=== PATIENT | male | born 1945 | race Caucasian/White ===

== ENCOUNTER → 2016-11-11 | Outpatient (CLI) | payer MEDICARE, BC ==
[2016-11-11 10:07] LABS: Basophils % (A) 1 %; CH 33.6; CHCM 34.6; Eosinophils # (A) 0.6 k/uL (0-0.7); Eosinophils % (A) 9 %; HCT 44.9 % (39.0-53.0); HDW 2.91; HGB 14.8 gm/dL (13.0-17.5); Luc # (Auto) 0.16; Luc % (Auto) 2; Lymphocytes # (A) 1.1 k/uL (1.0-4.8); Lymphocytes % (A) 16 %; MCH 32.3 pg (25.0-35.0); MCV 97.6 fL (80.0-100.0); Mean Platelet Volume 7.7; Monocytes # (A) 0.3 k/uL (0-1.0); Monocytes % (A) 4 %; Neutrophils # (A) 4.6 k/uL (1.3-7.7); Neutrophils % (A) 68 %; RDW 13.3 % (11.5-15.5); WBC 6.7 k/uL (3.8-10.6); WBC (Perox) 7.53
[2016-11-11 10:40] LABS: ALT 36 U/L (21-72); AST 23 U/L (17-59); Alkaline Phosphatase 44 U/L (38-126); Anion Gap 12 mmol/L; Blood Urea Nitrogen 13 mg/dL (9-20); Calcium 9.5 mg/dL (8.4-10.2); Carbon Dioxide 26 mmol/L (22-30); Chloride 102 mmol/L (98-107); Cholesterol 137 mg/dL (<200); Glucose 154 mg/dL (74-99); HDL Cholesterol 39 mg/dL (40-60); Non-African American GFR(MDRD) >60 (>60 ml/min/1.73 sqM); Potassium 4.5 mmol/L (3.5-5.1); Sodium 140 mmol/L (137-145); Total Bilirubin 0.5 mg/dL (0.2-1.3); Total Protein 7.3 g/dL (6.3-8.2); Triglycerides 210 mg/dL (<150)
[2016-11-11 12:53] LABS: Hemoglobin A1C 6.8 % (4.2-6.1)
== END | disposition home or self-care (01) ==
LOC: LABWHC1 08:46
PROVIDERS: ATTEND Internal Medicine
DX: I10 Essential (primary) hypertension (principal); E78.5 Hyperlipidemia, unspecified; E11.9 Type 2 diabetes mellitus without complications; I25.10 Atherosclerotic heart disease of native coronary artery without angina pectoris
CPT/HCPCS: 36415; 80053; 80061; 83036; 84439; 84443; 85025

== ENCOUNTER 2017-05-14 07:50 | Day surgery (SDC) | payer MEDICARE, BC ==
[2017-05-13 09:29] VITALS: BMI 32.3
[~2017-05-14 07:50] MED LIST: LACTATED RINGERS 1,000 ML IV SCH
[2017-05-14 08:18] VITALS: TEMP 98
[2017-05-14] MEDS: NA PHOS,M-B/NA PHOS,DI-BA 133 ML ENEMA RECTAL ONE ×2 (08:27→09:19)
[2017-05-14 08:48] LABS: Glucose,Whole Blood 161 mg/dL (75-99)
[2017-05-14] MEDS ORDERED: LACTATED RINGERS 1,000 ML IV ONE (09:08)
[2017-05-14] MEDS ORDERED: LIDOCAINE 1% INJ 10MG/ML (20 ML MDV) ONE (10:02)
[2017-05-14] MEDS ORDERED: PROPOFOL 10 MG/ML 20 ML VIAL IV ONE (10:02)
--- NOTE | 2017-05-14 10:34 | P.PCN ---
Date of Procedure: 05/14/17 Preoperative Diagnosis: Postoperative Diagnosis: Procedure(s) Performed: Procedure: Total colonoscopy. Preoperative diagnosis: Screening for neoplasia. Postoperative diagnosis: Sigmoid diverticulosis with no evidence of acute diverticulitis, strictures, polyps or cancer. Preparation: HalfLytely prep and couple Fleet enemas before the procedure in the endoscopy unit. Sedation: Was provided by anesthesia. Brief clinical history: The patient is a 71-year-old male who is scheduled for this evaluation because of history of polyps for screening for neoplasia. His last exam was around 6 years ago. The patient has no abdominal complaints, bleeding or anemia. Procedure: With the patient on his left lateral decubitus position and after informed consent and adequate sedation, the perianal area was inspected and it did not show any fissures or fistulas. There were no masses felt on digital rectal examination. The Olympus CFQ 160L video colonoscope was then inserted in the rectum in the usual fashion and advanced to the cecum. There were multiple diverticular orifices seen scattered in the sigmoid with no evidence of acute diverticulitis or strictures. No polyps or tumors were seen. The mucosa appeared healthy. No other pathology noted. The patient tolerated the procedure well. Plan: The patient was reassured. Discussed dietary measures. He will follow up with you as planned. At his age, I did not recommend further surveillance and screening in 5 years and that can be kept as a contingency based on his overall health in the future. Implants: Indications for Procedure: Operative Findings: Description of Procedure:
[2017-05-14 10:38] LABS: Glucose,Whole Blood 158 mg/dL (75-99)
[2017-05-14 10:59] VITALS: BP 132/63; PULSE 66; RESP 20
== END 2017-05-14 11:42 | disposition home or self-care (01) ==
LOC: ORWHC2ENDO 07:50
DX: Z12.11 Encounter for screening for malignant neoplasm of colon (principal); K57.30 Diverticulosis of large intestine without perforation or abscess without bleeding; Z86.010 Personal history of colon polyps; I25.10 Atherosclerotic heart disease of native coronary artery without angina pectoris; E11.9 Type 2 diabetes mellitus without complications; J44.9 Chronic obstructive pulmonary disease, unspecified; I10 Essential (primary) hypertension; E78.5 Hyperlipidemia, unspecified; I38 Endocarditis, valve unspecified; J30.2 Other seasonal allergic rhinitis; H35.30 Unspecified macular degeneration; E07.9 Disorder of thyroid, unspecified; Z79.84 Long term (current) use of oral hypoglycemic drugs; Z79.1 Long term (current) use of non-steroidal anti-inflammatories (NSAID); Z79.02 Long term (current) use of antithrombotics/antiplatelets; Z79.899 Other long term (current) drug therapy
CPT/HCPCS: J2001; J2704; G0105; 45378

== ENCOUNTER 2017-07-20 19:27 | Emergency (ER) | payer MEDICARE, BC ==
[2017-07-20 20:11] VITALS: RESP 18
[2017-07-20] MEDS ORDERED: MAG HYDROX/AL HYDROX/SIMETH 30 ML, HYOSCYAMINE ELIXIR 10 ML, CIMETIDINE HCL 300 MG, LID... PO STA ×4 (20:29)
--- NOTE | 2017-07-20 20:39 | ED ---
General Adult HPI - General Source: patient, RN notes reviewed Mode of arrival: ambulatory Limitations: no limitations <Jeniffer Faustin - Last Filed: 07/20/17 22:15> <Rohit Fernandez - Last Filed: 07/21/17 00:08> - General Chief complaint: ENT Stated complaint: Sore Throat Time Seen by Provider: 07/20/17 20:03 - History of Present Illness Initial comments: This is a 71-year-old male who presents to emergency department with chief complaint of difficulty swallowing. Patient states that approximately 3 days ago he began to have a pain in his throat that he describes as sharp and shooting. Patient states that the pain has now decreased to a dull ache. He reports that now he is having difficulty swallowing and has not eaten since yesterday. He states when he does attempt to swallow there is a dull ache in the bottom of his throat. He denies any difficulty breathing. He denies any known injury or trauma. Denies fever, chills, chest pain, abdominal pain, nausea or vomiting, constipation or diarrhea, dysuria or hematuria, numbness or tingling, headache or vision changes. (Jeniffer Faustin) - Related Data Home Medications Medication Instructions Recorded Confirmed Clopidogrel [Plavix] 75 mg PO DAILY 06/22/15 07/20/17 Fosinopril [Monopril] 20 mg PO QAM 06/22/15 07/20/17 Simvastatin [Zocor] 20 mg PO HS 06/22/15 07/20/17 metFORMIN HCL [Glucophage] 500 mg PO BID 06/22/15 07/20/17 Aspirin 325 mg PO DAILY 05/13/17 07/20/17 Fosinopril [Monopril] 10 mg PO HS 05/13/17 07/20/17 Levothyroxine Sodium 25 mcg PO DAILY 05/13/17 07/20/17 Loratadine [Claritin] 10 mg PO HS 05/13/17 07/20/17 Hydrochlorothiazide [Hydrodiuril] 25 mg PO DAILY 07/20/17 07/20/17 Allergies Allergy/AdvReac Type Severity Reaction Status Date / Time No Known Allergies Allergy Verified 07/20/17 20:34 Review of Systems ROS Other: All systems not noted in ROS Statement are negative. <Jeniffer Faustin - Last Filed: 07/20/17 22:15> ROS Other: All systems not noted in ROS Statement are negative. <Rohit Fernandez - Last Filed: 07/21/17 00:08> ROS Statement: Those systems with pertinent positive or pertinent negative responses have been documented in the HPI. Past Medical History Past Medical History: Coronary Artery Disease (CAD), COPD, Diabetes Mellitus, Eye Disorder, Hyperlipidemia, Hypertension, Myocardial Infarction ([place]), Thyroid Disorder, Vascular Disorder Additional Past Medical History / Comment(s): SEASONAL ALLERGIES, MACULAR DEGENERATION, PVD. Last Myocardial Infarction Date:: 1996? History of Any Multi-Drug Resistant Organisms: None Reported Past Surgical History: Orthopedic Surgery Additional Past Surgical History / Comment(s): 06/27/15 ANA AORTAGRAM WITH PTBA & ANA STENTS. , LEFT SHOULDER WITH HARDWARE ( HARDWARE REMOVED) , LEFT KNEE ligament repair. , FASCIOTOMY OF RIGHT CALF . Past Anesthesia/Blood Transfusion Reactions: No Reported Reaction Past Psychological History: No Psychological Hx Reported Smoking Status: Former smoker Past Alcohol Use History: Rare Past Drug Use History: None Reported - Past Family History Sister(s) Family Medical History: Cancer Additional Family Medical History / Comment(s): Lung Cancer Father Family Medical History: Coronary Artery Disease (CAD), Diabetes Mellitus <Jeniffer Faustin - Last Filed: 07/20/17 22:15> General Exam Limitations: no limitations <Jeniffer Faustin - Last Filed: 07/20/17 22:15> <Rohit Fernandez - Last Filed: 07/21/17 00:08> - General Exam Comments Initial Comments: General: Awake and alert, well-developed; in no apparent distress. HEENT: Head atraumatic, normocephalic. Pupils are equal, round and reactive to light. Extraocular movements intact. Oropharynx moist with mild erythema.. No tonsillar enlargement or exudates. Neck: Supple. Normal ROM. Trachea midline. No adenopathy. Cardiovascular: Regular rate and rhythm. No murmurs, rubs or gallops. Chest symmetrical. Respiratory: Lungs clear to auscultation bilaterally. No wheezes, rales or rhonchi. Normal respiratory effort with no use of accessory muscles. Abdomen: Soft, non-tender, non-distended. No rigidity, rebound or guarding. Normal bowel sounds in all 4 quadrants. Skin: [place], warm and dry without rashes or lesions. Neurological: Alert and oriented x3. CN II-XII grossly intact. Speech is fluent and answers are appropriate. No focal neuro deficits. Psychiatric: Normal mood and affect. No overt signs of depression or anxiety noted. (Jeniffer Faustin) Course <Jeniffer Faustin - Last Filed: 07/20/17 22:15> <Rohit Fernandez - Last Filed: 07/21/17 00:08> Vital Signs 07/20/17 07/20/17 07/20/17 20:07 22:18 22:56 Temperature 97.9 F 98.0 F Pulse Rate 78 76 79 Respiratory 18 18 18 Rate Blood Pressure 157/71 182/59 162/79 O2 Sat by Pulse 96 96 96 Oximetry - Reevaluation(s) Reevaluation #1: This case was discussed with attending physician, Dr. Fernandez, who suggests full cardiac workup. Normal findings of soft tissue neck x-ray were discussed with the patient. This was discussed with the patient who is in agreement. He is in no acute distress at this time. Denies chest pain and difficulty breathing. 07/20/17 21:33 (Jeniffer Faustin) Reevaluation #2: 07/20/17 22:55 Patient was made aware of all findings. He is in no acute distress at this time it is feeling well. Lungs are clear to auscultation and heart sounds are normal. (Jeniffer Faustin) Reevaluation #3: 07/21/17 00:08 PA supervision did personally evaluate the patient did discuss findings with him. His physical exam is unremarkable with no neck chest or abdominal pain. Patient's pain did improved over the past week. It initially started when he tries to swallow something. The evaluation was negative for any acute cardiac event. He also states he had a stress test not too long ago that was normal. ( Rohit Fernandez) EKG Findings - EKG Comments: EKG Findings:: EKG performed at 21:51:42 revealed normal sinus rhythm with ventricular rate of 71 bpm GA interval 190, QRS duration 82 QT/QTC 406/441 <Jeniffer Faustin - Last Filed: 07/20/17 22:15> Medical Decision Making - Lab Data Result diagrams: 07/20/17 21:40 - EKG Data EKG shows normal: sinus rhythm Rate: normal Interpretation: normal EKG - Radiology Data Radiology results: report reviewed <Jeniffer Faustin - Last Filed: 07/20/17 22:15> - Lab Data Result diagrams: 07/20/17 21:40 07/20/17 21:40 <Rohit Fernandez - Last Filed: 07/21/17 00:08> - Medical Decision Making This is a 71-year-old male who presented to the emergency department with complaint of difficulty swallowing. Patient was provided a glass of water for swallow challenge. He was able to swallow 30 mL of water without coughing. Soft tissue neck x-ray revealed no acute abnormalities of soft tissues of the neck. The case was discussed with attending physician, Dr. Fernandez who also evaluated the patient. Full cardiac work up was performed. Troponin was negative.. Chest x-ray was negative for any acute abnormalities. Patient is in no acute distress and denies chest pain or shortness of breath. he'll be discharged home with recommendation to follow up with GI if difficulty with swallowing does not improve. Patient is agreement to the plan and voices understanding. All questions were answered. (Jeniffer Faustin) - Lab Data Lab Results 07/20/17 07/20/17 07/20/17 Range/Units 21:40 21:40 21:40 WBC 7.0 (3.8-10.6) k/uL RBC 4.01 L (4.30-5.90) m/uL Hgb 12.6 L (13.0-17.5) gm/dL Hct 38.0 L (39.0-53.0) % MCV 94.6 (80.0-100.0) fL MCH 31.3 (25.0-35.0) pg MCHC 33.1 (31.0-37.0) g/dL RDW 14.3 (11.5-15.5) % Plt Count 347 (150-450) k/uL Neutrophils % 73 % Lymphocytes % 14 % Monocytes % 4 % Eosinophils % 8 % Basophils % 0 % Neutrophils # 5.0 (1.3-7.7) k/uL Lymphocytes # 1.0 (1.0-4.8) k/uL Monocytes # 0.3 (0-1.0) k/uL Eosinophils # 0.6 (0-0.7) k/uL Basophils # 0.0 (0-0.2) k/uL PT (9.0-12.0) sec INR (<1.2) APTT (22.0-30.0) sec Sodium 134 L (137-145) mmol/L Potassium 4.6 (3.5-5.1) mmol/L Chloride 95 L (98-107) mmol/L Carbon Dioxide 22 (22-30) mmol/L Anion Gap 17 mmol/L BUN 12 (9-20) mg/dL Creatinine 0.70 (0.66-1.25) mg/dL Est GFR (MDRD) Af Amer >60 (>60 ml/min/1.73 sqM) Est GFR (MDRD) Non-Af >60 (>60 ml/min/1.73 sqM) Glucose 124 H (74-99) mg/dL Calcium 9.6 (8.4-10.2) mg/dL Magnesium 2.0 (1.6-2.3) mg/dL Total Bilirubin 0.7 (0.2-1.3) mg/dL AST 37 (17-59) U/L ALT 35 (21-72) U/L Alkaline Phosphatase 69 (38-126) U/L Total Creatine Kinase 96 (55-170) U/L CK-MB (CK-2) 2.1 (0.0-2.4) ng/mL CK-MB (CK-2) Rel Index 2.2 Troponin I <0.012 (0.000-0.034) ng/mL Total Protein 7.8 (6.3-8.2) g/dL Albumin 3.8 (3.5-5.0) g/dL 07/20/17 Range/Units 21:40 WBC (3.8-10.6) k/uL RBC (4.30-5.90) m/uL Hgb (13.0-17.5) gm/dL Hct (39.0-53.0) % MCV (80.0-100.0) fL MCH (25.0-35.0) pg MCHC (31.0-37.0) g/dL RDW (11.5-15.5) % Plt Count (150-450) k/uL Neutrophils % % Lymphocytes % % Monocytes % % Eosinophils % % Basophils % % Neutrophils # (1.3-7.7) k/uL Lymphocytes # (1.0-4.8) k/uL Monocytes # (0-1.0) k/uL Eosinophils # (0-0.7) k/uL Basophils # (0-0.2) k/uL PT 11.6 (9.0-12.0) sec INR 1.2 H (<1.2) APTT 20.2 L (22.0-30.0) sec Sodium (137-145) mmol/L Potassium (3.5-5.1) mmol/L Chloride (98-107) mmol/L Carbon Dioxide (22-30) mmol/L Anion Gap mmol/L BUN (9-20) mg/dL Creatinine (0.66-1.25) mg/dL Est GFR (MDRD) Af Amer (>60 ml/min/1.73 sqM) Est GFR (MDRD) Non-Af (>60 ml/min/1.73 sqM) Glucose (74-99) mg/dL Calcium (8.4-10.2) mg/dL Magnesium (1.6-2.3) mg/dL Total Bilirubin (0.2-1.3) mg/dL AST (17-59) U/L ALT (21-72) U/L Alkaline Phosphatase (38-126) U/L Total Creatine Kinase (55-170) U/L CK-MB (CK-2) (0.0-2.4) ng/mL CK-MB (CK-2) Rel Index Troponin I (0.000-0.034) ng/mL Total Protein (6.3-8.2) g/dL Albumin (3.5-5.0) g/dL - Radiology Data X-ray soft tissue neck findings: Epiglottis appears normal. Prevertebral soft tissues are not enlarged. There is some hypertrophic bridging osteophyte formation in the upper thoracic spine. Subglottic trachea has normal size. Impression: Spondylotic changes. Otherwise negative cervical soft tissue exam. Chest x-ray findings: There is slight blunting of left costophrenic angle. There is no heart failure. Thoracic aorta is atheromatous. Heart size is normal. Lungs are clear of infiltrate. There are ankylotic changes in the thoracic spine. Impression: Mild pleural diaphragmatic scarring at the left lung base is stable. Old left clavicle fracture. Changes of the thoracic spine could relate to ankylosing spondylitis. Chest x-ray stable compared to old exam. (Jeniffer Faustin) Disposition Time of Disposition: 23:12 <Jeniffer Faustin - Last Filed: 07/20/17 22:15> <Rohit Fernandez - Last Filed: 07/21/17 00:08> Clinical Impression: Esophageal pain Disposition: HOME SELF-CARE Condition: Poor Instructions: Pharyngitis (ED) Additional Instructions: Please follow up with Dr. Santoro, GI if no improvement with swallowing. Please follow up with primary care provider within 1-2 days. Return to emergency department if symptoms should worsen or any concerns arise. Referrals: Isabelle Fuentes MD [Primary Care Provider] - 1-2 days Malka Santoro MD [STAFF PHYSICIAN] - 1-2 days
--- NOTE | 2017-07-20 21:20 | XR ---
EXAMINATION TYPE: XR soft tissue neck DATE OF EXAM: 07/20/2017 COMPARISON: NONE HISTORY: Sore throat TECHNIQUE: 2 views FINDINGS: Epiglottis appears normal. Prevertebral soft tissues are not enlarged. There is some hypert rophic bridging osteophyte formation in the upper thoracic spine. Subglottic trachea has normal size. IMPRESSION: Spondylotic changes. Otherwise negative cervical soft tissue exam.
[2017-07-20 22:00] LABS: Basophils % (A) 0 %; CH 32.2; CHCM 34.2; Eosinophils # (A) 0.6 k/uL (0-0.7); Eosinophils % (A) 8 %; HDW 3.24; HGB 12.6 gm/dL (13.0-17.5); Luc # (Auto) 0.06; Luc % (Auto) 1; Lymphocytes % (A) 14 %; MCH 31.3 pg (25.0-35.0); MCHC 33.1 g/dL (31.0-37.0); MCV 94.6 fL (80.0-100.0); Mean Platelet Volume 7.6; Monocytes # (A) 0.3 k/uL (0-1.0); Monocytes % (A) 4 %; Neutrophils % (A) 73 %; RBC 4.01 m/uL (4.30-5.90); RDW 14.3 % (11.5-15.5)
[2017-07-20 22:09] LABS: ALT 35 U/L (21-72); AST 37 U/L (17-59); Alkaline Phosphatase 69 U/L (38-126); Anion Gap 17 mmol/L; Blood Urea Nitrogen 12 mg/dL (9-20); Calcium 9.6 mg/dL (8.4-10.2); Carbon Dioxide 22 mmol/L (22-30); Chloride 95 mmol/L (98-107); Glucose 124 mg/dL (74-99); Non-African American GFR(MDRD) >60 (>60 ml/min/1.73 sqM); Potassium 4.6 mmol/L (3.5-5.1); Sodium 134 mmol/L (137-145); Total Bilirubin 0.7 mg/dL (0.2-1.3); Total Protein 7.8 g/dL (6.3-8.2)
[2017-07-20 22:18] LABS: Creatine Kinase 96 U/L (55-170)
[2017-07-20 22:25] LABS: INR 1.2 (<1.2); Prothrombin Time 11.6 sec (9.0-12.0)
[2017-07-20 22:31] LABS: Creatine Kinase MB 2.1 ng/mL (0.0-2.4); Troponin I <0.012 ng/mL (0.000-0.034)
--- NOTE | 2017-07-20 22:40 | XR ---
EXAMINATION TYPE: XR chest 2V DATE OF EXAM: 07/20/2017 COMPARISON: 06/30/2017 HISTORY: Sore throat. Chest pain. TECHNIQUE: Frontal and lateral views of the chest are obtained. FINDINGS: There is slight blunting of left costophrenic angle. There is no heart failure. Thoracic a reji is atheromatous. Heart size is normal. Lungs are clear of infiltrate. There are ankylotic change s in the thoracic spine. IMPRESSION: Mild pleural diaphragmatic scarring at the left lung base is stable. Old left clavicle f racture. Changes in the thoracic spine could relate to ankylosing spondylitis. Chest x-ray stable com pared to old exam.
[2017-07-20 22:53] LABS: Partial Thromboplastin Time 20.2 sec (22.0-30.0)
[2017-07-20 22:57] VITALS: BP 162/79; PULSE 79; TEMP 98
== END 2017-07-20 23:17 | disposition home or self-care (01) ==
LOC: EC 19:27
DX: K22.8 Other specified diseases of esophagus (principal); M47.814 Spondylosis without myelopathy or radiculopathy, thoracic region; I70.0 Atherosclerosis of aorta; J98.4 Other disorders of lung; R13.10 Dysphagia, unspecified; R07.0 Pain in throat; J39.2 Other diseases of pharynx; Z79.82 Long term (current) use of aspirin; Z79.899 Other long term (current) drug therapy; Z79.84 Long term (current) use of oral hypoglycemic drugs; Z79.02 Long term (current) use of antithrombotics/antiplatelets; Z87.891 Personal history of nicotine dependence; I25.2 Old myocardial infarction; E07.9 Disorder of thyroid, unspecified; I73.9 Peripheral vascular disease, unspecified; E11.9 Type 2 diabetes mellitus without complications; I25.10 Atherosclerotic heart disease of native coronary artery without angina pectoris; I10 Essential (primary) hypertension; E78.5 Hyperlipidemia, unspecified; Z91.09 Other allergy status, other than to drugs and biological substances; Z87.81 Personal history of (healed) traumatic fracture
CPT/HCPCS: 36415; 70360; 71020; 80053; 82550; 82553; 83735; 84484; 85025; 85610; 85730; 93005; 99283

== ENCOUNTER 2017-08-12 08:14 | Day surgery (SDC) | payer MEDICARE, BC ==
[2017-08-07 08:56] VITALS: BMI 31.4
[~2017-08-12 08:14] MED LIST changes: +LIDOCAINE 1% 20 ML VIAL (10MG/ML) FOR IV START INTRADERMA PRN
[2017-08-12 08:32] VITALS: TEMP 97.8
[2017-08-12 08:58] LABS: Glucose,Whole Blood 150 mg/dL (75-99)
[2017-08-12] MEDS ORDERED: PROPOFOL 10 MG/ML 20 ML VIAL IV ONE (09:06)
--- NOTE | 2017-08-12 09:16 | P.PCN ---
Date of Procedure: 08/12/17 Procedure(s) Performed: BRIEF HISTORY: Patient is a 71-year-old, pleasant, white the male, scheduled for an upper endoscopy as a part of evaluation of progressive dysphagia to solids for the last 6 weeks duration. He lost 20 pounds since onset of the symptoms. He feels the food gets stuck in his throat area and has some heartburn also. His and scheduled for an upper endoscopy with possible dilation. PROCEDURE PERFORMED: Esophagogastroduodenoscopy with biopsy PREOPERATIVE DIAGNOSIS: GERD/dysphagia and progressive weight loss. IV sedation per anesthesia. PROCEDURE: After informed consent was obtained, the patient was brought into the endoscopy unit. IV sedation was administered by Anesthesia under continuous monitoring. Initially the Olympus GIF-140 video endoscope was inserted into the mouth. Esophagus intubated without any difficulty. It was gradually advanced into the stomach and duodenum and carefully examined. The bulb and the second part of the duodenum appeared normal. The scope at this time was withdrawn to the stomach, adequately insufflated with air, and upon careful examination, mucosa of the antrum, had mild diffuse gastritis and biopsies were done from this area. The body, cardia and the fundus appeared normal. The scope was then withdrawn into the esophagus. The GE junction was located at 42 cm from the incisors. Small to moderate size hiatal hernia noted There was short segment of Garcia's esophagus extending 1-1.5 cm proximal to the GE junction and this was biopsied. The stomach esophagus appeared normal. There were no erosions or ulcerations seen and the patient tolerated the procedure well. IMPRESSION: 1. Short segment Garcia's esophagus. 2. Small hiatal hernia 3. Mild antral gastritis. RECOMMENDATIONS: The findings of this examination were discussed with the patient as well as his family. He was advised to follow with the biopsy results. He will be started on Prilosec 20 mg twice daily half hour before breakfast and dinnertime and follow anti-reflex measures. He'll be seen in office in 3 weeks.
[2017-08-12 09:36] VITALS: PULSE 69
[2017-08-12 09:51] VITALS: BP 125/67; RESP 16
== END 2017-08-12 09:59 | disposition home or self-care (01) ==
LOC: ORWHC2ENDO 08:14
PROVIDERS: ATTEND Internal Medicine Gastroenterology
DX: K29.50 Unspecified chronic gastritis without bleeding (principal); K22.70 Barrett's esophagus without dysplasia; K44.9 Diaphragmatic hernia without obstruction or gangrene; I25.10 Atherosclerotic heart disease of native coronary artery without angina pectoris; I10 Essential (primary) hypertension; E78.5 Hyperlipidemia, unspecified; J44.9 Chronic obstructive pulmonary disease, unspecified; E11.9 Type 2 diabetes mellitus without complications; E07.9 Disorder of thyroid, unspecified; Z79.899 Other long term (current) drug therapy; Z79.84 Long term (current) use of oral hypoglycemic drugs; Z79.02 Long term (current) use of antithrombotics/antiplatelets; Z79.51 Long term (current) use of inhaled steroids
CPT/HCPCS: 88305; 88342; 43239; J2704

== ENCOUNTER → 2017-10-08 | Outpatient (CLI) | payer MEDICARE, BC ==
[2017-10-08 11:50] LABS: Blood Urea Nitrogen 12 mg/dL (9-20)
--- NOTE | 2017-10-08 12:33 | CT ---
EXAMINATION TYPE: CT brain w con, CT orbits w con DATE OF EXAM: 10/08/2017 COMPARISON: MRI orbits 09/05/[address] orbits 09/02/2017. HISTORY: Sixth Nerve Palsy CT DLP: 1138.07 (accession [id number]), 322.6 (accession [id number]) mGycm Automated exposure control for dose reduction was used. CONTRAST: Performed with IV Contrast, patient injected with 100 mL of Omnipaque 300. Contrast-enhanced CT of the brain and orbits was performed with bone and soft tissue window settings submitted. FINDINGS: CT brain: The ventricles are midline. No evidence for enhancing mass lesion. Mild periventricular whi te matter ischemic demyelination. No evidence for intracranial hemorrhage or extra-axial collection. The bony calvarium is intact. Orbits: No intra or extraconal lesions are identified. The left optic nerve appears to be somewhat th ickened relative to its right-sided counterpart essentially unchanged from prior examination. No evid ence for proptosis. Again noted is mild thickening of the medial left rectus muscle. Improved strandi ng involving the intraconal fat on the left. Remaining extraocular muscles are within normal limits. No definite preseptal cellulitis seen at this time. Lacrimal glands are symmetric and unremarkable at this time. IMPRESSION: 1. There is stable thickening of the left optic nerve and medial rectus muscle on the left. Intracona l fat demonstrates minimal stranding which appears to be improved relative to the prior examination. No enhancing orbital or intracranial lesion identified.
== END | disposition home or self-care (01) ==
LOC: RADCTMAIN 11:06
PROVIDERS: ATTEND Ophthalmology
DX: H47.092 Other disorders of optic nerve, not elsewhere classified, left eye (principal)
CPT/HCPCS: 82565; 84520; 70460; 70481; 36415; Q9967

== ENCOUNTER 2017-10-09 12:46 | Emergency (ER) | payer MEDICARE, BC ==
[2017-10-09 13:02] VITALS: TEMP 97.9
--- NOTE | 2017-10-09 13:51 | ED ---
Extremity Problem HPI - General Chief complaint: Extremity Problem,Nontraumatic Stated complaint: Swollen Hand Time Seen by Provider: 10/09/17 13:03 Source: patient, RN notes reviewed Mode of arrival: ambulatory Limitations: no limitations - History of Present Illness Initial comments: 72-year-old male presents emergency Department chief complaint of left hand redness and swelling. Patient states present last few days minimally painful. States that ice was taken away states it feels that if something may have bit his hand. Patient denies fever, chills he states redness is not spreading he states he is [id number]. He states nothing other than ice helps his symptoms. Patient offers no other complaints. - Related Data Home Medications Medication Instructions Recorded Confirmed Clopidogrel [Plavix] 75 mg PO DAILY 06/22/15 10/09/17 Fosinopril [Monopril] 20 mg PO QAM 06/22/15 10/09/17 Simvastatin [Zocor] 20 mg PO HS 06/22/15 10/09/17 Fosinopril [Monopril] 10 mg PO HS 05/13/17 10/09/17 Levothyroxine Sodium 25 mcg PO DAILY 05/13/17 10/09/17 Loratadine [Claritin] 10 mg PO DAILY 05/13/17 10/09/17 Hydrochlorothiazide [Hydrodiuril] 25 mg PO DAILY 07/20/17 10/09/17 metFORMIN HCL 1,000 mg PO BID 08/07/17 10/09/17 Previous Rx's Medication Instructions Recorded Aspirin EC [Ecotrin Low Dose] 81 mg PO DAILY #30 tablet. 09/05/17 Cephalexin [Keflex] 500 mg PO Q6HR #40 cap 10/09/17 Triamcinolone 0.1% Cream [Kenalog] 1 applicatio TOPICAL BID #15 gram 10/09/17 Allergies Allergy/AdvReac Type Severity Reaction Status Date / Time No Known Allergies Allergy Verified 10/09/17 13:23 Review of Systems ROS Statement: Those systems with pertinent positive or pertinent negative responses have been documented in the HPI. ROS Other: All systems not noted in ROS Statement are negative. Past Medical History Past Medical History: Asthma, COPD, Diabetes Mellitus, Eye Disorder, GERD/Reflux , Hyperlipidemia, Hypertension, Myocardial Infarction ([place]), Osteoarthritis ([place]) , Pneumonia, Thyroid Disorder, Vascular Disorder Additional Past Medical History / Comment(s): MACULAR DEGENERATION, PVD. hx heart murmur,diverticulosis, carotid stenosis Last Myocardial Infarction Date:: 1996? History of Any Multi-Drug Resistant Organisms: None Reported Past Surgical History: Orthopedic Surgery Additional Past Surgical History / Comment(s): ANA AORTAGRAM WITH ANA STENTS. , LEFT SHOULDER WITH HARDWARE ( HARDWARE REMOVED) , LEFT KNEE ligament repair. colonocopy , FASCIOTOMY OF RIGHT CALF egd w/bx. Past Anesthesia/Blood Transfusion Reactions: No Reported Reaction Past Psychological History: No Psychological Hx Reported Smoking Status: Former smoker Past Alcohol Use History: None Reported Past Drug Use History: None Reported - Past Family History Sister(s) Family Medical History: Cancer Additional Family Medical History / Comment(s): Lung Cancer Mother Family Medical History: No Reported History Additional Family Medical History / Comment(s): from "natural causes" Father Family Medical History: Coronary Artery Disease (CAD), Diabetes Mellitus General Exam Limitations: no limitations General appearance: alert, in no apparent distress Head exam: Present: atraumatic, normocephalic, normal inspection Respiratory exam: Present: normal lung sounds bilaterally. Absent: respiratory distress, wheezes, rales, rhonchi, stridor Cardiovascular Exam: Present: regular rate, normal rhythm, normal heart sounds. Absent: systolic murmur, diastolic murmur, rubs, gallop, clicks Extremities exam: Present: other (There is an area of erythema approximately 3 cm in diameter on the dorsal aspect of the hand no Streaking erythema noted of the arm there is no tenderness in the epitrochlear region or left axilla., Arm is neurovascularly intact) Skin exam: Present: warm, dry, intact, normal color. Absent: rash Course Vital Signs 10/09/17 12:58 Temperature 97.9 F Pulse Rate 82 Respiratory 17 Rate Blood Pressure 114/75 O2 Sat by Pulse 99 Oximetry Medical Decision Making - Medical Decision Making 72-year-old male presented for left hand redness and swelling. Patient's symptoms improved with ice. Patient symptoms appear to be cellulitis. This may be caused by possible insect bite. Patient given antibiotics and hydrocortisone cream for local reaction. Disposition Clinical Impression: Cellulitis of left hand Disposition: HOME SELF-CARE Condition: Stable Instructions: Cellulitis (ED) Additional Instructions: Please return to the Emergency Department if symptoms worsen or any other concerns. Prescriptions: Cephalexin [Keflex] 500 mg PO Q6HR #40 cap Triamcinolone 0.1% Cream [Kenalog] 1 applicatio TOPICAL BID #15 gram Referrals: Isabelle Fuentes MD [Primary Care Provider] - 1-2 days Time of Disposition: 13:50
--- NOTE | 2017-10-09 13:54 | XR ---
EXAMINATION TYPE: XR hand complete LT DATE OF EXAM: 10/09/2017 CLINICAL HISTORY: Red and swollen left hand without known trauma. Hand pain. TECHNIQUE: Frontal, lateral and oblique images of the left hand are obtained. COMPARISON: None. FINDINGS: There is no acute fracture/dislocation evident in the left hand. Mild degenerative changes are seen at the first metacarpophalangeal joint and distal interphalangeal joints demonstrated as ma rginal osteophytes, posterior surface sclerosis and joint space narrowing.. The overlying soft tissu e appears unremarkable. IMPRESSION: There is no acute fracture or dislocation in the left hand. Mild degenerative changes th at given distribution are most osteoarthritis.
[2017-10-09 14:07] VITALS: PULSE 80; RESP 12
[2017-10-09 14:09] VITALS: BP 105/49
== END 2017-10-09 14:13 | disposition home or self-care (01) ==
LOC: EC 12:46
DX: L03.114 Cellulitis of left upper limb (principal); E78.5 Hyperlipidemia, unspecified; I10 Essential (primary) hypertension; E11.9 Type 2 diabetes mellitus without complications; I73.9 Peripheral vascular disease, unspecified; E07.9 Disorder of thyroid, unspecified; I25.2 Old myocardial infarction; Z87.891 Personal history of nicotine dependence; Z79.02 Long term (current) use of antithrombotics/antiplatelets; Z79.84 Long term (current) use of oral hypoglycemic drugs; Z79.899 Other long term (current) drug therapy; Z86.79 Personal history of other diseases of the circulatory system
CPT/HCPCS: 99283

== ENCOUNTER 2017-11-08 12:30 | Emergency (ER) | payer MEDICARE, BC ==
[2017-11-08 12:48] VITALS: TEMP 98
[2017-11-08 13:02] VITALS: BP 137/64
[2017-11-08] MEDS ORDERED: CEPHALEXIN 500 MG CAP PO STA (13:03)
--- NOTE | 2017-11-08 13:05 | ED ---
Skin/Abscess/FB HPI - General Chief complaint: Skin/Abscess/Foreign Body Stated complaint: Poss Cellulitis Time Seen by Provider: 11/08/17 12:48 Source: patient Mode of arrival: ambulatory Limitations: no limitations - History of Present Illness Initial comments: 72-year-old male patient presents to the emergency department today for evaluation of redness and swelling to the dorsal aspect of the left hand. Patient states that he noticed the redness and swelling yesterday. States he previously was treated for cellulitis of this and last month. He states he did complete the antibiotics and full. States he did have full resolution of the infection however yesterday it started again. Patient states he is having some minor discomfort to the left thumb. States that he has been shoveling outside, but denies any other injuries. He denies any fevers or chills. Denies any other symptoms. Patient denies any recent shortness breath, chest pain, abdominal pain, nausea, vomiting, diarrhea, constipation, back pain, numbness, tingling, dizziness, weakness, hematuria, dysuria, urinary urgency, urinary frequency, headache, visual changes, or any other complaints. - Related Data Home Medications Medication Instructions Recorded Confirmed Clopidogrel [Plavix] 75 mg PO DAILY 06/22/15 10/09/17 Fosinopril [Monopril] 20 mg PO QAM 06/22/15 10/09/17 Simvastatin [Zocor] 20 mg PO HS 06/22/15 10/09/17 Fosinopril [Monopril] 10 mg PO HS 05/13/17 10/09/17 Levothyroxine Sodium 25 mcg PO DAILY 05/13/17 10/09/17 Loratadine [Claritin] 10 mg PO DAILY 05/13/17 10/09/17 Hydrochlorothiazide [Hydrodiuril] 25 mg PO DAILY 07/20/17 10/09/17 metFORMIN HCL 1,000 mg PO BID 08/07/17 10/09/17 Previous Rx's Medication Instructions Recorded Aspirin EC [Ecotrin Low Dose] 81 mg PO DAILY #30 tablet. 09/05/17 Cephalexin [Keflex] 500 mg PO Q6HR #40 cap 10/09/17 Triamcinolone 0.1% Cream [Kenalog] 1 applicatio TOPICAL BID #15 gram 10/09/17 Cephalexin [Keflex] 500 mg PO Q6H #40 cap 11/08/17 Allergies Allergy/AdvReac Type Severity Reaction Status Date / Time No Known Allergies Allergy Verified 11/08/17 12:48 Review of Systems ROS Statement: Those systems with pertinent positive or pertinent negative responses have been documented in the HPI. ROS Other: All systems not noted in ROS Statement are negative. Past Medical History Past Medical History: Asthma, COPD, Diabetes Mellitus, Eye Disorder, GERD/Reflux , Hyperlipidemia, Hypertension, Myocardial Infarction ([place]), Osteoarthritis (OA) , Pneumonia, Thyroid Disorder, Vascular Disorder Additional Past Medical History / Comment(s): MACULAR DEGENERATION, PVD. hx heart murmur,diverticulosis, carotid stenosis Last Myocardial Infarction Date:: 1996? History of Any Multi-Drug Resistant Organisms: None Reported Past Surgical History: Orthopedic Surgery Additional Past Surgical History / Comment(s): ANA AORTAGRAM WITH ANA STENTS. , LEFT SHOULDER WITH HARDWARE ( HARDWARE REMOVED) , LEFT KNEE ligament repair. colonocopy , FASCIOTOMY OF RIGHT CALF egd w/bx. Past Anesthesia/Blood Transfusion Reactions: No Reported Reaction Past Psychological History: No Psychological Hx Reported Smoking Status: Former smoker Past Alcohol Use History: None Reported Past Drug Use History: None Reported - Past Family History Sister(s) Family Medical History: Cancer Additional Family Medical History / Comment(s): Lung Cancer Mother Family Medical History: No Reported History Additional Family Medical History / Comment(s): from "natural causes" Father Family Medical History: Coronary Artery Disease (CAD), Diabetes Mellitus General Exam Limitations: no limitations General appearance: alert, in no apparent distress, other (This is a well- developed, well-nourished elderly male patient in no acute distress. Vital signs upon presentation are temperature 98.0F, pulse 85, respirations 18, blood pressure 91/54, did recheck and was 137/64. Pulse ox 94% on room air.) Eye exam: Present: normal appearance, PERRL, EOMI. Absent: scleral icterus, conjunctival injection, periorbital swelling ENT exam: Present: normal exam, normal oropharynx, mucous membranes moist Respiratory exam: Present: normal lung sounds bilaterally. Absent: respiratory distress, wheezes, rales, rhonchi, stridor Cardiovascular Exam: Present: regular rate, normal rhythm, normal heart sounds. Absent: systolic murmur, diastolic murmur, rubs, gallop, clicks Extremities exam: Present: full ROM, normal capillary refill, other (Swelling, redness to the dorsal aspect of the left hand, warmth near the thumb. Erythema is blanchable. Erythema does not extend over the joint spaces. Patient has full range of motion without pain or limitation. Radial pulse 2+.). Absent: normal inspection, tenderness, pedal edema, joint swelling, calf tenderness Neurological exam: Present: alert, oriented X3, CN II-XII intact Psychiatric exam: Present: normal affect, normal mood Skin exam: Present: warm, dry, intact, normal color. Absent: rash Course Vital Signs 11/08/17 11/08/17 12:46 13:01 Temperature 98.0 F Pulse Rate 85 Respiratory 18 Rate Blood Pressure 91/54 137/64 O2 Sat by Pulse 94 L Oximetry Medical Decision Making - Medical Decision Making 72-year-old male patient presented to the emergency department today for evaluation of redness and swelling to the dorsal aspect of the left hand. Physical exam is consistent with cellulitis of the hand. He will be started on Keflex. Patient is afebrile. Vital signs are stable. Patient's does have an appointment with the primary care physician tomorrow, patient states that he will have the physician look at his hand. Return parameters were discussed in detail. He is instructed to return here for any new, worsening, or concerning symptoms. He verbalizes understanding and agrees with this plan. Disposition Clinical Impression: Cellulitis of left hand Disposition: HOME SELF-CARE Condition: Good Instructions: Cellulitis (ED) Additional Instructions: Complete antibiotic prescription in full, even if her symptoms improve. Follow- up with your primary care physician for recheck in 1-2 days. Return here for recheck especially if you develop fever or if the redness starts to spread. Return here immediately for any new, worsening, or concerning symptoms. Prescriptions: Cephalexin [Keflex] 500 mg PO Q6H #40 cap Referrals: Isabelle Fuentes MD [Primary Care Provider] - 1-2 days Time of Disposition: 13:04
[2017-11-08 13:26] VITALS: PULSE 80; RESP 16
== END 2017-11-08 13:27 | disposition home or self-care (01) ==
LOC: EC 12:30
DX: L03.114 Cellulitis of left upper limb (principal); E78.5 Hyperlipidemia, unspecified; E07.9 Disorder of thyroid, unspecified; E11.9 Type 2 diabetes mellitus without complications; I10 Essential (primary) hypertension; I25.2 Old myocardial infarction; Z87.891 Personal history of nicotine dependence; Z79.02 Long term (current) use of antithrombotics/antiplatelets; Z79.84 Long term (current) use of oral hypoglycemic drugs; Z79.899 Other long term (current) drug therapy
CPT/HCPCS: 99283

== ENCOUNTER → 2017-11-09 | Outpatient (CLI) | payer MEDICARE, BC ==
[2017-11-09 15:17] LABS: Anisocytosis Slight; Basophils % (A) 0 %; Eosinophils # (A) 0.7 k/uL (0-0.7); Eosinophils % (A) 8 %; HCT 28.3 % (39.0-53.0); HGB 8.7 gm/dL (13.0-17.5); Hypochromasia Moderate; Lymphocytes # (A) 0.8 k/uL (1.0-4.8); Lymphocytes % (A) 9 %; MCH 26.2 pg (25.0-35.0); MCHC 30.7 g/dL (31.0-37.0); Monocytes # (A) 0.2 k/uL (0-1.0); Monocytes % (A) 3 %; Neutrophils # (A) 7.2 k/uL (1.3-7.7); Neutrophils % (A) 80 %; Platelet Count 419 k/uL (150-450); RBC 3.31 m/uL (4.30-5.90); RDW 16.5 % (11.5-15.5); WBC 9.1 k/uL (3.8-10.6)
[2017-11-09 15:20] LABS: MCV 85.5 fL (80.0-100.0)
[2017-11-09 19:07] LABS: Vitamin D 25 Hydroxy 54.2 ng/mL (30.0-100.0)
[2017-11-09 20:37] LABS: Thyroid Peroxidase Antibodies <28.0 U/mL (0.0-60.0)
[2017-11-10 05:24] LABS: Angiotensin-1 Converting Enz. 5 U/L (8-52)
[2017-11-10 12:01] LABS: Thyroid Stim Immun Quant <0.10 IU/L (<0.10)
[2017-11-10 15:00] LABS: C-ANCA <1:20 Titer (<1:20); P-ANCA <1:20 Titer (<1:20)
[2017-11-12 18:38] LABS: Selenium 107 mcg/L (63-160)
[2017-11-17 10:35] LABS: Lysozyme, Serum or Body Fluid 11.2 mcg/mL (5.0-11.0)
== END | disposition home or self-care (01) ==
LOC: LABWHC1 14:02
PROVIDERS: ATTEND Ophthalmology Ophthalmic Plastic and Reconstructive Surgery
DX: E56.9 Vitamin deficiency, unspecified (principal); E05.00 Thyrotoxicosis with diffuse goiter without thyrotoxic crisis or storm; H05.10 Unspecified chronic inflammatory disorders of orbit; H02.846 Edema of left eye, unspecified eyelid
CPT/HCPCS: 36415; 82164; 82306; 84255; 84445; 84481; 85025; 85549; 86255; 86376

== ENCOUNTER → 2017-11-13 | Outpatient (CLI) | payer MEDICARE, BC ==
[2017-11-13 19:23] LABS: Folate, Serum 21.1 ng/mL; Iron Saturation 7.96 (15.00-50.00); Protein, Total 6.6 g/dL (6.2-8.2)
[2017-11-17 09:55] LABS: Albumin 2.32 g/dL (3.80-4.90); Gamma Globulin 1.63 g/dL (0.70-1.50)
[2017-11-17 11:11] LABS: Lyme IgG/IgM 0.1 Index
== END | disposition home or self-care (01) ==
LOC: LABWHC1 13:29
PROVIDERS: ATTEND Internal Medicine Infectious Disease
DX: D64.9 Anemia, unspecified (principal)
CPT/HCPCS: 36415; 82607; 82746; 83540; 83550; 84165; 85045; 85652; 86618

== ENCOUNTER → 2017-11-23 | Outpatient (CLI) | payer MEDICARE, BC ==
[2017-11-23 15:13] LABS: Anisocytosis Slight; Basophils % (A) 0 %; Eosinophils # (A) 1.1 k/uL (0-0.7); Eosinophils % (A) 13 %; HCT 32.5 % (39.0-53.0); HGB 9.6 gm/dL (13.0-17.5); Hypochromasia Marked; Lymphocytes % (A) 12 %; MCH 25.8 pg (25.0-35.0); MCHC 29.6 g/dL (31.0-37.0); MCV 87.3 fL (80.0-100.0); Mean Platelet Volume 7.1; Monocytes # (A) 0.2 k/uL (0-1.0); Monocytes % (A) 3 %; Neutrophils # (A) 6.1 k/uL (1.3-7.7); Neutrophils % (A) 72 %; Platelet Count 408 k/uL (150-450); RBC 3.72 m/uL (4.30-5.90); RDW 17.3 % (11.5-15.5); WBC 8.5 k/uL (3.8-10.6)
[2017-11-23 15:15] LABS: ALT 32 U/L (21-72); AST 25 U/L (17-59); Albumin 3.2 g/dL (3.5-5.0); Alkaline Phosphatase 99 U/L (38-126); Anion Gap 9 mmol/L; Blood Urea Nitrogen 16 mg/dL (9-20); Calcium 9.4 mg/dL (8.4-10.2); Carbon Dioxide 31 mmol/L (22-30); Chloride 96 mmol/L (98-107); Glucose 87 mg/dL (74-99); Potassium 4.7 mmol/L (3.5-5.1); Sodium 136 mmol/L (137-145); Total Bilirubin 0.2 mg/dL (0.2-1.3); Total Protein 6.9 g/dL (6.3-8.2)
[2017-11-23 15:20] LABS: Reticulocyte % 2.4 % (0.5-2.0)
[2017-11-23 15:31] LABS: T4, Free (Free Thyroxine) 0.95 ng/dL (0.78-2.19)
[2017-11-23 16:27] LABS: Erythrocyte Sedimentation Rate 70 mm/hr (0-15)
[2017-11-23 19:18] LABS: Iron Saturation 12.64 (15.00-50.00)
== END | disposition home or self-care (01) ==
LOC: LABWHC1 14:34
PROVIDERS: ATTEND Internal Medicine
DX: D50.9 Iron deficiency anemia, unspecified (principal); I10 Essential (primary) hypertension; E87.1 Hypo-osmolality and hyponatremia; E78.00 Pure hypercholesterolemia, unspecified; I73.9 Peripheral vascular disease, unspecified; E11.9 Type 2 diabetes mellitus without complications; L03.90 Cellulitis, unspecified
CPT/HCPCS: 36415; 80053; 82607; 82728; 83540; 83550; 84439; 84443; 85025; 85045; 85652; 86038

== ENCOUNTER → 2017-12-07 | Outpatient (CLI) | payer MEDICARE, BC ==
--- NOTE | 2017-12-07 17:52 | FL ---
EXAMINATION: Small bowel follow through DATE: 12/07/2017 CLINICAL INDICATION: 72-year-old male anemia due to blood loss. Colonoscopy with benign polyp removal 8 months ago. COMPARISON: None Total Fluoroscopy Time: 33 seconds. Total images: 20. FINDINGS: Fish Bin Tender image shows nonobstructive bowel gas pattern with a mild to moderate stool. There are changes o f ankylosing spondylitis with symmetrical syndesmophytes, dagger sign, and bilateral SI joint fusion. There is a left-sided iliac vessel stent and mild degenerative changes at the hips. Following administration of barium, serial films were carried out to 3 hours. Barium is seen to reach the colon. Loops of jejunum and ileum are compressed and examined under fluoroscopy. The small bowel loops have a normal-caliber. Oral contrast clears the distal ileum quickly limiting i ts assessment. Mucosal pattern is within normal limits. No intrinsic or extrinsic process is suspecte d. IMPRESSION: 1. Bony changes of ankylosing spondylitis. 2. Small bowel transit time falls at the upper limits of normal (3 hours). 3. Contrast clears the distal ileum quickly causing limitation in assessment of this region. Otherwis e, no discrete abnormality seen.
== END | disposition home or self-care (01) ==
LOC: RADFLMAIN 08:54
PROVIDERS: ATTEND Internal Medicine Hematology & Oncology
DX: D50.0 Iron deficiency anemia secondary to blood loss (chronic) (principal)
CPT/HCPCS: 74250

== ENCOUNTER 2017-12-18 15:19 | Emergency (ER) | payer MEDICARE, BC ==
[2017-12-18 15:57] VITALS: BP 120/60; PULSE 67; RESP 20; TEMP 97.7
--- NOTE | 2017-12-18 16:52 | ED ---
General Adult HPI - General Chief complaint: Extremity Problem,Nontraumatic Stated complaint: Hand swelling Source: patient, RN notes reviewed Mode of arrival: ambulatory Limitations: no limitations - History of Present Illness Initial comments: 72-year-old male presents to the emergency department for a chief complaint of bilateral hand tingling. It has been ongoing for about 4 days. Patient states he is a diabetic and has neuropathy in his feet. He sometimes has neuropathy in his hands. Patient states he saw Dr. Fuentes earlier this week but he did not focus on the neuropathy. 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 Patient denies any shortness of breath, chest pain, or abdominal pain. Patient denies headache or change of vision. Patient states he has no other complaints besides his hands tingling. - Related Data Home Medications Medication Instructions Recorded Confirmed Clopidogrel [Plavix] 75 mg PO DAILY 06/22/15 12/18/17 Fosinopril [Monopril] 20 mg PO QA 06/22/15 12/18/17 Simvastatin [Zocor] 20 mg PO HS 06/22/15 12/18/17 Fosinopril [Monopril] 10 mg PO HS 05/13/17 12/18/17 Levothyroxine Sodium 25 mcg PO DAILY 05/13/17 12/18/17 Loratadine [Claritin] 10 mg PO DAILY 05/13/17 12/18/17 Hydrochlorothiazide [Hydrodiuril] 25 mg PO DAILY 07/20/17 12/18/17 metFORMIN HCL 1,000 mg PO BID 08/07/17 12/18/17 Fluticasone/Salmeterol [Advair 1 puff INHALATION RT-BID 12/18/17 12/18/17 100-50 Diskus] Omeprazole [PriLOSEC] 20 mg PO AC-BID 12/18/17 12/18/17 Previous Rx's Medication Instructions Recorded Aspirin EC [Ecotrin Low Dose] 81 mg PO DAILY #30 tablet. 09/05/17 Allergies Allergy/AdvReac Type Severity Reaction Status Date / Time No Known Allergies Allergy Verified 12/18/17 16:39 Review of Systems ROS Statement: Those systems with pertinent positive or pertinent negative responses have been documented in the HPI. ROS Other: All systems not noted in ROS Statement are negative. Past Medical History Past Medical History: Asthma, COPD, Diabetes Mellitus, Eye Disorder, GERD/Reflux , Hyperlipidemia, Hypertension, Myocardial Infarction ([place]), Osteoarthritis (OA) , Pneumonia, Thyroid Disorder, Vascular Disorder Additional Past Medical History / Comment(s): MACULAR DEGENERATION, PVD. hx heart murmur,diverticulosis, carotid stenosis Last Myocardial Infarction Date:: 1996? History of Any Multi-Drug Resistant Organisms: None Reported Past Surgical History: Orthopedic Surgery Additional Past Surgical History / Comment(s): ANA AORTAGRAM WITH ANA STENTS. , LEFT SHOULDER WITH HARDWARE ( HARDWARE REMOVED) , LEFT KNEE ligament repair. colonocopy , FASCIOTOMY OF RIGHT CALF egd w/bx. Past Anesthesia/Blood Transfusion Reactions: No Reported Reaction Past Psychological History: No Psychological Hx Reported Smoking Status: Former smoker Past Alcohol Use History: None Reported Past Drug Use History: None Reported - Past Family History Sister(s) Family Medical History: Cancer Additional Family Medical History / Comment(s): Lung Cancer Mother Family Medical History: No Reported History Additional Family Medical History / Comment(s): from "natural causes" Father Family Medical History: Coronary Artery Disease (CAD), Diabetes Mellitus General Exam Limitations: no limitations Head exam: Present: atraumatic, normocephalic, normal inspection Eye exam: Present: normal appearance, PERRL, EOMI. Absent: scleral icterus, conjunctival injection, periorbital swelling ENT exam: Present: normal exam, mucous membranes moist Neck exam: Present: normal inspection, full ROM. Absent: tenderness, meningismus, lymphadenopathy Respiratory exam: Present: normal lung sounds bilaterally. Absent: respiratory distress, wheezes, rales, rhonchi, stridor Cardiovascular Exam: Present: regular rate, normal rhythm, normal heart sounds. Absent: systolic murmur, diastolic murmur, rubs, gallop, clicks Extremities exam: Present: normal inspection, full ROM, normal capillary refill (Refill less than 2 seconds in upper extremities bilaterally), other (2+ radial pulses in upper extremities bilaterally. Patient complains of tingling in the hands bilaterally.). Absent: tenderness (No tenderness in upper extremities bilaterally), pedal edema, joint swelling, calf tenderness Course Vital Signs 12/18/17 15:53 Temperature 97.7 F Pulse Rate 67 Respiratory 20 Rate Blood Pressure 120/60 O2 Sat by Pulse 99 Oximetry Medical Decision Making - Medical Decision Making 72-year-old male presents to the emergency department for complaints of eye lateral hand tingling. Patient is a diabetic and has a history of neuropathy in his feet. Patient states he also feels tingling in his hands are pending the time. Patient states today it is really bothering him and he feels like he cannot hold things as tightly. Patient denies swelling in the wrists. He states he has some osteoarthritis. Patient denies pain in the elbows or shoulders. Patient saw his primary care doctor Igor about [address] Costa did not address the problem. Patient states he is trying an [id number] supplement that is supposed help with neuropathy. Patient states he takes Aleve. Discussed adding Tylenol to his pain relief regimen. Patient says he will try that and also schedule an appointment with Dr. Costa for Thursday to discuss this issue. Disposition Clinical Impression: Peripheral neuropathy Disposition: HOME SELF-CARE Condition: Good Instructions: Diabetic Peripheral Neuropathy (ED) Additional Instructions: Please add Tylenol to your pain relief regimen of Aleve. Please follow-up with Dr. Costa for this problem. Please return to the emergency department if symptoms worsen. Referrals: Isabelle Fuentes MD [Primary Care Provider] - 1-2 days Time of Disposition: 17:05
== END 2017-12-18 18:07 | disposition home or self-care (01) ==
LOC: EC 15:19
DX: E11.42 Type 2 diabetes mellitus with diabetic polyneuropathy (principal); J44.9 Chronic obstructive pulmonary disease, unspecified; K21.9 Gastro-esophageal reflux disease without esophagitis; E78.5 Hyperlipidemia, unspecified; I10 Essential (primary) hypertension; I25.2 Old myocardial infarction; E07.9 Disorder of thyroid, unspecified; Z87.891 Personal history of nicotine dependence; Z79.84 Long term (current) use of oral hypoglycemic drugs; Z79.01 Long term (current) use of anticoagulants; Z79.899 Other long term (current) drug therapy
CPT/HCPCS: 99282

== ENCOUNTER 2018-01-07 09:54 | Inpatient (IN) | payer MEDICARE, BC ==
--- NOTE | 2018-01-07 10:11 | ED ---
Fall HPI - General Chief Complaint: Fall Stated Complaint: Fall Time Seen by Provider: 01/07/18 10:00 Source: patient, family, EMS, RN notes reviewed, old records reviewed Mode of arrival: ambulatory - History of Present Illness Initial Comments: This is a 72-year-old male with a history of frequent falls recently who states his legs gave out from underneath him when he was in the bathroom. He fell he did not lose consciousness he did strike the floor complains some nose pain no head neck or back pain. Just states he scraped his forehead. He has no blurry vision nausea vomiting loss of function to his upper or lower extremities he does have a wound he states his right foot. MD Complaint: fall - Related Data Home Medications Medication Instructions Recorded Confirmed Clopidogrel [Plavix] 75 mg PO DAILY 06/22/15 01/07/18 Fosinopril [Monopril] 20 mg PO QAM 06/22/15 01/07/18 Simvastatin [Zocor] 20 mg PO HS 06/22/15 01/07/18 Fosinopril [Monopril] 10 mg PO HS 05/13/17 01/07/18 Levothyroxine Sodium 25 mcg PO DAILY 05/13/17 01/07/18 Loratadine [Claritin] 10 mg PO DAILY 05/13/17 01/07/18 Hydrochlorothiazide [Hydrodiuril] 25 mg PO DAILY 07/20/17 01/07/18 metFORMIN HCL 1,000 mg PO BID 08/07/17 01/07/18 Fluticasone/Salmeterol [Advair 1 puff INHALATION RT-BID 12/18/17 01/07/18 100-50 Diskus] Omeprazole [PriLOSEC] 20 mg PO AC-BID 12/18/17 01/07/18 Previous Rx's Medication Instructions Recorded Aspirin EC [Ecotrin Low Dose] 81 mg PO DAILY #30 tablet. 09/05/17 Allergies Allergy/AdvReac Type Severity Reaction Status Date / Time No Known Allergies Allergy Verified 01/07/18 10:48 Review of Systems ROS Statement: Those systems with pertinent positive or pertinent negative responses have been documented in the HPI. ROS Other: All systems not noted in ROS Statement are negative. Past Medical History Past Medical History: Asthma, COPD, Diabetes Mellitus, Eye Disorder, GERD/Reflux , Hyperlipidemia, Hypertension, Myocardial Infarction ([place]), Osteoarthritis ([place]) , Pneumonia, Thyroid Disorder, Vascular Disorder Additional Past Medical History / Comment(s): MACULAR DEGENERATION, PVD. hx heart murmur,diverticulosis, carotid stenosis Last Myocardial Infarction Date:: 1996? History of Any Multi-Drug Resistant Organisms: None Reported Past Surgical History: Orthopedic Surgery Additional Past Surgical History / Comment(s): ANA AORTAGRAM WITH ANA STENTS. , LEFT SHOULDER WITH HARDWARE ( HARDWARE REMOVED) , LEFT KNEE ligament repair. colonocopy , FASCIOTOMY OF RIGHT CALF egd w/bx. Past Anesthesia/Blood Transfusion Reactions: No Reported Reaction Past Psychological History: No Psychological Hx Reported Smoking Status: Former smoker Past Alcohol Use History: None Reported Past Drug Use History: None Reported - Past Family History Sister(s) Family Medical History: Cancer Additional Family Medical History / Comment(s): Lung Cancer Mother Family Medical History: No Reported History Additional Family Medical History / Comment(s): from "natural causes" Father Family Medical History: Coronary Artery Disease (CAD), Diabetes Mellitus General Exam - General Exam Comments Initial Comments: This is a well-developed well-nourished awake alert oriented times 3 male he did present by EMS with a cervical collar in place. He does demonstrate a Xavier Coma Scale currently of 15 General appearance: alert, in no apparent distress Head exam: Present: normocephalic, other (Abrasion seen over the mid forehead with abrasion seen over the nasion. Is tenderness palpation of the nose no forehead tenderness no step-off or crepitation nausea vomiting blood was seen on the superficial skin and scalp no other identifiable wounds) Eye exam: Present: normal appearance, PERRL, EOMI. Absent: scleral icterus, conjunctival injection, periorbital swelling ENT exam: Present: mucous membranes dry, TM's normal bilaterally, other (Boggy nasal mucosa tenderness over the nasion abrasion seen no active bleeding at this time.) Neck exam: Present: normal inspection. Absent: tenderness, meningismus, lymphadenopathy Respiratory exam: Present: normal lung sounds bilaterally. Absent: respiratory distress, wheezes, rales, rhonchi, stridor Cardiovascular Exam: Present: regular rate, normal rhythm, normal heart sounds. Absent: systolic murmur, diastolic murmur, rubs, gallop, clicks GI/Abdominal exam: Present: soft, normal bowel sounds. Absent: distended, tenderness, guarding, rebound, rigid Extremities exam: Present: full ROM, normal capillary refill, other (Also abrasion to the right knee.). Absent: tenderness, pedal edema, joint swelling, calf tenderness Back exam: Present: normal inspection Neurological exam: Present: alert, oriented X3, CN II-XII intact Psychiatric exam: Present: normal affect, normal mood Skin exam: Present: warm, dry, intact, normal color. Absent: rash Course Vital Signs 01/07/18 01/07/18 01/07/18 09:56 11:59 13:47 Temperature 97.7 F Pulse Rate 101 H 94 87 Respiratory 18 17 19 Rate Blood Pressure 104/55 103/59 110/56 O2 Sat by Pulse 95 97 96 Oximetry Medical Decision Making - Medical Decision Making I did discuss findings with patient family patient has demonstrated marked weakness recently. He has not had chest pain his troponin was 0.121. He will be admitted I did discuss the case with Dr. Goddard who did come the emergency department to see the patient. - Lab Data Result diagrams: 01/07/18 10:12 01/07/18 10:12 Lab Results 01/07/18 01/07/18 01/07/18 Range/Units 10:12 10:12 10:12 WBC (3.8-10.6) k/uL RBC (4.30-5.90) m/uL Hgb (13.0-17.5) gm/dL Hct (39.0-53.0) % MCV (80.0-100.0) fL MCH (25.0-35.0) pg MCHC (31.0-37.0) g/dL RDW (11.5-15.5) % Plt Count (150-450) k/uL Neutrophils % % Lymphocytes % % Monocytes % % Eosinophils % % Basophils % % Neutrophils # (1.3-7.7) k/uL Lymphocytes # (1.0-4.8) k/uL Monocytes # (0-1.0) k/uL Eosinophils # (0-0.7) k/uL Basophils # (0-0.2) k/uL Hypochromasia Anisocytosis PT 11.6 (9.0-12.0) sec INR 1.2 H (<1.2) APTT 25.1 (22.0-30.0) sec D-Dimer (<0.60) mg/L FEU Sodium 134 L (137-145) mmol/L Potassium 5.2 H (3.5-5.1) mmol/L Chloride 98 (98-107) mmol/L Carbon Dioxide 23 (22-30) mmol/L Anion Gap 13 mmol/L BUN 26 H (9-20) mg/dL Creatinine 0.74 (0.66-1.25) mg/dL Est GFR (CKD-EPI)AfAm >90 (>60 ml/min/1.73 sqM) Est GFR (CKD-EPI)NonAf >90 (>60 ml/min/1.73 sqM) Glucose 97 (74-99) mg/dL Calcium 11.5 H (8.4-10.2) mg/dL Magnesium 1.8 (1.6-2.3) mg/dL Total Bilirubin 0.5 (0.2-1.3) mg/dL AST 35 (17-59) U/L ALT 23 (21-72) U/L Alkaline Phosphatase 67 (38-126) U/L Ammonia (<30) umol/L Total Creatine Kinase 420 H (55-170) U/L CK-MB (CK-2) 7.1 H* (0.0-2.4) ng/mL CK-MB (CK-2) Rel Index 1.7 Troponin I (0.000-0.034) ng/mL Total Protein 4.7 L (6.3-8.2) g/dL Albumin 2.2 L (3.5-5.0) g/dL Amylase <30 L (30-110) U/L Lipase <10 L (23-300) U/L Serum Alcohol <10 mg/dL 01/07/18 01/07/18 01/07/18 Range/Units 10:12 10:12 10:12 WBC 18.8 H (3.8-10.6) k/uL RBC 3.95 L (4.30-5.90) m/uL Hgb 10.9 L (13.0-17.5) gm/dL Hct 34.5 L (39.0-53.0) % MCV 87.5 (80.0-100.0) fL MCH 27.7 (25.0-35.0) pg MCHC 31.7 (31.0-37.0) g/dL RDW 18.0 H (11.5-15.5) % Plt Count 487 H (150-450) k/uL Neutrophils % 95 % Lymphocytes % 2 % Monocytes % 2 % Eosinophils % 1 % Basophils % 0 % Neutrophils # 17.9 H (1.3-7.7) k/uL Lymphocytes # 0.4 L (1.0-4.8) k/uL Monocytes # 0.3 (0-1.0) k/uL Eosinophils # 0.1 (0-0.7) k/uL Basophils # 0.0 (0-0.2) k/uL Hypochromasia Slight Anisocytosis Slight PT (9.0-12.0) sec INR (<1.2) APTT (22.0-30.0) sec D-Dimer 2.90 H (<0.60) mg/L FEU Sodium (137-145) mmol/L Potassium (3.5-5.1) mmol/L Chloride (98-107) mmol/L Carbon Dioxide (22-30) mmol/L Anion Gap mmol/L BUN (9-20) mg/dL Creatinine (0.66-1.25) mg/dL Est GFR (CKD-EPI)AfAm (>60 ml/min/1.73 sqM) Est GFR (CKD-EPI)NonAf (>60 ml/min/1.73 sqM) Glucose (74-99) mg/dL Calcium (8.4-10.2) mg/dL Magnesium (1.6-2.3) mg/dL Total Bilirubin (0.2-1.3) mg/dL AST (17-59) U/L ALT (21-72) U/L Alkaline Phosphatase (38-126) U/L Ammonia (<30) umol/L Total Creatine Kinase (55-170) U/L CK-MB (CK-2) (0.0-2.4) ng/mL CK-MB (CK-2) Rel Index Troponin I 0.121 H* (0.000-0.034) ng/mL Total Protein (6.3-8.2) g/dL Albumin (3.5-5.0) g/dL Amylase (30-110) U/L Lipase (23-300) U/L Serum Alcohol mg/dL 01/07/18 Range/Units 11:44 WBC (3.8-10.6) k/uL RBC (4.30-5.90) m/uL Hgb (13.0-17.5) gm/dL Hct (39.0-53.0) % MCV (80.0-100.0) fL MCH (25.0-35.0) pg MCHC (31.0-37.0) g/dL RDW (11.5-15.5) % Plt Count (150-450) k/uL Neutrophils % % Lymphocytes % % Monocytes % % Eosinophils % % Basophils % % Neutrophils # (1.3-7.7) k/uL Lymphocytes # (1.0-4.8) k/uL Monocytes # (0-1.0) k/uL Eosinophils # (0-0.7) k/uL Basophils # (0-0.2) k/uL Hypochromasia Anisocytosis PT (9.0-12.0) sec INR (<1.2) APTT (22.0-30.0) sec D-Dimer (<0.60) mg/L FEU Sodium (137-145) mmol/L Potassium (3.5-5.1) mmol/L Chloride (98-107) mmol/L Carbon Dioxide (22-30) mmol/L Anion Gap mmol/L BUN (9-20) mg/dL Creatinine (0.66-1.25) mg/dL Est GFR (CKD-EPI)AfAm (>60 ml/min/1.73 sqM) Est GFR (CKD-EPI)NonAf (>60 ml/min/1.73 sqM) Glucose (74-99) mg/dL Calcium (8.4-10.2) mg/dL Magnesium (1.6-2.3) mg/dL Total Bilirubin (0.2-1.3) mg/dL AST (17-59) U/L ALT (21-72) U/L Alkaline Phosphatase (38-126) U/L Ammonia <9 (<30) umol/L Total Creatine Kinase (55-170) U/L CK-MB (CK-2) (0.0-2.4) ng/mL CK-MB (CK-2) Rel Index Troponin I (0.000-0.034) ng/mL Total Protein (6.3-8.2) g/dL Albumin (3.5-5.0) g/dL Amylase (30-110) U/L Lipase (23-300) U/L Serum Alcohol mg/dL - EKG Data -: EKG Interpreted by Me EKG shows normal: sinus rhythm (Sinus rhythm 99 CO interval 182 QRS duration 106 QT since QTC of 360/472 left exodeviation incomplete right bundle-branch block nonspecific septal changes this is compared with an EKG dated 07/20/17) - Radiology Data Radiology results: report reviewed (I did review the imaging and reports no definite acute findings. No evidence of PE at this time though was a poor study ), image reviewed Disposition Clinical Impression: Non-ST elevation myocardial infarction (NSTEMI), Fall, Facial abrasion, Wound, open, foot Disposition: ADMITTED IP TO THIS HOSP Condition: Stable Referrals: Isabelle Fuentes MD [Primary Care Provider] - 1-2 days
[2018-01-07 10:28] LABS: Anisocytosis Slight; Basophils % (A) 0 %; Eosinophils # (A) 0.1 k/uL (0-0.7); Eosinophils % (A) 1 %; HCT 34.5 % (39.0-53.0); HGB 10.9 gm/dL (13.0-17.5); Hypochromasia Slight; Lymphocytes # (A) 0.4 k/uL (1.0-4.8); Lymphocytes % (A) 2 %; MCH 27.7 pg (25.0-35.0); MCHC 31.7 g/dL (31.0-37.0); MCV 87.5 fL (80.0-100.0); Mean Platelet Volume 7.7; Monocytes # (A) 0.3 k/uL (0-1.0); Monocytes % (A) 2 %; Neutrophils # (A) 17.9 k/uL (1.3-7.7); Neutrophils % (A) 95 %; Platelet Count 487 k/uL (150-450); RBC 3.95 m/uL (4.30-5.90); WBC 18.8 k/uL (3.8-10.6)
[2018-01-07 10:37] LABS: INR 1.2 (<1.2)
[2018-01-07 10:38] LABS: Partial Thromboplastin Time 25.1 sec (22.0-30.0); Prothrombin Time 11.6 sec (9.0-12.0)
[2018-01-07 10:41] LABS: ALT 23 U/L (21-72); AST 35 U/L (17-59); Albumin 2.2 g/dL (3.5-5.0); Alcohol <10 mg/dL; Alkaline Phosphatase 67 U/L (38-126); Amylase <30 U/L (30-110); Anion Gap 13 mmol/L; Blood Urea Nitrogen 26 mg/dL (9-20); Calcium 11.5 mg/dL (8.4-10.2); Carbon Dioxide 23 mmol/L (22-30); Chloride 98 mmol/L (98-107); Glucose 97 mg/dL (74-99); Lipase <10 U/L (23-300); Magnesium 1.8 mg/dL (1.6-2.3); Potassium 5.2 mmol/L (3.5-5.1); Sodium 134 mmol/L (137-145); Total Bilirubin 0.5 mg/dL (0.2-1.3); Total Protein 4.7 g/dL (6.3-8.2)
--- NOTE | 2018-01-07 11:08 | XR ---
EXAMINATION TYPE: XR chest 2V DATE OF EXAM: 01/07/2018 COMPARISON: Chest x-ray July 20, 2017. HISTORY: Fall injury today with chest pain. Cough per order. TECHNIQUE: Frontal and lateral views of the chest are obtained. FINDINGS: Reticulonodular opacities and lower lungs remain present more prominent versus prior. Ther e is no focal air space opacity, pleural effusion, or pneumothorax seen. The cardiac silhouette size is within normal limits. Large bridging osteophytes in the dorsal spine are noted. IMPRESSION: Increasing bilateral reticulonodular basilar interstitial opacities raises concern for a typical infection if there is history of cough otherwise worsening interstitial changes need to be co nsidered. Consider pulmonary referral.
[2018-01-07 11:10] LABS: Creatine Kinase MB 7.1 ng/mL (0.0-2.4)
--- NOTE | 2018-01-07 11:10 | XR ---
EXAMINATION TYPE: XR foot complete RT DATE OF EXAM: 01/07/2018 CLINICAL HISTORY: Nonhealing wound plantar surface of foot. TECHNIQUE: Frontal, lateral, and oblique images of the right foot are obtained. COMPARISON: None FINDINGS: Pes planus deformity is seen. There is marked flexion or hammertoe appearance in the toes l imiting evaluation at this level. There is curvilinear lucency along plantar surface midfoot level li oswald reflecting known ulcer. No acute fracture or dislocation is evident. No suspicious cortical dest ruction or periosteal reaction is seen. There is narrowing of the talonavicular joint. There are subc hondral cystic change and irregularity with narrowing of distal navicular bone articulation with medi al and middle cuneiforms. There is moderate size inferior calcaneal spur. There is some calcification along deep aspect of the proximal plantar fascia. IMPRESSION: There is no convincing radiographic evidence for acute osteomyelitis.
--- NOTE | 2018-01-07 11:11 | CT ---
EXAMINATION TYPE: CT facial bones wo con DATE OF EXAM: 01/07/2018 COMPARISON: NONE HISTORY: Fall, facial abrasions to nose and forehead CT DLP: 633.0 mGycm Automated exposure control for dose reduction was used. TECHNIQUE: CT scan of the sinuses is performed without contrast, axial images are obtained, coronal r eformatted images are also reviewed. FINDINGS: Bilateral paige bullosa noted and there is some mucosal thickening results in occlusion of the ostiomeatal complex bilaterally. Mucosal thickening is localized. No air-fluid levels. Osseous structures intact. Intracranial and intraorbital structures are symmetric. Nasal septal deviation noted. IMPRESSION: No acute fracture identified..
--- NOTE | 2018-01-07 11:12 | CT ---
EXAMINATION TYPE: CT brain karl wo con DATE OF EXAM: 01/07/2018 COMPARISON: NONE HISTORY: 72-year-old male Fall, facial abrasions to nose and forehead CT DLP: 1629.66 mGycm Automated exposure control for dose reduction was used. Technique: Examination of the head was done in axial plane without intravenous contrast. Coronal and sagittal reconstructions performed. CT of the cervical spine was obtained in axial plane without intravenous injection of contrast mater ial. Coronal and sagittal reformatted images were obtained from the axial views for evaluation of f ractures, spinal alignment and canal. FINDINGS: Head: There is no evidence of acute intracranial hemorrhage, acute ischemic changes, mass, mass-effect, or extra-axial fluid collection. There is no effacement of cerebral sulci or basal subarachnoid cister ns. There is no hydrocephalus. There is no midline shift. De Jesus-white matter distinction is preserv ed. Incidental empty sella. Mild scalp swelling anteriorly. Mild generalized supratentorial volume loss and patchy periventricula r white matter hypodensities redemonstrated. Old lacunar infarcts right basal ganglia. Mastoid air cells well pneumatized. No calvarial fracture. Cervical spine: Chronic ununited fracture left clavicular shaft. There is bridging syndesmophytes along the cervical spine with some fusion of the facet joints as wel l. Preserved alignment of the cervical spine. No craniocervical junction abnormality, predental space wi dening, or prevertebral soft tissue swelling. Assessment of the spinal canal from C6-C7 and below is limited due to artifact from the patient's karen ulders. No acute fracture identified. Focus of heterotopic ossification posterior midline soft tissues at the C4-C5 level. Sagittal and coronal reformatted images confirm above findings. COMBINED IMPRESSION: 1. Mild anterior scalp contusions. No acute intracranial abnormality seen. Stable mild changes of chr onic small vessel ischemic disease. 2. No acute fracture or malalignment of the cervical spine. Bridging syndesmophytes and fusion of the facet joints could be secondary to prolific changes of DISH or an inflammatory spondyloarthropathy. Clinically correlate. 3. Facial bones reported separately. 4. Chronic ununited fracture left clavicular shaft.
[2018-01-07] MEDS ORDERED: SODIUM CHLORIDE 0.9% 1,000 ML IV STA (11:58)
[2018-01-07] MEDS ORDERED: RX INFO: IV CONTRAST WAS GIVEN 1 EACH MISC MISCELLANE PRN (11:59)
--- NOTE | 2018-01-07 12:57 | CT ---
EXAMINATION TYPE: CT angio chest DATE OF EXAM: 01/07/2018 COMPARISON: NONE HISTORY: 72-year-old male with pain, Elevated D-dimer TECHNIQUE: Contiguous axial scanning of the chest performed with IV Contrast, patient injected with 1 00 mL of Isovue 370. Coronal/sagittal MIP reconstructions performed. CT DLP: 335.6 mGycm Automated exposure control for dose reduction was used. FINDINGS: There is mild diffuse anasarca-type change. Heart normal size without pericardial effusion. Prominent coronary vessel calcifications are present and are unremarkable for coronary artery disease. Aorta normal caliber with mild atherosclerotic arch calcifications. There appears to be occlusion of the left common carotid artery at its origin. Variant direct takeoff of the left vertebral artery dir ectly from the aortic arch. While there is satisfactory opacification of the pulmonary arterial system, there is excessive respir atory motion artifacts. No pulmonary embolus seen in the upper to mid lungs. Assessment of many of th e segmental and subsegmental branches of the lower lungs is nondiagnostic due to the degree of motion artifacts and resulting vascular heterogeneity. Prominent 9 mm precarinal lymph node. Mildly enlarged 1.9 cm subcarinal lymph node. Mild bilateral gynecomastia, right greater than left There is diffuse interstitial thickening with septal lines and background of mild centrilobular emphy sema. Patchy and confluent groundglass is present in the lower lobes with a more dependent location. Visualized upper abdomen shows a 3.7 cm cyst of the right kidney and a tiny hiatal hernia. Bones: Degenerative changes at the right sternoclavicular joint. Chronic ununited left clavicular shaft fracture partially visualized. Bony ankylosis throughout the s pine including the posterior elements. IMPRESSION: 1. BACKGROUND OF COPD WITH MILD EMPHYSEMA. 2. DIFFUSE SEPTAL THICKENING WITH CENTRAL INTERSTITIAL OPACITIES AND PATCHY CONFLUENT GROUNDGLASS DEP ENDENTLY IN THE LOWER LUNGS. GIVEN MILD DIFFUSE ANASARCA, CORRELATE FOR PULMONARY EDEMA. HOWEVER, THE RE ARE NO PLEURAL EFFUSIONS OR SIGNIFICANT CARDIOMEGALY. ASPIRATION PNEUMONITIS AND ATYPICAL INFECTIO NS ARE ADDITIONAL POSSIBILITIES. CLINICAL CORRELATION RECOMMENDED. 3. LIMITED ASSESSMENT FOR PULMONARY EMBOLUS IN THE LOWER LUNGS DUE TO BREATHING ARTIFACTS. NO PULMONA RY EMBOLUS IN THE UPPER TO MID LUNGS. 4. QUERY A HISTORY OF ANKYLOSING SPONDYLITIS IN THIS PATIENT.
[2018-01-07] MEDS ORDERED: NITROGLYCERIN SL TABS 0.4 MG TAB SUBLINGUAL PRN (15:05)
[2018-01-07] MEDS ORDERED: HEPARIN SODIUM,PORCINE 5,000 UNIT/ML 1 ML VIAL IV ONE (15:05)
[2018-01-07] MEDS ORDERED: SODIUM CHLORIDE 0.9% 1,000 ML IV SCH (15:15)
[2018-01-07] MEDS ORDERED: HEPARIN SOD,PORK IN 0.45% NACL 25,000 UNIT in 0.45% NACL 1 500ML.BAG IV SCH (15:15)
--- NOTE | 2018-01-07 16:30 | P.HPIM ---
History of Present Illness 72-year-old gentleman came in because generalized weakness and fall today morning patient fell last with generalized weakness. Patient was having symptoms consistent with gastroesophageal reflux disease for a while for about a week. Patient has mildly elevated troponin with a new onset right bundle branch block along with some nonspecific ST-T wave changes involving the septal leads. Patient was also comparing of shortness of breath crushable orthopnea and denied any PND patient fell and the had the an injury to the natural Bridge. Patient does have increased erythema in bilateral lower limbs more so in the right lower limb. Patient has an ulcer on the plantar surface of the right foot stage III or 4 being taken care of by Dr. Dixon which doesn't appear to be infected at this time patient doesn't have any cellulitis at this time. Patient does have elevated JVD patient is evaluated the d-dimer because of which CAT scan of the chest was obtained which was showing significant nonspecific inflammatory infiltrate cotton-wool appearance in bilateral lung malone probability of pulmonary edema. Patient doesn't have any history of history of heart failure in the past does have history of coronary artery disease in the past follows up with Dr. Lott as an outpatient. Patient denied any significant chest pain Review of Systems REVIEW OF SYSTEMS: CONSTITUTIONAL: No fever, no malaise, no fatigue. HEENT: No recent visual problems or hearing problems. Denied any sore throat. CARDIOVASCULAR: No chest pain, orthopnea, PND, no palpitations, no syncope. PULMONARY: No shortness of breath, no cough, no hemoptysis. GASTROINTESTINAL: No diarrhea, no nausea, no vomiting, no abdominal pain. Normoactive bowel sounds. NEUROLOGICAL: No headaches, no weakness, no numbness. HEMATOLOGICAL: Denies any bleeding or petechiae. GENITOURINARY: Denies any burning micturition, frequency, or urgency. MUSCULOSKELETAL/RHEUMATOLOGICAL: Denies any joint pain, swelling, or any muscle pain. ENDOCRINE: Denies any polyuria or polydipsia. The rest of the 14-point review of systems is negative. Past Medical History Past Medical History: Asthma, COPD, Diabetes Mellitus, Eye Disorder, GERD/Reflux , Hyperlipidemia, Hypertension, Myocardial Infarction (SC), Osteoarthritis (OA) , Pneumonia, Thyroid Disorder, Vascular Disorder Additional Past Medical History / Comment(s): MACULAR DEGENERATION, PVD. hx heart murmur,diverticulosis, carotid stenosis Last Myocardial Infarction Date:: 1996? History of Any Multi-Drug Resistant Organisms: None Reported Past Surgical History: Orthopedic Surgery Additional Past Surgical History / Comment(s): AAN AORTAGRAM WITH ANA STENTS. , LEFT SHOULDER WITH HARDWARE ( HARDWARE REMOVED) , LEFT KNEE ligament repair. colonocopy , FASCIOTOMY OF RIGHT CALF egd w/bx. Past Anesthesia/Blood Transfusion Reactions: No Reported Reaction Past Psychological History: No Psychological Hx Reported Smoking Status: Former smoker Past Alcohol Use History: None Reported Past Drug Use History: None Reported - Past Family History Sister(s) Family Medical History: Cancer Additional Family Medical History / Comment(s): Lung Cancer Mother Family Medical History: No Reported History Additional Family Medical History / Comment(s): from "natural causes" Father Family Medical History: Coronary Artery Disease (CAD), Diabetes Mellitus Medications and Allergies Home Medications Medication Instructions Recorded Confirmed Type Clopidogrel [Plavix] 75 mg PO DAILY 06/22/15 01/07/18 History Fosinopril [Monopril] 20 mg PO QAM 06/22/15 01/07/18 History Simvastatin [Zocor] 20 mg PO HS 06/22/15 01/07/18 History Fosinopril [Monopril] 10 mg PO HS 05/13/17 01/07/18 History Levothyroxine Sodium 25 mcg PO DAILY 05/13/17 01/07/18 History Loratadine [Claritin] 10 mg PO DAILY 05/13/17 01/07/18 History Hydrochlorothiazide [Hydrodiuril] 25 mg PO DAILY 07/20/17 01/07/18 History metFORMIN HCL 1,000 mg PO BID 08/07/17 01/07/18 History Aspirin EC [Ecotrin Low Dose] 81 mg PO DAILY #30 tablet.dr 09/05/17 01/07/18 Rx Fluticasone/Salmeterol [Advair 1 puff INHALATION RT-BID 12/18/17 01/07/18 History 100-50 Diskus] Omeprazole [PriLOSEC] 20 mg PO AC-BID 12/18/17 01/07/18 History Allergies Allergy/AdvReac Type Severity Reaction Status Date / Time No Known Allergies Allergy Verified 01/07/18 10:48 Physical Exam Vitals: Vital Signs Temp Pulse Resp BP Pulse Ox 01/07/18 16:00 98.5 F 86 18 109/55 95 04/12/18 13:47 87 19 110/56 96 01/07/18 11:59 94 17 103/59 97 01/07/18 09:56 97.7 F 101 H 18 104/55 95 Intake and Output 01/07/18 01/07/18 01/07/18 06:59 14:59 22:59 Other: Weight 61.235 kg PHYSICAL EXAMINATION: GENERAL: The patient is alert and oriented x3, not in any acute distress. Well developed, well nourished. HEENT: Pupils are round and equally reacting to light. EOMI. No scleral icterus. No conjunctival pallor. Normocephalic, atraumatic. No pharyngeal erythema. No thyromegaly. Patient has a broken nasal bridge CARDIOVASCULAR: S1 and S2 present. No murmurs, rubs, or gallops. A bit of elevated JVD PULMONARY: Chest is clear to auscultation, no wheezing or crackles. ABDOMEN: Soft, nontender, nondistended, normoactive bowel sounds. No palpable organomegaly. MUSCULOSKELETAL: No joint swelling or deformity. EXTREMITIES: No cyanosis, clubbing, or pedal edema. NEUROLOGICAL: Gross neurological examination did not reveal any focal deficits. SKIN: A small circumferential ulcer on the plantar surface of the right foot and another ulcer with increasing swelling bilateral lower limbs most on the right leg Results CBC & Chem 7: 01/07/18 10:12 01/07/18 10:12 Labs: Abnormal Lab Results - Last 24 Hours (Table) 01/07/18 01/07/18 01/07/18 Range/Units 10:12 10:12 10:12 WBC (3.8-10.6) k/uL RBC (4.30-5.90) m/uL Hgb (13.0-17.5) gm/dL Hct (39.0-53.0) % RDW (11.5-15.5) % Plt Count (150-450) k/uL Neutrophils # (1.3-7.7) k/uL Lymphocytes # (1.0-4.8) k/uL INR 1.2 H (<1.2) D-Dimer (<0.60) mg/L FEU Sodium 134 L (137-145) mmol/L Potassium 5.2 H (3.5-5.1) mmol/L BUN 26 H (9-20) mg/dL Calcium 11.5 H (8.4-10.2) mg/dL Total Creatine Kinase 420 H (55-170) U/L CK-MB (CK-2) 7.1 H* (0.0-2.4) ng/mL Troponin I (0.000-0.034) ng/mL Total Protein 4.7 L (6.3-8.2) g/dL Albumin 2.2 L (3.5-5.0) g/dL Amylase <30 L (30-110) U/L Lipase <10 L (23-300) U/L 01/07/18 01/07/18 01/07/18 Range/Units 10:12 10:12 10:12 WBC 18.8 H (3.8-10.6) k/uL RBC 3.95 L (4.30-5.90) m/uL Hgb 10.9 L (13.0-17.5) gm/dL Hct 34.5 L (39.0-53.0) % RDW 18.0 H (11.5-15.5) % Plt Count 487 H (150-450) k/uL Neutrophils # 17.9 H (1.3-7.7) k/uL Lymphocytes # 0.4 L (1.0-4.8) k/uL INR (<1.2) D-Dimer 2.90 H (<0.60) mg/L FEU Sodium (137-145) mmol/L Potassium (3.5-5.1) mmol/L BUN (9-20) mg/dL Calcium (8.4-10.2) mg/dL Total Creatine Kinase (55-170) U/L CK-MB (CK-2) (0.0-2.4) ng/mL Troponin I 0.121 H* (0.000-0.034) ng/mL Total Protein (6.3-8.2) g/dL Albumin (3.5-5.0) g/dL Amylase (30-110) U/L Lipase (23-300) U/L Assessment and Plan Plan: -Generalized weakness and fall: May be secondary to myocardial infarction. -Possible non-ST elevation myocardial infarction with mildly elevated troponin and patient was started on heparin and cardiology will be consulted. -Possible congestive heart failure possibility of acute systolic dysfunction: Patient was started on Lasix IV fluids will be discontinued and hydrochlorothiazide will be discontinued echocardiogram will be obtained. Cardiology was consulted as mentioned above probably related to a recent myocardial infarction. -Gastroesophageal reflux disease: Patient was started on Patient's symptoms of acid reflux may be related to RCA area infarct area -Hyponatremia probably secondary to hydrochlorothiazide which will be discontinued Hyperkalemia secondary to secondary to ZACHARY inhibitor which will be held -Leukocytosis probably reactive my suspicion for pneumonia is low -Elevated d-dimer increased swelling in the left right lower limb because of which patient will obtain a Doppler of the right lower extremity -Ulcerations of the right sole of the right foot with Dr. Dixon will be consulted cultures will be obtained from that area.
[2018-01-07 17:19] LABS: Creatine Kinase MB 9.6 ng/mL (0.0-2.4); Troponin I 0.472 ng/mL (0.000-0.034)
--- NOTE | 2018-01-07 17:41 | US ---
EXAMINATION TYPE: US venous doppler duplex LE RT DATE OF EXAM: 01/07/2018 4:25 PM COMPARISON: NONE CLINICAL HISTORY: r/o DVT. Edema right leg SIDE PERFORMED: right TECHNIQUE: The lower extremity deep venous system is examined utilizing real time linear array sonog heri with graded compression, doppler sonography and color-flow sonography. VESSELS IMAGED: External Iliac Vein (EIV) Common Femoral Vein Deep Femoral Vein Greater Saphenous Vein * Femoral Vein Popliteal Vein Small Saphenous Vein * Proximal Calf Veins (* superficial vessels) Right Leg: No evidence of acute DVT as visualized IMPRESSION: Negative exam. No sign of deep venous thrombosis in the right leg.
[2018-01-07 18:08] LABS: Glucose,Whole Blood 91 mg/dL (75-99)
[2018-01-07] MEDS: INSULIN ASPART 100 UNIT/ML 1 ML 10 ML VIAL SQ SCH ×2 (18:08→21:48)
[2018-01-07] MEDS: PANTOPRAZOLE 40 MG TABLET PO SCH (18:10)
[2018-01-07 21:00] LABS: Glucose,Whole Blood 74 mg/dL (75-99)
[2018-01-07] MEDS ORDERED: LISINOPRIL 10 MG TAB PO SCH (21:00)
[2018-01-07] MEDS: SYMBICORT 80-4.5 MCG INHALER INHALATION SCH (21:05)
[2018-01-07] MEDS: FUROSEMIDE 10 MG/ML 4 ML VIAL IV SCH (21:49)
[2018-01-07] MEDS: ATORVASTATIN 10 MG TAB PO SCH (21:49)
[2018-01-07 23:06] LABS: Creatine Kinase MB 9.9 ng/mL (0.0-2.4); Troponin I 0.387 ng/mL (0.000-0.034)
[2018-01-08 06:00] LABS: Glucose,Whole Blood 69 mg/dL (75-99)
[2018-01-08 06:14] LABS: Glucose,Whole Blood 75 mg/dL (75-99)
[2018-01-08] MEDS: INSULIN ASPART 100 UNIT/ML 1 ML 10 ML VIAL SQ SCH ×4 (06:35→20:55)
[2018-01-08] MEDS: LEVOTHYROXINE 25 MCG TAB PO SCH (06:36)
[2018-01-08] MEDS: PANTOPRAZOLE 40 MG TABLET PO SCH ×2 (06:36→17:19)
[2018-01-08 06:52] LABS: Anisocytosis Slight; HCT 31.5 % (39.0-53.0); HGB 10.5 gm/dL (13.0-17.5); MCH 28.6 pg (25.0-35.0); MCHC 33.4 g/dL (31.0-37.0); MCV 85.8 fL (80.0-100.0); Mean Platelet Volume 7.4; Platelet Count 403 k/uL (150-450); RBC 3.67 m/uL (4.30-5.90); RDW 17.7 % (11.5-15.5); WBC 9.2 k/uL (3.8-10.6)
[2018-01-08] MEDS ORDERED: metFORMIN 500 MG TAB PO SCH (07:30)
--- NOTE | 2018-01-08 08:31 | P.PN ---
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 He was in his usual state of health until about a few weeks ago and he started feeling progressively weak until yesterday when he was at home and he tried to stand up and walk when he fell on the floor. He does not recall if he lost his consciousness. Does not recall having any chest pain or chest discomfort or shortness of breath more than his baseline shortness of breath. Does not recall having any dizziness or lightheadedness around the episode as well. His was at home but she was not at the same room according to him. The called ambulance and the patient was brought to the hospital by ambulance. Since he was admitted to the hospital he has been pain-free. The EKG showed sinus rhythm with intraventricular conduction delay and left anterior fascicular block. The cardiac enzymes were checked and the troponin came in to be slightly abnormal. The BNP came in to be around 1000. 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 The patient does not have any documented history of coronary artery disease in the past. But he does have multiple coronary artery disease equivalent including the peripheral arterial disease, carotid artery disease, as well as diabetes. Having said that with the abnormal troponin I am quite concerned about severe underlying coronary artery disease. I recommended proceeding with a heart catheterization. Meanwhile, I will continue the current medical treatment which included dual antiplatelet therapy as well as statin. He is also on heparin IV and we will continue that. I would also obtain an echocardiogram was Doppler. He was started on Lasix IV for a component of congestive heart failure and we will continue that as well was continuous monitoring the kidney function. Objective - Vital Signs Vital signs: Vital Signs Temp 97 F L 01/08/18 08:00 Pulse 78 01/08/18 08:00 Resp 18 01/08/18 08:00 BP 111/55 01/08/18 08:00 Pulse Ox 94 L 01/08/18 08:00 Intake & Output 01/07/18 01/08/18 01/08/18 18:59 06:59 18:59 Intake Total 800 241.269 Output Total 2800 Balance 800 -2558.731 Weight 61.235 kg 63.2 kg Intake: Intake, IV Titration 800 141.269 Amount Heparin Sod,Pork in 0.45% 141.269 NaCl 25,000 unit In 0.45 % NaCl 1 500ml.bag @ 12 UNITS/KG/HR 14.69 mls/hr IV .Q24H [facility] Rx#: [id number] Sodium Chloride 0.9% 1, 800 000 ml @ 100 mls/hr IV . Q10H [facility] Rx#:[id number] Oral 100 Output: Urine 2800 - Constitutional General appearance: Present: no acute distress - Respiratory Respiratory: bilateral: diminished - Cardiovascular Rhythm: regular Heart sounds: normal: S1, S2 Abnormal Heart Sounds: Present: other (Distant heart sounds) - Labs CBC & Chem 7: 01/08/18 05:44 01/07/18 10:12 Labs: Abnormal Lab Results - Last 24 Hours (Table) 01/07/18 01/07/18 01/07/18 Range/Units 10:12 10:12 10:12 WBC (3.8-10.6) k/uL RBC (4.30-5.90) m/uL Hgb (13.0-17.5) gm/dL Hct (39.0-53.0) % RDW (11.5-15.5) % Plt Count (150-450) k/uL Neutrophils # (1.3-7.7) k/uL Lymphocytes # (1.0-4.8) k/uL INR 1.2 H (<1.2) APTT (22.0-30.0) sec D-Dimer (<0.60) mg/L FEU Sodium 134 L (137-145) mmol/L Potassium 5.2 H (3.5-5.1) mmol/L BUN 26 H (9-20) mg/dL POC Glucose (mg/dL) (75-99) mg/dL Calcium 11.5 H (8.4-10.2) mg/dL Total Creatine Kinase 420 H (55-170) U/L CK-MB (CK-2) 7.1 H* (0.0-2.4) ng/mL Troponin I (0.000-0.034) ng/mL Total Protein 4.7 L (6.3-8.2) g/dL Albumin 2.2 L (3.5-5.0) g/dL Amylase <30 L (30-110) U/L Lipase <10 L (23-300) U/L 01/07/18 01/07/18 01/07/18 Range/Units 10:12 10:12 10:12 WBC 18.8 H (3.8-10.6) k/uL RBC 3.95 L (4.30-5.90) m/uL Hgb 10.9 L (13.0-17.5) gm/dL Hct 34.5 L (39.0-53.0) % RDW 18.0 H (11.5-15.5) % Plt Count 487 H (150-450) k/uL Neutrophils # 17.9 H (1.3-7.7) k/uL Lymphocytes # 0.4 L (1.0-4.8) k/uL INR (<1.2) APTT (22.0-30.0) sec D-Dimer 2.90 H (<0.60) mg/L FEU Sodium (137-145) mmol/L Potassium (3.5-5.1) mmol/L BUN (9-20) mg/dL POC Glucose (mg/dL) (75-99) mg/dL Calcium (8.4-10.2) mg/dL Total Creatine Kinase (55-170) U/L CK-MB (CK-2) (0.0-2.4) ng/mL Troponin I 0.121 H* (0.000-0.034) ng/mL Total Protein (6.3-8.2) g/dL Albumin (3.5-5.0) g/dL Amylase (30-110) U/L Lipase (23-300) U/L 01/07/18 01/07/18 01/07/18 Range/Units 16:24 20:59 22:07 WBC (3.8-10.6) k/uL RBC (4.30-5.90) m/uL Hgb (13.0-17.5) gm/dL Hct (39.0-53.0) % RDW (11.5-15.5) % Plt Count (150-450) k/uL Neutrophils # (1.3-7.7) k/uL Lymphocytes # (1.0-4.8) k/uL INR (<1.2) APTT (22.0-30.0) sec D-Dimer (<0.60) mg/L FEU Sodium (137-145) mmol/L Potassium (3.5-5.1) mmol/L BUN (9-20) mg/dL POC Glucose (mg/dL) 74 L (75-99) mg/dL Calcium (8.4-10.2) mg/dL Total Creatine Kinase 739 H 737 H (55-170) U/L CK-MB (CK-2) 9.6 H* 9.9 H* (0.0-2.4) ng/mL Troponin I 0.472 H* 0.387 H* (0.000-0.034) ng/mL Total Protein (6.3-8.2) g/dL Albumin (3.5-5.0) g/dL Amylase (30-110) U/L Lipase (23-300) U/L 01/07/18 01/08/18 01/08/18 Range/Units 22:07 05:44 05:59 WBC (3.8-10.6) k/uL RBC 3.67 L (4.30-5.90) m/uL Hgb 10.5 L (13.0-17.5) gm/dL Hct 31.5 L (39.0-53.0) % RDW 17.7 H (11.5-15.5) % Plt Count (150-450) k/uL Neutrophils # (1.3-7.7) k/uL Lymphocytes # (1.0-4.8) k/uL INR (<1.2) APTT 31.9 H (22.0-30.0) sec D-Dimer (<0.60) mg/L FEU Sodium (137-145) mmol/L Potassium (3.5-5.1) mmol/L BUN (9-20) mg/dL POC Glucose (mg/dL) 69 L (75-99) mg/dL Calcium (8.4-10.2) mg/dL Total Creatine Kinase (55-170) U/L CK-MB (CK-2) (0.0-2.4) ng/mL Troponin I (0.000-0.034) ng/mL Total Protein (6.3-8.2) g/dL Albumin (3.5-5.0) g/dL Amylase (30-110) U/L Lipase (23-300) U/L Assessment and Plan Assessment: Assessment #1 mildly abnormal cardiac enzymes #2 status post fall with or without syncope #3 peripheral arterial disease as described above #4 carotid artery disease as described above as well #5 multiple risk factors for CAD including diabetes, hypertension, dyslipidemia #6 evidence of critical limb ischemia with nonhealing ulcer involving the right toe Plan #1 continue the current medical treatment including dual antiplatelet therapy and statin #2 continue IV Lasix with monitor the kidney function and electrolyte #3 obtain an echocardiogram with Doppler #4 I recommended proceeding with a heart catheterization to rule out any severe underlying CAD #5 follow-up with the patient. Thank you for allowing us but spitting his care and we'll continue following up with the patient
[2018-01-08 08:47] LABS: Anion Gap 10 mmol/L; Blood Urea Nitrogen 21 mg/dL (9-20); Calcium 10.1 mg/dL (8.4-10.2); Carbon Dioxide 27 mmol/L (22-30); Chloride 102 mmol/L (98-107); Cholesterol 72 mg/dL (<200); Glucose 54 mg/dL (74-99); HDL Cholesterol 20 mg/dL (40-60); LDL Cholesterol,Calculated 26 mg/dL (0-99); Magnesium 2.1 mg/dL (1.6-2.3); Potassium 4.3 mmol/L (3.5-5.1); Sodium 139 mmol/L (137-145); Triglycerides 128 mg/dL (<150)
[2018-01-08] MEDS ORDERED: LORATADINE 10 MG TAB PO SCH (09:00)
[2018-01-08] MEDS ORDERED: LISINOPRIL 20 MG TAB PO SCH (09:00)
[2018-01-08] MEDS ORDERED: HYDROCHLOROTHIAZIDE 25 MG TAB PO SCH (09:00)
[2018-01-08] MEDS: FUROSEMIDE 10 MG/ML 4 ML VIAL IV SCH ×2 (09:07→20:39)
[2018-01-08] MEDS: ASPIRIN 325 MG TAB PO SCH (09:16)
[2018-01-08] MEDS: CLOPIDOGREL 75 MG TAB PO SCH (09:16)
[2018-01-08 10:18] LABS: Appearance,Urine Clear (Clear); Bilirubin,Urine Negative (Negative); Blood,Urine Negative (Negative); Color,Urine Yellow; Glucose,Urine (UA) Negative (Negative); Ketones,Urine Negative (Negative); Leukocyte Esterase,Urine Negative (Negative); Nitrite,Urine Negative (Negative); Protein,Urine Negative (Negative); Specific Gravity,Urine 1.014 (1.001-1.035); Urobilinogen,Urine <2.0 mg/dL (<2.0)
[2018-01-08] MEDS: SYMBICORT 80-4.5 MCG INHALER INHALATION SCH ×2 (11:07→19:36)
[2018-01-08 11:32] VITALS: BMI 23.1
[2018-01-08 12:08] LABS: Glucose,Whole Blood 78 mg/dL (75-99)
[2018-01-08] MEDS ORDERED: DEXTROSE 50%-WATER 50 ML SYRINGE IVP ONE (12:10)
[2018-01-08] MEDS ORDERED: IV FLUID CONTINUATION 1,000 ML IV ONE (12:45)
[2018-01-08] MEDS ORDERED: LIDOCAINE 2% INJ 20 MG/ML (20 ML MDV) ONE (12:55)
[2018-01-08] MEDS ORDERED: MIDAZOLAM 2 MG/2 ML VIAL ONE (12:55)
[2018-01-08] MEDS ORDERED: VERAPAMIL 2.5 MG/ML 2 ML AMP ONE (13:04)
[2018-01-08] MEDS ORDERED: MIDAZOLAM 2 MG/2 ML VIAL IV ONE (13:12)
[2018-01-08] MEDS ORDERED: LIDOCAINE 2% INJ 20 MG/ML SQ ONE (13:14)
[2018-01-08] MEDS ORDERED: RX INFO: IV CONTRAST WAS GIVEN 1 EACH MISC MISCELLANE PRN (13:33)
[2018-01-08] MEDS ORDERED: SODIUM CHLORIDE 0.9% 1,000 ML IV SCH (13:45)
[2018-01-08] MEDS ORDERED: IOPAMIDOL-370 100ML BTL INJ ONE (13:46)
--- NOTE | 2018-01-08 13:55 | LTR ---
January 08, 2018 Re: Cirilo Leung Dear Dr. Fuentes: Mr. Cirilo Leung was admitted to [facility] with syncope. His cardiac enzymes were checked and came in to be slightly abnormal. In view of that, I recommended proceeding with a heart catheterization. Mr. Leung underwent a heart catheterization and that revealed intermediate disease only involving the right coronary artery without any high-grade stenosis. I want to thank you for allowing me to participate in his care and please do not hesitate to call if you have any question or concern. Sincerely, MD TAQUERIA Brown / NOMI: [id number] /
--- NOTE | 2018-01-08 13:58 | CC ---
CARDIAC CATHETERIZATION REPORT DATE OF SERVICE: January 07, 2018 PERFORMING PHYSICIAN: Ibrahima Lott MD, Clothes Separator. PROCEDURE PERFORMED: 1. Selective right and left coronary angiogram. 2. Left heart catheterization. INDICATION: This is a pleasant 72-year-old gentleman with known peripheral arterial disease and carotid artery disease as well as multiple risk factors for coronary artery disease, was admitted to the hospital with syncope. He was ruled in for acute non ST-elevation myocardial infarction. In view of that, a heart catheterization was recommended. APPROACH: Right common femoral artery. COMPLICATION: None. LEVEL OF SEDATION: Moderate with sedation length of 16 minutes. PROCEDURE DESCRIPTION: After obtaining an informed consent, the patient was brought to the Cardiac Pipelines Supervisor. The right common femoral artery was cannulated using micropuncture technique and a micropuncture wire passed easily, then I placed a 6-Georgian sheath in the right common femoral artery. After that, I did selective right and left coronary angiogram using JR4 and and JL4 catheters. After that, I did left heart catheterization using 6-Georgian pigtail catheter. The procedure was completed without any complication. SELECTIVE CORONARY ANGIOGRAM: 1. The right coronary artery is a large caliber vessel, and it is a dominant vessel. The proximal RCA appeared to be angiographically normal. The mid RCA has mild disease only. The RCA distally has intermediate lesion in the range of 60%. The RCA distally bifurcates into PDA and PLV branches, both appeared to be angiographically normal. 2. The left main is angiographically normal. It bifurcates into left circumflex and left anterior descending artery. 3. The left circumflex is a large caliber vessel. It is a nondominant vessel. The proximal circ appeared to have mild disease only and gives rise into a large OM branch which appeared to have intermediate disease only. The left circumflex continues after that as a medium caliber vessel in the AV groove. 4. The LAD, the proximal LAD appeared to be angiographically normal and gives rise into a large OM branch which seems to be angiographically normal. The mid LAD and distal LAD are angiographically normal. HEMODYNAMICS: The left ventricular end-diastolic pressure was about 12 mmHg and no gradient was identified across the aortic valve. CONCLUSION: 1. Intermediate disease involving the distal right coronary artery. 2. Intermediate disease involving the left circumflex. 3. Normal left anterior descending artery. POSTPROCEDURE MANAGEMENT: Maximize medical treatment and follow up with the patient. MMODL / IJN: [id number] /
[2018-01-08 17:15] LABS: Glucose,Whole Blood 88 mg/dL (75-99)
[2018-01-08] MEDS: BACITRACIN/POLYMYX 500-10,000 UNIT/GM OINT 14 GM TUBE TOPICAL SCH (20:38)
[2018-01-08] MEDS: CIPROFLOXACIN HCL 500 MG TAB PO SCH (20:38)
[2018-01-08] MEDS: ATORVASTATIN 10 MG TAB PO SCH (20:38)
[2018-01-08 20:47] LABS: Glucose,Whole Blood 171 mg/dL (75-99)
--- NOTE | 2018-01-08 21:47 | P.CONS ---
History of Present Illness - Reason for Consult Consult date: 01/08/18 - Chief Complaint fall - History of Present Illness 72-year-old male presents to Hospital status post fall at home. He had apparently had a slip and fall in his bathroom, relates that he was on the tile a great difficulty trying to get up off the floor. Resulting in the injury to the bridge of his nose, his forehead is hands minimally into his bilateral lower extremities especially at the knees. He been recently seen in the office were without evidence of acute worsening of the right foot plantar ulceration. He had had some treatment for the left foot diabetic ulceration occluded antibiotic therapy. And was showing some improvement. However when he presented to the office there was a marked worsening of that ulceration and constantly he was started on antibiotic therapy and local wound care with medical when he was initiated. Patient now presents to hospital with falls, significant weakness dehydration and chest pain. There was concerns to a non- ST elevated myocardial infarction, he has been seen by cardiology and taken to the cardiac catheterization lab today without evidence of some disease of his right coronary artery but nothing was severe enough to require stenting. The patient is currently status post the cardiac catheterization. Most significant difference from the last evaluation as the patient is confused. He does have a soft restraint system in place that goes across his abdomen to try to keep him in the bed. Apparently that had difficulty with him since the procedure. The patient would like to take a shower, being that he is just his cardiac catheterization he is instructed that would not be possible for the night. Review of Systems Constitutional: Reports weight loss, Denies chills, Denies fever, Denies weakness Eyes: left discharge (clear), denies blurred vision, denies decreased vision, denies pain, denies loss of vision Ears, nose, mouth and throat: Denies headache, Denies mouth pain, Denies sore throat Cardiovascular: Denies chest pain, Denies edema, Denies leg edema, Denies lightheadedness, Denies shortness of breath, Denies syncope Respiratory: Denies cough, Denies cough with sputum, Denies dyspnea, Denies excessive sputum, Denies hemoptysis, Denies home oxygen Gastrointestinal: Denies abdominal pain, Denies diarrhea, Denies nausea, Denies vomiting Genitourinary: Denies dysuria Musculoskeletal: Denies myalgias Integumentary: Has had recent multiple difficulties with the skin including the testicular infection and the diabetic foot infection which seems to be worse and now has the multiple abrasions from his fall Neurological: Denies numbness, has hasn't been weakness and fall as per the HPI Psychiatric: Denies anxiety, Denies depression Endocrine: Reports fatigue and weight loss Past Medical History Past Medical History: Asthma, COPD, Diabetes Mellitus, Eye Disorder, GERD/Reflux , Hyperlipidemia, Hypertension, Myocardial Infarction (GA), Osteoarthritis (OA) , Pneumonia, Thyroid Disorder, Vascular Disorder Additional Past Medical History / Comment(s): per - pt's general overall health /abilty has been deteriorating last few weeks. getting very foregetfull, weak, falls.MACULAR DEGENERATION lt eye, PVD. hx heart murmur,diverticulosis, carotid stenosis, rt foot ulcer, anemia-sees dr castillo, past lt eye/orbital cellulitis and rt hand cellulitis. hiatal hernia.neuropaathy hands/feet. Last Myocardial Infarction Date:: 1996? History of Any Multi-Drug Resistant Organisms: None Reported Past Surgical History: Orthopedic Surgery Additional Past Surgical History / Comment(s): NAA AORTAGRAM WITH ANA STENTS. , LEFT SHOULDER WITH HARDWARE ( HARDWARE REMOVED) , LEFT KNEE ligament repair. colonocopy , FASCIOTOMY OF RIGHT CALF egd w/bx. Past Anesthesia/Blood Transfusion Reactions: No Reported Reaction Smoking Status: Former smoker - Past Family History Sister(s) Family Medical History: Cancer Additional Family Medical History / Comment(s): Lung Cancer Mother Family Medical History: No Reported History Additional Family Medical History / Comment(s): from "natural causes" Father Family Medical History: Coronary Artery Disease (CAD), Diabetes Mellitus, Myocardial Infarction (GA) Medications and Allergies Home Medications and Allergies Comment(s): Current Medications Aspirin (Aspirin) 325 mg PO DAILY [facility] Last Admin: 01/08/18 09:16 Dose: 325 mg Atorvastatin Calcium (Lipitor) 10 mg PO HS [facility] Last Admin: 01/08/18 20:38 Dose: 10 mg Bacitracin/Polymyxin B Sulfate (Polysporin) 1 applic TOPICAL BID [facility] Last Admin: 01/08/18 20:38 Dose: 1 applic Budesonide/Formoterol Fumarate (Symbicort 80-4.5 Mcg Inhaler) 2 puff INHALATION RT-BID [facility] Last Admin: 01/08/18 19:36 Dose: 2 puff Ciprofloxacin (Cipro) 500 mg PO BID [facility] Last Admin: 01/08/18 20:38 Dose: 500 mg Clopidogrel Bisulfate (Plavix) 75 mg PO DAILY [facility] Last Admin: 01/08/18 09:16 Dose: 75 mg Furosemide (Lasix) 40 mg IV Q12HR [facility] Last Admin: 01/08/18 20:39 Dose: 40 mg Insulin Aspart (Novolog) 0 unit SQ ACHS [facility] PRN Reason: Protocol Last Admin: 01/08/18 20:55 Dose: 2 unit Levothyroxine Sodium (Synthroid) 25 mcg PO DAILY@0630 [facility] Last Admin: 01/08/18 06:36 Dose: 25 mcg Miscellaneous Information (Rx Info: Iv Contrast Was Given) 1 each MISCELLANE DAILY PRN PRN Reason: Per Protocol Stop: 01/09/18 11:59 Miscellaneous Information (Rx Info: Iv Contrast Was Given) 1 each MISCELLANE DAILY PRN PRN Reason: Per Protocol Stop: 01/10/18 13:33 Nitroglycerin (Nitrostat) 0.4 mg SUBLINGUAL Q5M PRN PRN Reason: Chest Pain Pantoprazole Sodium (Protonix) 40 mg PO AC-BID [facility] Last Admin: 01/08/18 17:19 Dose: 40 mg Home Medications Medication Instructions Recorded Confirmed Type Clopidogrel [Plavix] 75 mg PO DAILY 06/22/15 01/07/18 History Fosinopril [Monopril] 20 mg PO [facility] 06/22/15 01/07/18 History Simvastatin [Zocor] 20 mg PO 06/22/15 01/07/18 History Fosinopril [Monopril] 10 mg PO 05/13/17 01/07/18 History Levothyroxine Sodium 25 mcg PO DAILY 05/13/17 01/07/18 History Loratadine [Claritin] 10 mg PO DAILY 05/13/17 01/07/18 History Hydrochlorothiazide [Hydrodiuril] 25 mg PO DAILY 07/20/17 01/07/18 History metFORMIN HCL 1,000 mg PO BID 08/07/17 01/07/18 History Aspirin EC [Ecotrin Low Dose] 81 mg PO DAILY #30 tablet. 09/05/17 01/07/18 Rx Fluticasone/Salmeterol [Advair 1 puff INHALATION RT-BID 12/18/17 01/07/18 History 100-50 Diskus] Omeprazole [PriLOSEC] 20 mg PO AC-BID 12/18/17 01/07/18 History Allergies Allergy/AdvReac Type Severity Reaction Status Date / Time No Known Allergies Allergy Verified 01/07/18 10:48 Physical Exam Vitals: Vital Signs Temp Pulse Resp BP Pulse Ox 01/08/18 19:49 98.3 F 93 19 120/57 95 01/08/18 17:45 81 134/61 95 01/08/18 16:45 82 113/57 94 L 01/08/18 15:45 83 106/52 94 L 01/08/18 15:15 82 111/56 96 01/08/18 15:06 83 18 01/08/18 15:01 83 109/53 94 L 01/08/18 14:45 83 109/53 94 L 01/08/18 14:15 83 18 121/59 95 01/08/18 14:00 82 16 125/60 96 01/08/18 11:27 81 18 01/08/18 10:55 97.7 F 84 18 114/58 96 01/08/18 08:00 97 F L 78 18 111/55 94 L 01/08/18 04:00 97 F L 76 18 118/58 97 01/08/18 00:00 79 16 01/07/18 23:58 96.4 F L 79 16 102/64 93 L Intake and Output 01/08/18 01/08/18 01/08/18 06:59 14:59 22:59 Intake Total 141.269 275 Output Total 1900 400 700 Balance -1758.731 -125 -700 Intake: IV 75 Intake, IV Titration 141.269 Amount Heparin Sod,Pork in 0.45% 141.269 NaCl 25,000 unit In 0.45 % NaCl 1 500ml.bag @ 12 UNITS/KG/HR 14.69 mls/hr IV .Q24H [facility] Rx#: [id number] Oral 200 Output: Urine 1900 400 700 Other: # Voids 1 1 1 # Bowel Movements 1 Weight 63.2 kg 63.2 kg 72-year-old male who is consuming more week until appearance the last time he was seen in the office, also has some confusion. HEENT: Anicteric conjunctiva are pink and moist nasal mucosa grossly intact without significant lesions, there is no thrush. Patient is evidence of the injury to the bridge of his nose with an eschar in place, and has the abrasion on his forehead also besides appear to have no jenny purulence and no drainage minimal surrounding erythema Neck: The neck is supple without significant lymphadenopathy or thyromegaly. Lungs: Symmetrical air entry is noted few expiratory wheezes are heard few basilar crackles are heard. No dullness or egophony is noted. Heart: Irregular with an audible S1 and S2 soft S4 no distinct murmur click or rub PMI was nondisplaced Abdomen: Positive bowel sounds soft and nontender without palpable masses or organomegaly. There was no guarding or rebound. Extremities: Patient is evidence of the recent fall he has evidence of some irritation to his hands but no jenny open ulcerations in the IV site appears to be intact. The bilateral reduction ratio evidence of the abrasions of bilateral knees, has evidence of abrasion to his toes. And then on the right foot plantar has evidence of the diabetic foot ulceration that appears to have penetration through the fat layer, there is some minimal erythema but no purulent drainage at the site. Please refer to the nursing documentation for the photography of these ulcerations and injuries Neuro: The patient is awake and alert he appears nobody's in the hospital. Recognizes me but does not know my name. Follows some simple commands but is having difficulty putting a timeline together what happened to him. He seems confused, I do assist him by putting his legs up in the bed he does have a soft restraint in place. He does not seem to remember trying to get out of bed. Results CBC & Chem 7: 01/08/18 05:44 01/08/18 05:44 Labs: Abnormal Lab Results - Last 24 Hours (Table) 01/07/18 01/07/18 01/08/18 Range/Units 22:07 22:07 05:44 RBC (4.30-5.90) m/uL Hgb (13.0-17.5) gm/dL Hct (39.0-53.0) % RDW (11.5-15.5) % APTT 31.9 H (22.0-30.0) sec BUN 21 H (9-20) mg/dL Creatinine 0.60 L (0.66-1.25) mg/dL Glucose 54 L (74-99) mg/dL POC Glucose (mg/dL) (75-99) mg/dL Total Creatine Kinase 737 H (55-170) U/L CK-MB (CK-2) 9.9 H* (0.0-2.4) ng/mL Troponin I 0.387 H* (0.000-0.034) ng/mL HDL Cholesterol 20 L (40-60) mg/dL 01/08/18 01/08/18 01/08/18 Range/Units 05:44 05:59 20:36 RBC 3.67 L (4.30-5.90) m/uL Hgb 10.5 L (13.0-17.5) gm/dL Hct 31.5 L (39.0-53.0) % RDW 17.7 H (11.5-15.5) % APTT (22.0-30.0) sec BUN (9-20) mg/dL Creatinine (0.66-1.25) mg/dL Glucose (74-99) mg/dL POC Glucose (mg/dL) 69 L 171 H (75-99) mg/dL Total Creatine Kinase (55-170) U/L CK-MB (CK-2) (0.0-2.4) ng/mL Troponin I (0.000-0.034) ng/mL HDL Cholesterol (40-60) mg/dL Laboratory Results WBC 9.2 k/uL (3.8-10.6) 01/08/18 05:44 RBC 3.67 m/uL (4.30-5.90) L 01/08/18 05:44 Hgb 10.5 gm/dL (13.0-17.5) L 01/08/18 05:44 Hct 31.5 % (39.0-53.0) L 01/08/18 05:44 MCV 85.8 fL (80.0-100.0) 01/08/18 05:44 MCH 28.6 pg (25.0-35.0) 01/08/18 05:44 MCHC 33.4 g/dL (31.0-37.0) 01/08/18 05:44 RDW 17.7 % (11.5-15.5) H 01/08/18 05:44 Plt Count 403 k/uL (150-450) 01/08/18 05:44 Neutrophils % 95 % 01/07/18 10:12 Lymphocytes % 2 % 01/07/18 10:12 Monocytes % 2 % 01/07/18 10:12 Eosinophils % 1 % 01/07/18 10:12 Basophils % 0 % 01/07/18 10:12 Neutrophils # 17.9 k/uL (1.3-7.7) H 01/07/18 10:12 Lymphocytes # 0.4 k/uL (1.0-4.8) L 01/07/18 10:12 Monocytes # 0.3 k/uL (0-1.0) 01/07/18 10:12 Eosinophils # 0.1 k/uL (0-0.7) 01/07/18 10:12 Basophils # 0.0 k/uL (0-0.2) 01/07/18 10:12 Hypochromasia Slight 01/07/18 10:12 Anisocytosis Slight 01/08/18 05:44 PT 11.6 sec (9.0-12.0) 01/07/18 10:12 INR 1.2 (<1.2) H 01/07/18 10:12 APTT 28.5 sec (22.0-30.0) 01/08/18 05:44 D-Dimer 2.90 mg/L FEU (<0.60) H 01/07/18 10:12 Sodium 139 mmol/L (137-145) 01/08/18 05:44 Potassium 4.3 mmol/L (3.5-5.1) 01/08/18 05:44 Chloride 102 mmol/L (98-107) 01/08/18 05:44 Carbon Dioxide 27 mmol/L (22-30) 01/08/18 05:44 Anion Gap 10 mmol/L 01/08/18 05:44 BUN 21 mg/dL (9-20) H 01/08/18 05:44 Creatinine 0.60 mg/dL (0.66-1.25) L 01/08/18 05:44 Est GFR (CKD-EPI)AfAm >90 (>60 ml/min/1.73 sqM) 01/08/18 05:44 Est GFR (CKD-EPI)NonAf >90 (>60 ml/min/1.73 sqM) 01/08/18 05:44 Glucose 54 mg/dL (74-99) L 01/08/18 05:44 POC Glucose (mg/dL) 171 mg/dL (75-99) H 01/08/18 20:36 POC Glu Capacity Manager ID Francois Núñez 01/08/18 20:36 Calcium 10.1 mg/dL (8.4-10.2) 01/08/18 05:44 Magnesium 2.1 mg/dL (1.6-2.3) 01/08/18 05:44 Total Bilirubin 0.5 mg/dL (0.2-1.3) 01/07/18 10:12 AST 35 U/L (17-59) 01/07/18 10:12 ALT 23 U/L (21-72) 01/07/18 10:12 Alkaline Phosphatase 67 U/L (38-126) 01/07/18 10:12 Ammonia <9 umol/L (<30) 01/07/18 11:44 Total Creatine Kinase 737 U/L (55-170) H 01/07/18 22:07 CK-MB (CK-2) 9.9 ng/mL (0.0-2.4) H* 01/07/18 22:07 CK-MB (CK-2) Rel Index 1.3 01/07/18 22:07 Troponin I 0.387 ng/mL (0.000-0.034) H* 01/07/18 22:07 NT-Pro-B Natriuret Pep 1370 pg/mL 01/07/18 10:12 Total Protein 4.7 g/dL (6.3-8.2) L 01/07/18 10:12 Albumin 2.2 g/dL (3.5-5.0) L 01/07/18 10:12 Triglycerides 128 mg/dL (<150) 01/08/18 05:44 Cholesterol 72 mg/dL (<200) 01/08/18 05:44 LDL Cholesterol, Calc 26 mg/dL (0-99) 01/08/18 05:44 HDL Cholesterol 20 mg/dL (40-60) L 01/08/18 05:44 Amylase <30 U/L (30-110) L 01/07/18 10:12 Lipase <10 U/L (23-300) L 01/07/18 10:12 Urine Color Yellow 01/08/18 09:55 Urine Appearance Clear (Clear) 01/08/18 09:55 Urine pH 6.0 (5.0-8.0) 01/08/18 09:55 Ur Specific [place] 1.014 (1.001-1.035) 01/08/18 09:55 Urine Protein Negative (Negative) 01/08/18 09:55 Urine Glucose (UA) Negative (Negative) 01/08/18 09:55 Urine Ketones Negative (Negative) 01/08/18 09:55 Urine Blood Negative (Negative) 01/08/18 09:55 Urine Nitrite Negative (Negative) 01/08/18 09:55 Urine Bilirubin Negative (Negative) 01/08/18 09:55 Urine Urobilinogen <2.0 mg/dL (<2.0) 01/08/18 09:55 Ur Leukocyte Esterase Negative (Negative) 01/08/18 09:55 Serum Alcohol <10 mg/dL 01/07/18 10:12 Outpatient culture shows pseudomonas aeruginosa susceptible to ciprofloxacin Assessment and Plan (1) Non-ST elevation myocardial infarction (NSTEMI) Current Visit: Yes Status: Acute Code(s): I21.4 - NON-ST ELEVATION (NSTEMI) MYOCARDIAL INFARCTION SNOMED Code(s): 342862558 (2) Fall Current Visit: Yes Status: Acute Code(s): W19.XXXA - UNSPECIFIED FALL, INITIAL ENCOUNTER SNOMED Code(s): 8520110 (3) Facial abrasion Current Visit: Yes Status: Acute Code(s): S00.81XA - ABRASION OF OTHER PART OF HEAD, INITIAL ENCOUNTER SNOMED Code(s): 428087153 (4) Diabetic ulcer of right foot associated with type 2 diabetes mellitus, with fat layer exposed Current Visit: Yes Status: Acute Code(s): E11.621 - TYPE 2 DIABETES MELLITUS WITH FOOT ULCER; L97.512 - NON-PRS CHRONIC ULCER OTH PRT RIGHT FOOT W FAT LAYER EXPOSED SNOMED Code(s): 5771214798994 (5) Pseudomonas aeruginosa infection Narrative/Plan: 72-year-old male who was noted infectious disease service from his recent hospitalizations and recent office visit. The patient has had multiple difficulties over the last many months with infections and irritations at different places including the periorbital cellulitis, testicular cellulitis and now the diabetic foot ulcer to the right foot that was improving and is now markedly worse. The patient was also noticed to have a markedly elevated sedimentation rate and workup was initiated and thought to be due to underlying infection without other etiology becoming evident. The patient now admits with a non-ST elevated segment GA and is doing quite poorly and that he has confusion is much worse than his baseline. The patient had a fall at home and suffered multiple abrasions. 2 mostly abrasions some triple antibiotic ointment can be applied to help them and to prevent any infection at those sites. He already has a right diabetic foot infection and for that the medical Honey has been requested to be changed every other day. Rapid place. Most recent wound culture shows evidence of the pseudomonas aeruginosa from that site and consequently ciprofloxacin will be added for coverage for the pseudomonas infection of the foot. The duplex was performed there is no evidence of any deep venous thrombosis The patient did have evidence of a significant leukocytosis which is already showing improvement and thought to be due to the acute changes from his fall and the non-STEMI. We'll expect as the patient's underlying infection and metabolic abnormalities improve that his mental status should improve. Current Visit: Yes Status: Acute Code(s): A49.8 - OTHER BACTERIAL INFECTIONS OF UNSPECIFIED SITE SNOMED Code(s): 52823923
[2018-01-09 06:08] LABS: Glucose,Whole Blood 89 mg/dL (75-99)
[2018-01-09] MEDS: INSULIN ASPART 100 UNIT/ML 1 ML 10 ML VIAL SQ SCH ×2 (06:20→12:36)
[2018-01-09] MEDS: LEVOTHYROXINE 25 MCG TAB PO SCH (06:22)
[2018-01-09] MEDS: PANTOPRAZOLE 40 MG TABLET PO SCH (06:22)
[2018-01-09] MEDS: SYMBICORT 80-4.5 MCG INHALER INHALATION SCH (08:29)
[2018-01-09] MEDS: CIPROFLOXACIN HCL 500 MG TAB PO SCH (08:50)
[2018-01-09] MEDS: CLOPIDOGREL 75 MG TAB PO SCH (08:51)
[2018-01-09] MEDS: BACITRACIN/POLYMYX 500-10,000 UNIT/GM OINT 14 GM TUBE TOPICAL SCH (08:51)
[2018-01-09] MEDS: FUROSEMIDE 10 MG/ML 4 ML VIAL IV SCH (08:51)
[2018-01-09] MEDS: ASPIRIN 325 MG TAB PO SCH (08:51)
[2018-01-09 12:22] LABS: Glucose,Whole Blood 217 mg/dL (75-99)
--- NOTE | 2018-01-09 14:17 | P.PN ---
Subjective Progress Note Date: 01/08/18 Patient was admitted secondary to pulmonary edema which is new and patient is going for cardiac ablation because of minimally elevated troponins. Patient looks much better shortest breath completely resolved. Next Constitutional: Denied any fatigue denied any fever. Cardio vascular: denied any chest pain, palpitations Gastrointestinal denied any nausea vomiting Pulmonary: Denied any shortness of breath cough Neurologic denied any new focal deficits Objective - Vital Signs Vital signs: Vital Signs Temp 97 F L 01/09/18 09:00 Pulse 93 01/09/18 09:00 Resp 20 01/09/18 09:00 BP 130/70 01/09/18 09:00 Pulse Ox 94 L 01/09/18 09:00 Intake & Output 01/08/18 01/09/18 01/09/18 18:59 06:59 18:59 Intake Total 275 300 400 Output Total 349 827 7319 Balance -475 -400 -1600 Weight 63.2 kg 65.3 kg Intake: IV 75 Oral 200 300 400 Output: Urine 566 153 1324 Other: # Voids 1 1 3 # Bowel Movements 1 - Exam PHYSICAL EXAMINATION: GENERAL: The patient is alert and oriented x3, not in any acute distress. Well developed, well nourished. HEENT: Pupils are round and equally reacting to light. EOMI. No scleral icterus. No conjunctival pallor. Normocephalic, atraumatic. No pharyngeal erythema. No thyromegaly. Patient has a broken nasal bridge CARDIOVASCULAR: S1 and S2 present. No murmurs, rubs, or gallops. A bit of elevated JVD PULMONARY: Chest is clear to auscultation, no wheezing or crackles. ABDOMEN: Soft, nontender, nondistended, normoactive bowel sounds. No palpable organomegaly. MUSCULOSKELETAL: No joint swelling or deformity. EXTREMITIES: No cyanosis, clubbing, or pedal edema. NEUROLOGICAL: Gross neurological examination did not reveal any focal deficits. SKIN: A small circumferential ulcer on the plantar surface of the right foot and another ulcer with increasing swelling bilateral lower limbs most on the right leg - Labs CBC & Chem 7: 01/08/18 05:44 01/08/18 05:44 Labs: Abnormal Lab Results - Last 24 Hours (Table) 01/08/18 01/09/18 Range/Units 20:36 12:20 POC Glucose (mg/dL) 171 H 217 H (75-99) mg/dL Assessment and Plan Plan: -Generalized weakness and fall: May be secondary to myocardial infarction. or CHF exacerbation -Possible non-ST elevation myocardial infarction with mildly elevated troponin and patient was started on heparin and cardiology recommended cardiac catheterization -Possible congestive heart failure possibility of acute systolic dysfunction: Patient was started on Lasix IV fluids will be discontinued and hydrochlorothiazide will be discontinued echocardiogram will be obtained. Cardiology was consulted as mentioned above probably related to a recent myocardial infarction. -Gastroesophageal reflux disease: Patient was started on Patient's symptoms of acid reflux may be related to RCA area infarct area -Hyponatremia probably secondary to hydrochlorothiazide which will be discontinued Hyperkalemia secondary to secondary to ZACHARY inhibitor which will be held -Leukocytosis probably reactive my suspicion for pneumonia is low -Elevated d-dimer increased swelling in the left right lower limb because of which patient will obtain a Doppler of the right lower extremity -Ulcerations of the right sole of the right foot with Dr. Dixon will be consulted cultures will be obtained from that area.
--- NOTE | 2018-01-09 14:21 | P.DS ---
Providers Date of admission: 01/07/18 15:12 Attending physician: Rachell Goddard Consults: 01/07/18 15:05 Consult Physician Routine Consulting Provider: Shun Dixon Consult Reason/Comments: Right foot wound Do you want consulting provider notified?: Yes Consult Physician Urgent Consulting Provider: Ibrahima Lott Consult Reason/Comments: Non-ST elevation myocardial infarction Do you want consulting provider notified?: Yes Primary care physician: [facility] Course: Patient was admitted secondary to pulmonary edema which is new and patient is going for cardiac ablation because of minimally elevated troponins. Patient looks much better shortest breath completely resolved. 01/09/2018 Patient respiratory status improved patient underwent cardiac catheterization which did not show any significant 10 table atherosclerotic coronary vascular disease. Patient is cleared for discharge patient is ambulating without any assistance at this point of time patient will be discharged today. Patient may have had chronic diastolic dysfunction with acute exacerbation PHYSICAL EXAMINATION: GENERAL: The patient is alert and oriented x3, not in any acute distress. Well developed, well nourished. HEENT: Pupils are round and equally reacting to light. EOMI. No scleral icterus. No conjunctival pallor. Normocephalic, atraumatic. No pharyngeal erythema. No thyromegaly. Patient has a broken nasal bridge CARDIOVASCULAR: S1 and S2 present. No murmurs, rubs, or gallops. JVD is not elevated PULMONARY: Chest is clear to auscultation, no wheezing or crackles. ABDOMEN: Soft, nontender, nondistended, normoactive bowel sounds. No palpable organomegaly. MUSCULOSKELETAL: No joint swelling or deformity. EXTREMITIES: No cyanosis, clubbing, or pedal edema. NEUROLOGICAL: Gross neurological examination did not reveal any focal deficits. SKIN: A small circumferential ulcer on the plantar surface of the right foot and another ulcer with increasing swelling bilateral lower limbs most on the right leg Assessment and Plan Plan: -Generalized weakness and fall: May be secondary to or CHF exacerbation. Much better today patient will return 40 mg of oral Lasix patient will be resumed on low-dose of lisinopril hypotension and excess lisinopril may have contributed to his fall -Ruled out non-ST elevation myocardial infarction with mildly elevated troponin -Possible congestive heart failure possibility of chronic diastolic dysfunction with acute exacerbation -Gastroesophageal reflux disease: Patient was started on Patient's symptoms of acid reflux may be related to RCA area infarct area Hyperkalemia secondary to secondary to ZACHARY inhibitor dose was reduced -Leukocytosis probably reactive my suspicion for pneumonia is low, improved -Elevated d-dimer increased swelling in the left right lower limb because of which patient will obtain a Doppler of the right lower extremity -Ulcerations of the right sole of the right foot with Dr. Dixon will be consulted apparently wound cultures are positive for Pseudomonas and patient is being discharged from [facility] to follow with Dr. Dixon as an outpatient Patient Condition at Discharge: Stable Plan - Discharge Summary Discharge Rx Participant: No New Discharge Prescriptions: New Bacitracin/Polymyx Oint [Polysporin] 1 applic TOPICAL BID #1 tube Ciprofloxacin HCl [Cipro] 500 mg PO BID #20 tab Furosemide [Lasix] 40 mg PO DAILY #30 tablet Continue Clopidogrel [Plavix] 75 mg PO DAILY Simvastatin [Zocor] 20 mg PO HS Fosinopril [Monopril] 10 mg PO HS Levothyroxine Sodium 25 mcg PO DAILY metFORMIN HCL 1,000 mg PO BID Aspirin EC [Ecotrin Low Dose] 81 mg PO DAILY #30 tablet. Omeprazole [PriLOSEC] 20 mg PO AC-BID Fluticasone/Salmeterol [Advair 100-50 Diskus] 1 puff INHALATION RT-BID Discontinued Fosinopril [Monopril] 20 mg PO QAM Loratadine [Claritin] 10 mg PO DAILY Hydrochlorothiazide [Hydrodiuril] 25 mg PO DAILY Discharge Medication List Clopidogrel [Plavix] 75 mg PO DAILY 06/22/15 [History] Simvastatin [Zocor] 20 mg PO HS 06/22/15 [History] Fosinopril [Monopril] 10 mg PO HS 05/13/17 [History] Levothyroxine Sodium 25 mcg PO DAILY 05/13/17 [History] metFORMIN HCL 1,000 mg PO BID 08/07/17 [History] Aspirin EC [Ecotrin Low Dose] 81 mg PO DAILY #30 tablet. 09/05/17 [Rx] Fluticasone/Salmeterol [Advair 100-50 Diskus] 1 puff INHALATION RT-BID 12/18/17 [History] Omeprazole [PriLOSEC] 20 mg PO AC-BID 12/18/17 [History] Bacitracin/Polymyx Oint [Polysporin] 1 applic TOPICAL BID #1 tube 01/09/18 [Rx] Ciprofloxacin HCl [Cipro] 500 mg PO BID #20 tab 01/09/18 [Rx] Furosemide [Lasix] 40 mg PO DAILY #30 tablet 01/09/18 [Rx] Follow up Appointment(s)/Referral(s): Isabelle Fuentes MD [Primary Care Provider] - 3 Days Discharge Disposition: HOME SELF-CARE
--- NOTE | 2018-01-09 14:55 | P.PN ---
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 He does not recall if he lost his consciousness. Does not recall having any chest pain or chest discomfort or shortness of breath more than his baseline shortness of breath. Does not recall having any dizziness or lightheadedness around the episode as well. His was at home but she was not at the same room according to him. The called ambulance and the patient was brought to the hospital by ambulance.Since he was admitted to the hospital he has been pain-free. The EKG showed sinus rhythm with intraventricular conduction delay and left anterior fascicular block. The cardiac enzymes were checked and the troponin came in to be slightly abnormal. The BNP came in to be around 1000. 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 Patient did undergo cardiac catheterization by Dr. Lott which revealed RCA and circumflex disease, medical therapy was advised. He was seen and examined this morning, denied any chest pain or difficulty in breathing. He's been up ambulating without any difficulty. Objective - Vital Signs Vital signs: Vital Signs Temp 97 F L 01/09/18 09:00 Pulse 93 01/09/18 09:00 Resp 20 01/09/18 09:00 BP 130/70 01/09/18 09:00 Pulse Ox 94 L 01/09/18 09:00 Intake & Output 01/08/18 01/09/18 01/09/18 18:59 06:59 18:59 Intake Total 275 300 400 Output Total 683 988 1178 Balance -331 -400 1600 Weight 63.2 kg 65.3 kg Intake: IV 75 Oral 200 300 400 Output: Urine [id number] Other: # Voids 1 1 3 # Bowel Movements 1 - Exam PHYSICAL EXAMINATION: HEENT: Head is atraumatic, normocephalic. Pupils equal, round. Neck is supple. There is no elevated jugular venous pressure. HEART EXAMINATION: Heart S1, S2 normal. No murmur or gallop heard. CHEST EXAMINATION: Lungs are clear to auscultation and precussion. No chest wall tenderness is noted on palpation or with deep breathing. ABDOMEN: Soft, nontender. Bowel sounds are heard. No organomegaly noted. Right groin soft, no evidence of any hematoma. EXTREMITIES: 1+ peripheral pulses with no evidence of peripheral edema and no calf tenderness noted. Dressing noted to the left lower extremity. NEUROLOGIC patient is awake, alert and oriented -3. . - Labs CBC & Chem 7: 01/08/18 05:44 01/08/18 05:44 Labs: Abnormal Lab Results - Last 24 Hours (Table) 01/08/18 01/09/18 Range/Units 20:36 12:20 POC Glucose (mg/dL) 171 H 217 H (75-99) mg/dL Assessment and Plan Plan: Assessment #1 mildly abnormal cardiac enzymes, status post cardiac catheterization which revealed disease in the RCA and circumflex, cold therapy advised. #2 status post fall with or without syncope #3 peripheral arterial disease as described above #4 carotid artery disease as described above as well #5 multiple risk factors for CAD including diabetes, hypertension, dyslipidemia #6 evidence of critical limb ischemia with nonhealing ulcer involving the right toe Plan From cardiology's perspective, patient may be able to be discharged home once cleared by the primary. We will make him a follow-up appointment in the office to see Dr. Covarrubias post discharge. DNP note has been reviewed, I agree with a documented findings and plan of care. Patient was seen and examined.
[2018-01-09 15:01] VITALS: BP 104/52; PULSE 92; RESP 18; TEMP 97.9
[2018-01-10] MEDS ORDERED: ASPIRIN 81 MG PO SCH (09:00)
[2018-01-10] MEDS ORDERED: ATORVASTATIN 20 MG TAB PO SCH (09:00)
--- NOTE | 2018-01-13 09:56 | CDI ---
Last Revision, August 2017 Documentation Clarification Form Date: 01/13/18 From: Isabel Jimenes Phone: If you have a question regarding this query, please contact Chelle Hussein at [phone] between 8am and 5pm. Admit Date: 01/07/2018 3:12:00 PM Patient Name: Cirilo Leung Visit Number: [id number] Discharge Date: 01/09/18 ATTENTION: The Clinical Documentation Specialists (CDI) and [facility] Coding Staff appreciate your assistance in clarifying documentation. Please respond to the clarification below the line at the bottom and electronically sign. The CDI & [facility] Coding staff will review the response and follow-up if needed. Please note: Queries are made part of the Legal Health Record. If you have any questions, please contact the author of this message via ITS. Dr. Shun Dixon Patient has a diabetic foot infection with ulcer on the plantar surface of the right foot. Patient history/risk factors: Diabetes and peripheral vascular disease Clinical Indicators: Increased swelling with minimal erythema. Treatment: PO Cipro, Topical Bacitracin In your professional opinion, can you please clarify the type of diabetic infection? Abscess Cellulitis Other, please specify Unable to determine Diabetic foot ulcer with cellulitis and fat layer exposed MTDD
== END 2018-01-09 15:35 | disposition home or self-care (01) | DRG 292 ==
LOC: EC 09:54 → 6SEL 15:12
PROVIDERS: ADMIT Internal Medicine; ATTEND Internal Medicine
DX: I11.0 Hypertensive heart disease with heart failure (principal); E87.1 Hypo-osmolality and hyponatremia; L03.115 Cellulitis of right lower limb; L97.419 Non-pressure chronic ulcer of right heel and midfoot with unspecified severity; I50.33 Acute on chronic diastolic (congestive) heart failure; E11.628 Type 2 diabetes mellitus with other skin complications; L97.512 Non-pressure chronic ulcer of other part of right foot with fat layer exposed; E11.51 Type 2 diabetes mellitus with diabetic peripheral angiopathy without gangrene; E86.0 Dehydration; E11.621 Type 2 diabetes mellitus with foot ulcer; E87.5 Hyperkalemia; I45.10 Unspecified right bundle-branch block; J44.9 Chronic obstructive pulmonary disease, unspecified; D72.829 Elevated white blood cell count, unspecified; E78.5 Hyperlipidemia, unspecified; H35.30 Unspecified macular degeneration; I25.10 Atherosclerotic heart disease of native coronary artery without angina pectoris; I25.2 Old myocardial infarction; K21.9 Gastro-esophageal reflux disease without esophagitis; R79.1 Abnormal coagulation profile; T46.4X5A Adverse effect of angiotensin-converting-enzyme inhibitors, initial encounter; T50.2X5A Adverse effect of carbonic-anhydrase inhibitors, benzothiadiazides and other diuretics, initial encounter; E07.9 Disorder of thyroid, unspecified; I65.22 Occlusion and stenosis of left carotid artery; K44.9 Diaphragmatic hernia without obstruction or gangrene; K57.90 Diverticulosis of intestine, part unspecified, without perforation or abscess without bleeding; M19.90 Unspecified osteoarthritis, unspecified site; R01.1 Cardiac murmur, unspecified; R29.6 Repeated falls; S00.81XA Abrasion of other part of head, initial encounter; S80.211A Abrasion, right knee, initial encounter; B96.5 Pseudomonas (aeruginosa) (mallei) (pseudomallei) as the cause of diseases classified elsewhere; I99.8 Other disorder of circulatory system; I44.4 Left anterior fascicular block; T46.4X1A Poisoning by angiotensin-converting-enzyme inhibitors, accidental (unintentional), initial encounter; I95.2 Hypotension due to drugs; Z79.84 Long term (current) use of oral hypoglycemic drugs; Z79.02 Long term (current) use of antithrombotics/antiplatelets; Z79.899 Other long term (current) drug therapy; Z79.82 Long term (current) use of aspirin; Z87.891 Personal history of nicotine dependence; Z87.01 Personal history of pneumonia (recurrent); Z80.1 Family history of malignant neoplasm of trachea, bronchus and lung; Z82.49 Family history of ischemic heart disease and other diseases of the circulatory system; Z83.3 Family history of diabetes mellitus; W18.30XA Fall on same level, unspecified, initial encounter; Y92.002 Bathroom of unspecified non-institutional (private) residence as the place of occurrence of the external cause; Y92.009 Unspecified place in unspecified non-institutional (private) residence as the place of occurrence of the external cause
CPT/HCPCS: 36415; 70450; 70486; 71046; 71275; 72125; 80048; 80053; 80061; 80320; 81003; 82140; 82150; 82550; 82553; 83690; 83735; 83880; 84484; 85025; 85027; 85379; 85610; 85730; 93005; 93458; 94640; 96361; 96374; 99285

== ENCOUNTER → 2018-01-19 | Outpatient (CLI) | payer MEDICARE, BC ==
[2018-01-19 12:41] LABS: Blood Urea Nitrogen 20 mg/dL (9-20)
--- NOTE | 2018-01-19 14:45 | CT ---
EXAMINATION TYPE: CT abdomen pelvis w con DATE OF EXAM: 01/19/2018 COMPARISON: NONE HISTORY: Weight loss, Nausea CT DLP: 1349 mGycm, Automated Exposure Control for Dose Reduction was Utilized. CONTRAST: CT scan of the abdomen and pelvis is performed with oral and with IV Contrast, patient injected with 100 ml mL of Isovue 300. FINDINGS: LUNG BASES: There are tiny right greater than left pleural effusions. There is associated compressive atelectasis. There is more patchy right basilar consolidation and/or atelectatic change. There is co ronary artery calcification in the RCA distribution versus stent. There is mild interstitial prominen ce suggesting edema. LIVER/GB: Subcentimeter hypodense lesion right hepatic lobe axial image 20 is too small to further ch aracterize but presumed benign. PANCREAS: No significant abnormality is seen. SPLEEN: No significant abnormality is seen. ADRENALS: No significant abnormality is seen. KIDNEYS: There is simple appearing 3.5 cm cyst posteriorly upper pole level right kidney axial image 26. There is simple appearing 3.3 cm cyst centrally mid to lower pole level left kidney axial image 3 5. There is symmetric cortical medullary uptake and excretion from both kidneys without evidence of h ydronephrosis bilaterally. No intraluminal mass in the bladder is present BOWEL: Oral contrast does not reach colonic level making evaluation suboptimal. There is no suspiciou s small or large bowel dilatation. There is mild wall thickening at level of hepatic flexure with mil [id number] surrounding fluid seen best near coronal image 55. Sigmoid colonic diverticulosis is pr esent without convincing CT evidence for acute diverticulitis PROSTATE/SEMINAL VESICLES: Central zone calcifications are seen in normal size prostate gland. LYMPH NODES: No greater than 1cm abdominal or pelvic lymph nodes are appreciated. OSSEOUS STRUCTURES: There is marked joint space loss at level of pubic symphysis. There is moderate t o severe narrowing with mild spurring in both hips. There is prominent spurring in the thoracic spine without disc space narrowing, correlate for DISH. OTHER: There is small fat and tiny mesenteric vessel containing right inguinal hernia and moderate si zed fat and tiny mesenteric vessel containing left inguinal hernia. There is moderate size left periu mbilical hernia containing fat and tiny mesenteric vessels on axial image 53. There is fairly severe atherosclerotic change of aorta extending into pelvic branch vessels. Mild to moderate diffuse soft tissue anasarca is present. IMPRESSION: 1. No bowel obstruction is seen. Possible mild colitis near level of hepatic flexure, slightly more p rominent edema or ascites is noted at this level. Underlying neoplasm felt unlikely but not excluded. Advise colonoscopy follow up after treatment if has not been performed in last 3 years. 2. Mild to moderate diffuse soft tissue anasarca with tiny bilateral pleural effusions and small amou nt of abdominal ascites, correlate for fluid overload state advised.
== END | disposition home or self-care (01) ==
LOC: RADCTMAIN 11:58
PROVIDERS: ATTEND Internal Medicine
DX: R18.8 Other ascites (principal)
CPT/HCPCS: 82565; 84520; 74177; 36415; Q9967

== ENCOUNTER 2018-01-29 15:41 | Inpatient (IN) | payer MEDICARE, BC ==
[2018-01-29] MEDS ORDERED: SODIUM CHLORIDE 0.9% 1,000 ML IV STA (16:13)
[2018-01-29 16:52] LABS: Anisocytosis Slight; Basophils % (A) 0 %; Eosinophils # (A) 0.2 k/uL (0-0.7); Eosinophils % (A) 2 %; HCT 29.3 % (39.0-53.0); Lymphocytes # (A) 0.8 k/uL (1.0-4.8); Lymphocytes % (A) 6 %; MCH 27.5 pg (25.0-35.0); MCHC 30.9 g/dL (31.0-37.0); MCV 88.9 fL (80.0-100.0); Mean Platelet Volume 7.8; Monocytes # (A) 0.3 k/uL (0-1.0); Monocytes % (A) 3 %; Neutrophils # (A) 11.4 k/uL (1.3-7.7); Neutrophils % (A) 89 %; Platelet Count 532 k/uL (150-450); RBC 3.29 m/uL (4.30-5.90); RDW 17.6 % (11.5-15.5); WBC 12.8 k/uL (3.8-10.6)
[2018-01-29 17:01] LABS: Albumin 2.8 g/dL (3.5-5.0); Calcium 12.7 mg/dL (8.4-10.2); Magnesium 1.8 mg/dL (1.6-2.3); Phosphorus 4.1 mg/dL (2.5-4.5); Potassium 3.9 mmol/L (3.5-5.1); Total Bilirubin 0.3 mg/dL (0.2-1.3); Total Protein 5.8 g/dL (6.3-8.2)
[2018-01-29 17:10] LABS: INR 1.1 (<1.2); Partial Thromboplastin Time 22.9 sec (22.0-30.0); Prothrombin Time 10.9 sec (9.0-12.0)
--- NOTE | 2018-01-29 17:12 | ED ---
General Adult HPI - General Chief complaint: Altered Mental Status Stated complaint: Confusion, unable to urinate Time Seen by Provider: 01/29/18 16:09 Source: patient, RN notes reviewed, old records reviewed Mode of arrival: ambulatory Limitations: no limitations - History of Present Illness Initial comments: This is a 72-year-old male to the ER for evaluation. Patient has a for evaluation regards to altered mental status. Patient states he feels weak and does not feel well. Patient is recent hospital admission for the exact same symptoms. No change in medications no fevers, patient states he has decreased urinary output decreased bowel movements. Decreased hearing. Level and decreased appetite. - Related Data Home Medications Medication Instructions Recorded Confirmed Clopidogrel [Plavix] 75 mg PO DAILY 06/22/15 01/29/18 Fosinopril [Monopril] 10 mg PO HS 05/13/17 01/29/18 Levothyroxine Sodium 25 mcg PO DAILY 05/13/17 01/29/18 metFORMIN HCL 1,000 mg PO BID 08/07/17 01/29/18 Fluticasone/Salmeterol [Advair 1 puff INHALATION RT-BID 12/18/17 01/29/18 100-50 Diskus] Omeprazole [PriLOSEC] 20 mg PO AC-BID 12/18/17 01/29/18 Aspirin EC [Ecotrin Low Dose] 81 mg PO HS 01/29/18 01/29/18 Aspirin EC [Ecotrin] 325 mg PO HS 01/29/18 01/29/18 Cod Liver Oil 1 cap PO DAILY 01/29/18 01/29/18 Cognium 1 tab PO DAILY 01/29/18 01/29/18 Cyanocobalamin (Vitamin B-12) 1,000 mcg PO DAILY 01/29/18 01/29/18 [Vitamin B-12] Hydrochlorothiazide [Hydrodiuril] 25 mg PO DAILY 01/29/18 01/29/18 Iron(Unknown Dose) 1 tab PO DAILY 01/29/18 01/29/18 Megestrol [Megace] 400 mg PO BID 01/29/18 01/29/18 Multivitamins, Thera [Multivitamin 1 tab PO DAILY 01/29/18 01/29/18 (formulary)] Pyridoxine HCl (Vitamin B6) 100 mg PO DAILY 01/29/18 01/29/18 [Vitamin B-6] Vitamin B Complex 1 cap PO DAILY 01/29/18 01/29/18 Vitamin E 100 unit PO DAILY 01/29/18 01/29/18 Vits A,C,E/Lutein/Minerals 1 tab PO DAILY 01/29/18 01/29/18 [Ocuvite with Lutein Tablet] Previous Rx's Medication Instructions Recorded Furosemide [Lasix] 40 mg PO DAILY #30 tablet 01/09/18 Allergies Allergy/AdvReac Type Severity Reaction Status Date / Time No Known Allergies Allergy Verified 01/29/18 17:07 Review of Systems ROS Statement: Those systems with pertinent positive or pertinent negative responses have been documented in the HPI. ROS Other: All systems not noted in ROS Statement are negative. Past Medical History Past Medical History: Asthma, COPD, Diabetes Mellitus, Eye Disorder, GERD/Reflux , Hyperlipidemia, Hypertension, Myocardial Infarction (CT), Osteoarthritis (OA) , Pneumonia, Thyroid Disorder, Vascular Disorder Additional Past Medical History / Comment(s): per - pt's general overall health /abilty has been deteriorating last few weeks. getting very foregetfull, weak, falls.MACULAR DEGENERATION lt eye, PVD. hx heart murmur,diverticulosis, carotid stenosis, rt foot ulcer, anemia-sees dr castillo, past lt eye/orbital cellulitis and rt hand cellulitis. hiatal hernia.neuropaathy hands/feet. Last Myocardial Infarction Date:: 1996? History of Any Multi-Drug Resistant Organisms: None Reported Past Surgical History: Orthopedic Surgery Additional Past Surgical History / Comment(s): ANA AORTAGRAM WITH ANA STENTS. , LEFT SHOULDER WITH HARDWARE ( HARDWARE REMOVED) , LEFT KNEE ligament repair. colonocopy , FASCIOTOMY OF RIGHT CALF egd w/bx. Past Anesthesia/Blood Transfusion Reactions: No Reported Reaction Past Psychological History: No Psychological Hx Reported Smoking Status: Former smoker Past Alcohol Use History: Occasional Past Drug Use History: None Reported - Past Family History Sister(s) Family Medical History: Cancer Additional Family Medical History / Comment(s): Lung Cancer Mother Family Medical History: No Reported History Additional Family Medical History / Comment(s): from "natural causes" Father Family Medical History: Coronary Artery Disease (CAD), Diabetes Mellitus, Myocardial Infarction (CT) General Exam Limitations: no limitations General appearance: alert, in no apparent distress Head exam: Present: atraumatic, normocephalic, normal inspection Eye exam: Present: normal appearance, PERRL, EOMI. Absent: scleral icterus, conjunctival injection, periorbital swelling ENT exam: Present: normal exam, mucous membranes moist Neck exam: Present: normal inspection. Absent: tenderness, meningismus, lymphadenopathy Respiratory exam: Present: normal lung sounds bilaterally. Absent: respiratory distress, wheezes, rales, rhonchi, stridor Cardiovascular Exam: Present: regular rate, normal rhythm, normal heart sounds. Absent: systolic murmur, diastolic murmur, rubs, gallop, clicks GI/Abdominal exam: Present: soft, normal bowel sounds. Absent: distended, tenderness, guarding, rebound, rigid Extremities exam: Present: normal inspection, full ROM, normal capillary refill. Absent: tenderness, pedal edema, joint swelling, calf tenderness Back exam: Present: normal inspection Neurological exam: Present: alert, oriented X3, CN II-XII intact Psychiatric exam: Present: normal affect, normal mood Skin exam: Present: warm, dry, intact, normal color. Absent: rash Course Vital Signs 01/29/18 01/29/18 15:46 17:48 Temperature 98.3 F Pulse Rate 89 83 Respiratory 18 20 Rate Blood Pressure 152/67 168/72 O2 Sat by Pulse 96 96 Oximetry EKG Findings - EKG Comments: EKG Findings:: EKG shows sinus rhythm rate of 86, HI 182, QRS 82, QTc 454 Medical Decision Making - Medical Decision Making 69 female the ER for evaluation, to be admitted for 22 CHF, not acting and feeling appropriate, occasionally altered mental status. Will admit for diuresis and trending of troponin - Lab Data Result diagrams: 01/29/18 16:45 01/29/18 16:45 Lab Results 01/29/18 01/29/18 01/29/18 Range/Units 16:45 16:45 16:45 WBC 12.8 H (3.8-10.6) k/uL RBC 3.29 L (4.30-5.90) m/uL Hgb 9.0 L D (13.0-17.5) gm/dL Hct 29.3 L (39.0-53.0) % MCV 88.9 (80.0-100.0) fL MCH 27.5 (25.0-35.0) pg MCHC 30.9 L (31.0-37.0) g/dL RDW 17.6 H (11.5-15.5) % Plt Count 532 H (150-450) k/uL Neutrophils % 89 % Lymphocytes % 6 % Monocytes % 3 % Eosinophils % 2 % Basophils % 0 % Neutrophils # 11.4 H (1.3-7.7) k/uL Lymphocytes # 0.8 L (1.0-4.8) k/uL Monocytes # 0.3 (0-1.0) k/uL Eosinophils # 0.2 (0-0.7) k/uL Basophils # 0.0 (0-0.2) k/uL Anisocytosis Slight PT (9.0-12.0) sec INR (<1.2) APTT (22.0-30.0) sec Sodium 143 (137-145) mmol/L Potassium 3.9 (3.5-5.1) mmol/L Chloride 103 (98-107) mmol/L Carbon Dioxide 27 (22-30) mmol/L Anion Gap 13 mmol/L BUN 34 H (9-20) mg/dL Creatinine 1.15 (0.66-1.25) mg/dL Est GFR (CKD-EPI)AfAm 73 (>60 ml/min/1.73 sqM) Est GFR (CKD-EPI)NonAf 63 (>60 ml/min/1.73 sqM) Glucose 142 H (74-99) mg/dL Calcium 12.7 H (8.4-10.2) mg/dL Phosphorus 4.1 (2.5-4.5) mg/dL Magnesium 1.8 (1.6-2.3) mg/dL Total Bilirubin 0.3 (0.2-1.3) mg/dL AST 24 (17-59) U/L ALT 22 (21-72) U/L Alkaline Phosphatase 54 (38-126) U/L Total Creatine Kinase 29 L (55-170) U/L CK-MB (CK-2) 1.9 (0.0-2.4) ng/mL CK-MB (CK-2) Rel Index 6.6 Troponin I 0.044 H* (0.000-0.034) ng/mL Total Protein 5.8 L (6.3-8.2) g/dL Albumin 2.8 L (3.5-5.0) g/dL 01/29/18 Range/Units 16:45 WBC (3.8-10.6) k/uL RBC (4.30-5.90) m/uL Hgb (13.0-17.5) gm/dL Hct (39.0-53.0) % MCV (80.0-100.0) fL MCH (25.0-35.0) pg MCHC (31.0-37.0) g/dL RDW (11.5-15.5) % Plt Count (150-450) k/uL Neutrophils % % Lymphocytes % % Monocytes % % Eosinophils % % Basophils % % Neutrophils # (1.3-7.7) k/uL Lymphocytes # (1.0-4.8) k/uL Monocytes # (0-1.0) k/uL Eosinophils # (0-0.7) k/uL Basophils # (0-0.2) k/uL Anisocytosis PT 10.9 (9.0-12.0) sec INR 1.1 (<1.2) APTT 22.9 (22.0-30.0) sec Sodium (137-145) mmol/L Potassium (3.5-5.1) mmol/L Chloride (98-107) mmol/L Carbon Dioxide (22-30) mmol/L Anion Gap mmol/L BUN (9-20) mg/dL Creatinine (0.66-1.25) mg/dL Est GFR (CKD-EPI)AfAm (>60 ml/min/1.73 sqM) Est GFR (CKD-EPI)NonAf (>60 ml/min/1.73 sqM) Glucose (74-99) mg/dL Calcium (8.4-10.2) mg/dL Phosphorus (2.5-4.5) mg/dL Magnesium (1.6-2.3) mg/dL Total Bilirubin (0.2-1.3) mg/dL AST (17-59) U/L ALT (21-72) U/L Alkaline Phosphatase (38-126) U/L Total Creatine Kinase (55-170) U/L CK-MB (CK-2) (0.0-2.4) ng/mL CK-MB (CK-2) Rel Index Troponin I (0.000-0.034) ng/mL Total Protein (6.3-8.2) g/dL Albumin (3.5-5.0) g/dL - Radiology Data Radiology results: report reviewed (Chest x-rays negative for acute disease), image reviewed Disposition Clinical Impression: Altered mental status, CHF (congestive heart failure) Disposition: ADMITTED IP TO THIS [facility] Condition: Fair Instructions: Altered Mental Status (ED) Is patient prescribed a controlled substance at d/c from ED?: No Referrals: Isabelle Fuentes MD [Primary Care Provider] - 1-2 days
[2018-01-29 17:25] LABS: Creatine Kinase MB 1.9 ng/mL (0.0-2.4)
[2018-01-29 17:26] LABS: Troponin I 0.044 ng/mL (0.000-0.034)
--- NOTE | 2018-01-29 17:47 | CT ---
EXAMINATION: CT brain wo con DATE AND TIME: 01/29/2018 5:27 PM ORDERING PROVIDER: Harman Adamson DO CLINICAL INDICATION: weakness TECHNIQUE: Standard departmental protocol. COMPARISON: 01/07/2018 CT DESCRIPTION: The calvarium is intact. There is no intracranial hemorrhage. There is no mass or mass effect. There is no definite new attenuation defect. Nonspecific low attenuation is seen bilaterally within t he sullivan radiata and centrum semiovale, generally nonspecific and unchanged when compared to prior s tudy. Remainder of the intra-axial and extra-axial compartment examination is unremarkable. The paranasal sinuses, middle ear cavities, and mastoid sinus air cells are clear. The orbits are int act. IMPRESSION: NO DEFINITE ACUTE PROCESS.
--- NOTE | 2018-01-29 18:43 | XR ---
EXAMINATION TYPE: XR abdomen acute w cxr DATE OF EXAM: 01/29/2018 COMPARISON: None. HISTORY: Pain TECHNIQUE: Supine, upright, and left side down lateral decubitus views of the abdomen are obtained. FINDINGS: AP chest: There is a fine reticular pattern of increased density throughout the lungs which completel y silhouettes the pulmonary vasculature symmetrically and reaches the periphery as septal lines, cons istent with advanced interstitial phase pulmonary edema. There is no enlargement of the cardiac silho uette and, therefore, the pulmonary edema could be on a cardiogenic or noncardiogenic basis. There is no pneumothorax. No pleural effusion. No acute bone or soft tissue findings, but markedly hypertroph ic left mid clavicular remote fracture noted. Abdomen radiographs: Supine and upright views were obtained. No pneumatosis, no pneumoperitoneum. Mar ked volume of stool seen throughout the colon including the rectosigmoid. Bowel gas pattern is otherw ise unremarkable. No acute bone or soft tissue findings, but an impressive flowing osteophytes patter n is seen throughout the lumbar and lower dorsal spine, raising the question of ankylosing spondyliti s. Bilateral advanced hip osteoarthritis changes are also noted. IMPRESSION: CHEST: ADVANCED INTERSTITIAL PHASE PULMONARY EDEMA. ABDOMEN AND PELVIS: COLONIC IMPACTION.
[2018-01-29] MEDS ORDERED: cefTRIAXone IN SWFI 1,000 MG/10 ML SYRINGE IVP STA (19:11)
[2018-01-29] MEDS: FUROSEMIDE 10 MG/ML 4 ML VIAL IV SCH (19:33)
[2018-01-29 20:51] LABS: Glucose,Whole Blood 111 mg/dL (75-99)
[2018-01-29 21:05] LABS: Appearance,Urine Cloudy (Clear); Bacteria,Urine Rare /hpf; Bilirubin,Urine Negative (Negative); Blood,Urine Negative (Negative); Budding Yeast,Urine Moderate /hpf; Color,Urine Light Yellow; Glucose,Urine (UA) Negative (Negative); Ketones,Urine Negative (Negative); Leukocyte Esterase,Urine Negative (Negative); Mucus,Urine Rare /hpf; Nitrite,Urine Negative (Negative); PH, Urine 6.5 (5.0-8.0); Protein,Urine Trace (Negative); RBC,Urine 4 /hpf (0-5); Urobilinogen,Urine <2.0 mg/dL (<2.0); WBC,Urine 6 /hpf (0-5)
[2018-01-29] MEDS: HEPARIN SODIUM,PORCINE 5,000 UNIT/ML 1 ML VIAL SQ SCH (21:12)
[2018-01-29] MEDS: LISINOPRIL 10 MG TAB PO SCH (23:00)
[2018-01-30 06:01] LABS: Glucose,Whole Blood 105 mg/dL (75-99)
[2018-01-30] MEDS: FUROSEMIDE 10 MG/ML 4 ML VIAL IV SCH ×2 (06:03→20:57)
[2018-01-30] MEDS: LEVOTHYROXINE 25 MCG TAB PO SCH (06:03)
[2018-01-30] MEDS: INSULIN ASPART 100 UNIT/ML 1 ML 10 ML VIAL SQ SCH ×4 (06:04→20:58)
--- NOTE | 2018-01-30 09:22 | US ---
EXAMINATION TYPE: US venous doppler duplex LE RT DATE OF EXAM: 01/30/2018 9:09 AM COMPARISON: Previous study dated 01/07/2018. CLINICAL HISTORY: Pain. swelling SIDE PERFORMED: Right TECHNIQUE: The lower extremity deep venous system is examined utilizing real time linear array sonog heri with graded compression, doppler sonography and color-flow sonography. VESSELS IMAGED: External Iliac Vein (EIV) Common Femoral Vein Deep Femoral Vein Greater Saphenous Vein * Femoral Vein Popliteal Vein Small Saphenous Vein * Proximal Calf Veins (* superficial vessels) Incidental lymph nodes seen in groin; largest ones measured. Right Leg: Negative for DVT No popliteal fossa lesion is seen. There are normal-sized lymph nodes in the right groin. IMPRESSION: THIS EXAMINATION IS NEGATIVE FOR DVT IN THE RIGHT LEG.
[2018-01-30] MEDS: HEPARIN SODIUM,PORCINE 5,000 UNIT/ML 1 ML VIAL SQ SCH ×2 (09:51→20:57)
[2018-01-30 11:38] LABS: Glucose,Whole Blood 110 mg/dL (75-99)
--- NOTE | 2018-01-30 12:27 | P.CRDCN ---
History of Present Illness Consult date: 01/30/18 Requesting physician: Nate Hogan Reason for Consult (text): Congestive heart failure Consult reason: congestive heart failure Chief complaint: Weakness History of present illness: This is a 72-year-old male patient presented to the emergency department with chief complaint of weakness. He was recently hospitalized for congestive heart failure and was treated and released. The patient underwent cardiac catheterization in December 2017 that showed intermediate disease of the RCA and left circumflex. He follows with Dr. Covarrubias in the office on a regular basis and does have history of stent placement in the past, hypertension and PVD. It was recommended that he continue with medical management. Patient denies any chest discomfort. Serial troponins are negative. His hemoglobin is 9, his hemoglobin last admission was above 10. He denies any dark or bright red blood per rectum. The patient does have unilateral swelling to the right lower extremity, venous Doppler was negative for DVT. No chest x-ray or BNP level was obtained. He does have mild crackles posteriorly but no JVD. He has been up ambulating and does have shortness of breath but does not describe any worsening. He seen sitting up in bed he's in no acute distress. Review of Systems All systems: negative Constitutional: Reports as per HPI Eyes: denies as per HPI Ears: bilateral: decreased hearing Cardiovascular: Reports leg edema (Right lower extremity) Respiratory: Reports dyspnea Musculoskeletal: Reports frequent falls, Reports muscle weakness (Generalized) Musculoskeletal: bilateral: knee pain (Abrasions noted bilaterally) Neurological: Reports gait dysfunction, Reports weakness Past Medical History Past Medical History: Asthma, COPD, Diabetes Mellitus, Eye Disorder, GERD/Reflux , Hyperlipidemia, Hypertension, Myocardial Infarction ([place]), Osteoarthritis (OA) , Pneumonia, Thyroid Disorder, Vascular Disorder Additional Past Medical History / Comment(s): per - pt's general overall health /abilty has been deteriorating last few weeks. getting very foregetfull, weak, falls.MACULAR DEGENERATION lt eye, PVD. hx heart murmur,diverticulosis, carotid stenosis, rt foot ulcer, anemia-sees dr castillo, past lt eye/orbital cellulitis and rt hand cellulitis. hiatal hernia.neuropaathy hands/feet. Last Myocardial Infarction Date:: 1996? History of Any Multi-Drug Resistant Organisms: None Reported Past Surgical History: Orthopedic Surgery Additional Past Surgical History / Comment(s): ANA AORTAGRAM WITH ANA STENTS. , LEFT SHOULDER WITH HARDWARE ( HARDWARE REMOVED) , LEFT KNEE ligament repair. colonocopy , FASCIOTOMY OF RIGHT CALF egd w/bx. Past Anesthesia/Blood Transfusion Reactions: No Reported Reaction Past Psychological History: No Psychological Hx Reported Additional Psychological History / Comment(s): . 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 He lives at home with his and there is a dog and a cat in the home. He travels frequently to [place] where his children and grandchildren live Past Drug Use History: None Reported - Past Family History Sister(s) Family Medical History: Cancer Additional Family Medical History / Comment(s): Lung Cancer Mother Family Medical History: No Reported History Additional Family Medical History / Comment(s): from "natural causes" Father Family Medical History: Coronary Artery Disease (CAD), Diabetes Mellitus, Myocardial Infarction ([place]) Medications and Allergies Home Medications Medication Instructions Recorded Confirmed Type Clopidogrel [Plavix] 75 mg PO DAILY 06/22/15 01/29/18 History Fosinopril [Monopril] 10 mg PO HS 05/13/17 01/29/18 History Levothyroxine Sodium 25 mcg PO DAILY 05/13/17 01/29/18 History metFORMIN HCL 1,000 mg PO BID 08/07/17 01/29/18 History Fluticasone/Salmeterol [Advair 1 puff INHALATION RT-BID 12/18/17 01/29/18 History 100-50 Diskus] Omeprazole [PriLOSEC] 20 mg PO AC-BID 12/18/17 01/29/18 History Furosemide [Lasix] 40 mg PO DAILY #30 tablet 01/09/18 01/29/18 Rx Aspirin EC [Ecotrin Low Dose] 81 mg PO HS 01/29/18 01/29/18 History Aspirin EC [Ecotrin] 325 mg PO HS 01/29/18 01/29/18 History Cod Liver Oil 1 cap PO DAILY 01/29/18 01/29/18 History Cognium 1 tab PO DAILY 01/29/18 01/29/18 History Cyanocobalamin (Vitamin B-12) 1,000 mcg PO DAILY 01/29/18 01/29/18 History [Vitamin B-12] Hydrochlorothiazide [Hydrodiuril] 25 mg PO DAILY 01/29/18 01/29/18 History Iron(Unknown Dose) 1 tab PO DAILY 01/29/18 01/29/18 History Megestrol [Megace] 400 mg PO BID 01/29/18 01/29/18 History Multivitamins, Thera [Multivitamin 1 tab PO DAILY 01/29/18 01/29/18 History (formulary)] Pyridoxine HCl (Vitamin B6) 100 mg PO DAILY 01/29/18 01/29/18 History [Vitamin B-6] Vitamin B Complex 1 cap PO DAILY 01/29/18 01/29/18 History Vitamin E 100 unit PO DAILY 01/29/18 01/29/18 History Vits A,C,E/Lutein/Minerals 1 tab PO DAILY 01/29/18 01/29/18 History [Ocuvite with Lutein Tablet] Allergies Allergy/AdvReac Type Severity Reaction Status Date / Time No Known Allergies Allergy Verified 01/29/18 17:07 Physical Exam Vitals: Vital Signs Temp Pulse Pulse Resp BP BP Pulse Ox 01/30/18 08:00 96.8 F L 90 18 177/77 94 L 01/30/18 04:00 97.9 F 80 18 151/82 98 01/30/18 00:00 98.1 F 80 18 168/79 98 01/29/18 20:00 97.8 F 88 18 170/84 96 01/29/18 19:34 98.0 F 87 16 176/76 97 01/29/18 19:29 97.8 F 88 18 170/84 96 01/29/18 17:48 83 20 168/72 96 01/29/18 15:46 98.3 F 89 18 152/67 96 Intake and Output 01/29/18 01/30/18 01/30/18 22:59 06:59 14:59 Intake Total 1025 240 Output Total 350 Balance 675 240 Intake: Intake, IV Titration 900 Amount Sodium Chloride 0.9% 1, 900 000 ml @ 100 mls/hr IV . Q10H STA Rx#:[id number] Oral 125 240 Output: Urine 350 Other: # Voids 1 2 Weight 68.6 kg 68.6 kg 68.6 kg - Constitutional General appearance: thin - EENT Eyes: PERRLA ENT: hard of hearing - Neck No JVD Carotids: bilateral: upstroke normal - Respiratory Respiratory: bilateral: rales (Posterior bases) - Cardiovascular Rhythm: regular ankle Peripheral Edema: right: None, 1+, Pitting - Gastrointestinal General gastrointestinal: soft - Integumentary Integumentary: pale - Neurologic Neurologic: CNII-XII intact - Musculoskeletal Musculoskeletal: generalized weakness - Psychiatric Psychiatric: A&O x's 3 Results 01/29/18 16:45 01/29/18 16:45 Cardiac Enzymes 01/29/18 01/29/18 01/29/18 Range/Units 16:45 16:45 22:25 AST 24 (17-59) U/L CK-MB (CK-2) 1.9 (0.0-2.4) ng/mL Troponin I 0.044 H* 0.039 H* (0.000-0.034) ng/mL 01/30/18 Range/Units 05:19 AST (17-59) U/L CK-MB (CK-2) (0.0-2.4) ng/mL Troponin I 0.045 H* (0.000-0.034) ng/mL Coagulation 01/29/18 Range/Units 16:45 PT 10.9 (9.0-12.0) sec APTT 22.9 (22.0-30.0) sec CBC 01/29/18 Range/Units 16:45 WBC 12.8 H (3.8-10.6) k/uL RBC 3.29 L (4.30-5.90) m/uL Hgb 9.0 L D (13.0-17.5) gm/dL Hct 29.3 L (39.0-53.0) % Plt Count 532 H (150-450) k/uL Comprehensive Metabolic Panel 01/29/18 Range/Units 16:45 Sodium 143 (137-145) mmol/L Potassium 3.9 (3.5-5.1) mmol/L Chloride 103 (98-107) mmol/L Carbon Dioxide 27 (22-30) mmol/L BUN 34 H (9-20) mg/dL Creatinine 1.15 (0.66-1.25) mg/dL Glucose 142 H (74-99) mg/dL Calcium 12.7 H (8.4-10.2) mg/dL AST 24 (17-59) U/L ALT 22 (21-72) U/L Alkaline Phosphatase 54 (38-126) U/L Total Protein 5.8 L (6.3-8.2) g/dL Albumin 2.8 L (3.5-5.0) g/dL Current Medications Generic Name Dose Route Start Last Admin Trade Name Jorgeq PRN Reason Stop Dose Admin Ceftriaxone Sodium 1,000 mg 01/31/18 09:00 Rocephin IVP Q24HR KIMBERLEY Furosemide 40 mg 01/29/18 19:00 01/30/18 06:03 Lasix IV 40 mg Q12H KIMBERLEY Administration Heparin Sodium (Porcine) 5,000 unit 01/29/18 21:00 01/30/18 09:51 Heparin SQ 5,000 unit Q12HR KIMBERLEY Administration Insulin Aspart 0 unit 01/30/18 07:30 01/30/18 11:55 Novolog SQ Not Given ACHS [facility] Protocol Levothyroxine Sodium 25 mcg 01/30/18 06:30 01/30/18 06:03 Synthroid PO 25 mcg DAILY@0630 K[facility]BERLEY Administration Lisinopril 10 mg 01/29/18 22:30 01/29/18 23:00 Zestril PO 10 mg HS KIMBERLEY Administration Intake and Output 01/29/18 01/30/18 01/30/18 22:59 06:59 14:59 Intake Total 1025 240 Output Total 350 Balance 675 240 Intake: Intake, IV Titration 900 Amount Sodium Chloride 0.9% 1, 900 000 ml @ 100 mls/hr IV . Q10H STA Rx#:[id number] Oral 125 240 Output: Urine 350 Other: # Voids 1 2 Weight 68.6 kg 68.6 kg 68.6 kg Patient Weight 01/31/18 06:59 Weight 68.6 kg 01/29/18 16:45 01/29/18 16:45 EKG Interpretations (text) Normal sinus mechanism. No ST wave abnormalities Assessment and Plan Assessment: Acute congestive heart failure likely diastolic Acute on chronic anemia Elevated troponins not consistent with acute ischemia status post heart catheterization for 2018 Weakness with frequent falls Diabetes mellitus History CAD status post PCI with stent Hyperlipidemia Hypertension Plan: Continue with current medication regimen. Start IV Lasix 40 mg every 12 hours. Hold aspirin for now. Obtain BNP level, echocardiogram and chest x-ray. Recommend consultation for anemia. Minimally elevated troponins are not consistent with acute ischemia. The patient recently underwent cardiac catheterization and was found to have minimal disease requiring only medical management. Strict I&O and daily weights. We will continue to follow him closely.
--- NOTE | 2018-01-30 14:07 | XR ---
EXAMINATION TYPE: XR chest 2V DATE OF EXAM: 01/30/2018 COMPARISON: 01/07/2018 HISTORY: Shortness of breath TECHNIQUE: Frontal and lateral views of the chest are obtained. FINDINGS: Scattered senescent parenchymal changes noted. Hyperinflation compatible with COPD. Nonspecific prominence of the pulmonary interstitium may reflect interstitial pneumonia with small ef fusions. Residual edema is felt to be less likely although not entirely excluded. Heart size is stable. Mediastinal structures are stable and grossly unremarkable. No evidence for hilar prominence. Degenerative changes dorsal spine. IMPRESSION: 1. Nonspecific prominence of the pulmonary interstitium may reflect interstitial pneumonia with small effusions. Residual edema is felt to be less likely although not entirely excluded.
--- NOTE | 2018-01-30 14:23 | P.CNPUL ---
History of Present Illness Consult date: 01/30/18 Reason for consult: dyspnea, abnormal CXR/CT, other Chief complaint: Heart failure History of present illness: Pulmonary consult dated 01/30/2018 This is a 72-year-old male who was sent to the emergency room for evaluation. He apparently had changes in mental status. He apparently was feeling very weak and fatigue. Just not feeling very well and cannot be very specific. His recent hospital admission for a similar episode where he fell and injured the bridge of his nose and scraped his knees. The nurse taking care of him today no him from his previous admission. His chest x-ray showed what appears to be some mild heart failure. His N-terminal pro BNP was quite elevated. The patient apparently sees from my partners as his primary. Apparently has a history of mild COPD/asthma. For that he takes low-dose Advair. His other medical problems include diabetes and gastroesophageal reflux disease hyperlipidemia hypertension previous myocardial infarction DJD pneumonia hypothyroidism and macular degeneration. The patient was a former smoker. Does not smoke currently. Review of Systems ROS unobtainable: due to mental status (The patient is a very poor historian and no significant history can be obtained from him.) Past Medical History Past Medical History: Asthma, COPD, Diabetes Mellitus, Eye Disorder, GERD/Reflux , Hyperlipidemia, Hypertension, Myocardial Infarction ([place]), Osteoarthritis (OA) , Pneumonia, Thyroid Disorder, Vascular Disorder Additional Past Medical History / Comment(s): per - pt's general overall health /abilty has been deteriorating last few weeks. getting very foregetfull, weak, falls.MACULAR DEGENERATION lt eye, PVD. hx heart murmur,diverticulosis, carotid stenosis, rt foot ulcer, anemia-sees dr castillo, past lt eye/orbital cellulitis and rt hand cellulitis. hiatal hernia.neuropaathy hands/feet. Last Myocardial Infarction Date:: 1996? History of Any Multi-Drug Resistant Organisms: None Reported Past Surgical History: Orthopedic Surgery Additional Past Surgical History / Comment(s): ANA AORTAGRAM WITH ANA STENTS. , LEFT SHOULDER WITH HARDWARE ( HARDWARE REMOVED) , LEFT KNEE ligament repair. colonocopy , FASCIOTOMY OF RIGHT CALF egd w/bx. Past Anesthesia/Blood Transfusion Reactions: No Reported Reaction Past Psychological History: No Psychological Hx Reported Additional Psychological History / Comment(s): . 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 He lives at home with his and there is a dog and a cat in the home. He travels frequently to [place] where his children and grandchildren live Past Drug Use History: None Reported - Past Family History Sister(s) Family Medical History: Cancer Additional Family Medical History / Comment(s): Lung Cancer Mother Family Medical History: No Reported History Additional Family Medical History / Comment(s): from "natural causes" Father Family Medical History: Coronary Artery Disease (CAD), Diabetes Mellitus, Myocardial Infarction ([place]) Medications and Allergies Home Medications Medication Instructions Recorded Confirmed Type Clopidogrel [Plavix] 75 mg PO DAILY 06/22/15 01/29/18 History Fosinopril [Monopril] 10 mg PO HS 05/13/17 01/29/18 History Levothyroxine Sodium 25 mcg PO DAILY 05/13/17 01/29/18 History metFORMIN HCL 1,000 mg PO BID 08/07/17 01/29/18 History Fluticasone/Salmeterol [Advair 1 puff INHALATION RT-BID 12/18/17 01/29/18 History 100-50 Diskus] Omeprazole [PriLOSEC] 20 mg PO AC-BID 12/18/17 01/29/18 History Furosemide [Lasix] 40 mg PO DAILY #30 tablet 01/09/18 01/29/18 Rx Aspirin EC [Ecotrin Low Dose] 81 mg PO HS 01/29/18 01/29/18 History Aspirin EC [Ecotrin] 325 mg PO HS 01/29/18 01/29/18 History Cod Liver Oil 1 cap PO DAILY 01/29/18 01/29/18 History Cognium 1 tab PO DAILY 01/29/18 01/29/18 History Cyanocobalamin (Vitamin B-12) 1,000 mcg PO DAILY 01/29/18 01/29/18 History [Vitamin B-12] Hydrochlorothiazide [Hydrodiuril] 25 mg PO DAILY 01/29/18 01/29/18 History Iron(Unknown Dose) 1 tab PO DAILY 01/29/18 01/29/18 History Megestrol [Megace] 400 mg PO BID 01/29/18 01/29/18 History Multivitamins, Thera [Multivitamin 1 tab PO DAILY 01/29/18 01/29/18 History (formulary)] Pyridoxine HCl (Vitamin B6) 100 mg PO DAILY 01/29/18 01/29/18 History [Vitamin B-6] Vitamin B Complex 1 cap PO DAILY 01/29/18 01/29/18 History Vitamin E 100 unit PO DAILY 01/29/18 01/29/18 History Vits A,C,E/Lutein/Minerals 1 tab PO DAILY 01/29/18 01/29/18 History [Ocuvite with Lutein Tablet] Allergies Allergy/AdvReac Type Severity Reaction Status Date / Time No Known Allergies Allergy Verified 01/29/18 17:07 Physical Exam Osteopathic Statement: *. No significant issues noted on an osteopathic structural exam other than those noted in the History and Physical/Consult. Vitals: Vital Signs Temp Pulse Pulse Resp BP BP Pulse Ox 01/30/18 12:00 97.7 F 105 H 18 164/79 94 L 01/30/18 08:00 96.8 F L 90 18 177/77 94 L 01/30/18 04:00 97.9 F 80 18 151/82 98 01/30/18 00:00 98.1 F 80 18 168/79 98 01/29/18 20:00 97.8 F 88 18 170/84 96 01/29/18 19:34 98.0 F 87 16 176/76 97 01/29/18 19:29 97.8 F 88 18 170/84 96 01/29/18 17:48 83 20 168/72 96 01/29/18 15:46 98.3 F 89 18 152/67 96 Intake and Output 01/29/18 01/30/18 01/30/18 22:59 06:59 14:59 Intake Total 1025 780 Output Total 350 Balance 675 780 Intake: Intake, IV Titration 900 100 Amount Sodium Chloride 0.9% 1, 900 000 ml @ 100 mls/hr IV . Q10H STA Rx#:[id number] cefTRIAXone 1,000 mg In 100 Sodium Chloride 0.9% 50 ml @ 100 mls/hr IVPB Q24HR KIMBERLEY Rx#:[id number] Oral 125 680 Output: Urine 350 Other: # Voids 1 2 Weight 68.6 kg 68.6 kg 68.6 kg No acute distress, oriented 3. Nasal O2 in place. HEENT examination is grossly unremarkable. Mucous membranes are moist. No oral lesions. A small scab is noted on the bridge of his nose. Neck supple. Full range of motion. No adenopathy thyromegaly or neck vein distention. Cardiovascular examination reveals regular rhythm rate. S1-S2 normal. No S3 or S4. No discernible murmur noted. Heart sounds are distant. Lungs reveal a few scattered crackles. Breath sounds equal. He does not take deep breaths. No rhonchi or wheezes noted. Abdomen soft bowel sounds are heard. No masses or tenderness. Extremities are intact. Slight edema of the right lower extremity noted. Skin is without rash or lesion. Neurologic examination is difficult to us assess. Results - Laboratory Findings CBC and BMP: 01/29/18 16:45 01/29/18 16:45 PT/INR, D-dimer PT 10.9 sec (9.0-12.0) 01/29/18 16:45 INR 1.1 (<1.2) 01/29/18 16:45 Abnormal lab findings: Abnormal Labs 01/29/18 01/29/18 01/29/18 16:45 16:45 16:45 WBC 12.8 H RBC 3.29 L Hgb 9.0 L D Hct 29.3 L MCHC 30.9 L RDW 17.6 H Plt Count 532 H Neutrophils # 11.4 H Lymphocytes # 0.8 L BUN 34 H Glucose 142 H POC Glucose (mg/dL) Calcium 12.7 H Ionized Calcium Heidi Total Creatine Kinase 29 L Troponin I 0.044 H* Total Protein 5.8 L Albumin 2.8 L Urine Protein Urine WBC Urine Bacteria Urine Mucus Urine Yeast (Budding) 01/29/18 01/29/18 01/29/18 17:00 20:49 22:25 WBC RBC Hgb Hct MCHC RDW Plt Count Neutrophils # Lymphocytes # BUN Glucose POC Glucose (mg/dL) 111 H Calcium Ionized Calcium Heidi Total Creatine Kinase Troponin I 0.039 H* Total Protein Albumin Urine Protein Trace H Urine WBC 6 H Urine Bacteria Rare H Urine Mucus Rare H Urine Yeast (Budding) Moderate H 01/30/18 01/30/18 01/30/18 05:19 05:19 06:00 WBC RBC Hgb Hct MCHC RDW Plt Count Neutrophils # Lymphocytes # BUN Glucose POC Glucose (mg/dL) 105 H Calcium Ionized Calcium Heidi 6.9 H* Total Creatine Kinase Troponin I 0.045 H* Total Protein Albumin Urine Protein Urine WBC Urine Bacteria Urine Mucus Urine Yeast (Budding) 01/30/18 11:27 WBC RBC Hgb Hct MCHC RDW Plt Count Neutrophils # Lymphocytes # BUN Glucose POC Glucose (mg/dL) 110 H Calcium Ionized Calcium Heidi Total Creatine Kinase Troponin I Total Protein Albumin Urine Protein Urine WBC Urine Bacteria Urine Mucus Urine Yeast (Budding) - Diagnostic Findings Chest x-ray: image reviewed (Labs x-rays and medications are reviewed.) Assessment and Plan Assessment: Assessment Mental status changes, more likely chronic than acute. History of mild COPD/asthma, not active at this time. Mild CHF History of hypothyroidism History of diabetes History of gastroesophageal reflux disease Hyperlipidemia by history History of hypertension Previous history of myocardial infarction DJD Macular degeneration History of anemia Plan: Plan 01/30/2018 The patient primarily has mental status changes which is a mention above are more likely chronic as opposed to acute. The patient's chest x-ray and lab are consistent with mild interstitial edema. His COPD/asthma is not currently active and the only thing he takes that his low dose Advair. He does see my partner is her primary. We'll continue to follow. Labs x-rays a medications are all reviewed. Time with Patient: Greater than 30
[2018-01-30 14:53] LABS: Hemoglobin A1C 5.6 % (4.0-6.0)
--- NOTE | 2018-01-30 15:30 | P.HPIM ---
History of Present Illness H&P Date: 01/30/18 Chief Complaint: Shortness of breath and abdominal discomfort Patient is 72-year-old male with a known history of COPD, coronary artery disease with history of stent placement, CHF with diastolic dysfunction, hypertension, hyperlipidemia, diabetes type 2 and history of SD and other multiple medical problems came to ER with complaints of abdominal discomfort and weakness. He was recently hospitalized for congestive heart failure and was treated and released. The patient underwent cardiac catheterization in December 2017 that showed intermediate disease of the RCA and left circumflex. It was recommended that he continue with medical management. Patient denies any chest discomfort. Serial troponins are negative. His hemoglobin is 9, his hemoglobin last admission was above 10. He denies any dark or bright red blood per rectum. The patient does have unilateral swelling to the right lower extremity, venous Doppler was negative for DVT. Patient does have chronic foot ulcer and is on follow with Dr. Dixon as an outpatient. He has been up ambulating and does have shortness of breath but does not describe any worsening. He seen sitting up in bed he's in no acute distress. Chest x-ray showed nonspecific prominence of the pulmonary interstitium may reflect interstitial pneumonia with small effusions. Residual edema is felt to be less likely although not entirely excluded. BNP 11 500 Troponin 0.044, 0.039, 0.045 Acute abdominal series on admission showed advanced interstitial phase pulmonary edema and colonic fecal impaction. Patient did have involvement while in the ER. And relief of abdominal discomfort. Review of Systems Constitutional: Patient denies any fever or chills . No generalized weakness or weight loss. Abdomen: Patient denied nausea vomiting and diarrhea. Patient does have constipation and abdominal discomfort on admission Cardiovascular: Patient denied any worsening chest pain or shortness of breath. Right lower extremity swelling Respiratory: patient denied any cough is from production. No shortness of breath Neurologic: Patient denied any numbness or tingling headache. Musculoskeletal: Patient denies any complaints of joint swelling or deformity. Skin: Negative Psychiatric: Negative Endocrine: No heat or cold intolerance. No recent weight gain. Genitourinary: No dysuria or hematuria. All other 14 point ROS negative except the above Past Medical History Past Medical History: Asthma, COPD, Diabetes Mellitus, Eye Disorder, GERD/Reflux , Hyperlipidemia, Hypertension, Myocardial Infarction (SD), Osteoarthritis (OA) , Pneumonia, Thyroid Disorder, Vascular Disorder Additional Past Medical History / Comment(s): per - pt's general overall health /abilty has been deteriorating last few weeks. getting very foregetfull, weak, falls.MACULAR DEGENERATION lt eye, PVD. hx heart murmur,diverticulosis, carotid stenosis, rt foot ulcer, anemia-sees dr castillo, past lt eye/orbital cellulitis and rt hand cellulitis. hiatal hernia.neuropaathy hands/feet. Last Myocardial Infarction Date:: 1996? History of Any Multi-Drug Resistant Organisms: None Reported Past Surgical History: Orthopedic Surgery Additional Past Surgical History / Comment(s): ANA AORTAGRAM WITH ANA STENTS. , LEFT SHOULDER WITH HARDWARE ( HARDWARE REMOVED) , LEFT KNEE ligament repair. colonocopy , FASCIOTOMY OF RIGHT CALF egd w/bx. Past Anesthesia/Blood Transfusion Reactions: No Reported Reaction Past Psychological History: No Psychological Hx Reported Additional Psychological History / Comment(s): . 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 He lives at home with his and there is a dog and a cat in the home. He travels frequently to [place] where his children and grandchildren live Past Drug Use History: None Reported - Past Family History Sister(s) Family Medical History: Cancer Additional Family Medical History / Comment(s): Lung Cancer Mother Family Medical History: No Reported History Additional Family Medical History / Comment(s): from "natural causes" Father Family Medical History: Coronary Artery Disease (CAD), Diabetes Mellitus, Myocardial Infarction (SD) Medications and Allergies Home Medications Medication Instructions Recorded Confirmed Type Clopidogrel [Plavix] 75 mg PO DAILY 06/22/15 01/29/18 History Fosinopril [Monopril] 10 mg PO HS 05/13/17 01/29/18 History Levothyroxine Sodium 25 mcg PO DAILY 05/13/17 01/29/18 History metFORMIN HCL 1,000 mg PO BID 08/07/17 01/29/18 History Fluticasone/Salmeterol [Advair 1 puff INHALATION RT-BID 12/18/17 01/29/18 History 100-50 Diskus] Omeprazole [PriLOSEC] 20 mg PO AC-BID 12/18/17 01/29/18 History Furosemide [Lasix] 40 mg PO DAILY #30 tablet 01/09/18 01/29/18 Rx Aspirin EC [Ecotrin Low Dose] 81 mg PO HS 01/29/18 01/29/18 History Aspirin EC [Ecotrin] 325 mg PO HS 01/29/18 01/29/18 History Cod Liver Oil 1 cap PO DAILY 01/29/18 01/29/18 History Cognium 1 tab PO DAILY 01/29/18 01/29/18 History Cyanocobalamin (Vitamin B-12) 1,000 mcg PO DAILY 01/29/18 01/29/18 History [Vitamin B-12] Hydrochlorothiazide [Hydrodiuril] 25 mg PO DAILY 01/29/18 01/29/18 History Iron(Unknown Dose) 1 tab PO DAILY 01/29/18 01/29/18 History Megestrol [Megace] 400 mg PO BID 01/29/18 01/29/18 History Multivitamins, Thera [Multivitamin 1 tab PO DAILY 01/29/18 01/29/18 History (formulary)] Pyridoxine HCl (Vitamin B6) 100 mg PO DAILY 01/29/18 01/29/18 History [Vitamin B-6] Vitamin B Complex 1 cap PO DAILY 01/29/18 01/29/18 History Vitamin E 100 unit PO DAILY 01/29/18 01/29/18 History Vits A,C,E/Lutein/Minerals 1 tab PO DAILY 01/29/18 01/29/18 History [Ocuvite with Lutein Tablet] Allergies Allergy/AdvReac Type Severity Reaction Status Date / Time No Known Allergies Allergy Verified 01/29/18 17:07 Physical Exam Vitals: Vital Signs Temp Pulse Pulse Resp BP BP Pulse Ox 01/30/18 08:00 96.8 F L 90 18 177/77 94 L 01/30/18 04:00 97.9 F 80 18 151/82 98 01/30/18 00:00 98.1 F 80 18 168/79 98 01/29/18 20:00 97.8 F 88 18 170/84 96 01/29/18 19:34 98.0 F 87 16 176/76 97 01/29/18 19:29 97.8 F 88 18 170/84 96 01/29/18 17:48 83 20 168/72 96 01/29/18 15:46 98.3 F 89 18 152/67 96 Intake and Output 01/29/18 01/30/18 01/30/18 22:59 06:59 14:59 Intake Total 1025 240 Output Total 350 Balance 675 240 Intake: Intake, IV Titration 900 Amount Sodium Chloride 0.9% 1, 900 000 ml @ 100 mls/hr IV . Q10H STA Rx#:[id number] Oral 125 240 Output: Urine 350 Other: # Voids 1 2 Weight 68.6 kg 68.6 kg 68.6 kg PHYSICAL EXAMINATION: Patient is lying in the bed comfortably, no acute distress, awake alert and oriented. But poor historian. HEENT: Normocephalic. Neck is supple. Pupils reactive. Nostrils clear. Oral cavity is moist. Ears reveal no drainage. Neck reveals no JVD, carotid bruits, or thyromegaly. CHEST EXAMINATION: Trachea is central. Symmetrical expansion. Bibasilar crackles and decreased breath sounds. No wheezing CARDIAC: Normal S1, S2 with no gallops. No murmurs ABDOMEN: Soft. Nontender. Bowel sounds normal. No organomegaly. No abdominal bruits. Extremities: Right lower extremities 2+ edema. Right foot ulcer is bandaged.. No clubbing or cyanosis Neurologically awake, alert, oriented x3 with well-coordinated movements. No focal deficits noted Skin: No rash or skin lesions. Psychiatric: Cooperative. Could not be shows a completely Musculoskeletal: No joint swelling or deformity. Normal range of motion. Results CBC & Chem 7: 01/29/18 16:45 01/29/18 16:45 Labs: Abnormal Lab Results - Last 24 Hours (Table) 01/29/18 01/29/18 01/29/18 Range/Units 16:45 16:45 16:45 WBC 12.8 H (3.8-10.6) k/uL RBC 3.29 L (4.30-5.90) m/uL Hgb 9.0 L D (13.0-17.5) gm/dL Hct 29.3 L (39.0-53.0) % MCHC 30.9 L (31.0-37.0) g/dL RDW 17.6 H (11.5-15.5) % Plt Count 532 H (150-450) k/uL Neutrophils # 11.4 H (1.3-7.7) k/uL Lymphocytes # 0.8 L (1.0-4.8) k/uL BUN 34 H (9-20) mg/dL Glucose 142 H (74-99) mg/dL POC Glucose (mg/dL) (75-99) mg/dL Calcium 12.7 H (8.4-10.2) mg/dL Total Creatine Kinase 29 L (55-170) U/L Troponin I 0.044 H* (0.000-0.034) ng/mL Total Protein 5.8 L (6.3-8.2) g/dL Albumin 2.8 L (3.5-5.0) g/dL Urine Protein (Negative) Urine WBC (0-5) /hpf Urine Bacteria (None) /hpf Urine Mucus (None) /hpf Urine Yeast (Budding) (None) /hpf 01/29/18 01/29/18 01/29/18 Range/Units 17:00 20:49 22:25 WBC (3.8-10.6) k/uL RBC (4.30-5.90) m/uL Hgb (13.0-17.5) gm/dL Hct (39.0-53.0) % MCHC (31.0-37.0) g/dL RDW (11.5-15.5) % Plt Count (150-450) k/uL Neutrophils # (1.3-7.7) k/uL Lymphocytes # (1.0-4.8) k/uL BUN (9-20) mg/dL Glucose (74-99) mg/dL POC Glucose (mg/dL) 111 H (75-99) mg/dL Calcium (8.4-10.2) mg/dL Total Creatine Kinase (55-170) U/L Troponin I 0.039 H* (0.000-0.034) ng/mL Total Protein (6.3-8.2) g/dL Albumin (3.5-5.0) g/dL Urine Protein Trace H (Negative) Urine WBC 6 H (0-5) /hpf Urine Bacteria Rare H (None) /hpf Urine Mucus Rare H (None) /hpf Urine Yeast (Budding) Moderate H (None) /hpf 01/30/18 01/30/18 01/30/18 Range/Units 05:19 06:00 11:27 WBC (3.8-10.6) k/uL RBC (4.30-5.90) m/uL Hgb (13.0-17.5) gm/dL Hct (39.0-53.0) % MCHC (31.0-37.0) g/dL RDW (11.5-15.5) % Plt Count (150-450) k/uL Neutrophils # (1.3-7.7) k/uL Lymphocytes # (1.0-4.8) k/uL BUN (9-20) mg/dL Glucose (74-99) mg/dL POC Glucose (mg/dL) 105 H 110 H (75-99) mg/dL Calcium (8.4-10.2) mg/dL Total Creatine Kinase (55-170) U/L Troponin I 0.045 H* (0.000-0.034) ng/mL Total Protein (6.3-8.2) g/dL Albumin (3.5-5.0) g/dL Urine Protein (Negative) Urine WBC (0-5) /hpf Urine Bacteria (None) /hpf Urine Mucus (None) /hpf Urine Yeast (Budding) (None) /hpf Microbiology - Last 24 Hours (Table) 01/29/18 17:00 Urine Culture - Preliminary Urine,Clean Catch Thrombosis Risk Factor Assmnt - Choose All That Apply Each Factor Represents 1 point: Swollen legs (current) Other Risk Factors: Yes Each Risk Factor Represents 2 Points: Age 61-74 years Other congenital or acquired thrombophilia - If yes, enter type in comment: No Thrombosis Risk Factor Assessment Total Risk Factor Score: 3 Thrombosis Risk Factor Assessment Level: Moderate Risk Assessment and Plan Assessment: Mild Acute CHF likely diastolic dysfunction. Elevated BNP and interstitial edema COPD/asthma stable Elevated troponin level. Unlikely ACS. Patient had recent cardiac catheterization in December 2017 History of coronary artery disease status post stent placement previously Generalized weakness and frequent falls Abdominal discomfort due to colonic fecal impaction resolved with bowel movement. Hypothyroidism Diabetes type 2 GERD Hypertension Degenerative joint disease Chronic anemia Right foot ulcer possible diabetic DVT prophylaxis heparin subcu Plan: Patient will be continued on aspirin Plavix and add metoprolol.. Continue with IV diuresis with Lasix. Continue the breathing treatments and Advair. Cardiology and pulmonary is following. Continue with the home vitamins and Megace. Encourage oral intake and PTOT. Continue antibiotics and ID was consulted. Medical management and further recommendations based on the clinical course. Prognosis is guarded with multiple medical problems and comorbid conditions. Time with Patient: Greater than 30
[2018-01-30] MEDS: MAGNESIUM HYDROXIDE 2,400 MG/10 ML CUP PO PRN (15:42)
[2018-01-30 16:13] LABS: Glucose,Whole Blood 109 mg/dL (75-99)
[2018-01-30] MEDS: CALCITONIN INJ 200 UNIT/ML (MDV) VIAL SUBDERMAL SCH (20:48)
[2018-01-30] MEDS: LISINOPRIL 10 MG TAB PO SCH (20:57)
[2018-01-30] MEDS: METOPROLOL TARTRATE 25 MG TAB PO SCH (20:58)
[2018-01-30] MEDS: MEGESTROL 400 MG/10 ML CUP PO SCH (20:58)
[2018-01-30] MEDS: ASPIRIN 81 MG PO SCH (20:58)
[2018-01-30] MEDS: HALOPERIDOL 1 MG TAB PO PRN (21:09)
[2018-01-30 21:10] LABS: Glucose,Whole Blood 142 mg/dL (75-99)
--- NOTE | 2018-01-30 23:54 | P.CONS ---
History of Present Illness - Reason for Consult Consult date: 01/30/18 - Chief Complaint altered mental status - History of Present Illness 72-year-old male recently presented to Hospital status post fall at home. He had apparently had a slip and fall in his bathroom, relates that he was on the tile a great difficulty trying to get up off the floor. Resulting in the injury to the bridge of his nose, his forehead is hands minimally into his bilateral lower extremities especially at the knees. He been recently seen in the office were without evidence of acute worsening of the right foot plantar ulceration. He had had some treatment for the left foot diabetic ulceration occluded antibiotic therapy. And was showing some improvement. However when he presented to the office there was a marked worsening of that ulceration and constantly he was started on antibiotic therapy and local wound care with medical when he was initiated. Patient then presented to hospital with falls, significant weakness dehydration and chest pain. 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 He eventually improved enough to be discharged home. He is followed in the outpatient setting for the right plantar ulceration that was responding quite well to the therahoney dressing. Is related that the patient became very disoriented and very weak. Family was very concerned and he was brought to hospital. With the ulceration the infectious diseases consultation was requested. It is noted at the time of the consult the patient had evidence of significant hypercalcemia. The patient has had a trend for this just very recently. He's also had difficulties with elevated inflammatory parameters and workup for autoimmune disease has been negative. However now with a markedly elevated calcium will also evaluate for sarcoidosis. Review of Systems Constitutional: Reports weight loss, Denies chills, Denies fever, Denies weakness Eyes: left discharge (clear), denies blurred vision, denies decreased vision, denies pain, denies loss of vision Ears, nose, mouth and throat: Denies headache, Denies mouth pain, Denies sore throat Cardiovascular: Denies chest pain, Denies edema, Denies leg edema, Denies lightheadedness, Denies shortness of breath, Denies syncope Respiratory: Denies cough, Denies cough with sputum, Denies dyspnea, Denies excessive sputum, Denies hemoptysis, Denies home oxygen Gastrointestinal: Denies abdominal pain, Denies diarrhea, Denies nausea, Denies vomiting Genitourinary: Denies dysuria Musculoskeletal: Denies myalgias Integumentary: Has had recent multiple difficulties with the skin including the testicular infection and the diabetic foot infection which seems to be worse and now has the multiple abrasions from his fall Neurological: weakness with recent falls and as per HPI confusion which is now improving Psychiatric: Denies anxiety, Denies depression Endocrine: Reports fatigue and weight loss Past Medical History Past Medical History: Asthma, COPD, Diabetes Mellitus, Eye Disorder, GERD/Reflux , Hyperlipidemia, Hypertension, Myocardial Infarction ([place]), Osteoarthritis (OA) , Pneumonia, Thyroid Disorder, Vascular Disorder Additional Past Medical History / Comment(s): per - pt's general overall health /abilty has been deteriorating last few weeks. getting very foregetfull, weak, falls.MACULAR DEGENERATION lt eye, PVD. hx heart murmur,diverticulosis, carotid stenosis, rt foot ulcer, anemia-sees dr castillo, past lt eye/orbital cellulitis and rt hand cellulitis. hiatal hernia.neuropaathy hands/feet. Last Myocardial Infarction Date:: 1996? History of Any Multi-Drug Resistant Organisms: None Reported Past Surgical History: Orthopedic Surgery Additional Past Surgical History / Comment(s): ANA AORTAGRAM WITH ANA STENTS. , LEFT SHOULDER WITH HARDWARE ( HARDWARE REMOVED) , LEFT KNEE ligament repair. colonocopy , FASCIOTOMY OF RIGHT CALF egd w/bx. Past Anesthesia/Blood Transfusion Reactions: No Reported Reaction Past Psychological History: No Psychological Hx Reported Additional Psychological History / Comment(s): . 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 He lives at home with his and there is a dog and a cat in the home. He travels frequently to [place] where his children and grandchildren live Past Drug Use History: None Reported - Past Family History Sister(s) Family Medical History: Cancer Additional Family Medical History / Comment(s): Lung Cancer Mother Family Medical History: No Reported History Additional Family Medical History / Comment(s): from "natural causes" Father Family Medical History: Coronary Artery Disease (CAD), Diabetes Mellitus, Myocardial Infarction ([place]) Medications and Allergies Home Medications and Allergies Comment(s): Current Medications Aspirin (Aspirin) 81 mg PO HS [facility] Last Admin: 01/30/18 20:58 Dose: 81 mg Calcitonin Meridian (Miacalcin) 200 unit SUBDERMAL DAILY [facility] Last Admin: 01/30/18 20:48 Dose: 200 unit Ceftriaxone Sodium (Rocephin) 1,000 mg IVP Q24HR [facility] Clopidogrel Bisulfate (Plavix) 75 mg PO DAILY [facility] Cyanocobalamin (Vitamin B-12) 1,000 mcg PO DAILY [facility] Furosemide (Lasix) 40 mg IV Q12H [facility] Last Admin: 01/30/18 20:57 Dose: 40 mg Haloperidol (Haldol) 1 mg PO Q6H PRN PRN Reason: Agitation Last Admin: 01/30/18 21:09 Dose: 1 mg Heparin Sodium (Porcine) (Heparin) 5,000 unit SQ Q12HR [facility] Last Admin: 01/30/18 20:57 Dose: 5,000 unit Insulin Aspart (Novolog) 0 unit SQ ACHS [facility] PRN Reason: Protocol Last Admin: 01/30/18 20:58 Dose: Not Given Levothyroxine Sodium (Synthroid) 25 mcg PO DAILY@0630 [facility] Last Admin: 01/30/18 06:03 Dose: 25 mcg Lisinopril (Zestril) 10 [address] [facility] Last Admin: 01/30/18 20:57 Dose: 10 mg Magnesium Hydroxide (Milk Of Magnesia) 2,400 mg PO DAILY PRN PRN Reason: Constipation Last Admin: 01/30/18 15:42 Dose: 2,400 mg Megestrol Acetate (Megace) 400 mg PO BID [facility] Last Admin: 01/30/18 20:58 Dose: 400 mg Metoprolol Tartrate (Lopressor) 25 mg PO BID [facility] Last Admin: 01/30/18 20:58 Dose: 25 mg Multivitamins (Theragran) 1 each PO DAILY@1200 [facility] Multivitamins/Minerals (Ivite) 1 each PO DAILY [facility] Pantoprazole Sodium (Protonix) 40 mg PO AC-BRKFST [facility] Pyridoxine HCl (Vitamin B-6) 100 mg PO DAILY [facility] Vitamin B Complex/Vit C/Vit E/Zinc (Z-Bec) 1 each PO DAILY [facility] Home Medications Medication Instructions Recorded Confirmed Type Clopidogrel [Plavix] 75 mg PO DAILY 06/22/15 01/29/18 History Fosinopril [Monopril] 10 mg PO HS 05/13/17 01/29/18 History Levothyroxine Sodium 25 mcg PO DAILY 05/13/17 01/29/18 History metFORMIN HCL 1,000 mg PO BID 08/07/17 01/29/18 History Fluticasone/Salmeterol [Advair 1 puff INHALATION RT-BID 12/18/17 01/29/18 History 100-50 Diskus] Omeprazole [PriLOSEC] 20 mg PO AC-BID 12/18/17 01/29/18 History Furosemide [Lasix] 40 mg PO DAILY #30 tablet 01/09/18 01/29/18 Rx Aspirin EC [Ecotrin Low Dose] 81 mg PO HS 01/29/18 01/29/18 History Aspirin EC [Ecotrin] 325 mg PO HS 01/29/18 01/29/18 History Cod Liver Oil 1 cap PO DAILY 01/29/18 01/29/18 History Cognium 1 tab PO DAILY 01/29/18 01/29/18 History Cyanocobalamin (Vitamin B-12) 1,000 mcg PO DAILY 01/29/18 01/29/18 History [Vitamin B-12] Hydrochlorothiazide [Hydrodiuril] 25 mg PO DAILY 01/29/18 01/29/18 History Iron(Unknown Dose) 1 tab PO DAILY 01/29/18 01/29/18 History Megestrol [Megace] 400 mg PO BID 01/29/18 01/29/18 History Multivitamins, Thera [Multivitamin 1 tab PO DAILY 01/29/18 01/29/18 History (formulary)] Pyridoxine HCl (Vitamin B6) 100 mg PO DAILY 01/29/18 01/29/18 History [Vitamin B-6] Vitamin B Complex 1 cap PO DAILY 01/29/18 01/29/18 History Vitamin E 100 unit PO DAILY 01/29/18 01/29/18 History Vits A,C,E/Lutein/Minerals 1 tab PO DAILY 01/29/18 01/29/18 History [Ocuvite with Lutein Tablet] Allergies Allergy/AdvReac Type Severity Reaction Status Date / Time No Known Allergies Allergy Verified 01/29/18 17:07 Physical Exam Vitals: Vital Signs Temp Pulse Resp BP Pulse Ox 01/30/18 20:00 98.3 F 81 18 187/86 97 01/30/18 15:40 98.4 F 87 18 186/83 94 L 01/30/18 12:00 97.7 F 105 H 18 164/79 94 L 01/30/18 08:00 96.8 F L 90 18 177/77 94 L 01/30/18 04:00 97.9 F 80 18 151/82 98 01/30/18 00:00 98.1 F 80 18 168/79 98 Intake and Output 01/30/18 01/30/18 01/31/18 14:59 22:59 06:59 Intake Total 780 315 Output Total 450 Balance 780 -135 Intake: Intake, IV Titration 100 Amount cefTRIAXone 1,000 mg In 100 Sodium Chloride 0.9% 50 ml @ 100 mls/hr IVPB Q24HR [facility] Rx#:[id number] Oral 680 315 Output: Urine 450 Other: Weight 68.6 kg 72-year-old male who is consuming more week until appearance the last time he was seen in the office, also has some confusion. HEENT: Anicteric conjunctiva are pink and moist nasal mucosa grossly intact without significant lesions, there is no thrush. Patient is evidence of the injury to the bridge of his nose with an eschar in place, and has the abrasion on his forehead also besides appear to have no jenny purulence and no drainage minimal surrounding erythema Neck: The neck is supple without significant lymphadenopathy or thyromegaly. Lungs: Symmetrical air entry is noted few expiratory wheezes are heard few basilar crackles are heard. No dullness or egophony is noted. Heart: Irregular with an audible S1 and S2 soft S4 no distinct murmur click or rub PMI was nondisplaced Abdomen: Positive bowel sounds soft and nontender without palpable masses or organomegaly. There was no guarding or rebound. Extremities: Patient is evidence of the recent fall he has evidence of some irritation to his hands but no jenny open ulcerations in the IV site appears to be intact. The bilateral reduction ratio evidence of the abrasions of bilateral knees, has evidence of abrasion to his toes. And then on the right foot plantar has evidence of the diabetic foot ulceration that appears to have penetration through the fat layer, there is some minimal erythema but no purulent drainage at the site. Please refer to the nursing documentation for the photography of these ulcerations and injuries Neuro: The patient is awake and alert he states he is at [facility] I' m Dr. Dixon and its 1989. no gross focal sensory motor deficits noted. Results CBC & Chem 7: 01/29/18 16:45 01/29/18 16:45 Labs: Abnormal Lab Results - Last 24 Hours (Table) 01/30/18 01/30/18 01/30/18 Range/Units 05:19 05:19 06:00 POC Glucose (mg/dL) 105 H (75-99) mg/dL Ionized Calcium Heidi 6.9 H* (4.5-5.3) mg/dL Troponin I 0.045 H* (0.000-0.034) ng/mL 01/30/18 01/30/18 01/30/18 Range/Units 11:27 16:12 20:57 POC Glucose (mg/dL) 110 H 109 H 142 H (75-99) mg/dL Ionized Calcium Heidi (4.5-5.3) mg/dL Troponin I (0.000-0.034) ng/mL Microbiology - Last 24 Hours (Table) 01/29/18 17:00 Urine Culture - Final Urine,Clean Catch Laboratory Results WBC 12.8 k/uL (3.8-10.6) H 01/29/18 16:45 RBC 3.29 m/uL (4.30-5.90) L 01/29/18 16:45 Hgb 9.0 gm/dL (13.0-17.5) L D 01/29/18 16:45 Hct 29.3 % (39.0-53.0) L 01/29/18 16:45 MCV 88.9 fL (80.0-100.0) 01/29/18 16:45 MCH 27.5 pg (25.0-35.0) 01/29/18 16:45 MCHC 30.9 g/dL (31.0-37.0) L 01/29/18 16:45 RDW 17.6 % (11.5-15.5) H 01/29/18 16:45 Plt Count 532 k/uL (150-450) H 01/29/18 16:45 Neutrophils % 89 % 01/29/18 16:45 Lymphocytes % 6 % 01/29/18 16:45 Monocytes % 3 % 01/29/18 16:45 Eosinophils % 2 % 01/29/18 16:45 Basophils % 0 % 01/29/18 16:45 Neutrophils # 11.4 k/uL (1.3-7.7) H 01/29/18 16:45 Lymphocytes # 0.8 k/uL (1.0-4.8) L 01/29/18 16:45 Monocytes # 0.3 k/uL (0-1.0) 01/29/18 16:45 Eosinophils # 0.2 k/uL (0-0.7) 01/29/18 16:45 Basophils # 0.0 k/uL (0-0.2) 01/29/18 16:45 Anisocytosis Slight 01/29/18 16:45 PT 10.9 sec (9.0-12.0) 01/29/18 16:45 INR 1.1 (<1.2) 01/29/18 16:45 APTT 22.9 sec (22.0-30.0) 01/29/18 16:45 Sodium 143 mmol/L (137-145) 01/29/18 16:45 Potassium 3.9 mmol/L (3.5-5.1) 01/29/18 16:45 Chloride 103 mmol/L (98-107) 01/29/18 16:45 Carbon Dioxide 27 mmol/L (22-30) 01/29/18 16:45 Anion Gap 13 mmol/L 01/29/18 16:45 BUN 34 mg/dL (9-20) H 01/29/18 16:45 Creatinine 1.15 mg/dL (0.66-1.25) 01/29/18 16:45 Est GFR (CKD-EPI)AfAm 73 (>60 ml/min/1.73 sqM) 01/29/18 16:45 Est GFR (CKD-EPI)NonAf 63 (>60 ml/min/1.73 sqM) 01/29/18 16:45 Glucose 142 mg/dL (74-99) H 01/29/18 16:45 POC Glucose (mg/dL) 142 mg/dL (75-99) H 05/05/18 20:57 POC Glu Wire Mesh Filter Fabricator ID Brianna, Araceli 01/30/18 20:[address] Glu mg/dL 114 01/30/18 05:19 Hemoglobin A1c 5.6 % (4.0-6.0) 01/30/18 05:19 Calcium 12.7 mg/dL (8.4-10.2) H 01/29/18 16:45 Ionized Calcium Heidi 6.9 mg/dL (4.5-5.3) H* 01/30/18 05:19 Phosphorus 4.1 mg/dL (2.5-4.5) 01/29/18 16:45 Magnesium 1.8 mg/dL (1.6-2.3) 01/29/18 16:45 Total Bilirubin 0.3 mg/dL (0.2-1.3) 01/29/18 16:45 AST 24 U/L (17-59) 01/29/18 16:45 ALT 22 U/L (21-72) 01/29/18 16:45 Alkaline Phosphatase 54 U/L (38-126) 01/29/18 16:45 Total Creatine Kinase 29 U/L (55-170) L 01/29/18 16:45 CK-MB (CK-2) 1.9 ng/mL (0.0-2.4) 01/29/18 16:45 CK-MB (CK-2) Rel Index 6.6 01/29/18 16:45 Troponin I 0.045 ng/mL (0.000-0.034) H* 01/30/18 05:19 NT-Pro-B Natriuret Pep 87166 pg/mL 01/30/18 05:19 Total Protein 5.8 g/dL (6.3-8.2) L 01/29/18 16:45 Albumin 2.8 g/dL (3.5-5.0) L 01/29/18 16:45 Urine Color Light Yellow 01/29/18 17:00 Urine Appearance Cloudy (Clear) 01/29/18 17:00 Urine pH 6.5 (5.0-8.0) 01/29/18 17:00 Ur Specific [place] 1.010 (1.001-1.035) 01/29/18 17:00 Urine Protein Trace (Negative) H 01/29/18 17:00 Urine Glucose (UA) Negative (Negative) 01/29/18 17:00 Urine Ketones Negative (Negative) 01/29/18 17:00 Urine Blood Negative (Negative) 01/29/18 17:00 Urine Nitrite Negative (Negative) 01/29/18 17:00 Urine Bilirubin Negative (Negative) 01/29/18 17:00 Urine Urobilinogen <2.0 mg/dL (<2.0) 01/29/18 17:00 Ur Leukocyte Esterase Negative (Negative) 01/29/18 17:00 Urine RBC 4 /hpf (0-5) 01/29/18 17:00 Urine WBC 6 /hpf (0-5) H 01/29/18 17:00 Urine Bacteria Rare /hpf (None) H 01/29/18 17:00 Urine Mucus Rare /hpf (None) H 01/29/18 17:00 Urine Yeast (Budding) Moderate /hpf (None) H 01/29/18 17:00 Microbiology 01/29/18 17:00 Urine,Clean Catch Urine Culture - Final Chest x-ray: report reviewed (interstitial disease) Assessment and Plan (1) Altered mental status Narrative/Plan: 72-year-old male has had recent hospitalizations with increasing weakness and falls. He has some known underlying pulmonary disease. However now comes in with worsening confusion and some shortness of breath. His chest x -ray shows evidence of some interstitial changes potentially worsen the last check. It appears since his admission his confusion is improved. However he has had several recent hospitalizations with concerns to underlying disease process given the elevated inflammatory parameters, his significant weight loss and declining status. He's had multiple evaluations have included CT scans of the chest abdomen and pelvis and no brain without significant abnormalities except the interstitial disease within his lungs. The patient now has evidence of the markedly elevated calcium and ionized calcium. He has heart failure and there are some limits time which hydration can be given. In with this calcitonin will be given in attempts to reduce his calcium and improve his status. With the pulmonary disease and elevated calcium further evaluation for sarcoidosis is being done requesting an Mikey level, this could potentially tie together the sitting and inflammation and his pulmonary status and elevated calcium. Still remain concerned about an underlying malignancy. Current Visit: Yes Status: Acute Code(s): R41.82 - ALTERED MENTAL STATUS, UNSPECIFIED SNOMED Code(s): 877427503 (2) Diabetic ulcer of right foot associated with type 2 diabetes mellitus, with fat layer exposed Current Visit: No Status: Acute Code(s): E11.621 - TYPE 2 DIABETES MELLITUS WITH FOOT ULCER; L97.512 - NON-PRS CHRONIC ULCER OTH PRT RIGHT FOOT W FAT LAYER EXPOSED SNOMED Code(s): 4779523870737 (3) Serum calcium elevated Current Visit: Yes Status: Acute Code(s): E83.52 - HYPERCALCEMIA SNOMED Code(s): 82092012
[2018-01-31] MEDS: MAGNESIUM HYDROXIDE 2,400 MG/10 ML CUP PO PRN (00:15)
[2018-01-31] MEDS: HALOPERIDOL 1 MG TAB PO PRN ×2 (04:17→20:50)
[2018-01-31] MEDS: LEVOTHYROXINE 25 MCG TAB PO SCH (06:02)
[2018-01-31] MEDS: FUROSEMIDE 10 MG/ML 4 ML VIAL IV SCH ×2 (06:03→18:42)
[2018-01-31] MEDS: PANTOPRAZOLE 40 MG TABLET PO SCH (06:03)
[2018-01-31 06:19] LABS: Glucose,Whole Blood 125 mg/dL (75-99)
[2018-01-31] MEDS: INSULIN ASPART 100 UNIT/ML 1 ML 10 ML VIAL SQ SCH ×4 (06:27→22:46)
[2018-01-31 06:41] LABS: Calcium 11.9 mg/dL (8.4-10.2); Potassium 3.3 mmol/L (3.5-5.1)
[2018-01-31 06:57] LABS: Anisocytosis Slight; Basophils % (A) 0 %; Eosinophils # (A) 0.1 k/uL (0-0.7); Eosinophils % (A) 1 %; HCT 30.3 % (39.0-53.0); HGB 9.8 gm/dL (13.0-17.5); Lymphocytes # (A) 1.1 k/uL (1.0-4.8); Lymphocytes % (A) 9 %; MCH 29.1 pg (25.0-35.0); MCHC 32.4 g/dL (31.0-37.0); MCV 89.9 fL (80.0-100.0); Mean Platelet Volume 7.2; Monocytes # (A) 0.4 k/uL (0-1.0); Monocytes % (A) 3 %; Neutrophils # (A) 9.9 k/uL (1.3-7.7); Neutrophils % (A) 86 %; Platelet Count 518 k/uL (150-450); RBC 3.37 m/uL (4.30-5.90); RDW 17.3 % (11.5-15.5); WBC 11.5 k/uL (3.8-10.6)
[2018-01-31] MEDS ORDERED: Potassium Replacement Protocol 1 EACH MISC MISCELLANE PRN (07:50)
[2018-01-31] MEDS ORDERED: NON-FORMULARY DRUG (Vitamin E [Vitamin E] 100 UNIT) PO SCH (09:00)
[2018-01-31] MEDS ORDERED: COGNIUM PO SCH (09:00)
[2018-01-31] MEDS ORDERED: NON-FORMULARY DRUG (Cod Liver Oil [Cod Liver Oil] 1 CAP) PO SCH (09:00)
[2018-01-31] MEDS: POTASSIUM CHLORIDE ER 20 MEQ TAB.ER PO SCH ×2 (09:05→11:06)
[2018-01-31] MEDS: METOPROLOL TARTRATE 25 MG TAB PO SCH ×2 (09:06→20:50)
[2018-01-31] MEDS: CYANOCOBALAMIN 500 MCG TAB PO SCH (09:07)
[2018-01-31] MEDS: MEGESTROL 400 MG/10 ML CUP PO SCH ×2 (09:07→20:50)
[2018-01-31] MEDS: CLOPIDOGREL 75 MG TAB PO SCH (09:07)
[2018-01-31] MEDS: B COMPLEX-VIT C-VIT E-ZINC 1 EACH TAB PO SCH (09:07)
[2018-01-31] MEDS: VIT A,C & E-LUTEIN-MINERALS 1 EACH TAB PO SCH (09:07)
[2018-01-31] MEDS: PYRIDOXINE 50 MG TAB PO SCH (09:08)
[2018-01-31] MEDS: HEPARIN SODIUM,PORCINE 5,000 UNIT/ML 1 ML VIAL SQ SCH ×2 (09:09→20:50)
[2018-01-31] MEDS: cefTRIAXone IN SWFI 1,000 MG/10 ML SYRINGE IVP SCH (09:12)
[2018-01-31] MEDS: CALCITONIN INJ 200 UNIT/ML (MDV) VIAL SUBDERMAL SCH (11:06)
--- NOTE | 2018-01-31 11:31 | P.PN ---
Subjective Progress Note Date: 01/31/18 Principal diagnosis: Shortness of breath Progress note dated 01/31/2018 72-year-old male sent to the emergency room for evaluation. He apparently had changes in mental status. He was apparently feeling very weak and fatigued. He was not really specific. Was recently in the hospital for similar episode. His chest x-ray showed what appeared to be mild heart failure. His N-terminal proBNP was quite elevated. He does have a history of mild COPD he sees my partner for that. In addition, he has a history of diabetes GERD hyperlipidemia hypertension previous AL DJD pneumonia hypothyroidism and macular degeneration. Objective - Vital Signs Vital signs: Vital Signs Temp 97.3 F L 01/31/18 08:55 Pulse 134 H 01/31/18 08:55 Resp 18 01/31/18 08:55 BP 150/65 01/31/18 08:55 Pulse Ox 94 L 01/31/18 08:55 Intake & Output 01/30/18 01/31/18 01/31/18 18:59 06:59 18:59 Intake Total 1020 75 600 Output Total 1500 Balance 1020 -1425 600 Weight 68.6 kg 69.4 kg Intake: Intake, IV Titration 100 Amount cefTRIAXone 1,000 mg In 100 Sodium Chloride 0.9% 50 ml @ 100 mls/hr IVPB Q24HR [facility] Rx#:[id number] Oral 920 75 600 Output: Urine 1500 Other: # Bowel Movements 1 - Exam No acute distress, confused, with nasal O2 in place. HEENT examination is grossly unremarkable. Mucous membranes are moist. No oral lesions. Neck supple. Full range of motion. No adenopathy thyromegaly or neck vein distention. Cardiovascular examination reveals regular rhythm rate. S1-S2 normal. No S3 or S4. No discernible murmur noted. Lungs reveal mild bibasilar crackles. No wheezes. No rhonchi. Breath sounds are equal bilaterally. Abdomen soft bowel sounds are heard. No masses or tenderness. Extremities are intact. Slight edema noted to the right lower extremity.. Skin is without rash or lesion. Neurologic examination is brief but nonfocal. - Labs CBC & Chem 7: 01/31/18 05:48 01/31/18 05:48 Labs: Abnormal Lab Results - Last 24 Hours (Table) 01/30/18 01/30/18 01/30/18 Range/Units 05:19 11:27 16:12 WBC (3.8-10.6) k/uL RBC (4.30-5.90) m/uL Hgb (13.0-17.5) gm/dL Hct (39.0-53.0) % RDW (11.5-15.5) % Plt Count (150-450) k/uL Neutrophils # (1.3-7.7) k/uL Potassium (3.5-5.1) mmol/L BUN (9-20) mg/dL Glucose (74-99) mg/dL POC Glucose (mg/dL) 110 H 109 H (75-99) mg/dL Calcium (8.4-10.2) mg/dL Ionized Calcium Heidi 6.9 H* (4.5-5.3) mg/dL 01/30/18 01/31/18 01/31/18 Range/Units 20:57 05:48 05:48 WBC 11.5 H (3.8-10.6) k/uL RBC 3.37 L (4.30-5.90) m/uL Hgb 9.8 L (13.0-17.5) gm/dL Hct 30.3 L (39.0-53.0) % RDW 17.3 H (11.5-15.5) % Plt Count 518 H (150-450) k/uL Neutrophils # 9.9 H (1.3-7.7) k/uL Potassium 3.3 L (3.5-5.1) mmol/L BUN 32 H (9-20) mg/dL Glucose 112 H (74-99) mg/dL POC Glucose (mg/dL) 142 H (75-99) mg/dL Calcium 11.9 H (8.4-10.2) mg/dL Ionized Calcium Heidi (4.5-5.3) mg/dL 01/31/18 Range/Units 06:16 WBC (3.8-10.6) k/uL RBC (4.30-5.90) m/uL Hgb (13.0-17.5) gm/dL Hct (39.0-53.0) % RDW (11.5-15.5) % Plt Count (150-450) k/uL Neutrophils # (1.3-7.7) k/uL Potassium (3.5-5.1) mmol/L BUN (9-20) mg/dL Glucose (74-99) mg/dL POC Glucose (mg/dL) 125 H (75-99) mg/dL Calcium (8.4-10.2) mg/dL Ionized Calcium Heidi (4.5-5.3) mg/dL Microbiology - Last 24 Hours (Table) 01/29/18 17:00 Urine Culture - Final Urine,Clean Catch Assessment and Plan Assessment: Assessment Mental status changes, more likely chronic than acute. History of mild COPD/asthma, not active at this time. Mild CHF History of hypothyroidism History of diabetes History of gastroesophageal reflux disease Hyperlipidemia by history History of hypertension Previous history of myocardial infarction DJD Macular degeneration History of anemia Plan: Plan 01/30/2018 The patient primarily has mental status changes which is a mention above are more likely chronic as opposed to acute. The patient's chest x-ray and lab are consistent with mild interstitial edema. His COPD/asthma is not currently active and the only thing he takes that his low dose Advair. He does see my partner is her primary. We'll continue to follow. Labs x-rays a medications are all reviewed. Plan dated 01/31/2018 The patient is doing relatively well. No major changes from yesterday. Still a bit confused. COPD is not particularly active. Admitted with a diagnosis of mental status changes and mild heart failure. Time with Patient: Less than 30
[2018-01-31 12:06] LABS: Glucose,Whole Blood 123 mg/dL (75-99)
[2018-01-31] MEDS: MULTIVITAMINS, THERA 1 EACH TAB PO SCH (12:43)
--- NOTE | 2018-01-31 14:21 | P.CNNES ---
History of Present Illness Consult date: 01/31/18 Reason for Consult: Patient being evaluated for altered mental status. History of Present Illness: This patient is a 72-year-old right-handed white male who was admitted to [facility] on 01/29/2018 for evaluation of altered mental status. Patient was having recent episodes of multiple falls at home which she described happened in the bathroom a few weeks ago. He was recently hospitalized for these falls back in December 2017 and was being treated for congestive heart failure. He underwent a cardiac catheterization as there was concerns for non-ST elevated myocardial infarction. His cardiac catheterization showed some evidence of right coronary artery disease but nothing that required stenting. The patient is also been followed in the outpatient infectious disease clinic for right plantar ulceration. He has a history of diabetes mellitus but apparently has a very good control of his blood sugars. The patient apparently this admission became extremely weak and confused and was brought into the emergency room and subsequently admitted to Hospital. His initial laboratory testing reveals him to have evidence of hypercalcemia. His serum calcium level was noted to be 12.7 and ionized calcium was 6.9. Both are elevated. He is being carefully evaluated for possibility of occult malignancy at this time. The patient apparently has been showing episodes of confusion more noticeable at home. According to the nurse the has noted him to become quite disoriented at home. He is able to answer questions appropriately but his behavior and affect at home are quite different. Due to his recent changes he was admitted to the hospital for further evaluation. He is being treated for the hypercalcemia. He was started on calcitonin only yesterday. He did undergo a computed tomography scan of the brain this admission which was reported to show no definite acute process. There was evidence of nonspecific low attenuation seen bilaterally in the sullivan radiata and centrum semiovale ovale. Review of this actual CAT scan film reveals at least 3 hypodensities in the right hemisphere in these locations. We have recommended the patient undergo MRI of the brain with and without gadolinium for further evaluation. Case was discussed today with Dr. Romano who is going to pursue further workup for malignancy with a computed tomography scan of the chest. He is also been found to have evidence of urinary retention and urology has been consulted. He had did have a catheter placed yesterday as there was significant urine retention. He should also be checked for prostate as well. Urology has been consulted. Apparently his confusional state has been progressive over the last 3 months. According to the nurse more recently it has been quite noticeable to the . This was his main reason for admission to the hospital. The patient denies any previous history of TIA or stroke. He is currently on Plavix and is being followed by cardiology. Hopefully as his serum calcium level returns to normal there may be some improvement in his overall mental status. His hypercalcemia may also be contributing to his confusional status. We will arrange for MRI of the brain with and without gadolinium for further evaluation. His overall prognosis at this time remains guarded. Neurology is now been consulted for further evaluation and recommendations. Review of Systems Constitutional: Denies chills, Denies fever Eyes: denies blurred vision, denies pain Ears, nose, mouth and throat: Denies headache, Denies sore throat Cardiovascular: Reports dyspnea on exertion, Reports orthopnea, Denies chest pain, Denies shortness of breath Respiratory: Reports dyspnea, Denies cough Gastrointestinal: Reports bloating, Denies abdominal pain, Denies diarrhea, Denies nausea, Denies vomiting Genitourinary: Reports urinary retention Musculoskeletal: Denies myalgias Integumentary: Denies pruritus, Denies rash Neurological: Reports confusion, Reports gait dysfunction, Reports paresthesias , Reports tingling, Denies numbness, Denies weakness Psychiatric: Denies anxiety, Denies depression Endocrine: Denies fatigue, Denies weight change Past Medical History Past Medical History: Asthma, COPD, Diabetes Mellitus, Eye Disorder, GERD/Reflux , Hyperlipidemia, Hypertension, Myocardial Infarction ([place]), Osteoarthritis ([place]) , Pneumonia, Thyroid Disorder, Vascular Disorder Additional Past Medical History / Comment(s): per - pt's general overall health /abilty has been deteriorating last few weeks. getting very foregetfull, weak, falls.MACULAR DEGENERATION lt eye, PVD. hx heart murmur,diverticulosis, carotid stenosis, rt foot ulcer, anemia-sees dr castillo, past lt eye/orbital cellulitis and rt hand cellulitis. hiatal hernia.neuropaathy hands/feet. Last Myocardial Infarction Date:: 1996? History of Any Multi-Drug Resistant Organisms: None Reported Past Surgical History: Orthopedic Surgery Additional Past Surgical History / Comment(s): ANA AORTAGRAM WITH ANA STENTS. , LEFT SHOULDER WITH HARDWARE ( HARDWARE REMOVED) , LEFT KNEE ligament repair. colonocopy , FASCIOTOMY OF RIGHT CALF egd w/bx. Past Anesthesia/Blood Transfusion Reactions: No Reported Reaction Past Psychological History: No Psychological Hx Reported Additional Psychological History / Comment(s): . 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 He lives at home with his and there is a dog and a cat in the home. He travels frequently to [place] where his children and grandchildren live Past Drug Use History: None Reported - Past Family History Sister(s) Family Medical History: Cancer Additional Family Medical History / Comment(s): Lung Cancer Mother Family Medical History: No Reported History Additional Family Medical History / Comment(s): from "natural causes" Father Family Medical History: Coronary Artery Disease (CAD), Diabetes Mellitus, Myocardial Infarction ([place]) Medications and Allergies Home Medications Medication Instructions Recorded Confirmed Type Clopidogrel [Plavix] 75 mg PO DAILY 06/22/15 01/29/18 History Fosinopril [Monopril] 10 mg PO HS 05/13/17 01/29/18 History Levothyroxine Sodium 25 mcg PO DAILY 05/13/17 01/29/18 History metFORMIN HCL 1,000 mg PO BID 08/07/17 01/29/18 History Fluticasone/Salmeterol [Advair 1 puff INHALATION RT-BID 12/18/17 01/29/18 History 100-50 Diskus] Omeprazole [PriLOSEC] 20 mg PO AC-BID 12/18/17 01/29/18 History Furosemide [Lasix] 40 mg PO DAILY #30 tablet 01/09/18 01/29/18 Rx Aspirin EC [Ecotrin Low Dose] 81 mg PO HS 01/29/18 01/29/18 History Aspirin EC [Ecotrin] 325 mg PO HS 01/29/18 01/29/18 History Cod Liver Oil 1 cap PO DAILY 01/29/18 01/29/18 History Cognium 1 tab PO DAILY 01/29/18 01/29/18 History Cyanocobalamin (Vitamin B-12) 1,000 mcg PO DAILY 01/29/18 01/29/18 History [Vitamin B-12] Hydrochlorothiazide [Hydrodiuril] 25 mg PO DAILY 01/29/18 01/29/18 History Iron(Unknown Dose) 1 tab PO DAILY 01/29/18 01/29/18 History Megestrol [Megace] 400 mg PO BID 01/29/18 01/29/18 History Multivitamins, Thera [Multivitamin 1 tab PO DAILY 01/29/18 01/29/18 History (formulary)] Pyridoxine HCl (Vitamin B6) 100 mg PO DAILY 01/29/18 01/29/18 History [Vitamin B-6] Vitamin B Complex 1 cap PO DAILY 01/29/18 01/29/18 History Vitamin E 100 unit PO DAILY 01/29/18 01/29/18 History Vits A,C,E/Lutein/Minerals 1 tab PO DAILY 01/29/18 01/29/18 History [Ocuvite with Lutein Tablet] Allergies Allergy/AdvReac Type Severity Reaction Status Date / Time No Known Allergies Allergy Verified 01/29/18 17:07 Physical Examination - Vital Signs Vital Signs: Vital Signs Temp Pulse Resp BP Pulse Ox 01/31/18 08:55 97.3 F L 134 H 18 150/65 94 L 01/31/18 03:49 98.7 F 88 18 164/92 93 L 01/31/18 03:48 85 18 01/31/18 00:00 98.0 F 85 18 162/86 96 01/30/18 20:00 98.3 F 81 18 187/86 97 01/30/18 15:40 98.4 F 87 18 186/83 94 L Intake and Output 01/30/18 01/31/18 01/31/18 22:59 06:59 14:59 Intake Total 315 600 Output Total 450 1050 Balance -135 -1050 600 Intake: Oral 315 600 Output: Urine 450 1050 Other: # Bowel Movements 1 Weight 69.4 kg - Constitutional General appearance: average body habitus, cooperative - EENT EENT: PERRL, mucous membranes moist - Respiratory Respiratory: lungs clear, normal breath sounds - Cardiovascular Cardiovascular: regular rate, normal S1, normal S2 Extremities: no peripheral edema bilaterally - Gastrointestinal Gastrointestinal: normoactive bowel sounds - Integumentary Integumentary: normal - Neurologic Cranial nerve examination: PERRL, EOMI, VFF, V1/V2/V3 grossly intact, face symmetric, tongue midline, intact gag reflex, intact corneal reflex, normal palatal elevation Speech examination: intact Sensorimotor examination: intact Motor examination - right side: 3/5: biceps, triceps, wrist flexion, wrist extension, body piercer, hip flexors, knee extensors, dorsiflexion, toe extension (EHL) , plantarflexion Motor examination - left side: 3/5: biceps, triceps, wrist flexion, wrist extension, body piercer, hip flexors, knee extensors, dorsiflexion, toe extension (EHL) , plantarflexion Detailed sensory examination: intact Reflex and gait examination: intact Reflexes: 1+: ankle, bicep, knee, tricep - Musculoskeletal Musculoskeletal: no pain - Psychiatric Psychiatric: mood/affect appropriate, cooperative Results - Laboratory Findings CBC and BMP: 01/31/18 05:48 01/31/18 05:48 Abnormal Lab Findings: Abnormal Labs 01/29/18 01/29/18 01/29/18 16:45 16:45 16:45 WBC 12.8 H RBC 3.29 L Hgb 9.0 L D Hct 29.3 L MCHC 30.9 L RDW 17.6 H Plt Count 532 H Neutrophils # 11.4 H Lymphocytes # 0.8 L Potassium BUN 34 H Glucose 142 H POC Glucose (mg/dL) Calcium 12.7 H Ionized Calcium Heidi Total Creatine Kinase 29 L Troponin I 0.044 H* Total Protein 5.8 L Albumin 2.8 L Urine Protein Urine WBC Urine Bacteria Urine Mucus Urine Yeast (Budding) 01/29/18 01/29/18 01/29/18 17:00 20:49 22:25 WBC RBC Hgb Hct MCHC RDW Plt Count Neutrophils # Lymphocytes # Potassium BUN Glucose POC Glucose (mg/dL) 111 H Calcium Ionized Calcium Heidi Total Creatine Kinase Troponin I 0.039 H* Total Protein Albumin Urine Protein Trace H Urine WBC 6 H Urine Bacteria Rare H Urine Mucus Rare H Urine Yeast (Budding) Moderate H 01/30/18 01/30/18 01/30/18 05:19 05:19 06:00 WBC RBC Hgb Hct MCHC RDW Plt Count Neutrophils # Lymphocytes # Potassium BUN Glucose POC Glucose (mg/dL) 105 H Calcium Ionized Calcium Heidi 6.9 H* Total Creatine Kinase Troponin I 0.045 H* Total Protein Albumin Urine Protein Urine WBC Urine Bacteria Urine Mucus Urine Yeast (Budding) 01/30/18 01/30/18 01/30/18 11:27 16:12 20:57 WBC RBC Hgb Hct MCHC RDW Plt Count Neutrophils # Lymphocytes # Potassium BUN Glucose POC Glucose (mg/dL) 110 H 109 H 142 H Calcium Ionized Calcium Heidi Total Creatine Kinase Troponin I Total Protein Albumin Urine Protein Urine WBC Urine Bacteria Urine Mucus Urine Yeast (Budding) 01/31/18 01/31/18 01/31/18 05:48 05:48 06:16 WBC 11.5 H RBC 3.37 L Hgb 9.8 L Hct 30.3 L MCHC RDW 17.3 H Plt Count 518 H Neutrophils # 9.9 H Lymphocytes # Potassium 3.3 L BUN 32 H Glucose 112 H POC Glucose (mg/dL) 125 H Calcium 11.9 H Ionized Calcium Heidi Total Creatine Kinase Troponin I Total Protein Albumin Urine Protein Urine WBC Urine Bacteria Urine Mucus Urine Yeast (Budding) 01/31/18 11:42 WBC RBC Hgb Hct MCHC RDW Plt Count Neutrophils # Lymphocytes # Potassium BUN Glucose POC Glucose (mg/dL) 123 H Calcium Ionized Calcium Heidi Total Creatine Kinase Troponin I Total Protein Albumin Urine Protein Urine WBC Urine Bacteria Urine Mucus Urine Yeast (Budding) Assessment and Plan (1) Acute encephalopathy Current Visit: Yes Status: Acute Code(s): G93.40 - ENCEPHALOPATHY, UNSPECIFIED SNOMED Code(s): 20462295 (2) Hypercalcemia Current Visit: Yes Status: Acute Code(s): E83.52 - HYPERCALCEMIA SNOMED Code(s): 70639414 (3) CHF (congestive heart failure) Current Visit: Yes Status: Acute Code(s): I50.9 - HEART FAILURE, UNSPECIFIED SNOMED Code(s): 25959526 (4) Diabetes mellitus Current Visit: No Status: Acute Code(s): E11.9 - TYPE 2 DIABETES MELLITUS WITHOUT COMPLICATIONS SNOMED Code(s): 35981251 (5) Diabetic ulcer of right foot associated with type 2 diabetes mellitus, with fat layer exposed Current Visit: No Status: Acute Code(s): E11.621 - TYPE 2 DIABETES MELLITUS WITH FOOT ULCER; L97.512 - NON-PRS CHRONIC ULCER OTH PRT RIGHT FOOT W FAT LAYER EXPOSED SNOMED Code(s): 0830781647959 (6) Non-ST elevation myocardial infarction (NSTEMI) Current Visit: No Status: Acute Code(s): I21.4 - NON-ST ELEVATION (NSTEMI) MYOCARDIAL INFARCTION SNOMED Code(s): 777246392 (7) Wound, open, foot Current Visit: No Status: Acute Code(s): S91.309A - UNSPECIFIED OPEN WOUND, UNSPECIFIED FOOT, INITIAL ENCOUNTER SNOMED Code(s): 992106328 Plan: This patient is a 72-year-old male who was admitted to [facility] yesterday for evaluation of altered mental status and generalized weakness. Patient has been showing a steady decline in cognitive functioning over the past 2-3 months at home. He was recently admitted to Hospital in December 2017 for multiple falls. He underwent a cardiac catheterization at that time and did not require any stenting. He did have evidence of congestive heart failure at that time. He is being followed closely by cardiology. Patient on this admission has been shown signs of increased confusion at home worsened over the last few days. His cognitive decline has been progressive over the last 2-3 months according to his . The patient underwent a computed tomography scan of the brain the results of which are noted above. There was some hypodensities noted on the CAT scan of the brain and we are recommending a MRI of the brain to be done with and without gadolinium for further assessment. Some of his confusion may be related to his hypercalcemia which was noted at the time of his admission. His serum calcium and ionized calcium are both elevated. He was started on calcitonin yesterday. We will need to see how his mental status is once his calcium returns to normal levels. The patient has a history of diabetic peripheral neuropathy. His hemoglobin A1c seems to be excellent. Exact cause for his weakness still is unclear. We will obtain his MRI of the brain and we'll give further recommendations pending those results. Case was discussed today at length with Dr. Romano. Due to his hypercalcemia he is to be further evaluated for occult malignancy. We will continue close neurological follow-up for the patient during this admission. His overall prognosis at this time remains very guarded. Time with Patient: Greater than 30
--- NOTE | 2018-01-31 14:42 | P.PN ---
Subjective Progress Note Date: 01/31/18 Principal diagnosis: Confusion 72-year-old male recently presented to Hospital status post fall at home. He had apparently had a slip and fall in his bathroom, relates that he was on the tile a great difficulty trying to get up off the floor. Resulting in the injury to the bridge of his nose, his forehead is hands minimally into his bilateral lower extremities especially at the knees. He been recently seen in the office were without evidence of acute worsening of the right foot plantar ulceration. He had had some treatment for the left foot diabetic ulceration occluded antibiotic therapy. And was showing some improvement. However when he presented to the office there was a marked worsening of that ulceration and constantly he was started on antibiotic therapy and local wound care with medical when he was initiated. Patient then presented to hospital with falls, significant weakness dehydration and chest pain. 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 He eventually improved enough to be discharged home. He is followed in the outpatient setting for the right plantar ulceration that was responding quite well to the therahoney dressing. Is related that the patient became very disoriented and very weak. Family was very concerned and he was brought to hospital. With the ulceration the infectious diseases consultation was requested. It is noted at the time of the consult the patient had evidence of significant hypercalcemia. The patient has had a trend for this just very recently. He's also had difficulties with elevated inflammatory parameters and workup for autoimmune disease has been negative. However now with a markedly elevated calcium will also evaluate for sarcoidosis. 01/31/2018 patient remains agitated and requires a sitter Objective - Vital Signs Vital signs: Vital Signs Temp 97.1 F L 01/31/18 11:40 Pulse 96 01/31/18 11:40 Resp 18 01/31/18 11:40 BP 161/75 01/31/18 11:40 Pulse Ox 98 01/31/18 11:40 Intake & Output 01/30/18 01/31/18 01/31/18 18:59 06:59 18:59 Intake Total 1020 75 600 Output Total 1500 Balance 1020 -1425 600 Weight 68.6 kg 69.4 kg Intake: Intake, IV Titration 100 Amount cefTRIAXone 1,000 mg In 100 Sodium Chloride 0.9% 50 ml @ 100 mls/hr IVPB Q24HR [facility] Rx#:[id number] Oral 920 75 600 Output: Urine 1500 Other: # Bowel Movements 1 - Exam 72-year-old male who is consuming more week until appearance the last time he was seen in the office, also has some confusion. HEENT: Anicteric conjunctiva are pink and moist nasal mucosa grossly intact without significant lesions, there is no thrush. Patient is evidence of the injury to the bridge of his nose with an eschar in place, and has the abrasion on his forehead also besides appear to have no jenny purulence and no drainage minimal surrounding erythema Neck: The neck is supple without significant lymphadenopathy or thyromegaly. Lungs: Symmetrical air entry is noted few expiratory wheezes are heard few basilar crackles are heard. No dullness or egophony is noted. Heart: Irregular with an audible S1 and S2 soft S4 no distinct murmur click or rub PMI was nondisplaced Abdomen: Positive bowel sounds soft and nontender without palpable masses or organomegaly. There was no guarding or rebound. Extremities: Patient is evidence of the recent fall he has evidence of some irritation to his hands but no jenny open ulcerations in the IV site appears to be intact. The bilateral reduction ratio evidence of the abrasions of bilateral knees, has evidence of abrasion to his toes. And then on the right foot plantar has evidence of the diabetic foot ulceration that appears to have penetration through the fat layer, there is some minimal erythema but no purulent drainage at the site. Please refer to the nursing documentation for the photography of these ulcerations and injuries Neuro: The patient is awake and alert Without focal deficits - Labs CBC & Chem 7: 01/31/18 05:48 01/31/18 05:48 Labs: Abnormal Lab Results - Last 24 Hours (Table) 01/30/18 01/30/18 01/31/18 Range/Units 16:12 20:57 05:48 WBC 11.5 H (3.8-10.6) k/uL RBC 3.37 L (4.30-5.90) m/uL Hgb 9.8 L (13.0-17.5) gm/dL Hct 30.3 L (39.0-53.0) % RDW 17.3 H (11.5-15.5) % Plt Count 518 H (150-450) k/uL Neutrophils # 9.9 H (1.3-7.7) k/uL Potassium (3.5-5.1) mmol/L BUN (9-20) mg/dL Glucose (74-99) mg/dL POC Glucose (mg/dL) 109 H 142 H (75-99) mg/dL Calcium (8.4-10.2) mg/dL 01/31/18 01/31/18 01/31/18 Range/Units 05:48 06:16 11:42 WBC (3.8-10.6) k/uL RBC (4.30-5.90) m/uL Hgb (13.0-17.5) gm/dL Hct (39.0-53.0) % RDW (11.5-15.5) % Plt Count (150-450) k/uL Neutrophils # (1.3-7.7) k/uL Potassium 3.3 L (3.5-5.1) mmol/L BUN 32 H (9-20) mg/dL Glucose 112 H (74-99) mg/dL POC Glucose (mg/dL) 125 H 123 H (75-99) mg/dL Calcium 11.9 H (8.4-10.2) mg/dL Microbiology - Last 24 Hours (Table) 01/29/18 17:00 Urine Culture - Final Urine,Clean Catch Laboratory Results WBC 11.5 k/uL (3.8-10.6) H 01/31/18 05:48 RBC 3.37 m/uL (4.30-5.90) L 01/31/18 05:48 Hgb 9.8 gm/dL (13.0-17.5) L 01/31/18 05:48 Hct 30.3 % (39.0-53.0) L 01/31/18 05:48 MCV 89.9 fL (80.0-100.0) 01/31/18 05:48 MCH 29.1 pg (25.0-35.0) 01/31/18 05:48 MCHC 32.4 g/dL (31.0-37.0) 01/31/18 05:48 RDW 17.3 % (11.5-15.5) H 01/31/18 05:48 Plt Count 518 k/uL (150-450) H 01/31/18 05:48 Neutrophils % 86 % 01/31/18 05:48 Lymphocytes % 9 % 01/31/18 05:48 Monocytes % 3 % 01/31/18 05:48 Eosinophils % 1 % 01/31/18 05:48 Basophils % 0 % 01/31/18 05:48 Neutrophils # 9.9 k/uL (1.3-7.7) H 01/31/18 05:48 Lymphocytes # 1.1 k/uL (1.0-4.8) 01/31/18 05:48 Monocytes # 0.4 k/uL (0-1.0) 01/31/18 05:48 Eosinophils # 0.1 k/uL (0-0.7) 01/31/18 05:48 Basophils # 0.0 k/uL (0-0.2) 01/31/18 05:48 Anisocytosis Slight 01/31/18 05:48 PT 10.9 sec (9.0-12.0) 01/29/18 16:45 INR 1.1 (<1.2) 01/29/18 16:45 APTT 22.9 sec (22.0-30.0) 01/29/18 16:45 Sodium 143 mmol/L (137-145) 01/31/18 05:48 Potassium 3.3 mmol/L (3.5-5.1) L 01/31/18 05:48 Chloride 100 mmol/L (98-107) 01/31/18 05:48 Carbon Dioxide 29 mmol/L (22-30) 01/31/18 05:48 Anion Gap 14 mmol/L 01/31/18 05:48 BUN 32 mg/dL (9-20) H 01/31/18 05:48 Creatinine 1.00 mg/dL (0.66-1.25) 01/31/18 05:48 Est GFR (CKD-EPI)AfAm 86 (>60 ml/min/1.73 sqM) 01/31/18 05:48 Est GFR (CKD-EPI)NonAf 74 (>60 ml/min/1.73 sqM) 01/31/18 05:48 Glucose 112 mg/dL (74-99) H 01/31/18 05:48 POC Glucose (mg/dL) 123 mg/dL (75-99) H 01/31/18 11:42 POC Glu Outpatient Facility Physical Therapist ID Yaritza Robles 01/31/18 11:[address] Glu mg/dL 114 01/30/18 05:19 Hemoglobin A1c 5.6 % (4.0-6.0) 01/30/18 05:19 Calcium 11.9 mg/dL (8.4-10.2) H 01/31/18 05:48 Ionized Calcium Heidi 6.9 mg/dL (4.5-5.3) H* 01/30/18 05:19 Phosphorus 4.1 mg/dL (2.5-4.5) 01/29/18 16:45 Magnesium 1.8 mg/dL (1.6-2.3) 01/29/18 16:45 Total Bilirubin 0.3 mg/dL (0.2-1.3) 01/29/18 16:45 AST 24 U/L (17-59) 01/29/18 16:45 ALT 22 U/L (21-72) 01/29/18 16:45 Alkaline Phosphatase 54 U/L (38-126) 01/29/18 16:45 Total Creatine Kinase 29 U/L (55-170) L 01/29/18 16:45 CK-MB (CK-2) 1.9 ng/mL (0.0-2.4) 01/29/18 16:45 CK-MB (CK-2) Rel Index 6.6 01/29/18 16:45 Troponin I 0.045 ng/mL (0.000-0.034) H* 01/30/18 05:19 NT-Pro-B Natriuret Pep 68826 pg/mL 01/30/18 05:19 Total Protein 5.8 g/dL (6.3-8.2) L 01/29/18 16:45 Albumin 2.8 g/dL (3.5-5.0) L 01/29/18 16:45 Urine Color Light Yellow 01/29/18 17:00 Urine Appearance Cloudy (Clear) 01/29/18 17:00 Urine pH 6.5 (5.0-8.0) 01/29/18 17:00 Ur Specific [place] 1.010 (1.001-1.035) 01/29/18 17:00 Urine Protein Trace (Negative) H 01/29/18 17:00 Urine Glucose (UA) Negative (Negative) 01/29/18 17:00 Urine Ketones Negative (Negative) 01/29/18 17:00 Urine Blood Negative (Negative) 01/29/18 17:00 Urine Nitrite Negative (Negative) 01/29/18 17:00 Urine Bilirubin Negative (Negative) 01/29/18 17:00 Urine Urobilinogen <2.0 mg/dL (<2.0) 01/29/18 17:00 Ur Leukocyte Esterase Negative (Negative) 01/29/18 17:00 Urine RBC 4 /hpf (0-5) 01/29/18 17:00 Urine WBC 6 /hpf (0-5) H 01/29/18 17:00 Urine Bacteria Rare /hpf (None) H 01/29/18 17:00 Urine Mucus Rare /hpf (None) H 01/29/18 17:00 Urine Yeast (Budding) Moderate /hpf (None) H 01/29/18 17:00 Microbiology 01/29/18 17:00 Urine,Clean Catch Urine Culture - Final Assessment and Plan (1) Altered mental status Narrative/Plan: 72-year-old male has had recent hospitalizations with increasing weakness and falls. He has some known underlying pulmonary disease. However now comes in with worsening confusion and some shortness of breath. His chest x -ray shows evidence of some interstitial changes potentially worsen the last check. It appears since his admission his confusion is improved. However he has had several recent hospitalizations with concerns to underlying disease process given the elevated inflammatory parameters, his significant weight loss and declining status. He's had multiple evaluations have included CT scans of the chest abdomen and pelvis and no brain without significant abnormalities except the interstitial disease within his lungs. The patient now has evidence of the markedly elevated calcium and ionized calcium. He has heart failure and there are some limits time which hydration can be given. In with this calcitonin will be given in attempts to reduce his calcium and improve his status. With the pulmonary disease and elevated calcium further evaluation for sarcoidosis is being done requesting an Mikey level, this could potentially tie together the sitting and inflammation and his pulmonary status and elevated calcium. Still remain concerned about an underlying malignancy. 01/31/2018 patient is slightly improved. Still agitated. Calcium is down to 11.9 with a calcitonin that was started. No positive cultures at this time. Hemoglobin is 9.8. Temperature is afebrile. Positive cultures. Remain concerned that the elevated calcium is impacting his mental status and hopefully assist number normalizes he will feel better. Etiology of the elevated calcium remains of concern, Mikey level is pending for further potential evaluation of sarcoidosis. Current Visit: Yes Status: Acute Code(s): R41.82 - ALTERED MENTAL STATUS, UNSPECIFIED SNOMED Code(s): 458775053 (2) Diabetic ulcer of right foot associated with type 2 diabetes mellitus, with fat layer exposed Current Visit: No Status: Acute Code(s): E11.621 - TYPE 2 DIABETES MELLITUS WITH FOOT ULCER; L97.512 - NON-PRS CHRONIC ULCER OTH PRT RIGHT FOOT W FAT LAYER EXPOSED SNOMED Code(s): 7401508055228 (3) Serum calcium elevated Current Visit: Yes Status: Acute Code(s): E83.52 - HYPERCALCEMIA SNOMED Code(s): 93380280
[2018-01-31 17:11] LABS: Glucose,Whole Blood 133 mg/dL (75-99)
--- NOTE | 2018-01-31 18:52 | PN ---
PROGRESS NOTE This patient is admitted with a change in mental status. The patient was found to have a congestive cardiac failure. The patient also has a moderate degree of carotid artery disease. Patient denies any chest discomfort. He remains comfortable. Patient's respirations are not labored. Afebrile. Blood pressure is 160/85 mmHg. Oxygen saturation is 93%. Her heart rate is 90 per minute. HEART: S1 and S2 normal. Lungs are clinically clear to auscultation and percussion. The patient's hemoglobin is 9.8, electrolytes are normal. The patient also has a elevated calcitonin which is being treated. The patient has been diuresing fairly well with IV Lasix. We will repeat the chest x- ray tomorrow. Continue the IV Lasix. An echocardiogram . MMODL / IJN: [id number] /
[2018-01-31] MEDS: ASPIRIN 81 MG PO SCH (20:50)
[2018-01-31] MEDS: LISINOPRIL 10 MG TAB PO SCH (20:50)
[2018-01-31 20:57] LABS: Glucose,Whole Blood 135 mg/dL (75-99)
--- NOTE | 2018-01-31 23:30 | P.PN ---
Subjective Progress Note Date: 01/31/18 Principal diagnosis: Acute CHF exacerbation Patient is 72-year-old male with a known history of COPD, coronary artery disease with history of stent placement, CHF with diastolic dysfunction, hypertension, hyperlipidemia, diabetes type 2 and history of [place] and other multiple medical problems came to ER with complaints of abdominal discomfort and weakness. He was recently hospitalized for congestive heart failure and was treated and released. The patient underwent cardiac catheterization in December 2017 that showed intermediate disease of the RCA and left circumflex. It was recommended that he continue with medical management. Patient denies any chest discomfort. Serial troponins are negative. His hemoglobin is 9, his hemoglobin last admission was above 10. He denies any dark or bright red blood per rectum. The patient does have unilateral swelling to the right lower extremity, venous Doppler was negative for DVT. Patient does have chronic foot ulcer and is on follow with Dr. Dixon as an outpatient. He has been up ambulating and does have shortness of breath but does not describe any worsening. He seen sitting up in bed he's in no acute distress. Chest x-ray showed nonspecific prominence of the pulmonary interstitium may reflect interstitial pneumonia with small effusions. Residual edema is felt to be less likely although not entirely excluded. BNP 11 500 Troponin 0.044, 0.039, 0.045 Acute abdominal series on admission showed advanced interstitial phase pulmonary edema and colonic fecal impaction. Patient did have bowel movement while in the ER. And relief of abdominal discomfort. 01/31/2018 Patient's breathing status is much improved today. Otherwise patient is still confused on and off. Patient was seen by neurology and MRI of the brain was ordered due to abnormal CT head. Calcium level is 11.9. willconsider CT chest with contrast if continues to be elevated. Pulmonary is on board.. No fever no chills. No nausea vomiting or abdominal pain. Patient says that he is feeling much better today. Otherwise no acute overnight issues All other review of systems negative except the above Discussed with his at bedside Active Medications Aspirin (Aspirin) 81 mg PO HS [facility] Last Admin: 01/31/18 20:50 Dose: 81 mg Calcitonin [place] (Miacalcin) 200 unit SUBDERMAL DAILY [facility] Last Admin: 01/31/18 11:06 Dose: 200 unit Ceftriaxone Sodium (Rocephin) 1,000 mg IVP Q24HR [facility] Last Admin: 01/31/18 09:12 Dose: 1,000 mg Clopidogrel Bisulfate (Plavix) 75 mg PO DAILY [facility] Last Admin: 01/31/18 09:07 Dose: 75 mg Cyanocobalamin (Vitamin B-12) 1,000 mcg PO DAILY [facility] Last Admin: 01/31/18 09:07 Dose: 1,000 mcg Furosemide (Lasix) 40 mg IV Q12H [facility] Last Admin: 01/31/18 18:42 Dose: 40 mg Haloperidol (Haldol) 1 mg PO Q6H PRN PRN Reason: Agitation Last Admin: 01/31/18 20:50 Dose: 1 mg Heparin Sodium (Porcine) (Heparin) 5,000 unit SQ Q12HR [facility] Last Admin: 01/31/18 20:50 Dose: 5,000 unit Insulin Aspart (Novolog) 0 unit SQ ACHS [facility] PRN Reason: Protocol Last Admin: 01/31/18 22:46 Dose: Not Given Levothyroxine Sodium (Synthroid) 25 mcg PO DAILY@0630 [facility] Last Admin: 01/31/18 06:02 Dose: 25 mcg Lisinopril (Zestril) 10 mg PO HS [facility] Last Admin: 01/31/18 20:50 Dose: 10 mg Magnesium Hydroxide (Milk Of Magnesia) 2,400 mg PO DAILY PRN PRN Reason: Constipation Last Admin: 01/31/18 00:15 Dose: 2,400 mg Megestrol Acetate (Megace) 400 mg PO BID [facility] Last Admin: 01/31/18 20:50 Dose: 400 mg Metoprolol Tartrate (Lopressor) 25 mg PO BID [facility] Last Admin: 01/31/18 20:50 Dose: 25 mg Miscellaneous Information (Potassium Per Protocol) 1 each MISCELLANE DAILY PRN ; Protocol PRN Reason: Per Protocol Multivitamins (Theragran) 1 each PO DAILY@1200 [facility] Last Admin: 01/31/18 12:43 Dose: 1 each Multivitamins/Minerals (Ivite) 1 each PO DAILY [facility] Last Admin: 01/31/18 09:07 Dose: 1 each Pantoprazole Sodium (Protonix) 40 mg PO AC-BRKFST [facility] Last Admin: 01/31/18 06:03 Dose: 40 mg Pyridoxine HCl (Vitamin B-6) 100 mg PO DAILY [facility] Last Admin: 01/31/18 09:08 Dose: 100 mg Vitamin B Complex/Vit C/Vit E/Zinc (Z-Bec) 1 each PO DAILY [facility] Last Admin: 01/31/18 09:07 Dose: 1 each Objective - Vital Signs Vital signs: Vital Signs Temp 97.3 F L 01/31/18 08:55 Pulse 134 H 01/31/18 08:55 Resp 18 01/31/18 08:55 BP 150/65 01/31/18 08:55 Pulse Ox 94 L 01/31/18 08:55 Intake & Output 01/30/18 01/31/18 01/31/18 18:59 06:59 18:59 Intake Total 1020 75 600 Output Total 1500 Balance 1020 -1425 600 Weight 68.6 kg 69.4 kg Intake: Intake, IV Titration 100 Amount cefTRIAXone 1,000 mg In 100 Sodium Chloride 0.9% 50 ml @ 100 mls/hr IVPB Q24HR [facility] Rx#:[id number] Oral 920 75 600 Output: Urine 1500 Other: # Bowel Movements 1 - Exam PHYSICAL EXAMINATION: Patient is lying in the bed comfortably, no acute distress, awake alert and oriented. But poor historian. HEENT: Normocephalic. Neck is supple. Pupils reactive. Nostrils clear. Oral cavity is moist. Ears reveal no drainage. Neck reveals no JVD, carotid bruits, or thyromegaly. CHEST EXAMINATION: Trachea is central. Symmetrical expansion. We will bibasilar crackles. Air entry improved. No wheezing CARDIAC: Normal S1, S2 with no gallops. No murmurs ABDOMEN: Soft. Nontender. Bowel sounds normal. No organomegaly. No abdominal bruits. Extremities: Right lower extremities 2+ edema. Right foot ulcer is bandaged.. No clubbing or cyanosis Neurologically awake, alert, oriented x3 with well-coordinated movements. No focal deficits noted Skin: No rash or skin lesions. Psychiatric: Cooperative. Could not be assessed completely Musculoskeletal: No joint swelling or deformity. Normal range of motion. - Labs CBC & Chem 7: 01/31/18 05:48 01/31/18 18:18 Labs: Abnormal Lab Results - Last 24 Hours (Table) 01/30/18 01/30/18 01/30/18 Range/Units 05:19 16:12 20:57 WBC (3.8-10.6) k/uL RBC (4.30-5.90) m/uL Hgb (13.0-17.5) gm/dL Hct (39.0-53.0) % RDW (11.5-15.5) % Plt Count (150-450) k/uL Neutrophils # (1.3-7.7) k/uL Potassium (3.5-5.1) mmol/L BUN (9-20) mg/dL Glucose (74-99) mg/dL POC Glucose (mg/dL) 109 H 142 H (75-99) mg/dL Calcium (8.4-10.2) mg/dL Ionized Calcium Heidi 6.9 H* (4.5-5.3) mg/dL 01/31/18 01/31/18 01/31/18 Range/Units 05:48 05:48 06:16 WBC 11.5 H (3.8-10.6) k/uL RBC 3.37 L (4.30-5.90) m/uL Hgb 9.8 L (13.0-17.5) gm/dL Hct 30.3 L (39.0-53.0) % RDW 17.3 H (11.5-15.5) % Plt Count 518 H (150-450) k/uL Neutrophils # 9.9 H (1.3-7.7) k/uL Potassium 3.3 L (3.5-5.1) mmol/L BUN 32 H (9-20) mg/dL Glucose 112 H (74-99) mg/dL POC Glucose (mg/dL) 125 H (75-99) mg/dL Calcium 11.9 H (8.4-10.2) mg/dL Ionized Calcium Heidi (4.5-5.3) mg/dL Microbiology - Last 24 Hours (Table) 01/29/18 17:00 Urine Culture - Final Urine,Clean Catch Assessment and Plan Assessment: Mild Acute CHF likely diastolic dysfunction. Elevated BNP and interstitial edema Altered mental Status. possible encephalopathy. Rule out CVA Hypercalcemia 11.9 COPD/asthma stable Elevated troponin level. Unlikely ACS. Patient had recent cardiac catheterization in December 2017 History of coronary artery disease status post stent placement previously Generalized weakness and frequent falls Abdominal discomfort due to colonic fecal impaction resolved with bowel movement. Hypothyroidism Diabetes type 2 GERD Hypertension Degenerative joint disease Chronic anemia Right diabetic foot ulcer . diabetic DVT prophylaxis heparin subcu Plan: Patient will be continued on aspirin Plavix and add metoprolol.. Continue with IV diuresis with Lasix. Continue the breathing treatments and Advair. Cardiology and pulmonary is following. Patient was seen by neurology due to altered mental status and recommended MRI of the brain. Continue with the home vitamins and Megace. Encourage oral intake and PTOT. Continue antibiotics and ID was consulted. Medical management and further recommendations based on the clinical course. Prognosis is guarded with multiple medical problems and comorbid conditions. Time with Patient: Greater than 30
[2018-02-01] MEDS: MAGNESIUM HYDROXIDE 2,400 MG/10 ML CUP PO PRN (01:42)
[2018-02-01] MEDS: INSULIN ASPART 100 UNIT/ML 1 ML 10 ML VIAL SQ SCH ×4 (06:15→20:55)
[2018-02-01] MEDS: FUROSEMIDE 10 MG/ML 4 ML VIAL IV SCH ×2 (06:16→20:48)
[2018-02-01] MEDS: LEVOTHYROXINE 25 MCG TAB PO SCH (06:16)
[2018-02-01] MEDS: PANTOPRAZOLE 40 MG TABLET PO SCH (06:17)
[2018-02-01 06:21] LABS: Anisocytosis Slight; Basophils % (A) 0 %; Eosinophils # (A) 0.4 k/uL (0-0.7); Eosinophils % (A) 4 %; HCT 30.3 % (39.0-53.0); HGB 9.4 gm/dL (13.0-17.5); Lymphocytes # (A) 1.2 k/uL (1.0-4.8); Lymphocytes % (A) 13 %; MCH 27.8 pg (25.0-35.0); MCHC 31.1 g/dL (31.0-37.0); MCV 89.4 fL (80.0-100.0); Mean Platelet Volume 7.5; Monocytes # (A) 0.3 k/uL (0-1.0); Monocytes % (A) 3 %; Neutrophils # (A) 7.2 k/uL (1.3-7.7); Neutrophils % (A) 79 %; Platelet Count 495 k/uL (150-450); RBC 3.39 m/uL (4.30-5.90); RDW 17.1 % (11.5-15.5); WBC 9.2 k/uL (3.8-10.6)
[2018-02-01 06:26] LABS: Glucose,Whole Blood 89 mg/dL (75-99)
[2018-02-01 06:44] LABS: Calcium 10.8 mg/dL (8.4-10.2); Potassium 3.1 mmol/L (3.5-5.1)
--- NOTE | 2018-02-01 08:20 | XR ---
EXAMINATION TYPE: XR chest 1V portable DATE OF EXAM: 02/01/2018 COMPARISON: 01/30/2018 HISTORY: Congestive heart failure and shortness of breath TECHNIQUE: Single frontal view of the chest is obtained. FINDINGS: There are similar appearing diffuse interstitial prominence in comparison to the prior of 01/30/2018. Cardiac silhouette is nonenlarged. No sizable pleural effusions or pneumothorax. Chronic le ft mid clavicular deformity from prior fracture is unchanged. Otherwise osseous structures appear allison ssly intact with degenerative changes of the thoracic spine and acromioclavicular joints that are mil d IMPRESSION: Similar-appearing moderate interstitial pulmonary edema without pleural effusion or card iomegaly. Alternatively atypical pneumonia could be considered.
[2018-02-01] MEDS: POTASSIUM CHLORIDE ER 20 MEQ TAB.ER PO SCH ×6 (09:11→21:55)
[2018-02-01] MEDS: cefTRIAXone IN SWFI 1,000 MG/10 ML SYRINGE IVP SCH (09:11)
[2018-02-01] MEDS: CYANOCOBALAMIN 500 MCG TAB PO SCH (09:12)
[2018-02-01] MEDS: B COMPLEX-VIT C-VIT E-ZINC 1 EACH TAB PO SCH (09:12)
[2018-02-01] MEDS: CLOPIDOGREL 75 MG TAB PO SCH (09:12)
[2018-02-01] MEDS: MEGESTROL 400 MG/10 ML CUP PO SCH ×2 (09:12→20:48)
[2018-02-01] MEDS: METOPROLOL TARTRATE 25 MG TAB PO SCH ×2 (09:13→20:48)
[2018-02-01] MEDS: VIT A,C & E-LUTEIN-MINERALS 1 EACH TAB PO SCH (09:13)
[2018-02-01] MEDS: HEPARIN SODIUM,PORCINE 5,000 UNIT/ML 1 ML VIAL SQ SCH ×2 (09:13→20:48)
[2018-02-01] MEDS: PYRIDOXINE 50 MG TAB PO SCH (09:13)
[2018-02-01] MEDS ORDERED: CALCITONIN INJ 200 UNIT/ML (MDV) VIAL SQ SCH (10:34)
--- NOTE | 2018-02-01 11:37 | ECHOF ---
Referral Reason:congestive heart failure MEASUREMENTS -------- HEIGHT: 165.1 cm WEIGHT: 69.4 kg BP: 139/86 IVSd: 1.2 cm (0.6 - 1.1) LVIDd: 4.1 cm (3.9 - 5.3) LVPWd: 1.1 cm (0.6 - 1.1) IVSs: 1.5 cm LVIDs: 2.9 cm LVPWs: 1.2 cm LA Diam: 3.5 cm (2.7 - 3.8) LAESV Index (A-L): 40.49 ml/m Ao Diam: 3.3 cm (2.0 - 3.7) AV Cusp: 1.8 cm (1.5 - 2.6) LA Diam: 4.7 cm (2.7 - 3.8) MV EXCURSION: 11.123 mm (> 18.000) MV EF SLOPE: 82 mm/s (70 - 150) MV E Rishabh: 0.66 m/s MV DecT: 286 ms MV A Rishabh: 0.76 m/s MV E/A Ratio: 0.87 RAP: 5.00 mmHg RVSP: 11.68 mmHg FINDINGS -------- Sinus rhythm. This was a technically adequate study. The left ventricular size is normal. There is mild concentric left ventricular hypertrophy. Overa ll left ventricular systolic function is normal with, an EF between 55 - 60 %. The right ventricle is normal in size. The left atrium is mildly dilated. LA is severely dilated >40 ml/m2 The right atrial size is normal. The aortic valve is trileaflet, and appears structurally normal. No aortic stenosis or regurgitation. Mild mitral annular calcification present. Mild mitral regurgitation is present. Mild tricuspid regurgitation present. There is no evidence of pulmonary hypertension. The right v entricular systolic pressure, as measured by Doppler, is 11.68mmHg. Trace/mild (physiologic) pulmonic regurgitation. The aortic root size is normal. There is no pericardial effusion. CONCLUSIONS -------- 1. The left ventricular size is normal. 2. There is mild concentric left ventricular hypertrophy. 3. Overall left ventricular systolic function is normal with, an EF between 55 - 60 %. 4. The left atrium is mildly dilated. 5. LA is severely dilated >40 ml/m2 6. The aortic valve is trileaflet, and appears structurally normal. No aortic stenosis or regurgitati on. 7. Mild mitral annular calcification present. 8. Mild mitral regurgitation is present. 9. Mild tricuspid regurgitation present. 10. There is no evidence of pulmonary hypertension. 11. The right ventricular systolic pressure, as measured by Doppler, is 11.68mmHg. 12. Trace/mild (physiologic) pulmonic regurgitation. 13. The aortic root size is normal. 14. There is no pericardial effusion. PRODUCT DEVELOPMENT CONSULTANT: Manisha Sprague RDCS
[2018-02-01] MEDS: CALCITONIN INJ 200 UNIT/ML (MDV) VIAL SQ SCH (11:46)
[2018-02-01] MEDS: MULTIVITAMINS, THERA 1 EACH TAB PO SCH (11:46)
[2018-02-01 11:57] LABS: Glucose,Whole Blood 104 mg/dL (75-99)
--- NOTE | 2018-02-01 12:11 | P.GSCN ---
History of Present Illness Consult date: 01/31/18 Reason for Consult: Urinary retention Requesting physician: Fredy Howell History of present illness: The patient is a 72-year-old male admitted with congestive heart failure. I have been consulted for urinary retention. The patient has an indwelling [place] catheter, draining clear yellow urine. He is a vague historian. I am unable to find any records on the chart specifying how much urine was drained upon catheter placement. I saw him in the office in late 2017 for right epididymitis , which has resolved. UA at that time showed no infection. DANA at that time revealed the prostate to be mildly enlarged but smooth. Review of Systems - Constitutional Reports fatigue, Denies fever - Genitourinary Reports urinary retention - Musculoskeletal right: ankle swelling - Neurological Reports gait dysfunction, Reports hearing difficulties, Reports weakness Past Medical History Past Medical History: Asthma, COPD, Diabetes Mellitus, Eye Disorder, GERD/Reflux , Hyperlipidemia, Hypertension, Myocardial Infarction (AL), Osteoarthritis (OA) , Pneumonia, Thyroid Disorder, Vascular Disorder Additional Past Medical History / Comment(s): per - pt's general overall health /abilty has been deteriorating last few weeks. getting very foregetfull, weak, falls.MACULAR DEGENERATION lt eye, PVD. hx heart murmur,diverticulosis, carotid stenosis, rt foot ulcer, anemia-sees dr castillo, past lt eye/orbital cellulitis and rt hand cellulitis. hiatal hernia.neuropaathy hands/feet. Last Myocardial Infarction Date:: 1996? History of Any Multi-Drug Resistant Organisms: None Reported Past Surgical History: Orthopedic Surgery Additional Past Surgical History / Comment(s): ANA AORTAGRAM WITH ANA STENTS. , LEFT SHOULDER WITH HARDWARE ( HARDWARE REMOVED) , LEFT KNEE ligament repair. colonocopy , FASCIOTOMY OF RIGHT CALF egd w/bx. Past Anesthesia/Blood Transfusion Reactions: No Reported Reaction Past Psychological History: No Psychological Hx Reported Additional Psychological History / Comment(s): . 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 He lives at home with his and there is a dog and a cat in the home. He travels frequently to [place] where his children and grandchildren live Past Drug Use History: None Reported - Past Family History Sister(s) Family Medical History: Cancer Additional Family Medical History / Comment(s): Lung Cancer Mother Family Medical History: No Reported History Additional Family Medical History / Comment(s): from "natural causes" Father Family Medical History: Coronary Artery Disease (CAD), Diabetes Mellitus, Myocardial Infarction (AL) Medications and Allergies Home Medications Medication Instructions Recorded Confirmed Type Clopidogrel [Plavix] 75 mg PO DAILY 06/22/15 01/29/18 History Fosinopril [Monopril] 10 mg PO HS 05/13/17 01/29/18 History Levothyroxine Sodium 25 mcg PO DAILY 05/13/17 01/29/18 History metFORMIN HCL 1,000 mg PO BID 08/07/17 01/29/18 History Fluticasone/Salmeterol [Advair 1 puff INHALATION RT-BID 12/18/17 01/29/18 History 100-50 Diskus] Omeprazole [PriLOSEC] 20 mg PO AC-BID 12/18/17 01/29/18 History Furosemide [Lasix] 40 mg PO DAILY #30 tablet 01/09/18 01/29/18 Rx Aspirin EC [Ecotrin Low Dose] 81 mg PO HS 01/29/18 01/29/18 History Aspirin EC [Ecotrin] 325 mg PO HS 01/29/18 01/29/18 History Cod Liver Oil 1 cap PO DAILY 01/29/18 01/29/18 History Cognium 1 tab PO DAILY 01/29/18 01/29/18 History Cyanocobalamin (Vitamin B-12) 1,000 mcg PO DAILY 01/29/18 01/29/18 History [Vitamin B-12] Hydrochlorothiazide [Hydrodiuril] 25 mg PO DAILY 01/29/18 01/29/18 History Iron(Unknown Dose) 1 tab PO DAILY 01/29/18 01/29/18 History Megestrol [Megace] 400 mg PO BID 01/29/18 01/29/18 History Multivitamins, Thera [Multivitamin 1 tab PO DAILY 01/29/18 01/29/18 History (formulary)] Pyridoxine HCl (Vitamin B6) 100 mg PO DAILY 01/29/18 01/29/18 History [Vitamin B-6] Vitamin B Complex 1 cap PO DAILY 01/29/18 01/29/18 History Vitamin E 100 unit PO DAILY 01/29/18 01/29/18 History Vits A,C,E/Lutein/Minerals 1 tab PO DAILY 01/29/18 01/29/18 History [Ocuvite with Lutein Tablet] Allergies Allergy/AdvReac Type Severity Reaction Status Date / Time No Known Allergies Allergy Verified 01/29/18 17:07 Surgical - Exam Vital Signs Temp Pulse Resp BP Pulse Ox 98.3 F 89 18 152/67 96 01/29/18 15:46 01/29/18 15:46 01/29/18 15:46 01/29/18 15:46 01/29/18 15:46 - General well developed, well nourished, no distress - Respiratory normal respiratory effort - Abdomen Abdomen: soft, non tender, no guarding, no rigid, no rebound - Genitourinary normal penis with no external lesions, testicles non-tender Results - Labs 02/01/18 05:46 02/01/18 05:46 Abnormal Lab Results - Last 24 Hours (Table) 01/30/18 01/31/18 01/31/18 Range/Units 20:57 05:48 05:48 WBC 11.5 H (3.8-10.6) k/uL RBC 3.37 L (4.30-5.90) m/uL Hgb 9.8 L (13.0-17.5) gm/dL Hct 30.3 L (39.0-53.0) % RDW 17.3 H (11.5-15.5) % Plt Count 518 H (150-450) k/uL Neutrophils # 9.9 H (1.3-7.7) k/uL Potassium 3.3 L (3.5-5.1) mmol/L BUN 32 H (9-20) mg/dL Glucose 112 H (74-99) mg/dL POC Glucose (mg/dL) 142 H (75-99) mg/dL Calcium 11.9 H (8.4-10.2) mg/dL 01/31/18 01/31/18 01/31/18 Range/Units 06:16 11:42 16:56 WBC (3.8-10.6) k/uL RBC (4.30-5.90) m/uL Hgb (13.0-17.5) gm/dL Hct (39.0-53.0) % RDW (11.5-15.5) % Plt Count (150-450) k/uL Neutrophils # (1.3-7.7) k/uL Potassium (3.5-5.1) mmol/L BUN (9-20) mg/dL Glucose (74-99) mg/dL POC Glucose (mg/dL) 125 H 123 H 133 H (75-99) mg/dL Calcium (8.4-10.2) mg/dL Microbiology - Last 24 Hours (Table) 01/29/18 17:00 Urine Culture - Final Urine,Clean Catch Diabetes panel 01/31/18 01/31/18 Range/Units 05:48 18:18 Sodium 143 (137-145) mmol/L Potassium 3.3 L 3.6 (3.5-5.1) mmol/L Chloride 100 (98-107) mmol/L Carbon Dioxide 29 (22-30) mmol/L BUN 32 H (9-20) mg/dL Creatinine 1.00 (0.66-1.25) mg/dL Glucose 112 H (74-99) mg/dL Calcium 11.9 H (8.4-10.2) mg/dL Calcium panel 01/31/18 Range/Units 05:48 Calcium 11.9 H (8.4-10.2) mg/dL Pituitary panel 01/31/18 01/31/18 Range/Units 05:48 18:18 Sodium 143 (137-145) mmol/L Potassium 3.3 L 3.6 (3.5-5.1) mmol/L Chloride 100 (98-107) mmol/L Carbon Dioxide 29 (22-30) mmol/L BUN 32 H (9-20) mg/dL Creatinine 1.00 (0.66-1.25) mg/dL Glucose 112 H (74-99) mg/dL Calcium 11.9 H (8.4-10.2) mg/dL Adrenal panel 01/31/18 01/31/18 Range/Units 05:48 18:18 Sodium 143 (137-145) mmol/L Potassium 3.3 L 3.6 (3.5-5.1) mmol/L Chloride 100 (98-107) mmol/L Carbon Dioxide 29 (22-30) mmol/L BUN 32 H (9-20) mg/dL Creatinine 1.00 (0.66-1.25) mg/dL Glucose 112 H (74-99) mg/dL Calcium 11.9 H (8.4-10.2) mg/dL Assessment and Plan (1) Urinary retention Current Visit: Yes Status: Acute Code(s): R33.9 - RETENTION OF URINE, UNSPECIFIED SNOMED Code(s): 749411798 Plan: Continue Gal[place] catheter for at least 48 hours, and until patient's overall strength is improved. The [place] catheter may then be removed for a voiding trial. The bladder scan should be used to check postvoid residuals to assess bladder emptying. I have ordered tamsulosin with the hopes that this will improve his ability to empty his bladder upon catheter removal. Time with Patient: Greater than 30
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
[2018-02-01 16:57] LABS: Glucose,Whole Blood 214 mg/dL (75-99)
--- NOTE | 2018-02-01 18:06 | P.PN ---
Subjective Progress Note Date: 02/01/18 On today's evaluation of 02/01/2018, the patient is being seen for a follow-up. He is more oriented and his altered mentation is improved. The patient is still very weak and debilitated. He is currently being treated for congestion heart failure. He had a recent catheterization that showed nonocclusive disease involving the RCA in the circumflex and the patient will not need any further cardiac intervention at this point in time. He has been followed up by Dr. Covarrubias on outpatient basis. He is known to have hypertension for vascular disease. He is still correct in lung bases bilaterally. He is benefiting from diuresis. Weight is down and the patient is function continues to be stable. The patient is on IV Lasix 40 mg every 12 hours. The chest x-ray from today shows interstitial edema and there is no significant pleural effusion and there is some background cardiomegaly. Objective - Vital Signs Vital signs: Vital Signs Temp 97.4 F L 02/01/18 15:40 Pulse 70 02/01/18 15:40 Resp 16 02/01/18 15:40 BP 117/77 02/01/18 15:40 Pulse Ox 95 02/01/18 15:40 Intake & Output 01/31/18 02/01/18 02/01/18 18:59 06:59 18:59 Intake Total 900 50 100 Output Total 3300 2400 600 Balance -2400 -2350 -500 Weight 65.4 kg Intake: Oral 900 50 100 Output: Urine 3300 2400 600 Uretheral ([place]) 2400 Other: # Bowel Movements 1 1 0 - Exam No acute distress, confused, with nasal O2 in place. The patient is calm and comfortable. HEENT examination is grossly unremarkable. Mucous membranes are moist. No oral lesions. Neck supple. Full range of motion. No adenopathy thyromegaly or neck vein distention. Cardiovascular examination reveals regular rhythm rate. S1-S2 normal. No S3 or S4. No discernible murmur noted. Lungs reveal mild bibasilar crackles. No wheezes. No rhonchi. Breath sounds are equal bilaterally. Abdomen soft bowel sounds are heard. No masses or tenderness. Extremities are intact. Slight edema noted to the right lower extremity.. Skin is without rash or lesion.Examination of the skin revealed no evidence of significant rashes, suspicious appearing nevi or other concerning lesions. Neurologic examination is brief but nonfocal. - Labs CBC & Chem 7: 02/01/18 05:46 02/01/18 14:05 Labs: Abnormal Lab Results - Last 24 Hours (Table) 01/30/18 01/31/18 02/01/18 Range/Units 05:19 20:56 05:46 RBC 3.39 L (4.30-5.90) m/uL Hgb 9.4 L (13.0-17.5) gm/dL Hct 30.3 L (39.0-53.0) % RDW 17.1 H (11.5-15.5) % Plt Count 495 H (150-450) k/uL Potassium (3.5-5.1) mmol/L Carbon Dioxide (22-30) mmol/L BUN (9-20) mg/dL POC Glucose (mg/dL) 135 H (75-99) mg/dL Calcium (8.4-10.2) mg/dL Angiotensin Convert Enz 7 L (8-52) U/L 02/01/18 02/01/18 02/01/18 Range/Units 05:46 11:56 14:05 RBC (4.30-5.90) m/uL Hgb (13.0-17.5) gm/dL Hct (39.0-53.0) % RDW (11.5-15.5) % Plt Count (150-450) k/uL Potassium 3.1 L 3.3 L (3.5-5.1) mmol/L Carbon Dioxide 31 H (22-30) mmol/L BUN 28 H (9-20) mg/dL POC Glucose (mg/dL) 104 H (75-99) mg/dL Calcium 10.8 H (8.4-10.2) mg/dL Angiotensin Convert Enz (8-52) U/L 02/01/18 Range/Units 16:56 RBC (4.30-5.90) m/uL Hgb (13.0-17.5) gm/dL Hct (39.0-53.0) % RDW (11.5-15.5) % Plt Count (150-450) k/uL Potassium (3.5-5.1) mmol/L Carbon Dioxide (22-30) mmol/L BUN (9-20) mg/dL POC Glucose (mg/dL) 214 H (75-99) mg/dL Calcium (8.4-10.2) mg/dL Angiotensin Convert Enz (8-52) U/L Assessment and Plan Plan: Assessment 1 exacerbation of CHF which is essentially of a diastolic dysfunction, acute on chronic, improving 2 History of mild COPD/asthma, not active at this time. 3 CHF with diastolic dysfunction 4 History of hypothyroidism 5 History of diabetes 6 History of gastroesophageal reflux disease 7 Hyperlipidemia by history 8 History of hypertension 9 Previous history of myocardial infarction 10 DJD 11 Macular degeneration 12 History of anemia Plan Continue the IV Lasix 40 mg every 12 hours. Monitor renal function. Monitor fluid balance. Monitor weights. Physical therapy. Continue aggressive the medication will continue to follow.
--- NOTE | 2018-02-01 19:08 | P.PN ---
Subjective Progress Note Date: 02/01/18 This patient is a 72-year-old male who is being evaluated for episode of confusion and recent falls. Patient was found on admission to have evidence of hypercalcemia. He has been treated for the elevated calcium levels and today his blood tests reveals total calcium to be 10.8. His levels are dropping slowly. He seemed to be doing better in terms of his mental status and is more alert and conversant. The patient's was at bedside and she is noted improvement in his mental status today. The patient is being evaluated for further causes of delirium and mental status changes and is scheduled to undergo MRI of the brain this evening. We will review the results tomorrow if available. The patient seems to be otherwise very cooperative with the nursing staff. He was less agitated today according to the . The hypercalcemia still a concern for possibility of underlying malignancy and other etiologies are being considered. Patient is being followed by Dr. Dixon was ordered an Mikey level for this patient to further evaluate for sarcoidosis. The patient seems to be resting comfortably. We will reevaluate him tomorrow after completion of his MRI. His overall prognosis at this time remains guarded. Objective - Vital Signs Vital signs: Vital Signs Temp 97.4 F L 02/01/18 15:40 Pulse 70 02/01/18 15:40 Resp 16 02/01/18 15:40 BP 117/77 02/01/18 15:40 Pulse Ox 95 02/01/18 15:40 Intake & Output 02/01/18 02/01/18 02/02/18 06:59 18:59 06:59 Intake Total 50 340 Output Total 2400 600 750 Balance -2350 -260 -750 Weight 65.4 kg Intake: Oral 50 340 Output: Urine 2400 600 750 Uretheral ([place]) 2400 750 Other: # Bowel Movements 1 0 - Exam Physical examination: PHYSICAL EXAMINATION: Patient is resting comfortably in bed. VITAL SIGNS: Blood pressure is [117/77]. Heart rate is [70]. Respiration is [16] . Temperature is [97.4]. HEENT: Head is atraumatic, neck is supple, there were no carotid bruits. CHEST: Lungs are clear to auscultation and percussion. CARDIAC: S1, S2 normal rate and rhythm. There is no murmur. ABDOMEN: Soft and nontender. Bowel sounds are present. EXTREMITIES: There is no pedal edema. Peripheral pulses are present. Neurological examination: Patient is awake and alert oriented 3. His speech is fluent with no evidence of any aphasia or dysarthria. His memory and intellectual functions show improvement as compared to yesterday. He is less agitated today. Cranial nerves II through XII are grossly intact. Motor examination fails to reveal any focal weakness. Deep tendon reflexes are 1+ and symmetric. Plantar responses flexor bilaterally. Coordination and gait could not be assessed at this time. - Labs CBC & Chem 7: 02/01/18 05:46 02/01/18 14:05 Labs: Abnormal Lab Results - Last 24 Hours (Table) 01/30/18 01/31/18 02/01/18 Range/Units 05:19 20:56 05:46 RBC 3.39 L (4.30-5.90) m/uL Hgb 9.4 L (13.0-17.5) gm/dL Hct 30.3 L (39.0-53.0) % RDW 17.1 H (11.5-15.5) % Plt Count 495 H (150-450) k/uL Potassium (3.5-5.1) mmol/L Carbon Dioxide (22-30) mmol/L BUN (9-20) mg/dL POC Glucose (mg/dL) 135 H (75-99) mg/dL Calcium (8.4-10.2) mg/dL Angiotensin Convert Enz 7 L (8-52) U/L 02/01/18 02/01/18 02/01/18 Range/Units 05:46 11:56 14:05 RBC (4.30-5.90) m/uL Hgb (13.0-17.5) gm/dL Hct (39.0-53.0) % RDW (11.5-15.5) % Plt Count (150-450) k/uL Potassium 3.1 L 3.3 L (3.5-5.1) mmol/L Carbon Dioxide 31 H (22-30) mmol/L BUN 28 H (9-20) mg/dL POC Glucose (mg/dL) 104 H (75-99) mg/dL Calcium 10.8 H (8.4-10.2) mg/dL Angiotensin Convert Enz (8-52) U/L 02/01/18 Range/Units 16:56 RBC (4.30-5.90) m/uL Hgb (13.0-17.5) gm/dL Hct (39.0-53.0) % RDW (11.5-15.5) % Plt Count (150-450) k/uL Potassium (3.5-5.1) mmol/L Carbon Dioxide (22-30) mmol/L BUN (9-20) mg/dL POC Glucose (mg/dL) 214 H (75-99) mg/dL Calcium (8.4-10.2) mg/dL Angiotensin Convert Enz (8-52) U/L Assessment and Plan (1) Acute encephalopathy Current Visit: Yes Status: Acute Code(s): G93.40 - ENCEPHALOPATHY, UNSPECIFIED SNOMED Code(s): 21977502 (2) Hypercalcemia Current Visit: Yes Status: Acute Code(s): E83.52 - HYPERCALCEMIA SNOMED Code(s): 29597061 (3) CHF (congestive heart failure) Current Visit: Yes Status: Acute Code(s): I50.9 - HEART FAILURE, UNSPECIFIED SNOMED Code(s): 72726696 (4) Diabetes mellitus Current Visit: No Status: Acute Code(s): E11.9 - TYPE 2 DIABETES MELLITUS WITHOUT COMPLICATIONS SNOMED Code(s): 03722213 (5) Diabetic ulcer of right foot associated with type 2 diabetes mellitus, with fat layer exposed Current Visit: No Status: Acute Code(s): E11.621 - TYPE 2 DIABETES MELLITUS WITH FOOT ULCER; L97.512 - NON-PRS CHRONIC ULCER OTH PRT RIGHT FOOT W FAT LAYER EXPOSED SNOMED Code(s): 7249780076588 (6) Non-ST elevation myocardial infarction (NSTEMI) Current Visit: No Status: Acute Code(s): I21.4 - NON-ST ELEVATION (NSTEMI) MYOCARDIAL INFARCTION SNOMED Code(s): 098390667 (7) Wound, open, foot Current Visit: No Status: Acute Code(s): S91.309A - UNSPECIFIED OPEN WOUND, UNSPECIFIED FOOT, INITIAL ENCOUNTER SNOMED Code(s): 929186062 Plan: This patient is a 72-year-old male being evaluated for episode of confusion and recent fall. He was admitted to hospital and was found to have evidence of hypercalcemia. He has been treated for this condition and his serum calcium level today is come down to 10.8. He is showing improvement in his mental status today. He is to undergo MRI of the brain with and without gadolinium to be done later this evening. We will await the results tomorrow. We will continue close neurological follow-up for the patient. According to his who is at bedside he seems to be doing better with this mental condition and mental status changes today. She has been concerned as over the last 3 weeks he showed a rapid decline in his day-to-day functioning at home. We have explained all of his recent test results to the in detail. She is aware that his MRI is to be done this evening and we will reevaluate him again tomorrow. His overall prognosis at this time remains guarded.
[2018-02-01] MEDS: ASPIRIN 81 MG PO SCH (20:47)
[2018-02-01] MEDS: LISINOPRIL 10 MG TAB PO SCH (20:47)
[2018-02-01 20:55] LABS: Glucose,Whole Blood 127 mg/dL (75-99)
--- NOTE | 2018-02-01 21:00 | MR ---
EXAMINATION TYPE: MR brain wo/w con DATE OF EXAM: 02/01/2018 COMPARISON: 09/07/2017 HISTORY: AMS TECHNIQUE: Multiplanar, multisequence images of the brain and brainstem is performed without and with IV contras t, utilizing 7 mL intravenous Gadavist . FINDINGS: There is diffuse cerebral cortical atrophy. There is moderate patchy increased signal in th e periventricular white matter on the FLAIR and T2 images. These areas measure up to 1.5 cm. There is also small areas of increased signal in the jasbir bilaterally. There is no midline shift. There is no sign of intracranial hemorrhage. Contrast images show no pathologic enhancement. There is lack of co ntrast opacification of the left internal carotid artery. CONCLUSION: Cerebral atrophy. Moderate periventricular white matter changes probably due to chronic small vessel ischemia. No evidence of a definite cortical infarct. Demyelinating disease is possible. No significa nt change compared to old exam. There is clearing of the changes of the left orbit compared to old ex am. 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
--- NOTE | 2018-02-01 21:07 | P.PN ---
Subjective Progress Note Date: 02/01/18 Principal diagnosis: Confusion 72-year-old male recently presented to Hospital status post fall at home. He had apparently had a slip and fall in his bathroom, relates that he was on the tile a great difficulty trying to get up off the floor. Resulting in the injury to the bridge of his nose, his forehead is hands minimally into his bilateral lower extremities especially at the knees. He been recently seen in the office were without evidence of acute worsening of the right foot plantar ulceration. He had had some treatment for the left foot diabetic ulceration occluded antibiotic therapy. And was showing some improvement. However when he presented to the office there was a marked worsening of that ulceration and constantly he was started on antibiotic therapy and local wound care with medical when he was initiated. Patient then presented to hospital with falls, significant weakness dehydration and chest pain. 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 He eventually improved enough to be discharged home. He is followed in the outpatient setting for the right plantar ulceration that was responding quite well to the therahoney dressing. Is related that the patient became very disoriented and very weak. Family was very concerned and he was brought to hospital. With the ulceration the infectious diseases consultation was requested. It is noted at the time of the consult the patient had evidence of significant hypercalcemia. The patient has had a trend for this just very recently. He's also had difficulties with elevated inflammatory parameters and workup for autoimmune disease has been negative. However now with a markedly elevated calcium will also evaluate for sarcoidosis. 01/31/2018 patient remains agitated and requires a sitter 02/01/2018 patient is now less agitated. No longer has a sitter. Family members present and the patient is doing better oriented to all but time, thought it was 1984. With this improving calcium appears to be having some improving mental status. Been followed by cardiology severely dilated left atrium was noted by echocardiogram. Objective - Vital Signs Vital signs: Vital Signs Temp 97.4 F L 02/01/18 15:40 Pulse 70 02/01/18 15:40 Resp 16 02/01/18 15:40 BP 117/77 02/01/18 15:40 Pulse Ox 95 02/01/18 15:40 Intake & Output 02/01/18 02/01/18 02/02/18 06:59 18:59 06:59 Intake Total 50 340 Output Total 2400 600 750 Balance -3900 260 -750 Weight 65.4 kg Intake: Oral 50 340 Output: Urine 2400 600 750 Uretheral ([place]) 2400 750 Other: # Bowel Movements 1 0 - Exam 72-year-old male who is consuming more week until appearance the last time he was seen in the office, also has some confusion. HEENT: Anicteric conjunctiva are pink and moist nasal mucosa grossly intact without significant lesions, there is no thrush. Patient is evidence of the injury to the bridge of his nose with an eschar in place, and has the abrasion on his forehead also besides appear to have no jenny purulence and no drainage minimal surrounding erythema Neck: The neck is supple without significant lymphadenopathy or thyromegaly. Lungs: Symmetrical air entry is noted few expiratory wheezes are heard few basilar crackles are heard. No dullness or egophony is noted. Heart: Irregular with an audible S1 and S2 soft S4 no distinct murmur click or rub PMI was nondisplaced Abdomen: Positive bowel sounds soft and nontender without palpable masses or organomegaly. There was no guarding or rebound. Extremities: Patient is evidence of the recent fall he has evidence of some irritation to his hands but no jenny open ulcerations in the IV site appears to be intact. The bilateral reduction ratio evidence of the abrasions of bilateral knees, has evidence of abrasion to his toes. And then on the right foot plantar has evidence of the diabetic foot ulceration that appears to have penetration through the fat layer, there is some minimal erythema but no purulent drainage at the site. Please refer to the nursing documentation for the photography of these ulcerations and injuries Neuro: The patient is awake and alert Without focal deficits awake alert oriented to person and place Vadim for time but was 1985. Otherwise is much more interactive and stable today. - Labs CBC & Chem 7: 02/01/18 05:46 02/01/18 20:02 Labs: Abnormal Lab Results - Last 24 Hours (Table) 01/30/18 02/01/18 02/01/18 Range/Units 05:19 05:46 05:46 RBC 3.39 L (4.30-5.90) m/uL Hgb 9.4 L (13.0-17.5) gm/dL Hct 30.3 L (39.0-53.0) % RDW 17.1 H (11.5-15.5) % Plt Count 495 H (150-450) k/uL Potassium 3.1 L (3.5-5.1) mmol/L Carbon Dioxide 31 H (22-30) mmol/L BUN 28 H (9-20) mg/dL POC Glucose (mg/dL) (75-99) mg/dL Calcium 10.8 H (8.4-10.2) mg/dL Angiotensin Convert Enz 7 L (8-52) U/L 02/01/18 02/01/18 02/01/18 Range/Units 11:56 14:05 16:56 RBC (4.30-5.90) m/uL Hgb (13.0-17.5) gm/dL Hct (39.0-53.0) % RDW (11.5-15.5) % Plt Count (150-450) k/uL Potassium 3.3 L (3.5-5.1) mmol/L Carbon Dioxide (22-30) mmol/L BUN (9-20) mg/dL POC Glucose (mg/dL) 104 H 214 H (75-99) mg/dL Calcium (8.4-10.2) mg/dL Angiotensin Convert Enz (8-52) U/L 02/01/18 02/01/18 Range/Units 20:02 20:54 RBC (4.30-5.90) m/uL Hgb (13.0-17.5) gm/dL Hct (39.0-53.0) % RDW (11.5-15.5) % Plt Count (150-450) k/uL Potassium 3.4 L (3.5-5.1) mmol/L Carbon Dioxide (22-30) mmol/L BUN (9-20) mg/dL POC Glucose (mg/dL) 127 H (75-99) mg/dL Calcium (8.4-10.2) mg/dL Angiotensin Convert Enz (8-52) U/L Laboratory Results WBC 9.2 k/uL (3.8-10.6) 02/01/18 05:46 RBC 3.39 m/uL (4.30-5.90) L 02/01/18 05:46 Hgb 9.4 gm/dL (13.0-17.5) L 02/01/18 05:46 Hct 30.3 % (39.0-53.0) L 02/01/18 05:46 MCV 89.4 fL (80.0-100.0) 02/01/18 05:46 MCH 27.8 pg (25.0-35.0) 02/01/18 05:46 MCHC 31.1 g/dL (31.0-37.0) 02/01/18 05:46 RDW 17.1 % (11.5-15.5) H 02/01/18 05:46 Plt Count 495 k/uL (150-450) H 02/01/18 05:46 Neutrophils % 79 % 02/01/18 05:46 Lymphocytes % 13 % 02/01/18 05:46 Monocytes % 3 % 02/01/18 05:46 Eosinophils % 4 % 02/01/18 05:46 Basophils % 0 % 02/01/18 05:46 Neutrophils # 7.2 k/uL (1.3-7.7) 02/01/18 05:46 Lymphocytes # 1.2 k/uL (1.0-4.8) 02/01/18 05:46 Monocytes # 0.3 k/uL (0-1.0) 02/01/18 05:46 Eosinophils # 0.4 k/uL (0-0.7) 02/01/18 05:46 Basophils # 0.0 k/uL (0-0.2) 02/01/18 05:46 Anisocytosis Slight 02/01/18 05:46 PT 10.9 sec (9.0-12.0) 01/29/18 16:45 INR 1.1 (<1.2) 01/29/18 16:45 APTT 22.9 sec (22.0-30.0) 01/29/18 16:45 Sodium 142 mmol/L (137-145) 02/01/18 05:46 Potassium 3.4 mmol/L (3.5-5.1) L 02/01/18 20:02 Chloride 99 mmol/L (98-107) 02/01/18 05:46 Carbon Dioxide 31 mmol/L (22-30) H 02/01/18 05:46 Anion Gap 12 mmol/L 02/01/18 05:46 BUN 28 mg/dL (9-20) H 02/01/18 05:46 Creatinine 1.00 mg/dL (0.66-1.25) 02/01/18 05:46 Est GFR (CKD-EPI)AfAm 86 (>60 ml/min/1.73 sqM) 02/01/18 05:46 Est GFR (CKD-EPI)NonAf 74 (>60 ml/min/1.73 sqM) 02/01/18 05:46 Glucose 90 mg/dL (74-99) 02/01/18 05:46 POC Glucose (mg/dL) 127 mg/dL (75-99) H 02/01/18 20:54 POC Glu Reel Blade Bender Furnace Tender ID Jaimee Hurley Candy 02/01/18 20:[address] Glu mg/dL 114 01/30/18 05:19 Hemoglobin A1c 5.6 % (4.0-6.0) 01/30/18 05:19 Calcium 10.8 mg/dL (8.4-10.2) H 02/01/18 05:46 Ionized Calcium Heidi 6.9 mg/dL (4.5-5.3) H* 01/30/18 05:19 Phosphorus 4.1 mg/dL (2.5-4.5) 01/29/18 16:45 Magnesium 1.8 mg/dL (1.6-2.3) 01/29/18 16:45 Total Bilirubin 0.3 mg/dL (0.2-1.3) 01/29/18 16:45 AST 24 U/L (17-59) 01/29/18 16:45 ALT 22 U/L (21-72) 01/29/18 16:45 Alkaline Phosphatase 54 U/L (38-126) 01/29/18 16:45 Total Creatine Kinase 29 U/L (55-170) L 01/29/18 16:45 CK-MB (CK-2) 1.9 ng/mL (0.0-2.4) 01/29/18 16:45 CK-MB (CK-2) Rel Index 6.6 01/29/18 16:45 Troponin I 0.045 ng/mL (0.000-0.034) H* 01/30/18 05:19 NT-Pro-B Natriuret Pep 77963 pg/mL 01/30/18 05:19 Total Protein 5.8 g/dL (6.3-8.2) L 01/29/18 16:45 Albumin 2.8 g/dL (3.5-5.0) L 01/29/18 16:45 Angiotensin Convert Enz 7 U/L (8-52) L 01/30/18 05:19 Urine Color Light Yellow 01/29/18 17:00 Urine Appearance Cloudy (Clear) 01/29/18 17:00 Urine pH 6.5 (5.0-8.0) 01/29/18 17:00 Ur Specific [place] 1.010 (1.001-1.035) 01/29/18 17:00 Urine Protein Trace (Negative) H 01/29/18 17:00 Urine Glucose (UA) Negative (Negative) 01/29/18 17:00 Urine Ketones Negative (Negative) 01/29/18 17:00 Urine Blood Negative (Negative) 01/29/18 17:00 Urine Nitrite Negative (Negative) 01/29/18 17:00 Urine Bilirubin Negative (Negative) 01/29/18 17:00 Urine Urobilinogen <2.0 mg/dL (<2.0) 01/29/18 17:00 Ur Leukocyte Esterase Negative (Negative) 01/29/18 17:00 Urine RBC 4 /hpf (0-5) 01/29/18 17:00 Urine WBC 6 /hpf (0-5) H 01/29/18 17:00 Urine Bacteria Rare /hpf (None) H 01/29/18 17:00 Urine Mucus Rare /hpf (None) H 01/29/18 17:00 Urine Yeast (Budding) Moderate /hpf (None) H 01/29/18 17:00 Stool Occult Blood Negative (Negative) 01/31/18 17:14 Microbiology 01/29/18 17:00 Urine,Clean Catch Urine Culture - Final Assessment and Plan (1) Altered mental status Narrative/Plan: 72-year-old male has had recent hospitalizations with increasing weakness and falls. He has some known underlying pulmonary disease. However now comes in with worsening confusion and some shortness of breath. His chest x -ray shows evidence of some interstitial changes potentially worsen the last check. It appears since his admission his confusion is improved. However he has had several recent hospitalizations with concerns to underlying disease process given the elevated inflammatory parameters, his significant weight loss and declining status. He's had multiple evaluations have included CT scans of the chest abdomen and pelvis and no brain without significant abnormalities except the interstitial disease within his lungs. The patient now has evidence of the markedly elevated calcium and ionized calcium. He has heart failure and there are some limits time which hydration can be given. In with this calcitonin will be given in attempts to reduce his calcium and improve his status. With the pulmonary disease and elevated calcium further evaluation for sarcoidosis is being done requesting an Mikey level, this could potentially tie together the sitting and inflammation and his pulmonary status and elevated calcium. Still remain concerned about an underlying malignancy. 01/31/2018 patient is slightly improved. Still agitated. Calcium is down to 11.9 with a calcitonin that was started. No positive cultures at this time. Hemoglobin is 9.8. Temperature is afebrile. Positive cultures. Remain concerned that the elevated calcium is impacting his mental status and hopefully assist number normalizes he will feel better. Etiology of the elevated calcium remains of concern, Mikey level is pending for further potential evaluation of sarcoidosis. 02/01/2018 the patient has further improvement. Agitation is improved. Calcium is further improved. No positive cultures. Being followed by multiple specialists including neurology. MRI of the brain is pending. Mikey level was normal. Etiology of the elevated calcium remains of great concern and without evidence of sarcoidosis but again be concerned to underlying malignancy. Current Visit: Yes Status: Acute Code(s): R41.82 - ALTERED MENTAL STATUS, UNSPECIFIED SNOMED Code(s): 603013342 (2) Diabetic ulcer of right foot associated with type 2 diabetes mellitus, with fat layer exposed Current Visit: No Status: Acute Code(s): E11.621 - TYPE 2 DIABETES MELLITUS WITH FOOT ULCER; L97.512 - NON-PRS CHRONIC ULCER OTH PRT RIGHT FOOT W FAT LAYER EXPOSED SNOMED Code(s): 3653468442813 (3) Serum calcium elevated Current Visit: Yes Status: Acute Code(s): E83.52 - HYPERCALCEMIA SNOMED Code(s): 44877945
[2018-02-01] MEDS: HALOPERIDOL 1 MG TAB PO PRN (21:55)
--- NOTE | 2018-02-02 01:58 | P.PN ---
Subjective Progress Note Date: 02/01/18 Principal diagnosis: Acute CHF exacerbation Patient is 72-year-old male with a known history of COPD, coronary artery disease with history of stent placement, CHF with diastolic dysfunction, hypertension, hyperlipidemia, diabetes type 2 and history of VT and other multiple medical problems came to ER with complaints of abdominal discomfort and weakness. He was recently hospitalized for congestive heart failure and was treated and released. The patient underwent cardiac catheterization in December 2017 that showed intermediate disease of the RCA and left circumflex. It was recommended that he continue with medical management. Patient denies any chest discomfort. Serial troponins are negative. His hemoglobin is 9, his hemoglobin last admission was above 10. He denies any dark or bright red blood per rectum. The patient does have unilateral swelling to the right lower extremity, venous Doppler was negative for DVT. Patient does have chronic foot ulcer and is on follow with Dr. Dixon as an outpatient. He has been up ambulating and does have shortness of breath but does not describe any worsening. He seen sitting up in bed he's in no acute distress. Chest x-ray showed nonspecific prominence of the pulmonary interstitium may reflect interstitial pneumonia with small effusions. Residual edema is felt to be less likely although not entirely excluded. BNP 11 500 Troponin 0.044, 0.039, 0.045 Acute abdominal series on admission showed advanced interstitial phase pulmonary edema and colonic fecal impaction. Patient did have bowel movement while in the ER. And relief of abdominal discomfort. 01/31/2018 Patient's breathing status is much improved today. Otherwise patient is still confused on and off. Patient was seen by neurology and MRI of the brain was ordered due to abnormal CT head. Calcium level is 11.9. willconsider CT chest with contrast if continues to be elevated. Pulmonary is on board.. No fever no chills. No nausea vomiting or abdominal pain. Patient says that he is feeling much better today. Otherwise no acute overnight issues 02/01/2018 Patient denied any complaints of chest pain or shortness of breath today. Seems to be more awake. MRI of the brain was done showed no acute new changes noted. Calcium level improved to 10.8. Likely due to dehydration and volume depletion. No fever no chills. Patient is being followed by neurology pulmonary and cardiology. Continues to be on IV Lasix. All other review of systems negative except the above Discussed with his at bedside Active Medications Aspirin (Aspirin) 81 mg PO HS [facility] Last Admin: 01/31/18 20:50 Dose: 81 mg Calcitonin [place] (Miacalcin) 200 unit SUBDERMAL DAILY [facility] Last Admin: 01/31/18 11:06 Dose: 200 unit Ceftriaxone Sodium (Rocephin) 1,000 mg IVP Q24HR [facility] Last Admin: 01/31/18 09:12 Dose: 1,000 mg Clopidogrel Bisulfate (Plavix) 75 mg PO DAILY [facility] Last Admin: 01/31/18 09:07 Dose: 75 mg Cyanocobalamin (Vitamin B-12) 1,000 mcg PO DAILY [facility] Last Admin: 01/31/18 09:07 Dose: 1,000 mcg Furosemide (Lasix) 40 mg IV Q12H [facility] Last Admin: 01/31/18 18:42 Dose: 40 mg Haloperidol (Haldol) 1 mg PO Q6H PRN PRN Reason: Agitation Last Admin: 01/31/18 20:50 Dose: 1 mg Heparin Sodium (Porcine) (Heparin) 5,000 unit SQ Q12HR [facility] Last Admin: 01/31/18 20:50 Dose: 5,000 unit Insulin Aspart (Novolog) 0 unit SQ ACHS [facility] PRN Reason: Protocol Last Admin: 01/31/18 22:46 Dose: Not Given Levothyroxine Sodium (Synthroid) 25 mcg PO DAILY@0630 [facility] Last Admin: 01/31/18 06:02 Dose: 25 mcg Lisinopril (Zestril) 10 mg PO [facility] Last Admin: 01/31/18 20:50 Dose: 10 mg Magnesium Hydroxide (Milk Of Magnesia) 2,400 mg PO DAILY PRN PRN Reason: Constipation Last Admin: 01/31/18 00:15 Dose: 2,400 mg Megestrol Acetate (Megace) 400 mg PO BID [facility] Last Admin: 01/31/18 20:50 Dose: 400 mg Metoprolol Tartrate (Lopressor) 25 mg PO BID [facility] Last Admin: 01/31/18 20:50 Dose: 25 mg Miscellaneous Information (Potassium Per Protocol) 1 each MISCELLANE DAILY PRN ; Protocol PRN Reason: Per Protocol Multivitamins (Theragran) 1 each PO DAILY@1200 [facility] Last Admin: 01/31/18 12:43 Dose: 1 each Multivitamins/Minerals (Ivite) 1 each PO DAILY [facility] Last Admin: 01/31/18 09:07 Dose: 1 each Pantoprazole Sodium (Protonix) 40 mg PO AC-BRKFST [facility] Last Admin: 01/31/18 06:03 Dose: 40 mg Pyridoxine HCl (Vitamin B-6) 100 mg PO DAILY [facility] Last Admin: 01/31/18 09:08 Dose: 100 mg Vitamin B Complex/Vit C/Vit E/Zinc (Z-Bec) 1 each PO DAILY [facility] Last Admin: 01/31/18 09:07 Dose: 1 each Objective - Vital Signs Vital signs: Vital Signs Temp 97.4 F L 02/01/18 15:40 Pulse 70 02/01/18 15:40 Resp 16 02/01/18 15:40 BP 117/77 02/01/18 15:40 Pulse Ox 95 02/01/18 15:40 Intake & Output 02/01/18 02/01/18 02/02/18 06:59 18:59 06:59 Intake Total 50 340 Output Total 2400 600 750 Balance -2350 -260 -750 Weight 65.4 kg Intake: Oral 50 340 Output: Urine 2400 600 750 Uretheral ([place]) 2400 750 Other: # Bowel Movements 1 0 - Exam PHYSICAL EXAMINATION: Patient is lying in the bed comfortably, no acute distress, awake alert and oriented. But poor historian. HEENT: Normocephalic. Neck is supple. Pupils reactive. Nostrils clear. Oral cavity is moist. Ears reveal no drainage. Neck reveals no JVD, carotid bruits, or thyromegaly. CHEST EXAMINATION: Trachea is central. Symmetrical expansion. bibasilar crackles. Air entry improved. No wheezing CARDIAC: Normal S1, S2 with no gallops. No murmurs ABDOMEN: Soft. Nontender. Bowel sounds normal. No organomegaly. No abdominal bruits. Extremities: Right lower extremities 2+ edema. Right foot ulcer is bandaged.. No clubbing or cyanosis Neurologically awake, alert, oriented x3 with well-coordinated movements. No focal deficits noted Skin: No rash or skin lesions. Psychiatric: Cooperative. Could not be assessed completely Musculoskeletal: No joint swelling or deformity. Normal range of motion. - Labs CBC & Chem 7: 02/01/18 05:46 02/01/18 20:02 Labs: Abnormal Lab Results - Last 24 Hours (Table) 01/30/18 02/01/18 02/01/18 Range/Units 05:19 05:46 05:46 RBC 3.39 L (4.30-5.90) m/uL Hgb 9.4 L (13.0-17.5) gm/dL Hct 30.3 L (39.0-53.0) % RDW 17.1 H (11.5-15.5) % Plt Count 495 H (150-450) k/uL Potassium 3.1 L (3.5-5.1) mmol/L Carbon Dioxide 31 H (22-30) mmol/L BUN 28 H (9-20) mg/dL POC Glucose (mg/dL) (75-99) mg/dL Calcium 10.8 H (8.4-10.2) mg/dL Angiotensin Convert Enz 7 L (8-52) U/L 02/01/18 02/01/18 02/01/18 Range/Units 11:56 14:05 16:56 RBC (4.30-5.90) m/uL Hgb (13.0-17.5) gm/dL Hct (39.0-53.0) % RDW (11.5-15.5) % Plt Count (150-450) k/uL Potassium 3.3 L (3.5-5.1) mmol/L Carbon Dioxide (22-30) mmol/L BUN (9-20) mg/dL POC Glucose (mg/dL) 104 H 214 H (75-99) mg/dL Calcium (8.4-10.2) mg/dL Angiotensin Convert Enz (8-52) U/L 02/01/18 02/01/18 Range/Units 20:02 20:54 RBC (4.30-5.90) m/uL Hgb (13.0-17.5) gm/dL Hct (39.0-53.0) % RDW (11.5-15.5) % Plt Count (150-450) k/uL Potassium 3.4 L (3.5-5.1) mmol/L Carbon Dioxide (22-30) mmol/L BUN (9-20) mg/dL POC Glucose (mg/dL) 127 H (75-99) mg/dL Calcium (8.4-10.2) mg/dL Angiotensin Convert Enz (8-52) U/L Assessment and Plan Assessment: Mild Acute CHF due to diastolic dysfunction. Elevated BNP and interstitial edema. Altered mental Status. possible encephalopathy. Ruled out acute CVA Hypercalcemia 11.9---10.8 COPD/asthma stable Elevated troponin level. Unlikely ACS. Patient had recent cardiac catheterization in December 2017 History of coronary artery disease status post stent placement previously Generalized weakness and frequent falls Abdominal discomfort due to colonic fecal impaction resolved with bowel movement on admission. Hypothyroidism Diabetes type 2 GERD Hypertension Degenerative joint disease Chronic anemia Right diabetic foot ulcer . diabetic DVT prophylaxis heparin subcu Plan: Patient will be continued on aspirin Plavix and add metoprolol.. Continue with IV diuresis with Lasix. Continue the breathing treatments and Advair. Cardiology and pulmonary is following. Patient was seen by neurology due to altered mental status and recommended MRI of the brain. Continue with the home vitamins and Megace. Encourage oral intake and PTOT. Continue antibiotics in the form of ceftriaxone and ID is following. Medical management and further recommendations based on the clinical course. Prognosis is guarded with multiple medical problems and comorbid conditions. Time with Patient: Greater than 30
[2018-02-02 05:54] LABS: Glucose,Whole Blood 87 mg/dL (75-99)
[2018-02-02] MEDS: INSULIN ASPART 100 UNIT/ML 1 ML 10 ML VIAL SQ SCH ×4 (06:04→21:29)
[2018-02-02] MEDS: PANTOPRAZOLE 40 MG TABLET PO SCH (06:09)
[2018-02-02] MEDS: FUROSEMIDE 10 MG/ML 4 ML VIAL IV SCH ×2 (06:09→19:56)
[2018-02-02] MEDS: LEVOTHYROXINE 25 MCG TAB PO SCH (06:09)
[2018-02-02 07:29] LABS: Blood Urea Nitrogen 24 mg/dL (9-20); Calcium 10.2 mg/dL (8.4-10.2); Carbon Dioxide 28 mmol/L (22-30); Glucose 83 mg/dL (74-99); Magnesium 1.7 mg/dL (1.6-2.3); Potassium 3.7 mmol/L (3.5-5.1); Sodium 141 mmol/L (137-145)
[2018-02-02 07:33] LABS: Anion Gap 12 mmol/L; Chloride 101 mmol/L (98-107)
[2018-02-02] MEDS ORDERED: POTASSIUM CHLORIDE ER 20 MEQ TAB.ER PO SCH (08:00)
[2018-02-02] MEDS: cefTRIAXone IN SWFI 1,000 MG/10 ML SYRINGE IVP SCH (09:41)
[2018-02-02] MEDS: B COMPLEX-VIT C-VIT E-ZINC 1 EACH TAB PO SCH (09:42)
[2018-02-02] MEDS: HEPARIN SODIUM,PORCINE 5,000 UNIT/ML 1 ML VIAL SQ SCH ×2 (09:42→19:56)
[2018-02-02] MEDS: CLOPIDOGREL 75 MG TAB PO SCH (09:42)
[2018-02-02] MEDS: PYRIDOXINE 50 MG TAB PO SCH (09:42)
[2018-02-02] MEDS: MEGESTROL 400 MG/10 ML CUP PO SCH ×2 (09:42→19:56)
[2018-02-02] MEDS: CYANOCOBALAMIN 500 MCG TAB PO SCH (09:42)
[2018-02-02] MEDS: METOPROLOL TARTRATE 25 MG TAB PO SCH ×2 (09:42→19:56)
[2018-02-02] MEDS: VIT A,C & E-LUTEIN-MINERALS 1 EACH TAB PO SCH (09:44)
[2018-02-02] MEDS: HALOPERIDOL 1 MG TAB PO PRN ×2 (09:50→19:56)
[2018-02-02 11:53] LABS: Glucose,Whole Blood 140 mg/dL (75-99)
[2018-02-02] MEDS: CALCITONIN INJ 200 UNIT/ML (MDV) VIAL SQ SCH (12:12)
[2018-02-02] MEDS: MULTIVITAMINS, THERA 1 EACH TAB PO SCH (12:12)
--- NOTE | 2018-02-02 16:11 | P.PN ---
Subjective Progress Note Date: 02/02/18 This is a 72-year-old male patient presented to the emergency department with chief complaint of weakness. He was recently hospitalized for congestive heart failure and was treated and released. The patient underwent cardiac catheterization in December 2017 that showed intermediate disease of the RCA and left circumflex. He follows with Dr. Covarrubias in the office on a regular basis and does have history of stent placement in the past, hypertension and PVD. It was recommended that he continue with medical management. Patient denies any chest discomfort. Serial troponins are negative. His hemoglobin is 9, his hemoglobin last admission was above 10. He denies any dark or bright red blood per rectum. The patient does have unilateral swelling to the right lower extremity, venous Doppler was negative for DVT. No chest x-ray or BNP level was obtained. He does have mild crackles posteriorly but no JVD. He has been up ambulating and does have shortness of breath but does not describe any worsening. He seen sitting up in bed he's in no acute distress. 02/01/2018 Patient was seen and examined this morning, repeat chest x-ray of today did show residual heart failure although there has been some improvement. Weight is down 4 kg today, creatinine is 1.0. 02/02/2018 Patient seen and examined this morning, feeling much better overall. Was up in the chair earlier today. Sodium 141, potassium 3.7, BUN 24, creatinine 0.8. Magnesium 1.7. Echocardiogram with Doppler study was performed revealed a normal left ventricular systolic function. We will continue current dose of IV Lasix. Repeat chest x-ray tomorrow morning. Objective - Vital Signs Vital signs: Vital Signs Temp 97 F L 02/02/18 08:54 Pulse 72 02/02/18 11:25 Resp 16 02/02/18 11:25 BP 129/58 02/02/18 11:25 Pulse Ox 98 02/02/18 11:25 Intake & Output 02/01/18 02/02/18 02/02/18 18:59 06:59 18:59 Intake Total 340 480 Output Total 600 2450 1050 Balance -260 2450 -570 Weight 64.9 kg 64.9 kg Intake: Oral 340 480 Output: Urine 600 2450 1050 Uretheral ([place]) 750 Other: Voiding Method Indwelling Catheter Indwelling Catheter # Bowel Movements 0 - Exam PHYSICAL EXAMINATION: HEENT: Head is atraumatic, normocephalic. Pupils equal, round. Neck is supple. There is no elevated jugular venous pressure. HEART EXAMINATION: Heart S1, S2 normal. No murmur or gallop heard. CHEST EXAMINATION: Reveal fine rales to bilateral bases. ABDOMEN: Soft, nontender. Bowel sounds are heard. No organomegaly noted. EXTREMITIES: 2+ peripheral pulses with trace evidence of peripheral edema and no calf tenderness noted. NEUROLOGIC patient is awake, alert and oriented -3. . - Labs CBC & Chem 7: 02/01/18 05:46 02/02/18 06:31 Labs: Abnormal Lab Results - Last 24 Hours (Table) 02/01/18 02/01/18 02/01/18 Range/Units 16:56 20:02 20:54 Potassium 3.4 L (3.5-5.1) mmol/L BUN (9-20) mg/dL POC Glucose (mg/dL) 214 H 127 H (75-99) mg/dL 02/02/18 02/02/18 Range/Units 06:31 11:42 Potassium (3.5-5.1) mmol/L BUN 24 H (9-20) mg/dL POC Glucose (mg/dL) 140 H (75-99) mg/dL Assessment and Plan Plan: Assessment and plan #1 diastolic congestive heart failure acute on chronic #2 acute on chronic anemia #3 elevated troponins, not consistent with acute ischemia, patient had a cath In 2018. #4 weakness Number 5 diabetes #6 CAD with prior stent #7 hyperlipidemia #8 hypertension Plan From cardiology's perspective, we'll recommend to continue the patient on his current dose of Lasix. Check lytes BUN and creatinine in the morning. DNP note has been reviewed, I agree with a documented findings and plan of care. Patient was seen and examined.
[2018-02-02] MEDS: MAGNESIUM HYDROXIDE 2,400 MG/10 ML CUP PO PRN (16:28)
[2018-02-02 16:30] LABS: Glucose,Whole Blood 174 mg/dL (75-99)
[2018-02-02] MEDS: LISINOPRIL 10 MG TAB PO SCH (19:56)
[2018-02-02] MEDS: ASPIRIN 81 MG PO SCH (19:56)
--- NOTE | 2018-02-02 21:54 | P.PN ---
Subjective Progress Note Date: 02/02/18 Principal diagnosis: Confusion 72-year-old male recently presented to Hospital status post fall at home. He had apparently had a slip and fall in his bathroom, relates that he was on the tile a great difficulty trying to get up off the floor. Resulting in the injury to the bridge of his nose, his forehead is hands minimally into his bilateral lower extremities especially at the knees. He been recently seen in the office were without evidence of acute worsening of the right foot plantar ulceration. He had had some treatment for the left foot diabetic ulceration occluded antibiotic therapy. And was showing some improvement. However when he presented to the office there was a marked worsening of that ulceration and constantly he was started on antibiotic therapy and local wound care with medical when he was initiated. Patient then presented to hospital with falls, significant weakness dehydration and chest pain. 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 He eventually improved enough to be discharged home. He is followed in the outpatient setting for the right plantar ulceration that was responding quite well to the therahoney dressing. Is related that the patient became very disoriented and very weak. Family was very concerned and he was brought to hospital. With the ulceration the infectious diseases consultation was requested. It is noted at the time of the consult the patient had evidence of significant hypercalcemia. The patient has had a trend for this just very recently. He's also had difficulties with elevated inflammatory parameters and workup for autoimmune disease has been negative. However now with a markedly elevated calcium will also evaluate for sarcoidosis. 01/31/2018 patient remains agitated and requires a sitter 02/01/2018 patient is now less agitated. No longer has a sitter. Family members present and the patient is doing better oriented to all but time, thought it was 1984. With this improving calcium appears to be having some improving mental status. Been followed by cardiology severely dilated left atrium was noted by echocardiogram. 02/02/2018 has further improvement but still with confusion at times. Seems comfortable and is not as worried since there has been progress, but like the team is inquiring as to etiology of the hypercalcemia. Objective - Vital Signs Vital signs: Vital Signs Temp 98 F 02/02/18 19:54 Pulse 76 02/02/18 19:54 Resp 18 02/02/18 20:00 BP 130/60 02/02/18 19:54 Pulse Ox 96 02/02/18 19:54 Intake & Output 02/02/18 02/02/18 02/03/18 06:59 18:59 06:59 Intake Total 955 Output Total 2450 1400 Balance -2450 -445 Weight 64.9 kg 64.9 kg Intake: Oral 955 Output: Urine 2450 1400 Uretheral ([place]) 750 Other: Voiding Method Indwelling Catheter Indwelling Catheter Indwelling Catheter - Exam 72-year-old male who is consuming more week until appearance the last time he was seen in the office, also has some confusion. HEENT: Anicteric conjunctiva are pink and moist nasal mucosa grossly intact without significant lesions, there is no thrush. Patient is evidence of the injury to the bridge of his nose with an eschar in place, and has the abrasion on his forehead also besides appear to have no jenny purulence and no drainage minimal surrounding erythema Neck: The neck is supple without significant lymphadenopathy or thyromegaly. Lungs: Symmetrical air entry is noted few expiratory wheezes are heard few basilar crackles are heard. No dullness or egophony is noted. Heart: Irregular with an audible S1 and S2 soft S4 no distinct murmur click or rub PMI was nondisplaced Abdomen: Positive bowel sounds soft and nontender without palpable masses or organomegaly. There was no guarding or rebound. Extremities: Patient is evidence of the recent fall he has evidence of some irritation to his hands but no jenny open ulcerations in the IV site appears to be intact. The bilateral reduction ratio evidence of the abrasions of bilateral knees, has evidence of abrasion to his toes. And then on the right foot plantar has evidence of the diabetic foot ulceration that appears to have penetration through the fat layer, there is some minimal erythema but no purulent drainage at the site. Please refer to the nursing documentation for the photography of these ulcerations and injuries Neuro: The patient is awake and alert Without focal deficits awake alert oriented to person and place Vadim for time but was 2088. Otherwise is much more interactive and stable today. - Labs CBC & Chem 7: 02/01/18 05:46 02/02/18 06:31 Labs: Abnormal Lab Results - Last 24 Hours (Table) 02/02/18 02/02/18 02/02/18 Range/Units 06:31 11:42 16:26 BUN 24 H (9-20) mg/dL POC Glucose (mg/dL) 140 H 174 H (75-99) mg/dL Laboratory Results WBC 9.2 k/uL (3.8-10.6) 02/01/18 05:46 RBC 3.39 m/uL (4.30-5.90) L 02/01/18 05:46 Hgb 9.4 gm/dL (13.0-17.5) L 02/01/18 05:46 Hct 30.3 % (39.0-53.0) L 02/01/18 05:46 MCV 89.4 fL (80.0-100.0) 02/01/18 05:46 MCH 27.8 pg (25.0-35.0) 02/01/18 05:46 MCHC 31.1 g/dL (31.0-37.0) 02/01/18 05:46 RDW 17.1 % (11.5-15.5) H 02/01/18 05:46 Plt Count 495 k/uL (150-450) H 02/01/18 05:46 Neutrophils % 79 % 02/01/18 05:46 Lymphocytes % 13 % 02/01/18 05:46 Monocytes % 3 % 02/01/18 05:46 Eosinophils % 4 % 02/01/18 05:46 Basophils % 0 % 02/01/18 05:46 Neutrophils # 7.2 k/uL (1.3-7.7) 02/01/18 05:46 Lymphocytes # 1.2 k/uL (1.0-4.8) 02/01/18 05:46 Monocytes # 0.3 k/uL (0-1.0) 02/01/18 05:46 Eosinophils # 0.4 k/uL (0-0.7) 02/01/18 05:46 Basophils # 0.0 k/uL (0-0.2) 02/01/18 05:46 Anisocytosis Slight 02/01/18 05:46 PT 10.9 sec (9.0-12.0) 01/29/18 16:45 INR 1.1 (<1.2) 01/29/18 16:45 APTT 22.9 sec (22.0-30.0) 01/29/18 16:45 Sodium 141 mmol/L (137-145) 02/02/18 06:31 Potassium 3.7 mmol/L (3.5-5.1) 02/02/18 06:31 Chloride 101 mmol/L (98-107) 02/02/18 06:31 Carbon Dioxide 28 mmol/L (22-30) 02/02/18 06:31 Anion Gap 12 mmol/L 02/02/18 06:31 BUN 24 mg/dL (9-20) H 02/02/18 06:31 Creatinine 0.86 mg/dL (0.66-1.25) 02/02/18 06:31 Est GFR (CKD-EPI)AfAm >90 (>60 ml/min/1.73 sqM) 02/02/18 06:31 Est GFR (CKD-EPI)NonAf 86 (>60 ml/min/1.73 sqM) 02/02/18 06:31 Glucose 83 mg/dL (74-99) 02/02/18 06:31 POC Glucose (mg/dL) 174 mg/dL (75-99) H 02/02/18 16:26 POC Glu Flaring Machine Operator ID Sherine Thomas 02/02/18 16:[address] Glu mg/dL 114 01/30/18 05:19 Hemoglobin A1c 5.6 % (4.0-6.0) 01/30/18 05:19 Calcium 10.2 mg/dL (8.4-10.2) 02/02/18 06:31 Ionized Calcium Heidi 6.9 mg/dL (4.5-5.3) H* 01/30/18 05:19 Phosphorus 4.1 mg/dL (2.5-4.5) 01/29/18 16:45 Magnesium 1.7 mg/dL (1.6-2.3) 02/02/18 06:31 Total Bilirubin 0.3 mg/dL (0.2-1.3) 01/29/18 16:45 AST 24 U/L (17-59) 01/29/18 16:45 ALT 22 U/L (21-72) 01/29/18 16:45 Alkaline Phosphatase 54 U/L (38-126) 01/29/18 16:45 Total Creatine Kinase 29 U/L (55-170) L 01/29/18 16:45 CK-MB (CK-2) 1.9 ng/mL (0.0-2.4) 01/29/18 16:45 CK-MB (CK-2) Rel Index 6.6 01/29/18 16:45 Troponin I 0.045 ng/mL (0.000-0.034) H* 01/30/18 05:19 NT-Pro-B Natriuret Pep 72105 pg/mL 01/30/18 05:19 Total Protein 5.8 g/dL (6.3-8.2) L 01/29/18 16:45 Albumin 2.8 g/dL (3.5-5.0) L 01/29/18 16:45 Angiotensin Convert Enz 7 U/L (8-52) L 01/30/18 05:19 Urine Color Light Yellow 01/29/18 17:00 Urine Appearance Cloudy (Clear) 01/29/18 17:00 Urine pH 6.5 (5.0-8.0) 01/29/18 17:00 Ur Specific [place] 1.010 (1.001-1.035) 01/29/18 17:00 Urine Protein Trace (Negative) H 01/29/18 17:00 Urine Glucose (UA) Negative (Negative) 01/29/18 17:00 Urine Ketones Negative (Negative) 01/29/18 17:00 Urine Blood Negative (Negative) 01/29/18 17:00 Urine Nitrite Negative (Negative) 01/29/18 17:00 Urine Bilirubin Negative (Negative) 01/29/18 17:00 Urine Urobilinogen <2.0 mg/dL (<2.0) 01/29/18 17:00 Ur Leukocyte Esterase Negative (Negative) 01/29/18 17:00 Urine RBC 4 /hpf (0-5) 01/29/18 17:00 Urine WBC 6 /hpf (0-5) H 01/29/18 17:00 Urine Bacteria Rare /hpf (None) H 01/29/18 17:00 Urine Mucus Rare /hpf (None) H 01/29/18 17:00 Urine Yeast (Budding) Moderate /hpf (None) H 01/29/18 17:00 Stool Occult Blood Negative (Negative) 01/31/18 17:14 Microbiology 01/29/18 17:00 Urine,Clean Catch Urine Culture - Final Assessment and Plan (1) Altered mental status Narrative/Plan: 72-year-old male has had recent hospitalizations with increasing weakness and falls. He has some known underlying pulmonary disease. However now comes in with worsening confusion and some shortness of breath. His chest x -ray shows evidence of some interstitial changes potentially worsen the last check. It appears since his admission his confusion is improved. However he has had several recent hospitalizations with concerns to underlying disease process given the elevated inflammatory parameters, his significant weight loss and declining status. He's had multiple evaluations have included CT scans of the chest abdomen and pelvis and no brain without significant abnormalities except the interstitial disease within his lungs. The patient now has evidence of the markedly elevated calcium and ionized calcium. He has heart failure and there are some limits time which hydration can be given. In with this calcitonin will be given in attempts to reduce his calcium and improve his status. With the pulmonary disease and elevated calcium further evaluation for sarcoidosis is being done requesting an Mikey level, this could potentially tie together the sitting and inflammation and his pulmonary status and elevated calcium. Still remain concerned about an underlying malignancy. 01/31/2018 patient is slightly improved. Still agitated. Calcium is down to 11.9 with a calcitonin that was started. No positive cultures at this time. Hemoglobin is 9.8. Temperature is afebrile. Positive cultures. Remain concerned that the elevated calcium is impacting his mental status and hopefully assist number normalizes he will feel better. Etiology of the elevated calcium remains of concern, Mikey level is pending for further potential evaluation of sarcoidosis. 02/01/2018 the patient has further improvement. Agitation is improved. Calcium is further improved. No positive cultures. Being followed by multiple specialists including neurology. MRI of the brain is pending. Mikey level was normal. Etiology of the elevated calcium remains of great concern and without evidence of sarcoidosis but again be concerned to underlying malignancy. 02/02/2018 some improvement is noted, MRI without new lesions but reveals the ongoing atrophy of white matter with age. Patient still not at baseline but calcium is slowly improving. Etiology of the elevated calcium remains of concern , with the lung abnormalities difficult to exclude underlaying pathology. The foot ulcer is stable and continue the wound care and antibiotic therapy. Current Visit: Yes Status: Acute Code(s): R41.82 - ALTERED MENTAL STATUS, UNSPECIFIED SNOMED Code(s): 916196939 (2) Diabetic ulcer of right foot associated with type 2 diabetes mellitus, with fat layer exposed Current Visit: No Status: Acute Code(s): E11.621 - TYPE 2 DIABETES MELLITUS WITH FOOT ULCER; L97.512 - NON-PRS CHRONIC ULCER OTH PRT RIGHT FOOT W FAT LAYER EXPOSED SNOMED Code(s): 4007439483480 (3) Serum calcium elevated Current Visit: Yes Status: Acute Code(s): E83.52 - HYPERCALCEMIA SNOMED Code(s): 51868862
[2018-02-02 22:00] LABS: Glucose,Whole Blood 174 mg/dL (75-99)
--- NOTE | 2018-02-02 22:23 | P.PN ---
Subjective 72 yo M presents with generalized weakness with recent hospitalization for acute CHF, has undergone workup of CT of the chest , abd/Pelvis which shows interstitial pulmonary disease/congestion , MRI of brain: cerebral atrophy and no acute infarction, hypercalcemia , ACI level was normal for suspected sarcoidosis, Patient is seen and examined by me at bedside Known new complaints No CP/SOB, no change in urine bowel habits, no fever Objective - Vital Signs Vital signs: Vital Signs Temp 97 F L 02/02/18 08:54 Pulse 72 02/02/18 11:25 Resp 16 02/02/18 11:25 BP 129/58 02/02/18 11:25 Pulse Ox 98 02/02/18 11:25 Intake & Output 02/01/18 02/02/18 02/02/18 18:59 06:59 18:59 Intake Total 340 480 Output Total 600 2450 1050 Balance -260 -2450 -570 Weight 64.9 kg 64.9 kg Intake: Oral 340 480 Output: Urine 600 2450 1050 Uretheral ([place]) 750 Other: Voiding Method Indwelling Catheter Indwelling Catheter # Bowel Movements 0 - Exam Constitutional: No acute distress, conversant, pleasant Eyes: Anicteric sclerae, moist conjunctiva, no lid-lag PERRLA ENMT: NC/AT Oropharynx clear, no erythema, exudates Neck: Supple, FROM, no masses, or JVD No carotid bruits No thyromegaly Lungs: Clear to auscultation Clear to percussion Normal respiratory effort, no accessory muscle use Cardiovascular: Heart regular in rate and rhythm, No murmurs, gallops, or rubs No peripheral edema Abdominal: Soft Nontender, no guarding, rebound or rigidity Abdomen moving with respiration Normoactive bowel sounds No hepatomegaly, No splenomegaly No palpable mass No abdominal wall hernia noted Skin: Normal temperature, tone, texture, turgor No induration No subcutaneous nodules No rash, lesions No ulcers Extremities: No digital cyanosis No clubbing Pedal pulses intact and symmetrical Radial pulses intact and symmetrical Normal gait and station No calf tenderness Psychiatric: Alert and oriented to person, place and time Appropriate affect Intact judgement Neuro: Muscles Strength 5/5 in all 4 extremities Sensation to light touch grossly present throughout Cranial nerves II-XII grossly intact No focal sensory deficits - Labs CBC & Chem 7: 02/01/18 05:46 02/02/18 06:31 Labs: Abnormal Lab Results - Last 24 Hours (Table) 02/01/18 02/01/18 02/02/18 Range/Units 20:02 20:54 06:31 Potassium 3.4 L (3.5-5.1) mmol/L BUN 24 H (9-20) mg/dL POC Glucose (mg/dL) 127 H (75-99) mg/dL 02/02/18 02/02/18 Range/Units 11:42 16:26 Potassium (3.5-5.1) mmol/L BUN (9-20) mg/dL POC Glucose (mg/dL) 140 H 174 H (75-99) mg/dL Assessment and Plan Plan: Mild Acute CHF due to diastolic dysfunction. Elevated BNP and interstitial edema. Altered mental Status. possible encephalopathy. Ruled out acute CVA Hypercalcemia 11.9---10.8 COPD/asthma stable Elevated troponin level. Unlikely ACS. Patient had recent cardiac catheterization in December 2017 History of coronary artery disease status post stent placement previously Generalized weakness and frequent falls Abdominal discomfort due to colonic fecal impaction resolved with bowel movement on admission. Hypothyroidism Diabetes type 2 GERD Hypertension Degenerative joint disease Chronic anemia Right diabetic foot ulcer . diabetic DVT prophylaxis heparin subcu Plan: 72 yo M presents with generalized weakness with recent hospitalization for acute CHF, -generalized weaknesss, and acute CHF , Patient will be continued on aspirin Plavix and add metoprolol.. Continue with IV diuresis with Lasix. Continue the breathing treatments and Advair. CT of the chest , abd/Pelvis which shows interstitial pulmonary disease/congestion, Cardiology and pulmonary is following. PTOT. -Patient was seen by neurology due to altered mental status , MRI of brain: cerebral atrophy and no acute infarction, could be multifactorial from the hypercalcemia, acute chf , deconditioning and/or others - hypercalcemia , ACI level was normal for suspected sarcoidosis, etiology is not clear -Continue antibiotics in the form of ceftriaxone and ID is following. Prognosis is guarded with multiple medical problems and comorbid conditions.
[2018-02-03] MEDS: HALOPERIDOL 1 MG TAB PO PRN ×2 (03:11→08:42)
[2018-02-03] MEDS: FUROSEMIDE 10 MG/ML 4 ML VIAL IV SCH (05:56)
[2018-02-03] MEDS: LEVOTHYROXINE 25 MCG TAB PO SCH (05:56)
[2018-02-03] MEDS: PANTOPRAZOLE 40 MG TABLET PO SCH (05:56)
[2018-02-03 06:26] LABS: Glucose,Whole Blood 96 mg/dL (75-99)
[2018-02-03 06:33] LABS: Anisocytosis Slight; Basophils % (A) 0 %; Eosinophils # (A) 0.8 k/uL (0-0.7); Eosinophils % (A) 8 %; HCT 33.1 % (39.0-53.0); HGB 10.7 gm/dL (13.0-17.5); Lymphocytes # (A) 1.7 k/uL (1.0-4.8); Lymphocytes % (A) 17 %; MCH 28.7 pg (25.0-35.0); MCHC 32.1 g/dL (31.0-37.0); MCV 89.3 fL (80.0-100.0); Monocytes # (A) 0.4 k/uL (0-1.0); Monocytes % (A) 4 %; Neutrophils # (A) 6.7 k/uL (1.3-7.7); Neutrophils % (A) 69 %; Platelet Count 571 k/uL (150-450); RBC 3.71 m/uL (4.30-5.90); RDW 16.8 % (11.5-15.5); WBC 9.7 k/uL (3.8-10.6)
[2018-02-03 06:44] LABS: Anion Gap 12 mmol/L; Blood Urea Nitrogen 27 mg/dL (9-20); Calcium 9.7 mg/dL (8.4-10.2); Carbon Dioxide 29 mmol/L (22-30); Chloride 101 mmol/L (98-107); Glucose 95 mg/dL (74-99); Potassium 3.9 mmol/L (3.5-5.1); Sodium 142 mmol/L (137-145)
[2018-02-03] MEDS: INSULIN ASPART 100 UNIT/ML 1 ML 10 ML VIAL SQ SCH ×4 (06:49→21:49)
--- NOTE | 2018-02-03 07:26 | P.PN ---
Subjective Progress Note Date: 02/02/18 This patient is a 72-year-old male who is being evaluated for episode of confusion and recent falls. Patient was found on admission to have evidence of hypercalcemia. He has been treated for the elevated calcium levels and today his blood tests reveals total calcium to be 10.8. His levels are dropping slowly. With the lowering of the serum calcium level there has been some improvement in his mental status as well. He seemed to be doing better in terms of his mental status and is more alert and conversant. The patient's was at bedside and she is noted improvement in his mental status today. The patient is being evaluated for further causes of delirium and mental status changes and is scheduled to undergo MRI of the brain. We will review the results tomorrow if available. MRI of the brain reveals chronic white matter changes. There was no evidence of acute stroke. No evidence of any enhancing lesions. There is diffuse white matter changes in both hemispheres suggesting possibility of vascular dementia. The patient seems to be otherwise very cooperative with the nursing staff. He was less agitated today according to the . The hypercalcemia still a concern for possibility of underlying malignancy and other etiologies are being considered. Patient is being followed by Dr. Dixon was ordered an Mikey level for this patient to further evaluate for sarcoidosis. The patient seems to be resting comfortably. We will reevaluate him tomorrow after completion of his MRI. His overall prognosis at this time remains guarded. Objective - Vital Signs Vital signs: Vital Signs Temp 98 F 02/02/18 19:54 Pulse 76 02/02/18 19:54 Resp 18 02/02/18 19:54 BP 130/60 02/02/18 19:54 Pulse Ox 96 02/02/18 19:54 Intake & Output 02/02/18 02/02/18 02/03/18 06:59 18:59 06:59 Intake Total 955 Output Total 2450 1400 Balance -2450 -445 Weight 64.9 kg 64.9 kg Intake: Oral 955 Output: Urine 2450 1400 Uretheral ([place]) 750 Other: Voiding Method Indwelling Catheter Indwelling Catheter - Exam Physical examination: PHYSICAL EXAMINATION: Patient is resting comfortably in bed. VITAL SIGNS: Blood pressure is [1:30/60]. Heart rate is [76]. Respiration is [18 ]. Temperature is [98.0]. HEENT: Head is atraumatic, neck is supple, there were no carotid bruits. CHEST: Lungs are clear to auscultation and percussion. CARDIAC: S1, S2 normal rate and rhythm. There is no murmur. ABDOMEN: Soft and nontender. Bowel sounds are present. EXTREMITIES: There is no pedal edema. Peripheral pulses are present. Neurological examination: Patient is awake and alert oriented 3. His speech is fluent with no evidence of any aphasia or dysarthria. His memory and intellectual functions show improvement as compared to yesterday. He is less agitated today. Cranial nerves II through XII are grossly intact. Motor examination fails to reveal any focal weakness. Deep tendon reflexes are 1+ and symmetric. Plantar responses flexor bilaterally. Coordination and gait could not be assessed at this time. - Labs CBC & Chem 7: 02/03/18 05:56 02/03/18 05:56 Labs: Abnormal Lab Results - Last 24 Hours (Table) 02/01/18 02/01/18 02/02/18 Range/Units 20:02 20:54 06:31 Potassium 3.4 L (3.5-5.1) mmol/L BUN 24 H (9-20) mg/dL POC Glucose (mg/dL) 127 H (75-99) mg/dL 02/02/18 02/02/18 Range/Units 11:42 16:26 Potassium (3.5-5.1) mmol/L BUN (9-20) mg/dL POC Glucose (mg/dL) 140 H 174 H (75-99) mg/dL Assessment and Plan (1) Acute encephalopathy Current Visit: Yes Status: Acute Code(s): G93.40 - ENCEPHALOPATHY, UNSPECIFIED SNOMED Code(s): 39327680 (2) Hypercalcemia Current Visit: Yes Status: Acute Code(s): E83.52 - HYPERCALCEMIA SNOMED Code(s): 14264220 (3) CHF (congestive heart failure) Current Visit: Yes Status: Acute Code(s): I50.9 - HEART FAILURE, UNSPECIFIED SNOMED Code(s): 05260900 (4) Diabetes mellitus Current Visit: No Status: Acute Code(s): E11.9 - TYPE 2 DIABETES MELLITUS WITHOUT COMPLICATIONS SNOMED Code(s): 34677584 (5) Diabetic ulcer of right foot associated with type 2 diabetes mellitus, with fat layer exposed Current Visit: No Status: Acute Code(s): E11.621 - TYPE 2 DIABETES MELLITUS WITH FOOT ULCER; L97.512 - NON-PRS CHRONIC ULCER OTH PRT RIGHT FOOT W FAT LAYER EXPOSED SNOMED Code(s): 3568925286519 (6) Non-ST elevation myocardial infarction (NSTEMI) Current Visit: No Status: Acute Code(s): I21.4 - NON-ST ELEVATION (NSTEMI) MYOCARDIAL INFARCTION SNOMED Code(s): 253241177 (7) Wound, open, foot Current Visit: No Status: Acute Code(s): S91.309A - UNSPECIFIED OPEN WOUND, UNSPECIFIED FOOT, INITIAL ENCOUNTER SNOMED Code(s): 844334765 Plan: This patient is a 72-year-old male being evaluated for episode of confusion and recent fall. He was admitted to hospital and was found to have evidence of hypercalcemia. He has been treated for this condition and his serum calcium level today is come down to 10.8. He is showing improvement in his mental status today. He is to undergo MRI of the brain with and without gadolinium to be done later. We will await the results tomorrow. We will continue close neurological follow-up for the patient. According to his who is at bedside he seems to be doing better with this mental condition and mental status changes today. She has been concerned as over the last 3 weeks he showed a rapid decline in his day-to-day functioning at home. Patient was able to complete MRI of the brain today. Results are as noted above. There is no evidence of acute stroke or enhancing lesions. There is bilateral white matter ischemic changes noted raising the possibility of vascular dementia. Patient's serum calcium level is continuing to gradually return to her normal levels. There is been some improvement in his mental status with the correction of the hypercalcemia. Further workup for cause of his hypercalcemia is ongoing. His overall prognosis at this time remains guarded.
[2018-02-03] MEDS: B COMPLEX-VIT C-VIT E-ZINC 1 EACH TAB PO SCH (08:38)
[2018-02-03] MEDS: CYANOCOBALAMIN 500 MCG TAB PO SCH (08:38)
[2018-02-03] MEDS: PYRIDOXINE 50 MG TAB PO SCH (08:38)
[2018-02-03] MEDS: MULTIVITAMINS, THERA 1 EACH TAB PO SCH (08:39)
[2018-02-03] MEDS: METOPROLOL TARTRATE 25 MG TAB PO SCH ×2 (08:39→20:47)
[2018-02-03] MEDS: CLOPIDOGREL 75 MG TAB PO SCH (08:39)
[2018-02-03] MEDS: MEGESTROL 400 MG/10 ML CUP PO SCH ×2 (08:39→20:48)
[2018-02-03] MEDS: VIT A,C & E-LUTEIN-MINERALS 1 EACH TAB PO SCH (08:40)
[2018-02-03] MEDS: HEPARIN SODIUM,PORCINE 5,000 UNIT/ML 1 ML VIAL SQ SCH ×2 (08:40→20:48)
[2018-02-03] MEDS: cefTRIAXone IN SWFI 1,000 MG/10 ML SYRINGE IVP SCH (08:42)
[2018-02-03] MEDS: CALCITONIN INJ 200 UNIT/ML (MDV) VIAL SQ SCH (09:20)
[2018-02-03 11:48] LABS: Glucose,Whole Blood 184 mg/dL (75-99)
--- NOTE | 2018-02-03 12:43 | P.PN ---
Subjective 72 yo M presents with generalized weakness with recent hospitalization for acute CHF, has undergone workup of CT of the chest , abd/Pelvis which shows interstitial pulmonary disease/congestion , MRI of brain: cerebral atrophy and no acute infarction, hypercalcemia , ACI level was normal for suspected sarcoidosis, Patient is still limited dyspneic, with mild confusion Objective - Vital Signs Vital signs: Vital Signs Temp 97.6 F 02/03/18 04:00 Pulse 70 02/03/18 04:00 Resp 18 02/03/18 04:00 BP 145/68 02/03/18 04:00 Pulse Ox 97 02/03/18 04:00 Intake & Output 02/02/18 02/03/18 02/03/18 18:59 06:59 18:59 Intake Total 955 235 Output Total 1400 1300 Balance -445 -1300 235 Weight 64.9 kg 67 kg Intake: Oral 955 235 Output: Urine 1400 1300 Other: Voiding Method Indwelling Catheter Indwelling Catheter - Exam -Constitutional: No acute distress, mild confusion Eyes: Anicteric sclerae, moist conjunctiva, no lid-lag PERRLA ENMT: NC/AT Oropharynx clear, no erythema, exudates Neck: Supple, FROM, no masses, or JVD No carotid bruits No thyromegaly Lungs: Clear to auscultation Clear to percussion Normal respiratory effort, no accessory muscle use Cardiovascular: Heart regular in rate and rhythm, No murmurs, gallops, or rubs No peripheral edema Abdominal: Soft Nontender, no guarding, rebound or rigidity Abdomen moving with respiration Normoactive bowel sounds No hepatomegaly, No splenomegaly No palpable mass No abdominal wall hernia noted Skin: Normal temperature, tone, texture, turgor No induration No subcutaneous nodules No rash, lesions No ulcers Extremities: No digital cyanosis No clubbing Pedal pulses intact and symmetrical Radial pulses intact and symmetrical Normal gait and station No calf tenderness , right foot ulcer Psychiatric: Alert and oriented to person, place and time Appropriate affect Intact judgement Neuro: Muscles Strength 5/5 in all 4 extremities Sensation to light touch grossly present throughout Cranial nerves II-XII grossly intact No focal sensory deficits - Labs CBC & Chem 7: 02/03/18 05:56 02/03/18 05:56 Labs: Abnormal Lab Results - Last 24 Hours (Table) 02/02/18 02/02/18 02/03/18 Range/Units 16:26 21:18 05:56 RBC 3.71 L (4.30-5.90) m/uL Hgb 10.7 L (13.0-17.5) gm/dL Hct 33.1 L (39.0-53.0) % RDW 16.8 H (11.5-15.5) % Plt Count 571 H (150-450) k/uL Eosinophils # 0.8 H (0-0.7) k/uL BUN (9-20) mg/dL POC Glucose (mg/dL) 174 H 174 H (75-99) mg/dL 18 18 Range/Units 05:56 11:41 RBC (4.30-5.90) m/uL Hgb (13.0-17.5) gm/dL Hct (39.0-53.0) % RDW (11.5-15.5) % Plt Count (150-450) k/uL Eosinophils # (0-0.7) k/uL BUN 27 H (9-20) mg/dL POC Glucose (mg/dL) 184 H (75-99) mg/dL Assessment and Plan Plan: Mild Acute CHF due to diastolic dysfunction. Elevated BNP and interstitial edema. Altered mental Status. possible encephalopathy. Ruled out acute CVA Hypercalcemia 11.9---10.8 COPD/asthma stable Elevated troponin level. Unlikely ACS. Patient had recent cardiac catheterization in December 2017 History of coronary artery disease status post stent placement previously Generalized weakness and frequent falls Abdominal discomfort due to colonic fecal impaction resolved with bowel movement on admission. Hypothyroidism Diabetes type 2 GERD Hypertension Degenerative joint disease Chronic anemia Right diabetic foot ulcer . diabetic DVT prophylaxis heparin subcu Plan: 72 yo M presents with generalized weakness with recent hospitalization for acute CHF, -generalized weaknesss, and acute CHF , Patient will be continued on aspirin Plavix and add metoprolol.. Continue with IV diuresis with Lasix. Continue the breathing treatments and Advair. CT of the chest , abd/Pelvis which shows interstitial pulmonary disease/congestion, Cardiology and pulmonary is following. PTOT. -Patient was seen by neurology due to altered mental status , MRI of brain: cerebral atrophy and no acute infarction, could be multifactorial from the hypercalcemia, acute chf , deconditioning and/or others , continue with the same treatment and monitoring - hypercalcemia , ACI level was normal for suspected sarcoidosis, etiology is not clear , CT of the chest abdomen and thorax was done, call endocrinology consult -Right diabetic foot ulcer, Continue antibiotics in the form of ceftriaxone and ID is following. Prognosis is guarded with multiple medical problems and comorbid conditions.
--- NOTE | 2018-02-03 13:10 | P.PN ---
Subjective Progress Note Date: 02/02/18 Principal diagnosis: Acute exacerbation of CHF with diastolic dysfunction, acute on chronic, improving On today's evaluation of 02/01/2018, the patient is being seen for a follow-up. He is more oriented and his altered mentation is improved. The patient is still very weak and debilitated. He is currently being treated for congestion heart failure. He had a recent catheterization that showed nonocclusive disease involving the RCA in the circumflex and the patient will not need any further cardiac intervention at this point in time. He has been followed up by Dr. Covarrubias on outpatient basis. He is known to have hypertension for vascular disease. He is still correct in lung bases bilaterally. He is benefiting from diuresis. Weight is down and the patient is function continues to be stable. The patient is on IV Lasix 40 mg every 12 hours. The chest x-ray from today shows interstitial edema and there is no significant pleural effusion and there is some background cardiomegaly. On 02/02/2018 patient seen in follow-up. Sitting up in the chair, denies any acute distress. Reports his breathing is improving, sinus stable, patient's currently on room air, with pulse ox at 95-97%. He is afebrile, hemodynamically stable, lung sounds are positive for a a few bibasilar crackles , no wheezes, no rhonchi. Patient in -2700 mL fluid balance, and his weight is trending down. Bilateral lower extremity edema is improving. No congestion, no significant sputum production, patient continues on empiric antibiotics in the form of Rocephin, will continue with current plan of treatment. Objective - Vital Signs Vital signs: Vital Signs Temp 98.1 F 02/03/18 08:00 Pulse 72 02/03/18 08:00 Resp 18 02/03/18 08:00 BP 111/53 02/03/18 08:00 Pulse Ox 98 02/03/18 08:00 Intake & Output 02/02/18 02/03/18 02/03/18 18:59 06:59 18:59 Intake Total 955 235 Output Total 1400 1300 Balance -445 -1300 235 Weight 64.9 kg 67 kg Intake: Oral 955 235 Output: Urine 1400 1300 Other: Voiding Method Indwelling Catheter Indwelling Catheter - Exam No acute distress, confused, with nasal O2 in place. The patient is calm and comfortable. Alert oriented 3, sitting up in the chair, in no acute distress. HEENT examination is grossly unremarkable. Mucous membranes are moist. No oral lesions. Neck supple. Full range of motion. No adenopathy thyromegaly or neck vein distention. Cardiovascular examination reveals regular rhythm rate. S1-S2 normal. No S3 or S4. No discernible murmur noted. Lungs reveal mild bibasilar crackles. No wheezes. No rhonchi. Breath sounds are equal bilaterally. Abdomen soft bowel sounds are heard. No masses or tenderness. Extremities are intact. Slight edema noted to the right lower extremity.. Skin is without rash or lesion.Examination of the skin revealed no evidence of significant rashes, suspicious appearing nevi or other concerning lesions. Right foot is wrapped with a dressing, Neurologic examination is brief but nonfocal. - Labs CBC & Chem 7: 02/03/18 05:56 02/03/18 05:56 Labs: Abnormal Lab Results - Last 24 Hours (Table) 02/02/18 02/02/18 02/03/18 Range/Units 16:26 21:18 05:56 RBC 3.71 L (4.30-5.90) m/uL Hgb 10.7 L (13.0-17.5) gm/dL Hct 33.1 L (39.0-53.0) % RDW 16.8 H (11.5-15.5) % Plt Count 571 H (150-450) k/uL Eosinophils # 0.8 H (0-0.7) k/uL BUN (9-20) mg/dL POC Glucose (mg/dL) 174 H 174 H (75-99) mg/dL 02/03/18 02/03/18 Range/Units 05:56 11:41 RBC (4.30-5.90) m/uL Hgb (13.0-17.5) gm/dL Hct (39.0-53.0) % RDW (11.5-15.5) % Plt Count (150-450) k/uL Eosinophils # (0-0.7) k/uL BUN 27 H (9-20) mg/dL POC Glucose (mg/dL) 184 H (75-99) mg/dL Assessment and Plan Plan: Assessment: 1 exacerbation of CHF which is essentially of a diastolic dysfunction, acute on chronic, improving 2 History of mild COPD/asthma, not active at this time. 3 CHF with diastolic dysfunction 4 History of hypothyroidism 5 History of diabetes 6 History of gastroesophageal reflux disease 7 Hyperlipidemia by history 8 History of hypertension 9 Previous history of myocardial infarction 10 DJD 11 Macular degeneration 12 History of anemia 13 right foot diabetic ulcer Plan: Continue IV diuresis, patient's dyspnea has improved, vital signs stable, patient is on room air. Patient's COPD is not appear to be active at this time. No wheezing, no chest congestion. His activity as tolerated, monitor fluid balance, daily weights and renal profile. I performed a history & physical examination of the patient and discussed their management with my nurse practitioner, Zainab Valentin. I reviewed the nurse practitioner's note and agree with the documented findings and plan of care. Lung sounds are positive for a few bibasilar crackles. The findings and the impression was discussed with the patient. I attest to the documentation by the nurse practitioner. Time with Patient: Less than 30
--- NOTE | 2018-02-03 13:16 | P.PN ---
Subjective Progress Note Date: 02/03/18 Principal diagnosis: Acute exacerbation of CHF with diastolic dysfunction, acute on chronic, improving On today's evaluation of 02/01/2018, the patient is being seen for a follow-up. He is more oriented and his altered mentation is improved. The patient is still very weak and debilitated. He is currently being treated for congestion heart failure. He had a recent catheterization that showed nonocclusive disease involving the RCA in the circumflex and the patient will not need any further cardiac intervention at this point in time. He has been followed up by Dr. Covarrubias on outpatient basis. He is known to have hypertension for vascular disease. He is still correct in lung bases bilaterally. He is benefiting from diuresis. Weight is down and the patient is function continues to be stable. The patient is on IV Lasix 40 mg every 12 hours. The chest x-ray from today shows interstitial edema and there is no significant pleural effusion and there is some background cardiomegaly. On 02/02/2018 patient seen in follow-up. Sitting up in the chair, denies any acute distress. Reports his breathing is improving, sinus stable, patient's currently on room air, with pulse ox at 95-97%. He is afebrile, hemodynamically stable, lung sounds are positive for a a few bibasilar crackles , no wheezes, no rhonchi. Patient in -2700 mL fluid balance, and his weight is trending down. Bilateral lower extremity edema is improving. No congestion, no significant sputum production, patient continues on empiric antibiotics in the form of Rocephin, will continue with current plan of treatment. On 02/03/2018 patient seen in follow-up. Is in -1745 ML fluid balance over the last 24 hours. Lung sounds are clear to auscultation, patient remains on room air, with a pulse ox around 97%. Denies any dyspnea, denies any chest pain. No peripheral edema appreciated on today's exam. No wheezing, no chest congestion , he remains on Rocephin. Mentation is improving, and patient is awake, alert, and oriented 3. Patient remains on IV diuretics, 40 mg every 12 hours, vitals are stable. Patient is being treated for an elevated calcium, and patient is receiving calcitonin injections, and and serum calcium was 10.2 on 02/02/2018. From pulmonary standpoint patient is stable, continue current treatment. Objective - Vital Signs Vital signs: Vital Signs Temp 98.1 F 02/03/18 08:00 Pulse 72 02/03/18 08:00 Resp 18 02/03/18 08:00 BP 111/53 02/03/18 08:00 Pulse Ox 98 02/03/18 08:00 Intake & Output 02/02/18 02/03/18 02/03/18 18:59 06:59 18:59 Intake Total 955 335 Output Total 1400 1300 Balance -445 -1300 335 Weight 64.9 kg 67 kg Intake: Oral 955 335 Output: Urine 1400 1300 Other: Voiding Method Indwelling Catheter Indwelling Catheter - Exam No acute distress, confused, with nasal O2 in place. The patient is calm and comfortable. Alert oriented 3, sitting up in the chair, in no acute distress. HEENT examination is grossly unremarkable. Mucous membranes are moist. No oral lesions. Neck supple. Full range of motion. No adenopathy thyromegaly or neck vein distention. Cardiovascular examination reveals regular rhythm rate. S1-S2 normal. No S3 or S4. No discernible murmur noted. Lungs reveal clear lung sounds bilaterally, no rhonchi, no wheezes or rales on today's exam, patient is on room air, denies any chest pain, denies any dyspnea, Abdomen soft bowel sounds are heard. No masses or tenderness. Extremities are intact. Slight edema noted to the right lower extremity.. Skin is without rash or lesion.Examination of the skin revealed no evidence of significant rashes, suspicious appearing nevi or other concerning lesions. Right foot is wrapped with a dressing, Neurologic examination is brief but nonfocal. - Labs CBC & Chem 7: 02/03/18 05:56 02/03/18 05:56 Labs: Abnormal Lab Results - Last 24 Hours (Table) 02/02/18 02/02/18 02/03/18 Range/Units 16:26 21:18 05:56 RBC 3.71 L (4.30-5.90) m/uL Hgb 10.7 L (13.0-17.5) gm/dL Hct 33.1 L (39.0-53.0) % RDW 16.8 H (11.5-15.5) % Plt Count 571 H (150-450) k/uL Eosinophils # 0.8 H (0-0.7) k/uL BUN (9-20) mg/dL POC Glucose (mg/dL) 174 H 174 H (75-99) mg/dL 02/03/18 02/03/18 Range/Units 05:56 11:41 RBC (4.30-5.90) m/uL Hgb (13.0-17.5) gm/dL Hct (39.0-53.0) % RDW (11.5-15.5) % Plt Count (150-450) k/uL Eosinophils # (0-0.7) k/uL BUN 27 H (9-20) mg/dL POC Glucose (mg/dL) 184 H (75-99) mg/dL Assessment and Plan Plan: Assessment: 1 exacerbation of CHF which is essentially of a diastolic dysfunction, acute on chronic, improving 2 History of mild COPD/asthma, not active at this time. 3 CHF with diastolic dysfunction 4 History of hypothyroidism 5 History of diabetes 6 History of gastroesophageal reflux disease 7 Hyperlipidemia by history 8 History of hypertension 9 Previous history of myocardial infarction 10 DJD 11 Macular degeneration 12 History of anemia 13 right foot diabetic ulcer Plan: Patient continues to improve, denies any dyspnea, denies any chest pain, denies any wheezing, chest congestion. Continue current plan of care, continue IV diuretics, daily weights, monitor fluid balance. Follow-up chest x-ray has been ordered. Clinically patient is stable, and we will see the patient on as- needed basis. I performed a history & physical examination of the patient and discussed their management with my nurse practitioner, Zainab Valentin. I reviewed the nurse practitioner's note and agree with the documented findings and plan of care. Lung sounds are clear. The findings and the impression was discussed with the patient. I attest to the documentation by the nurse practitioner. Time with Patient: Less than 30
--- NOTE | 2018-02-03 13:49 | XR ---
EXAMINATION TYPE: XR chest 2V DATE OF EXAM: 02/03/2018 COMPARISON: Chest x-ray February 01, 2018. HISTORY: CHF progress study. TECHNIQUE: Frontal and lateral views of the chest are obtained. FINDINGS: Resolving central congestion or interstitial prominence is felt present. There is no new f ocal air space opacity, pleural effusion, or pneumothorax seen. The cardiac silhouette size is withi n normal limits with atherosclerotic change in aortic knob. Old left clavicular fracture is redemonst rated. IMPRESSION: Resolving interstitial edema and/or central vascular congestion.
--- NOTE | 2018-02-03 15:02 | P.PN ---
Subjective Progress Note Date: 02/03/18 This is a 72-year-old male patient presented to the emergency department with chief complaint of weakness. He was recently hospitalized for congestive heart failure and was treated and released. The patient underwent cardiac catheterization in December 2017 that showed intermediate disease of the RCA and left circumflex. He follows with Dr. Covarrubias in the office on a regular basis and does have history of stent placement in the past, hypertension and PVD. It was recommended that he continue with medical management. Patient denies any chest discomfort. Serial troponins are negative. His hemoglobin is 9, his hemoglobin last admission was above 10. He denies any dark or bright red blood per rectum. The patient does have unilateral swelling to the right lower extremity, venous Doppler was negative for DVT. No chest x-ray or BNP level was obtained. He does have mild crackles posteriorly but no JVD. He has been up ambulating and does have shortness of breath but does not describe any worsening. He seen sitting up in bed he's in no acute distress. 02/01/2018 Patient was seen and examined this morning, repeat chest x-ray of today did show residual heart failure although there has been some improvement. Weight is down 4 kg today, creatinine is 1.0. 02/02/2018 Patient seen and examined this morning, feeling much better overall. Was up in the chair earlier today. Sodium 141, potassium 3.7, BUN 24, creatinine 0.8. Magnesium 1.7. Echocardiogram with Doppler study was performed revealed a normal left ventricular systolic function. We will continue current dose of IV Lasix. Repeat chest x-ray tomorrow morning. 02/03/2018 Patient seen and examined this morning, heart rate today in the 1 teens, feeling much better overall. Chest x-ray has been requested for today and is yet pending. White blood cell count 14.9, hemoglobin 12.0. Objective - Vital Signs Vital signs: Vital Signs Temp 98.1 F 02/03/18 12:00 Pulse 83 02/03/18 12:00 Resp 18 02/03/18 12:00 BP 114/65 02/03/18 12:00 Pulse Ox 95 02/03/18 12:00 Intake & Output 02/02/18 02/03/18 02/03/18 18:59 06:59 18:59 Intake Total 955 335 Output Total 1400 1300 1000 Balance -445 -1300 -665 Weight 64.9 kg 67 kg Intake: Oral 955 335 Output: Urine 1400 1300 1000 Other: Voiding Method Indwelling Catheter Indwelling Catheter Indwelling Catheter - Exam PHYSICAL EXAMINATION: HEENT: Head is atraumatic, normocephalic. Pupils equal, round. Neck is supple. There is no elevated jugular venous pressure. HEART EXAMINATION: Heart S1, S2 normal. No murmur or gallop heard. CHEST EXAMINATION: Reveal fine rales to bilateral bases. ABDOMEN: Soft, nontender. Bowel sounds are heard. No organomegaly noted. EXTREMITIES: 2+ peripheral pulses with trace evidence of peripheral edema and no calf tenderness noted. NEUROLOGIC patient is awake, alert and oriented -3. . - Labs CBC & Chem 7: 02/03/18 05:56 02/03/18 05:56 Labs: Abnormal Lab Results - Last 24 Hours (Table) 02/02/18 02/02/18 02/03/18 Range/Units 16:26 21:18 05:56 RBC 3.71 L (4.30-5.90) m/uL Hgb 10.7 L (13.0-17.5) gm/dL Hct 33.1 L (39.0-53.0) % RDW 16.8 H (11.5-15.5) % Plt Count 571 H (150-450) k/uL Eosinophils # 0.8 H (0-0.7) k/uL BUN (9-20) mg/dL POC Glucose (mg/dL) 174 H 174 H (75-99) mg/dL 02/03/18 02/03/18 Range/Units 05:56 11:41 RBC (4.30-5.90) m/uL Hgb (13.0-17.5) gm/dL Hct (39.0-53.0) % RDW (11.5-15.5) % Plt Count (150-450) k/uL Eosinophils # (0-0.7) k/uL BUN 27 H (9-20) mg/dL POC Glucose (mg/dL) 184 H (75-99) mg/dL Assessment and Plan Plan: Assessment and plan #1 diastolic congestive heart failure acute on chronic #2 acute on chronic anemia #3 elevated troponins, not consistent with acute ischemia, patient had a cath In 2018. #4 weakness Number 5 diabetes #6 CAD with prior stent #7 hyperlipidemia #8 hypertension Plan From cardiology's perspective, we'll discontinue the IV Lasix and change patient over to oral diuretics today. Continue to monitor rhythm for the next 24 hours. Review chest x-ray. DNP note has been reviewed, I agree with a documented findings and plan of care. Patient was seen and examined.
[2018-02-03 16:28] LABS: Glucose,Whole Blood 85 mg/dL (75-99)
[2018-02-03] MEDS: FUROSEMIDE 40 MG TAB PO SCH (16:38)
[2018-02-03 20:14] LABS: Glucose,Whole Blood 202 mg/dL (75-99)
[2018-02-03] MEDS: ASPIRIN 81 MG PO SCH (20:47)
[2018-02-03] MEDS: LISINOPRIL 10 MG TAB PO SCH (20:47)
--- NOTE | 2018-02-03 21:35 | P.PN ---
Subjective Progress Note Date: 02/03/18 This patient is a 72-year-old male who is being evaluated for episode of confusion and recent falls. Patient was found on admission to have evidence of hypercalcemia. He has been treated for the elevated calcium levels and today his blood tests reveals total calcium to be 9.7. His levels are dropping slowly. With the lowering of the serum calcium level there has been some improvement in his mental status as well. He seemed to be doing better in terms of his mental status and is more alert and conversant. The patient's was at bedside and she is noted improvement in his mental status today. The patient is being evaluated for further causes of delirium and mental status changes. MRI of the brain was completed and reveals chronic white matter changes. There was no evidence of acute stroke. No evidence of any enhancing lesions. There is diffuse white matter changes in both hemispheres suggesting possibility of vascular dementia. The patient seems to be otherwise very cooperative with the nursing staff. He was less agitated today according to the . The hypercalcemia still a concern for possibility of underlying malignancy and other etiologies are being considered. His serum calcium level is coming into normal range today at 9.7. Patient is being followed by Dr. Dixon was ordered an MIKEY level for this patient to further evaluate for sarcoidosis. The Mikey level did come back within normal limits. He is being treated for diastolic congestive heart failure acute on chronic. He does seem to be making some progress and is being closely followed by cardiology. His overall prognosis at this time remains guarded. Objective - Vital Signs Vital signs: Vital Signs Temp 98.1 F 02/03/18 12:00 Pulse 83 02/03/18 12:00 Resp 18 02/03/18 12:00 BP 114/65 02/03/18 12:00 Pulse Ox 95 02/03/18 12:00 Intake & Output 02/02/18 02/03/18 02/03/18 18:59 06:59 18:59 Intake Total 955 335 Output Total 1400 1300 1000 Balance -896 -6781 -302 Weight 64.9 kg 67 kg Intake: Oral 955 335 Output: Urine 1400 1300 1000 Other: Voiding Method Indwelling Catheter Indwelling Catheter Indwelling Catheter - Exam Physical examination: PHYSICAL EXAMINATION: Patient is resting comfortably in bed. VITAL SIGNS: Blood pressure is [114/65]. Heart rate is [83]. Respiration is [18] . Temperature is [98.1]. HEENT: Head is atraumatic, neck is supple, there were no carotid bruits. CHEST: Lungs are clear to auscultation and percussion. CARDIAC: S1, S2 normal rate and rhythm. There is no murmur. ABDOMEN: Soft and nontender. Bowel sounds are present. EXTREMITIES: There is no pedal edema. Peripheral pulses are present. Neurological examination: Patient is awake and alert oriented 3. His speech is fluent with no evidence of any aphasia or dysarthria. His memory and intellectual functions show improvement as compared to yesterday. He is less agitated today. Cranial nerves II through XII are grossly intact. Motor examination fails to reveal any focal weakness. Deep tendon reflexes are 1+ and symmetric. Plantar responses flexor bilaterally. Coordination and gait could not be assessed at this time. - Labs CBC & Chem 7: 02/03/18 05:56 02/03/18 05:56 Labs: Abnormal Lab Results - Last 24 Hours (Table) 02/02/18 02/03/18 02/03/18 Range/Units 21:18 05:56 05:56 RBC 3.71 L (4.30-5.90) m/uL Hgb 10.7 L (13.0-17.5) gm/dL Hct 33.1 L (39.0-53.0) % RDW 16.8 H (11.5-15.5) % Plt Count 571 H (150-450) k/uL Eosinophils # 0.8 H (0-0.7) k/uL BUN 27 H (9-20) mg/dL POC Glucose (mg/dL) 174 H (75-99) mg/dL 02/03/18 Range/Units 11:41 RBC (4.30-5.90) m/uL Hgb (13.0-17.5) gm/dL Hct (39.0-53.0) % RDW (11.5-15.5) % Plt Count (150-450) k/uL Eosinophils # (0-0.7) k/uL BUN (9-20) mg/dL POC Glucose (mg/dL) 184 H (75-99) mg/dL Assessment and Plan (1) Acute encephalopathy Current Visit: Yes Status: Acute Code(s): G93.40 - ENCEPHALOPATHY, UNSPECIFIED SNOMED Code(s): 01233662 (2) Hypercalcemia Current Visit: Yes Status: Acute Code(s): E83.52 - HYPERCALCEMIA SNOMED Code(s): 10682424 (3) CHF (congestive heart failure) Current Visit: Yes Status: Acute Code(s): I50.9 - HEART FAILURE, UNSPECIFIED SNOMED Code(s): 97788130 (4) Diabetes mellitus Current Visit: No Status: Acute Code(s): E11.9 - TYPE 2 DIABETES MELLITUS WITHOUT COMPLICATIONS SNOMED Code(s): 77533280 (5) Diabetic ulcer of right foot associated with type 2 diabetes mellitus, with fat layer exposed Current Visit: No Status: Acute Code(s): E11.621 - TYPE 2 DIABETES MELLITUS WITH FOOT ULCER; L97.512 - NON-PRS CHRONIC ULCER OTH PRT RIGHT FOOT W FAT LAYER EXPOSED SNOMED Code(s): 8563111106877 (6) Non-ST elevation myocardial infarction (NSTEMI) Current Visit: No Status: Acute Code(s): I21.4 - NON-ST ELEVATION (NSTEMI) MYOCARDIAL INFARCTION SNOMED Code(s): 039329242 (7) Wound, open, foot Current Visit: No Status: Acute Code(s): S91.309A - UNSPECIFIED OPEN WOUND, UNSPECIFIED FOOT, INITIAL ENCOUNTER SNOMED Code(s): 578858180 Plan: This patient is a 72-year-old male being evaluated for episode of confusion and recent fall. He was admitted to hospital and was found to have evidence of hypercalcemia. He has been treated for this condition and his serum calcium level today is come down to 9.7. He is showing improvement in his mental status today. He is to undergo MRI of the brain with and without gadolinium to be done later. We will await the results tomorrow. We will continue close neurological follow-up for the patient. According to his who is at bedside he seems to be doing better with this mental condition and mental status changes today. She has been concerned as over the last 3 weeks he showed a rapid decline in his day-to-day functioning at home. Patient was able to complete MRI of the brain today. Results are as noted above. There is no evidence of acute stroke or enhancing lesions. There is bilateral white matter ischemic changes noted raising the possibility of vascular dementia. Patient's serum calcium level is continuing to gradually return to her normal levels. His serum calcium level today is in the therapeutic range at 9.7. There is been some improvement in his mental status with the correction of the hypercalcemia. Further workup for cause of his hypercalcemia is ongoing. His overall prognosis at this time remains guarded. Continue treatment of underlying congestive heart failure as per cardiology. We will continue to follow his neurological status closely during this admission. As noted MRI of the brain failed to reveal any acute changes. His overall prognosis at this time remains guarded.
--- NOTE | 2018-02-03 21:51 | P.PN ---
Subjective Progress Note Date: 02/03/18 Principal diagnosis: Confusion 72-year-old male recently presented to Hospital status post fall at home. He had apparently had a slip and fall in his bathroom, relates that he was on the tile a great difficulty trying to get up off the floor. Resulting in the injury to the bridge of his nose, his forehead is hands minimally into his bilateral lower extremities especially at the knees. He been recently seen in the office were without evidence of acute worsening of the right foot plantar ulceration. He had had some treatment for the left foot diabetic ulceration occluded antibiotic therapy. And was showing some improvement. However when he presented to the office there was a marked worsening of that ulceration and constantly he was started on antibiotic therapy and local wound care with medical when he was initiated. Patient then presented to hospital with falls, significant weakness dehydration and chest pain. 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 He eventually improved enough to be discharged home. He is followed in the outpatient setting for the right plantar ulceration that was responding quite well to the therahoney dressing. Is related that the patient became very disoriented and very weak. Family was very concerned and he was brought to hospital. With the ulceration the infectious diseases consultation was requested. It is noted at the time of the consult the patient had evidence of significant hypercalcemia. The patient has had a trend for this just very recently. He's also had difficulties with elevated inflammatory parameters and workup for autoimmune disease has been negative. However now with a markedly elevated calcium will also evaluate for sarcoidosis. 01/31/2018 patient remains agitated and requires a sitter 02/01/2018 patient is now less agitated. No longer has a sitter. Family members present and the patient is doing better oriented to all but time, thought it was 1984. With this improving calcium appears to be having some improving mental status. Been followed by cardiology severely dilated left atrium was noted by echocardiogram. 02/02/2018 has further improvement but still with confusion at times. Seems comfortable and is not as worried since there has been progress, but like the team is inquiring as to etiology of the hypercalcemia. 02/03/2018 patient has had some Haldol today and is much more calm. However has ambulated unassisted fortunately without fall. Patient is calm no systemic [place] and has the year 2015. Orientation is somewhat better. And again certain less agitated. Hypercalcemia is improved with the calcium level now 9.7. Objective - Vital Signs Vital signs: Vital Signs Temp 97.3 F L 02/03/18 16:00 Pulse 66 02/03/18 16:00 Resp 18 02/03/18 16:00 BP 135/65 02/03/18 16:00 Pulse Ox 96 02/03/18 16:00 Intake & Output 02/03/18 02/03/18 02/04/18 06:59 18:59 06:59 Intake Total 335 Output Total 1300 1000 Balance -1300 -665 Weight 67 kg Intake: Oral 335 Output: Urine 1300 1000 Other: Voiding Method Indwelling Catheter Indwelling Catheter # Bowel Movements 1 - Exam 72-year-old male who is consuming more week until appearance the last time he was seen in the office, also has some confusion. HEENT: Anicteric conjunctiva are pink and moist nasal mucosa grossly intact without significant lesions, there is no thrush. Patient is evidence of the injury to the bridge of his nose with an eschar in place, and has the abrasion on his forehead also besides appear to have no jenny purulence and no drainage minimal surrounding erythema Neck: The neck is supple without significant lymphadenopathy or thyromegaly. Lungs: Symmetrical air entry is noted few expiratory wheezes are heard few basilar crackles are heard. No dullness or egophony is noted. Heart: Irregular with an audible S1 and S2 soft S4 no distinct murmur click or rub PMI was nondisplaced Abdomen: Positive bowel sounds soft and nontender without palpable masses or organomegaly. There was no guarding or rebound. Extremities: Patient is evidence of the recent fall he has evidence of some irritation to his hands but no jenny open ulcerations in the IV site appears to be intact. The bilateral reduction ratio evidence of the abrasions of bilateral knees, has evidence of abrasion to his toes. And then on the right foot plantar has evidence of the diabetic foot ulceration that appears to have penetration through the fat layer, there is some minimal erythema but no purulent drainage at the site. Please refer to the nursing documentation for the photography of these ulcerations and injuries Neuro: The patient is awake and alert Without focal deficits awake alert oriented to person and place time is 2015, with Haldol is calm - Labs CBC & Chem 7: 02/03/18 05:56 02/03/18 05:56 Labs: Abnormal Lab Results - Last 24 Hours (Table) 02/02/18 02/03/18 02/03/18 Range/Units 21:18 05:56 05:56 RBC 3.71 L (4.30-5.90) m/uL Hgb 10.7 L (13.0-17.5) gm/dL Hct 33.1 L (39.0-53.0) % RDW 16.8 H (11.5-15.5) % Plt Count 571 H (150-450) k/uL Eosinophils # 0.8 H (0-0.7) k/uL BUN 27 H (9-20) mg/dL POC Glucose (mg/dL) 174 H (75-99) mg/dL 02/03/18 02/03/18 Range/Units 11:41 20:13 RBC (4.30-5.90) m/uL Hgb (13.0-17.5) gm/dL Hct (39.0-53.0) % RDW (11.5-15.5) % Plt Count (150-450) k/uL Eosinophils # (0-0.7) k/uL BUN (9-20) mg/dL POC Glucose (mg/dL) 184 H 202 H (75-99) mg/dL Laboratory Results WBC 9.7 k/uL (3.8-10.6) 02/03/18 05:56 RBC 3.71 m/uL (4.30-5.90) L 02/03/18 05:56 Hgb 10.7 gm/dL (13.0-17.5) L 02/03/18 05:56 Hct 33.1 % (39.0-53.0) L 02/03/18 05:56 MCV 89.3 fL (80.0-100.0) 02/03/18 05:56 MCH 28.7 pg (25.0-35.0) 02/03/18 05:56 MCHC 32.1 g/dL (31.0-37.0) 02/03/18 05:56 RDW 16.8 % (11.5-15.5) H 02/03/18 05:56 Plt Count 571 k/uL (150-450) H 02/03/18 05:56 Neutrophils % 69 % 02/03/18 05:56 Lymphocytes % 17 % 02/03/18 05:56 Monocytes % 4 % 02/03/18 05:56 Eosinophils % 8 % 02/03/18 05:56 Basophils % 0 % 02/03/18 05:56 Neutrophils # 6.7 k/uL (1.3-7.7) 02/03/18 05:56 Lymphocytes # 1.7 k/uL (1.0-4.8) 02/03/18 05:56 Monocytes # 0.4 k/uL (0-1.0) 02/03/18 05:56 Eosinophils # 0.8 k/uL (0-0.7) H 02/03/18 05:56 Basophils # 0.0 k/uL (0-0.2) 02/03/18 05:56 Anisocytosis Slight 02/03/18 05:56 PT 10.9 sec (9.0-12.0) 01/29/18 16:45 INR 1.1 (<1.2) 01/29/18 16:45 APTT 22.9 sec (22.0-30.0) 01/29/18 16:45 Sodium 142 mmol/L (137-145) 02/03/18 05:56 Potassium 3.9 mmol/L (3.5-5.1) 02/03/18 05:56 Chloride 101 mmol/L (98-107) 02/03/18 05:56 Carbon Dioxide 29 mmol/L (22-30) 02/03/18 05:56 Anion Gap 12 mmol/L 02/03/18 05:56 BUN 27 mg/dL (9-20) H 02/03/18 05:56 Creatinine 0.78 mg/dL (0.66-1.25) 02/03/18 05:56 Est GFR (CKD-EPI)AfAm >90 (>60 ml/min/1.73 sqM) 02/03/18 05:56 Est GFR (CKD-EPI)NonAf 90 (>60 ml/min/1.73 sqM) 02/03/18 05:56 Glucose 95 mg/dL (74-99) 02/03/18 05:56 POC Glucose (mg/dL) 202 mg/dL (75-99) H 02/03/18 20:13 POC Glu Second Worker ID Nicolle Ledbetter 02/03/18 20:[address] Glu mg/dL 114 01/30/18 05:19 Hemoglobin A1c 5.6 % (4.0-6.0) 01/30/18 05:19 Calcium 9.7 mg/dL (8.4-10.2) 02/03/18 05:56 Ionized Calcium Heidi 6.9 mg/dL (4.5-5.3) H* 01/30/18 05:19 Phosphorus 4.1 mg/dL (2.5-4.5) 01/29/18 16:45 Magnesium 1.7 mg/dL (1.6-2.3) 02/02/18 06:31 Total Bilirubin 0.3 mg/dL (0.2-1.3) 01/29/18 16:45 AST 24 U/L (17-59) 01/29/18 16:45 ALT 22 U/L (21-72) 01/29/18 16:45 Alkaline Phosphatase 54 U/L (38-126) 01/29/18 16:45 Total Creatine Kinase 29 U/L (55-170) L 01/29/18 16:45 CK-MB (CK-2) 1.9 ng/mL (0.0-2.4) 01/29/18 16:45 CK-MB (CK-2) Rel Index 6.6 01/29/18 16:45 Troponin I 0.045 ng/mL (0.000-0.034) H* 01/30/18 05:19 NT-Pro-B Natriuret Pep 81955 pg/mL 01/30/18 05:19 Total Protein 5.8 g/dL (6.3-8.2) L 01/29/18 16:45 Albumin 2.8 g/dL (3.5-5.0) L 01/29/18 16:45 Angiotensin Convert Enz 7 U/L (8-52) L 01/30/18 05:19 Urine Color Light Yellow 01/29/18 17:00 Urine Appearance Cloudy (Clear) 01/29/18 17:00 Urine pH 6.5 (5.0-8.0) 01/29/18 17:00 Ur Specific [place] 1.010 (1.001-1.035) 01/29/18 17:00 Urine Protein Trace (Negative) H 01/29/18 17:00 Urine Glucose (UA) Negative (Negative) 01/29/18 17:00 Urine Ketones Negative (Negative) 01/29/18 17:00 Urine Blood Negative (Negative) 01/29/18 17:00 Urine Nitrite Negative (Negative) 01/29/18 17:00 Urine Bilirubin Negative (Negative) 01/29/18 17:00 Urine Urobilinogen <2.0 mg/dL (<2.0) 01/29/18 17:00 Ur Leukocyte Esterase Negative (Negative) 01/29/18 17:00 Urine RBC 4 /hpf (0-5) 01/29/18 17:00 Urine WBC 6 /hpf (0-5) H 01/29/18 17:00 Urine Bacteria Rare /hpf (None) H 01/29/18 17:00 Urine Mucus Rare /hpf (None) H 01/29/18 17:00 Urine Yeast (Budding) Moderate /hpf (None) H 01/29/18 17:00 Stool Occult Blood Negative (Negative) 01/31/18 17:14 Microbiology 01/29/18 17:00 Urine,Clean Catch Urine Culture - Final Assessment and Plan (1) Altered mental status Narrative/Plan: 72-year-old male has had recent hospitalizations with increasing weakness and falls. He has some known underlying pulmonary disease. However now comes in with worsening confusion and some shortness of breath. His chest x -ray shows evidence of some interstitial changes potentially worsen the last check. It appears since his admission his confusion is improved. However he has had several recent hospitalizations with concerns to underlying disease process given the elevated inflammatory parameters, his significant weight loss and declining status. He's had multiple evaluations have included CT scans of the chest abdomen and pelvis and no brain without significant abnormalities except the interstitial disease within his lungs. The patient now has evidence of the markedly elevated calcium and ionized calcium. He has heart failure and there are some limits time which hydration can be given. In with this calcitonin will be given in attempts to reduce his calcium and improve his status. With the pulmonary disease and elevated calcium further evaluation for sarcoidosis is being done requesting an Mikey level, this could potentially tie together the sitting and inflammation and his pulmonary status and elevated calcium. Still remain concerned about an underlying malignancy. 01/31/2018 patient is slightly improved. Still agitated. Calcium is down to 11.9 with a calcitonin that was started. No positive cultures at this time. Hemoglobin is 9.8. Temperature is afebrile. Positive cultures. Remain concerned that the elevated calcium is impacting his mental status and hopefully assist number normalizes he will feel better. Etiology of the elevated calcium remains of concern, Mikey level is pending for further potential evaluation of sarcoidosis. 02/01/2018 the patient has further improvement. Agitation is improved. Calcium is further improved. No positive cultures. Being followed by multiple specialists including neurology. MRI of the brain is pending. Mikey level was normal. Etiology of the elevated calcium remains of great concern and without evidence of sarcoidosis but again be concerned to underlying malignancy. 02/02/2018 some improvement is noted, MRI without new lesions but reveals the ongoing atrophy of white matter with age. Patient still not at baseline but calcium is slowly improving. Etiology of the elevated calcium remains of concern , with the lung abnormalities difficult to exclude underlaying pathology. The foot ulcer is stable and continue the wound care and antibiotic therapy. 02/03/2018 with Haldol patient is much more calm. Working for halfway placement. PTH level has been requested an outpatient endocrinology consult requested. Will complete his course of antibiotics for the infection to the foot. Culture reviewed shows evidence of Pseudomonas and ceftazidime will be utilized at this time. Creatinine is normal dose of 2 g every 8. Endocrinology workup being requested, calcitonin likely discontinued soon Current Visit: Yes Status: Acute Code(s): R41.82 - ALTERED MENTAL STATUS, UNSPECIFIED SNOMED Code(s): 040205496 (2) Diabetic ulcer of right foot associated with type 2 diabetes mellitus, with fat layer exposed Current Visit: No Status: Acute Code(s): E11.621 - TYPE 2 DIABETES MELLITUS WITH FOOT ULCER; L97.512 - NON-PRS CHRONIC ULCER OTH PRT RIGHT FOOT W FAT LAYER EXPOSED SNOMED Code(s): 4115525582899 (3) Serum calcium elevated Current Visit: Yes Status: Acute Code(s): E83.52 - HYPERCALCEMIA SNOMED Code(s): 58020621
[2018-02-04] MEDS: LEVOTHYROXINE 25 MCG TAB PO SCH (06:08)
[2018-02-04 07:46] LABS: Anisocytosis Slight; Basophils % (A) 0 %; Eosinophils # (A) 0.8 k/uL (0-0.7); Eosinophils % (A) 7 %; HCT 31.8 % (39.0-53.0); HGB 10.5 gm/dL (13.0-17.5); Lymphocytes # (A) 1.8 k/uL (1.0-4.8); Lymphocytes % (A) 15 %; MCH 29.2 pg (25.0-35.0); MCHC 33.2 g/dL (31.0-37.0); MCV 88.1 fL (80.0-100.0); Monocytes # (A) 0.4 k/uL (0-1.0); Monocytes % (A) 3 %; Neutrophils # (A) 8.8 k/uL (1.3-7.7); Neutrophils % (A) 73 %; Platelet Count 568 k/uL (150-450); RDW 16.9 % (11.5-15.5); WBC 11.9 k/uL (3.8-10.6)
[2018-02-04 07:51] LABS: Anion Gap 13 mmol/L; Blood Urea Nitrogen 25 mg/dL (9-20); Calcium 9.7 mg/dL (8.4-10.2); Carbon Dioxide 28 mmol/L (22-30); Chloride 100 mmol/L (98-107); Glucose 92 mg/dL (74-99); Potassium 3.6 mmol/L (3.5-5.1); Sodium 141 mmol/L (137-145)
[2018-02-04] MEDS: INSULIN ASPART 100 UNIT/ML 1 ML 10 ML VIAL SQ SCH ×4 (08:34→20:40)
[2018-02-04] MEDS: PANTOPRAZOLE 40 MG TABLET PO SCH (08:35)
[2018-02-04] MEDS: CALCITONIN INJ 200 UNIT/ML (MDV) VIAL SQ SCH (08:36)
[2018-02-04] MEDS: CLOPIDOGREL 75 MG TAB PO SCH (08:36)
[2018-02-04] MEDS: B COMPLEX-VIT C-VIT E-ZINC 1 EACH TAB PO SCH (08:36)
[2018-02-04] MEDS: FUROSEMIDE 40 MG TAB PO SCH ×2 (08:36→17:13)
[2018-02-04] MEDS: CYANOCOBALAMIN 500 MCG TAB PO SCH (08:36)
[2018-02-04] MEDS: VIT A,C & E-LUTEIN-MINERALS 1 EACH TAB PO SCH (08:37)
[2018-02-04] MEDS: MEGESTROL 400 MG/10 ML CUP PO SCH ×2 (08:37→20:40)
[2018-02-04] MEDS: HEPARIN SODIUM,PORCINE 5,000 UNIT/ML 1 ML VIAL SQ SCH ×2 (08:37→20:40)
[2018-02-04] MEDS: METOPROLOL TARTRATE 25 MG TAB PO SCH ×2 (08:37→20:41)
[2018-02-04] MEDS: PYRIDOXINE 50 MG TAB PO SCH (08:38)
--- NOTE | 2018-02-04 10:20 | DS ---
DISCHARGE SUMMARY FINAL DIAGNOSES: 1. Congestive heart failure acute exacerbation with acute on chronic diastolic dysfunction. 2. Change in mental status, metabolic encephalopathy. 3. Hypercalcemia. 4. Chronic obstructive pulmonary disease. 5. Elevated troponin indeterminate. 6. History of coronary artery disease, stent. 7. Generalized weakness and gait dysfunction. 8. Hypothyroidism. 9. Diabetes mellitus type 2. 10.Gastroesophageal reflux disease. 11.Hypertension. 12.Degenerative joint disease. DISCHARGE DISPOSITION: The patient will be discharged in stable condition with guarded prognosis. The patient will be transferred to [facility] for continued rehab. Total time taken 35 minutes. HISTORY OF PRESENT ILLNESS: This 72-year-old gentleman with a past medical history of multiple medical problems admitted with CHF acute exacerbation, hypercalcemia, COPD, multiple other medical issues. Patient treated symptomatically. Seen by multiple consultants including Cardiology. Patient improved significantly. The patient will be transferred to [facility] for further evaluation and treatment. At this time the discharge advice and medications include: 1. Diet is cardiac. 2. Activity limited until followup. 3. Follow up with Dr. Fuentes after discharge from [facility]. 4. Follow up with Dr. Ramirez and Dr. Mendes in the [facility]. Medications are: 1. Ecotrin 81 mg at bedtime. 2. Plavix 75 mg p.o. daily. 3. Cod liver oil 1 p.o. daily. 4. Cognium 1 tab p.o. daily. 5. Vitamin B12, 1000 mcg p.o. daily. 6. Advair 1 puff b.i.d. 7. Monopril 10 mg at bedtime. 8. Lasix 40 mg p.o. b.i.d. 9. Follow up with java web engineer as recommended. 10.Iron one tablet p.o. daily. 11.Levothyroxine 25 mcg p.o. daily. 12.Megace 400 mg p.o. b.i.d. 13.Metformin 1000 mg p.o. b.i.d. 14.Lopressor 25 mg p.o. b.i.d. 15.Multivitamin. 16.Prilosec 20 mg a.c. b.i.d. 17.Vitamin B6, 100 mg p.o. daily. 18.Vitamin B complex 1 p.o. daily. 19.Vitamin E 100 mg p.o. daily. 20.Vitamins A, C, lutein 1 tablet p.o. daily. CBC, BMP in 2 to 3 days. Follow up with Cardiology as advised. Ativan 0.5 mg q.6 p.r.n. for anxiety, agitation. MMODL / ARLYNN: [id number] /
--- NOTE | 2018-02-04 10:31 | P.PN ---
Subjective Progress Note Date: 02/04/18 Mr. Garay is a pleasant 72-year-old male past medical history significant for hypertension, dyslipidemia, COPD, diabetes mellitus, asthma, gastroesophageal reflux disease, peripheral vascular disease and carotid stenosis. He follows with Dr. Lott in the office. We are following with him for an acute exacerbation of diastolic heart failure. He is seen on the medical floor. Diuretics were transitioned to oral yesterday. Telemetry tracings have been unremarkable. Chest xray obtained yesterday reveal resolving interstitial edema and/or central venous congestion. Blood pressure 121/58 heart rate 93 afebrile maintaining oxygen saturation on room air. His weight this morning is 63.5 kg down from 74.8 on admission. Intake and output reveals a negative fluid balance. Objective - Vital Signs Vital signs: Vital Signs Temp 98 F 02/04/18 06:50 Pulse 93 02/04/18 06:50 Resp 18 02/04/18 06:50 BP 121/58 02/04/18 06:50 Pulse Ox 100 02/04/18 06:50 Intake & Output 02/03/18 02/04/18 02/04/18 18:59 06:59 18:59 Intake Total 335 100 Output Total 1000 1100 Balance -665 -1000 Weight 63.5 kg Intake: Intake, IV Titration 100 Amount cefTAZidime 2 gm In 100 Sodium Chloride 0.9% 100 ml @ 100 mls/hr IVPB Q8HR [facility] Rx#:[id number] Oral 335 Output: Urine 1000 1100 Uretheral ([place]) 1100 Other: Voiding Method Indwelling Catheter Indwelling Catheter Indwelling Catheter # Bowel Movements 1 - Exam GENERAL: Well-appearing, well-nourished and in no acute distress. NECK: Supple without JVD or thyromegaly. LUNGS: Breath sounds clear to auscultation bilaterally. Respiration equal and unlabored. No wheezes, rales or rhonchi. Diminished. HEART: Regular rate and rhythm with murmur at the base, no rubs or gallops. S1 and S2 heard. EXTREMITIES: Normal range of motion, no edema. No clubbing or cyanosis. Peripheral pulses intact and strong. - Labs CBC & Chem 7: 02/04/18 07:13 02/04/18 07:13 Labs: Abnormal Lab Results - Last 24 Hours (Table) 02/03/18 02/03/1818 Range/Units 11:41 20:13 07:13 WBC 11.9 H (3.8-10.6) k/uL RBC 3.60 L (4.30-5.90) m/uL Hgb 10.5 L (13.0-17.5) gm/dL Hct 31.8 L (39.0-53.0) % RDW 16.9 H (11.5-15.5) % Plt Count 568 H (150-450) k/uL Neutrophils # 8.8 H (1.3-7.7) k/uL Eosinophils # 0.8 H (0-0.7) k/uL BUN (9-20) mg/dL POC Glucose (mg/dL) 184 H 202 H (75-99) mg/dL 02/04/18 Range/Units 07:13 WBC (3.8-10.6) k/uL RBC (4.30-5.90) m/uL Hgb (13.0-17.5) gm/dL Hct (39.0-53.0) % RDW (11.5-15.5) % Plt Count (150-450) k/uL Neutrophils # (1.3-7.7) k/uL Eosinophils # (0-0.7) k/uL BUN 25 H (9-20) mg/dL POC Glucose (mg/dL) (75-99) mg/dL Assessment and Plan Assessment: ASSESSMENT 1. Acute on chronic diastolic heart failure, resolving 2. Acute on chronic anemia 3. Elevated troponins, not consistent with acute ischemia. Patient had cardiac catheterization December 2017 4. Increased weakness 5. Diabetes mellitus 6. Dyslipidemia 7. Hypertension 8. History of coronary artery disease with recent stenting PLAN Stable from a cardiac perspective. Continue current medical therapy. Lasix 40 mg BID, aspirin 81 mg daily, lisinopril 10 mg daily and lopressor 25 mg BID. Follow up with Dr. Lott in 2-3 weeks. Nurse Practitioner note has been reviewed, I agree with a documented findings and plan of care. Patient was seen and examined.
[2018-02-04 10:35] VITALS: BMI 22.6
[2018-02-04 11:06] LABS: Glucose,Whole Blood 211 mg/dL (75-99)
[2018-02-04] MEDS: MULTIVITAMINS, THERA 1 EACH TAB PO SCH (12:25)
[2018-02-04 17:04] LABS: Glucose,Whole Blood 122 mg/dL (75-99)
[2018-02-04 20:13] LABS: Glucose,Whole Blood 163 mg/dL (75-99)
[2018-02-04] MEDS: LISINOPRIL 10 MG TAB PO SCH (20:40)
[2018-02-04] MEDS: ASPIRIN 81 MG PO SCH (20:41)
--- NOTE | 2018-02-04 22:14 | PN ---
PROGRESS NOTE DATE OF SERVICE: 02/04/2018. INTERVAL HISTORY: This 72-year-old gentleman admitted with CHF acute exacerbation also had peripheral vascular disease evaluated by Dr. Lott in the outpatient setting. No chest pain. No palpitations. No fever. EXAM: Alert and oriented times three. Pulse 96, blood pressure 129/60, respiration 18, temperature 97.9, pulse ox 100% on room air. HEENT: Conjunctivae normal. Neck: No jugular venous distention. Cardiovascular: S1, S2 muffled. Respiratory: Breath sounds diminished in the bases. A few scattered rhonchi and crackles. Abdomen is soft, nontender. No mass palpable. Legs are no edema. No swelling. Central nervous system: No focal deficits. LABS: WBC 11.2, hemoglobin 10.5. ASSESSMENT: 1. Congestive heart failure acute exacerbation with acute on chronic diastolic dysfunction. 2. Change in mental status, acute metabolic encephalopathy. 3. Hypercalcemia. 4. Chronic obstructive pulmonary disease. 5. Elevated troponin, indeterminate. 6. History of coronary artery disease, stent. 7. Generalized weakness and gait dysfunction. 8. Hypothyroid. 9. Diabetes type 2. 10.Gastroesophageal reflux disease. 11.Hypertension. 12.History of degenerative joint disease. RECOMMENDATIONS AND DISCUSSION: Recommend to continue current medications, management and symptomatic treatment. Otherwise, at this time, we will monitor the patient closely. Otherwise I would recommend evaluation by Dr. Lott and possible angio. Guarded prognosis because of multiple complex medical issues. Further recommendations to follow. MMODL / IJN: [id number] /
[2018-02-05] MEDS: CALCITONIN INJ 200 UNIT/ML (MDV) VIAL SUBDERMAL SCH (06:43)
[2018-02-05 07:02] LABS: Glucose,Whole Blood 170 mg/dL (75-99)
[2018-02-05] MEDS: INSULIN ASPART 100 UNIT/ML 1 ML 10 ML VIAL SQ SCH ×3 (07:29→16:46)
[2018-02-05] MEDS: LEVOTHYROXINE 25 MCG TAB PO SCH (07:33)
[2018-02-05] MEDS: PANTOPRAZOLE 40 MG TABLET PO SCH (07:34)
[2018-02-05] MEDS: CLOPIDOGREL 75 MG TAB PO SCH ×2 (07:47→08:34)
[2018-02-05] MEDS: B COMPLEX-VIT C-VIT E-ZINC 1 EACH TAB PO SCH (07:47)
[2018-02-05] MEDS: CALCITONIN INJ 200 UNIT/ML (MDV) VIAL SQ SCH (07:47)
[2018-02-05] MEDS: CYANOCOBALAMIN 500 MCG TAB PO SCH (07:48)
[2018-02-05] MEDS: MEGESTROL 400 MG/10 ML CUP PO SCH (07:48)
[2018-02-05] MEDS: HEPARIN SODIUM,PORCINE 5,000 UNIT/ML 1 ML VIAL SQ SCH (07:48)
[2018-02-05] MEDS: PYRIDOXINE 50 MG TAB PO SCH (07:48)
[2018-02-05] MEDS: VIT A,C & E-LUTEIN-MINERALS 1 EACH TAB PO SCH (07:49)
[2018-02-05] MEDS: METOPROLOL TARTRATE 25 MG TAB PO SCH (07:57)
[2018-02-05] MEDS: FUROSEMIDE 40 MG TAB PO SCH (08:04)
[2018-02-05 08:31] VITALS: TEMP 97.3
[2018-02-05] MEDS ORDERED: SODIUM CHLORIDE 0.9% 500 ML IV ONE (10:40)
[2018-02-05] MEDS ORDERED: MIDAZOLAM 2 MG/2 ML VIAL IV ONE (10:50)
[2018-02-05] MEDS ORDERED: LIDOCAINE 2% INJ 20 MG/ML SQ ONE (10:51)
[2018-02-05] MEDS ORDERED: IOPAMIDOL-250 100ML BTL INTRAARTER ONE (11:04)
[2018-02-05] MEDS ORDERED: SODIUM CHLORIDE 0.9% 1,000 ML IV SCH (11:15)
[2018-02-05 11:24] VITALS: RESP 16
[2018-02-05 11:53] LABS: Glucose,Whole Blood 90 mg/dL (75-99)
--- NOTE | 2018-02-05 13:27 | AN ---
ANGIOGRAPHY REPORT DATE OF SERVICE: February 05, 2018 PERFORMING PHYSICIAN: Ibrahima Lott MD, machine stacker. PROCEDURE PERFORMED: 1. An abdominal aortogram. 2. Bilateral lower extremities runoff. INDICATION: This is a pleasant 72-year-old gentleman who is known to have peripheral arterial disease and prior iliac stenting, who was struggling with critical limb ischemia of the right foot. He was brought today to undergo an abdominal aortogram and bilateral lower extremities runoff. APPROACH: Right common femoral artery. COMPLICATION: None. LEVEL OF SEDATION: Moderate with sedation length of 10 minutes. PROCEDURE DESCRIPTION: After obtaining an informed consent, the patient was brought to the cardiac rags laborer. The right common femoral artery was cannulated using micropuncture technique, the micropuncture wire passed easily, then I placed a 5-Kiswahili sheath in the right common femoral artery. After that, I did an abdominal aortogram and bilateral lower extremities runoff using 5-Kiswahili pigtail catheter which was initially placed at the level of the renal arteries and then it was pulled into above the bifurcation of the aorta into right and left common iliac arteries. The procedure was completed without any complication. SELECTIVE PERIPHERAL ANGIOGRAM: 1. The aorta appeared to have mild disease only. 2. Common iliac arteries: The right and left common iliac arteries appear to have mild disease only. 3. Internal iliac arteries: The right internal iliac artery appeared to be small and the left internal iliac artery is occluded. 4. External iliac arteries: The right external iliac artery appeared to be patent and the left external iliac artery appeared to be stented with moderate to severe in- stent restenosis. 5. Common femoral artery: Right and left common femoral arteries are angiographically normal. 6. Profunda: The right and left profunda are patent. 7. SFA: The right and left SFA appeared to have mild disease only. The right SFA is stented and the stent is patent. 8. Popliteal: The right and left popliteal are patent. 9. Below the knee: There are 3 vessels runoff below the knee bilaterally. CONCLUSION: 1. Moderate to severe in-stent restenosis of the left external iliac artery stent. 2. Patent stent in the right SFA. 3. Three vessels below the knee bilaterally. POSTPROCEDURE MANAGEMENT: Medical treatment. MMODL / IJN: [id number] /
--- NOTE | 2018-02-05 15:09 | P.PN ---
Subjective Progress Note Date: 02/05/18 Principal diagnosis: Confusion 72-year-old male recently presented to Hospital status post fall at home. He had apparently had a slip and fall in his bathroom, relates that he was on the tile a great difficulty trying to get up off the floor. Resulting in the injury to the bridge of his nose, his forehead is hands minimally into his bilateral lower extremities especially at the knees. He been recently seen in the office were without evidence of acute worsening of the right foot plantar ulceration. He had had some treatment for the left foot diabetic ulceration occluded antibiotic therapy. And was showing some improvement. However when he presented to the office there was a marked worsening of that ulceration and constantly he was started on antibiotic therapy and local wound care with medical when he was initiated. Patient then presented to hospital with falls, significant weakness dehydration and chest pain. 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 He eventually improved enough to be discharged home. He is followed in the outpatient setting for the right plantar ulceration that was responding quite well to the therahoney dressing. Is related that the patient became very disoriented and very weak. Family was very concerned and he was brought to hospital. With the ulceration the infectious diseases consultation was requested. It is noted at the time of the consult the patient had evidence of significant hypercalcemia. The patient has had a trend for this just very recently. He's also had difficulties with elevated inflammatory parameters and workup for autoimmune disease has been negative. However now with a markedly elevated calcium will also evaluate for sarcoidosis. 01/31/2018 patient remains agitated and requires a sitter 02/01/2018 patient is now less agitated. No longer has a sitter. Family members present and the patient is doing better oriented to all but time, thought it was 1984. With this improving calcium appears to be having some improving mental status. Been followed by cardiology severely dilated left atrium was noted by echocardiogram. 02/02/2018 has further improvement but still with confusion at times. Seems comfortable and is not as worried since there has been progress, but like the team is inquiring as to etiology of the hypercalcemia. 02/03/2018 patient has had some Haldol today and is much more calm. However has ambulated unassisted fortunately without fall. Patient is calm no systemic [place] and has the year 2015. Orientation is somewhat better. And again certain less agitated. Hypercalcemia is improved with the calcium level now 9.7. 02/05/2018 the patient is certainly much more calm now that he has had his angiography. Is related there was in-stent restenosis and there has been repair of this now. The patient is having difficulty with ongoing ischemic change in nonhealing ulceration to his foot. He is comfortable. His significant hypercalcemia is improved. Objective - Vital Signs Vital signs: Vital Signs Temp 97.3 F L 02/05/18 07:45 Pulse 64 02/05/18 14:49 Resp 16 02/05/18 13:11 BP 129/61 02/05/18 14:49 Pulse Ox 96 02/05/18 14:49 Intake & Output 02/04/18 02/05/18 02/05/18 18:59 06:59 18:59 Intake Total 1180 795 Output Total 6900 597 9893 Balance -320 -600 -1505 Weight 63.5 kg 64 kg Intake: IV 275 Sodium Chloride 0.9% 1, 225 000 ml @ 75 mls/hr IV . [id number] Rx#:[id number] Intake, IV Titration 100 Amount cefTAZidime 2 gm In 100 Sodium Chloride 0.9% 100 ml @ 100 mls/hr IVPB Q8HR [facility] Rx#:[id number] Oral 1080 520 Output: Urine 1750 146 6956 Uretheral ([place]) 600 600 Other: Voiding Method Indwelling Catheter Indwelling Catheter Indwelling Catheter # Voids 2 2 # Bowel Movements 2 2 1 - Exam 72-year-old male who is consuming more week until appearance the last time he was seen in the office, also has some confusion. HEENT: Anicteric conjunctiva are pink and moist nasal mucosa grossly intact without significant lesions, there is no thrush. Patient is evidence of the injury to the bridge of his nose with an eschar in place, and has the abrasion on his forehead also besides appear to have no jenny purulence and no drainage minimal surrounding erythema Neck: The neck is supple without significant lymphadenopathy or thyromegaly. Lungs: Symmetrical air entry is noted few expiratory wheezes are heard few basilar crackles are heard. No dullness or egophony is noted. Heart: Irregular with an audible S1 and S2 soft S4 no distinct murmur click or rub PMI was nondisplaced Abdomen: Positive bowel sounds soft and nontender without palpable masses or organomegaly. There was no guarding or rebound. Extremities: Patient is evidence of the recent fall he has evidence of some irritation to his hands but no jenny open ulcerations in the IV site appears to be intact. The bilateral lower extremities evidence of the abrasions of bilateral knees, has evidence of abrasion to his toes. And then on the right foot plantar has evidence of the diabetic foot ulceration that appears to have penetration through the fat layer, there is some minimal erythema but no purulent drainage at the site. Please refer to the nursing documentation for the photography of these ulcerations and injuries Neuro: The patient is awake and alert Without focal deficits awake alert oriented to person and place time is 2015, with Haldol is calm - Labs CBC & Chem 7: 02/04/18 07:13 02/04/18 07:13 Labs: Abnormal Lab Results - Last 24 Hours (Table) 02/04/18 02/04/18 02/05/18 Range/Units 17:03 20:12 07:00 POC Glucose (mg/dL) 122 H 163 H 170 H (75-99) mg/dL Laboratory Results WBC 11.9 k/uL (3.8-10.6) H 02/04/18 07:13 RBC 3.60 m/uL (4.30-5.90) L 02/04/18 07:13 Hgb 10.5 gm/dL (13.0-17.5) L 02/04/18 07:13 Hct 31.8 % (39.0-53.0) L 02/04/18 07:13 MCV 88.1 fL (80.0-100.0) 02/04/18 07:13 MCH 29.2 pg (25.0-35.0) 02/04/18 07:13 MCHC 33.2 g/dL (31.0-37.0) 02/04/18 07:13 RDW 16.9 % (11.5-15.5) H 02/04/18 07:13 Plt Count 568 k/uL (150-450) H 02/04/18 07:13 Neutrophils % 73 % 02/04/18 07:13 Lymphocytes % 15 % 02/04/18 07:13 Monocytes % 3 % 02/04/18 07:13 Eosinophils % 7 % 02/04/18 07:13 Basophils % 0 % 02/04/18 07:13 Neutrophils # 8.8 k/uL (1.3-7.7) H 02/04/18 07:13 Lymphocytes # 1.8 k/uL (1.0-4.8) 02/04/18 07:13 Monocytes # 0.4 k/uL (0-1.0) 02/04/18 07:13 Eosinophils # 0.8 k/uL (0-0.7) H 02/04/18 07:13 Basophils # 0.0 k/uL (0-0.2) 02/04/18 07:13 Anisocytosis Slight 02/04/18 07:13 PT 10.9 sec (9.0-12.0) 01/29/18 16:45 INR 1.1 (<1.2) 01/29/18 16:45 APTT 22.9 sec (22.0-30.0) 01/29/18 16:45 Sodium 141 mmol/L (137-145) 02/04/18 07:13 Potassium 3.6 mmol/L (3.5-5.1) 02/04/18 07:13 Chloride 100 mmol/L (98-107) 02/04/18 07:13 Carbon Dioxide 28 mmol/L (22-30) 02/04/18 07:13 Anion Gap 13 mmol/L 02/04/18 07:13 BUN 25 mg/dL (9-20) H 02/04/18 07:13 Creatinine 0.78 mg/dL (0.66-1.25) 02/04/18 07:13 Est GFR (CKD-EPI)AfAm >90 (>60 ml/min/1.73 sqM) 02/04/18 07:13 Est GFR (CKD-EPI)NonAf 90 (>60 ml/min/1.73 sqM) 02/04/18 07:13 Glucose 92 mg/dL (74-99) 02/04/18 07:13 POC Glucose (mg/dL) 90 mg/dL (75-99) 02/05/18 11:35 POC Glu Reserve Officer Miguel Kellogg 02/05/18 11:[address] Glu mg/dL 114 01/30/18 05:19 Hemoglobin A1c 5.6 % (4.0-6.0) 01/30/18 05:19 Calcium 9.7 mg/dL (8.4-10.2) 02/04/18 07:13 Ionized Calcium Heidi 6.9 mg/dL (4.5-5.3) H* 01/30/18 05:19 Phosphorus 4.1 mg/dL (2.5-4.5) 01/29/18 16:45 Magnesium 1.7 mg/dL (1.6-2.3) 02/02/18 06:31 Total Bilirubin 0.3 mg/dL (0.2-1.3) 01/29/18 16:45 AST 24 U/L (17-59) 01/29/18 16:45 ALT 22 U/L (21-72) 01/29/18 16:45 Alkaline Phosphatase 54 U/L (38-126) 01/29/18 16:45 Total Creatine Kinase 29 U/L (55-170) L 01/29/18 16:45 CK-MB (CK-2) 1.9 ng/mL (0.0-2.4) 01/29/18 16:45 CK-MB (CK-2) Rel Index 6.6 01/29/18 16:45 Troponin I 0.045 ng/mL (0.000-0.034) H* 01/30/18 05:19 NT-Pro-B Natriuret Pep 71597 pg/mL 01/30/18 05:19 Total Protein 5.8 g/dL (6.3-8.2) L 01/29/18 16:45 Albumin 2.8 g/dL (3.5-5.0) L 01/29/18 16:45 Angiotensin Convert Enz 7 U/L (8-52) L 01/30/18 05:19 PTH Intact 13.3 pg/mL (14.0-72.0) L 02/03/18 19:00 Urine Color Light Yellow 01/29/18 17:00 Urine Appearance Cloudy (Clear) 01/29/18 17:00 Urine pH 6.5 (5.0-8.0) 01/29/18 17:00 Ur Specific Ralph 1.010 (1.001-1.035) 01/29/18 17:00 Urine Protein Trace (Negative) H 01/29/18 17:00 Urine Glucose (UA) Negative (Negative) 01/29/18 17:00 Urine Ketones Negative (Negative) 01/29/18 17:00 Urine Blood Negative (Negative) 01/29/18 17:00 Urine Nitrite Negative (Negative) 01/29/18 17:00 Urine Bilirubin Negative (Negative) 01/29/18 17:00 Urine Urobilinogen <2.0 mg/dL (<2.0) 01/29/18 17:00 Ur Leukocyte Esterase Negative (Negative) 01/29/18 17:00 Urine RBC 4 /hpf (0-5) 01/29/18 17:00 Urine WBC 6 /hpf (0-5) H 01/29/18 17:00 Urine Bacteria Rare /hpf (None) H 01/29/18 17:00 Urine Mucus Rare /hpf (None) H 01/29/18 17:00 Urine Yeast (Budding) Moderate /hpf (None) H 01/29/18 17:00 Stool Occult Blood Negative (Negative) 01/31/18 17:14 Microbiology 01/29/18 17:00 Urine,Clean Catch Urine Culture - Final Assessment and Plan (1) Altered mental status Narrative/Plan: 72-year-old male has had recent hospitalizations with increasing weakness and falls. He has some known underlying pulmonary disease. However now comes in with worsening confusion and some shortness of breath. His chest x -ray shows evidence of some interstitial changes potentially worsen the last check. It appears since his admission his confusion is improved. However he has had several recent hospitalizations with concerns to underlying disease process given the elevated inflammatory parameters, his significant weight loss and declining status. He's had multiple evaluations have included CT scans of the chest abdomen and pelvis and no brain without significant abnormalities except the interstitial disease within his lungs. The patient now has evidence of the markedly elevated calcium and ionized calcium. He has heart failure and there are some limits time which hydration can be given. In with this calcitonin will be given in attempts to reduce his calcium and improve his status. With the pulmonary disease and elevated calcium further evaluation for sarcoidosis is being done requesting an Mikey level, this could potentially tie together the sitting and inflammation and his pulmonary status and elevated calcium. Still remain concerned about an underlying malignancy. 01/31/2018 patient is slightly improved. Still agitated. Calcium is down to 11.9 with a calcitonin that was started. No positive cultures at this time. Hemoglobin is 9.8. Temperature is afebrile. Positive cultures. Remain concerned that the elevated calcium is impacting his mental status and hopefully assist number normalizes he will feel better. Etiology of the elevated calcium remains of concern, Mikey level is pending for further potential evaluation of sarcoidosis. 02/01/2018 the patient has further improvement. Agitation is improved. Calcium is further improved. No positive cultures. Being followed by multiple specialists including neurology. MRI of the brain is pending. Mikey level was normal. Etiology of the elevated calcium remains of great concern and without evidence of sarcoidosis but again be concerned to underlying malignancy. 02/02/2018 some improvement is noted, MRI without new lesions but reveals the ongoing atrophy of white matter with age. Patient still not at baseline but calcium is slowly improving. Etiology of the elevated calcium remains of concern , with the lung abnormalities difficult to exclude underlaying pathology. The foot ulcer is stable and continue the wound care and antibiotic therapy. 02/03/2018 with Haldol patient is much more calm. Working for long-term placement. PTH level has been requested an outpatient endocrinology consult requested. Will complete his course of antibiotics for the infection to the foot. Culture reviewed shows evidence of Pseudomonas and ceftazidime will be utilized at this time. Creatinine is normal dose of 2 g every 8. Endocrinology workup being requested, calcitonin likely discontinued soon 02/05/2018 patient is improved in that he is much less agitated since he's been started on some Haldol. His hypercalcemia is improved. Antibiotic therapy was transitioned to Ceftaroline is tolerating that well. He has been seen by vascular surgery and angiography was performed and there is evidence of significant restenosis likely the etiology of the ulcer. Medical therapy apparently is advised so far. Continue local wound care, antibiotic therapy and offloading. Current Visit: Yes Status: Acute Code(s): R41.82 - ALTERED MENTAL STATUS, UNSPECIFIED SNOMED Code(s): 630333953 (2) Diabetic ulcer of right foot associated with type 2 diabetes mellitus, with fat layer exposed Current Visit: No Status: Acute Code(s): E11.621 - TYPE 2 DIABETES MELLITUS WITH FOOT ULCER; L97.512 - NON-PRS CHRONIC ULCER OTH PRT RIGHT FOOT W FAT LAYER EXPOSED SNOMED Code(s): 9774564586129 (3) Serum calcium elevated Current Visit: Yes Status: Acute Code(s): E83.52 - HYPERCALCEMIA SNOMED Code(s): 98170047
[2018-02-05 16:30] LABS: Glucose,Whole Blood 92 mg/dL (75-99)
[2018-02-05] MEDS: MULTIVITAMINS, THERA 1 EACH TAB PO SCH (16:45)
[2018-02-05 17:23] VITALS: BP 140/67; PULSE 76
--- NOTE | 2018-02-05 18:45 | PN ---
PROGRESS NOTE DATE OF SERVICE: 02/05/2018 This 72-year-old gentleman admitted with CHF, acute exacerbation, also had change in mental status. The patient also underwent abdominal angiography today by Dr. Lott for evaluation of peripheral vascular disease. The patient also had abdominal aortic and runoff which showed moderate to severe in-stent restenosis of the left external iliac artery stent. Patent stent in the right SFA was noted. Medical treatment was recommended. No chest pain. No palpitations. No fever. On exam, alert and oriented x3. Pulse is 77, blood pressure 153/70, respiration normal, temperature normal, pulse ox 96% on room air. HEENT: Conjunctivae normal. Oral mucosa moist. NECK: No jugular venous distention. No carotid bruit. No lymph node enlargement. CARDIOVASCULAR SYSTEM: S1, S2 muffled. No S3. No S4. RESPIRATORY SYSTEM: Breath sounds diminished at the bases. A few scattered rhonchi. No crackles. ABDOMEN: Soft, nontender. No mass palpable. LEGS: No edema. No swelling. NERVOUS SYSTEM: Higher functions as mentioned earlier. Moves all 4 limbs. No focal motor or sensory deficit. LYMPHATICS: No lymph node palpable in neck, axillae or groin. SKIN: No ulcer, rash, bleeding. Labs are at this time noted. ASSESSMENT: 1. Congestive heart failure, acute exacerbation, with acute on chronic diastolic dysfunction. 2. Change in mental status, acute metabolic encephalopathy. 3. Peripheral vascular disease, status post abdominal aortogram with runoff showing moderate to severe in-stent restenosis of the left external iliac artery stent as well as patent stent in the right SFA. 4. Hypercalcemia. 5. Chronic obstructive pulmonary disease. 6. Elevated troponin, indeterminate. 7. History of coronary artery disease, stent. 8. Generalized weakness and gait dysfunction. 9. Hypothyroidism. 10.Diabetes mellitus, type 2. 11.Gastroesophageal reflux disease. 12.Hypertension. 13.History of degenerative joint disease. RECOMMENDATIONS AND DISCUSSION: I recommend to continue current medication, continue with the monitoring, symptomatic treatment. Otherwise at this time I would recommend repeat labs. Closely follow with Cardiology. Guarded prognosis because of multiple complex medical issues. Optimize medical treatment. Eventually ECF rehab. Further recommendations to follow. MMODL / IJN: [id number] / MTDD
--- NOTE | 2018-02-06 05:09 | DS ---
DISCHARGE SUMMARY DATE OF SERVICE: 02/05/2018. ADDENDUM: This 72-year-old gentleman admitted with CHF acute exacerbation also had aortogram today. Runoff showed significant stenosis and Dr. Lott recommend medical treatment. The patient is being discharged in stable condition. Guarded prognosis. To ECF at this time. Total time taken 35 minutes. Please refer to my previous dictation for list of diagnoses and list of medications. On exam, vital signs are stable. Cardiovascular S1, S2. Abdomen soft. Nervous system: No focal deficits. MMODL / IJN: [id number] /
--- NOTE | 2018-02-08 08:04 | IR ---
EXAMINATION TYPE: IR angio abdominal w runoff DATE OF EXAM: 02/05/2018 COMPARISON: NONE HISTORY: Peripheral vascular occlusive disease. Fluoroscopy was provided to the referring clinician. See dictated report from cardiology.
== END 2018-02-05 17:19 | DRG 291 ==
LOC: EC 15:41 → OBSVTOIN 18:54 → 6SEL 18:54 → 5MS5E 02-04 00:12 → 6SEL 02-05 14:41
PROVIDERS: ADMIT Hospitalist; ATTEND Hospitalist
PROC: B4101ZZ Fluoroscopy of Abdominal Aorta using Low Osmolar Contrast (ICD-10-PCS; principal; 2018-02-05 10:28)
DX: I11.0 Hypertensive heart disease with heart failure (principal); G93.41 Metabolic encephalopathy; E44.1 Mild protein-calorie malnutrition; D64.9 Anemia, unspecified; E03.9 Hypothyroidism, unspecified; E11.51 Type 2 diabetes mellitus with diabetic peripheral angiopathy without gangrene; E11.621 Type 2 diabetes mellitus with foot ulcer; E78.5 Hyperlipidemia, unspecified; E83.52 Hypercalcemia; E86.0 Dehydration; H35.30 Unspecified macular degeneration; I25.10 Atherosclerotic heart disease of native coronary artery without angina pectoris; I25.2 Old myocardial infarction; I50.33 Acute on chronic diastolic (congestive) heart failure; J44.9 Chronic obstructive pulmonary disease, unspecified; K21.9 Gastro-esophageal reflux disease without esophagitis; K56.41 Fecal impaction; L97.519 Non-pressure chronic ulcer of other part of right foot with unspecified severity; M19.90 Unspecified osteoarthritis, unspecified site; R29.6 Repeated falls; I65.29 Occlusion and stenosis of unspecified carotid artery; K44.9 Diaphragmatic hernia without obstruction or gangrene; K57.90 Diverticulosis of intestine, part unspecified, without perforation or abscess without bleeding; R26.9 Unspecified abnormalities of gait and mobility; R33.9 Retention of urine, unspecified; E11.42 Type 2 diabetes mellitus with diabetic polyneuropathy; R77.8 Other specified abnormalities of plasma proteins; B96.5 Pseudomonas (aeruginosa) (mallei) (pseudomallei) as the cause of diseases classified elsewhere; R45.1 Restlessness and agitation; Z79.84 Long term (current) use of oral hypoglycemic drugs; Z79.02 Long term (current) use of antithrombotics/antiplatelets; Z79.82 Long term (current) use of aspirin; Z79.899 Other long term (current) drug therapy; Z87.891 Personal history of nicotine dependence; Z95.5 Presence of coronary angioplasty implant and graft; Z83.3 Family history of diabetes mellitus; Z82.49 Family history of ischemic heart disease and other diseases of the circulatory system; Z80.1 Family history of malignant neoplasm of trachea, bronchus and lung; W01.0XXA Fall on same level from slipping, tripping and stumbling without subsequent striking against object, initial encounter; Y92.002 Bathroom of unspecified non-institutional (private) residence as the place of occurrence of the external cause
CPT/HCPCS: 36200; 36245; 36415; 70450; 70553; 71045; 71046; 74022; 75625; 75716; 80048; 80053; 81001; 82164; 82272; 82330; 82550; 82553; 83036; 83735; 83880; 83970; 84100; 84132; 84484; 85025; 85610; 85730; 87086; 93306; 94760; 96361; 96374; 99285

== ENCOUNTER 2018-02-15 15:42 | Inpatient (IN) | payer MEDICARE, BC ==
[2018-02-15 16:37] LABS: Anisocytosis Slight; Basophils % (A) 0 %; Eosinophils # (A) 0.6 k/uL (0-0.7); Eosinophils % (A) 6 %; HCT 39.5 % (39.0-53.0); Lymphocytes # (A) 1.3 k/uL (1.0-4.8); Lymphocytes % (A) 14 %; MCH 30.1 pg (25.0-35.0); MCHC 32.8 g/dL (31.0-37.0); MCV 91.7 fL (80.0-100.0); Mean Platelet Volume 7.7; Monocytes # (A) 0.3 k/uL (0-1.0); Monocytes % (A) 3 %; Neutrophils # (A) 7.1 k/uL (1.3-7.7); Neutrophils % (A) 76 %; Platelet Count 385 k/uL (150-450); RBC 4.31 m/uL (4.30-5.90); RDW 17.4 % (11.5-15.5); WBC 9.4 k/uL (3.8-10.6)
[2018-02-15 16:56] LABS: Albumin 4.1 g/dL (3.5-5.0); Calcium 11.1 mg/dL (8.4-10.2); Total Bilirubin 0.3 mg/dL (0.2-1.3); Total Protein 7.7 g/dL (6.3-8.2)
[2018-02-15] MEDS ORDERED: SODIUM CHLORIDE 0.9% 1,000 ML IV STA ×2 (16:56)
[2018-02-15 17:00] LABS: Creatine Kinase <20 U/L (55-170)
[2018-02-15 17:13] LABS: Creatine Kinase MB 0.9 ng/mL (0.0-2.4); Troponin I 0.034 ng/mL (0.000-0.034)
[2018-02-15 17:32] LABS: Prothrombin Time 10.1 sec (9.0-12.0)
--- NOTE | 2018-02-15 17:32 | XR ---
EXAMINATION TYPE: XR chest 2V DATE OF EXAM: 02/15/2018 COMPARISON: 02/03/2018 HISTORY: Weakness TECHNIQUE: Frontal and lateral views of the chest are obtained. FINDINGS: There is no heart failure nor confluent pneumonic infiltrate. Heart size is normal. There is some ankylotic change in the thoracic spine. There is old left clavicle fracture. There are chest leads. There is old left rib fracture. IMPRESSION: No active cardiopulmonary disease. No change.
[2018-02-15 17:34] LABS: Partial Thromboplastin Time 21.2 sec (22.0-30.0)
[2018-02-15 17:42] LABS: Ammonia <9 umol/L (<30)
[2018-02-15 17:46] LABS: Lactic Acid, Venous 5.5 mmol/L (0.7-2.0)
[2018-02-15 17:48] LABS: Magnesium 1.4 mg/dL (1.6-2.3); Phosphorus 4.3 mg/dL (2.5-4.5)
--- NOTE | 2018-02-15 18:09 | ED ---
Weakness HPI - General Chief complaint: Weakness Stated complaint: Dehydrated, not eating/drinking Time Seen by Provider: 02/15/18 16:39 Source: patient, family Mode of arrival: wheelchair Limitations: no limitations - History of Present Illness Initial comments: This 72-year-old white male presents with a complaint of some dehydration. He apparently has not been eating or drinking much recently. She relates that he is only had 1 or 2 bites of food per meal and will only take a sip from a protein drink. The states that he's been on a gradual progressive decline. He apparently has lost approximately 70 pounds in the last 6 months and 13 pounds in the last 10 days. He was hospitalized a couple weeks ago and then has been at [facility] since. He does not have any actual complaints himself in much of history is obtained per his . There has been no fever or chills. He denies any chest pain or shortness of breath. He has had an occasional cough. He apparently had a urinary catheter placed on previous hospitalization and it was removed this morning. He has not urinated since but is quite dehydrated. There is no abdominal pain or swelling. He has had significant weakness and the states that he is now very unsteady with ambulation and has fallen over the past several weeks. He has been seen in the emergency department for this. He has not fallen recently. She also states that he seems confused at times. further relates that he has had extreme extensive testing and they cannot find out the cause of his problems. The relates that he does not have any known history of cancer although his weight loss is somewhat reminiscent of possible cancer. He was actually at the burning supervisor's office today and was seen by the nurse practitioner and sent here for further evaluation due to his declining condition. He was being seen for his chronic anemia. - Related Data Home Medications Medication Instructions Recorded Confirmed Clopidogrel [Plavix] 75 mg PO DAILY 06/22/15 01/29/18 Fosinopril [Monopril] 10 mg PO HS 05/13/17 01/29/18 Levothyroxine Sodium 25 mcg PO DAILY 05/13/17 01/29/18 metFORMIN HCL 1,000 mg PO BID 08/07/17 01/29/18 Fluticasone/Salmeterol [Advair 1 puff INHALATION RT-BID 12/18/17 01/29/18 100-50 Diskus] Omeprazole [PriLOSEC] 20 mg PO AC-BID 12/18/17 01/29/18 Aspirin EC [Ecotrin Low Dose] 81 mg PO HS 01/29/18 01/29/18 Cod Liver Oil 1 cap PO DAILY 01/29/18 01/29/18 Cognium 1 tab PO DAILY 01/29/18 01/29/18 Cyanocobalamin (Vitamin B-12) 1,000 mcg PO DAILY 01/29/18 01/29/18 [Vitamin B-12] Iron(Unknown Dose) 1 tab PO DAILY 01/29/18 01/29/18 Megestrol [Megace] 400 mg PO BID 01/29/18 01/29/18 Multivitamins, Thera [Multivitamin 1 tab PO DAILY 01/29/18 01/29/18 (formulary)] Pyridoxine HCl (Vitamin B6) 100 mg PO DAILY 01/29/18 01/29/18 [Vitamin B-6] Vitamin B Complex 1 cap PO DAILY 01/29/18 01/29/18 Vitamin E 100 unit PO DAILY 01/29/18 01/29/18 Vits A,C,E/Lutein/Minerals 1 tab PO DAILY 01/29/18 01/29/18 [Ocuvite with Lutein Tablet] Previous Rx's Medication Instructions Recorded Furosemide [Lasix] 40 mg PO BID@0900,1600 #60 tab 02/04/18 LORazepam [Ativan] 0.5 mg PO TID PRN #20 tab 02/04/18 Metoprolol Tartrate [Lopressor] 25 mg PO BID #60 tab 02/04/18 Allergies Allergy/AdvReac Type Severity Reaction Status Date / Time No Known Allergies Allergy Verified 02/15/18 18:43 Review of Systems ROS Statement: Those systems with pertinent positive or pertinent negative responses have been documented in the HPI. ROS Other: All systems not noted in ROS Statement are negative. Past Medical History Past Medical History: Asthma, COPD, Diabetes Mellitus, Eye Disorder, GERD/Reflux , Hyperlipidemia, Hypertension, Myocardial Infarction ([place]), Osteoarthritis (OA) , Pneumonia, Thyroid Disorder, Vascular Disorder Additional Past Medical History / Comment(s): per - pt's general overall health /abilty has been deteriorating last few weeks. getting very foregetfull, weak, falls.MACULAR DEGENERATION lt eye, PVD. hx heart murmur,diverticulosis, carotid stenosis, rt foot ulcer, anemia-sees dr castillo, past lt eye/orbital cellulitis and rt hand cellulitis. hiatal hernia.neuropaathy hands/feet. Last Myocardial Infarction Date:: 1996? History of Any Multi-Drug Resistant Organisms: None Reported Past Surgical History: Orthopedic Surgery Additional Past Surgical History / Comment(s): ANA AORTAGRAM WITH ANA STENTS. , LEFT SHOULDER WITH HARDWARE ( HARDWARE REMOVED) , LEFT KNEE ligament repair. colonocopy , FASCIOTOMY OF RIGHT CALF egd w/bx. Past Anesthesia/Blood Transfusion Reactions: No Reported Reaction Past Psychological History: No Psychological Hx Reported Smoking Status: Former smoker Past Alcohol Use History: Occasional Past Drug Use History: None Reported - Past Family History Sister(s) Family Medical History: Cancer Additional Family Medical History / Comment(s): Lung Cancer Mother Family Medical History: No Reported History Additional Family Medical History / Comment(s): from "natural causes" Father Family Medical History: Coronary Artery Disease (CAD), Diabetes Mellitus, Myocardial Infarction ([place]) General Exam - General Exam Comments Initial Comments: GENERAL: The patient is well nourished but dehydrated. VITAL SIGNS: Heart rate, blood pressure, respiratory rate reviewed as recorded in nurse's notes. EYES: Pupils are round and reactive. Extraocular movements are intact. No conjunctival / lid redness or swelling. ENT: No external evidence of injury, swelling, or ecchymosis. Airway is patent. Throat is clear. Mucous membranes are very dry NECK: Nontender. No swelling or evidence of injury. No subcutaneous emphysema. Trachea is midline. No thyroid mass. HEART: Regular rate and rhythm. Good peripheral pulses. LUNGS/CHEST: Breath sounds clear and equal bilaterally. No rales, rhonchi, or wheezes. No ecchymosis, subcutaneous emphysema, or tenderness. ABDOMEN: Abdomen soft without tenderness. No palpable masses or organomegaly. No peritoneal signs. No abdominal wall swelling or ecchymosis. EXTREMITIES: No extremity tenderness. Normal muscle tone and function. No thoracolumbar tenderness. NEUROLOGIC: Sensation is grossly intact. Cranial nerve exam reveals face is symmetrical, tongue is midline, speech is clear. SKIN: No abrasions or ecchymosis is noted. No induration or masses noted. A chronic foot ulcers noted on the right foot. PSYCHIATRIC: Alert and oriented. Appropriate behavior and judgment. Limitations: no limitations Course Vital Signs 02/15/18 02/15/18 02/15/18 16:12 16:45 17:40 Temperature 97 F L Pulse Rate 93 74 80 Respiratory 18 17 17 Rate Blood Pressure 97/56 118/59 119/57 O2 Sat by Pulse 100 100 98 Oximetry 02/15/18 18:49 Temperature Pulse Rate 79 Respiratory 17 Rate Blood Pressure 125/60 O2 Sat by Pulse 100 Oximetry Medical Decision Making - Medical Decision Making The patient is seen and examined. All diagnostics are reviewed. He is given ample fluid hydration. The EKG shows a normal sinus rhythm at a rate of 81. There is no acute ST-T wave changes noted. The MS intervals 158, QRS duration is 88, and the QTC intervals 471. He also has a chest x-ray completed which does not show any acute processes. The laboratory does show some renal insufficiency as well as a significant elevation of the lactic acid. He is still unable to urinate and a Galicia catheter is placed. The laboratory does show hypercalcemia as well as renal insufficiency and lactic acidosis. He is given a liter of fluids initially but I'm hesitant to give him much more of a fluid bolus as he does have a history of congestive heart failure and just recently was hospitalized for this. Old records are reviewed. It does appear that he has had an extensive workup thus far and has seen multiple specialists. It appears that he has multiple comorbidities. The TSH also is elevated. The urinalysis does not show any definite infection. It is felt as though he would benefit from additional workup inpatient as it is highly suspected that he has underlying cancer. The case is discussed with Dr. Romano and he is agreeable with admission with Dr. Gina ahuja to consult and oncology to consult. - Lab Data Result diagrams: 02/15/18 16:11 02/15/18 16:11 Lab Results 02/15/18 02/15/18 02/15/18 Range/Units 16:11 16:11 16:11 WBC 9.4 (3.8-10.6) k/uL RBC 4.31 (4.30-5.90) m/uL Hgb 13.0 (13.0-17.5) gm/dL Hct 39.5 (39.0-53.0) % MCV 91.7 (80.0-100.0) fL MCH 30.1 (25.0-35.0) pg MCHC 32.8 (31.0-37.0) g/dL RDW 17.4 H (11.5-15.5) % Plt Count 385 (150-450) k/uL Neutrophils % 76 % Lymphocytes % 14 % Monocytes % 3 % Eosinophils % 6 % Basophils % 0 % Neutrophils # 7.1 (1.3-7.7) k/uL Lymphocytes # 1.3 (1.0-4.8) k/uL Monocytes # 0.3 (0-1.0) k/uL Eosinophils # 0.6 (0-0.7) k/uL Basophils # 0.0 (0-0.2) k/uL Anisocytosis Slight PT (9.0-12.0) sec INR (<1.2) APTT (22.0-30.0) sec Sodium 139 (137-145) mmol/L Potassium 5.0 (3.5-5.1) mmol/L Chloride 94 L (98-107) mmol/L Carbon Dioxide 22 (22-30) mmol/L Anion Gap 23 mmol/L BUN 49 H (9-20) mg/dL Creatinine 1.30 H (0.66-1.25) mg/dL Est GFR (CKD-EPI)AfAm 63 (>60 ml/min/1.73 sqM) Est GFR (CKD-EPI)NonAf 54 (>60 ml/min/1.73 sqM) Glucose 121 H (74-99) mg/dL Plasma Lactic Acid Kemal (0.7-2.0) mmol/L Calcium 11.1 H (8.4-10.2) mg/dL Phosphorus (2.5-4.5) mg/dL Magnesium (1.6-2.3) mg/dL Total Bilirubin 0.3 (0.2-1.3) mg/dL AST 28 (17-59) U/L ALT 32 (21-72) U/L Alkaline Phosphatase 49 (38-126) U/L Ammonia (<30) umol/L Total Creatine Kinase <20 L (55-170) U/L CK-MB (CK-2) 0.9 (0.0-2.4) ng/mL CK-MB (CK-2) Rel Index Troponin I 0.034 (0.000-0.034) ng/mL Total Protein 7.7 (6.3-8.2) g/dL Albumin 4.1 (3.5-5.0) g/dL TSH (0.465-4.680) mIU/L Urine Color Urine Appearance (Clear) Urine pH (5.0-8.0) Ur Specific [place] (1.001-1.035) Urine Protein (Negative) Urine Glucose (UA) (Negative) Urine Ketones (Negative) Urine Blood (Negative) Urine Nitrite (Negative) Urine Bilirubin (Negative) Urine Urobilinogen (<2.0) mg/dL Ur Leukocyte Esterase (Negative) Urine RBC (0-5) /hpf Urine WBC (0-5) /hpf Ur Squamous Epith Cells (0-4) /hpf Cellular Casts (0) /lpf Hyaline Casts (0-2) /lpf Urine Mucus (None) /hpf 02/15/18 02/15/18 02/15/18 Range/Units 16:11 16:11 17:15 WBC (3.8-10.6) k/uL RBC (4.30-5.90) m/uL Hgb (13.0-17.5) gm/dL Hct (39.0-53.0) % MCV (80.0-100.0) fL MCH (25.0-35.0) pg MCHC (31.0-37.0) g/dL RDW (11.5-15.5) % Plt Count (150-450) k/uL Neutrophils % % Lymphocytes % % Monocytes % % Eosinophils % % Basophils % % Neutrophils # (1.3-7.7) k/uL Lymphocytes # (1.0-4.8) k/uL Monocytes # (0-1.0) k/uL Eosinophils # (0-0.7) k/uL Basophils # (0-0.2) k/uL Anisocytosis PT 10.1 (9.0-12.0) sec INR 1.0 (<1.2) APTT 21.2 L (22.0-30.0) sec Sodium (137-145) mmol/L Potassium (3.5-5.1) mmol/L Chloride (98-107) mmol/L Carbon Dioxide (22-30) mmol/L Anion Gap mmol/L BUN (9-20) mg/dL Creatinine (0.66-1.25) mg/dL Est GFR (CKD-EPI)AfAm (>60 ml/min/1.73 sqM) Est GFR (CKD-EPI)NonAf (>60 ml/min/1.73 sqM) Glucose (74-99) mg/dL Plasma Lactic Acid Kemal 5.5 H* (0.7-2.0) mmol/L Calcium (8.4-10.2) mg/dL Phosphorus 4.3 (2.5-4.5) mg/dL Magnesium 1.4 L (1.6-2.3) mg/dL Total Bilirubin (0.2-1.3) mg/dL AST (17-59) U/L ALT (21-72) U/L Alkaline Phosphatase (38-126) U/L Ammonia <9 (<30) umol/L Total Creatine Kinase (55-170) U/L CK-MB (CK-2) (0.0-2.4) ng/mL CK-MB (CK-2) Rel Index Troponin I (0.000-0.034) ng/mL Total Protein (6.3-8.2) g/dL Albumin (3.5-5.0) g/dL TSH 12.900 H (0.465-4.680) mIU/L Urine Color Urine Appearance (Clear) Urine pH (5.0-8.0) Ur Specific [place] (1.001-1.035) Urine Protein (Negative) Urine Glucose (UA) (Negative) Urine Ketones (Negative) Urine Blood (Negative) Urine Nitrite (Negative) Urine Bilirubin (Negative) Urine Urobilinogen (<2.0) mg/dL Ur Leukocyte Esterase (Negative) Urine RBC (0-5) /hpf Urine WBC (0-5) /hpf Ur Squamous Epith Cells (0-4) /hpf Cellular Casts (0) /lpf Hyaline Casts (0-2) /lpf Urine Mucus (None) /hpf 02/15/18 Range/Units 17:20 WBC (3.8-10.6) k/uL RBC (4.30-5.90) m/uL Hgb (13.0-17.5) gm/dL Hct (39.0-53.0) % MCV (80.0-100.0) fL MCH (25.0-35.0) pg MCHC (31.0-37.0) g/dL RDW (11.5-15.5) % Plt Count (150-450) k/uL Neutrophils % % Lymphocytes % % Monocytes % % Eosinophils % % Basophils % % Neutrophils # (1.3-7.7) k/uL Lymphocytes # (1.0-4.8) k/uL Monocytes # (0-1.0) k/uL Eosinophils # (0-0.7) k/uL Basophils # (0-0.2) k/uL Anisocytosis PT (9.0-12.0) sec INR (<1.2) APTT (22.0-30.0) sec Sodium (137-145) mmol/L Potassium (3.5-5.1) mmol/L Chloride (98-107) mmol/L Carbon Dioxide (22-30) mmol/L Anion Gap mmol/L BUN (9-20) mg/dL Creatinine (0.66-1.25) mg/dL Est GFR (CKD-EPI)AfAm (>60 ml/min/1.73 sqM) Est GFR (CKD-EPI)NonAf (>60 ml/min/1.73 sqM) Glucose (74-99) mg/dL Plasma Lactic Acid Kemal (0.7-2.0) mmol/L Calcium (8.4-10.2) mg/dL Phosphorus (2.5-4.5) mg/dL Magnesium (1.6-2.3) mg/dL Total Bilirubin (0.2-1.3) mg/dL AST (17-59) U/L ALT (21-72) U/L Alkaline Phosphatase (38-126) U/L Ammonia (<30) umol/L Total Creatine Kinase (55-170) U/L CK-MB (CK-2) (0.0-2.4) ng/mL CK-MB (CK-2) Rel Index Troponin I (0.000-0.034) ng/mL Total Protein (6.3-8.2) g/dL Albumin (3.5-5.0) g/dL TSH (0.465-4.680) mIU/L Urine Color Yellow Urine Appearance Clear (Clear) Urine pH 5.5 (5.0-8.0) Ur Specific [place] 1.013 (1.001-1.035) Urine Protein Trace H (Negative) Urine Glucose (UA) Negative (Negative) Urine Ketones Negative (Negative) Urine Blood Negative (Negative) Urine Nitrite Negative (Negative) Urine Bilirubin Negative (Negative) Urine Urobilinogen <2.0 (<2.0) mg/dL Ur Leukocyte Esterase Moderate H (Negative) Urine RBC 3 (0-5) /hpf Urine WBC 14 H (0-5) /hpf Ur Squamous Epith Cells <1 (0-4) /hpf Cellular Casts 3 (0) /lpf Hyaline Casts 29 H (0-2) /lpf Urine Mucus Rare H (None) /hpf Disposition Clinical Impression: Weakness, Dehydration, Weight loss, Gait instability, Confusion, Renal insufficiency, Hypercalcemia, Failure to thrive, Hypothyroidism, Chronic foot ulcer, Anemia Disposition: ADMITTED IP TO THIS [facility] Condition: Fair Is patient prescribed a controlled substance at d/c from ED?: No Time of Disposition: 18:55 Decision Date: 02/15/18 Decision Time: 18:55
[2018-02-15 18:25] LABS: Appearance,Urine Clear (Clear); Bilirubin,Urine Negative (Negative); Blood,Urine Negative (Negative); Cellular Casts,Urine 3 /lpf (0); Color,Urine Yellow; Glucose,Urine (UA) Negative (Negative); Hyaline Casts,Urine 29 /lpf (0-2); Ketones,Urine Negative (Negative); Leukocyte Esterase,Urine Moderate (Negative); Mucus,Urine Rare /hpf; Nitrite,Urine Negative (Negative); PH, Urine 5.5 (5.0-8.0); Protein,Urine Trace (Negative); RBC,Urine 3 /hpf (0-5); Specific Gravity,Urine 1.013 (1.001-1.035); Squamous Epithelial Cell,Urine <1 /hpf (0-4); Urobilinogen,Urine <2.0 mg/dL (<2.0); WBC,Urine 14 /hpf (0-5)
[2018-02-15] MEDS ORDERED: NALOXONE 0.4 MG/ML 1 ML VIAL IV PRN (18:57)
[2018-02-15] MEDS ORDERED: ACETAMINOPHEN TAB 325 MG TAB PO PRN (18:57)
[2018-02-15] MEDS ORDERED: HYDROcodone/APAP 5-325MG 1 EACH TAB PO PRN (18:57)
[2018-02-15] MEDS ORDERED: ONDANSETRON 4 MG/2 ML VIAL IVP PRN (18:57)
[2018-02-15] MEDS ORDERED: LORazepam 0.5 MG TAB PO PRN (19:52)
[2018-02-15] MEDS ORDERED: BISACODYL 10 MG SUPP RECTAL PRN (19:52)
[2018-02-15] MEDS ORDERED: LACTULOSE 20 GM/30 ML CUP PO PRN (19:52)
[2018-02-15] MEDS ORDERED: NA PHOS,M-B/NA PHOS,DI-BA 133 ML ENEMA RECTAL PRN (19:52)
[2018-02-15] MEDS ORDERED: MAGNESIUM HYDROXIDE 2,400 MG/10 ML CUP PO PRN (19:52)
[2018-02-15 20:50] LABS: Glucose,Whole Blood 98 mg/dL (75-99)
[2018-02-16] MEDS: METOPROLOL TARTRATE 25 MG TAB PO SCH ×3 (00:03→19:54)
[2018-02-16] MEDS: LEVOFLOXACIN 500MG-D5W PMX 500 MG in DEXTROSE/WATER 1 100ML.BAG IVPB SCH ×2 (00:03→23:20)
[2018-02-16] MEDS: LISINOPRIL 10 MG TAB PO SCH ×2 (00:03→19:54)
[2018-02-16] MEDS: ASPIRIN 81 MG PO SCH ×2 (00:05→19:55)
[2018-02-16] MEDS: LEVOTHYROXINE 25 MCG TAB PO SCH (05:51)
--- NOTE | 2018-02-16 05:57 | HP ---
HISTORY AND PHYSICAL DATE OF SERVICE: 02/15/2018 CHIEF COMPLAINTS: Dehydration and as well as weakness. HISTORY OF PRESENT ILLNESS: This 72-year-old gentleman with a past medical history of multiple medical problems such as history of CHF, history of COPD, history of hypothyroidism, diabetes mellitus, GERD, hypertension, being followed by Gina Nation in the outpatient setting was recently admitted with CHF acute exacerbation as well as multiple complex medical issues and patient was sent to [facility] and currently the patient is coming back with complaints of weakness and diminished p.o. intake, loss of weight and multiple other symptomatology. Patient apparently mildly confused also. The patient had a urinary catheter placed in the previous hospitalization, but after removal, the patient was unable to urinate and the patient was taken to [facility] and admitted for further evaluation treatment. There is no history of any fever, rigors, chills, headache, loss of consciousness or seizures at this time. PAST MEDICAL HISTORY: History of asthma, COPD, diabetes mellitus, CHF, COPD, myocardial infarction. MEDICATIONS: Medications prior to admission include home medications are: 1. Metformin 1000 mg p.o. b.i.d. 2. Fleet 133 rectally daily. 3. Milk of magnesia. 4. Dulcolax 10 mg daily p.r.n. 5. Lactulose 10 grams b.i.d. p.r.n. 6. Ativan 0.5 mg t.i.d. p.r.n. 7. Glucerna shakes. 8. Prilosec 20 mg a.c. b.i.d. 9. Lopressor 25 mg p.o. b.i.d. 10.Megace 400 mg p.o. b.i.d. 11.Lasix 40 mg p.o. b.i.d. 12.Vitamin E 100 p.o. daily. 13.Vitamin B complex one p.o. daily. 14.Advair 100/50 one puff b.i.d. 15.Vitamin B6, 100 mg p.o. daily. 16.Ocuvite 1 daily. 17.Plavix 75 mg p.o. daily. 18.Multivitamins 1 p.o. daily. 19.Levothyroxine 25 mcg p.o. daily. 20.Flomax 0.4 daily. 21.Fosinopril 10 mg at bedtime. 22.Vitamin B12, 1000 mcg p.o. daily. 23.Iron sulfate 325 mg daily. 24.Ecotrin 81 mg at bedtime. 25.Cognium 1 tab p.o. daily. 26.Cod liver oil 1 p.o. daily. ALLERGIES: Allergies are none. FAMILY HISTORY: History of coronary artery disease, diabetes, myocardial infarction, lung cancer in the family. SOCIAL HISTORY: Previous history of smoking. No history of alcohol intake. REVIEW OF SYSTEMS: ENT: Diminished hearing and diminished vision. CARDIOVASCULAR SYSTEM: No angina. RESPIRATORY SYSTEM: As mentioned earlier. GI: No nausea or diarrhea. : As mentioned earlier. NERVOUS SYSTEM: As mentioned earlier. ALLERGY IMMUNOLOGY: or hay fever. MUSCULOSKELETAL: As mentioned earlier. HEMATOLOGY/ONCOLOGY: As mentioned earlier. ENDOCRINE: Hypothyroidism. CONSTITUTIONAL: As mentioned earlier. DERMATOLOGY: Negative. RHEUMATOLOGY: Negative. PSYCHIATRY: As mentioned earlier. PHYSICAL EXAMINATION: The patient is alert and oriented x3. Pulse is 83, blood pressure 137/62, respiration 18, temperature 97 degrees, pulse ox 100% on room air. HEENT: Conjunctivae normal. Oral mucosa dry. NECK: No jugular venous distention. No carotid bruit. No lymph node enlargement. CARDIOVASCULAR: S1, S2 muffled. No S3, no S4. RESPIRATORY: Breath sounds are diminished in the bases. No rhonchi. No crackles. ABDOMEN: Soft, nontender. No mass palpable. LEGS: No edema, no swelling. NERVOUS SYSTEM: Higher function as mentioned earlier. Moves all 4 limbs. Mild diffuse weakness. LYMPHATICS: No lymphadenopathy of the neck, axillae or groin. SKIN: No ulcer, rash or bleeding. LABS: CBC within normal limits otherwise sodium 139, potassium 5, creatinine is 1.3. Previous creatinine was normal. Plasma lactic acid 5.5. UA shows some WBC. ASSESSMENT: 1. Dehydration with acute renal failure. 2. Possible acute urinary tract infection secondary to [place] catheter. 3. Hypercalcemia secondary dehydration. 4. History of asthma, chronic obstructive pulmonary disease. 5. History of recent congestive heart failure acute exacerbation with acute on chronic diastolic dysfunction. 6. History of chronic metabolic encephalopathy. 7. Chronic obstructive pulmonary disease. 8. History of coronary artery disease stent. 9. Hypothyroidism. 10.Diabetes mellitus. 11.History of gastroesophageal reflux disease. 12.Hypertension. 13.History of degenerative joint disease. 14.History of macular degeneration. 15.History of nicotine dependence. RECOMMENDATIONS AND DISCUSSION: I recommend to continue current mediation and symptomatic treatment and otherwise IV fluids. Monitor creatinine closely. Repeat labs. Dr. Fuentes will be consulted. Resume the home medications. DVT prophylaxis. I would also recommend to continue PT, OT evaluation. The [place] catheter will monitor the output. Otherwise continue to monitor. The empiric antibiotics also will be initiated. Cultures will obtain. Chest x-ray reviewed personally showed no active cardiopulmonary disease, but some increased bronchovascular markings. We will continue to monitor and further recommendations to follow. A copy of dictation forwarded to Dr. Fuentes who is the primary physician. Please note, the EKG showed irregular baseline but normal sinus rhythm. Repeat labs will also be ordered. FREDERICKL / IJN: [id number] / [id number]
[2018-02-16 07:11] LABS: Glucose,Whole Blood 91 mg/dL (75-99)
[2018-02-16] MEDS: SYMBICORT 80-4.5 MCG INHALER INHALATION SCH ×2 (07:22→20:14)
[2018-02-16] MEDS: INSULIN ASPART 100 UNIT/ML 1 ML 10 ML VIAL SQ SCH ×4 (07:38→22:19)
[2018-02-16] MEDS ORDERED: NON-FORMULARY DRUG (Omeprazole 20 MG) PO SCH (08:00)
[2018-02-16] MEDS ORDERED: NON-FORMULARY DRUG (Glucerna Shake 1 CAN) PO SCH (08:00)
[2018-02-16] MEDS: ENOXAPARIN 40 MG/0.4 ML SYRINGE SQ SCH (08:33)
[2018-02-16] MEDS: MEGESTROL 400 MG/10 ML CUP PO SCH ×2 (08:33→17:50)
[2018-02-16] MEDS: metFORMIN 500 MG TAB PO SCH ×2 (08:33→17:50)
[2018-02-16] MEDS: FUROSEMIDE 40 MG TAB PO SCH ×2 (08:33→12:54)
[2018-02-16] MEDS: PANTOPRAZOLE 40 MG/10 ML VIAL IV SCH (08:33)
[2018-02-16] MEDS ORDERED: COGNIUM PO SCH (09:00)
[2018-02-16 09:21] LABS: Anisocytosis Slight; Basophils % (A) 0 %; Eosinophils # (A) 0.8 k/uL (0-0.7); Eosinophils % (A) 10 %; HCT 31.7 % (39.0-53.0); HGB 10.5 gm/dL (13.0-17.5); Lymphocytes # (A) 1.1 k/uL (1.0-4.8); Lymphocytes % (A) 13 %; MCH 30.5 pg (25.0-35.0); MCV 92.3 fL (80.0-100.0); Mean Platelet Volume 7.5; Monocytes # (A) 0.2 k/uL (0-1.0); Monocytes % (A) 3 %; Neutrophils # (A) 5.9 k/uL (1.3-7.7); Neutrophils % (A) 73 %; Platelet Count 300 k/uL (150-450); RBC 3.44 m/uL (4.30-5.90); RDW 17.5 % (11.5-15.5)
[2018-02-16 09:35] LABS: Anion Gap 11 mmol/L; Blood Urea Nitrogen 39 mg/dL (9-20); Calcium 9.3 mg/dL (8.4-10.2); Carbon Dioxide 26 mmol/L (22-30); Chloride 99 mmol/L (98-107); Glucose 92 mg/dL (74-99); Potassium 3.9 mmol/L (3.5-5.1); Sodium 136 mmol/L (137-145)
--- NOTE | 2018-02-16 09:54 | P.CONS ---
History of Present Illness - Reason for Consult Consult date: 02/16/18 hypercalcemia Requesting physician: Rohit Pisano - Chief Complaint weakness, confusion - History of Present Illness Mr. Leung is a very pleasantly confused male patient who seen Dr. Shelby for his first visit on 11/27/2017 for evaluation of chronic anemia. Patient was at a follow-up visit in the office when patient was noted to be weak , family was noting progressive confusion so, he was sent to the hospital for further evaluation. Patient's lactic acid was 5.5 on admission, calcium 11.1, magnesium 1.4, TSH 12.9. Today when seen, pt is sitting up in the chair, he feels he is a little less confused, he denies fevers, chills, nausea, vomiting, diarrhea, hematuria, he thinks he has been eating and drinking okay, he does have a [place] catheter inserted, he is not able to explain why, he denies any pain. Review of Systems Review of systems as stated in HPI, somewhat difficult as patient is a poor historian ROS unobtainable: due to mental status Past Medical History Past Medical History: Asthma, COPD, Diabetes Mellitus, Eye Disorder, GERD/Reflux , Hyperlipidemia, Hypertension, Myocardial Infarction ([place]), Osteoarthritis (OA) , Pneumonia, Thyroid Disorder, Vascular Disorder Additional Past Medical History / Comment(s): per - pt's general overall health /abilty has been deteriorating last few weeks. getting very foregetfull, weak, falls.MACULAR DEGENERATION lt eye, PVD. hx heart murmur,diverticulosis, carotid stenosis, rt foot ulcer, anemia-sees dr castillo, past lt eye/orbital cellulitis and rt hand cellulitis. hiatal hernia.neuropaathy hands/feet. Last Myocardial Infarction Date:: 1996? History of Any Multi-Drug Resistant Organisms: None Reported Past Surgical History: Orthopedic Surgery Additional Past Surgical History / Comment(s): ANA AORTAGRAM WITH ANA STENTS. , LEFT SHOULDER WITH HARDWARE ( HARDWARE REMOVED) , LEFT KNEE ligament repair. colonocopy , FASCIOTOMY OF RIGHT CALF egd w/bx. Past Anesthesia/Blood Transfusion Reactions: No Reported Reaction Past Psychological History: No Psychological Hx Reported Additional Psychological History / Comment(s): . 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 He lives at home with his and there is a dog and a cat in the home. He travels frequently to [place] where his children and grandchildren live Past Drug Use History: None Reported - Past Family History Sister(s) Family Medical History: Cancer Additional Family Medical History / Comment(s): Lung Cancer Mother Family Medical History: No Reported History Additional Family Medical History / Comment(s): from "natural causes" Father Family Medical History: Coronary Artery Disease (CAD), Diabetes Mellitus, Myocardial Infarction (AL) Medications and Allergies Home Medications Medication Instructions Recorded Confirmed Type Clopidogrel [Plavix] 75 mg PO DAILY@1700 06/22/15 02/15/18 History Levothyroxine Sodium 25 mcg PO DAILY@0800 05/13/17 02/15/18 History metFORMIN HCL 1,000 mg PO BID@0800,1700 08/07/17 02/15/18 History Fluticasone/Salmeterol [Advair 1 puff INHALATION RT-BID@0800,169912/18/1702/15 History 100-50 Diskus] Omeprazole [PriLOSEC] 20 mg PO AC-BID@0800,169912/18/17 02/15/18 History Aspirin EC [Ecotrin Low Dose] 81 mg PO HS 01/29/18 02/15/18 History Cod Liver Oil 1 cap PO DAILY@169901/29/18 02/15/18 History Cognium 1 tab PO DAILY 01/29/18 02/15/18 History Cyanocobalamin (Vitamin B-12) 1,000 mcg PO DAILY@169901/29/18 02/15/18 History [Vitamin B-12] Megestrol [Megace] 400 mg PO BID@0800,169901/29/18 02/15/18 History Multivitamins, Thera [Multivitamin 1 tab PO DAILY@169901/29/18 02/15/18 History (formulary)] Pyridoxine HCl (Vitamin B6) 100 mg PO DAILY@169901/29/18 02/15/18 History [Vitamin B-6] Vitamin B Complex 1 cap PO DAILY@1700 01/29/18 02/15/18 History Vitamin E 100 unit PO DAILY@1700 01/29/18 02/15/18 History Vits A,C,E/Lutein/Minerals 1 tab PO DAILY@1700 01/29/18 02/15/18 History [Ocuvite with Lutein Tablet] LORazepam [Ativan] 0.5 mg PO TID PRN #20 tab 02/04/18 02/15/18 Rx Bisacodyl [Dulcolax] 10 mg RECTAL DAILY PRN 02/15/18 02/15/18 History Ferrous Sulfate [Feosol] 325 mg PO DAILY@1700 02/15/18 02/15/18 History Fosinopril Sodium 10 mg PO HS 02/15/18 02/15/18 History Furosemide [Lasix] 40 mg PO BID@0800,1400 02/15/18 02/15/18 History Glucerna Shake 1 can PO TID@0800,1200,1700 02/15/18 02/15/18 History Lactulose 10 gm PO BID PRN 02/15/18 02/15/18 History Magnesium Hydroxide [Milk of 2,400 mg PO DAILY PRN 02/15/18 02/15/18 History Magnesia Concentrate] Metoprolol Tartrate [Lopressor] 25 mg PO BID@0800,2100 02/15/18 02/15/18 History Na Phos,M-B/Na Phos,Di-Ba [Fleet 133 ml RECTAL ONCE PRN 02/15/18 02/15/18 History Adult] Tamsulosin HCl [Flomax] 0.4 mg PO DAILY@1200 02/15/18 02/15/18 History Allergies Allergy/AdvReac Type Severity Reaction Status Date / Time No Known Allergies Allergy Verified 02/15/18 18:43 Physical Exam Vitals: Vital Signs Temp Pulse Pulse Resp BP BP Pulse Ox 02/16/18 06:30 97.9 F 70 16 150/68 97 02/15/18 21:45 97 F L 83 18 137/62 100 02/15/18 20:18 79 16 126/60 98 02/15/18 18:49 79 17 125/60 100 02/15/18 17:40 80 17 119/57 98 05/21/18 16:45 74 17 118/59 100 02/15/18 16:12 97 F L 93 18 97/56 100 Intake and Output 02/15/18 02/16/18 02/16/18 22:59 06:59 14:59 Intake Total 1100 Output Total 30 Balance -30 1100 Intake: Intake, IV Titration 900 Amount Levofloxacin 500Mg-D5w 100 Pmx 500 mg In Dextrose/ Water 1 100ml.bag @ 100 mls/hr IVPB Q24H [facility] Rx#: [id number] Sodium Chloride 0.9% 1, 800 000 ml @ 100 mls/hr IV . Q10H [facility] Rx#:[id number] Oral 200 Output: Urine 30 Uretheral ([place]) 30 Other: Voiding Method Indwelling Catheter Weight 57.153 kg - Constitutional General appearance: average body habitus, cooperative, no acute distress - EENT Eyes: anicteric sclerae, EOMI ENT: normal oropharynx - Neck Neck: no lymphadenopathy - Respiratory Respiratory: bilateral: CTA - Cardiovascular Heart sounds: normal: S1, S2 leg Peripheral Edema: bilateral: Trace - Gastrointestinal General gastrointestinal: no absent bowel sounds, no decreased bowel sounds, no distended, no hepatomegaly, no hyperactive bowel sounds, normal bowel sounds, no organomegaly, no rigid, no scaphoid, soft, no splenomegaly, no tenderness, no umbilical hernia, no ventral hernia - Integumentary Integumentary: pale - Neurologic Neurologic: CNII-XII intact - Musculoskeletal Musculoskeletal: strength equal bilaterally - Psychiatric Patient oriented to self, did not know the right month, not the next holiday, he knew he was in [place] and that he lives in [place]. Results CBC & Chem 7: 02/16/18 08:17 02/16/18 08:17 Labs: Abnormal Lab Results - Last 24 Hours (Table) 02/15/18 02/15/18 02/15/18 Range/Units 16:11 16:11 16:11 RBC (4.30-5.90) m/uL Hgb (13.0-17.5) gm/dL Hct (39.0-53.0) % RDW 17.4 H (11.5-15.5) % Eosinophils # (0-0.7) k/uL APTT (22.0-30.0) sec Chloride 94 L (98-107) mmol/L BUN 49 H (9-20) mg/dL Creatinine 1.30 H (0.66-1.25) mg/dL Glucose 121 H (74-99) mg/dL Plasma Lactic Acid Ekmal (0.7-2.0) mmol/L Calcium 11.1 H (8.4-10.2) mg/dL Magnesium (1.6-2.3) mg/dL Total Creatine Kinase <20 L (55-170) U/L TSH (0.465-4.680) mIU/L Urine Protein (Negative) Ur Leukocyte Esterase (Negative) Urine WBC (0-5) /hpf Hyaline Casts (0-2) /lpf Urine Mucus (None) /hpf 02/15/18 02/15/18 02/15/18 Range/Units 16:11 16:11 17:15 RBC (4.30-5.90) m/uL Hgb (13.0-17.5) gm/dL Hct (39.0-53.0) % RDW (11.5-15.5) % Eosinophils # (0-0.7) k/uL APTT 21.2 L (22.0-30.0) sec Chloride (98-107) mmol/L BUN (9-20) mg/dL Creatinine (0.66-1.25) mg/dL Glucose (74-99) mg/dL Plasma Lactic Acid Kemal 5.5 H* (0.7-2.0) mmol/L Calcium (8.4-10.2) mg/dL Magnesium 1.4 L (1.6-2.3) mg/dL Total Creatine Kinase (55-170) U/L TSH 12.900 H (0.465-4.680) mIU/L Urine Protein (Negative) Ur Leukocyte Esterase (Negative) Urine WBC (0-5) /hpf Hyaline Casts (0-2) /lpf Urine Mucus (None) /hpf 02/15/18 02/16/18 Range/Units 17:20 08:17 RBC 3.44 L (4.30-5.90) m/uL Hgb 10.5 L (13.0-17.5) gm/dL Hct 31.7 L (39.0-53.0) % RDW 17.5 H (11.5-15.5) % Eosinophils # 0.8 H (0-0.7) k/uL APTT (22.0-30.0) sec Chloride (98-107) mmol/L BUN (9-20) mg/dL Creatinine (0.66-1.25) mg/dL Glucose (74-99) mg/dL Plasma Lactic Acid Kemal (0.7-2.0) mmol/L Calcium (8.4-10.2) mg/dL Magnesium (1.6-2.3) mg/dL Total Creatine Kinase (55-170) U/L TSH (0.465-4.680) mIU/L Urine Protein Trace H (Negative) Ur Leukocyte Esterase Moderate H (Negative) Urine WBC 14 H (0-5) /hpf Hyaline Casts 29 H (0-2) /lpf Urine Mucus Rare H (None) /hpf Microbiology - Last 24 Hours (Table) 02/15/18 17:20 Urine Culture - Preliminary Urine,Catheterized Chest x-ray: report reviewed Assessment and Plan (1) Dehydration Narrative/Plan: Cont ordered hydration, encourage oral intake as tolerated Current Visit: Yes Status: Acute Priority: High Code(s): E86.0 - DEHYDRATION SNOMED Code(s): 39742352 (2) Hypercalcemia Narrative/Plan: No acute intervention at this time, cont hydration and monitor Calcium in AM. Bone scan ordered, multiple labs were ordered form the office, results pending, will report. Current Visit: Yes Status: Chronic Priority: High Code(s): E83.52 - HYPERCALCEMIA SNOMED Code(s): 11264093 (3) Confusion Narrative/Plan: Slowly improving. Pt being treated with ABX for suspect UTI, fluids for hydration and hypercalcemia Current Visit: Yes Status: Acute Priority: High Code(s): R41.0 - DISORIENTATION, UNSPECIFIED SNOMED Code(s): 784607203 (4) Anemia Current Visit: Yes Status: Chronic Priority: Low Code(s): D64.9 - ANEMIA, UNSPECIFIED SNOMED Code(s): 232596659 Plan: Doctor attests: I performed a history and physical examination of this patient, discussed with dictator. I agree with dictators note, documented as a scribe.
--- NOTE | 2018-02-16 10:39 | P.CNPUL ---
History of Present Illness Consult date: 02/16/18 Reason for consult: other Chief complaint: Stomach issues and weight loss History of present illness: Pulmonary consult dated 02/16/2018 This is a 72-year-old gentleman who sees my partner for some mild asthma. He has a history of other medical problems including heart failure hypothyroidism diabetes GERD hypertension. The patient was recently inpatient for an episode of CHF exacerbation and was discharged to [facility]. The patient recently has lost a lot of weight. He states he is also over 70 pounds in the last 3 months. A thorough evaluation for malignancy has been initiated. The patient denies any respiratory issues at this time. States he just doesn't have any appetite. Really denies any nausea vomiting or diarrhea. Just doesn' t feel like eating. For that reason the patient's lost a lot of weight. No fever or chills. No chest pain or chest discomfort. Not coughing up any phlegm or blood. Review of Systems A 12 point review of system is positive for weakness decreased appetite and profound weight loss. He feels like he just doesn't have an appetite. Past Medical History Past Medical History: Asthma, COPD, Diabetes Mellitus, Eye Disorder, GERD/Reflux , Hyperlipidemia, Hypertension, Myocardial Infarction ([place]), Osteoarthritis (OA) , Pneumonia, Thyroid Disorder, Vascular Disorder Additional Past Medical History / Comment(s): per - pt's general overall health /abilty has been deteriorating last few weeks. getting very foregetfull, weak, falls.MACULAR DEGENERATION lt eye, PVD. hx heart murmur,diverticulosis, carotid stenosis, rt foot ulcer, anemia-sees dr castillo, past lt eye/orbital cellulitis and rt hand cellulitis. hiatal hernia.neuropaathy hands/feet. Last Myocardial Infarction Date:: 1996? History of Any Multi-Drug Resistant Organisms: None Reported Past Surgical History: Orthopedic Surgery Additional Past Surgical History / Comment(s): ANA AORTAGRAM WITH ANA STENTS. , LEFT SHOULDER WITH HARDWARE ( HARDWARE REMOVED) , LEFT KNEE ligament repair. colonocopy , FASCIOTOMY OF RIGHT CALF egd w/bx. Past Anesthesia/Blood Transfusion Reactions: No Reported Reaction Past Psychological History: No Psychological Hx Reported Additional Psychological History / Comment(s): . 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 He lives at home with his and there is a dog and a cat in the home. He travels frequently to [place] where his children and grandchildren live Past Drug Use History: None Reported - Past Family History Sister(s) Family Medical History: Cancer Additional Family Medical History / Comment(s): Lung Cancer Mother Family Medical History: No Reported History Additional Family Medical History / Comment(s): from "natural causes" Father Family Medical History: Coronary Artery Disease (CAD), Diabetes Mellitus, Myocardial Infarction ([place]) Medications and Allergies Home Medications Medication Instructions Recorded Confirmed Type Clopidogrel [Plavix] 75 mg PO DAILY@1700 06/22/15 02/15/18 History Levothyroxine Sodium 25 mcg PO DAILY@0800 05/13/17 02/15/18 History metFORMIN HCL 1,000 mg PO BID@0800,1700 08/07/17 02/15/18 History Fluticasone/Salmeterol [Advair 1 puff INHALATION RT-BID@0800,169912/18/1702/15 History 100-50 Diskus] Omeprazole [PriLOSEC] 20 mg PO AC-BID@0800,0 12/18/17 02/15/18 History Aspirin EC [Ecotrin Low Dose] 81 mg PO HS 01/29/18 02/15/18 History Cod Liver Oil 1 cap PO DAILY@17001/29/18 02/15/18 History Cognium 1 tab PO DAILY 01/29/18 02/15/18 History Cyanocobalamin (Vitamin B-12) 1,000 mcg PO DAILY@169901/29/18 02/15/18 History [Vitamin B-12] Megestrol [Megace] 400 mg PO BID@0800,1700 01/29/18 02/15/18 History Multivitamins, Thera [Multivitamin 1 tab PO DAILY@169901/29/18 02/15/18 History (formulary)] Pyridoxine HCl (Vitamin B6) 100 mg PO DAILY@1700 01/29/18 02/15/18 History [Vitamin B-6] Vitamin B Complex 1 cap PO DAILY@1700 01/29/18 02/15/18 History Vitamin E 100 unit PO DAILY@1700 01/29/18 02/15/18 History Vits A,C,E/Lutein/Minerals 1 tab PO DAILY@1700 01/29/18 02/15/18 History [Ocuvite with Lutein Tablet] LORazepam [Ativan] 0.5 mg PO TID PRN #20 tab 02/04/18 02/15/18 Rx Bisacodyl [Dulcolax] 10 mg RECTAL DAILY PRN 02/15/18 02/15/18 History Ferrous Sulfate [Feosol] 325 mg PO DAILY@1700 02/15/18 02/15/18 History Fosinopril Sodium 10 mg PO HS 02/15/18 02/15/18 History Furosemide [Lasix] 40 mg PO BID@0800,1400 02/15/18 02/15/18 History Glucerna Shake 1 can PO TID@0800,1200,1700 02/15/18 02/15/18 History Lactulose 10 gm PO BID PRN 02/15/18 02/15/18 History Magnesium Hydroxide [Milk of 2,400 mg PO DAILY PRN 02/15/18 02/15/18 History Magnesia Concentrate] Metoprolol Tartrate [Lopressor] 25 mg PO BID@0800,2100 02/15/18 02/15/18 History Na Phos,M-B/Na Phos,Di-Ba [Fleet 133 ml RECTAL ONCE PRN 02/15/18 02/15/18 History Adult] Tamsulosin HCl [Flomax] 0.4 mg PO DAILY@1200 02/15/18 02/15/18 History Allergies Allergy/AdvReac Type Severity Reaction Status Date / Time No Known Allergies Allergy Verified 02/15/18 18:43 Physical Exam Osteopathic Statement: *. No significant issues noted on an osteopathic structural exam other than those noted in the History and Physical/Consult. Vitals: Vital Signs Temp Pulse Pulse Resp BP BP Pulse Ox 02/16/18 06:30 97.9 F 70 16 150/68 97 02/15/18 21:45 97 F L 83 18 137/62 100 02/15/18 20:18 79 16 126/60 98 02/15/18 18:49 79 17 125/60 100 02/15/18 17:40 80 17 119/57 98 02/15/18 16:45 74 17 118/59 100 02/15/18 16:12 97 F L 93 18 97/56 100 Intake and Output 02/15/18 02/16/18 02/16/18 22:59 06:59 14:59 Intake Total 1100 Output Total 30 Balance -30 1100 Intake: Intake, IV Titration 900 Amount Levofloxacin 500Mg-D5w 100 Pmx 500 mg In Dextrose/ Water 1 100ml.bag @ 100 mls/hr IVPB Q24H [facility] Rx#: [id number] Sodium Chloride 0.9% 1, 800 000 ml @ 100 mls/hr IV . Q10H [facility] Rx#:[id number] Oral 200 Output: Urine 30 Uretheral ([place]) 30 Other: Voiding Method Indwelling Catheter Weight 57.153 kg No acute distress, oriented 3. The patient appears to be chronically ill. HEENT examination is grossly unremarkable. Mucous membranes are moist. No oral lesions. Neck supple. Full range of motion. No adenopathy thyromegaly or neck vein distention. Cardiovascular examination reveals regular rhythm rate. S1-S2 normal. No S3 or S4. No discernible murmur noted. Lungs reveal diminished but clear breath sounds. Her sounds are equal bilaterally. No adventitious lung sounds including wheezes rhonchi or crackles. Abdomen soft bowel sounds are heard. No masses or tenderness. Extremities are intact. No cyanosis clubbing or edema. Skin is without rash or lesion. Neurologic examination is brief but nonfocal. Results - Laboratory Findings CBC and BMP: 02/16/18 08:17 02/16/18 08:17 PT/INR, D-dimer PT 10.1 sec (9.0-12.0) 02/15/18 16:11 INR 1.0 (<1.2) 02/15/18 16:11 Abnormal lab findings: Abnormal Labs 02/15/18 02/15/18 02/15/18 16:11 16:11 16:11 RBC Hgb Hct RDW 17.4 H Eosinophils # APTT Sodium Chloride 94 L BUN 49 H Creatinine 1.30 H Glucose 121 H Plasma Lactic Acid Kemal Calcium 11.1 H Magnesium Total Creatine Kinase <20 L TSH Urine Protein Ur Leukocyte Esterase Urine WBC Hyaline Casts Urine Mucus 02/15/18 02/15/18 02/15/18 16:11 16:11 17:15 RBC Hgb Hct RDW Eosinophils # APTT 21.2 L Sodium Chloride BUN Creatinine Glucose Plasma Lactic Acid Kemal 5.5 H* Calcium Magnesium 1.4 L Total Creatine Kinase TSH 12.900 H Urine Protein Ur Leukocyte Esterase Urine WBC Hyaline Casts Urine Mucus 02/15/18 02/16/18 02/16/18 17:20 08:17 08:17 RBC 3.44 L Hgb 10.5 L Hct 31.7 L RDW 17.5 H Eosinophils # 0.8 H APTT Sodium 136 L Chloride BUN 39 H Creatinine Glucose Plasma Lactic Acid Kemal Calcium Magnesium Total Creatine Kinase TSH Urine Protein Trace H Ur Leukocyte Esterase Moderate H Urine WBC 14 H Hyaline Casts 29 H Urine Mucus Rare H - Diagnostic Findings Chest x-ray: image reviewed (Chest x-ray labs and medications are all reviewed.) Assessment and Plan Assessment: Assessment Decreased appetite with profound weight loss of unclear etiology Prerenal azotemia Mild but stable asthma Recent history of congestive heart failure requiring admission secondary to acute on chronic diastolic dysfunction Diabetes mellitus Hypothyroidism Hypertension Macular degeneration DJD History of CAD, status post stent. Previous history of tobacco use Plan: Plan dated 02/16/2018 The patient was seen by oncology. The patient was admitted to Dr. Hogan's service. We'll follow along. Currently his asthma stable. Additional recommendations and suggestions are forthcoming. Time with Patient: Greater than 30
[2018-02-16 10:53] LABS: Glucose,Whole Blood 107 mg/dL (75-99)
[2018-02-16] MEDS: TAMSULOSIN 0.4 MG CAP.ER.24H PO SCH (12:53)
[2018-02-16 14:07] VITALS: BMI 20.3
--- NOTE | 2018-02-16 14:59 | NM ---
EXAMINATION TYPE: NM bone scan whole body DATE OF EXAM: 02/16/2018 COMPARISON: NONE HISTORY: 72-year-old male hypercalcemia Technique: Delayed whole-body scanning was performed following the injection of 25.1 mCi Tc 99m MDP. Images acquired 3 hours post injection. FINDINGS: Degenerative uptake at the bilateral sternoclavicular joints, both shoulders, left knee, and right an kle/hindfoot. Scattered degenerative tracer activity throughout the lower cervical and mid thoracic spine. Some focal symmetrical increased tracer activity involving couple of the lower anterior rib ends. No suspicious distribution of tracer activity to suggest a static disease. IMPRESSION: 1. Scattered degenerative uptake prominent at the left knee, right ankle/hindfoot, both shoulders, an d at the sternoclavicular joints. 2. Additional focal uptake in a couple anterior rib ends in the lower thorax could be posttraumatic o r could represent costochondritis. 3. The overall distribution of tracer activity does not suggest metastatic disease.
[2018-02-16] MEDS ORDERED: NON-FORMULARY DRUG (Cod Liver Oil [Cod Liver Oil] 1 CAP) PO SCH (17:00)
[2018-02-16] MEDS ORDERED: NON-FORMULARY DRUG (Vitamin E [Vitamin E] 100 UNIT) PO SCH (17:00)
--- NOTE | 2018-02-16 17:02 | PN ---
PROGRESS NOTE DATE OF SERVICE: February 16, 2018. HISTORY: This 72-year-old gentleman who was admitted with dehydration, acute renal failure, is being closely monitored. The patient also had a UTI also. No chest pain. No palpitations. No fever. EXAM: Alert and oriented x2. Pulse 70, blood pressure 150/60, respirations 16, temperature 97.9, pulse ox 97% room air. HEENT: Conjunctivae normal. NECK: Supple. No JVD. CARDIOVASCULAR: S1 and S2 muffled. LUNGS: Breath sounds diminished in the bases. Few scattered rhonchi. No crackles. ABDOMEN: Soft, nontender. EXTREMITIES: Legs no edema. LABS: WBC 8, hemoglobin is 10.5. Creatinine is was 0.92. ASSESSMENT: 1. Dehydration with acute renal failure with prerenal factors with acute tubular necrosis, present on admission. 2. Possible acute urinary tract infection secondary to [place] catheter. 3. Hypercalcemia secondary to dehydration. 4. History of asthma. 5. History of chronic obstructive pulmonary disease. 6. History of recent congestive heart failure acute exacerbation with acute on chronic diastolic dysfunction. 7. History of chronic metabolic encephalopathy. 8. History of coronary artery disease with stent. 9. Hypothyroidism. 10.Diabetes type 2. 11.History of gastroesophageal reflux disease. 12.History of hypertension. 13.History of degenerative joint disease. 14.History of macular degeneration. 15.History of nicotine dependence. RECOMMENDATIONS: Recommend to continue current management and symptomatic treatment. As this time I recommend continue with cautious IV fluids. Repeat labs. Continue the antibiotics. Guarded prognosis because of multiple complex medical issues. Further recommendations to follow. MMODL / IJN: [id number] /
[2018-02-16 17:14] LABS: Glucose,Whole Blood 148 mg/dL (75-99)
[2018-02-16] MEDS: PYRIDOXINE 50 MG TAB PO SCH (17:48)
[2018-02-16] MEDS: CYANOCOBALAMIN 500 MCG TAB PO SCH (17:48)
[2018-02-16] MEDS: CLOPIDOGREL 75 MG TAB PO SCH (17:50)
[2018-02-16] MEDS: FERROUS SULFATE 325 MG TAB PO SCH (17:50)
[2018-02-16] MEDS: MULTIVITAMINS, THERA 1 EACH TAB PO SCH (17:50)
[2018-02-16] MEDS: VIT A,C & E-LUTEIN-MINERALS 1 EACH TAB PO SCH (17:50)
[2018-02-16] MEDS: B COMPLEX-VIT C-VIT E-ZINC 1 EACH TAB PO SCH (17:51)
[2018-02-16 20:49] LABS: Glucose,Whole Blood 113 mg/dL (75-99)
[2018-02-17] MEDS: LEVOTHYROXINE 25 MCG TAB PO SCH (06:11)
[2018-02-17 06:24] VITALS: RESP 16
[2018-02-17 07:00] LABS: Glucose,Whole Blood 93 mg/dL (75-99)
[2018-02-17] MEDS: INSULIN ASPART 100 UNIT/ML 1 ML 10 ML VIAL SQ SCH ×4 (07:08→21:37)
[2018-02-17] MEDS: SYMBICORT 80-4.5 MCG INHALER INHALATION SCH ×2 (07:39→19:54)
[2018-02-17] MEDS: FUROSEMIDE 40 MG TAB PO SCH ×2 (07:51→13:09)
[2018-02-17] MEDS: metFORMIN 500 MG TAB PO SCH ×2 (07:51→18:27)
[2018-02-17] MEDS: METOPROLOL TARTRATE 25 MG TAB PO SCH ×2 (07:51→21:43)
[2018-02-17] MEDS: MEGESTROL 400 MG/10 ML CUP PO SCH ×2 (07:52→18:25)
[2018-02-17] MEDS: PANTOPRAZOLE 40 MG/10 ML VIAL IV SCH (07:52)
[2018-02-17] MEDS: ENOXAPARIN 40 MG/0.4 ML SYRINGE SQ SCH (07:52)
[2018-02-17 08:09] LABS: Anion Gap 10 mmol/L; Blood Urea Nitrogen 26 mg/dL (9-20); Calcium 9.1 mg/dL (8.4-10.2); Carbon Dioxide 24 mmol/L (22-30); Chloride 104 mmol/L (98-107); Glucose 78 mg/dL (74-99); Potassium 3.7 mmol/L (3.5-5.1); Sodium 138 mmol/L (137-145)
[2018-02-17 08:12] LABS: Anisocytosis Slight; Basophils % (A) 0 %; Eosinophils # (A) 0.8 k/uL (0-0.7); Eosinophils % (A) 12 %; HCT 32.1 % (39.0-53.0); HGB 10.5 gm/dL (13.0-17.5); Lymphocytes # (A) 0.9 k/uL (1.0-4.8); Lymphocytes % (A) 14 %; MCH 30.2 pg (25.0-35.0); MCHC 32.7 g/dL (31.0-37.0); MCV 92.5 fL (80.0-100.0); Mean Platelet Volume 7.3; Monocytes # (A) 0.2 k/uL (0-1.0); Monocytes % (A) 2 %; Neutrophils # (A) 4.5 k/uL (1.3-7.7); Neutrophils % (A) 70 %; Platelet Count 257 k/uL (150-450); RBC 3.47 m/uL (4.30-5.90); RDW 16.9 % (11.5-15.5); WBC 6.5 k/uL (3.8-10.6)
[2018-02-17 12:09] LABS: Glucose,Whole Blood 102 mg/dL (75-99)
--- NOTE | 2018-02-17 12:38 | P.PN ---
Subjective Progress Note Date: 02/17/18 Principal diagnosis: Decreased appetite profound weight loss of unclear etiology, mild stable asthma Pulmonary consult dated 02/16/2018 This is a 72-year-old gentleman who sees my partner for some mild asthma. He has a history of other medical problems including heart failure hypothyroidism diabetes GERD hypertension. The patient was recently inpatient for an episode of CHF exacerbation and was discharged to [facility]. The patient recently has lost a lot of weight. He states he is also over 70 pounds in the last 3 months. A thorough evaluation for malignancy has been initiated. The patient denies any respiratory issues at this time. States he just doesn't have any appetite. Really denies any nausea vomiting or diarrhea. Just doesn' t feel like eating. For that reason the patient's lost a lot of weight. No fever or chills. No chest pain or chest discomfort. Not coughing up any phlegm or blood. On 02/17/2018 patient seen again in medical surgical floor. He is resting in bed, in no acute distress, denies any dyspnea, denies any acute complaints, appears a bit pale and fatigue, but overall remains stable. No active pulmonary issues at this time, signs are stable, she is afebrile, he is on room air with O2 sat 98%, lung sounds are clear to auscultation, no rhonchi or wheezes noted. Today's labs were reviewed, the PVCs 6.5, hemoglobin is 10.5, electrolytes are within normal limits, BUN is 26 and creatinine 0.71. Urine culture showed no growth after 18 hours, and blood cultures was negative at the 24-hour josue. Patient remains on empiric antibiotics in the form of Levaquin for presumed UTI. Patient has been in consultation by medical oncology in regards to his anemia. Objective - Vital Signs Vital signs: Vital Signs Temp 97.9 F 02/17/18 06:23 Pulse 66 02/17/18 08:00 Resp 16 02/17/18 08:00 BP 120/58 02/17/18 06:23 Pulse Ox 98 02/17/18 06:23 Intake & Output 02/16/18 02/17/18 02/17/18 18:59 06:59 18:59 Intake Total 2940 300 720 Output Total 2200 1000 400 Balance 740 -700 320 Weight 57.153 kg Intake: Intake, IV Titration 600 300 Amount Sodium Chloride 0.9% 1, 600 300 000 ml @ 100 mls/hr IV . Q10H STA Rx#:[id number] Oral 2340 720 Output: Urine 2200 1000 400 Uretheral ([place]) 900 1000 400 Other: Voiding Method Indwelling Catheter Indwelling Catheter Indwelling Catheter # Voids 1 # Bowel Movements 1 - Exam No acute distress, oriented 3. The patient appears to be chronically ill. HEENT examination is grossly unremarkable. Mucous membranes are moist. No oral lesions. Neck supple. Full range of motion. No adenopathy thyromegaly or neck vein distention. Cardiovascular examination reveals regular rhythm rate. S1-S2 normal. No S3 or S4. No discernible murmur noted. Lungs reveal diminished but clear breath sounds. Her sounds are equal bilaterally. No adventitious lung sounds including wheezes rhonchi or crackles. Abdomen soft bowel sounds are heard. No masses or tenderness. Extremities are intact. No cyanosis clubbing or edema. Skin is without rash or lesion. Neurologic examination is brief but nonfocal. - Labs CBC & Chem 7: 02/17/18 07:30 02/17/18 07:30 Labs: Abnormal Lab Results - Last 24 Hours (Table) 02/16/18 02/16/18 02/17/18 Range/Units 17:12 20:47 07:30 RBC 3.47 L (4.30-5.90) m/uL Hgb 10.5 L (13.0-17.5) gm/dL Hct 32.1 L (39.0-53.0) % RDW 16.9 H (11.5-15.5) % Lymphocytes # 0.9 L (1.0-4.8) k/uL Eosinophils # 0.8 H (0-0.7) k/uL BUN (9-20) mg/dL POC Glucose (mg/dL) 148 H 113 H (75-99) mg/dL 02/17/18 02/17/18 Range/Units 07:30 12:08 RBC (4.30-5.90) m/uL Hgb (13.0-17.5) gm/dL Hct (39.0-53.0) % RDW (11.5-15.5) % Lymphocytes # (1.0-4.8) k/uL Eosinophils # (0-0.7) k/uL BUN 26 H (9-20) mg/dL POC Glucose (mg/dL) 102 H (75-99) mg/dL Microbiology - Last 24 Hours (Table) 02/15/18 17:20 Urine Culture - Final Urine,Catheterized 02/15/18 17:15 Blood Culture - Preliminary Blood No Growth after 24 hours Assessment and Plan Plan: Assessment: Decreased appetite with profound weight loss of unclear etiology Prerenal azotemia Mild but stable asthma Recent history of congestive heart failure requiring admission secondary to acute on chronic diastolic dysfunction Diabetes mellitus Hypothyroidism Hypertension Macular degeneration DJD History of CAD, status post stent. Previous history of tobacco use Plan: Plan dated 02/16/2018 The patient was seen by oncology. The patient was admitted to Dr. Hogan's service. We'll follow along. Currently his asthma stable. Additional recommendations and suggestions are forthcoming. Plan dated 02/17/2018 Patient remains stable from pulmonary standpoint, no active pulmonary issues at this time, his asthma is stable at this time. Vital signs are stable, no fever or chills. We will sign off at this time, and see the patient on as-needed basis I performed a history & physical examination of the patient and discussed their management with my nurse practitioner, Zainab Valentin. I reviewed the nurse practitioner's note and agree with the documented findings and plan of care. Lung sounds are diminished. The findings and the impression was discussed with the patient. I attest to the documentation by the nurse practitioner. Time with Patient: Less than 30
[2018-02-17] MEDS: TAMSULOSIN 0.4 MG CAP.ER.24H PO SCH (13:09)
--- NOTE | 2018-02-17 16:20 | P.PN ---
Subjective Progress Note Date: 02/17/18 Principal diagnosis: weakness, confusion, wt. loss Pt seen today in follow up, seems to be less confused, not very happy today, no nausea, vomiting, has no appetite, denies SOB, AIDAN, chest pain, acute changes in bowel or bladder, bleeding or swelling, is weak and tired. Objective - Vital Signs Vital signs: Vital Signs Temp 97.9 F 02/17/18 06:23 Pulse 66 02/17/18 08:00 Resp 16 02/17/18 08:00 BP 120/58 02/17/18 06:23 Pulse Ox 98 02/17/18 06:23 Intake & Output 02/16/18 02/17/18 02/17/18 18:59 06:59 18:59 Intake Total 2940 300 720 Output Total 2200 1000 400 Balance 740 -700 320 Weight 57.153 kg Intake: Intake, IV Titration 600 300 Amount Sodium Chloride 0.9% 1, 600 300 000 ml @ 100 mls/hr IV . Q10H STA Rx#:[id number] Oral 2340 720 Output: Urine 2200 1000 400 Uretheral ([place]) 900 1000 400 Other: Voiding Method Indwelling Catheter Indwelling Catheter Indwelling Catheter # Voids 1 # Bowel Movements 1 - Constitutional General appearance: Present: no acute distress, thin - EENT Eyes: Present: anicteric sclerae - Respiratory Respiratory: bilateral: wheezing (few, scattered, anterior) - Cardiovascular Heart sounds: normal: S1, S2 - Peripheral edema leg Peripheral Edema: bilateral: None - Gastrointestinal General gastrointestinal: Present: normal bowel sounds, soft, tenderness Localized gastrointestinal: tender: LUQ, epigastric periumbilical - Integumentary Integumentary: Present: decreased turgor - Neurologic Neurologic: Present: CNII-XII intact - Musculoskeletal Musculoskeletal: Present: generalized weakness, strength equal bilaterally - Psychiatric Psychiatric Comment(s): not wanting to engage in conversation - Labs CBC & Chem 7: 02/17/18 07:30 02/17/18 07:30 Labs: Abnormal Lab Results - Last 24 Hours (Table) 02/16/18 02/16/18 02/17/18 Range/Units 17:12 20:47 07:30 RBC 3.47 L (4.30-5.90) m/uL Hgb 10.5 L (13.0-17.5) gm/dL Hct 32.1 L (39.0-53.0) % RDW 16.9 H (11.5-15.5) % Lymphocytes # 0.9 L (1.0-4.8) k/uL Eosinophils # 0.8 H (0-0.7) k/uL BUN (9-20) mg/dL POC Glucose (mg/dL) 148 H 113 H (75-99) mg/dL 02/17/18 02/17/18 Range/Units 07:30 12:08 RBC (4.30-5.90) m/uL Hgb (13.0-17.5) gm/dL Hct (39.0-53.0) % RDW (11.5-15.5) % Lymphocytes # (1.0-4.8) k/uL Eosinophils # (0-0.7) k/uL BUN 26 H (9-20) mg/dL POC Glucose (mg/dL) 102 H (75-99) mg/dL Microbiology - Last 24 Hours (Table) 02/15/18 17:20 Urine Culture - Final Urine,Catheterized 02/15/18 17:15 Blood Culture - Preliminary Blood No Growth after 24 hours Assessment and Plan (1) Dehydration Narrative/Plan: Cont ordered hydration, encourage oral intake as tolerated Current Visit: Yes Status: Acute Priority: High Code(s): E86.0 - DEHYDRATION SNOMED Code(s): 23851310 (2) Hypercalcemia Narrative/Plan: Calcium level down with hydration. Bone scan was negative. Current Visit: Yes Status: Chronic Priority: High Code(s): E83.52 - HYPERCALCEMIA SNOMED Code(s): 85288424 (3) Confusion Narrative/Plan: Little better today Current Visit: Yes Status: Acute Priority: High Code(s): R41.0 - DISORIENTATION, UNSPECIFIED SNOMED Code(s): 037955067 (4) Anemia Narrative/Plan: Stable, no acute intervention Current Visit: Yes Status: Chronic Priority: Low Code(s): D64.9 - ANEMIA, UNSPECIFIED SNOMED Code(s): 860143686 Plan: Reviewed lab results that are available and bone scan results, called and spoke to on phone. Work up ongoing, Travel Registered Nurse Oncology consult Pt has had 40lb wt loss in about 60 days, reasons unclear at this time.
[2018-02-17 16:34] LABS: Reticulocyte % 2.1 % (0.5-2.0)
[2018-02-17 17:21] LABS: Glucose,Whole Blood 126 mg/dL (75-99)
--- NOTE | 2018-02-17 17:49 | PN ---
PROGRESS NOTE DATE OF SERVICE: 02/17/2018 This 72-year-old gentleman who was admitted with dehydration, acute renal failure, is being closely monitored. The patient also had UTI. No chest pain. No palpitations. No fever. Sensorium is slightly improved. EXAM: Alert and oriented x2. Pulse 64, blood pressure 120/58, respirations 16, temperature 97.9, pulse ox 98% on room air. HEENT: Conjunctivae normal. NECK: No jugular venous distention. Cardiovascular: S1, S2 muffled. Respiratory: Breath sounds diminished in the bases. A few scattered rhonchi. No crackles. Abdomen is soft, nontender. Legs: No edema. No swelling. Central nervous system: Diffusely weak. LABS: WBC 6.2, hemoglobin 10.5, and a bone scan is done. Bone scan shows scattered DJD. No evidence of metastatic disease. ASSESSMENT: 1. Dehydration with acute renal failure with prerenal factors with acute tubular necrosis, present on admission. 2. Possible acute urinary tract infection secondary to [place] catheter. 3. Hypercalcemia secondary to dehydration, possibly. 4. No evidence of metastasis in the bone scan. 5. History of asthma. 6. Chronic obstructive pulmonary disease. 7. History of recent congestive heart failure acute exacerbation with acute on chronic diastolic dysfunction. 8. History of chronic metabolic encephalopathy. 9. History of coronary artery disease, stent. 10.Hypothyroidism. 11.History of diabetes type 2. 12.Gastroesophageal reflux disease. 13.Hypertension. 14.History of degenerative joint disease. 15.History of macular degeneration. 16.History of nicotine dependence. RECOMMENDATIONS AND DISCUSSION: Recommend to continue current medications, management. Monitoring and symptomatic treatment. Otherwise, continue with IV fluids cautiously. Repeat labs. Guarded prognosis because of multiple complex medical issues. Further recommendations to follow. Patient also has diminished appetite. MMODL / IJN: [id number] /
[2018-02-17] MEDS: PYRIDOXINE 50 MG TAB PO SCH (18:26)
[2018-02-17] MEDS: CYANOCOBALAMIN 500 MCG TAB PO SCH (18:27)
[2018-02-17] MEDS: VIT A,C & E-LUTEIN-MINERALS 1 EACH TAB PO SCH (18:27)
[2018-02-17] MEDS: B COMPLEX-VIT C-VIT E-ZINC 1 EACH TAB PO SCH (18:27)
[2018-02-17] MEDS: CLOPIDOGREL 75 MG TAB PO SCH (18:27)
[2018-02-17] MEDS: MULTIVITAMINS, THERA 1 EACH TAB PO SCH (18:27)
[2018-02-17] MEDS: FERROUS SULFATE 325 MG TAB PO SCH (18:27)
[2018-02-17 20:16] LABS: Glucose,Whole Blood 116 mg/dL (75-99)
[2018-02-17] MEDS ORDERED: LEVOFLOXACIN 500 MG TAB PO SCH (21:00)
[2018-02-17] MEDS: ASPIRIN 81 MG PO SCH (21:43)
[2018-02-17] MEDS: LISINOPRIL 10 MG TAB PO SCH (21:43)
[2018-02-17 23:11] VITALS: PULSE 69; TEMP 97.3
[2018-02-18 01:40] LABS: Protein, Total 5.7 g/dL (6.2-8.2)
[2018-02-18 06:19] VITALS: BP 160/70
[2018-02-18 07:11] LABS: Glucose,Whole Blood 93 mg/dL (75-99)
[2018-02-18] MEDS: SYMBICORT 80-4.5 MCG INHALER INHALATION SCH (07:21)
[2018-02-18] MEDS ORDERED: PANTOPRAZOLE 40 MG TABLET PO SCH (07:30)
[2018-02-18 07:42] LABS: Anisocytosis Slight; Basophils % (A) 0 %; Eosinophils # (A) 0.7 k/uL (0-0.7); Eosinophils % (A) 12 %; HCT 31.2 % (39.0-53.0); HGB 10.2 gm/dL (13.0-17.5); Lymphocytes # (A) 0.9 k/uL (1.0-4.8); Lymphocytes % (A) 17 %; MCH 30.7 pg (25.0-35.0); MCHC 32.8 g/dL (31.0-37.0); MCV 93.6 fL (80.0-100.0); Mean Platelet Volume 7.5; Monocytes # (A) 0.2 k/uL (0-1.0); Monocytes % (A) 3 %; Neutrophils # (A) 3.8 k/uL (1.3-7.7); Neutrophils % (A) 68 %; Platelet Count 236 k/uL (150-450); RBC 3.34 m/uL (4.30-5.90); RDW 17.1 % (11.5-15.5); WBC 5.7 k/uL (3.8-10.6)
[2018-02-18] MEDS: LEVOTHYROXINE 25 MCG TAB PO SCH (07:45)
[2018-02-18] MEDS: INSULIN ASPART 100 UNIT/ML 1 ML 10 ML VIAL SQ SCH ×2 (07:48→11:52)
[2018-02-18 08:06] LABS: Anion Gap 11 mmol/L; Blood Urea Nitrogen 21 mg/dL (9-20); Calcium 8.9 mg/dL (8.4-10.2); Carbon Dioxide 22 mmol/L (22-30); Chloride 107 mmol/L (98-107); Glucose 80 mg/dL (74-99); Potassium 3.6 mmol/L (3.5-5.1); Sodium 140 mmol/L (137-145)
[2018-02-18] MEDS: ENOXAPARIN 40 MG/0.4 ML SYRINGE SQ SCH (08:30)
[2018-02-18] MEDS: MEGESTROL 400 MG/10 ML CUP PO SCH (08:30)
[2018-02-18] MEDS: metFORMIN 500 MG TAB PO SCH (08:31)
[2018-02-18] MEDS: METOPROLOL TARTRATE 25 MG TAB PO SCH (08:31)
[2018-02-18] MEDS: FUROSEMIDE 40 MG TAB PO SCH (08:31)
[2018-02-18] MEDS ORDERED: RX INFO: IV CONTRAST WAS GIVEN 1 EACH MISC MISCELLANE PRN (08:46)
--- NOTE | 2018-02-18 10:21 | CT ---
EXAMINATION TYPE: CT chest w con DATE OF EXAM: 02/18/2018 COMPARISON: 01/07/2018 HISTORY: RLL infiltrates CT DLP: 320.5 mGycm Automated exposure control for dose reduction was used. CONTRAST: CT scan of the chest is performed with IV Contrast, patient injected with 100 mL of Isovue 300. FINDINGS: LUNGS: There has been resolution of lower lobe infiltrates. Small residual effusions persist as well as mild right basilar atelectasis. Persistence of prominence superimposed interstitial process. No ev idence for nodule or mass. MEDIASTINUM: There are no greater than 1 cm hilar or mediastinal lymph nodes. No pericardial effusi on is seen. Thoracic aorta is of normal caliber. The heart is not enlarged. UPPER ABDOMEN: Stable renal cystic change of the right kidney. OTHER: Mild persistence of gynecomastia. IMPRESSION: 1. Resolution of basilar infiltrates with small residual pleural effusions and mild right basilar com pressive atelectasis.
--- NOTE | 2018-02-18 11:32 | P.DS ---
Providers Date of admission: 02/15/18 18:57 Expected date of discharge: 02/18/18 Attending physician: Nasir Hogan Consults: 02/15/18 18:59 Consult Physician Routine Consulting Provider: Marshall Shelby Consult Reason/Comments: weight loss, possible cancer, hypercalcemia, anemia Do you want consulting provider notified?: Yes Consult Physician Routine Consulting Provider: Isabelle Fuentes Consult Reason/Comments: pulmonary eval Do you want consulting provider notified?: Yes Primary care physician: Isabelle Fuentes Hospital Course: Final Diagnoses: 1. Dehydration with acute renal failure, prerenal factors with acute tubular necrosis, present on admission 2. Possible acute UTI secondary to [place] catheter 3. Hypercalcemia secondary to dehydration, possibly, improving with hydration. 5. No evidence of metastasis in bone scan 6. COPD 7. History of Recent acute on chronic congestive heart failure, diastolic dysfunction Hospital course: This a 72-year-old gentleman admitted with dehydration, acute renal failure, acute UTI, hypercalcemia. Evaluated by oncology, pulmonary. Received gentle IV fluid hydration, antibiotics. Bone scan reported no evidence of metastasis. Further workup with endocrinology.Significant improvement. Patient has been cleared for discharge by all consults. Patient is being discharged to [facility] subacute rehab in a stable condition with guarded prognosis. EXAM: Alert and oriented 2, no acute distress,CV: S1, S2 muffled,LUNGS: Bilateral bases diminished with occasional scattered rhonchi. ABD: Soft nontender positive bowel sounds. NEURO: Generalized diffuse weakness. The impression and plan of care has been dictated as directed. DrRosa: I performed a history and examination of this patient, discussed the same with the dictator. I agree with the dictator's note ,documented as a scribe. Any additional findings or plans will be noted. Time taken: 35 minutes Patient Condition at Discharge: Stable Plan - Discharge Summary Discharge Rx Participant: No New Discharge Prescriptions: New INSULIN LISPRO (HumaLOG) [humaLOG] 0 unit SQ ACHS #1 vial Levofloxacin [Levaquin] 500 mg PO Q24H #5 tab Continue Clopidogrel [Plavix] 75 mg PO DAILY@1700 Levothyroxine Sodium 25 mcg PO DAILY@0800 metFORMIN HCL 1,000 mg PO BID@0800,1700 Omeprazole [PriLOSEC] 20 mg PO AC-BID@0800,1700 Fluticasone/Salmeterol [Advair 100-50 Diskus] 1 puff INHALATION RT-BID@0800, 1700 Vitamin B Complex 1 cap PO DAILY@1700 Cod Liver Oil 1 cap PO DAILY@1700 Vitamin E 100 unit PO DAILY@1700 Pyridoxine HCl (Vitamin B6) [Vitamin B-6] 100 mg PO DAILY@1700 Cyanocobalamin (Vitamin B-12) [Vitamin B-12] 1,000 mcg PO DAILY@1700 Vits A,C,E/Lutein/Minerals [Ocuvite with Lutein Tablet] 1 tab PO DAILY@1700 Multivitamins, Thera [Multivitamin (formulary)] 1 tab PO DAILY@1700 Megestrol [Megace] 400 mg PO BID@0800,1700 Aspirin EC [Ecotrin Low Dose] 81 mg PO HS Cognium 1 tab PO DAILY Lactulose 10 gm PO BID PRN PRN Reason: Constipation Na Phos,M-B/Na Phos,Di-Ba [Fleet Adult] 133 ml RECTAL ONCE PRN PRN Reason: Constipation Bisacodyl [Dulcolax] 10 mg RECTAL DAILY PRN PRN Reason: Constipation Glucerna Shake 1 can PO TID@0800,1200,1700 Metoprolol Tartrate [Lopressor] 25 mg PO BID@0800,2100 Furosemide [Lasix] 40 mg PO BID@0800,1400 Tamsulosin HCl [Flomax] 0.4 mg PO DAILY@1200 Fosinopril Sodium 10 mg PO HS Ferrous Sulfate [Iron (65 MG Elemental)] 325 mg PO DAILY@1700 Magnesium Hydroxide [Milk of Magnesia Concentrate] 2,400 mg PO DAILY PRN PRN Reason: Constipation LORazepam [Ativan] 0.5 mg PO TID PRN #10 tab PRN Reason: Anxiety Discharge Medication List Clopidogrel [Plavix] 75 mg PO DAILY@1700 06/22/15 [History] Levothyroxine Sodium 25 mcg PO DAILY@0800 05/13/17 [History] metFORMIN HCL 1,000 mg PO BID@0800,1700 08/07/17 [History] Fluticasone/Salmeterol [Advair 100-50 Diskus] 1 puff INHALATION RT-BID@0800, 1700 12/18/17 [History] Omeprazole [PriLOSEC] 20 mg PO AC-BID@0800,1700 12/18/17 [History] Aspirin EC [Ecotrin Low Dose] 81 mg PO HS 01/29/18 [History] Cod Liver Oil 1 cap PO DAILY@169901/29/18 [History] Cognium 1 tab PO DAILY 01/29/18 [History] Cyanocobalamin (Vitamin B-12) [Vitamin B-12] 1,000 mcg PO DAILY@169901/29/18 [ History] Megestrol [Megace] 400 mg PO BID@0800,169901/29/18 [History] Multivitamins, Thera [Multivitamin (formulary)] 1 tab PO DAILY@169901/29/18 [ History] Pyridoxine HCl (Vitamin B6) [Vitamin B-6] 100 mg PO DAILY@169901/29/18 [History ] Vitamin B Complex 1 cap PO DAILY@169901/29/18 [History] Vitamin E 100 unit PO DAILY@169901/29/18 [History] Vits A,C,E/Lutein/Minerals [Ocuvite with Lutein Tablet] 1 tab PO DAILY@01/13 [History] Bisacodyl [Dulcolax] 10 mg RECTAL DAILY PRN 02/15/18 [History] Ferrous Sulfate [Iron (65 MG Elemental)] 325 mg PO DAILY@169902/15/18 [History] Fosinopril Sodium 10 mg PO HS 02/15/18 [History] Furosemide [Lasix] 40 mg PO BID@0800,1400 02/15/18 [History] Glucerna Shake 1 can PO TID@0800,1200,1700 02/15/18 [History] Lactulose 10 gm PO BID PRN 02/15/18 [History] Magnesium Hydroxide [Milk of Magnesia Concentrate] 2,400 mg PO DAILY PRN [History] Metoprolol Tartrate [Lopressor] 25 mg PO BID@0800,2100 02/15/18 [History] Na Phos,M-B/Na Phos,Di-Ba [Fleet Adult] 133 ml RECTAL ONCE PRN 02/15/18 [History ] Tamsulosin HCl [Flomax] 0.4 mg PO DAILY@1200 05/21/18 [History] INSULIN LISPRO (HumaLOG) [humaLOG] 0 unit SQ ACHS #1 vial 02/18/18 [Rx] LORazepam [Ativan] 0.5 mg PO TID PRN #10 tab 02/18/18 [Rx] Levofloxacin [Levaquin] 500 mg PO Q24H #5 tab 02/18/18 [Rx] Follow up Appointment(s)/Referral(s): Richardson Mendes MD [STAFF PHYSICIAN] - 3 Days (While at subacute rehab) Isabelle Fuentes MD [Primary Care Provider] - 1 Week (After DC from subacute rehab) Marshall Shelby MD [STAFF PHYSICIAN] - 1 Week Indy Walton MD [STAFF PHYSICIAN] - 1 Week Activity/Diet/Wound Care/Special Instructions: [place] Diet: Consistent carb Activity: As tolerated CBC, BMP
[2018-02-18 11:39] LABS: Glucose,Whole Blood 105 mg/dL (75-99)
[2018-02-18] MEDS: TAMSULOSIN 0.4 MG CAP.ER.24H PO SCH (12:46)
[2018-02-18 12:51] LABS: Immunoglobulin M 59.7 mg/dL (40.0-280.0)
--- NOTE | 2018-02-18 12:57 | P.PN ---
Subjective Progress Note Date: 02/18/18 Principal diagnosis: Decreased appetite profound weight loss of unclear etiology, mild stable asthma Pulmonary consult dated 02/16/2018 This is a 72-year-old gentleman who sees my partner for some mild asthma. He has a history of other medical problems including heart failure hypothyroidism diabetes GERD hypertension. The patient was recently inpatient for an episode of CHF exacerbation and was discharged to [facility]. The patient recently has lost a lot of weight. He states he is also over 70 pounds in the last 3 months. A thorough evaluation for malignancy has been initiated. The patient denies any respiratory issues at this time. States he just doesn't have any appetite. Really denies any nausea vomiting or diarrhea. Just doesn' t feel like eating. For that reason the patient's lost a lot of weight. No fever or chills. No chest pain or chest discomfort. Not coughing up any phlegm or blood. On 02/17/2018 patient seen again in medical surgical floor. He is resting in bed, in no acute distress, denies any dyspnea, denies any acute complaints, appears a bit pale and fatigue, but overall remains stable. No active pulmonary issues at this time, signs are stable, she is afebrile, he is on room air with O2 sat 98%, lung sounds are clear to auscultation, no rhonchi or wheezes noted. Today's labs were reviewed, the PVCs 6.5, hemoglobin is 10.5, electrolytes are within normal limits, BUN is 26 and creatinine 0.71. Urine culture showed no growth after 18 hours, and blood cultures was negative at the 24-hour josue. Patient remains on empiric antibiotics in the form of Levaquin for presumed UTI. Patient has been in consultation by medical oncology in regards to his anemia. On 02/18/2018 patient seen in follow-up. Denies any fever or chills, denies any worsening dyspnea, denies any chest pain, chest congestion. Remains somewhat generally weak, but in no acute distress. Vital signs are stable, he is afebrile, hemodynamically stable, on room air, is maintaining O2 saturations at 95 for better. Lung sounds are clear to auscultation. CT chest results were noted. Today's lab work shows WBC of 5.7, hemoglobin 10.2, electrolytes are within normal limits, BUN is 21, creatinine is 0.68. Blood and urine cultures are negative. Objective - Vital Signs Vital signs: Vital Signs Temp 97.3 F L 02/18/18 05:35 Pulse 69 02/18/18 08:00 Resp 16 02/18/18 08:00 BP 160/70 02/18/18 05:35 Pulse Ox 95 02/18/18 07:23 Intake & Output 02/17/18 02/18/18 02/18/18 18:59 06:59 18:59 Intake Total 2080 1390 240 Output Total 1450 400 Balance 630 990 240 Weight 57.153 kg Intake: IV 800 0.9 800 Oral 2080 590 240 Output: Urine 1450 400 Uretheral ([place]) 800 400 Other: Voiding Method Indwelling Catheter Indwelling Catheter Indwelling Catheter # Voids 2 2 # Bowel Movements 4 - Exam No acute distress, oriented 3. The patient appears to be chronically ill. HEENT examination is grossly unremarkable. Mucous membranes are moist. No oral lesions. Neck supple. Full range of motion. No adenopathy thyromegaly or neck vein distention. Cardiovascular examination reveals regular rhythm rate. S1-S2 normal. No S3 or S4. No discernible murmur noted. Lungs reveal diminished but clear breath sounds. Her sounds are equal bilaterally. No adventitious lung sounds including wheezes rhonchi or crackles. Abdomen soft bowel sounds are heard. No masses or tenderness. Extremities are intact. No cyanosis clubbing or edema. Skin is without rash or lesion. Neurologic examination is brief but nonfocal. - Labs CBC & Chem 7: 02/18/18 07:22 02/18/18 07:22 Labs: Abnormal Lab Results - Last 24 Hours (Table) 02/17/18 02/17/18 02/17/18 Range/Units 07:30 07:30 17:20 RBC (4.30-5.90) m/uL Hgb (13.0-17.5) gm/dL Hct (39.0-53.0) % RDW (11.5-15.5) % Lymphocytes # (1.0-4.8) k/uL Retic Count 2.1 H (0.5-2.0) % BUN (9-20) mg/dL POC Glucose (mg/dL) 126 H (75-99) mg/dL Total Protein (PEP) 5.7 L (6.2-8.2) g/dL 02/17/18 02/18/18 02/18/18 Range/Units 20:15 07:22 07:22 RBC 3.34 L (4.30-5.90) m/uL Hgb 10.2 L (13.0-17.5) gm/dL Hct 31.2 L (39.0-53.0) % RDW 17.1 H (11.5-15.5) % Lymphocytes # 0.9 L (1.0-4.8) k/uL Retic Count (0.5-2.0) % BUN 21 H (9-20) mg/dL POC Glucose (mg/dL) 116 H (75-99) mg/dL Total Protein (PEP) (6.2-8.2) g/dL 02/18/18 Range/Units 11:37 RBC (4.30-5.90) m/uL Hgb (13.0-17.5) gm/dL Hct (39.0-53.0) % RDW (11.5-15.5) % Lymphocytes # (1.0-4.8) k/uL Retic Count (0.5-2.0) % BUN (9-20) mg/dL POC Glucose (mg/dL) 105 H (75-99) mg/dL Total Protein (PEP) (6.2-8.2) g/dL Microbiology - Last 24 Hours (Table) 02/15/18 17:15 Blood Culture - Preliminary Blood No Growth after 48 hours Assessment and Plan Plan: Assessment: Decreased appetite with profound weight loss of unclear etiology Prerenal azotemia, resolved Mild but stable asthma Recent history of congestive heart failure requiring admission secondary to acute on chronic diastolic dysfunction Diabetes mellitus Hypothyroidism Hypertension Macular degeneration DJD History of CAD, status post stent. Previous history of tobacco use Plan: Plan dated 02/16/2018 The patient was seen by oncology. The patient was admitted to Dr. Hogan's service. We'll follow along. Currently his asthma stable. Additional recommendations and suggestions are forthcoming. Plan dated 02/17/2018 Patient remains stable from pulmonary standpoint, no active pulmonary issues at this time, his asthma is stable at this time. Vital signs are stable, no fever or chills. We will sign off at this time, and see the patient on as-needed basis. Plan dated 02/18/2018 Patient remains stable from pulmonary standpoint, no acute issues, he is on room air, denies fever or chills, denies any dyspnea. Stable for discharge home today, he will need follow-up with Dr. Truong in the office in one week. I performed a history & physical examination of the patient and discussed their management with my nurse practitioner, Zainab Valentin. I reviewed the nurse practitioner's note and agree with the documented findings and plan of care. Lung sounds are diminished. The findings and the impression was discussed with the patient. I attest to the documentation by the nurse practitioner. Time with Patient: Less than 30
[2018-02-18 14:54] LABS: Albumin 2.73 g/dL (3.80-4.90); Gamma Globulin 1.21 g/dL (0.70-1.50)
--- NOTE | 2018-02-18 18:37 | P.PN ---
Subjective Progress Note Date: 02/18/18 Principal diagnosis: weakness, confusion, wt. loss Pt seen today in follow up, he is more lucid and alert, he feels ok, no fevers, nausea or pain Objective - Vital Signs Vital signs: Vital Signs Temp 97.3 F L 02/18/18 05:35 Pulse 69 02/18/18 08:00 Resp 16 02/18/18 08:00 BP 160/70 02/18/18 05:35 Pulse Ox 95 02/18/18 07:23 Intake & Output 02/17/18 02/18/18 02/18/18 18:59 06:59 18:59 Intake Total 2080 1390 240 Output Total 1450 400 Balance 630 990 240 Weight 57.153 kg Intake: IV 800 0.9 800 Oral 2080 590 240 Output: Urine 1450 400 Uretheral ([place]) 800 400 Other: Voiding Method Indwelling Catheter Indwelling Catheter Indwelling Catheter # Voids 2 2 # Bowel Movements 4 - Constitutional General appearance: Present: cooperative, no acute distress, thin - EENT Eyes: Present: anicteric sclerae - Respiratory Respiratory: bilateral: CTA - Cardiovascular Heart sounds: normal: S1, S2 - Peripheral edema leg Peripheral Edema: bilateral: None - Gastrointestinal General gastrointestinal: Present: scaphoid, soft - Neurologic Neurologic: Present: CNII-XII intact - Musculoskeletal Musculoskeletal: Present: generalized weakness, strength equal bilaterally - Psychiatric Psychiatric: Present: A&O x's 3, appropriate affect, intact judgment & insight - Labs CBC & Chem 7: 02/18/18 07:22 02/18/18 07:22 Labs: Abnormal Lab Results - Last 24 Hours (Table) 02/17/18 02/17/18 02/17/18 Range/Units 07:30 07:30 20:15 RBC (4.30-5.90) m/uL Hgb (13.0-17.5) gm/dL Hct (39.0-53.0) % RDW (11.5-15.5) % Lymphocytes # (1.0-4.8) k/uL BUN (9-20) mg/dL POC Glucose (mg/dL) 116 H (75-99) mg/dL Total Protein (PEP) 5.7 L (6.2-8.2) g/dL Albumin (PEP) 2.73 L (3.80-4.90) g/dL IgA 425.0 H (60.0-350.0) mg/dL Free [place] LC, Quant 5.85 H (0.33-1.94) mg/dL Free [place] LC, Quant 3.47 H (0.57-2.63) mg/dL 02/18/18 02/18/18 02/18/18 Range/Units 07:22 07:22 11:37 RBC 3.34 L (4.30-5.90) m/uL Hgb 10.2 L (13.0-17.5) gm/dL Hct 31.2 L (39.0-53.0) % RDW 17.1 H (11.5-15.5) % Lymphocytes # 0.9 L (1.0-4.8) k/uL BUN 21 H (9-20) mg/dL POC Glucose (mg/dL) 105 H (75-99) mg/dL Total Protein (PEP) (6.2-8.2) g/dL Albumin (PEP) (3.80-4.90) g/dL IgA (60.0-350.0) mg/dL Free [place] LC, Quant (0.33-1.94) mg/dL Free [place] LC, Quant (0.57-2.63) mg/dL Microbiology - Last 24 Hours (Table) 02/15/18 17:15 Blood Culture - Preliminary Blood No Growth after 48 hours - Imaging and Cardiology CT scan - chest: report reviewed Assessment and Plan (1) Dehydration Status: Resolved Priority: High Code(s): E86.0 - DEHYDRATION SNOMED Code(s ): 22203267 (2) Hypercalcemia Status: Resolved Priority: High Code(s): E83.52 - HYPERCALCEMIA SNOMED Code(s): 03749960 (3) Confusion Status: Resolved Priority: High Code(s): R41.0 - DISORIENTATION, UNSPECIFIED SNOMED Code(s): 465906932 (4) Anemia Narrative/Plan: Mild, no intervention Status: Chronic Priority: Low Code(s): D64.9 - ANEMIA, UNSPECIFIED SNOMED Code(s): 610576754 Plan: Despite all of the workup no diagnosis/cause for pt symptoms has been identified. Patient is feeling a little better so, he is going to [facility]. We will schedule patient for an endocrinology evaluation, he follows up with Dr. Shelby next week, we will continue to work with patient to try and identify the underlying cause of his rapid physical changes.
== END 2018-02-18 13:05 | DRG 698 ==
LOC: EC 15:42 → 5MS5E 18:57
PROVIDERS: ADMIT Internal Medicine; ATTEND Internal Medicine
DX: T83.518A Infection and inflammatory reaction due to other urinary catheter, initial encounter (principal); N17.0 Acute kidney failure with tubular necrosis; N39.0 Urinary tract infection, site not specified; I50.32 Chronic diastolic (congestive) heart failure; D64.9 Anemia, unspecified; E03.9 Hypothyroidism, unspecified; E11.51 Type 2 diabetes mellitus with diabetic peripheral angiopathy without gangrene; E78.5 Hyperlipidemia, unspecified; E83.52 Hypercalcemia; E86.0 Dehydration; H35.30 Unspecified macular degeneration; I11.0 Hypertensive heart disease with heart failure; I25.10 Atherosclerotic heart disease of native coronary artery without angina pectoris; I25.2 Old myocardial infarction; I49.3 Ventricular premature depolarization; J44.9 Chronic obstructive pulmonary disease, unspecified; K21.9 Gastro-esophageal reflux disease without esophagitis; M19.90 Unspecified osteoarthritis, unspecified site; Z79.02 Long term (current) use of antithrombotics/antiplatelets; Z79.899 Other long term (current) drug therapy; Z80.1 Family history of malignant neoplasm of trachea, bronchus and lung; Z82.49 Family history of ischemic heart disease and other diseases of the circulatory system; Z83.3 Family history of diabetes mellitus; Z87.891 Personal history of nicotine dependence; Z95.5 Presence of coronary angioplasty implant and graft; Z79.84 Long term (current) use of oral hypoglycemic drugs; Z79.890 Hormone replacement therapy; R63.4 Abnormal weight loss; Z68.20 Body mass index [BMI] 20.0-20.9, adult
CPT/HCPCS: 36415; 51702; 71046; 71260; 78306; 80048; 80053; 81001; 82140; 82550; 82553; 82784; 83605; 83735; 83883; 84100; 84165; 84439; 84443; 84484; 85025; 85045; 85610; 85730; 86334; 87040; 87086; 93005; 94640; 94760; 96360; 96361; 99285

== ENCOUNTER 2018-03-01 06:37 | Day surgery (SDC) | payer MEDICARE, BC ==
[2018-02-26 09:05] VITALS: BMI 20.9
[~2018-03-01 06:37] MED LIST changes: +MIDAZOLAM 2 MG/2 ML VIAL IV PRN; +Pre Op ABX Message 1 EACH MISC MISCELLANE ONE
[2018-03-01 07:31] VITALS: RESP 16; TEMP 97.6
[2018-03-01 08:22] LABS: Glucose,Whole Blood 102 mg/dL (75-99)
[2018-03-01] MEDS ORDERED: LIDOCAINE 1% INJ 10MG/ML (20 ML MDV) ONE (08:30)
[2018-03-01] MEDS ORDERED: ePHEDrine SULFATE/0.9% NACL/PF 50 MG/5 ML SYRINGE IV ONE (08:30)
[2018-03-01] MEDS ORDERED: PROPOFOL 10 MG/ML 20 ML VIAL IV ONE (08:30)
--- NOTE | 2018-03-01 08:57 | P.PCN ---
Date of Procedure: 03/01/18 Preoperative Diagnosis: Anemia, hypercalcemia Postoperative Diagnosis: Same Procedure(s) Performed: Bone marrow aspiration and biopsy Anesthesia: MAC Surgeon: Dashawn Chu Line Up Machine Operator #1: Stated None Line Up Machine Operator #2: Stated None Estimated Blood Loss (ml): 1 Pathology: other Condition: stable Disposition: same day Indications for Procedure: Anemia and hypercalcemia of unknown origin Operative Findings: Adequate sample Description of Procedure: The procedure was explained in detail to the patient in the office. He presented to the outpatient endoscopy suite, where IV access and informed consent was obtained. He was then placed in the left lateral decubitus position. The area over both posterior iliac crests was cleaned and prepped with chlorhexidine and sterile draping. IV sedation was then initiated. Local anesthesia was administered to the right posterior hilar crest with lidocaine. A Jamshidi needle was then inserted and bone marrow aspirate and biopsy obtained. On withdrawal of the needle hemostasis was easily achieved. Blood loss was minimal and recovery from sedation was satisfactory. He appeared to have tolerated the procedure well without any obvious complications.
[2018-03-01 09:17] VITALS: BP 99/60; PULSE 93
[2018-03-01 09:18] LABS: Anisocytosis Slight; Basophils % (A) 0 %; Eosinophils # (A) 0.7 k/uL (0-0.7); Eosinophils % (A) 8 %; HCT 37.3 % (39.0-53.0); HGB 12.7 gm/dL (13.0-17.5); Lymphocytes # (A) 1.2 k/uL (1.0-4.8); Lymphocytes % (A) 14 %; MCH 31.6 pg (25.0-35.0); MCHC 33.9 g/dL (31.0-37.0); MCV 93.2 fL (80.0-100.0); Mean Platelet Volume 7.7; Monocytes # (A) 0.3 k/uL (0-1.0); Monocytes % (A) 3 %; Neutrophils # (A) 6.3 k/uL (1.3-7.7); Neutrophils % (A) 73 %; Platelet Count 301 k/uL (150-450); RDW 17.5 % (11.5-15.5); WBC 8.6 k/uL (3.8-10.6)
== END 2018-03-01 09:45 | disposition home or self-care (01) ==
LOC: OR 06:37
PROVIDERS: ATTEND Internal Medicine Hematology & Oncology
DX: D50.0 Iron deficiency anemia secondary to blood loss (chronic) (principal); E83.52 Hypercalcemia; I10 Essential (primary) hypertension; E78.5 Hyperlipidemia, unspecified; J44.9 Chronic obstructive pulmonary disease, unspecified; I25.10 Atherosclerotic heart disease of native coronary artery without angina pectoris; E07.9 Disorder of thyroid, unspecified; N40.0 Benign prostatic hyperplasia without lower urinary tract symptoms; F39 Unspecified mood [affective] disorder; K21.9 Gastro-esophageal reflux disease without esophagitis; H35.30 Unspecified macular degeneration; E11.319 Type 2 diabetes mellitus with unspecified diabetic retinopathy without macular edema; E11.42 Type 2 diabetes mellitus with diabetic polyneuropathy; I25.2 Old myocardial infarction; Z79.899 Other long term (current) drug therapy; Z79.84 Long term (current) use of oral hypoglycemic drugs; Z79.82 Long term (current) use of aspirin; Z79.890 Hormone replacement therapy; Z79.51 Long term (current) use of inhaled steroids; Z79.02 Long term (current) use of antithrombotics/antiplatelets; Z87.891 Personal history of nicotine dependence
CPT/HCPCS: 85025; 38222; J2001; J2704

== ENCOUNTER → 2018-03-01 | Outpatient (CLI) | payer MEDICARE, BC ==
--- NOTE | 2018-03-01 15:17 | US ---
EXAMINATION TYPE: US thyroid st tissue head/neck DATE OF EXAM: 03/01/2018 COMPARISON: NONE CLINICAL HISTORY: E83.52 HYPERCALCEMIA. patient has lost 80lbs unplanned, the past few months, not on thyroid meds GLAND SIZE: Right Lobe: 2.7 x 1.2 x 2.0 cm Overall Parenchyma: homogenous Left Lobe: 1.6 x 0.9 x 0.9 cm Overall Parenchyma: homogeneous Isthmus Thickness: unable to discern with certainty cm NODULES RIGHT: # of nodules measured on right: 0 LEFT: # of nodules measured on left: 0 ISTHMUS: unable to discern due to atrophic tissue Bilateral neck scanned, no evidence of lymphadenopathy. Patient was scanned in his wheelchair. Atrophic lobes bilaterally. Unable to see any parathyroid tiss ue inferior to thyroid. IMPRESSION: Atrophic thyroid gland with no discrete nodule identified.
== END | disposition home or self-care (01) ==
LOC: RADUSWWP 12:26
PROVIDERS: ATTEND Internal Medicine Endocrinology, Diabetes & Metabolism
DX: E03.4 Atrophy of thyroid (acquired) (principal)
CPT/HCPCS: 76536

== ENCOUNTER 2018-04-14 07:17 | Day surgery (SDC) | payer MEDICARE, BC ==
[2018-04-14 08:20] VITALS: TEMP 98
[2018-04-14 08:42] LABS: INR 1.1 (<1.2); Mean Platelet Volume 6.9; Platelet Count 330 k/uL (150-450); Prothrombin Time 10.7 sec (9.0-12.0)
[2018-04-14 08:48] LABS: Glucose,Whole Blood 87 mg/dL (75-99)
[2018-04-14 10:44] VITALS: RESP 16
[2018-04-14 10:59] VITALS: BP 152/65; PULSE 69
--- NOTE | 2018-04-14 11:01 | P.PCN ---
Date of Procedure: 04/14/18 Procedure(s) Performed: Procedure=1-lumbar puncture . Preoperative diagnoses= altered mental status Postoperative diagnosis= out of mental status Anesthesia= local lidocaine infiltration 1% 4 mL for skin and subcu infiltration. Condition= stable. Complications=none. Indication for the procedure= patient with a history of symptoms of altered mental status and she was referred to have a lumbar puncture for diagnostic study procedure risk and benefits and alternatives discussed with the patient and she agreed with the preceding, Description of the procedure= patient in the procedure room sitting position and monitors applied, the back prepped with chlorhexidine x3, sterile technique , local infiltration of the skin and subcu interstitial with lidocaine 1% 4 mL, then 22-gauge quickie Needle advanced slowly at L4 5 interlaminar space, the cerebrospinal fluid was clear, and no heme no paresthesia, a total of 8 mL of clear cerebrospinal fluid collected in 3 different tubes, the needle removed, Band-Aid applied , patient tolerated the procedure well without any complications, and further management as per his neurologist
[2018-04-14 13:38] LABS: Glucose,CSF 45 mg/dL (40-70); Total Protein,CSF 36 mg/dL (12-60)
[2018-04-14 15:03] LABS: Appearance,CSF Clear; CSF Tube Number 3
[2018-04-14 15:04] LABS: Nucleated Cells, CSF 0 u/L (0-5); Red Blood Cell,CSF 0 u/L (0-10)
== END 2018-04-14 11:22 ==
LOC: RADPROMAIN 07:17
PROVIDERS: ATTEND Psychiatry & Neurology Neurology
DX: R41.82 Altered mental status, unspecified (principal)
CPT/HCPCS: 82945; 84157; 85049; 85610; 87070; 87205; 88108; 89050

== ENCOUNTER 2018-06-17 07:13 | Day surgery (SDC) | payer MEDICARE, BC ==
--- NOTE | 2018-06-14 11:04 | P.GSHP ---
History of Present Illness H&P Date: 06/14/18 Chief Complaint: Urinary retention The patient is a 72-year-old white male with urinary retention. He has failed treatment with tamsulosin, and is unable to perform intermittent self- catheterization. Therefore, his options are a chronic indwelling [place] catheter versus a TURP. He has elected to undergo the latter. A cystometrogram shows normal detrusor function. - Constitutional Constitutional: Reports fatigue, Denies fever - Genitourinary (Male) Genitourinary: Reports urinary retention Past Medical History Past Medical History: Asthma, COPD, Diabetes Mellitus, Eye Disorder, GERD/Reflux , Hyperlipidemia, Hypertension, Myocardial Infarction ([place]), Osteoarthritis (OA) , Pneumonia, Thyroid Disorder, Vascular Disorder Additional Past Medical History / Comment(s): PT HAS LOST 75 POUNDS IN PAST 6 MONTHS WITH UNKNOWN CAUSE. per - pt's general overall health /abilty has been deteriorating last few weeks. getting very foregetfull,weak, falls.MACULAR DEGENERATION lt eye, PVD. hx heart murmur,diverticulosis, carotid stenosis, rt foot ulcer, anemia-sees dr castillo, past lt eye/orbital cellulitis and rt hand cellulitis. hiatal hernia.neuropaathy hands/feet. Last Myocardial Infarction Date:: 1996? History of Any Multi-Drug Resistant Organisms: ESBL Date of last positivie culture/infection: 05/10/18 MDRO Source:: ESBL URINE Past Surgical History: Orthopedic Surgery Additional Past Surgical History / Comment(s): ANA AORTAGRAM WITH ANA STENTS. , LEFT SHOULDER WITH HARDWARE ( HARDWARE REMOVED) , LEFT KNEE ligament repair. colonocopy , FASCIOTOMY OF RIGHT CALF egd w/bx. 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 [facility] and a cat in the home. He travels frequently to [place] where his children and grandchildren live Past Drug Use History: None Reported - Past Family History Sister(s) Family Medical History: Cancer Additional Family Medical History / Comment(s): Lung Cancer Mother Family Medical History: No Reported History Additional Family Medical History / Comment(s): from "natural causes" Father Family Medical History: Coronary Artery Disease (CAD), Diabetes Mellitus, Myocardial Infarction ([place]) Medications and Allergies Home Medications Medication Instructions Recorded Confirmed Type Clopidogrel [Plavix] 75 mg PO DAILY@1700 06/22/15 04/21/18 History Fluticasone/Salmeterol [Advair 1 puff INHALATION RT-BID@0800,1700 12/18/1704/21 History 100-50 Diskus] Omeprazole [PriLOSEC] 20 mg PO AC-BID@0800,1700 12/18/17 04/21/18 History Aspirin EC [Ecotrin Low Dose] 81 mg PO HS 01/29/18 04/21/18 History Megestrol [Megace] 400 mg PO BID@0800,1700 01/29/18 04/21/18 History Ferrous Sulfate [Iron (65 MG 325 mg PO DAILY@169902/15/18 04/21/18 History Elemental)] Fosinopril Sodium 10 mg PO HS 02/15/18 04/21/18 History Glucerna Shake 1 can PO TID@0800,1200,1700 02/15/18 04/21/18 History Metoprolol Tartrate [Lopressor] 25 mg PO BID@0800,2100 02/15/18 04/21/18 History INSULIN LISPRO (HumaLOG) [humaLOG] 0 unit SQ ACHS #1 vial 02/18/18 04/21/18 Rx LORazepam [Ativan] 0.5 mg PO TID PRN #10 tab 02/18/18 04/21/18 Rx Potassium Chloride [Klor-Con 10] 10 meq PO DAILY 02/26/18 04/21/18 History Citalopram Hydrobromide [CeleXA] 10 mg PO DAILY 04/14/18 04/21/18 History Fluticasone/Salmeterol [Advair 1 inhalation PO BID 04/14/18 04/21/18 History 100-50 Diskus] Non-Formulary Drug [Non Formulary 1 each PO ONCE 04/14/18 04/21/18 History Drug] Allergies Allergy/AdvReac Type Severity Reaction Status Date / Time No Known Allergies Allergy Verified 04/07/18 10:25 Surgical - Exam - General well developed, well nourished, no distress - Respiratory normal respiratory effort - Abdomen Abdomen: soft, non tender, no guarding, no rigid, no rebound - Genitourinary normal penis with no external lesions, testicles non-tender Assessment and Plan (1) Urinary retention due to benign prostatic hyperplasia Status: Acute Code(s): N40.1 - BENIGN PROSTATIC HYPERPLASIA WITH LOWER URINARY TRACT SYMP; R33.8 - OTHER RETENTION OF URINE SNOMED Code(s): 508799439 Plan: Cystoscopy, transurethral resection of prostate (TURP). The procedure was reviewed in detail with the patient and his . Potential risks were discussed, which include anesthesia, bleeding, infection, urinary incontinence, vesical neck contracture, and persistent urinary retention.
[2018-06-16 12:59] VITALS: BMI 24.0
[~2018-06-17 07:13] MED LIST changes: +DEXAMETHASONE SOD PHOSPHATE 10 MG/ML 1 ML VIAL IV ONE; +ONDANSETRON 4 MG/2 ML VIAL IVP ONE; -Pre Op ABX Message 1 EACH MISC MISCELLANE ONE; +ceFAZolin IN SWFI 2 GM/20 ML SYRINGE IVP ONE; +fentaNYL (PF) 50 MCG/ML 2 ML AMP IV PRN
[2018-06-17 08:57] LABS: Glucose,Whole Blood 104 mg/dL (75-99)
[2018-06-17] MEDS ORDERED: MIDAZOLAM 2 MG/2 ML VIAL ONE (09:05)
[2018-06-17] MEDS: PIPERACILLIN-TAZOBACTAM 3.375 GM in DEXTROSE/WATER 1 50ML.BAG IVPB STA ×2 (09:05→09:20)
[2018-06-17] MEDS ORDERED: fentaNYL (PF) 50 MCG/ML 2 ML AMP ONE (09:05)
--- NOTE | 2018-06-17 10:27 | P.OP ---
Date of Procedure: 06/17/18 Preoperative Diagnosis: Urinary retention secondary to BPH Postoperative Diagnosis: Same Procedure(s) Performed: Cystoscopy, Bipolar Transurethral Resection of Prostate (TURP) Anesthesia: spinal Surgeon: Grabiel Milner Estimated Blood Loss (ml): 20 IV fluids (ml): 200 Pathology: other (Prostate tissue fragments) Condition: stable Disposition: PACU Indications for Procedure: The patient is a 72-year-old white male with urinary retention. He has failed treatment with tamsulosin, and is unable to perform intermittent self- catheterization. Therefore, his options are a chronic indwelling [place] catheter versus a TURP. He has elected to undergo the latter. A cystometrogram shows normal detrusor function. Operative Findings: High median bar Description of Procedure: The patient was taken in the operating room and placed in the dorsolithotomy position after being given a spinal anesthetic. The external genitalia was prepped and draped sterilely. The 25-Cymraes ACMI resectoscope sheath was introduced into the bladder. The bladder was inspected. Both ureteral orifices were of normal anatomic location and configuration, and clear urine effluxed from both. No tumors or foreign bodies were seen. There was evidence of catheter cystitis. Examination of the prostate revealed partial obstruction with a bilobar configuration, and a high median bar. Using the bipolar cutting loop, floor of the prostate was resected up to the level of the verumontanum. Multiple calculi were unroofed to the left of the midline. The lateral lobes were conservatively resected, without resecting the anterior tissue, to minimize the risk of a postoperative vesical neck contracture. This left the prostatic fossa open. The prostatic fossa was then carefully examined, and any areas of bleeding were controlled with electrocautery. Excellent hemostasis was attained. The resectoscope was withdrawn into the bulbous urethra. The external urinary sphincter remained intact. The prostate tissue fragments were removed and sent for pathologic examination. The resectoscope was removed, and a 20 Cymraes [place] catheter was placed. The return was clear. The patient tolerated the procedure well was taken to the recovery room in stable condition.
[2018-06-17 10:29] VITALS: TEMP 97.4
[2018-06-17 10:35] LABS: Glucose,Whole Blood 103 mg/dL (75-99)
[2018-06-17 13:35] VITALS: RESP 16
[2018-06-17 13:56] VITALS: BP 123/71; PULSE 61
== END 2018-06-17 14:34 ==
LOC: OR 07:13
PROVIDERS: ATTEND Urology
DX: N40.1 Benign prostatic hyperplasia with lower urinary tract symptoms (principal); R33.8 Other retention of urine; N13.8 Other obstructive and reflux uropathy; I25.2 Old myocardial infarction; E78.5 Hyperlipidemia, unspecified; I10 Essential (primary) hypertension; I25.10 Atherosclerotic heart disease of native coronary artery without angina pectoris; Z79.02 Long term (current) use of antithrombotics/antiplatelets; Z79.4 Long term (current) use of insulin; E11.40 Type 2 diabetes mellitus with diabetic neuropathy, unspecified; K21.9 Gastro-esophageal reflux disease without esophagitis; J44.9 Chronic obstructive pulmonary disease, unspecified; Z95.5 Presence of coronary angioplasty implant and graft; Z79.51 Long term (current) use of inhaled steroids; M19.90 Unspecified osteoarthritis, unspecified site; E07.9 Disorder of thyroid, unspecified; Z87.01 Personal history of pneumonia (recurrent); Z87.891 Personal history of nicotine dependence; Z79.82 Long term (current) use of aspirin
CPT/HCPCS: 88305; 52601; J2250; J1100; J2405; J3010; J2543

== ENCOUNTER 2018-06-29 21:57 | Inpatient (IN) | payer MEDICARE, BC, OTHER ==
[2018-06-29] MEDS ORDERED: AMPICILLIN-SULBACTAM 3 GM in SODIUM CHLORIDE 0.9% 100 ML IVPB STA (22:39)
[2018-06-29] MEDS ORDERED: ACETAMINOPHEN TAB 325 MG TAB PO STA (22:39)
--- NOTE | 2018-06-29 23:29 | XR ---
EXAMINATION TYPE: XR chest 1V portable DATE OF EXAM: 06/29/2018 COMPARISON: 02/15/2018 HISTORY: Fever altered mental status TECHNIQUE: Single frontal view of the chest is obtained. FINDINGS: Heart and mediastinum are within normal limits. There is coarsening of the interstitial ma rkings. There is no definite pleural effusion. Thoracic aorta is atheromatous. There is old fracture left clavicle. 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 Mild heart failure is possible.
[2018-06-29 23:30] LABS: Basophils % (A) 0 %; Eosinophils # (A) 0.6 k/uL (0-0.7); Eosinophils % (A) 11 %; HCT 27.5 % (39.0-53.0); HGB 9.1 gm/dL (13.0-17.5); Lymphocytes # (A) 0.9 k/uL (1.0-4.8); Lymphocytes % (A) 15 %; MCH 33.3 pg (25.0-35.0); MCHC 32.9 g/dL (31.0-37.0); MCV 101.3 fL (80.0-100.0); Mean Platelet Volume 7.6; Monocytes # (A) 0.2 k/uL (0-1.0); Monocytes % (A) 4 %; Neutrophils # (A) 3.9 k/uL (1.3-7.7); Neutrophils % (A) 68 %; Platelet Count 320 k/uL (150-450); RBC 2.72 m/uL (4.30-5.90); WBC 5.7 k/uL (3.8-10.6)
[2018-06-29 23:50] LABS: ALT 17 U/L (21-72); AST 12 U/L (17-59); Albumin 2.7 g/dL (3.5-5.0); Alkaline Phosphatase 41 U/L (38-126); Anion Gap 9 mmol/L; Blood Urea Nitrogen 27 mg/dL (9-20); Calcium 9.3 mg/dL (8.4-10.2); Carbon Dioxide 23 mmol/L (22-30); Chloride 105 mmol/L (98-107); Glucose 102 mg/dL (74-99); Potassium 4.5 mmol/L (3.5-5.1); Sodium 137 mmol/L (137-145); Total Bilirubin 0.2 mg/dL (0.2-1.3); Total Protein 5.8 g/dL (6.3-8.2)
[2018-06-30 00:02] LABS: Partial Thromboplastin Time 23.5 sec (22.0-30.0); Prothrombin Time 9.7 sec (9.0-12.0)
--- NOTE | 2018-06-30 00:41 | CT ---
EXAMINATION TYPE: CT orbits w con DATE OF EXAM: 06/30/2018 COMPARISON: CT brain 01/29/2018 HISTORY: pain and swelling in right eye CT DLP: 384.4 mGycm Automated exposure control for dose reduction was used. CONTRAST: Performed with IV Contrast, patient injected with 100mL mL of Isovue 300. FINDINGS: The orbital margins are intact. There is right-sided exophthalmos. There is mild preseptal soft tissu e swelling around the right orbit. There is soft tissue swelling on the right side of the nasal bone. There is minimal mucosal thickening in the right maxillary sinus. I see no bony destructive process. I see no retro-orbital mass. There is no pathologic enhancement. There is mild mucosal thickening in the frontal sinuses. The extraocular muscles are symmetric. IMPRESSION: MILD SINUSITIS. RIGHT-SIDED EXOPHTHALMUS IS NEW COMPARED TO OLD EXAM. PRESEPTAL PERIORBITAL MILD SOFT TISSUE SWELLING . I DO NOT SEE A CAUSE FOR THE EXOPHTHALMOS. NO RETRO-ORBITAL MASS SEEN. Cerebral atrophy.
[2018-06-30] MEDS ORDERED: LEVOFLOXACIN 750MG-D5W PMX 750 MG in DEXTROSE/WATER 1 150ML.BAG IVPB STA (03:49)
[2018-06-30] MEDS ORDERED: PNEUMONIA PROTOCOL UTILIZED 1 EACH MISC PO PRN (03:49)
[2018-06-30] MEDS ORDERED: LACTULOSE 200 GM/300 ML (FROM 1/2 GAL JUG) PO PRN (03:52)
[2018-06-30] MEDS ORDERED: FUROSEMIDE 40 MG TAB PO PRN (03:52)
[2018-06-30] MEDS ORDERED: BISACODYL 10 MG SUPP RECTAL PRN (03:52)
[2018-06-30] MEDS ORDERED: LORazepam 0.5 MG TAB PO PRN (03:52)
--- NOTE | 2018-06-30 03:59 | ED ---
Eye Problem HPI - General Chief complaint: Eye Problems Stated complaint: Eye Pain Time Seen by Provider: 06/29/18 22:10 Source: patient, family (), EMS Mode of arrival: EMS Limitations: no limitations - History of Present Illness Initial comments: This patient is a 72-year-old man who is sent to be evaluated for redness and swelling adjacent to the right eye. The history is from both the patient and his . When I question the patient, he is not having any complaints other than the swelling around the right eye. He is not having pain. He is denying change in his vision. The patient's adds that he was starting to have some upper respiratory symptoms yesterday, including rhinorrhea, congestion, and a cough, in addition to the periorbital swelling. When the right eye swelling continue to develop they sent him here to have evaluation. chief complaint: eye redness Onset/Timin -: days(s) Location: right eye Place: home If Injury: none Severity scale (1-10): 0 Consistency: constant Associated Symptoms: fever Treatments Prior to Arrival: none - Related Data Home Medications Medication Instructions Recorded Confirmed Clopidogrel [Plavix] 75 mg PO DAILY 06/22/15 06/29/18 Omeprazole [PriLOSEC] 20 mg PO BID 12/18/17 06/29/18 Aspirin EC [Ecotrin Low Dose] 81 mg PO HS 01/29/18 06/29/18 Megestrol [Megace] 400 mg PO DAILY 01/29/18 06/29/18 Ferrous Sulfate [Iron (65 MG 325 mg PO DAILY 02/15/18 06/29/18 Elemental)] Fosinopril Sodium 10 mg PO HS 02/15/18 06/29/18 Glucerna Shake 1 can PO TID@0800,1200,1700 02/15/18 06/29/18 Metoprolol Tartrate [Lopressor] 25 mg PO BID 02/15/18 06/29/18 Potassium Chloride [Klor-Con 10] 10 meq PO DAILY 02/26/18 06/29/18 Citalopram Hydrobromide [CeleXA] 20 mg PO DAILY 04/14/18 06/29/18 Fluticasone/Salmeterol [Advair 1 puff INHALATION RT-BID 07/18/18 10/02/18 100-50 Diskus] Bisacodyl [Dulcolax] 10 mg RECTAL DAILY PRN 06/16/18 06/29/18 Donepezil HCl [Aricept] 10 mg PO HS 06/16/18 06/29/18 Gabapentin [Neurontin] 200 mg PO BID 06/16/18 06/29/18 Tamsulosin HCl [Flomax] 0.8 mg PO DAILY 06/16/18 06/29/18 Furosemide [Lasix] 40 mg PO BID PRN 06/29/18 06/29/18 INSULIN LISPRO (HumaLOG) [HumaLOG] See Protocol SQ ACHS 06/29/18 06/29/18 Lactulose 10 gm PO BID PRN 06/29/18 06/29/18 metFORMIN HCL [Glucophage] 500 mg PO BID 06/29/18 06/29/18 Previous Rx's Medication Instructions Recorded LORazepam [Ativan] 0.5 mg PO TID PRN #10 tab 02/18/18 Allergies Allergy/AdvReac Type Severity Reaction Status Date / Time No Known Allergies Allergy Verified 06/29/18 22:13 Review of Systems ROS Statement: Those systems with pertinent positive or pertinent negative responses have been documented in the HPI. ROS Other: All systems not noted in ROS Statement are negative. Constitutional: Reports: fever Eyes: Denies: eye pain, vision change ENT: Reports: congestion Respiratory: Reports: cough Cardiovascular: Denies: chest pain, palpitations Gastrointestinal: Denies: abdominal pain, vomiting Genitourinary: Denies: dysuria, hematuria Skin: Denies: rash Neurological: Denies: headache, weakness, numbness Past Medical History Past Medical History: Asthma, COPD, Diabetes Mellitus, Eye Disorder, GERD/Reflux , Hyperlipidemia, Hypertension, Myocardial Infarction ([place]), Osteoarthritis (OA) , Pneumonia, Thyroid Disorder, Vascular Disorder Additional Past Medical History / Comment(s): PT HAS LOST 75 POUNDS IN PAST 6 MONTHS WITH UNKNOWN CAUSE. per - pt's general overall health /abilty has been deteriorating last few weeks. getting very foregetfull,weak, falls.MACULAR DEGENERATION lt eye, PVD. hx heart murmur,diverticulosis, carotid stenosis, anemia-sees dr Shelby. hiatal hernia.neuropathy hands/feet. Last Myocardial Infarction Date:: 1996? History of Any Multi-Drug Resistant Organisms: ESBL Date of last positivie culture/infection: 05/10/18 MDRO Source:: ESBL URINE, Past Surgical History: Orthopedic Surgery Additional Past Surgical History / Comment(s): ANA AORTAGRAM WITH ANA STENTS. , LEFT SHOULDER WITH HARDWARE ( HARDWARE REMOVED) , LEFT KNEE ligament repair. colonocopy , FASCIOTOMY OF RIGHT CALF, egd w/bx., Past Anesthesia/Blood Transfusion Reactions: No Reported Reaction Past Psychological History: No Psychological Hx Reported Smoking Status: Former smoker Past Alcohol Use History: None Reported Past Drug Use History: None Reported - Past Family History Sister(s) Family Medical History: Cancer Additional Family Medical History / Comment(s): Lung Cancer Mother Family Medical History: No Reported History Additional Family Medical History / Comment(s): from "natural causes" Father Family Medical History: Coronary Artery Disease (CAD), Diabetes Mellitus, Myocardial Infarction ([place]) General Exam Limitations: no limitations General appearance: alert, in no apparent distress Head exam: Present: atraumatic, normocephalic Eye exam: Present: PERRL, EOMI, periorbital swelling (Right eye). Absent: scleral icterus, conjunctival injection, nystagmus ENT exam: Present: normal oropharynx Respiratory exam: Present: normal lung sounds bilaterally. Absent: respiratory distress, wheezes, rales, rhonchi, stridor Cardiovascular Exam: Present: regular rate, normal rhythm, normal heart sounds. Absent: systolic murmur, diastolic murmur, rubs, gallop GI/Abdominal exam: Present: soft. Absent: distended, tenderness, guarding, rebound, mass Extremities exam: Present: normal inspection, normal capillary refill. Absent: pedal edema, calf tenderness Neurological exam: Present: alert Skin exam: Present: warm, dry, intact, normal color. Absent: rash Course Vital Signs 06/29/18 06/30/18 06/30/18 21:58 00:36 03:15 Temperature 100.6 F H 99.5 F 97.8 F Pulse Rate 75 78 69 Respiratory 18 18 16 Rate Blood Pressure 110/56 119/58 101/54 O2 Sat by Pulse 95 96 95 Oximetry Medical Decision Making - Medical Decision Making 's patient is 72-year-old man sent from the residential to have evaluation of his right eye. He reportedly has history of previous cellulitis near the right eye. The patient is denying complaints other than some swelling there. He is not having eye pain. He has not had any change in his vision. The patient's chest x-ray does appear to show pneumonia. Patient will be admitted to have treatment for this, as well as antibiotics related to what appears to be preseptal cellulitis. Ophthalmology consult added to address the proptosis. - Lab Data Result diagrams: 06/29/18 22:10 06/29/18 22:10 Lab Results 06/29/18 06/29/18 06/29/18 Range/Units 22:10 22:10 22:10 WBC 5.7 (3.8-10.6) k/uL RBC 2.72 L (4.30-5.90) m/uL Hgb 9.1 L (13.0-17.5) gm/dL Hct 27.5 L (39.0-53.0) % MCV 101.3 H (80.0-100.0) fL MCH 33.3 (25.0-35.0) pg MCHC 32.9 (31.0-37.0) g/dL RDW 13.0 (11.5-15.5) % Plt Count 320 (150-450) k/uL Neutrophils % 68 % Lymphocytes % 15 % Monocytes % 4 % Eosinophils % 11 % Basophils % 0 % Neutrophils # 3.9 (1.3-7.7) k/uL Lymphocytes # 0.9 L (1.0-4.8) k/uL Monocytes # 0.2 (0-1.0) k/uL Eosinophils # 0.6 (0-0.7) k/uL Basophils # 0.0 (0-0.2) k/uL PT (9.0-12.0) sec INR (<1.2) APTT (22.0-30.0) sec Sodium 137 (137-145) mmol/L Potassium 4.5 (3.5-5.1) mmol/L Chloride 105 (98-107) mmol/L Carbon Dioxide 23 (22-30) mmol/L Anion Gap 9 mmol/L BUN 27 H (9-20) mg/dL Creatinine 0.78 (0.66-1.25) mg/dL Est GFR (CKD-EPI)AfAm >90 (>60 ml/min/1.73 sqM) Est GFR (CKD-EPI)NonAf 90 (>60 ml/min/1.73 sqM) Glucose 102 H (74-99) mg/dL Plasma Lactic Acid Kemal 2.0 (0.7-2.0) mmol/L Calcium 9.3 (8.4-10.2) mg/dL Total Bilirubin 0.2 (0.2-1.3) mg/dL AST 12 L (17-59) U/L ALT 17 L (21-72) U/L Alkaline Phosphatase 41 (38-126) U/L Total Protein 5.8 L (6.3-8.2) g/dL Albumin 2.7 L (3.5-5.0) g/dL 06/29/18 Range/Units 22:10 WBC (3.8-10.6) k/uL RBC (4.30-5.90) m/uL Hgb (13.0-17.5) gm/dL Hct (39.0-53.0) % MCV (80.0-100.0) fL MCH (25.0-35.0) pg MCHC (31.0-37.0) g/dL RDW (11.5-15.5) % Plt Count (150-450) k/uL Neutrophils % % Lymphocytes % % Monocytes % % Eosinophils % % Basophils % % Neutrophils # (1.3-7.7) k/uL Lymphocytes # (1.0-4.8) k/uL Monocytes # (0-1.0) k/uL Eosinophils # (0-0.7) k/uL Basophils # (0-0.2) k/uL PT 9.7 (9.0-12.0) sec INR 1.0 (<1.2) APTT 23.5 (22.0-30.0) sec Sodium (137-145) mmol/L Potassium (3.5-5.1) mmol/L Chloride (98-107) mmol/L Carbon Dioxide (22-30) mmol/L Anion Gap mmol/L BUN (9-20) mg/dL Creatinine (0.66-1.25) mg/dL Est GFR (CKD-EPI)AfAm (>60 ml/min/1.73 sqM) Est GFR (CKD-EPI)NonAf (>60 ml/min/1.73 sqM) Glucose (74-99) mg/dL Plasma Lactic Acid Kemal (0.7-2.0) mmol/L Calcium (8.4-10.2) mg/dL Total Bilirubin (0.2-1.3) mg/dL AST (17-59) U/L ALT (21-72) U/L Alkaline Phosphatase (38-126) U/L Total Protein (6.3-8.2) g/dL Albumin (3.5-5.0) g/dL Disposition Clinical Impression: Pneumonia, Preseptal cellulitis of right eye, Proptosis, Anemia Disposition: ADMITTED IP TO THIS [facility] Condition: Fair Referrals: Richardson Mendes MD [Primary Care Provider] - 1-2 days
[2018-06-30] MEDS ORDERED: LACTULOSE 20 GM/30 ML CUP PO PRN (04:01)
[2018-06-30] MEDS: SODIUM CHLORIDE 0.9% 1,000 ML IV SCH ×3 (06:23→23:55)
[2018-06-30 07:19] LABS: Glucose,Whole Blood 89 mg/dL (75-99)
[2018-06-30] MEDS: POTASSIUM CHLORIDE ER 10 MEQ TAB.ER.PRT PO SCH (08:09)
[2018-06-30] MEDS: FERROUS SULFATE 325 MG TAB PO SCH (08:09)
[2018-06-30] MEDS: CITALOPRAM HYDROBROMIDE 20 MG TAB PO SCH (08:09)
[2018-06-30] MEDS: PANTOPRAZOLE 40 MG TABLET PO SCH (08:10)
[2018-06-30] MEDS: MEGESTROL 400 MG/10 ML CUP PO SCH (08:10)
[2018-06-30] MEDS: CLOPIDOGREL 75 MG TAB PO SCH (08:10)
[2018-06-30] MEDS: TAMSULOSIN 0.4 MG CAP.ER.24H PO SCH (08:10)
[2018-06-30] MEDS: METOPROLOL TARTRATE 25 MG TAB PO SCH ×2 (08:10→22:03)
[2018-06-30] MEDS: PIPERACILLIN-TAZOBACTAM 3.375 GM in DEXTROSE/WATER 1 50ML.BAG IVPB SCH ×3 (08:10→23:54)
[2018-06-30] MEDS: metFORMIN 500 MG TAB PO SCH ×2 (08:10→22:02)
[2018-06-30] MEDS: GABAPENTIN 100 MG CAP PO SCH ×2 (08:10→22:04)
[2018-06-30 12:39] LABS: Glucose,Whole Blood 109 mg/dL (75-99)
--- NOTE | 2018-06-30 15:09 | CONS ---
CONSULTATION DATE OF SERVICE: 06/30/2018. HISTORY: This is a 72-year-old white male who was admitted to the hospital for redness and swelling in the area around his right eye. The patient states that he is not having any pain and has noticed progressive swelling over the last few days. He further states that he had a similar incident occur approximately one month ago and was treated with antibiotics and the previous episode had resolved. Visual acuity measured 2020 bilaterally. Pupils were equal and reactive to light. There was no afferent defect. Extraocular movements were full in all gaze positions. There was no evidence of diplopia. On penlight exam, there was obvious swelling in the periorbital tissues around the right eye. There was a mild amount of erythema on the overlying tissue as well. The conjunctivae exhibited mild amount of chemosis in the right eye. The corneas were clear. The anterior chambers were quiet and the left eye appeared normal and was uninvolved. IMPRESSION: Preseptal cellulitis, right side. I agree with administering IV antibiotics and I would expect improvement in his condition the next day or two. If ENT has not been consulted, I would also recommend that as a recurrence of a preseptal cellulitis or cellulitis is sometimes suggestive of a sinus etiology. I will be happy to see this patient upon discharge, but as of the time of writing today, there is no evidence of ocular involvement. MMODL / IJN: [id number] /
[2018-06-30] MEDS ORDERED: ENOXAPARIN 40 MG/0.4 ML SYRINGE SQ SCH (16:30)
[2018-06-30] MEDS ORDERED: NON-FORMULARY DRUG (Glucerna Shake 1 CAN) PO SCH (17:00)
[2018-06-30 17:02] LABS: Glucose,Whole Blood 113 mg/dL (75-99)
[2018-06-30 18:30] LABS: Appearance,Urine Cloudy (Clear); Bacteria,Urine Rare /hpf; Bilirubin,Urine Negative (Negative); Blood,Urine Moderate (Negative); Color,Urine Yellow; Glucose,Urine (UA) Negative (Negative); Ketones,Urine Negative (Negative); Leukocyte Esterase,Urine Large (Negative); Mucus,Urine Rare /hpf; Nitrite,Urine Positive (Negative); Protein,Urine 1+ (Negative); RBC,Urine 44 /hpf (0-5); Specific Gravity,Urine 1.031 (1.001-1.035); Urobilinogen,Urine <2.0 mg/dL (<2.0); WBC,Urine >182 /hpf (0-5)
--- NOTE | 2018-06-30 18:30 | HP ---
HISTORY AND PHYSICAL DATE OF ADMISSION: 06/30/2018 DATE OF SERVICE: 06/30/2018 PRESENTING COMPLAINT: Swelling of the right eye. HISTORY OF PRESENTING COMPLAINT: This is a pleasant 72-year-old patient of Dr. Mendes. Chronic stable medical conditions include COPD, diabetes, GERD, hyperlipidemia, hypertension, coronary artery disease hypothyroid. For 3 days the patient was noticing some swelling outside the right eye. No change in vision; just slight injection. There was no fever or chills. Some discomfort is present. The patient is admitted, started on IV antibiotics for the same. Dr. Aviles from Ophthalmology was consulted. I saw this patient this afternoon. REVIEW OF SYSTEMS: CONSTITUTIONAL: None. HEENT: As above. RESPIRATORY: None. CARDIOVASCULAR: None. GASTROINTESTINAL: None. GENITOURINARY: None. MUSCULOSKELETAL: Some pain in the joints. DERMATOLOGICAL: None. HEMATOLOGICAL: None. LYMPHATICS: None. PSYCHIATRY: None. NEUROLOGICAL: None. PAST MEDICAL HISTORY: 1. COPD. 2. Diabetes. 3. GERD. 4. Hyperlipidemia. 5. Hypertension. 6. Myocardial infarction. 7. Osteoarthritis. 8. Hypothyroid. 9. Macular degeneration. 10.Forgetful. 11.Colonic diverticulosis. 12.Carotid stenosis. 13.Anemia, being worked up by Dr. Shelby. 14.Hiatal hernia. 15.Neuropathy of the hands and feet. PAST SURGICAL HISTORY: 1. Bilateral aortogram with bilateral stents. 2. Left shoulder with hardware. 3. Fasciotomy of the right calf. SOCIAL HISTORY: The patient did smoke in the past, stopped in the . 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 Patient is a resident of [facility]. FAMILY HISTORY: Coronary artery disease, diabetes, myocardial infarction. HOME MEDICATIONS: 1. Lasix 40 mg b.i.d. p.r.n. 2. Lactulose 10 grams p.o. b.i.d. p.r.n. 3. Celexa 20 mg p.o. daily. 4. Ativan 0.5 mg p.o. t.i.d. p.r.n. 5. Humalog per scale. 6. Dulcolax 10 mg rectally daily p.r.n. 7. Glucerna 1 can p.o. t.i.d. 8. Glucophage 500 mg p.o. b.i.d. 9. Prilosec 20 mg p.o. b.i.d. 10.Lopressor 25 mg b.i.d. 11.Neurontin 200 mg b.i.d. 12.Flomax 0.8 mg p.o. daily. 13.Potassium 10 mEq p.o. daily. 14.Advair 100/50 one puff b.i.d. 15.Plavix 75 mg a day. 16.Megace 400 mg a day. 17.Fosinopril 10 mg at bedtime. 18.Iron 325 p.o. daily. 19.Aricept 10 mg p.o. at bedtime. 20.Aspirin 81 mg p.o. at bedtime. ALLERGIES: NONE. PHYSICAL EXAMINATION: VITAL SIGNS ON PRESENTATION: Temperature 100.6, pulse 75, respiration 18, blood pressure 110/56, pulse ox 95% on room air. GENERAL APPEARANCE: Average build. Lying in bed. Awake. EYES: There is swelling around the right eye with the palpebral fissure closed. Mild tenderness. Conjunctivae slightly injected on the right side. Cornea appears to be normal. HEENT: External appearance of nose and ears normal. Oral cavity normal. NECK: JVD not raised. Mass not palpable. RESPIRATORY: Effort normal. LUNGS: Decreased breath sounds. CARDIOVASCULAR: First and second sounds normal. No edema. ABDOMEN: Soft, non-tender. Liver and spleen not palpable. LYMPHATIC: No lymph node palpable in neck or axillae. PSYCHIATRY: Patient is able to answer simple questions. NEUROLOGICAL: Pupils equal. No facial asymmetry. Power and sensation grossly intact. INVESTIGATIONS: White count 5.7, hemoglobin 9.1, MCV 101.3, potassium 4.5, BUN 27, creatinine 0.78. ASSESSMENT: 1. Acute periorbital swelling with mild discomfort, probably cellulitis of the right eye, cornea not being affected. The patient has minimal symptoms, though patient did have a fever, though no white count on presentation. 2. Chronic obstructive pulmonary disease in an ex-smoker. 3. Diabetes mellitus, type 2, on oral hypoglycemic. 4. Gastroesophageal reflux disease. 5. Hyperlipidemia. 6. Essential hypertension. 7. Coronary artery disease with prior history of myocardial infarction. 8. Primary osteoarthritis. 9. Mild to moderate cognitive impairment from late-onset Alzheimer's dementia. 10.Macular degeneration. 11.Chronic gait dysfunction. Uses a walker. 12.Colonic diverticulosis. 13.Macrocytic anemia, cause undetermined, being followed by Dr. Shelby. 14.Peripheral neuropathy secondary to diabetes in both hands and feet. PLAN: Patient is started on IV Levaquin and Zosyn in the ER. We will keep the patient on IV Zosyn, discontinue the Levaquin. There is no drainage. Also use warm compress. Patient was seen by Dr. Aviles from Ophthalmology, who said to continue with antibiotics. No family member is present right now. MMODL / IJN: [id number] /
[2018-06-30 20:36] LABS: Glucose,Whole Blood 203 mg/dL (75-99)
--- NOTE | 2018-06-30 21:48 | CT ---
EXAMINATION TYPE: CT angio chest DATE OF EXAM: 06/30/2018 9:28 PM COMPARISON: 01/07/2018 HISTORY: Low pulse ox with chest pressure. CT DLP: 294.5 mGycm Automated exposure control for dose reduction was used. CONTRAST: CTA scan of the thorax is performed with IV Contrast, patient injected with 100 mL of Isovue 370, pul monary embolism protocol. There are 3-D post processed images.. FINDINGS: There is patchy pulmonary emphysema. There is subsegmental atelectasis at the posterior lung bases. T here is small right pleural effusion. Heart size is normal. Thoracic aorta is atheromatous. There is no evidence of aneurysm or dissection. I see no filling defe cts in the pulmonary arteries. There is no mediastinal adenopathy. There are no hilar masses. There i s cortical cyst posterior right kidney. There is spurring in the thoracic spine. I see no focal bone destruction. There is bridging anterior osteophyte consistent with ankylosing spondylitis. IMPRESSION: NO EVIDENCE OF PULMONARY EMBOLISM. INTERSTITIAL PULMONARY DENSITY CONSISTENT WITH FIBROSIS AND INTERS TITIAL PNEUMONIA. LUNGS APPEAR IMPROVED COMPARED TO OLD CT SCAN.
[2018-06-30] MEDS: DONEPEZIL 10 MG TAB PO SCH (22:02)
[2018-06-30] MEDS: LISINOPRIL 10 MG TAB PO SCH (22:03)
[2018-06-30] MEDS: ASPIRIN 81 MG PO SCH (22:03)
[2018-06-30] MEDS: ENOXAPARIN 40 MG/0.4 ML SYRINGE SQ SCH (22:04)
[2018-07-01] MEDS ORDERED: LEVOFLOXACIN 750MG-D5W PMX 750 MG in DEXTROSE/WATER 1 150ML.BAG IVPB SCH (03:52)
[2018-07-01 07:50] LABS: Glucose,Whole Blood 96 mg/dL (75-99)
[2018-07-01] MEDS: METOPROLOL TARTRATE 25 MG TAB PO SCH ×2 (08:02→20:55)
[2018-07-01] MEDS: GABAPENTIN 100 MG CAP PO SCH ×2 (08:02→20:55)
[2018-07-01] MEDS: CLOPIDOGREL 75 MG TAB PO SCH (08:02)
[2018-07-01] MEDS: PANTOPRAZOLE 40 MG TABLET PO SCH (08:02)
[2018-07-01] MEDS: FERROUS SULFATE 325 MG TAB PO SCH (08:02)
[2018-07-01] MEDS: CITALOPRAM HYDROBROMIDE 20 MG TAB PO SCH (08:02)
[2018-07-01] MEDS: MEGESTROL 400 MG/10 ML CUP PO SCH (08:02)
[2018-07-01] MEDS: metFORMIN 500 MG TAB PO SCH ×2 (08:02→20:55)
[2018-07-01] MEDS: POTASSIUM CHLORIDE ER 10 MEQ TAB.ER.PRT PO SCH (08:02)
[2018-07-01] MEDS: PIPERACILLIN-TAZOBACTAM 3.375 GM in DEXTROSE/WATER 1 50ML.BAG IVPB SCH ×2 (08:03→16:52)
[2018-07-01] MEDS: SODIUM CHLORIDE 0.9% 1,000 ML IV SCH ×2 (08:03→20:54)
[2018-07-01] MEDS: TAMSULOSIN 0.4 MG CAP.ER.24H PO SCH (08:03)
[2018-07-01 10:24] LABS: Basophils % (A) 0 %; Eosinophils # (A) 0.7 k/uL (0-0.7); Eosinophils % (A) 10 %; HCT 31.4 % (39.0-53.0); HGB 9.8 gm/dL (13.0-17.5); Hypochromasia Slight; Lymphocytes # (A) 0.5 k/uL (1.0-4.8); Lymphocytes % (A) 7 %; MCH 32.9 pg (25.0-35.0); MCHC 31.4 g/dL (31.0-37.0); MCV 104.8 fL (80.0-100.0); Macrocytosis Slight; Mean Platelet Volume 7.4; Monocytes # (A) 0.2 k/uL (0-1.0); Monocytes % (A) 3 %; Neutrophils # (A) 5.6 k/uL (1.3-7.7); Neutrophils % (A) 79 %; Platelet Count 337 k/uL (150-450); RBC 2.99 m/uL (4.30-5.90); RDW 13.3 % (11.5-15.5); WBC 7.1 k/uL (3.8-10.6)
[2018-07-01 12:05] LABS: Glucose,Whole Blood 96 mg/dL (75-99)
[2018-07-01 12:14] LABS: Poikilocytosis (M) Present
[2018-07-01 17:17] LABS: Glucose,Whole Blood 121 mg/dL (75-99)
[2018-07-01] MEDS: ASPIRIN 81 MG PO SCH (20:55)
[2018-07-01] MEDS: DONEPEZIL 10 MG TAB PO SCH (20:55)
[2018-07-01] MEDS: LISINOPRIL 10 MG TAB PO SCH (20:55)
[2018-07-01 21:23] LABS: Glucose,Whole Blood 135 mg/dL (75-99)
[2018-07-01] MEDS: ENOXAPARIN 40 MG/0.4 ML SYRINGE SQ SCH (21:29)
--- NOTE | 2018-07-02 | PN ---
PROGRESS NOTE DATE OF SERVICE: 07/01/2018 PRESENTING COMPLAINT: Swelling around the right eye. INTERVAL HISTORY: This patient presented with right periorbital cellulitis, on IV antibiotics. Pain and swelling are coming down. Also warm compress was ordered. Patient is tolerating a diet. REVIEW OF SYSTEMS: Done for constitutional, cardiovascular, GI, pulmonary; relevant findings as above. CURRENT MEDICATIONS: Reviewed. They include IV Zosyn. PHYSICAL EXAMINATION: Temperature 99.1, pulse 50, respiration 16, blood pressure 87/53, pulse ox 97% on room air. GENERAL APPEARANCE: Lying in bed, awake. Decreased pain and swelling and redness around the right eye. Conjunctiva less injected. HEENT: External appearance of nose and ears normal. Oral cavity normal. NECK: JVD not raised. Mass not palpable. RESPIRATORY: Effort normal. LUNGS: Decreased breath sounds. CARDIOVASCULAR: First and second sounds normal. No edema. ABDOMEN: Soft, non-tender. Liver and spleen not palpable. PSYCHIATRY: Able to answer simple questions. INVESTIGATIONS: White count 7.1, hemoglobin 9.8. ASSESSMENT: 1. Acute right periorbital cellulitis not affecting the eye, with clinical improvement. 2. Chronic obstructive pulmonary disease in an ex-smoker. 3. Diabetes mellitus, type 2, on oral hypoglycemic. 4. Gastroesophageal reflux disease. 5. Hyperlipidemia. 6. Essential hypertension. 7. Coronary artery disease with prior history of myocardial infarction. 8. Primary osteoarthritis. 9. Mild to moderate cognitive impairment from late-onset Alzheimer's dementia. 10.Macular degeneration. 11.Chronic gait dysfunction. Uses a walker. 12.Colonic diverticulosis. 13.Macrocytic anemia, cause indeterminate, being followed by Dr. Shelby. 14.Peripheral neuropathy secondary to diabetes in both hands and feet. PLAN: Patient is doing well. Keep the patient on IV Zosyn for another 24 hours. Spoke to the aide to resume the warm compresses. Hopefully looking for discharge tomorrow. Additionally, patient had an episode of shortness of breath last night. They did a chest CT and it was negative for PE. MMODL / IJN: [id number] /
[2018-07-02] MEDS: PIPERACILLIN-TAZOBACTAM 3.375 GM in DEXTROSE/WATER 1 50ML.BAG IVPB SCH ×2 (00:30→08:23)
[2018-07-02] MEDS: SYMBICORT 80-4.5 MCG INHALER INHALATION SCH ×2 (00:30→00:31)
[2018-07-02] MEDS: SODIUM CHLORIDE 0.9% 1,000 ML IV SCH (05:40)
[2018-07-02 07:32] LABS: Glucose,Whole Blood 87 mg/dL (75-99)
[2018-07-02] MEDS: CITALOPRAM HYDROBROMIDE 20 MG TAB PO SCH (08:15)
[2018-07-02] MEDS: GABAPENTIN 100 MG CAP PO SCH (08:16)
[2018-07-02] MEDS: FERROUS SULFATE 325 MG TAB PO SCH (08:16)
[2018-07-02] MEDS: CLOPIDOGREL 75 MG TAB PO SCH (08:16)
[2018-07-02] MEDS: metFORMIN 500 MG TAB PO SCH (08:17)
[2018-07-02] MEDS: METOPROLOL TARTRATE 25 MG TAB PO SCH (08:17)
[2018-07-02] MEDS: MEGESTROL 400 MG/10 ML CUP PO SCH (08:17)
[2018-07-02] MEDS: PANTOPRAZOLE 40 MG TABLET PO SCH (08:17)
[2018-07-02] MEDS: POTASSIUM CHLORIDE ER 10 MEQ TAB.ER.PRT PO SCH (08:18)
[2018-07-02] MEDS: TAMSULOSIN 0.4 MG CAP.ER.24H PO SCH (08:18)
[2018-07-02] MEDS ORDERED: LEVOFLOXACIN 750 MG TAB PO SCH (09:00)
[2018-07-02 12:35] LABS: Glucose,Whole Blood 90 mg/dL (75-99)
--- NOTE | 2018-07-02 14:41 | CDI ---
Last Revision, August 2017 Documentation Clarification Form Date: 07/02/2018 2:12:46 PM From: Nelia Pinto RN, CCDS Admit Date: 06/30/2018 3:49:00 AM Patient Name: Cirilo Leung Visit Number: [id number] Discharge Date: ATTENTION: The Clinical Documentation Specialists (CDI) and [facility] Coding Staff appreciate your assistance in clarifying documentation. Please respond to the clarification below the line at the bottom and electronically sign. The CDI & [facility] Coding staff will review the response and follow-up if needed. Please note: Queries are made part of the Legal Health Record. If you have any questions, please contact the author of this message via ITS. Filiberto Grover MD Pneumonia was documented in the Emergency Department assessment. History/Risk Factors: DM type 2, GERD, Hypertension, CAD, COPD, Alzheimer's dementia Clinical Indicators: On presentation patient's adds that he was starting to have some upper respiratory symptoms yesterday, including rhinorrhea, congestion and a cough, in addition to the periorbital swelling. Vital signs on admission: 110/56 75 18 100.6 WBC/Left shift: 5.7, Chest x-ray: Appear to show pneumonia (per Dr. Curry) Lung/Breathing assessment: Normal lungs sounds bilaterally Treatment: Monitor O2 Sat's Levaquin IV/PO Pneumonia Protocol Zosyn IV IV Fluids In order to capture the severity of condition, please clarify if the condition signifies and you are treating for: Pneumonia ruled in (specify type if known) Pneumonia ruled out Healthcare Acquired Pneumonia/Pneumonia, unspecified Other, please specify Unable to determine Please continue to document in your progress notes and discharge summary in order to capture severity of illness and risk of mortality. Include clinical findings that support your diagnosis. _ no pneumonia. MTDD
[2018-07-02 15:20] VITALS: BP 101/65; PULSE 61; RESP 20; TEMP 98.1
--- NOTE | 2018-07-02 15:32 | DS ---
DISCHARGE SUMMARY DATE OF ADMISSION: 06/30/2018 DATE OF DISCHARGE: 07/02/2018 FINAL DIAGNOSES: 1. Acute right periorbital cellulitis, not affecting the eye. 2. Chronic obstructive pulmonary disease in an ex-smoker. 3. Diabetes mellitus type 2 on oral hypoglycemic. 4. Gastroesophageal reflux disease. 5. Hyperlipidemia. 6. Essential hypertension. 7. Coronary artery disease with prior history of myocardial infarction. 8. Primary osteoarthritis. 9. Mild to moderate cognitive impairment from late onset Alzheimer's dementia. 10.Macular degeneration. 11.Chronic gait dysfunction, uses a walker. 12.Colonic diverticulosis. 13.Macrocytic anemia cause indeterminate, being followed by Dr. Shelby. 14.Peripheral neuropathy secondary to diabetes in both hands and feet. 15.Urine outflow obstruction, patient has a [place] catheter for the same, being followed by Dr. Milner. CONSULTATION: Dr. Aviles from Ophthalmologic. HOSPITAL COURSE: This patient presented with acute right periorbital cellulitis with pain, swelling, tenderness. Patient seen Dr. Aviles from Ophthalmologic, no involvement of the eye. Patient's pain, redness, swelling greatly improved. PHYSICAL EXAMINATION: Temperature 99.1, pulse 72, respiratory 18, blood pressure 105/63. Minimal pain and minimal swelling around the right periorbital. LUNGS: Decreased breath sounds. CARDIOVASCULAR: First and second sounds are normal. Patient has no clinical evidence of any pneumonia. Patient is going to long-term care at the inpatient rehab. DISCHARGE MEDICATIONS: 1. Plavix 75 mg a day. 2. Prilosec 20 mg b.i.d. 3. Aspirin 81 mg q.h.s. 4. Iron 325 p.o. daily. 5. Lisinopril 10 mg p.o. q.h.s. 6. Glucerna shake 1 can p.o. t.i.d. 7. Lopressor 25 mg p.o. b.i.d. 8. Potassium 10 mEq p.o. daily. 9. Celexa 20 mg p.o. daily. 10.Advair 100/50 one puff b.i.d. 11.Dulcolax 10 mg rectal daily p.r.n. 12.Aricept 10 mg p.o. q.h.s. 13.Neurontin 200 mg p.o. b.i.d. 14.Flomax 0.8 mg p.o. daily. 15.Lasix 40 mg b.i.d. p.r.n. 16.Humalog protocol subcu a.c. and at bedtime. 17.Lactulose 10 g p.o. b.i.d. p.r.n. 18.Glucophage 100 mg p.o. b.i.d. 19.Augmentin 875 one tablet p.o. q.12, fourteen tablets. 20.Ativan 0.5 mg p.o. t.i.d. p.r.n. 21.Megace 400 mg p.o. daily. DISPOSITION: Devin. FOLLOWUP: Follow up with Dr. Mendes p.r.n.. [facility] Follow up with Dr. Milner in 1 week. MMCHARL / ARLYNN: [id number] /
--- NOTE | 2018-07-02 18:33 | P.GSCN ---
History of Present Illness Consult date: 07/02/18 History of present illness: The patient is a 72-year-old male who was admitted through the emergency room on 06/30 for evaluation of redness and swelling surrounding the right eye. He was initially started on Zosyn and then switched to Levaquin. Ophthalmology consultation was obtained and it was felt that there was no involvement of the eye and that the swelling was related to cellulitis. The patient has improved and it is planned that he will be discharged today. He had undergone TURP on due to urinary retention and was scheduled to see Dr. Milner in the office earlier this week For removal of his Galicia catheter but could not keep his appointment due to his eye swelling. Dr. Milner was asked to see the patient while he was in the hospital and I'm seeing him in his absence. The patient has had relatively clear urine since the TURP. His path report showed BPH. The remainder of the patient's history is unchanged from that noted by Dr. Milner 2 weeks ago. Review of Systems - Constitutional Reports as per HPI Past Medical History Past Medical History: Asthma, COPD, Diabetes Mellitus, Eye Disorder, GERD/Reflux , Hyperlipidemia, Hypertension, Myocardial Infarction (NE), Osteoarthritis (OA) , Pneumonia, Thyroid Disorder, Vascular Disorder Additional Past Medical History / Comment(s): PT HAS LOST 75 POUNDS IN PAST 6 MONTHS WITH UNKNOWN CAUSE. per - pt's general overall health /abilty has been deteriorating last few weeks. getting very foregetfull,weak, falls.MACULAR DEGENERATION lt eye, PVD. hx heart murmur,diverticulosis, carotid stenosis, anemia-sees dr Shelby. hiatal hernia.neuropathy hands/feet. Last Myocardial Infarction Date:: 1996? History of Any Multi-Drug Resistant Organisms: ESBL Year Discovered:: 05/10/18 MDRO Source:: ESBL URINE, Past Surgical History: Orthopedic Surgery, Prostate Surgery (TURP 06/17/2017) Additional Past Surgical History / Comment(s): ANA AORTAGRAM WITH ANA STENTS. , LEFT SHOULDER WITH HARDWARE ( HARDWARE REMOVED) , LEFT KNEE ligament repair. colonocopy , FASCIOTOMY OF RIGHT CALF, egd w/bx., Past Anesthesia/Blood Transfusion Reactions: No Reported Reaction Past Psychological History: No Psychological Hx Reported Additional Psychological History / Comment(s): . 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 CURRENTLY IN [employer] Past Drug Use History: None Reported - Past Family History Sister(s) Family Medical History: Cancer Additional Family Medical History / Comment(s): Lung Cancer Mother Family Medical History: No Reported History Additional Family Medical History / Comment(s): from "natural causes" Father Family Medical History: Coronary Artery Disease (CAD), Diabetes Mellitus, Myocardial Infarction (NE) Medications and Allergies Home Medications Medication Instructions Recorded Confirmed Type Clopidogrel [Plavix] 75 mg PO DAILY 06/22/15 06/29/18 History Omeprazole [PriLOSEC] 20 mg PO BID 12/18/17 06/29/18 History Aspirin EC [Ecotrin Low Dose] 81 mg PO HS 01/29/18 06/29/18 History Ferrous Sulfate [Iron (65 MG 325 mg PO DAILY 02/15/18 06/29/18 History Elemental)] Fosinopril Sodium 10 mg PO HS 02/15/18 06/29/18 History Glucerna Shake 1 can PO TID@0800,1200,1700 02/15/18 06/29/18 History Metoprolol Tartrate [Lopressor] 25 mg PO BID 02/15/18 06/29/18 History Potassium Chloride [Klor-Con 10] 10 meq PO DAILY 02/26/18 06/29/18 History Citalopram Hydrobromide [CeleXA] 20 mg PO DAILY 04/14/18 06/29/18 History Fluticasone/Salmeterol [Advair 1 puff INHALATION RT-BID 04/14/18 06/29/18 History 100-50 Diskus] Bisacodyl [Dulcolax] 10 mg RECTAL DAILY PRN 06/16/18 06/29/18 History Donepezil HCl [Aricept] 10 mg PO HS 06/16/18 06/29/18 History Gabapentin [Neurontin] 200 mg PO BID 06/16/18 06/29/18 History Tamsulosin HCl [Flomax] 0.8 mg PO DAILY 06/16/18 06/29/18 History Furosemide [Lasix] 40 mg PO BID PRN 06/29/18 06/29/18 History INSULIN LISPRO (HumaLOG) [humaLOG] See Protocol SQ ACHS 06/29/18 06/29/18 History Lactulose 10 gm PO BID PRN 06/29/18 06/29/18 History metFORMIN HCL [Glucophage] 500 mg PO BID 06/29/18 06/29/18 History Amoxicillin/Potassium Clav 1 tab PO Q12HR #14 tab 07/02/18 Rx [Augmentin 875-125 Tablet] LORazepam [Ativan] 0.5 mg PO TID PRN #10 tab 07/02/18 Rx Megestrol [Megace] 400 mg PO DAILY #3 cup 07/02/18 Rx Allergies Allergy/AdvReac Type Severity Reaction Status Date / Time No Known Allergies Allergy Verified 06/29/18 22:13 Surgical - Exam Vital Signs Temp Pulse Resp BP Pulse Ox 100.6 F H 75 18 110/56 95 06/29/18 21:58 06/29/18 21:58 06/29/18 21:58 06/29/18 21:58 06/29/18 21:58 - General well developed, no distress - ENT other (There is swelling surrounding the right eye which makes it difficult for the patient to open his eye lid) Results - Labs 07/01/18 09:05 06/29/18 22:10 Abnormal Lab Results - Last 24 Hours (Table) 07/01/18 Range/Units 21:07 POC Glucose (mg/dL) 135 H (75-99) mg/dL Microbiology - Last 24 Hours (Table) 06/29/18 18:00 Urine Culture - Final Urine,Catheterized 06/29/18 23:29 Blood Culture - Preliminary Blood No Growth after 48 hours 06/29/18 22:10 Blood Culture - Preliminary Blood No Growth after 48 hours Assessment and Plan (1) Urinary retention due to benign prostatic hyperplasia Narrative/Plan: The patient's catheter will be removed and he will be given a voiding trial while he is in the hospital. If he is unable to void or if his postvoid residual is excessive he will be discharged with a catheter in place. He should set up an appointment with for follow-up sometime next week. Status: Acute Code(s): N40.1 - BENIGN PROSTATIC HYPERPLASIA WITH LOWER URINARY TRACT SYMP; R33.8 - OTHER RETENTION OF URINE SNOMED Code(s): 901262109
== END 2018-07-02 16:08 | DRG 602 ==
LOC: EC 21:57 → 4MS4W 06-30 03:49
PROVIDERS: ADMIT Hospitalist; ATTEND Hospitalist
DX: L03.213 Periorbital cellulitis (principal); J18.9 Pneumonia, unspecified organism; J44.0 Chronic obstructive pulmonary disease with (acute) lower respiratory infection; D53.9 Nutritional anemia, unspecified; E03.9 Hypothyroidism, unspecified; E11.42 Type 2 diabetes mellitus with diabetic polyneuropathy; E11.51 Type 2 diabetes mellitus with diabetic peripheral angiopathy without gangrene; E78.5 Hyperlipidemia, unspecified; F02.80 Dementia in other diseases classified elsewhere, unspecified severity, without behavioral disturbance, psychotic disturbance, mood disturbance, and anxiety; G30.1 Alzheimer's disease with late onset; H05.20 Unspecified exophthalmos; H35.30 Unspecified macular degeneration; I10 Essential (primary) hypertension; I25.10 Atherosclerotic heart disease of native coronary artery without angina pectoris; I25.2 Old myocardial infarction; K21.9 Gastro-esophageal reflux disease without esophagitis; K57.30 Diverticulosis of large intestine without perforation or abscess without bleeding; M19.91 Primary osteoarthritis, unspecified site; N40.1 Benign prostatic hyperplasia with lower urinary tract symptoms; R33.8 Other retention of urine; I65.29 Occlusion and stenosis of unspecified carotid artery; K44.9 Diaphragmatic hernia without obstruction or gangrene; R01.1 Cardiac murmur, unspecified; R26.9 Unspecified abnormalities of gait and mobility; Z79.02 Long term (current) use of antithrombotics/antiplatelets; Z79.899 Other long term (current) drug therapy; Z79.82 Long term (current) use of aspirin; Z79.4 Long term (current) use of insulin; Z87.891 Personal history of nicotine dependence; Z87.01 Personal history of pneumonia (recurrent); Z80.1 Family history of malignant neoplasm of trachea, bronchus and lung; Z82.49 Family history of ischemic heart disease and other diseases of the circulatory system; Z83.3 Family history of diabetes mellitus
CPT/HCPCS: 36415; 70481; 71045; 71275; 80053; 81001; 83605; 85025; 85610; 85730; 87040; 87086; 93005; 96365; 96367; 99285

== ENCOUNTER 2018-07-06 10:28 | Inpatient (IN) | payer MEDICARE, BC, OTHER ==
[2018-07-06] MEDS ORDERED: PIPERACILLIN-TAZOBACTAM 3.375 GM in DEXTROSE/WATER 1 50ML.BAG IVPB STA (10:55)
--- NOTE | 2018-07-06 11:26 | ED ---
Eye Problem HPI - General Chief complaint: Eye Problems Stated complaint: eye infection Time Seen by Provider: 07/06/18 10:35 Source: patient, RN notes reviewed Mode of arrival: wheelchair Limitations: no limitations - History of Present Illness Initial comments: 72-year-old male presents emergency Department with chief complaint of right eye swelling. Patient states that he was recently in the hospital for preseptal cellulitis and was on antibiotics. He was discharged a few days ago back tomorrow would. Patient followed up with Dr. Thomas licensed psychiatric technician today who evaluated his eye and symptoms emergency department for admission and IV antibiotics. He states there is mild discomfort but states it's not worse on spend. Patient has had several bouts of periorbital cellulitis. He reports no fever, chills, headache, dizziness, neck pain or neck stiffness. - Related Data Home Medications Medication Instructions Recorded Confirmed Clopidogrel [Plavix] 75 mg PO DAILY@169906/22/15 07/06/18 Omeprazole [PriLOSEC] 20 mg PO BID@0600,169912/18/17 07/06/18 Aspirin EC [Ecotrin Low Dose] 81 mg PO DAILY@209901/29/18 07/06/18 Ferrous Sulfate [Iron (65 MG 325 mg PO DAILY@169902/15/18 07/06/18 Elemental)] Fosinopril Sodium 10 mg PO HS@209902/15/18 07/06/18 Glucerna Shake 1 can PO TID@0800,1200,0 02/15/18 07/06/18 Metoprolol Tartrate [Lopressor] 25 mg PO BID@0800,209902/15/18 07/06/18 Potassium Chloride [Klor-Con 10] 10 meq PO DAILY@0 02/26/18 07/06/18 Fluticasone/Salmeterol [Advair 1 puff INHALATION RT-BID 04/14/18 07/06/18 100-50 Diskus] Bisacodyl [Dulcolax] 10 mg RECTAL DAILY PRN 06/16/18 07/06/18 Gabapentin [Neurontin] 200 mg PO BID@0800,1700 06/16/18 07/06/18 Tamsulosin HCl [Flomax] 0.8 mg PO DAILY@1200 06/16/18 07/06/18 Furosemide [Lasix] 40 mg PO BID PRN 06/29/18 07/06/18 INSULIN LISPRO (HumaLOG) [humaLOG] See Protocol SQ ACHS 06/29/18 07/06/18 Lactulose 10 gm PO BID PRN 06/29/18 07/06/18 metFORMIN HCL [Glucophage] 500 mg PO BID@0800,1700 06/29/18 07/06/18 Bisacodyl [Dulcolax] 10 mg RECTAL DAILY PRN 07/06/18 07/06/18 Citalopram Hydrobromide [CeleXA] 20 mg PO DAILY@0800 07/06/18 07/06/18 Donepezil [Aricept] 10 mg PO DAILY@2100 07/06/18 07/06/18 LORazepam [Ativan] 0.5 mg PO Q8H PRN 07/06/18 07/06/18 Magic Cup 1 dose PO DAILY@1200 07/06/18 07/06/18 Magnesium Hydroxide [Milk of 2,400 mg PO DAILY PRN 07/06/18 07/06/18 Magnesia] Na Phos,M-B/Na Phos,Di-Ba [Fleet 133 ml RECTAL DAILY PRN 07/06/18 07/06/18 Adult] Previous Rx's Medication Instructions Recorded Amoxicillin/Potassium Clav 1 tab PO Q12HR #14 tab 07/02/18 [Augmentin 875-125 Tablet] Megestrol [Megace] 400 mg PO DAILY #3 cup 07/02/18 Allergies Allergy/AdvReac Type Severity Reaction Status Date / Time No Known Allergies Allergy Verified 07/06/18 11:29 Review of Systems ROS Statement: Those systems with pertinent positive or pertinent negative responses have been documented in the HPI. ROS Other: All systems not noted in ROS Statement are negative. Past Medical History Past Medical History: Asthma, COPD, Diabetes Mellitus, Eye Disorder, GERD/Reflux , Hyperlipidemia, Hypertension, Myocardial Infarction ([place]), Osteoarthritis (OA) , Pneumonia, Thyroid Disorder, Vascular Disorder Additional Past Medical History / Comment(s): PT HAS LOST 75 POUNDS IN PAST 6 MONTHS WITH UNKNOWN CAUSE. per - pt's general overall health /abilty has been deteriorating last few weeks. getting very foregetfull,weak, falls.MACULAR DEGENERATION lt eye, PVD. hx heart murmur,diverticulosis, carotid stenosis, anemia-sees dr Shelby. hiatal hernia.neuropathy hands/feet. Last Myocardial Infarction Date:: 1996? History of Any Multi-Drug Resistant Organisms: ESBL Date of last positivie culture/infection: 05/10/18 MDRO Source:: ESBL URINE, Past Surgical History: Orthopedic Surgery, Prostate Surgery Additional Past Surgical History / Comment(s): ANA AORTAGRAM WITH ANA STENTS. , LEFT SHOULDER WITH HARDWARE ( HARDWARE REMOVED) , LEFT KNEE ligament repair. colonocopy , FASCIOTOMY OF RIGHT CALF, egd w/bx., Past Anesthesia/Blood Transfusion Reactions: No Reported Reaction Past Psychological History: No Psychological Hx Reported Smoking Status: Former smoker Past Alcohol Use History: None Reported Past Drug Use History: None Reported - Past Family History Sister(s) Family Medical History: Cancer Additional Family Medical History / Comment(s): Lung Cancer Mother Family Medical History: No Reported History Additional Family Medical History / Comment(s): from "natural causes" Father Family Medical History: Coronary Artery Disease (CAD), Diabetes Mellitus, Myocardial Infarction (NH) General Exam Limitations: no limitations General appearance: alert, in no apparent distress Head exam: Present: atraumatic, normocephalic, normal inspection Eye exam: Present: PERRL, conjunctival injection (chemosis), periorbital swelling (Moderate right with mild erythema and mild tenderness), periorbital tenderness. Absent: normal appearance (chemotic), EOMI (decrease left), scleral icterus ENT exam: Present: normal exam, normal oropharynx, mucous membranes moist Neck exam: Present: normal inspection, full ROM. Absent: tenderness, meningismus, lymphadenopathy Respiratory exam: Present: normal lung sounds bilaterally. Absent: respiratory distress, wheezes, rales, rhonchi, stridor Cardiovascular Exam: Present: regular rate, normal rhythm, normal heart sounds. Absent: systolic murmur, diastolic murmur, rubs, gallop, clicks Course Vital Signs 07/06/18 10:39 Temperature 98.4 F Pulse Rate 72 Respiratory 18 Rate Blood Pressure 117/56 O2 Sat by Pulse 97 Oximetry Medical Decision Making - Medical Decision Making 72-year-old male presented emergency department for right eye infection. Patient has had repeat recent preseptal cellulitis and will be admitted at this time for orbital cellulitis. There is inflammatory changes to the musculature and concern for infectious versus inflammatory process. Patient also will have MRI to rule out cavernous sinus thrombosis. Patient was started on Zosyn and Vanco. - Lab Data Result diagrams: 07/06/18 11:25 07/06/18 11:25 Lab Results 07/06/18 07/06/18 07/06/18 Range/Units 11:25 11:25 11:25 WBC 10.2 (3.8-10.6) k/uL RBC 2.98 L (4.30-5.90) m/uL Hgb 10.0 L (13.0-17.5) gm/dL Hct 29.8 L (39.0-53.0) % MCV 100.1 H (80.0-100.0) fL MCH 33.5 (25.0-35.0) pg MCHC 33.5 (31.0-37.0) g/dL RDW 13.6 (11.5-15.5) % Plt Count 334 (150-450) k/uL Neutrophils % 77 % Lymphocytes % 13 % Monocytes % 3 % Eosinophils % 7 % Basophils % 0 % Neutrophils # 7.8 H (1.3-7.7) k/uL Lymphocytes # 1.4 (1.0-4.8) k/uL Monocytes # 0.3 (0-1.0) k/uL Eosinophils # 0.7 (0-0.7) k/uL Basophils # 0.0 (0-0.2) k/uL PT (9.0-12.0) sec INR (<1.2) APTT (22.0-30.0) sec Sodium 138 (137-145) mmol/L Potassium 4.3 (3.5-5.1) mmol/L Chloride 106 (98-107) mmol/L Carbon Dioxide 21 L (22-30) mmol/L Anion Gap 11 mmol/L BUN 26 H (9-20) mg/dL Creatinine 0.76 (0.66-1.25) mg/dL Est GFR (CKD-EPI)AfAm >90 (>60 ml/min/1.73 sqM) Est GFR (CKD-EPI)NonAf >90 (>60 ml/min/1.73 sqM) Glucose 135 H (74-99) mg/dL Plasma Lactic Acid Kemal 2.7 H* (0.7-2.0) mmol/L Calcium 9.5 (8.4-10.2) mg/dL Total Bilirubin 0.2 (0.2-1.3) mg/dL AST 10 L (17-59) U/L ALT 13 L (21-72) U/L Alkaline Phosphatase 37 L (38-126) U/L Total Protein 6.5 (6.3-8.2) g/dL Albumin 3.1 L (3.5-5.0) g/dL 07/06/18 Range/Units 11:25 WBC (3.8-10.6) k/uL RBC (4.30-5.90) m/uL Hgb (13.0-17.5) gm/dL Hct (39.0-53.0) % MCV (80.0-100.0) fL MCH (25.0-35.0) pg MCHC (31.0-37.0) g/dL RDW (11.5-15.5) % Plt Count (150-450) k/uL Neutrophils % % Lymphocytes % % Monocytes % % Eosinophils % % Basophils % % Neutrophils # (1.3-7.7) k/uL Lymphocytes # (1.0-4.8) k/uL Monocytes # (0-1.0) k/uL Eosinophils # (0-0.7) k/uL Basophils # (0-0.2) k/uL PT 10.1 (9.0-12.0) sec INR 1.0 (<1.2) APTT 25.0 (22.0-30.0) sec Sodium (137-145) mmol/L Potassium (3.5-5.1) mmol/L Chloride (98-107) mmol/L Carbon Dioxide (22-30) mmol/L Anion Gap mmol/L BUN (9-20) mg/dL Creatinine (0.66-1.25) mg/dL Est GFR (CKD-EPI)AfAm (>60 ml/min/1.73 sqM) Est GFR (CKD-EPI)NonAf (>60 ml/min/1.73 sqM) Glucose (74-99) mg/dL Plasma Lactic Acid Kemal (0.7-2.0) mmol/L Calcium (8.4-10.2) mg/dL Total Bilirubin (0.2-1.3) mg/dL AST (17-59) U/L ALT (21-72) U/L Alkaline Phosphatase (38-126) U/L Total Protein (6.3-8.2) g/dL Albumin (3.5-5.0) g/dL Disposition Clinical Impression: Orbital cellulitis on right Disposition: ADMITTED IP TO THIS HOSP Condition: Fair Referrals: Richardson Mendes MD [Primary Care Provider] - 1-2 days
[2018-07-06] MEDS ORDERED: VANCOMYCIN 1,250 MG in SODIUM CHLORIDE 0.9% 250 ML IVPB STA (11:34)
[2018-07-06 12:00] LABS: ALT 13 U/L (21-72); AST 10 U/L (17-59); Albumin 3.1 g/dL (3.5-5.0); Alkaline Phosphatase 37 U/L (38-126); Anion Gap 11 mmol/L; Blood Urea Nitrogen 26 mg/dL (9-20); Calcium 9.5 mg/dL (8.4-10.2); Carbon Dioxide 21 mmol/L (22-30); Chloride 106 mmol/L (98-107); Glucose 135 mg/dL (74-99); Potassium 4.3 mmol/L (3.5-5.1); Sodium 138 mmol/L (137-145); Total Bilirubin 0.2 mg/dL (0.2-1.3); Total Protein 6.5 g/dL (6.3-8.2)
[2018-07-06 12:04] LABS: Basophils % (A) 0 %; Eosinophils # (A) 0.7 k/uL (0-0.7); Eosinophils % (A) 7 %; HCT 29.8 % (39.0-53.0); Lymphocytes # (A) 1.4 k/uL (1.0-4.8); Lymphocytes % (A) 13 %; MCH 33.5 pg (25.0-35.0); MCHC 33.5 g/dL (31.0-37.0); MCV 100.1 fL (80.0-100.0); Mean Platelet Volume 7.2; Monocytes # (A) 0.3 k/uL (0-1.0); Monocytes % (A) 3 %; Neutrophils # (A) 7.8 k/uL (1.3-7.7); Neutrophils % (A) 77 %; Platelet Count 334 k/uL (150-450); RBC 2.98 m/uL (4.30-5.90); RDW 13.6 % (11.5-15.5); WBC 10.2 k/uL (3.8-10.6)
[2018-07-06 12:10] LABS: Prothrombin Time 10.1 sec (9.0-12.0)
[2018-07-06] MEDS ORDERED: SODIUM CHLORIDE 0.9% 1,000 ML IV ONE (12:45)
--- NOTE | 2018-07-06 13:09 | CT ---
EXAMINATION TYPE: CT orbits w con DATE OF EXAM: 07/06/2018 COMPARISON: 06/30/2018 HISTORY: Right eye redness and swelling CT DLP: 336 mGycm Automated exposure control for dose reduction was used. CONTRAST: Performed with IV Contrast, patient injected with 100 mL of Isovue 300. FINDINGS: The orbital margins are intact. There is right-sided exophthalmos. There is mild preseptal soft tissu e swelling around the right orbit. There is soft tissue swelling on the right side of the nasal bone. There are changes of chronic sinusitis. There is no bony destructive process. There is no retro-orbit al mass. There is thickening of the medial rectus muscle and to a lesser extent inferior rectus and superior o blique muscle which is new from the prior exam. Superior ophthalmic vein appears to be symmetric in s ize. Ill-defined attenuation surrounding the optic nerve also now noted. Impression: 1. There persists preseptal soft tissue edema and right-sided exophthalmus. There is interval develo pment of marked thickening of the medial rectus muscle and to a lesser extent the inferior rectus and superior oblique muscle. There does appear to be mild ill-defined attenuation within the intraconal portion of the right orbit including surrounding the optic nerve. Inflammatory and infectious etiolog y should be considered. Cavernous sinus is not well imaged or opacified on today's exam. Case discuss ed with the ER clinician. Recommend follow-up MRI of the orbits assessment of bilateral orbits and ca vernous sinus.
[2018-07-06] MEDS ORDERED: ACETAMINOPHEN TAB 325 MG TAB PO PRN (13:16)
[2018-07-06] MEDS ORDERED: BISACODYL 10 MG SUPP RECTAL PRN ×2 (15:20)
[2018-07-06] MEDS ORDERED: MAGNESIUM HYDROXIDE 2,400 MG/10 ML CUP PO PRN (15:20)
[2018-07-06] MEDS ORDERED: LORazepam 0.5 MG TAB PO PRN (15:20)
[2018-07-06] MEDS ORDERED: LACTULOSE 20 GM/30 ML CUP PO PRN (15:20)
[2018-07-06] MEDS ORDERED: NA PHOS,M-B/NA PHOS,DI-BA 133 ML ENEMA RECTAL PRN (15:20)
[2018-07-06] MEDS: PANTOPRAZOLE 40 MG TABLET PO SCH (16:24)
[2018-07-06] MEDS: POTASSIUM CHLORIDE ER 10 MEQ TAB.ER.PRT PO SCH (16:24)
[2018-07-06] MEDS: GABAPENTIN 100 MG CAP PO SCH (16:24)
[2018-07-06] MEDS: CLOPIDOGREL 75 MG TAB PO SCH (16:24)
[2018-07-06] MEDS: metFORMIN 500 MG TAB PO SCH (16:24)
[2018-07-06] MEDS: FERROUS SULFATE 325 MG TAB PO SCH (16:24)
[2018-07-06] MEDS ORDERED: NON-FORMULARY DRUG (Glucerna Shake 1 CAN) PO SCH (17:00)
[2018-07-06] MEDS ORDERED: ONDANSETRON 4 MG/2 ML VIAL IVP PRN (19:08)
[2018-07-06] MEDS ORDERED: MELATONIN 3 MG TABLET PO PRN (19:08)
[2018-07-06] MEDS: SYMBICORT 80-4.5 MCG INHALER INHALATION SCH (20:31)
[2018-07-06] MEDS: DONEPEZIL 10 MG TAB PO SCH (20:44)
[2018-07-06] MEDS: METOPROLOL TARTRATE 25 MG TAB PO SCH (20:45)
[2018-07-06] MEDS: ASPIRIN 81 MG PO SCH (20:45)
[2018-07-06] MEDS: LISINOPRIL 10 MG TAB PO SCH (20:45)
--- NOTE | 2018-07-06 20:54 | HP ---
HISTORY AND PHYSICAL DATE OF ADMISSION: 07/06/2018 DATE OF SERVICE: 07/06/2018 PRESENTING COMPLAINT: Swelling around the right eye. HISTORY OF PRESENTING COMPLAINT: This is a pleasant 72-year-old patient of Dr. Mendes. Chronic stable medical conditions include COPD, diabetes, GERD, hyperlipidemia, hypertension, coronary artery disease, hypothyroid. The patient was in the hospital recently from 06/30/2018 and was discharged on 07/02/2018. Patient then was found to have right periorbital cellulitis, treated with antibiotics. Patient was seen by Dr. Aviles from Ophthalmology. There was very slight injection of the right eye but no involvement really of the right eye, and the patient's pain and swelling had greatly improved by the time of discharge. For the last 2 to 3 days, patient's noticed that patient was having increasing swelling, redness around the right eye. The patient was taken to Dr. Thomas. The patient was found to have some involvement of the right eyeball and therefore sent down to the ER. Patient did have a CT scan of the orbit that showed some exophthalmos involvement of the rectus muscles. Hence patient was readmitted for IV antibiotics. Patient has minimal pain or tenderness and no fever. Eyes are swollen and right eye is somewhat shut. is present at the bedside. REVIEW OF SYSTEMS: CONSTITUTIONAL: None. HEENT: As above. RESPIRATORY: None. CARDIOVASCULAR: None. GASTROINTESTINAL: None. GENITOURINARY: Has a Galicia catheter. MUSCULOSKELETAL: Pain in the joints. DERMATOLOGICAL: As above. LYMPHATICS: None. PSYCHIATRY: None. NEUROLOGICAL: None. PAST MEDICAL HISTORY: 1. COPD. 2. Diabetes. 3. GERD. 4. Hyperlipidemia. 5. Hypertension. 6. Myocardial infarction. 7. Osteoarthritis. 8. Hypothyroid. 9. Macular degeneration. 10.Colonic diverticulosis. 11.Carotid stenosis. 12.Anemia, being worked up by Dr. Shelby. 13.Hiatal hernia. 14.Neuropathy of the hands and feet. PAST SURGICAL HISTORY: 1. Bilateral aortogram with bilateral stents. 2. Left shoulder with hardware. 3. Fasciotomy of the right calf. SOCIAL HISTORY: Patient did smoke in the past; stopped in the . 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 Resident of [facility]. . FAMILY HISTORY: Coronary artery disease, diabetes, myocardial infarction. HOME MEDICATIONS: 1. Glucophage 500 mg p.o. b.i.d. 2. Flomax 0.8 mg p.o. daily. 3. Potassium 10 mEq daily. 4. Prilosec 20 mg p.o. b.i.d. 5. Adult Fleet 133 mL rectally daily p.r.n. 6. Lopressor 25 mg p.o. b.i.d. 7. Megace 400 mg p.o. daily. 8. Milk of magnesia 2400 mg p.o. daily p.r.n. 9. Magic Cup 1 dose p.o. daily. 10.Lactulose 10 grams p.o. b.i.d. p.r.n. 11.Ativan 0.5 p.o. q.8 p.r.n. 12.Humalog per sliding scale. 13.Glucerna Shake 1 can p.o. t.i.d. 14.Neurontin 200 mg b.i.d. 15.Lasix 40 mg b.i.d. p.r.n. 16.Fosinopril 10 mg p.o. at bedtime. 17.Advair 100/50 one puff b.i.d. 18.Iron 325 p.o. daily. 19.Aricept 10 mg p.o. daily. 20.Plavix 75 mg p.o. daily. 21.Celexa 20 mg p.o. daily. 22.Dulcolax p.r.n. 23.Aspirin 81 mg p.o. daily. 24.Augmentin 875 one tablet p.o. q.12. ALLERGIES: NONE. PHYSICAL EXAMINATION: VITAL SIGNS ON PRESENTATION: Temperature 98.4, pulse 72, respiration 18, blood pressure 117/56, pulse ox 97% on room air. GENERAL APPEARANCE: Average build. Lying in bed. Awake. EYES: Significant swelling around the right eye with swelling of the eyelids. Conjunctiva on the right side appears a bit boggy, injected. Very slight tenderness HEENT: External appearance of nose and ears normal. Oral cavity normal. NECK: JVD unable to assess. Mass not palpable. RESPIRATORY: Effort normal. LUNGS: Decreased breath sounds. CARDIOVASCULAR: First and second sounds normal. No edema. ABDOMEN: Soft, non-tender. Liver and spleen not palpable. Galicia catheter in place. LYMPHATIC: No lymph node palpable in neck or axillae. PSYCHIATRY: Able to answer simple questions. NEUROLOGICAL: Pupils equal. Cranial nerves grossly intact. Power and sensation grossly intact. INVESTIGATIONS: White count 10.2, hemoglobin 10, potassium 4.3, BUN 26, creatinine 0.76. ASSESSMENT: 1. Acute recurrence of right periorbital cellulitis; recently had the same infection; visual acuity had improved. CT scan now showing some exophthalmos involvement of the christina rectus muscles. 2. Chronic obstructive pulmonary disease in an ex-smoker. 3. Diabetes mellitus, type 2, on oral hypoglycemic. 4. Gastroesophageal reflux disease. 5. Hyperlipidemia. 6. Essential hypertension. 7. Coronary artery disease with prior history of myocardial infarction. 8. Primary osteoarthritis. 9. Mild to moderate cognitive impairment from late-onset Alzheimer's dementia. 10.Macular degeneration. 11.Chronic gait dysfunction. Uses a walker. 12.Colonic diverticulosis. 13.Macrocytic anemia, cause indeterminate, being followed by Dr. Shelby. 14.Peripheral neuropathy secondary to diabetes in both hands and feet. 15.Urine outflow obstruction. Patient has a Galicia catheter, being followed by Dr. Milner. PLAN: Patient is currently on IV Zosyn and vancomycin. Consultation is made to [facility] and Dr. Thomas from Ophthalmology. Warm compresses will be used. Home medications otherwise are to be resumed. Care was discussed with the patient and his . Questions were answered. MMODL / IJN: [id number] /
--- NOTE | 2018-07-06 21:26 | MR ---
EXAMINATION TYPE: MR orbits wo/w con DATE OF EXAM: 07/06/2018 COMPARISON: CT orbits 07/06/2018, CT orbits 06/30/2018, MR orbits 09/05/2017 HISTORY: Rt orbital cellulitis, R/O cavernous sinus thrombosis TECHNIQUE: Multiplanar, multisequence images of the orbits is performed without and with IV contrast, utilizing 7 mL intravenous Gadavist . FINDINGS: There is motion on the exam which may limit sensitivity. Exophthalmus is noted on the right as noted on prior CT. Preseptal soft tissue swelling is present. I ntraconal fat shows increased signal on T2-weighted sequences, shows contrast enhancement following g adolinium administration. There are asymmetric vascular flow voids suspected in the medial aspect of the right orbit as compared to left, asymmetric tortuous vasculature is increased at this level as no paulette on CT. Medial rectus and superior oblique muscles show increased thickness and enhancement as com pared to the contralateral orbit. No evident cavernous sinus thrombosis, cavernous sinuses show a sym metric appearance. Mild inflammatory change is noted in the ethmoid air cells, maxillary sinuses. Opt ic nerve sheath is thought to enhance. 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 There is a partially empty sella. 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 The re is motion on the exam. Theinternal carotid artery on the left is chronically occluded.
[2018-07-07] MEDS: PIPERACILLIN-TAZOBACTAM 3.375 GM in DEXTROSE/WATER 1 50ML.BAG IVPB SCH ×3 (00:01→15:41)
--- NOTE | 2018-07-07 01:41 | CONS ---
CONSULTATION REASON FOR CONSULTATION: Right orbital cellulitis. HISTORY OF PRESENT ILLNESS: The patient is a 72-year-old male who was recently admitted at [facility] from 06/30/2018 to 07/02/2018. The patient was diagnosed with right periorbital cellulitis. Patient apparently was treated with IV antibiotic therapy and subsequently discharged home on oral Augmentin, which the patient has been taking. The patient is now coming back to the ER at [facility] with more swelling and redness of his right eyeball, which apparently has been getting worse for the last 2 to 3 days. The patient did have some mild dull aching pain into the periorbital area with intensity of about 2 to 3/10, but denies significant pain on movement of the eyeball or any significant drainage. The patient denies any high-grade fever, rigors or chills. With these symptoms, the patient has been evaluated by Dr. Thomas the senior research fellow in the outpatient setting, who directed the patient to go to the [facility] ER for admission and IV antibiotic therapy. The patient did have a CT of the head and the orbits completed, which shows persistent preseptal soft tissue edema and right-sided exophthalmos with a marked thickening of the medial rectus muscle and to a lesser extent the inferior rectus and superior oblique muscle. The patient did receive a dose of vancomycin and Zosyn in the ER. Admitted to the hospital. Infectious Disease was consulted for further recommendation regarding antibiotic therapy. As of admission, the patient has been afebrile. White count is not significantly elevated to 10.2, his lactic acid was high at 2.7 repeat is 4.8. The patient did have blood cultures on last admission which have been negative. Blood culture this admission is currently pending. REVIEW OF SYSTEMS: CONSTITUTIONAL: Positive for weakness but no high-grade fever. EYES: As per HPI. ENT: No complaint. RESPIRATORY: No complaint. CARDIOVASCULAR: No complaint. GENITOURINARY: No complaint. GASTROINTESTINAL: No complaint. MUSCULOSKELETAL: No complaint. INTEGUMENTARY: No complaint. PSYCHOLOGICAL: No complaint. NEUROLOGIC: No complaint. PAST MEDICAL HISTORY: Significant for recent admission to the hospital for preseptal cellulitis, diabetes mellitus, gastroesophageal reflux disease, COPD, asthma, hypertension, hyperlipidemia, MS, osteoarthritis, pneumonia, hypothyroidism, previous history of ESBL E coli UTI. PAST SURGICAL HISTORY: Bilateral , persistent left shoulder with hardware, left knee ligament repair, colonoscopy, shortening of right , EGD with biopsy. SOCIAL HISTORY: Remote history of smoking. No drinking or drug use. to . SOCIAL HISTORY: Sister with history of lung cancer. Mother of natural causes. ALLERGIES: No known drug allergies. MEDICATIONS: The patient is currently on Tylenol, aspirin, Dulcolax, Symbicort, Celexa, Plavix, Aricept, iron sulfate, Neurontin, lactulose, Restoril, Ativan, milk of magnesia, Megace, melatonin, Glucophage, Lopressor, Zofran, vancomycin. EXAMINATION: Blood pressure is 149/67 with a pulse of 64, temperature 97.9, he is 95% on room air. GENERAL DESCRIPTION: An elderly male lying in bed in no distress. No tachypnea or accessory muscle for respiration use. HEENT examination reveals right periorbital swelling and redness in the right eye. No purulent drainage was noticed. No abnormality on the left eye. NECK: Trachea central no thyromegaly. LUNGS: Unlabored breathing, clear to auscultation anteriorly. HEART: S1, S2. Regular rate and rhythm. ABDOMEN: Soft, no guarding or rigidity. EXTREMITIES: No edema of the feet. SKIN: No rash or mass palpable. NEUROLOGIC: The patient is awake, alert, oriented x3. Mood and affect normal. LABS: Hemoglobin is 10.8, white count 10.2 with a BUN of 26, creatinine 0.6. Lactic acid 4.8. Liver enzymes are normal. Cultures obtained which are currently pending. DIAGNOSTIC IMPRESSION AND PLAN: Patient admitted to the hospital with right periorbital/orbital cellulitis in a patient with failed outpatient oral Augmentin therapy. The patient did have underlying diabetes mellitus. We will need to cover for the resistant gram positive as well as gram-negative pathogen in view of the recent admission to this facility. The patient did have underlying risk factor of diabetes mellitus and other comorbidities. The patient did have advanced age and high risk of nephrotoxicity from vancomycin. PLAN: 1. Vancomycin pharmacy to dose, target of 15 while watching his kidney function and vancomycin trough closely. 2. Zosyn 3.375 every 8 hours. 3. Await neuro ophthalmology evaluation. 4. We will follow up on clinical condition as well as cultures to further adjust medication if needed. Thank you for this consultation. Will follow this patient along with you. MMODL / IJN: [id number] /
[2018-07-07] MEDS: VANCOMYCIN 1,250 MG in SODIUM CHLORIDE 0.9% 250 ML IVPB SCH ×2 (03:56→15:37)
[2018-07-07] MEDS: PANTOPRAZOLE 40 MG TABLET PO SCH ×2 (06:17→17:31)
[2018-07-07] MEDS: SYMBICORT 80-4.5 MCG INHALER INHALATION SCH ×2 (08:34→20:00)
[2018-07-07] MEDS: CITALOPRAM HYDROBROMIDE 20 MG TAB PO SCH (08:56)
[2018-07-07] MEDS: metFORMIN 500 MG TAB PO SCH ×2 (08:56→17:31)
[2018-07-07] MEDS: GABAPENTIN 100 MG CAP PO SCH ×2 (08:56→17:31)
[2018-07-07] MEDS: METOPROLOL TARTRATE 25 MG TAB PO SCH ×2 (08:56→20:58)
[2018-07-07] MEDS: MEGESTROL 400 MG/10 ML CUP PO SCH (08:56)
[2018-07-07 09:12] LABS: Glucose,Whole Blood 100 mg/dL (75-99)
[2018-07-07 11:15] LABS: Basophils % (A) 0 %; Eosinophils # (A) 0.9 k/uL (0-0.7); Eosinophils % (A) 7 %; HCT 28.6 % (39.0-53.0); HGB 9.1 gm/dL (13.0-17.5); Lymphocytes # (A) 0.6 k/uL (1.0-4.8); Lymphocytes % (A) 5 %; MCV 103.1 fL (80.0-100.0); Macrocytosis Slight; Mean Platelet Volume 7.4; Monocytes # (A) 0.2 k/uL (0-1.0); Monocytes % (A) 1 %; Neutrophils # (A) 10.4 k/uL (1.3-7.7); Neutrophils % (A) 86 %; Platelet Count 319 k/uL (150-450); RBC 2.77 m/uL (4.30-5.90); RDW 13.6 % (11.5-15.5); WBC 12.2 k/uL (3.8-10.6)
[2018-07-07 11:27] LABS: Anion Gap 16 mmol/L; Blood Urea Nitrogen 21 mg/dL (9-20); Carbon Dioxide 14 mmol/L (22-30); Chloride 105 mmol/L (98-107); Glucose 204 mg/dL (74-99); Potassium 4.5 mmol/L (3.5-5.1); Sodium 135 mmol/L (137-145)
[2018-07-07] MEDS ORDERED: NON-FORMULARY DRUG (Magic Cup 1 DOSE) PO SCH (12:00)
[2018-07-07] MEDS: TAMSULOSIN 0.4 MG CAP.ER.24H PO SCH (13:52)
[2018-07-07] MEDS: LACTATED RINGERS 1,000 ML IV SCH (15:37)
[2018-07-07] MEDS: CLOPIDOGREL 75 MG TAB PO SCH (17:31)
[2018-07-07] MEDS: FERROUS SULFATE 325 MG TAB PO SCH (17:31)
[2018-07-07] MEDS: POTASSIUM CHLORIDE ER 10 MEQ TAB.ER.PRT PO SCH (17:31)
[2018-07-07 17:48] LABS: Glucose,Whole Blood 120 mg/dL (75-99)
--- NOTE | 2018-07-07 19:43 | PN ---
PROGRESS NOTE DATE OF SERVICE: 07/07/18. PRESENTING COMPLAINT: Swelling around the right eye. INTERVAL HISTORY: This patient presented with a relapse of right periorbital cellulitis, some involvement of the eye. The patient has been on IV Zosyn and Vanco. Pain and swelling are greatly improved today. Palpable fissure is actually opened. The patient did have an MRI that did show inflammation around the eyeball. REVIEW OF SYSTEMS: Done for constitutional, cardiovascular, GI, pulmonary; relevant findings as above. CURRENT MEDICATIONS: Reviewed that include IV Zosyn and vancomycin. EXAMINATION: Afebrile, pulse 72, respiratory 18, blood pressure 87/47, pulse ox 91 percent on room air. GENERAL APPEARANCE: Lying in bed, awake. EYES: Decreased swelling around the right. Eye is more open. Conjunctiva was less boggy. HEENT: External appearance of nose and ears normal. Oral cavity normal. NECK: JVD unable to assess. Mass not palpable. RESPIRATORY: Effort normal. Lungs, decreased breath sounds. CARDIOVASCULAR: First and second sounds, no edema. ABDOMEN: Soft, nontender. Liver and spleen not palpable. PSYCHIATRY: Answering questions. INVESTIGATIONS: Accu-Cheks 120. MRI of the orbit shows inflammation of the christina orbital muscles and chronically occluded internal carotid artery on the left. ASSESSMENT: 1. Acute periorbital cellulitis, recurrent of the right eye with involvement of the christina rectus muscles with clinical response. 2. Chronic obstructive pulmonary disease in an ex-smoker. 3. Diabetes mellitus type 2 on oral hypoglycemic. 4. Gastroesophageal reflux disease. 5. Hyperlipidemia. 6. Essential hypertension. 7. Coronary artery disease, prior history of myocardial infarction. 8. Primary osteoarthritis. 9. Mild to moderate cognitive impairment from late onset Alzheimer's dementia. 10.Macular degeneration. 11.Chronic gait dysfunction uses a walker. 12.Colonic diverticulosis. 13.Macrocytic anemia cause indeterminate being followed by Dr. Shelby. 14.Peripheral neuropathy secondary to diabetes with both hands and feet. 15.Urine outflow obstruction. Patient has a Galicia catheter being followed by Dr. Milner. 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 PLAN: IV fluids was added. Continue current medication and treatment plan. Care was discussed with Dr. Patterson Infectious Disease. MMODL / IJN: [id number] /
[2018-07-07] MEDS: DONEPEZIL 10 MG TAB PO SCH (20:58)
[2018-07-07] MEDS: ASPIRIN 81 MG PO SCH (20:58)
[2018-07-07] MEDS: LISINOPRIL 10 MG TAB PO SCH (20:58)
--- NOTE | 2018-07-07 22:34 | PN ---
PROGRESS NOTE DATE OF SERVICE: 07/07/2018. REASON FOR FOLLOWUP: Right orbital cellulitis. INTERVAL HISTORY: The patient is currently afebrile. His right periorbital pain, swelling, and redness has improved compared to yesterday. He is able to open his eyes. Denies any pain on movement of the eyebrow or any purulent drainage. Denies having any chest pain, shortness of breath or cough. No abdominal pain or any diarrhea. EXAMINATION: Blood pressure 108/50 with a pulse of 72, temperature 97.7. He is 91% on room air. GENERAL DESCRIPTION: An elderly male lying in bed in no distress. RESPIRATORY SYSTEM: Unlabored breathing. Clear to auscultation anteriorly. HEART: S1, S2. Regular rhythm. No tenderness. EXTREMITIES: No edema of the feet. SKIN: Right periorbital swelling has slightly decreased, no drainage. LABS: Hemoglobin 9.1, white count 12.2. Lactic acid slightly elevated at 3.5 with a BUN of 21 creatinine 0.79. Blood culture has been negative so far. DIAGNOSTIC IMPRESSION AND PLAN: Patient with right periorbital and orbital cellulitis. The patient seemed to have shown clinical improvement to vancomycin. Zosyn will be continued in view of failure of the oral Augmentin. The patient will benefit from antibiotic therapy with close outpatient followup. Continue supportive care. MMODL / IJN: [id number] /
[2018-07-08] MEDS: PIPERACILLIN-TAZOBACTAM 3.375 GM in DEXTROSE/WATER 1 50ML.BAG IVPB SCH ×4 (00:08→23:59)
[2018-07-08] MEDS: VANCOMYCIN 1,250 MG in SODIUM CHLORIDE 0.9% 250 ML IVPB SCH ×2 (03:41→14:39)
[2018-07-08] MEDS: PANTOPRAZOLE 40 MG TABLET PO SCH ×2 (06:32→20:23)
[2018-07-08] MEDS: LACTATED RINGERS 1,000 ML IV SCH ×2 (06:33→18:49)
[2018-07-08] MEDS: SYMBICORT 80-4.5 MCG INHALER INHALATION SCH ×2 (07:22→20:59)
[2018-07-08 08:26] LABS: Glucose,Whole Blood 118 mg/dL (75-99)
[2018-07-08] MEDS: METOPROLOL TARTRATE 25 MG TAB PO SCH ×2 (08:31→20:24)
[2018-07-08] MEDS: GABAPENTIN 100 MG CAP PO SCH ×2 (08:32→18:49)
[2018-07-08] MEDS: MEGESTROL 400 MG/10 ML CUP PO SCH (08:32)
[2018-07-08] MEDS: CITALOPRAM HYDROBROMIDE 20 MG TAB PO SCH (08:33)
[2018-07-08] MEDS: metFORMIN 500 MG TAB PO SCH ×2 (08:33→18:50)
[2018-07-08 09:10] LABS: Anion Gap 8 mmol/L; Blood Urea Nitrogen 22 mg/dL (9-20); Calcium 9.2 mg/dL (8.4-10.2); Carbon Dioxide 20 mmol/L (22-30); Chloride 107 mmol/L (98-107); Glucose 98 mg/dL (74-99); Potassium 4.4 mmol/L (3.5-5.1); Sodium 135 mmol/L (137-145)
[2018-07-08 09:34] LABS: Basophils % (A) 0 %; Eosinophils # (A) 0.7 k/uL (0-0.7); Eosinophils % (A) 8 %; HCT 26.4 % (39.0-53.0); HGB 8.8 gm/dL (13.0-17.5); Lymphocytes # (A) 0.7 k/uL (1.0-4.8); Lymphocytes % (A) 8 %; MCH 33.3 pg (25.0-35.0); MCHC 33.5 g/dL (31.0-37.0); MCV 99.5 fL (80.0-100.0); Mean Platelet Volume 7.5; Monocytes # (A) 0.2 k/uL (0-1.0); Monocytes % (A) 2 %; Neutrophils # (A) 7.3 k/uL (1.3-7.7); Neutrophils % (A) 81 %; Platelet Count 294 k/uL (150-450); RBC 2.65 m/uL (4.30-5.90); RDW 13.3 % (11.5-15.5); WBC 9.1 k/uL (3.8-10.6)
[2018-07-08] MEDS: TAMSULOSIN 0.4 MG CAP.ER.24H PO SCH (12:09)
[2018-07-08] MEDS ORDERED: VANCOMYCIN TROUGH DUE 1 EACH MISC MISCELLANE ONE (13:00)
[2018-07-08] MEDS: CLOPIDOGREL 75 MG TAB PO SCH (13:59)
[2018-07-08 14:13] VITALS: BMI 24.3
[2018-07-08 17:48] LABS: Glucose,Whole Blood 156 mg/dL (75-99)
--- NOTE | 2018-07-08 18:05 | PN ---
PROGRESS NOTE DATE OF SERVICE: 07/08/2018. REASON FOR FOLLOWUP: Right periorbital and orbital cellulitis. INTERVAL HISTORY: The patient is currently afebrile. He is breathing comfortably. The right periorbital swelling has improved. Denies significant chest pain. Occasional cough. No abdominal pain. No diarrhea. EXAMINATION: Blood pressure is 102/63, with a pulse of 51, temperature 98.9. General description is an elderly male lying in bed in no distress. HEENT examination: Right periorbital swelling has slightly decreased. Able to open his eyes. LUNGS: Unlabored breathing, decreased breath sounds at the bases. No wheeze. Heart S1, S2. Regular rate and rhythm. Abdomen soft. No tenderness. LABS: Hemoglobin 8.8, white count 9.1. BUN of 22, creatinine 0.82. Blood culture has been negative so far. DIAGNOSTIC IMPRESSION AND PLAN: Patient with right periorbital and orbital cellulitis failing outpatient oral Augmentin therapy with concern for possible resistant gram-positive or gram-negative pathogen. Patient seemed to have shown clinical improvement on vancomycin and Zosyn that will be continued in view of the unavailability of any culture data, we will not be able to narrow down his antibiotic. We will get a PICC line with consideration for 2 weeks of IV Zosyn and vancomycin. Close outpatient followup. PICC line has been requested for tomorrow. Continue supportive care. MMODL / IJN: [id number] /
[2018-07-08] MEDS: FERROUS SULFATE 325 MG TAB PO SCH (18:49)
[2018-07-08] MEDS: POTASSIUM CHLORIDE ER 10 MEQ TAB.ER.PRT PO SCH (18:49)
[2018-07-08] MEDS: ASPIRIN 81 MG PO SCH (20:23)
[2018-07-08] MEDS: LISINOPRIL 10 MG TAB PO SCH (20:23)
[2018-07-08] MEDS: DONEPEZIL 10 MG TAB PO SCH (20:23)
[2018-07-09 00:03] VITALS: RESP 20
--- NOTE | 2018-07-09 01:56 | PN ---
PROGRESS NOTE DATE OF SERVICE: 07/08/2018. PRESENTING COMPLAINT: Swelling around the right eye. INTERVAL HISTORY: This patient presented with a relapse of right periorbital cellulitis. Much improved now. The pain and swelling have seemingly gone down. Remains on IV vancomycin and Zosyn. Did tolerate some diet. Did get IV fluids. Having retained urine, may have to place a Galicia back. Overall feels better. REVIEW OF SYSTEMS: Done for constitutional, cardiovascular, GI, pulmonary; relevant findings as above. CURRENT MEDICATIONS: Reviewed, that include IV vancomycin and Zosyn. EXAMINATION: Afebrile, pulse 75, respirations 18, blood pressure 115/61, pulse ox 88 percent on 2 liters. GENERAL APPEARANCE: Lying in bed, awake. EYES: Decreased swelling around the right eye. Redness has gone down even further. Eyes are open. HEENT: External appearance of ears and nose normal. NECK: JVD unable to assess. Mass not palpable. Respiratory effort normal. LUNGS: Decreased breath sounds. CARDIOVASCULAR: 1st and 2nd sounds normal. No edema. ABDOMEN: Soft, nontender. Liver and spleen not palpable. PSYCHIATRY: Answering questions appropriately. INVESTIGATIONS: White count 9.1, hemoglobin 8.8, potassium 4.4. ASSESSMENT: 1. Acute periorbital cellulitis, recurrent on the right eye, with involvement of the christina rectus muscle, with good clinical response. 2. Chronic obstructive pulmonary disease in an ex-smoker. 3. Diabetes mellitus type 2 on oral hypoglycemic. 4. Hyperlipidemia. 5. Essential hypertension. 6. Coronary artery disease, prior history of myocardial infarction. 7. Primary osteoarthritis. 8. Mild to moderate cognitive impairment from late onset Alzheimer's dementia. 9. Macular degeneration. 10.Chronic gait dysfunction, uses a walker. 11.Colonic diverticulosis. 12.Microcytic anemia, cause indeterminate, being followed by Dr. Shelby, insole beveler. 13.Peripheral neuropathy secondary to diabetes, both hands and feet. 14.Urine outflow obstruction. The patient had a Galicia catheter removed. Again, having bladder urinary retention. Galicia catheter may need to be placed. Followup with Dr. Milner. 15.Chronically occluded internal carotid artery per MRI. PLAN: Discussed with Dr. Patterson. The patient will get a PICC line tomorrow. Hopefully can be discharged back to the ECF with another 10 to 14 days of IV antibiotics. MMODL / IJN: [id number] /
[2018-07-09] MEDS: VANCOMYCIN 1,250 MG in SODIUM CHLORIDE 0.9% 250 ML IVPB SCH ×2 (02:03→14:42)
[2018-07-09] MEDS: PANTOPRAZOLE 40 MG TABLET PO SCH (06:17)
[2018-07-09 07:06] LABS: Glucose,Whole Blood 100 mg/dL (75-99)
[2018-07-09 07:12] VITALS: BP 121/64; PULSE 77; TEMP 98.9
[2018-07-09] MEDS: SYMBICORT 80-4.5 MCG INHALER INHALATION SCH (09:00)
[2018-07-09] MEDS: PIPERACILLIN-TAZOBACTAM 3.375 GM in DEXTROSE/WATER 1 50ML.BAG IVPB SCH (09:19)
[2018-07-09] MEDS: CITALOPRAM HYDROBROMIDE 20 MG TAB PO SCH (09:23)
[2018-07-09] MEDS: GABAPENTIN 100 MG CAP PO SCH (09:23)
[2018-07-09] MEDS: LACTATED RINGERS 1,000 ML IV SCH (09:23)
[2018-07-09] MEDS: MEGESTROL 400 MG/10 ML CUP PO SCH (09:23)
[2018-07-09] MEDS: metFORMIN 500 MG TAB PO SCH (09:24)
[2018-07-09] MEDS: METOPROLOL TARTRATE 25 MG TAB PO SCH (09:24)
[2018-07-09] MEDS: FERROUS SULFATE 325 MG TAB PO SCH (09:24)
[2018-07-09] MEDS: POTASSIUM CHLORIDE ER 10 MEQ TAB.ER.PRT PO SCH (09:24)
[2018-07-09] MEDS: TAMSULOSIN 0.4 MG CAP.ER.24H PO SCH (09:25)
[2018-07-09] MEDS ORDERED: LIDOCAINE 2% INJ 20 MG/ML SQ ONE (10:20)
[2018-07-09 10:31] LABS: Anion Gap 9 mmol/L; Blood Urea Nitrogen 19 mg/dL (9-20); Calcium 8.8 mg/dL (8.4-10.2); Carbon Dioxide 20 mmol/L (22-30); Chloride 107 mmol/L (98-107); Glucose 93 mg/dL (74-99); Potassium 4.2 mmol/L (3.5-5.1); Sodium 136 mmol/L (137-145)
--- NOTE | 2018-07-09 11:15 | IR ---
PICC LINE PLACEMENT: HISTORY: Infection requiring long-term antibiotic therapy PROCEDURE: Ultrasound and fluoroscopic guidance of PICC line placement. COMPLICATIONS: None ANESTHESIA: 1. 1% Lidocaine locally. FINDINGS/TECHNIQUE: The procedure was explained to the patient. The risks, complications, benefits and alternatives were discussed and any questions were answered. Informed consent was obtained. The patient was placed supine on the fluoroscopic table and prepped and draped in the usual sterile fash ion. Utilizing a 21 gauge needle and sonographic and fluoroscopic guidance, access in the left ceph alic vein was achieved and there is placement of a 0.018 guidewire. The vein is patent. A 4-F sheat h was placed over the guidewire. The guidewire and dilator were removed and a 4-F. PICC line was gunnar maryana through the sheath with the tip at the level of the SVC. The sheath was removed, the catheter wa s flushed and sutured into position. The patient was stable throughout the procedure and remained st able upon discharge from the Department of Radiology. The vein puncture was patent under ultrasound. A keane scale image was obtained to document patency of the vein punctured. All elements of the maximal barrier technique were utilized. FLUOROSCOPY TIME: 0.6 minutes, one image submitted IMPRESSION: Successful PICC line placement under ultrasound and fluoroscopic guidance.
--- NOTE | 2018-07-09 13:30 | DS ---
DISCHARGE SUMMARY DATE OF ADMISSION: 07/06/2018 DATE OF DISCHARGE: 07/09/2018 FINAL DIAGNOSES: 1. Acute periorbital cellulitis with relapse on the right eye with involvement of the christina rectus muscle with very good clinical response. 2. Chronic obstructive pulmonary disease in an ex-smoker. 3. Diabetes mellitus type 2 on oral hypoglycemic. 4. Hyperlipidemia. 5. Essential hypertension. 6. Coronary artery disease with prior history myocardial infarction. 7. Primary osteoarthritis. 8. Mild to moderate cognitive impairment from late onset Alzheimer's dementia. 9. Macular degeneration. 10.Chronic gait dysfunction, uses a walker. 11.Colonic diverticulosis. 12. anemia, cause indeterminate, being followed by Dr. Shelby, community director. 13.Peripheral neuropathy secondary to diabetes, both hands and feet. 14.Urine outflow obstruction patient has a Galicia catheter being followed by Dr. Milner. 15.Chronically occluded internal carotid artery per MRI. HOSPITAL COURSE: This pleasant gentleman who was just discharged from the hospital with right periorbital cellulitis on 07/02/2018 was doing really well. Readmitted with flare up of the right periorbital cellulitis. Outpatient was seen by Dr. Thomas. CT scan and MRI did show involvement of the christina rectus muscle, but eye was doing well. The patient was put on IV vancomycin and IV Zosyn to which he responded well by the time of discharge. Eye was nearly back to its normal self. On examination, temperature 98.9, pulse 77, respiration 20, blood pressure 121/64, pulse ox 93% on 2 L. Right eye greatly improved, minimal tenderness, redness. LUNGS: Decreased breath sounds, Patient able to answer questions. INVESTIGATIONS: White count 9.1, hemoglobin 8.8. Potassium 4.2. BUN and creatinine is normal. CONSULTATION: Dr. Patterson from Infectious Disease. DISCHARGE MEDICATIONS: 1. Plavix 75 mg a day. 2. Prilosec 20 mg p.o. b.i.d. 3. Aspirin 81 mg a day. 4. Iron 325 p.o. daily. 5. Fosinopril sodium 10 mg p.o. q.h.s. 6. Glucerna shake 1 can p.o. t.i.d. 7. Lopressor 25 mg b.i.d. 8. Potassium 10 mEq p.o. daily. 9. Advair 100/50 one puff b.i.d. 10.Dulcolax 10 mg rectal daily p.r.n. 11.Neurontin 200 mg p.o. b.i.d. 12.Flomax 0.8 mg p.o. daily at noon. 13.Humalog per protocol. 14.Lactulose 10 grams p.o. b.i.d. p.r.n. 15.Glucophage 500 mg p.o. b.i.d. 16.Dulcolax 10 mg rectal daily. 17.Celexa 20 mg p.o. daily. 18.Aricept 10 mg p.o. daily. 19.Magic Cup 1 dose p.o. daily. 20.Milk of magnesia 2400 mg daily p.r.n. 21.Fleet Adult 133 mL rectal daily p.r.n. 22.Ativan 0.5 p.o. q.8 p.r.n. for anxiety. 23.Megace 400 mg p.o. daily. 24.Zosyn 4.5 grams IV piggyback q.8, forty-two bags. 25.Vancomycin 1250 mg IV piggyback q.12, twenty-eight bags. DISPOSITION: [facility]. Follow up Dr. Mendes at [facility]. Follow up with Dr. Patterson in 1 week. Follow up with Dr. Thomas in 1 week. LABS: CBC, BMP weekly with results to Dr. Patterson. MMODL / IJN: [id number] /
--- NOTE | 2018-07-09 18:54 | PN ---
PROGRESS NOTE DATE OF SERVICE: 07/09/2018 REASON FOR FOLLOWUP: Right orbital cellulitis. INTERVAL HISTORY: The patient was seen on rounds early this afternoon. The patient has been afebrile, has been breathing comfortably. The right periorbital swelling and redness has decreased. Swelling was noticed to the left eyeball. Denies having any chest pain, shortness of breath or cough. No abdominal pain or any diarrhea. PHYSICAL EXAMINATION: Blood pressure 121/64 with a pulse of 77, temperature 98.9. He is 93% on room air. General description is an elderly male lying in bed in no distress. RESPIRATORY SYSTEM: Unlabored breathing. Clear to auscultation anteriorly. HEART: S1, S2. Regular rate and rhythm. ABDOMEN: Soft. No tenderness. Right periorbital swelling and redness has improved. LABS: Creatinine 0.80. DIAGNOSTIC IMPRESSION AND PLAN: Patient with right periorbital cellulitis with a component of orbital cellulitis failing outpatient Augmentin therapy. He did get a PICC line. That is to continue with IV vancomycin, Pharmacy to dose, target of 15, along with Zosyn for 2 weeks to finish a course of therapy with close outpatient followup. Continue with supportive care. MMODL / IJN: [id number] /
== END 2018-07-09 14:20 | DRG 121 ==
LOC: EC 10:28 → 4MS4W 13:17
PROVIDERS: ADMIT Hospitalist; ATTEND Hospitalist
PROC: 02HV33Z Insertion of Infusion Device into Superior Vena Cava, Percutaneous Approach (ICD-10-PCS; principal; 2018-07-09 10:10)
DX: H05.011 Cellulitis of right orbit (principal); L03.213 Periorbital cellulitis; J44.9 Chronic obstructive pulmonary disease, unspecified; E11.42 Type 2 diabetes mellitus with diabetic polyneuropathy; E11.51 Type 2 diabetes mellitus with diabetic peripheral angiopathy without gangrene; H05.20 Unspecified exophthalmos; I65.22 Occlusion and stenosis of left carotid artery; D50.9 Iron deficiency anemia, unspecified; F02.80 Dementia in other diseases classified elsewhere, unspecified severity, without behavioral disturbance, psychotic disturbance, mood disturbance, and anxiety; G30.1 Alzheimer's disease with late onset; N13.9 Obstructive and reflux uropathy, unspecified; E03.9 Hypothyroidism, unspecified; E78.5 Hyperlipidemia, unspecified; H35.30 Unspecified macular degeneration; I10 Essential (primary) hypertension; I25.10 Atherosclerotic heart disease of native coronary artery without angina pectoris; I25.2 Old myocardial infarction; K21.9 Gastro-esophageal reflux disease without esophagitis; K57.30 Diverticulosis of large intestine without perforation or abscess without bleeding; M19.91 Primary osteoarthritis, unspecified site; K44.9 Diaphragmatic hernia without obstruction or gangrene; R01.1 Cardiac murmur, unspecified; R26.9 Unspecified abnormalities of gait and mobility; Z79.02 Long term (current) use of antithrombotics/antiplatelets; Z79.82 Long term (current) use of aspirin; Z79.84 Long term (current) use of oral hypoglycemic drugs; Z79.899 Other long term (current) drug therapy; Z87.891 Personal history of nicotine dependence; Z87.01 Personal history of pneumonia (recurrent); Z87.440 Personal history of urinary (tract) infections; Z83.3 Family history of diabetes mellitus; Z82.49 Family history of ischemic heart disease and other diseases of the circulatory system; Z80.1 Family history of malignant neoplasm of trachea, bronchus and lung
CPT/HCPCS: 36415; 36569; 70481; 70543; 76937; 77001; 80048; 80053; 80202; 83605; 85025; 85610; 85730; 87040; 94640; 96365; 96366; 99284

== ENCOUNTER 2018-07-19 09:33 | Inpatient (IN) | payer MEDICARE, BC, OTHER ==
[2018-07-19] MEDS ORDERED: IPRATROPIUM-ALBUTEROL 3 ML NEB INHALATION STA (10:01)
--- NOTE | 2018-07-19 10:06 | ED ---
General Adult HPI - General Chief complaint: Shortness of Breath Stated complaint: Low oxygen saturation Time Seen by Provider: 07/19/18 09:50 Source: EMS, RN notes reviewed Mode of arrival: EMS Limitations: no limitations - History of Present Illness Initial comments: This is a 72-year-old male comes from a [place] [facility] with a past medical history significant for MO diabetes. hypertension COPD and stroke. patient was sent in because the oxygenation according to the staff was in the 50s. Patient denies any symptoms of shortness of breath or difficulty breathing what his pulse ox without O2 on is less than 80. Patient denies any chest pain or palpitations patient denies abdominal pain patient denies lightheadedness or dizziness patient denies headache patient denies numbness weakness. Patient denies any cough. Patient is not a good historian. Patient has no family or caregiver with him. - Related Data Home Medications Medication Instructions Recorded Confirmed Clopidogrel [Plavix] 75 mg PO DAILY@0 06/22/15 07/19/18 Omeprazole [PriLOSEC] 20 mg PO BID@0600,0 12/18/17 07/19/18 Aspirin EC [Ecotrin Low Dose] 81 mg PO HS@209901/29/18 07/19/18 Ferrous Sulfate [Iron (65 MG 325 mg PO DAILY@169902/15/18 07/19/18 Elemental)] Fosinopril Sodium 10 mg PO HS@209902/15/18 07/19/18 Glucerna Shake 120 ml PO TID@0800,1400,199902/15/18 07/19/18 Metoprolol Tartrate [Lopressor] 25 mg PO BID@0800,209902/15/18 07/19/18 Potassium Chloride [Klor-Con 10] 10 meq PO DAILY@0 02/26/18 07/19/18 Fluticasone/Salmeterol [Advair 1 puff INHALATION RT-BID 04/14/18 07/19/18 100-50 Diskus] Bisacodyl [Dulcolax] 10 mg RECTAL DAILY PRN 06/16/18 07/19/18 Gabapentin [Neurontin] 200 mg PO BID@0800,1700 06/16/18 07/19/18 Tamsulosin HCl [Flomax] 0.8 mg PO DAILY@1200 06/16/18 07/19/18 INSULIN LISPRO (HumaLOG) [humaLOG] See Protocol SQ ACHS 06/29/18 07/19/18 Lactulose 10 gm PO BID PRN 06/29/18 07/19/18 metFORMIN HCL [Glucophage] 500 mg PO BID@0800,1700 06/29/18 07/19/18 Citalopram Hydrobromide [CeleXA] 20 mg PO DAILY@0800 07/06/18 07/19/18 Donepezil [Aricept] 10 mg PO DAILY@2100 07/06/18 07/19/18 Magnesium Hydroxide [Milk of 2,400 mg PO DAILY PRN 07/06/18 07/19/18 Magnesia] Na Phos,M-B/Na Phos,Di-Ba [Fleet 133 ml RECTAL DAILY PRN 07/06/18 07/19/18 Adult] Lactobacillus Acidophilus 1 tab PO DAILY@1700 07/19/18 07/19/18 [Acidophilus] Previous Rx's Medication Instructions Recorded LORazepam [Ativan] 0.5 mg PO Q8H PRN #7 tab 07/09/18 Megestrol [Megace] 400 mg PO DAILY #3 cup 07/09/18 Piperacillin Sodium/Tazobactam 4.5 gm IVPB Q8HR #42 bag 07/09/18 [Zosyn] Vancomycin 1,250 mg IVPB Q12HR #28 bag 07/09/18 Allergies Allergy/AdvReac Type Severity Reaction Status Date / Time No Known Allergies Allergy Verified 07/19/18 10:48 Review of Systems ROS Statement: Those systems with pertinent positive or pertinent negative responses have been documented in the HPI. ROS Other: All systems not noted in ROS Statement are negative. Past Medical History Past Medical History: Asthma, COPD, CVA/TIA, Dementia, Diabetes Mellitus, Eye Disorder, GERD/Reflux, Hyperlipidemia, Hypertension, Myocardial Infarction (MO) , Osteoarthritis (OA), Pneumonia, Thyroid Disorder, Vascular Disorder Additional Past Medical History / Comment(s): Several bouts periorbital cellulitis with recent admit to [facility] on 06/30/18 with this, pt and spouse state that pts general health has been declining over the past few weeks with increased forgetfulness/weakness/falls, ambulates (not often) with walker/ unexplained weight loss, macular degeneration pt states in R eye, BPH with urine outlfow obstruction-recently had TURP and hadley discontinued 2 days ago, NIDDM type II, neuropathy bilateral hands/feet, TIA, cardiac murmur, PVD, caratid disease, macrocytic anemia-followed by Dr. Shelby, hiatal hernia, diverticular disease, hypothyroid. Last Myocardial Infarction Date:: 1996 History of Any Multi-Drug Resistant Organisms: ESBL Date of last positivie culture/infection: 06/09/18 ESBL-Klebsiella MDRO Source:: Urine Past Surgical History: Orthopedic Surgery, Prostate Surgery Additional Past Surgical History / Comment(s): 06/17/18 TURP, ANA AORTAGRAM WITH ANA STENTS. , LEFT SHOULDER WITH HARDWARE ( HARDWARE REMOVED) , LEFT KNEE ligament repair. colonocopy , FASCIOTOMY OF RIGHT CALF, egd w/bx., Past Anesthesia/Blood Transfusion Reactions: No Reported Reaction Past Psychological History: No Psychological Hx Reported Smoking Status: Former smoker Past Alcohol Use History: None Reported Past Drug Use History: None Reported - Past Family History Sister(s) Family Medical History: Cancer Additional Family Medical History / Comment(s): Lung Cancer Mother Family Medical History: No Reported History Additional Family Medical History / Comment(s): from "natural causes" Father Family Medical History: Coronary Artery Disease (CAD), Diabetes Mellitus, Myocardial Infarction (MO) General Exam - General Exam Comments Initial Comments: GENERAL: Patient is well-developed and well-nourished. Patient is nontoxic and well- hydrated and is in mild distress. ENT: Neck is soft and supple. No significant lymphadenopathy is noted. Oropharynx is clear. Moist mucous membranes. Neck has full range of motion without eliciting any pain. EYES: The sclera were anicteric and conjunctiva were pink and moist. Extraocular movements were intact and pupils were equal round and reactive to light. Eyelids were unremarkable. PULMONARY: Patient is crackles in the right base CARDIOVASCULAR: There is a regular rate and rhythm without any murmurs gallops or rubs. ABDOMEN: Soft and nontender with normal bowel sounds. No palpable organomegaly was noted. There is no palpable pulsatile mass. SKIN: Skin is clear with no lesions or rashes and otherwise unremarkable. NEUROLOGIC: Patient is alert and oriented x3. Cranial nerves II through XII are grossly intact. Motor and sensory are also intact. Normal speech, volume and content. Symmetrical smile. MUSCULOSKELETAL: Normal extremities with adequate strength and full range of motion. No lower extremity swelling or edema. No calf tenderness. LYMPHATICS: No significant lymphadenopathy is noted PSYCHIATRIC: Normal psychiatric evaluation. Limitations: no limitations Course Vital Signs 07/19/18 07/19/18 07/19/18 09:51 10:00 10:20 Temperature 97.8 F Pulse Rate 85 87 Respiratory 24 Rate Blood Pressure 116/57 O2 Sat by Pulse 93 L 80 L Oximetry 07/19/18 07/19/18 10:30 10:54 Temperature Pulse Rate 85 93 Respiratory 28 H Rate Blood Pressure 99/50 O2 Sat by Pulse 96 Oximetry Medical Decision Making - Medical Decision Making EKG shows normal sinus rhythm at 92 bpm DE interval is 154 QRS is 80 QT interval 386 QTC is 477. Patient's EKG shows no ST segment elevation or depression no T-wave abnormalities are noted Chest x-ray is consistent with pulmonary edema. I spoke with the she states he has a history of congestive heart failure. I started the patient on Lasix in the emergency department. Patient would desat to 80% on room air. I spoke with Dr. Lala agreed to admit the patient admitted the patient I continue the Lasix on the floor as well as aspirin and Nitropaste. I consulted cardiology. - Lab Data Result diagrams: 07/19/18 10:15 07/19/18 10:15 Lab Results 07/19/18 07/19/18 07/19/18 Range/Units 10:15 10:15 10:15 WBC 9.2 (3.8-10.6) k/uL RBC 2.50 L (4.30-5.90) m/uL Hgb 8.5 L (13.0-17.5) gm/dL Hct 25.5 L (39.0-53.0) % MCV 101.9 H (80.0-100.0) fL MCH 34.1 (25.0-35.0) pg MCHC 33.5 (31.0-37.0) g/dL RDW 13.7 (11.5-15.5) % Plt Count 355 (150-450) k/uL Neutrophils % 83 % Lymphocytes % 9 % Monocytes % 2 % Eosinophils % 4 % Basophils % 0 % Neutrophils # 7.7 (1.3-7.7) k/uL Lymphocytes # 0.8 L (1.0-4.8) k/uL Monocytes # 0.2 (0-1.0) k/uL Eosinophils # 0.4 (0-0.7) k/uL Basophils # 0.0 (0-0.2) k/uL Hypochromasia Slight Macrocytosis Slight PT (9.0-12.0) sec INR (<1.2) APTT (22.0-30.0) sec Sodium 140 (137-145) mmol/L Potassium 4.2 (3.5-5.1) mmol/L Chloride 112 H (98-107) mmol/L Carbon Dioxide 20 L (22-30) mmol/L Anion Gap 8 mmol/L BUN 25 H (9-20) mg/dL Creatinine 1.12 (0.66-1.25) mg/dL Est GFR (CKD-EPI)AfAm 75 (>60 ml/min/1.73 sqM) Est GFR (CKD-EPI)NonAf 65 (>60 ml/min/1.73 sqM) Glucose 123 H (74-99) mg/dL Plasma Lactic Acid Kemal (0.7-2.0) mmol/L Calcium 9.5 (8.4-10.2) mg/dL Magnesium 1.9 (1.6-2.3) mg/dL Total Bilirubin 0.3 (0.2-1.3) mg/dL AST 11 L (17-59) U/L ALT 21 (21-72) U/L Alkaline Phosphatase 45 (38-126) U/L Total Creatine Kinase <20 L (55-170) U/L CK-MB (CK-2) 1.9 (0.0-2.4) ng/mL CK-MB (CK-2) Rel Index Troponin I <0.012 (0.000-0.034) ng/mL NT-Pro-B Natriuret Pep pg/mL Total Protein 5.2 L (6.3-8.2) g/dL Albumin 2.2 L (3.5-5.0) g/dL 07/19/18 07/19/18 07/19/18 Range/Units 10:15 10:15 10:15 WBC (3.8-10.6) k/uL RBC (4.30-5.90) m/uL Hgb (13.0-17.5) gm/dL Hct (39.0-53.0) % MCV (80.0-100.0) fL MCH (25.0-35.0) pg MCHC (31.0-37.0) g/dL RDW (11.5-15.5) % Plt Count (150-450) k/uL Neutrophils % % Lymphocytes % % Monocytes % % Eosinophils % % Basophils % % Neutrophils # (1.3-7.7) k/uL Lymphocytes # (1.0-4.8) k/uL Monocytes # (0-1.0) k/uL Eosinophils # (0-0.7) k/uL Basophils # (0-0.2) k/uL Hypochromasia Macrocytosis PT 11.2 (9.0-12.0) sec INR 1.2 H (<1.2) APTT 23.6 (22.0-30.0) sec Sodium (137-145) mmol/L Potassium (3.5-5.1) mmol/L Chloride (98-107) mmol/L Carbon Dioxide (22-30) mmol/L Anion Gap mmol/L BUN (9-20) mg/dL Creatinine (0.66-1.25) mg/dL Est GFR (CKD-EPI)AfAm (>60 ml/min/1.73 sqM) Est GFR (CKD-EPI)NonAf (>60 ml/min/1.73 sqM) Glucose (74-99) mg/dL Plasma Lactic Acid Kemal 1.6 (0.7-2.0) mmol/L Calcium (8.4-10.2) mg/dL Magnesium (1.6-2.3) mg/dL Total Bilirubin (0.2-1.3) mg/dL AST (17-59) U/L ALT (21-72) U/L Alkaline Phosphatase (38-126) U/L Total Creatine Kinase (55-170) U/L CK-MB (CK-2) (0.0-2.4) ng/mL CK-MB (CK-2) Rel Index Troponin I (0.000-0.034) ng/mL NT-Pro-B Natriuret Pep 1870 pg/mL Total Protein (6.3-8.2) g/dL Albumin (3.5-5.0) g/dL Critical Care Time Critical Care Time: Yes Total Critical Care Time: 35 Disposition Clinical Impression: Pulmonary edema Disposition: ADMITTED IP TO THIS HOSP Referrals: Richardson Mendes MD [Primary Care Provider] - 1-2 days Time of Disposition: 12:20
--- NOTE | 2018-07-19 10:54 | XR ---
EXAMINATION TYPE: XR chest 2V DATE OF EXAM: 07/19/2018 COMPARISON: 07-15 TECHNIQUE: PA and lateral views submitted. HISTORY: Difficulty breathing FINDINGS: Diffuse interstitial pattern with tiny bilateral effusions but no pneumothorax. Remote trauma left cl avicle. Arthropathy of the shoulders. Heart size stable. IMPRESSION: 1. Progressive changes with diffuse interstitial pattern may be on the basis of CHF, interstitial pne umonitis or atypical pneumonia. Correlate clinically.
[2018-07-19 11:22] LABS: INR 1.2 (<1.2); Prothrombin Time 11.2 sec (9.0-12.0)
[2018-07-19 11:23] LABS: Partial Thromboplastin Time 23.6 sec (22.0-30.0)
[2018-07-19 11:28] LABS: Basophils % (A) 0 %; Eosinophils # (A) 0.4 k/uL (0-0.7); Eosinophils % (A) 4 %; HCT 25.5 % (39.0-53.0); HGB 8.5 gm/dL (13.0-17.5); Hypochromasia Slight; Lymphocytes # (A) 0.8 k/uL (1.0-4.8); Lymphocytes % (A) 9 %; MCH 34.1 pg (25.0-35.0); MCHC 33.5 g/dL (31.0-37.0); MCV 101.9 fL (80.0-100.0); Macrocytosis Slight; Monocytes # (A) 0.2 k/uL (0-1.0); Monocytes % (A) 2 %; Neutrophils # (A) 7.7 k/uL (1.3-7.7); Neutrophils % (A) 83 %; Platelet Count 355 k/uL (150-450); RDW 13.7 % (11.5-15.5); WBC 9.2 k/uL (3.8-10.6)
[2018-07-19 11:29] LABS: Albumin 2.2 g/dL (3.5-5.0); Calcium 9.5 mg/dL (8.4-10.2); Magnesium 1.9 mg/dL (1.6-2.3); Potassium 4.2 mmol/L (3.5-5.1); Total Bilirubin 0.3 mg/dL (0.2-1.3); Total Protein 5.2 g/dL (6.3-8.2)
[2018-07-19 11:49] LABS: Creatine Kinase <20 U/L (55-170)
[2018-07-19 12:02] LABS: Creatine Kinase MB 1.9 ng/mL (0.0-2.4); Troponin I <0.012 ng/mL (0.000-0.034)
[2018-07-19] MEDS ORDERED: FUROSEMIDE 10 MG/ML 10 ML VIAL IV STA (12:17)
[2018-07-19] MEDS ORDERED: ASPIRIN 325 MG TAB PO STA (12:20)
[2018-07-19] MEDS: NITROGLYCERIN OINT 1 INCH/GM PACKET TOPICAL SCH ×2 (12:49→18:59)
[2018-07-19] MEDS ORDERED: LACTULOSE 20 GM/30 ML CUP PO PRN (16:48)
[2018-07-19] MEDS ORDERED: MAGNESIUM HYDROXIDE 2,400 MG/10 ML CUP PO PRN (16:48)
[2018-07-19] MEDS ORDERED: BISACODYL 10 MG SUPP RECTAL PRN (16:48)
[2018-07-19] MEDS ORDERED: NA PHOS,M-B/NA PHOS,DI-BA 133 ML ENEMA RECTAL PRN (16:48)
[2018-07-19] MEDS ORDERED: LORazepam 0.5 MG TAB PO PRN (16:48)
[2018-07-19] MEDS: CLOPIDOGREL 75 MG TAB PO SCH (17:35)
[2018-07-19] MEDS: LACTOBACILLUS ACIDOPH & BULGAR 1 EACH PACKET PO SCH (17:38)
[2018-07-19] MEDS: metFORMIN 500 MG TAB PO SCH (17:38)
[2018-07-19] MEDS: PANTOPRAZOLE 40 MG TABLET PO SCH (17:39)
[2018-07-19] MEDS: POTASSIUM CHLORIDE ER 10 MEQ TAB.ER.PRT PO SCH (17:39)
[2018-07-19] MEDS: FERROUS SULFATE 325 MG TAB PO SCH (17:40)
[2018-07-19] MEDS: GABAPENTIN 100 MG CAP PO SCH (17:42)
[2018-07-19] MEDS: VANCOMYCIN 1,250 MG in SODIUM CHLORIDE 0.9% 250 ML IVPB SCH (18:50)
[2018-07-19] MEDS: FUROSEMIDE 10 MG/ML 4 ML VIAL IV SCH (19:53)
[2018-07-19] MEDS: ASPIRIN 81 MG PO SCH (19:53)
[2018-07-19] MEDS: METOPROLOL TARTRATE 25 MG TAB PO SCH (19:53)
[2018-07-19] MEDS: LISINOPRIL 10 MG TAB PO SCH (19:53)
[2018-07-19] MEDS: DONEPEZIL 10 MG TAB PO SCH (19:53)
[2018-07-19] MEDS ORDERED: GLUCERNA SHAKE PO SCH (20:00)
[2018-07-19] MEDS: SYMBICORT 80-4.5 MCG INHALER INHALATION SCH (20:50)
[2018-07-19] MEDS ORDERED: VANCOMYCIN 1,000 MG VIAL IVPB SCH (21:00)
[2018-07-19] MEDS: PIPERACILLIN-TAZOBACTAM 3.375 GM in DEXTROSE/WATER 1 50ML.BAG IVPB SCH (21:02)
[2018-07-19 22:03] LABS: Glucose,Whole Blood 105 mg/dL (75-99)
--- NOTE | 2018-07-19 22:10 | HP ---
HISTORY AND PHYSICAL DATE OF ADMISSION: July 19, 2018. PRESENTING COMPLAINT: Short of breath. HISTORY OF PRESENTING COMPLAINT: This is a pleasant 72-year-old patient who follows with Dr. Mendes, currently in the [facility]. The patient recently in the hospital from 06/30/2018, was discharged on 07/02/2018, readmitted on 07/06/2018 and discharged on 07/09/2018. The patient both admissions acute periorbital cellulitis and responded well to antibiotics. The patient was discharged on 07/09/2018 with both IV Zosyn and vancomycin to be given for 2 more weeks to be continued at [facility]. The patient's chronic stable medical conditions include COPD, diabetes, GERD, hyperlipidemia, hypertension, coronary artery disease, hypothyroid. Most of the history is obtained by the at the bedside. The patient has been feeling weak and tired and also fell off the bed, found to be short of breath. Denies any fever or chills. Eyes have actually improved. The patient is tired and run down. The patient in the ER was found to have elevated BNP and acute congestive heart failure. Put on IV Lasix. There has been no chest pain. REVIEW OF SYSTEMS: CONSTITUTIONAL: Weak and tired. HEENT: Swelling, redness around the right eye, much improved. RESPIRATORY: Shortness of breath. CARDIOVASCULAR: No chest pain. GASTROINTESTINAL: None. GENITOURINARY: None. MUSCULOSKELETAL: Pain in the joints. DERMATOLOGICAL as above. LYMPHATICS none. PSYCHIATRY none. NEUROLOGICAL: None. PAST MEDICAL HISTORY: COPD, diabetes, GERD, hyperlipidemia, hypertension, myocardial infarction, osteoarthritis, hypothyroid, macular degeneration, colonic diverticulosis. Carotid stenosis, anemia, being worked up by Dr. Shelby, hiatal hernia. Neuropathy in the hands and feet. Right periorbital cellulitis. PAST SURGICAL HISTORY: 1. Bilateral aortogram with bilateral stents. 2. Left shoulder with hardware. 3. Fasciotomy of the right calf. SOCIAL HISTORY: Currently a resident of [facility]. . Stopped smoking in the s. 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 FAMILY HISTORY: Coronary artery disease, diabetes, myocardial infarction. MEDICATIONS: 1. Fleet Adult 133 mL rectally daily p.r.n. 2. Milk of Magnesia 2400 mg p.o. daily p.r.n. 3. Lactulose 10 grams p.o. b.i.d. p.r.n. 4. Ativan 0.5 q.8h p.r.n. 5. Dulcolax 10 mg rectal daily p.r.n. 6. IV Zosyn 4.5 g q.8h. 7. Humalog. 8. Glucerna shake 120 mL p.o. t.i.d. 9. Metformin 500 mg p.o. b.i.d. 10.Prilosec 20 mg p.o. b.i.d. 11.Lopressor 25 mg p.o. b.i.d. 12.Neurontin 200 mg p.o. b.i.d. 13.Vancomycin 1250 mg IV piggyback q.12h. 14.Flomax 0.8 mg p.o. daily. 15.Potassium 10 mEq p.o. daily. 16.Advair 100/50 one puff b.i.d. 17.Megace 400 mg p.o. daily. 18.Lactobacilli 1 tablet p.o. daily. 19.Plavix 75 mg p.o. daily. 20.Fosinopril 10 mg p.o. q.h.s. 21.Iron 325 p.o. daily. 22.Aricept 10 mg p.o. daily. 23.Celexa 20 mg p.o. daily. 24.Aspirin 81 mg q.h.s. ALLERGIES: None. PHYSICAL EXAMINATION: VITAL SIGNS: Temperature, afebrile. Pulse 92, respiration 26, blood pressure 116/57, pulse ox 93 percent on 15% non-rebreather. GENERAL APPEARANCE: Average build. Lying in bed. Tired-appearing. EYES: Pupils equal. Conjunctivae normal. HEENT: External appearance of nose and ears normal. Oral cavity a bit dry. NECK: JVD unable to assess. Mass not palpable. RESPIRATORY: Effort increased. LUNGS: Decreased breath sounds. CARDIOVASCULAR: 1st and 2nd sounds normal. No edema. ABDOMEN: Soft, nontender. Liver and spleen not palpable. LYMPHATICS: No lymph nodes palpable in the neck and axilla. PSYCHIATRY: Awake, able to answer simple questions. MUSCULOSKELETAL: Some evidence of osteoarthritis especially in the hands. NEUROLOGICAL: Pupils equal. No facial asymmetry. Moving all 4 limbs. INVESTIGATIONS: White count 9.2, hemoglobin 8.5, potassium 4.2, BUN 25, creatinine 1.12. ProBNP 1870. Albumin 2.2. Chest x-ray film personally reviewed by me showed evidence of fluid in the fissures and pulmonary edema. EKG personally reviewed by me shows normal sinus rhythm. 2D echocardiogram in January of this year showed EF of 55-60 percent. ASSESSMENT: 1. Acute congestive heart failure exacerbation from diastolic dysfunction. Ejection fraction 55-60 percent. 2. Acute periorbital cellulitis of the right eye with involvement of the perirectus muscle from last admission on IV antibiotics improving. 3. Chronic obstructive pulmonary disease in an ex-smoker. 4. Diabetes mellitus type 2 on oral hypoglycemics. 5. Hyperlipidemia. 6. Essential hypertension. 7. Coronary artery disease prior history of myocardial infarction. 8. Primary osteoarthritis. 9. Mild to moderate cognitive impairment from late onset Alzheimer's dementia. 10.Macular degeneration. 11.Chronic gait dysfunction, uses a walker. 12.Colonic diverticulosis. 13.Normocytic anemia cause unknown, being followed by Dr. Shelby. 14.Peripheral neuropathy secondary to diabetes. 15.Chronic urine outflow obstruction, patient has a Gal[place] catheter, being followed by Dr. Milner. 16.Chronically occluded left internal carotid artery. PLAN: Home medications are resumed. Patient is put on IV Lasix. Electrolytes will be closely followed. The patient's prognosis is guarded. Care was discussed with the at the bedside. The patient's antibiotics are due to stop on 07/23/2018. MMODL / IJN: [id number] /
[2018-07-19] MEDS: LACTATED RINGERS 1,000 ML IV SCH (23:32)
[2018-07-20] MEDS ORDERED: TAZOBACTAM IVPB SCH
[2018-07-20] MEDS ORDERED: PIPERACILLIN SODIUM IVPB SCH
[2018-07-20] MEDS: FUROSEMIDE 10 MG/ML 4 ML VIAL IV SCH ×3 (03:35→21:52)
[2018-07-20] MEDS: PIPERACILLIN-TAZOBACTAM 3.375 GM in DEXTROSE/WATER 1 50ML.BAG IVPB SCH ×3 (03:35→18:25)
[2018-07-20] MEDS: VANCOMYCIN 1,250 MG in SODIUM CHLORIDE 0.9% 250 ML IVPB SCH ×2 (06:02→18:32)
[2018-07-20] MEDS: PANTOPRAZOLE 40 MG TABLET PO SCH ×2 (06:04→16:57)
[2018-07-20 06:18] LABS: Glucose,Whole Blood 112 mg/dL (75-99)
[2018-07-20 06:41] LABS: Basophils % (A) 0 %; Eosinophils # (A) 0.4 k/uL (0-0.7); Eosinophils % (A) 5 %; HCT 25.9 % (39.0-53.0); HGB 8.1 gm/dL (13.0-17.5); Hypochromasia Slight; Lymphocytes # (A) 0.7 k/uL (1.0-4.8); Lymphocytes % (A) 8 %; MCH 31.5 pg (25.0-35.0); MCHC 31.3 g/dL (31.0-37.0); MCV 100.6 fL (80.0-100.0); Mean Platelet Volume 7.5; Monocytes # (A) 0.2 k/uL (0-1.0); Monocytes % (A) 2 %; Neutrophils # (A) 7.3 k/uL (1.3-7.7); Neutrophils % (A) 83 %; Platelet Count 372 k/uL (150-450); RBC 2.57 m/uL (4.30-5.90); RDW 13.7 % (11.5-15.5); WBC 8.8 k/uL (3.8-10.6)
[2018-07-20 06:53] LABS: Calcium 9.5 mg/dL (8.4-10.2); Potassium 3.5 mmol/L (3.5-5.1)
[2018-07-20] MEDS: TAMSULOSIN 0.4 MG CAP.ER.24H PO SCH (08:28)
[2018-07-20] MEDS: GABAPENTIN 100 MG CAP PO SCH ×2 (08:28→16:54)
[2018-07-20] MEDS: metFORMIN 500 MG TAB PO SCH ×2 (08:28→16:56)
[2018-07-20] MEDS: METOPROLOL TARTRATE 25 MG TAB PO SCH ×2 (08:28→22:00)
[2018-07-20] MEDS: CITALOPRAM HYDROBROMIDE 20 MG TAB PO SCH (08:28)
[2018-07-20] MEDS ORDERED: ASPIRIN 325 MG TAB PO SCH (09:00)
[2018-07-20] MEDS: SYMBICORT 80-4.5 MCG INHALER INHALATION SCH ×2 (09:16→19:18)
--- NOTE | 2018-07-20 10:10 | P.CRDCN ---
History of Present Illness Consult date: 07/20/18 Requesting physician: Filiberto Lala Consult reason: congestive heart failure Chief complaint: shortness of breath History of present illness: this is a 72-year-old gentleman who follows with Dr. Covarrubias in the office. He has known history of diabetes, hypertension, hyperlipidemia, , coronary artery disease, PAD with prior peripheral intervention, he resides at an extended care facility.most of the patient's past medical history was taken from the medical record. According to the ER note, it was noted that the patient's oxygenation was down in the 50s. He denied any chest discomfort or palpitations at that time and according to staff did not very short of breath.chest x-ray on admission here revealed progressive changes with diffuse interstitial pattern on the basis of congestive heart failure, interstitial pneumonitis or atypical pneumonia.EKG shows normal sinus rhythm with no acute changes.blood pressure on arrival here 116/50, heart rate in the 80s, respirations 26, 94% on a 15% nonrebreather.blood pressure this morning 120/70 with a heart rate in the 90s, 94% on 15% slow.White blood cell count 8.8, hemoglobin 8.1, platelet count 372.sodium 139, potassium 3.5, BUN 24, creatinine 1.2.magnesium 1.9. Troponin 0.012, BNP level 1870.BNP level in January of this year 11,500.at the time of my examination this morning, patient is lying flat in bed, does not appear to be short of breath and denies any shortness of breath. No peripheral edema noted. Past Medical History Past Medical History: Asthma, Heart Failure, COPD, CVA/TIA, Dementia, Diabetes Mellitus, Eye Disorder, GERD/Reflux, Hyperlipidemia, Hypertension, Myocardial Infarction (SD), Osteoarthritis (OA), Pneumonia, Prostate Disorder, Thyroid Disorder, Vascular Disorder Additional Past Medical History / Comment(s): Several bouts periorbital cellulitis, spouse state that pts general health has been declining over the past few weeks with increased forgetfulness/weakness/falls, pt now stands with staff and gets into wheelchair, unexplained weight loss, wound on coccyx and spouse states wound to R knee is now scabbed over and R foot wound is healed, macular degeneration R eye, BPH with urine outlfow obstruction-recently had TURP and hadley discontinued and reinserted and spouse states hadley to remain in now, NIDDM type II, neuropathy bilateral hands/feet, TIA, cardiac murmur, PVD, caratid disease, macrocytic anemia-followed by Dr. Shelby, hiatal hernia, diverticular disease, hypothyroid. Last Myocardial Infarction Date:: 1996 History of Any Multi-Drug Resistant Organisms: ESBL Date of last positivie culture/infection: 06/09/18 ESBL-Klebsiella MDRO Source:: Urine Past Surgical History: Orthopedic Surgery, Prostate Surgery Additional Past Surgical History / Comment(s): 06/17/18 TURP, ANA AORTAGRAM WITH ANA STENTS. , LEFT SHOULDER WITH HARDWARE ( HARDWARE REMOVED) , LEFT KNEE ligament repair. colonocopy , FASCIOTOMY OF RIGHT CALF, egd w/bx., piccline lt arm 10-09-17 Past Anesthesia/Blood Transfusion Reactions: No Reported Reaction Smoking Status: Former smoker - Past Family History Sister(s) Family Medical History: Cancer Additional Family Medical History / Comment(s): Lung Cancer Mother Family Medical History: No Reported History Additional Family Medical History / Comment(s): from "natural causes" Father Family Medical History: Coronary Artery Disease (CAD), Diabetes Mellitus, Myocardial Infarction (SD) Medications and Allergies Home Medications Medication Instructions Recorded Confirmed Type Clopidogrel [Plavix] 75 mg PO DAILY@169906/22/15 07/19/18 History Omeprazole [PriLOSEC] 20 mg PO BID@0600,0 12/18/17 07/19/18 History Aspirin EC [Ecotrin Low Dose] 81 mg PO HS@209901/29/18 07/19/18 History Ferrous Sulfate [Iron (65 MG 325 mg PO DAILY@169902/15/18 07/19/18 History Elemental)] Fosinopril Sodium 10 mg PO HS@209902/15/18 07/19/18 History Glucerna Shake 120 ml PO TID@0800,1400,199902/15/18 07/19/18 History Metoprolol Tartrate [Lopressor] 25 mg PO BID@0800,209902/15/18 07/19/18 History Potassium Chloride [Klor-Con 10] 10 meq PO DAILY@0 02/26/18 07/19/18 History Fluticasone/Salmeterol [Advair 1 puff INHALATION RT-BID 04/14/18 07/19/18 History 100-50 Diskus] Bisacodyl [Dulcolax] 10 mg RECTAL DAILY PRN 06/16/18 07/19/18 History Gabapentin [Neurontin] 200 mg PO BID@0800,1700 06/16/18 07/19/18 History Tamsulosin HCl [Flomax] 0.8 mg PO DAILY@1200 06/16/18 07/19/18 History INSULIN LISPRO (HumaLOG) [humaLOG] See Protocol SQ ACHS 06/29/18 07/19/18 History Lactulose 10 gm PO BID PRN 06/29/18 07/19/18 History metFORMIN HCL [Glucophage] 500 mg PO BID@0800,1700 06/29/18 07/19/18 History Citalopram Hydrobromide [CeleXA] 20 mg PO DAILY@0800 07/06/18 07/19/18 History Donepezil [Aricept] 10 mg PO DAILY@2100 07/06/18 07/19/18 History Magnesium Hydroxide [Milk of 2,400 mg PO DAILY PRN 07/06/18 07/19/18 History Magnesia] Na Phos,M-B/Na Phos,Di-Ba [Fleet 133 ml RECTAL DAILY PRN 07/06/18 07/19/18 History Adult] LORazepam [Ativan] 0.5 mg PO Q8H PRN #7 tab 07/09/18 07/19/18 Rx Megestrol [Megace] 400 mg PO DAILY #3 cup 07/09/18 07/19/18 Rx Piperacillin Sodium/Tazobactam 4.5 gm IVPB Q8HR #42 bag 07/09/18 07/19/18 Rx [Zosyn] Vancomycin 1,250 mg IVPB Q12HR #28 bag 07/09/18 07/19/18 Rx Lactobacillus Acidophilus 1 tab PO DAILY@1700 07/19/18 07/19/18 History [Acidophilus] Allergies Allergy/AdvReac Type Severity Reaction Status Date / Time No Known Allergies Allergy Verified 07/19/18 10:48 Physical Exam Vitals: Vital Signs Temp Pulse Pulse Resp BP BP Pulse Ox 07/20/18 09:18 96 07/20/18 08:00 94 16 120/71 94 L 07/20/18 03:37 82 20 121/52 98 07/20/18 03:14 22 07/20/18 00:00 97 F L 85 22 125/58 98 07/19/18 20:51 97 07/19/18 19:54 97 F L 87 20 119/54 98 07/19/18 16:00 97.8 F 119 H 18 119/56 98 07/19/18 15:30 83 18 104/65 96 07/19/18 15:26 98 F 07/19/18 14:30 84 17 127/90 07/19/18 14:00 89 19 130/60 97 07/19/18 13:50 87 19 125/74 96 07/19/18 12:51 95 07/19/18 12:40 89 24 121/65 96 07/19/18 12:10 94 21 127/64 100 07/19/18 11:50 90 24 111/77 07/19/18 10:54 93 28 H 99/50 96 07/19/18 10:30 85 07/19/18 10:20 87 07/19/18 10:00 80 L Intake and Output 07/19/18 07/20/18 07/20/18 22:59 06:59 14:59 Intake Total 250 50 Output Total 1600 Balance 250 -1550 Intake: Intake, IV Titration 250 50 Amount Piperacillin-Tazobactam 3 50 .375 gm In Dextrose/Water 1 50ml.bag @ 12.5 mls/hr IVPB Q8H [facility] Rx#: [id number] Vancomycin 1,250 mg In 250 Sodium Chloride 0.9% 250 ml @ 125 mls/hr IVPB Q12H [facility] Rx#:[id number] Output: Urine 1600 Other: Voiding Method Indwelling Catheter Indwelling Catheter Weight 71 kg PHYSICAL EXAMINATION: GENERAL:72-year-old gentleman in no acute distress at the time of my examination HEENT: Head is atraumatic, normocephalic. Pupils equal, round. Sclera anicteric. Conjunctiva are clear. Mucous membranes of the mouth are moist. Neck is supple. There is no elevated jugular venous pressure. carotid bruit is heard. HEART EXAMINATION: [Heart S1, [id number] murmur heard.] CHEST EXAMINATION:[ Lungs are clear with fine crackles to bilateral bases. No chest wall tenderness is noted on palpation or with deep breathing.] ABDOMEN: [ Soft, nontender. Bowel sounds are heard. No organomegaly noted]. EXTREMITIES:[ 1+ peripheral pulses with no evidence of peripheral edema and no calf tenderness noted]. NEUROLOGIC [patient is awake, alert and oriented X1] . Results 07/20/18 06:12 07/20/18 06:12 Cardiac Enzymes 07/19/18 07/19/18 Range/Units 10:15 10:15 AST 11 L (17-59) U/L CK-MB (CK-2) 1.9 (0.0-2.4) ng/mL Troponin I <0.012 (0.000-0.034) ng/mL Coagulation 07/19/18 Range/Units 10:15 PT 11.2 (9.0-12.0) sec APTT 23.6 (22.0-30.0) sec CBC 07/19/18 07/20/18 Range/Units 10:15 06:12 WBC 9.2 8.8 (3.8-10.6) k/uL RBC 2.50 L 2.57 L (4.30-5.90) m/uL Hgb 8.5 L 8.1 L (13.0-17.5) gm/dL Hct 25.5 L 25.9 L (39.0-53.0) % Plt Count 355 372 (150-450) k/uL Comprehensive Metabolic Panel 07/19/18 07/20/18 Range/Units 10:15 06:12 Sodium 140 139 (137-145) mmol/L Potassium 4.2 3.5 (3.5-5.1) mmol/L Chloride 112 H 107 (98-107) mmol/L Carbon Dioxide 20 L 24 (22-30) mmol/L BUN 25 H 24 H (9-20) mg/dL Creatinine 1.12 1.22 (0.66-1.25) mg/dL Glucose 123 H 102 H (74-99) mg/dL Calcium 9.5 9.5 (8.4-10.2) mg/dL AST 11 L (17-59) U/L ALT 21 (21-72) U/L Alkaline Phosphatase 45 (38-126) U/L Total Protein 5.2 L (6.3-8.2) g/dL Albumin 2.2 L (3.5-5.0) g/dL Current Medications Generic Name Dose Route Start Last Admin Trade Name Freq PRN Reason Stop Dose Admin Aspirin 81 mg 07/19/18 21:00 07/19/18 19:53 Aspirin PO 81 mg HS@2100 [facility] Administration Bisacodyl 10 mg 07/19/18 16:48 Dulcolax RECTAL DAILY PRN Constipation Budesonide/Formoterol Fumarate 2 puff 07/19/18 20:00 07/20/18 09:16 Symbicort 80-4.5 Mcg Inhaler INHALATION 2 puff RT-BID [facility] Administration Citalopram Hydrobromide 20 mg 07/20/18 08:00 07/20/18 08:28 Celexa PO 20 mg DAILY@0800 [facility] Administration Clopidogrel Bisulfate 75 mg 07/19/18 17:00 07/19/18 17:35 Plavix PO Not Given DAILY@1700 [facility] Donepezil HCl 10 mg 07/19/18 21:00 07/19/18 19:53 Aricept PO 10 mg DAILY@2100 [facility] Administration Ferrous Sulfate 325 mg 07/19/18 17:15 07/19/18 17:40 Feosol PO Not Given DAILY@1700 [facility] Furosemide 40 mg 07/19/18 20:00 07/20/18 08:28 Lasix IV 40 mg Q8H [facility] Administration Gabapentin 200 mg 07/19/18 17:15 07/20/18 08:28 Neurontin PO 200 mg BID@0800,1700 [facility] Administration Piperacillin/Tazobactam/ 50 mls @ 12.5 mls/hr 07/19/18 18:00 07/20/18 08:29 Dextrose 3.375 gm/ IV Solution IVPB 07/21/18 23:00 12.5 mls/hr Q8H [facility] Administration Vancomycin HCl 1,250 mg/ 250 mls @ 125 mls/hr 07/19/18 18:00 07/20/18 06:02 Sodium Chloride IVPB 07/21/18 23:00 125 mls/hr Q12H [facility] Administration Lactated Ringer's 1,000 mls @ 75 mls/hr 07/19/18 23:30 07/19/18 23:32 Lactated Ringers IV 75 mls/hr .[id number] [facility] Administration Lactobacillus Acidoph/Bulgaricus 1 each 07/19/18 17:00 07/19/18 17:38 Lactinex PO Not Given DAILY@1700 [facility] Lactulose 10 gm 07/19/18 16:48 Cephulac PO BID PRN Constipation Lisinopril 10 mg 07/19/18 21:00 07/19/18 19:53 Zestril PO 10 mg HS@2100 [facility] Administration Lorazepam 0.5 mg 07/19/18 16:48 Ativan PO Q8H PRN Anxiety Magnesium Hydroxide 2,400 mg 07/19/18 16:48 Milk Of Magnesia PO DAILY PRN Constipation Megestrol Acetate 400 mg 07/20/18 09:00 Megace PO DAILY [facility] Metformin HCl 500 mg 07/19/18 17:00 07/20/18 08:28 Glucophage PO 500 mg BID@0800,1700 [facility] Administration Metoprolol Tartrate 25 mg 07/19/18 21:00 07/20/18 08:28 Lopressor PO 25 mg BID@0800,2100 [facility] Administration Miscellaneous Information 0 each 07/21/18 05:00 Vancomycin Trough Due MISCELLANE 07/21/18 05:01 DIRECTED ONE Pantoprazole Sodium 40 mg 07/19/18 17:00 07/20/18 06:04 Protonix PO 40 mg BID@0600,1700 [facility] Administration Potassium Chloride 10 meq 07/19/18 17:00 07/19/18 17:39 K-Dur 10 PO Not Given DAILY@1700 [facility] Sodium Biphosphate/Sodium Phosphate 133 ml 07/19/18 16:48 Fleet Adult RECTAL DAILY PRN Constipation Tamsulosin HCl 0.8 mg 07/20/18 12:00 07/20/18 08:28 Flomax PO 0.8 mg DAILY@1200 [facility] Administration Intake and Output 07/19/18 07/20/18 07/20/18 22:59 06:59 14:59 Intake Total 250 50 Output Total 1600 Balance 250 -1550 Intake: Intake, IV Titration 250 50 Amount Piperacillin-Tazobactam 3 50 .375 gm In Dextrose/Water 1 50ml.bag @ 12.5 mls/hr IVPB Q8H [facility] Rx#: [id number] Vancomycin 1,250 mg In 250 Sodium Chloride 0.9% 250 ml @ 125 mls/hr IVPB Q12H [facility] Rx#:[id number] Output: Urine 1600 Other: Voiding Method Indwelling Catheter Indwelling Catheter Weight 71 kg 07/20/18 06:12 07/20/18 06:12 EKG Interpretations (text) EKG shows normal sinus rhythm with no acute changes Assessment and Plan Plan: Assessment and plan #1 hypoxia with evidence of mild congestive heart failure diastolic in nature, acute on chronic #2 diabetes #3 hypertension #4 hyperlipidemia #5 coronary artery involving the RCA and circumflex artery #6 PAD with prior peripheral interventions #7 history of nicotine dependence #8 GERD #9 COPD #10 recent periorbital cellulitis #11 also #disease #12 anemia plan We will obtain an echocardiogram with Doppler study. Continue current dose of IV Lasix for 24 hours. Patient did have an echocardiogram with Doppler study performed in January which time it revealed normal left ventricular systolic function. Monitor intake and output along with daily weights and daily lytes BUN and creatinine. Further recommendations to follow. DNP note has been reviewed, I agree with a documented findings and plan of care. Patient was seen and examined.
[2018-07-20 12:00] LABS: Glucose,Whole Blood 159 mg/dL (75-99)
[2018-07-20] MEDS: MEGESTROL 400 MG/10 ML CUP PO SCH (12:27)
--- NOTE | 2018-07-20 13:21 | CDI ---
Last Revision, August 2017 Documentation Clarification Form Date: 07/20/2018 1:01:03 PM From: Bell Yao Admit Date: 07/19/2018 12:20:00 PM Patient Name: Cirilo Leung Visit Number: [id number] ATTENTION: The Clinical Documentation Specialists (CDI) and [facility] Coding Staff appreciate your assistance in clarifying documentation. Please respond to the clarification below the line at the bottom and electronically sign. The CDI & [facility] Coding staff will review the response and follow-up if needed. Please note: Queries are made part of the Legal Health Record. If you have any questions, please contact the author of this message via ITS. Filiberto Grover MD History/Risk Factors: COPD, HTN, CT, L ICA stenosis, right periorbital cellulitis Tobacco use: stopped smoking in the Clinical Indicators: 07/20 Cardiology: "hypoxia with evidence of mild congestive heart failure diastolic in nature, acute on chronic." Vital signs: temp 97.8, hr 85, RR 24, B/P 116/57 Pulse oximetry: SPO@ 80% on room air, 93 % on 100% NRB H&P: Lung/Breathing assessment: Respiratory: SOB, increased effort, decreased breath sounds Treatment: Breathing TX: Duoneb Continuous Pulse ox per unit protocol O2 100% NRB weaned down to 12 L high flow nasal cannula In your professional opinion, can you please clarify if these findings signify one of the following conditions? Acuity: Acute Specificity: Respiratory Failure, further specify (if known): With hypercapnia? With hypoxia? Other Diagnosis, please specify Unable to determine Please continue to document in your progress notes and discharge summary in order to capture severity of illness and risk of mortality. Include clinical findings that support your diagnosis. see documentation in progress notes-no change MTDD
--- NOTE | 2018-07-20 13:35 | CDI ---
Last Revision, August 2017 Documentation Clarification Form Date: 07/20/2018 1:22:23 PM From: Bell Yao RN, CCDS Admit Date: 07/19/2018 12:20:00 PM Patient Name: Cirilo Leung Visit Number: [id number] ATTENTION: The Clinical Documentation Specialists (CDI) and [facility] Coding Staff appreciate your assistance in clarifying documentation. Please respond to the clarification below the line at the bottom and electronically sign. The CDI & [facility] Coding staff will review the response and follow-up if needed. Please note: Queries are made part of the Legal Health Record. If you have any questions, please contact the author of this message via ITS. Filiberto Grover MD A diagnosis of anemia lacks specificity to accurately reflect your patients severity of condition and treatment, and clarification is needed. History/Risk Factors: Anemia, COPD, HTN, AR, Carotid Stenosis, right periorbital cellultis Clinical indicators: 07/20 Cardiology Consult: "macrocytic anemia-followed by Dr. Shelby." 07/19 H&P: "Normocytic anemia cause unknown, being followed by Dr. Shelby." Hemoglobin: 8.5/8.1 Hematocrit: 25.5/25.9 Treatment: Labs AM daily Feosol 325 mg PO QD In order to capture the severity of condition, please clarify the type of anemia and etiology if known: Chronic blood loss anemia Iron deficiency anemia Drug induced anemia Nutritional anemia Anemia of chronic disease Unable to determine Other, please specify Please continue to document in your progress notes and discharge summary in order to capture severity of illness and risk of mortality. Include clinical findings that support your diagnosis. unable to determine MTDD
[2018-07-20] MEDS: CLOPIDOGREL 75 MG TAB PO SCH (16:53)
[2018-07-20] MEDS: FERROUS SULFATE 325 MG TAB PO SCH (16:54)
[2018-07-20] MEDS: LACTOBACILLUS ACIDOPH & BULGAR 1 EACH PACKET PO SCH (17:02)
[2018-07-20] MEDS: POTASSIUM CHLORIDE ER 10 MEQ TAB.ER.PRT PO SCH (17:05)
[2018-07-20 17:15] LABS: Glucose,Whole Blood 174 mg/dL (75-99)
[2018-07-20] MEDS: LACTATED RINGERS 1,000 ML IV SCH (17:17)
[2018-07-20 20:50] LABS: Glucose,Whole Blood 236 mg/dL (75-99)
[2018-07-20] MEDS: DONEPEZIL 10 MG TAB PO SCH (22:00)
[2018-07-20] MEDS: LISINOPRIL 10 MG TAB PO SCH (22:00)
[2018-07-20] MEDS: ASPIRIN 81 MG PO SCH (22:01)
--- NOTE | 2018-07-20 23:37 | PN ---
PROGRESS NOTE DATE OF SERVICE: 07/20/2018. PRESENTING COMPLAINT: Short of breath. INTERVAL HISTORY: This is a patient who is on IV antibiotic, completing a course for right periorbital cellulitis, presented with acute CHF exacerbation. On IV Lasix. The patient is doing a little bit better today. More awake. Did tolerate some diet, though tired and run down on IV Lasix. REVIEW OF SYSTEMS: Done for constitutional, cardiovascular, GI, pulmonary; relevant findings as above. CURRENT MEDICATIONS: Reviewed, that include IV Zosyn, IV vancomycin, IV Lasix. PHYSICAL EXAMINATION: Temperature 97.8, pulse 119, respirations 18, blood pressure 119/56, pulse ox 98% on 15 L. GENERAL APPEARANCE: Lying in bed, tired-appearing but more awake today. EYES: Pupils equal. Conjunctivae normal. HEENT: External appearance of nose and ears normal. Oral cavity normal. NECK: JVD unable to assess. Mass not palpable. Respiratory effort increased. LUNGS: Decreased breath sounds. CARDIOVASCULAR: 1st and 2nd heart sounds. No edema. ABDOMEN: Soft, nontender. Liver and spleen not palpable. PSYCHIATRY: Awake, answering questions. INVESTIGATIONS: White count 8.8, hemoglobin 8.1, potassium 3.5, BUN 24, creatinine 1.22. ASSESSMENT: 1. Acute congestive heart failure exacerbation from diastolic dysfunction. Ejection fraction 55% to 60%. 2. Acute periorbital cellulitis, right eye, with involvement of the christina rectus muscle from last admission, on IV antibiotics to complete course in a couple of days. 3. Chronic obstructive pulmonary disease in an ex-smoker. 4. Diabetes mellitus type 2 on oral hypoglycemia. 5. Hyperlipidemia. 6. Essential hypertension. 7. Coronary artery disease, prior history of myocardial infarction. 8. Primary osteoarthritis. 9. Mild to moderate cognitive impairment from late onset Alzheimer's dementia. 10.Macular degeneration. 11.Chronic gait dysfunction, uses a walker. 12.Colonic diverticulosis. 13.Normocytic anemia, cause unknown, being followed by Dr. Shelby. 14.Peripheral neuropathy secondary to diabetes. 15.Chronic urinary outflow obstruction. Patient has a Galicia catheter, being followed by Dr. Milner. 16.Chronically occluded left internal carotid artery. PLAN: Patient was given IV Lasix. Will discontinue the IV fluids. Other medications to continue. Care was discussed with the patient. Will have Physical therapy see the patient. The patient is to continue on IV Lasix. Patient's CHF is slow to respond. Care was discussed with the patient. MMODL / IJN: [id number] /
[2018-07-21] MEDS: PIPERACILLIN-TAZOBACTAM 3.375 GM in DEXTROSE/WATER 1 50ML.BAG IVPB SCH ×3 (02:00→18:03)
[2018-07-21] MEDS: FUROSEMIDE 10 MG/ML 4 ML VIAL IV SCH ×2 (03:39→12:37)
[2018-07-21] MEDS ORDERED: VANCOMYCIN TROUGH DUE 1 EACH MISC MISCELLANE ONE (05:00)
[2018-07-21 05:46] LABS: Calcium 9.2 mg/dL (8.4-10.2); Potassium 3.3 mmol/L (3.5-5.1)
[2018-07-21] MEDS: VANCOMYCIN 1,250 MG in SODIUM CHLORIDE 0.9% 250 ML IVPB SCH (05:57)
[2018-07-21] MEDS: PANTOPRAZOLE 40 MG TABLET PO SCH ×2 (05:57→17:39)
[2018-07-21 06:17] LABS: Glucose,Whole Blood 130 mg/dL (75-99)
--- NOTE | 2018-07-21 07:46 | XR ---
EXAMINATION TYPE: XR chest 2V DATE OF EXAM: 07/21/2018 COMPARISON: 07/19/2018 HISTORY: Difficulty breathing and congestive heart failure. Hypoxemia. TECHNIQUE: Frontal and lateral views of the chest are obtained. FINDINGS: Diffuse interstitial reticular pattern is seen throughout the lungs with increasing conflu ence of the right lower lung and stable confluence at the left lung base. Cardia mediastinal silhouet te is stable and nonenlarged. Trace pleural effusions remain. Old left clavicular fracture is again n oted. Left-sided PICC terminates in the cavoatrial junction. IMPRESSION: Similar-appearing coarsened reticular interstitial pattern with lower lung confluent air space disease and trace pleural effusions. Differential remains for pulmonary edema/fluid overload or atypical pneumonia/pneumonitis.
[2018-07-21] MEDS: METOPROLOL TARTRATE 25 MG TAB PO SCH ×2 (08:34→20:44)
[2018-07-21] MEDS: GABAPENTIN 100 MG CAP PO SCH ×2 (08:38→17:35)
[2018-07-21] MEDS: metFORMIN 500 MG TAB PO SCH ×2 (08:38→17:39)
[2018-07-21] MEDS: CITALOPRAM HYDROBROMIDE 20 MG TAB PO SCH (08:38)
[2018-07-21] MEDS: MEGESTROL 400 MG/10 ML CUP PO SCH (08:39)
[2018-07-21] MEDS: SYMBICORT 80-4.5 MCG INHALER INHALATION SCH ×2 (09:30→21:40)
[2018-07-21 11:55] LABS: Glucose,Whole Blood 186 mg/dL (75-99)
--- NOTE | 2018-07-21 12:12 | P.PN ---
Subjective Progress Note Date: 07/21/18 This is a 72-year-old gentleman who follows with Dr. Covarrubias in the office. He has known history of diabetes, hypertension, hyperlipidemia, , coronary artery disease, PAD with prior peripheral intervention, he resides at an extended care facility.most of the patient's past medical history was taken from the medical record. According to the ER note, it was noted that the patient's oxygenation was down in the 50s. He denied any chest discomfort or palpitations at that time and according to staff did not very short of breath.chest x-ray on admission here revealed progressive changes with diffuse interstitial pattern on the basis of congestive heart failure, interstitial pneumonitis or atypical pneumonia.EKG shows normal sinus rhythm with no acute changes.blood pressure on arrival here 116/50, heart rate in the 80s, respirations 26, 94% on a 15% nonrebreather.blood pressure this morning 120/70 with a heart rate in the 90s, 94% on 15% slow.White blood cell count 8.8, hemoglobin 8.1, platelet count 372.sodium 139, potassium 3.5, BUN 24, creatinine 1.2.magnesium 1.9. Troponin 0.012, BNP level 1870.BNP level in January of this year 11,500.at the time of my examination this morning, patient is lying flat in bed, does not appear to be short of breath and denies any shortness of breath. No peripheral edema noted. 07/21/2018 Patient was seen and examined this morning, he did diurese well through the night last night. Potassium this morning 3.3. BUN 28 and creatinine 1.2. We will discontinue the IV Lasix this afternoon and jacket changer to oral diuretics. Echo remains pending. Objective - Vital Signs Vital signs: Vital Signs Temp 98.1 F 07/21/18 08:00 Pulse 68 07/21/18 08:00 Resp 24 07/21/18 08:00 BP 92/48 07/21/18 08:00 Pulse Ox 92 L 07/21/18 08:00 Intake & Output 07/20/18 07/21/18 07/21/18 18:59 06:59 18:59 Intake Total 578 Output Total 1000 750 Balance -422 -750 Weight 71.1 kg 71.1 kg Intake: Oral 578 Output: Urine 1000 750 Other: Voiding Method Indwelling Catheter Indwelling Catheter Indwelling Catheter # Bowel Movements 2 - Exam PHYSICAL EXAMINATION: GENERAL:72-year-old gentleman in no acute distress at the time of my examination HEENT: Head is atraumatic, normocephalic. Pupils equal, round. Sclera anicteric. Conjunctiva are clear. Mucous membranes of the mouth are moist. Neck is supple. There is no elevated jugular venous pressure. carotid bruit is heard. HEART EXAMINATION: [Heart S1, [id number] murmur heard.] CHEST EXAMINATION:[ Lungs are clear with fine crackles to bilateral bases. No chest wall tenderness is noted on palpation or with deep breathing.] ABDOMEN: [ Soft, nontender. Bowel sounds are heard. No organomegaly noted]. EXTREMITIES:[ 1+ peripheral pulses with no evidence of peripheral edema and no calf tenderness noted]. NEUROLOGIC [patient is awake, alert and oriented X1] . - Labs CBC & Chem 7: 07/20/18 06:12 07/21/18 05:23 Labs: Abnormal Lab Results - Last 24 Hours (Table) 07/20/18 07/20/18 07/20/18 Range/Units 11:35 16:56 20:48 Sodium (137-145) mmol/L Potassium (3.5-5.1) mmol/L BUN (9-20) mg/dL Glucose (74-99) mg/dL POC Glucose (mg/dL) 159 H 174 H 236 H (75-99) mg/dL 07/21/18 07/21/18 07/21/18 Range/Units 05:23 06:15 11:38 Sodium 135 L (137-145) mmol/L Potassium 3.3 L (3.5-5.1) mmol/L BUN 28 H (9-20) mg/dL Glucose 123 H (74-99) mg/dL POC Glucose (mg/dL) 130 H 186 H (75-99) mg/dL Microbiology - Last 24 Hours (Table) 07/19/18 10:15 Blood Culture - Preliminary Blood No Growth after 24 hours Assessment and Plan Plan: Assessment and plan #1 hypoxia with evidence of mild congestive heart failure diastolic in nature, acute on chronic #2 diabetes #3 hypertension #4 hyperlipidemia #5 coronary artery involving the RCA and circumflex artery #6 PAD with prior peripheral interventions #7 history of nicotine dependence #8 GERD #9 COPD #10 recent periorbital cellulitis #11 also #disease #12 anemia plan We will discontinue the IV Lasix and start the patient on oral diuretics today. Review echocardiogram with Doppler study. Replace potassium. DNP note has been reviewed, I agree with a documented findings and plan of care. Patient was seen and examined.
[2018-07-21] MEDS: FUROSEMIDE 20 MG TAB PO SCH (12:32)
[2018-07-21] MEDS: TAMSULOSIN 0.4 MG CAP.ER.24H PO SCH (12:32)
[2018-07-21] MEDS: POTASSIUM CHLORIDE ER 20 MEQ TAB.ER PO SCH ×3 (12:32→17:35)
[2018-07-21 16:35] LABS: Glucose,Whole Blood 160 mg/dL (75-99)
[2018-07-21] MEDS: CLOPIDOGREL 75 MG TAB PO SCH (17:37)
[2018-07-21] MEDS: FERROUS SULFATE 325 MG TAB PO SCH (17:37)
[2018-07-21] MEDS: POTASSIUM CHLORIDE ER 10 MEQ TAB.ER.PRT PO SCH (17:38)
[2018-07-21] MEDS: LACTOBACILLUS ACIDOPH & BULGAR 1 EACH PACKET PO SCH (17:42)
[2018-07-21] MEDS: LISINOPRIL 10 MG TAB PO SCH (20:44)
[2018-07-21] MEDS: ASPIRIN 81 MG PO SCH (20:50)
[2018-07-21] MEDS: DONEPEZIL 10 MG TAB PO SCH (20:50)
[2018-07-21 21:06] LABS: Glucose,Whole Blood 146 mg/dL (75-99)
--- NOTE | 2018-07-21 21:41 | PN ---
PROGRESS NOTE DATE OF SERVICE: 07/21/18 PRESENTING COMPLAINT: Tired. INTERVAL HISTORY: This patient who is on IV antibiotics for right periorbital cellulitis, presented with acute CHF exacerbation, feeling a bit better. Ate a bit more today, bit more awake. Does feel tired. Cardiology did switch patient IV Lasix to p.o. Lasix. REVIEW OF SYSTEMS: Done for constitutional, cardiovascular, GI, pulmonary; relevant findings as above. CURRENT MEDICATIONS: Reviewed that include IV vancomycin, Zosyn and Lasix was switched over to p.o. EXAMINATION: Temperature 97.7, pulse 72, respiration 27, blood pressure 83/40, pulse ox 91 percent on high-flow oxygen. GENERAL APPEARANCE: Lying in bed, tired-appearing, awake. EYES:Pupils equal. Conjunctivae normal. HEENT: External appearance of nose and ears normal. Oral cavity dry. NECK: JVD unable to assess. Mass not palpable. RESPIRATORY: Effort increased. Lungs decreased breath sounds. CARDIOVASCULAR: First and second sounds normal. No edema. ABDOMEN: Soft, nontender. Liver and spleen not palpable. PSYCHIATRY: Awake, answering simple questions. INVESTIGATIONS: White count 8.8, hemoglobin 8.1, potassium 3.5, BUN 24, creatinine 1.20. Chest x-ray film reviewed by me shows venous prominence and some fluid in the fissure. ASSESSMENT: 1. Acute congestive heart failure exacerbation from diastolic dysfunction. Ejection fraction 55-60 percent with some improvement. 2. Acute periorbital cellulitis right eye with involvement of the christina rectus muscle from last admission. The patient to complete antibiotics tonight. 3. Chronic obstructive pulmonary disease in an ex-smoker. 4. Diabetes mellitus type 2 on oral hypoglycemic. 5. Hyperlipidemia. 6. Essential hypertension. 7. Coronary artery disease with prior history of myocardial infarction. 8. Primary osteoarthritis. 9. Mild to moderate cognitive impairment from late onset Alzheimer's dementia. 10.Macular degeneration. 11.Chronic gait dysfunction uses a walker. 12.Colonic diverticulosis. 13.Normocytic anemia cause unknown, being followed by Dr. Shelby. 14.Peripheral neuropathy secondary to diabetes. 15.Chronic urinary outflow obstruction. Patient has a Gal[place] catheter being followed by Dr. Milner. 16.Chronically occluded left internal carotid artery. 17.Acute hypoxic respiratory failure. Patient still requiring high-flow oxygen. PLAN: We will give the patient one more dose of IV Lasix tomorrow morning. We will check a BNP in the morning. We will also do CT scan of the chest without contrast high- resolution to check for underlying pulmonary fibrosis. Overall prognosis remains guarded. The patient is seen by Physical therapy today but just barely got up at the edge of the bed. MMODL / IJN: [id number] /
[2018-07-22] MEDS: PANTOPRAZOLE 40 MG TABLET PO SCH ×2 (05:38→17:11)
[2018-07-22 06:17] LABS: Glucose,Whole Blood 118 mg/dL (75-99)
[2018-07-22 06:34] LABS: Calcium 9.3 mg/dL (8.4-10.2); Potassium 4.6 mmol/L (3.5-5.1)
[2018-07-22] MEDS: SYMBICORT 80-4.5 MCG INHALER INHALATION SCH ×2 (09:07→20:54)
--- NOTE | 2018-07-22 09:22 | CT ---
EXAMINATION TYPE: CT chest wo con DATE OF EXAM: 07/22/2018 COMPARISON: 06/30/2018 HISTORY: pulm. fibrosis CT DLP: 298.[address] of the chest was performed with lung and mediastinal window settings submitted. The la ck of contrast limits evaluation of the vascular, mediastinal and parenchymal structures including th e upper abdomen. LUNGS: There are increasing patchy infiltrates throughout both lung malone greatest at the right lung base with small pleural effusions. This is superimposed upon the pulmonary fibrotic change moderatel y severe in degree. Correlate for pneumonia examination is limited with regards to evaluation pulmona ry nodules and/or masses. MEDIASTINUM/ALO: Thoracic aorta is of normal caliber with limited evaluation given lack of contrast . Atheromatous changes noted of the thoracic aorta. The heart is not enlarged. No evidence for media stinal mass. No lymph nodes greater than 1cm. UPPER ABDOMEN: No significant abnormality is seen. OTHER: No significant other abnormality. IMPRESSION: 1. Findings suggest moderately severe multifocal bilateral pneumonia underlying small pleural effusi on superimposed upon pulmonary fibrosis. Infiltrates of other etiology not excluded. Correlate clini cathleen and progress studies are recommended.
[2018-07-22] MEDS: TAMSULOSIN 0.4 MG CAP.ER.24H PO SCH (09:48)
[2018-07-22] MEDS: CITALOPRAM HYDROBROMIDE 20 MG TAB PO SCH (09:49)
[2018-07-22] MEDS: FUROSEMIDE 20 MG TAB PO SCH (09:49)
[2018-07-22] MEDS: GABAPENTIN 100 MG CAP PO SCH ×2 (09:49→17:12)
[2018-07-22] MEDS: metFORMIN 500 MG TAB PO SCH ×2 (09:50→17:12)
[2018-07-22] MEDS: METOPROLOL TARTRATE 25 MG TAB PO SCH ×2 (09:50→21:16)
[2018-07-22] MEDS: MEGESTROL 400 MG/10 ML CUP PO SCH (09:50)
--- NOTE | 2018-07-22 11:41 | P.PN ---
Subjective Progress Note Date: 07/22/18 This is a 72-year-old gentleman who follows with Dr. Covarrubias in the office. He has known history of diabetes, hypertension, hyperlipidemia, , coronary artery disease, PAD with prior peripheral intervention, he resides at an extended care facility.most of the patient's past medical history was taken from the medical record. According to the ER note, it was noted that the patient's oxygenation was down in the 50s. He denied any chest discomfort or palpitations at that time and according to staff did not very short of breath.chest x-ray on admission here revealed progressive changes with diffuse interstitial pattern on the basis of congestive heart failure, interstitial pneumonitis or atypical pneumonia.EKG shows normal sinus rhythm with no acute changes.blood pressure on arrival here 116/50, heart rate in the 80s, respirations 26, 94% on a 15% nonrebreather.blood pressure this morning 120/70 with a heart rate in the 90s, 94% on 15% slow.White blood cell count 8.8, hemoglobin 8.1, platelet count 372.sodium 139, potassium 3.5, BUN 24, creatinine 1.2.magnesium 1.9. Troponin 0.012, BNP level 1870.BNP level in January of this year 11,500.at the time of my examination this morning, patient is lying flat in bed, does not appear to be short of breath and denies any shortness of breath. No peripheral edema noted. 07/21/2018 Patient was seen and examined this morning, he did diurese well through the night last night. Potassium this morning 3.3. BUN 28 and creatinine 1.2. 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 Echo remains pending. 07/22/2018 Patient was seen and examined this morning, a CTA of the chest was performed, findings suggest moderately severe multifocal bilateral pneumonia with underlying small pleural effusion superimposed on pulmonary fibrosis. Blood pressure 90/50 with a heart rate in the 60s, 94% on 10 L of oxygen. Sodium 138 , potassium 4.8, BUN 39, creatinine 1.9. We will hold the Lasix and lisinopril today, repeat lytes in the morning. Objective - Vital Signs Vital signs: Vital Signs Temp 98.0 F 07/22/18 08:00 Pulse 85 07/22/18 08:00 Resp 21 07/22/18 08:00 BP 87/51 07/22/18 08:00 Pulse Ox 92 L 07/22/18 08:00 Intake & Output 07/21/18 07/22/18 07/22/18 18:59 06:59 18:59 Intake Total 480 220 Output Total 500 Balance 480 -500 220 Weight 71.1 kg 69 kg Intake: IV 20 Invasive Line 1 10 Invasive Line 2 10 Oral 480 200 Output: Urine 500 Other: Voiding Method Indwelling Catheter Indwelling Catheter Indwelling Catheter - Exam PHYSICAL EXAMINATION: GENERAL:72-year-old gentleman in no acute distress at the time of my examination HEENT: Head is atraumatic, normocephalic. Pupils equal, round. Sclera anicteric. Conjunctiva are clear. Mucous membranes of the mouth are moist. Neck is supple. There is no elevated jugular venous pressure. carotid bruit is heard. HEART EXAMINATION: [Heart S1, [id number] murmur heard.] CHEST EXAMINATION:[ Lungs are clear with fine crackles to bilateral bases. No chest wall tenderness is noted on palpation or with deep breathing.] ABDOMEN: [ Soft, nontender. Bowel sounds are heard. No organomegaly noted]. EXTREMITIES:[ 1+ peripheral pulses with no evidence of peripheral edema and no calf tenderness noted]. NEUROLOGIC [patient is awake, alert and oriented X1] . - Labs CBC & Chem 7: 07/20/18 06:12 07/22/18 06:05 Labs: Abnormal Lab Results - Last 24 Hours (Table) 07/21/18 07/21/18 07/21/18 Range/Units 11:38 16:31 20:58 BUN (9-20) mg/dL Creatinine (0.66-1.25) mg/dL Glucose (74-99) mg/dL POC Glucose (mg/dL) 186 H 160 H 146 H (75-99) mg/dL 07/22/18 07/22/18 Range/Units 05:57 06:05 BUN 39 H (9-20) mg/dL Creatinine 1.98 H (0.66-1.25) mg/dL Glucose 112 H (74-99) mg/dL POC Glucose (mg/dL) 118 H (75-99) mg/dL Microbiology - Last 24 Hours (Table) 07/19/18 10:15 Blood Culture - Preliminary Blood No Growth after 48 hours Assessment and Plan Plan: Assessment and plan #1 hypoxia with evidence of mild congestive heart failure diastolic in nature, acute on chronic #2 diabetes #3 hypertension #4 hyperlipidemia #5 coronary artery involving the RCA and circumflex artery #6 PAD with prior peripheral interventions #7 history of nicotine dependence #8 GERD #9 COPD #10 recent periorbital cellulitis #11 also #disease #12 anemia #13 pneumonia plan Patient's blood pressure in the 90s this morning, creatinine up to 1.9. We will hold the Lasix and lisinopril today check lytes BUN and creatinine in the morning, continue to monitor blood pressure. CT reveals bilateral multifocal pneumonia. On antibiotics. DNP note has been reviewed, I agree with a documented findings and plan of care. Patient was seen and examined.
[2018-07-22 11:56] LABS: Glucose,Whole Blood 156 mg/dL (75-99)
[2018-07-22 16:08] LABS: Glucose,Whole Blood 160 mg/dL (75-99)
--- NOTE | 2018-07-22 16:25 | ECHOF ---
Referral Reason:chf MEASUREMENTS -------- HEIGHT: 167.6 cm WEIGHT: 68.9 kg BP: 87/51 IVSd: 1.1 cm (0.6 - 1.1) LVIDd: 4.3 cm (3.9 - 5.3) LVPWd: 1.0 cm (0.6 - 1.1) IVSs: 1.7 cm LVIDs: 2.7 cm LVPWs: 1.3 cm LA Diam: 3.5 cm (2.7 - 3.8) RVIDd: 2.9 cm (< 3.3) Ao Diam: 3.1 cm (2.0 - 3.7) AV Cusp: 2.4 cm (1.5 - 2.6) EPSS: 1.8 cm MV E Rishabh: 0.84 m/s MV DecT: 273 ms MV A Rishabh: 0.95 m/s MV E/A Ratio: 0.88 RAP: 5.00 mmHg RVSP: 26.18 mmHg MV EF SLOPE: 56.47 mm/s (70 - 150) MV EXCURSION: 1.76 cm (> 18.000) FINDINGS -------- Sinus rhythm. This was a technically adequate study. The left ventricular size is normal. There is borderline concentric left ventricular hypertrophy. Overall left ventricular systolic function is normal with, an EF between 60 - 65 %. The right ventricle is normal in size. The left atrial size is normal. The right atrium is normal in size. The aortic valve was not well visualized. The mitral valve is normal. Mild tricuspid regurgitation present. Right ventricular systolic pressure is normal at < 35 mmHg. The pulmonic valve was not well visualized. The aortic root size is normal. Normal inferior vena cava with normal inspiratory collapse consistent with estimated right atrial pre ssure of 5 mmHg. There is no pericardial effusion. CONCLUSIONS -------- 1. Sinus rhythm. 2. This was a technically adequate study. 3. The left ventricular size is normal. 4. There is borderline concentric left ventricular hypertrophy. 5. Overall left ventricular systolic function is normal with, an EF between 60 - 65 %. 6. The right ventricle is normal in size. 7. The left atrial size is normal. 8. The right atrium is normal in size. 9. The aortic valve was not well visualized. 10. The mitral valve is normal. 11. Mild tricuspid regurgitation present. 12. Right ventricular systolic pressure is normal at < 35 mmHg. 13. The pulmonic valve was not well visualized. 14. The aortic root size is normal. 15. Normal inferior vena cava with normal inspiratory collapse consistent with estimated right atrial pressure of 5 mmHg. 16. There is no pericardial effusion. OVEREDGER: TRICIA Robles
[2018-07-22] MEDS: POTASSIUM CHLORIDE ER 10 MEQ TAB.ER.PRT PO SCH (17:11)
[2018-07-22] MEDS: CLOPIDOGREL 75 MG TAB PO SCH (17:12)
[2018-07-22] MEDS: LACTOBACILLUS ACIDOPH & BULGAR 1 EACH PACKET PO SCH (17:13)
[2018-07-22] MEDS: FERROUS SULFATE 325 MG TAB PO SCH (17:13)
--- NOTE | 2018-07-22 20:57 | PN ---
PROGRESS NOTE DATE OF SERVICE: 07/22/18. PRESENTING COMPLAINT: Tired. INTERVAL HISTORY: This is a patient who had 2 admissions recently for right periorbital cellulitis, completed his IV antibiotics yesterday. Admitted with acute CHF exacerbation. The patient is a bit more awake today, did eat some. The patient is still requiring high- flow oxygen. Because of blood pressure is running low, Lasix was discontinued. REVIEW OF SYSTEMS: Done for constitutional, cardiovascular, GI, pulmonary; relevant findings as above. CURRENT MEDICATIONS: Reviewed. Lasix was discontinued. PHYSICAL EXAMINATION: Temperature 98.2, pulse 85, respiratory 21, blood pressure 90/52, pulse ox 92 percent on 10 L. GENERAL APPEARANCE: Lying in bed, tired-appearing. EYES: Pupils equal. Conjunctivae normal. HEENT: External appearance of nose and ears normal. Oral cavity dry. NECK: JVD unable to assess. Mass not palpable. RESPIRATORY: Effort increased. Lungs: Decreased breath sounds, some crackles. CARDIOVASCULAR: First and second sounds, no edema. ABDOMEN: Soft, nontender. Liver and spleen not palpable. PSYCHIATRY: Answering some simple questions. INVESTIGATIONS: Potassium 4.6, BUN 39, creatinine 1.98. ASSESSMENT: 1. Acute congestive heart failure exacerbation from diastolic dysfunction, ejection fraction 55-60 percent, with slight improvement. 2. Acute periorbital cellulitis, right eye with involvement to the christina rectus muscle from last 2 admissions. He did complete his course of IV antibiotics yesterday. 3. Acute severe hypoxic respiratory failure requiring 10 L high-flow. I am suspicious the patient may be having a recurrent aspiration in spite of being on good coverage antibiotics, that has not improved and in fact, getting worse. 4. Chronic obstructive pulmonary disease in an ex-smoker. 5. Diabetes mellitus type 2 on oral hypoglycemic. 6. Hyperlipidemia. 7. Essential hypertension. 8. Coronary artery disease with prior history of myocardial infarction. 9. Primary osteoarthritis. 10.Mild to moderate cognitive impairment from late onset Alzheimer's dementia. 11.Macular degeneration. 12.Chronic gait dysfunction, uses a walker. 13.Chronic diverticulosis. 14.Normocytic anemia cause unknown, being followed by Dr. Shelby. 15.Peripheral neuropathy secondary to diabetes. 16.Chronic urinary outflow obstruction. The patient has a Gal[place] catheter, being followed by Dr. Milner. 17.Chronically occluded left internal carotid artery tree. 18.Stage II sacral decubitus ulcer informed to me by the nurse, present on admission. 19.Acute renal failure likely prerenal from diuresis, worsening. PLAN: Patient may be aspirating repeatedly antibiotic. The patient just finished 2 week course of antibiotics. Hence, will not give any further. There is no fever or white count. The patient may benefit from a bronchoscopy and lavage. Meantime, we will also do a modified barium swallow and get a pulmonary opinion. The patient's is not present today. The patient's renal function, of course, is worsening. MMODL / IJN: [id number] /
[2018-07-22] MEDS: ASPIRIN 81 MG PO SCH (21:16)
[2018-07-22] MEDS: DONEPEZIL 10 MG TAB PO SCH (21:16)
[2018-07-22 21:18] LABS: Glucose,Whole Blood 135 mg/dL (75-99)
[2018-07-23] MEDS: PANTOPRAZOLE 40 MG TABLET PO SCH ×2 (04:40→18:26)
[2018-07-23 07:09] LABS: Calcium 9.4 mg/dL (8.4-10.2); Potassium 5.2 mmol/L (3.5-5.1)
[2018-07-23] MEDS: SYMBICORT 80-4.5 MCG INHALER INHALATION SCH ×2 (08:43→20:24)
[2018-07-23] MEDS ORDERED: VANCOMYCIN IV PER PHARMACY 1 EACH MISC MISCELLANE PRN (11:39)
[2018-07-23 11:43] LABS: Glucose,Whole Blood 152 mg/dL (75-99)
[2018-07-23] MEDS ORDERED: MEROPENEM 1 GM in SODIUM CHLORIDE 0.9% 100 ML IVPB SCH (12:00)
[2018-07-23] MEDS ORDERED: VANCOMYCIN 1,250 MG in SODIUM CHLORIDE 0.9% 250 ML IVPB ONE (13:00)
--- NOTE | 2018-07-23 13:26 | P.PN ---
Subjective Progress Note Date: 07/23/18 This is a 72-year-old gentleman who follows with Dr. Covarrubias in the office. He has known history of diabetes, hypertension, hyperlipidemia, , coronary artery disease, PAD with prior peripheral intervention, he resides at an extended care facility.most of the patient's past medical history was taken from the medical record. According to the ER note, it was noted that the patient's oxygenation was down in the 50s. He denied any chest discomfort or palpitations at that time and according to staff did not very short of breath.chest x-ray on admission here revealed progressive changes with diffuse interstitial pattern on the basis of congestive heart failure, interstitial pneumonitis or atypical pneumonia.EKG shows normal sinus rhythm with no acute changes.blood pressure on arrival here 116/50, heart rate in the 80s, respirations 26, 94% on a 15% nonrebreather.blood pressure this morning 120/70 with a heart rate in the 90s, 94% on 15% slow.White blood cell count 8.8, hemoglobin 8.1, platelet count 372.sodium 139, potassium 3.5, BUN 24, creatinine 1.2.magnesium 1.9. Troponin 0.012, BNP level 1870.BNP level in January of this year 11,500.at the time of my examination this morning, patient is lying flat in bed, does not appear to be short of breath and denies any shortness of breath. No peripheral edema noted. 07/21/2018 Patient was seen and examined this morning, he did diurese well through the night last night. Potassium this morning 3.3. BUN 28 and creatinine 1.2. We will discontinue the IV Lasix this afternoon and exchange architect to oral diuretics. Echo remains pending. 07/22/2018 Patient was seen and examined this morning, a CTA of the chest was performed, findings suggest moderately severe multifocal bilateral pneumonia with underlying small pleural effusion superimposed on pulmonary fibrosis. Blood pressure 90/50 with a heart rate in the 60s, 94% on 10 L of oxygen. Sodium 138 , potassium 4.8, BUN 39, creatinine 1.9. We will hold the Lasix and lisinopril today, repeat lytes in the morning. 07/23/2018 seen and examined this morning, Blood pressure 108/50 with a heart rate in the 70s, 92% on 10 L of high flow.sodium 139, potassium 5.2, BUN 51, creatinine 2.5.diuretics are currently on hold. Objective - Vital Signs Vital signs: Vital Signs Temp 97.9 F 07/23/18 08:00 Pulse 74 07/23/18 08:00 Resp 20 07/23/18 03:54 BP 108/52 07/23/18 08:00 Pulse Ox 87 L 07/23/18 08:00 Intake & Output 07/22/18 07/23/18 07/23/18 18:59 06:59 18:59 Intake Total 470 30 Output Total 525 225 Balance -55 -195 Weight 68 kg Intake: IV 70 30 Invasive Line 1 30 Invasive Line 2 40 30 Oral 400 Output: Urine 525 225 Uretheral (Galicia) 525 225 Other: Voiding Method Indwelling Catheter Indwelling Catheter Indwelling Catheter # Bowel Movements 1 - Exam PHYSICAL EXAMINATION: GENERAL:72-year-old gentleman in no acute distress at the time of my examination HEENT: Head is atraumatic, normocephalic. Pupils equal, round. Sclera anicteric. Conjunctiva are clear. Mucous membranes of the mouth are moist. Neck is supple. There is no elevated jugular venous pressure. carotid bruit is heard. HEART EXAMINATION: [Heart S1, [id number] murmur heard.] CHEST EXAMINATION:[ Lungs are clear with fine crackles to bilateral bases. No chest wall tenderness is noted on palpation or with deep breathing.] ABDOMEN: [ Soft, nontender. Bowel sounds are heard. No organomegaly noted]. EXTREMITIES:[ 1+ peripheral pulses with no evidence of peripheral edema and no calf tenderness noted]. NEUROLOGIC [patient is awake, alert and oriented X1] . - Labs CBC & Chem 7: 07/20/18 06:12 07/23/18 05:51 Labs: Abnormal Lab Results - Last 24 Hours (Table) 07/22/18 07/22/18 07/23/18 Range/Units 16:05 21:16 05:51 Potassium 5.2 H (3.5-5.1) mmol/L BUN 51 H (9-20) mg/dL Creatinine 2.54 H (0.66-1.25) mg/dL Glucose 107 H (74-99) mg/dL POC Glucose (mg/dL) 160 H 135 H (75-99) mg/dL 07/23/18 Range/Units 11:41 Potassium (3.5-5.1) mmol/L BUN (9-20) mg/dL Creatinine (0.66-1.25) mg/dL Glucose (74-99) mg/dL POC Glucose (mg/dL) 152 H (75-99) mg/dL Microbiology - Last 24 Hours (Table) 07/19/18 10:15 Blood Culture - Preliminary Blood No Growth after 96 hours Assessment and Plan Plan: Assessment and plan #1 hypoxia with evidence of mild congestive heart failure diastolic in nature, acute on chronic #2 diabetes #3 hypertension #4 hyperlipidemia #5 coronary artery involving the RCA and circumflex artery #6 PAD with prior peripheral interventions #7 history of nicotine dependence #8 GERD #9 COPD #10 recent periorbital cellulitis #11 also #disease #12 anemia #13 pneumonia plan We'll continue to hold the patient's diuretics and lisinopril today. We will give some IV fluids, check lytes BUN and creatinine in the morning. DNP note has been reviewed, I agree with a documented findings and plan of care. Patient was seen and examined.
[2018-07-23] MEDS: TAMSULOSIN 0.4 MG CAP.ER.24H PO SCH (14:40)
[2018-07-23] MEDS: METOPROLOL TARTRATE 25 MG TAB PO SCH ×2 (14:41→20:58)
[2018-07-23] MEDS: GABAPENTIN 100 MG CAP PO SCH ×2 (14:41→18:26)
[2018-07-23] MEDS: MEGESTROL 400 MG/10 ML CUP PO SCH (14:41)
[2018-07-23] MEDS: CITALOPRAM HYDROBROMIDE 20 MG TAB PO SCH (14:41)
[2018-07-23] MEDS: SODIUM CHLORIDE 0.9% 1,000 ML IV SCH ×2 (14:42→20:58)
[2018-07-23] MEDS: metFORMIN 500 MG TAB PO SCH (15:12)
[2018-07-23 17:03] LABS: Glucose,Whole Blood 112 mg/dL (75-99)
--- NOTE | 2018-07-23 17:08 | P.CNPUL ---
History of Present Illness Consult date: 07/23/18 Reason for consult: dyspnea, pneumonia History of present illness: A 69-year-old male patient, assisted resident, who came into the hospital because of worsening shortness of breath. Because of his declining pressors status of Pulmicort and station was requested. The patient has had multiple hospitalizations. He was in the hospital last on 06/30/2018 and he was discharged on 07/02/2018. He was subsequently admitted on 07/06/2018 and discharged on 07/09/2018. His previous admissions related to treatment of a periorbital cellulitis for which she was given antibiotics and he responded very nicely. The patient was discharged on 07/09/2018 on a combination of Zosyn and vancomycin and he was released tomorrow with for further rehabilitation. However, he is not seeming to be a rehab candidate and the patient may likely stay there on a permanent basis at assisted. He is known to have COPD. No still pulmonary fibrosis at [facility]. He is known to have diabetes mellitus, hyperlipidemia and hypertension coronary artery disease and hypothyroidism. His is very much involved in this care. The patient has been reported to have on and off difficulty with swallowing special with liquidy material. The felt that at times. Aspirated on food material. During this current admission, the patient comes in for increased shortness of breath. He was placed on IV Lasix and subsequently he became prerenal in the creatinine came up to 2.54 on diuretics have been stopped. He is on no antibiotics for now. I reviewed the scan of the chest that was done yesterday and showed emphysema and multifocal bilateral pneumonia with small bilateral pleural effusion. The pneumonia is worsening lower lobes more so on the right. Heart is not enlarged. There is no mediastinal lymphadenopathy. Going back on previous admissions, the patient wasn't hospital on 06/09/2018 and he was infected in the urine with a Pneumonia That Was a ESBL Producing Organism. The Subsequent Blood Cultures Following That Has Been All Negative. He Also Had a White Cell Count of 8.8. Hemoglobin Stable at 8.1. He Is Currently on 10 L of Oxygen by Nasal Cannula. His Pulse Ox Is 89-90%. He Is Afebrile. Review of Systems Constitutional: Reports fatigue, Reports lethargy, Reports poor appetite, Reports weakness Eyes: denies blurred vision, denies bulging eye, denies decreased vision Ears: right: earache, bilateral: decreased hearing, deny: ear discharge Ears, nose, mouth and throat: Reports as per HPI (Recent periorbital cellulitis from which the patient has recovered.), Denies headache, Denies sore throat Cardiovascular: Reports decreased exercise tolerance, Reports dyspnea on exertion, Reports shortness of breath Respiratory: Reports cough with sputum, Reports dyspnea, Reports excessive sputum Gastrointestinal: Denies abdominal pain, Denies diarrhea, Denies nausea, Denies vomiting Genitourinary: Reports as per HPI Musculoskeletal: Reports frequent falls, Reports gait dysfunction, Reports muscle weakness Musculoskeletal: absent: ankle pain, ankle stiffness, ankle swelling Integumentary: Denies pruritus, Denies rash Neurological: Reports ataxia, Reports balance difficulties, Reports change in mentation, Reports confusion, Reports gait dysfunction, Reports lack of coordination, Reports memory loss, Reports weakness Psychiatric: Reports confusion Endocrine: Denies fatigue, Denies weight change Hematologic/Lymphatic: Reports as per HPI Allergic/Immunologic: Reports as per HPI Past Medical History Past Medical History: Asthma, Heart Failure, COPD, CVA/TIA, Dementia, Diabetes Mellitus, Eye Disorder, GERD/Reflux, Hyperlipidemia, Hypertension, Myocardial Infarction (NC), Osteoarthritis (OA), Pneumonia, Prostate Disorder, Thyroid Disorder, Vascular Disorder Additional Past Medical History / Comment(s): Several bouts periorbital cellulitis, spouse state that pts general health has been declining over the past few weeks with increased forgetfulness/weakness/falls, pt now stands with staff and gets into wheelchair, unexplained weight loss, wound on coccyx and spouse states wound to R knee is now scabbed over and R foot wound is healed, macular degeneration R eye, BPH with urine outlfow obstruction-recently had TURP and hadley discontinued and reinserted and spouse states hadley to remain in now, NIDDM type II, neuropathy bilateral hands/feet, TIA, cardiac murmur, PVD, caratid disease, macrocytic anemia-followed by Dr. Shelby, hiatal hernia, diverticular disease, hypothyroid. Last Myocardial Infarction Date:: 1996 History of Any Multi-Drug Resistant Organisms: ESBL Date of last positivie culture/infection: 06/09/18 ESBL-Klebsiella MDRO Source:: Urine Past Surgical History: Orthopedic Surgery, Prostate Surgery Additional Past Surgical History / Comment(s): 06/17/18 TURP, ANA AORTAGRAM WITH ANA STENTS. , LEFT SHOULDER WITH HARDWARE ( HARDWARE REMOVED) , LEFT KNEE ligament repair. colonocopy , FASCIOTOMY OF RIGHT CALF, egd w/bx., piccline lt arm 10-09-17 Past Anesthesia/Blood Transfusion Reactions: No Reported Reaction Smoking Status: Former smoker - Past Family History Sister(s) Family Medical History: Cancer Additional Family Medical History / Comment(s): Lung Cancer Mother Family Medical History: No Reported History Additional Family Medical History / Comment(s): from "natural causes" Father Family Medical History: Coronary Artery Disease (CAD), Diabetes Mellitus, Myocardial Infarction (NC) Medications and Allergies Home Medications Medication Instructions Recorded Confirmed Type Clopidogrel [Plavix] 75 mg PO DAILY@169906/22/15 07/19/18 History Omeprazole [PriLOSEC] 20 mg PO BID@0600,0 12/18/17 07/19/18 History Aspirin EC [Ecotrin Low Dose] 81 mg PO HS@209901/29/18 07/19/18 History Ferrous Sulfate [Iron (65 MG 325 mg PO DAILY@169902/15/18 07/19/18 History Elemental)] Fosinopril Sodium 10 mg PO HS@209902/15/18 07/19/18 History Glucerna Shake 120 ml PO TID@0800,1400,199902/15/18 07/19/18 History Metoprolol Tartrate [Lopressor] 25 mg PO BID@0800,2100 02/15/18 07/19/18 History Potassium Chloride [Klor-Con 10] 10 meq PO DAILY@0 02/26/18 07/19/18 History Fluticasone/Salmeterol [Advair 1 puff INHALATION RT-BID 04/14/18 07/19/18 History 100-50 Diskus] Bisacodyl [Dulcolax] 10 mg RECTAL DAILY PRN 06/16/18 07/19/18 History Gabapentin [Neurontin] 200 mg PO BID@0800,1700 06/16/18 07/19/18 History Tamsulosin HCl [Flomax] 0.8 mg PO DAILY@1200 06/16/18 07/19/18 History INSULIN LISPRO (HumaLOG) [humaLOG] See Protocol SQ ACHS 06/29/18 07/19/18 History Lactulose 10 gm PO BID PRN 06/29/18 07/19/18 History metFORMIN HCL [Glucophage] 500 mg PO BID@0800,1700 06/29/18 07/19/18 History Citalopram Hydrobromide [CeleXA] 20 mg PO DAILY@0800 07/06/18 07/19/18 History Donepezil [Aricept] 10 mg PO DAILY@2100 07/06/18 07/19/18 History Magnesium Hydroxide [Milk of 2,400 mg PO DAILY PRN 07/06/18 07/19/18 History Magnesia] Na Phos,M-B/Na Phos,Di-Ba [Fleet 133 ml RECTAL DAILY PRN 07/06/18 07/19/18 History Adult] LORazepam [Ativan] 0.5 mg PO Q8H PRN #7 tab 07/09/18 07/19/18 Rx Megestrol [Megace] 400 mg PO DAILY #3 cup 07/09/18 07/19/18 Rx Piperacillin Sodium/Tazobactam 4.5 gm IVPB Q8HR #42 bag 07/09/18 07/19/18 Rx [Zosyn] Vancomycin 1,250 mg IVPB Q12HR #28 bag 07/09/18 07/19/18 Rx Lactobacillus Acidophilus 1 tab PO DAILY@1700 07/19/18 07/19/18 History [Acidophilus] Allergies Allergy/AdvReac Type Severity Reaction Status Date / Time No Known Allergies Allergy Verified 07/19/18 10:48 Physical Exam Vitals: Vital Signs Temp Pulse Resp BP Pulse Ox 07/23/18 12:00 77 99/53 89 L 07/23/18 08:00 97.9 F 74 108/52 87 L 07/23/18 03:54 97.9 F 75 20 99/56 92 L 07/23/18 03:13 79 20 07/23/18 00:00 98 F 79 20 100/55 91 L 07/22/18 20:54 93 L 07/22/18 20:00 98 F 80 20 99/52 91 L Intake and Output 07/23/18 07/23/18 07/23/18 06:59 14:59 22:59 Intake Total 20 Output Total 150 500 Balance -130 -500 Intake: IV 20 Invasive Line 2 20 Output: Urine 150 500 Uretheral (Hadley) 150 Other: Voiding Method Indwelling Catheter Indwelling Catheter # Bowel Movements 1 Weight 68 kg Results - Laboratory Findings CBC and BMP: 07/20/18 06:12 07/23/18 05:51 PT/INR, D-dimer PT 11.2 sec (9.0-12.0) 07/19/18 10:15 INR 1.2 (<1.2) H 07/19/18 10:15 Abnormal lab findings: Abnormal Labs 07/19/18 07/19/18 07/19/18 10:15 10:15 10:15 RBC 2.50 L Hgb 8.5 L Hct 25.5 L MCV 101.9 H Lymphocytes # 0.8 L INR Sodium Potassium Chloride 112 H Carbon Dioxide 20 L BUN 25 H Creatinine Glucose 123 H POC Glucose (mg/dL) AST 11 L Total Creatine Kinase <20 L Total Protein 5.2 L Albumin 2.2 L 07/19/18 07/19/18 07/20/18 10:15 21:54 05:54 RBC Hgb Hct MCV Lymphocytes # INR 1.2 H Sodium Potassium Chloride Carbon Dioxide BUN Creatinine Glucose POC Glucose (mg/dL) 105 H 112 H AST Total Creatine Kinase Total Protein Albumin 07/20/18 07/20/18 07/20/18 06:12 06:12 11:35 RBC 2.57 L Hgb 8.1 L Hct 25.9 L MCV 100.6 H Lymphocytes # 0.7 L INR Sodium Potassium Chloride Carbon Dioxide BUN 24 H Creatinine Glucose 102 H POC Glucose (mg/dL) 159 H AST Total Creatine Kinase Total Protein Albumin 07/20/18 07/20/18 07/21/18 16:56 20:48 05:23 RBC Hgb Hct MCV Lymphocytes # INR Sodium 135 L Potassium 3.3 L Chloride Carbon Dioxide BUN 28 H Creatinine Glucose 123 H POC Glucose (mg/dL) 174 H 236 H AST Total Creatine Kinase Total Protein Albumin 07/21/18 07/21/18 07/21/18 06:15 11:38 16:31 RBC Hgb Hct MCV Lymphocytes # INR Sodium Potassium Chloride Carbon Dioxide BUN Creatinine Glucose POC Glucose (mg/dL) 130 H 186 H 160 H AST Total Creatine Kinase Total Protein Albumin 07/21/18 07/22/18 07/22/18 20:58 05:57 06:05 RBC Hgb Hct MCV Lymphocytes # INR Sodium Potassium Chloride Carbon Dioxide BUN 39 H Creatinine 1.98 H Glucose 112 H POC Glucose (mg/dL) 146 H 118 H AST Total Creatine Kinase Total Protein Albumin 07/22/18 07/22/18 07/22/18 11:41 16:05 21:16 RBC Hgb Hct MCV Lymphocytes # INR Sodium Potassium Chloride Carbon Dioxide BUN Creatinine Glucose POC Glucose (mg/dL) 156 H 160 H 135 H AST Total Creatine Kinase Total Protein Albumin 07/23/18 07/23/18 05:51 11:41 RBC Hgb Hct MCV Lymphocytes # INR Sodium Potassium 5.2 H Chloride Carbon Dioxide BUN 51 H Creatinine 2.54 H Glucose 107 H POC Glucose (mg/dL) 152 H AST Total Creatine Kinase Total Protein Albumin - Diagnostic Findings Chest x-ray: image reviewed CT scan - chest: image reviewed Assessment and Plan Plan: Assessment 1 acute bilateral pneumonia, suspect gram-negative pneumonia with diffuse consolidation lower lobes bilaterally. Consideration is to be given for a gram- negative ESBL producing organisms knowing that the patient has been infected with this in the past and the patient had a ESBL producing Klebsiella pneumoniae in the urine. 2 acute hypoxic respiratory failure secondary to above currently on high flow oxygen at 10 L per minute there is a cannula 3 high aspiration risk 4 dementia with impairment in cognitive functions and significant debility and impairment of the performance and functional status 5 history of CVA/TIA 6 coronary artery disease with previous [place] 7 recent hospitalization for periorbital cellulitis, recovered 8 on explained weight loss 9 macular degeneration 10 BPH 11 diabetes mellitus type 2 12 peripheral neuropathy 13 peripheral vascular disease 14 diverticular disease 15 hypothyroidism 16 assisted resident Plan We'll need to broaden antibiotic coverage. The patient will be asked to be maintained on 10 L of oxygen by nasal cannula. Aggressive pulmonary toileting. Sputum Gram stain culture if possible. Broaden antibiotic coverage to include a combination of Merrem and vancomycin. This will give the patient a extended gram-negative coverage including ESBL producing organisms and anaerobic coverage. Vancomycin will continue covering any potential staphylococcal pneumonia. Continue rest of the outpatient medications. Unfortunately the prognosis poor baseline above-mentioned comorbidities. Family is at the bedside and they are aware of. His CODE STATUS is DNR/DNI. We 'll continue to follow make further recommendations based on his progress. Continue all of the outpatient medications.
[2018-07-23] MEDS: CLOPIDOGREL 75 MG TAB PO SCH (18:26)
[2018-07-23] MEDS: FERROUS SULFATE 325 MG TAB PO SCH (18:26)
[2018-07-23] MEDS: POTASSIUM CHLORIDE ER 10 MEQ TAB.ER.PRT PO SCH (18:26)
[2018-07-23] MEDS: LACTOBACILLUS ACIDOPH & BULGAR 1 EACH PACKET PO SCH (18:27)
[2018-07-23 20:27] LABS: Glucose,Whole Blood 188 mg/dL (75-99)
[2018-07-23] MEDS: DONEPEZIL 10 MG TAB PO SCH (20:58)
[2018-07-23] MEDS: ASPIRIN 81 MG PO SCH (20:58)
--- NOTE | 2018-07-23 21:58 | PN ---
PROGRESS NOTE DATE OF SERVICE: 07/23/2018 PRESENTING COMPLAINT: Tired. INTERVAL HISTORY: This is a patient who had 2 recent admissions for right periorbital cellulitis. He did complete his course of IV antibiotics on 07/21/2018. He also had acute CHF exacerbation and was doing better from that standpoint, and then he started going into acute renal failure and acute respiratory failure with worsening pneumonia. Patient is tolerating a little bit of diet. Does feel weak and tired. REVIEW OF SYSTEMS: Done for constitutional, cardiovascular, GI, pulmonary; relevant findings as above. CURRENT MEDICATIONS: Reviewed. They include vancomycin and meropenem started today by Pulmonary. PHYSICAL EXAMINATION: Temperature 97.9, pulse 74, respiration 20, blood pressure 108/52, pulse ox 87% on 10 L high-flow. GENERAL APPEARANCE: Lying in bed, tired-appearing. EYES: Pupils equal. Conjunctivae normal. HEENT: External appearance of nose and ears normal. Oral cavity dry. NECK: JVD unable to assess. Mass not palpable. RESPIRATORY: Effort increased. LUNGS: Decreased breath sounds. Some crackles. CARDIOVASCULAR: First and second sounds normal. No edema. ABDOMEN: Soft, non-tender. Liver and spleen not palpable. PSYCHIATRY: Awake. Answering simple questions. INVESTIGATIONS: Potassium 5.2, BUN 51, creatinine 2.54. ASSESSMENT: 1. Acute congestive heart failure exacerbation from diastolic dysfunction, ejection fraction 55% to 60%, now stabilized. 2. Acute periorbital cellulitis of the right eye with involvement of the christina rectus muscle from last admission. Did complete course of his antibiotics on 07/21/2018. 3. Acute severe hypoxic respiratory failure requiring 10 L of high-flow oxygen with bilateral worsening pneumonia; could be silent aspiration, not improving. 4. Chronic obstructive pulmonary disease in an ex-smoker. 5. Diabetes mellitus, type 2, on oral hypoglycemic. 6. Hyperlipidemia. 7. Essential hypertension. 8. Coronary artery disease with prior history of myocardial infarction. 9. Primary osteoarthritis. 10.Mild to moderate cognitive impairment from late-onset Alzheimer's dementia. 11.Macular degeneration. 12.Chronic gait dysfunction. Uses a walker. 13.Chronic diverticulosis. 14.Normocytic anemia, cause unknown, being followed by Dr. Shelby. 15.Peripheral neuropathy secondary to diabetes. 16.Chronic urinary outflow obstruction. Patient has a [place] catheter, being followed by Dr. Milner. 17.Chronically occluded left internal carotid artery. 18.Stage II sacral decubitus ulcer, present on admission. 19.Acute renal failure, likely prerenal, from diuresis, worsening. PLAN: Overall prognosis is not good in a patient seen by Pulmonary, started on meropenem and vancomycin. Given the renal failure, we will discontinue the vancomycin and switch to meropenem. Patient's is not at the bedside. The patient did have a modified barium swallow that showed no obvious aspiration, with only some minimal transient penetration with one trial. Patient remains at high risk for aspiration. Patient was started on normal saline by Cardiology in view of the renal failure. MMODL / IJN: [id number] /
[2018-07-23] MEDS: MEROPENEM 1 GM in SODIUM CHLORIDE 0.9% 100 ML IVPB SCH (23:31)
[2018-07-24 06:13] LABS: Glucose,Whole Blood 119 mg/dL (75-99)
[2018-07-24] MEDS: PANTOPRAZOLE 40 MG TABLET PO SCH ×2 (06:46→17:56)
[2018-07-24 06:57] LABS: Calcium 9.4 mg/dL (8.4-10.2); Potassium 5.4 mmol/L (3.5-5.1)
[2018-07-24] MEDS: CITALOPRAM HYDROBROMIDE 20 MG TAB PO SCH (08:16)
[2018-07-24] MEDS: TAMSULOSIN 0.4 MG CAP.ER.24H PO SCH (08:16)
[2018-07-24] MEDS: SODIUM CHLORIDE 0.9% 1,000 ML IV SCH ×2 (08:16→21:41)
[2018-07-24] MEDS: METOPROLOL TARTRATE 25 MG TAB PO SCH ×2 (08:16→21:40)
[2018-07-24] MEDS: GABAPENTIN 100 MG CAP PO SCH ×2 (08:16→17:56)
[2018-07-24] MEDS: MEGESTROL 400 MG/10 ML CUP PO SCH (08:28)
[2018-07-24] MEDS ORDERED: DAPTOmycin 500 MG in SODIUM CHLORIDE 0.9% 50 ML IVPB SCH (09:00)
[2018-07-24] MEDS: SYMBICORT 80-4.5 MCG INHALER INHALATION SCH ×2 (09:07→20:00)
[2018-07-24] MEDS ORDERED: VANCOMYCIN IV PER PHARMACY 1 EACH MISC MISCELLANE PRN (10:42)
[2018-07-24] MEDS: MEROPENEM 1 GM in SODIUM CHLORIDE 0.9% 100 ML IVPB SCH ×2 (11:44→23:47)
[2018-07-24] MEDS ORDERED: VANCOMYCIN 1,250 MG in SODIUM CHLORIDE 0.9% 250 ML IVPB ONE ×4 (12:00)
[2018-07-24 12:03] LABS: Glucose,Whole Blood 257 mg/dL (75-99)
--- NOTE | 2018-07-24 12:18 | XR ---
EXAMINATION TYPE: XR chest 1V DATE OF EXAM: 07/24/2018 HISTORY: pneumonia. REFERENCE: Previous study dated 07/21/2018. FINDINGS: There is worsening interstitial change present bilaterally. Heart size upper limits of norm al. There are developed bilateral effusions. There is confluent air space disease at both lung bases. IMPRESSION: 1. WORSENING INTERSTITIAL AND CONFLUENT AIRSPACE DISEASE BILATERALLY. 2. BILATERAL EFFUSIONS. 3. DIFFERENTIAL DIAGNOSIS INCLUDES PULMONARY EDEMA AND ATYPICAL PNEUMONIA.
--- NOTE | 2018-07-24 15:33 | P.PN ---
Subjective Progress Note Date: 07/24/18 A 69-year-old male patient, senior care resident, who came into the hospital because of worsening shortness of breath. Because of his declining pressors status of Pulmicort and station was requested. The patient has had multiple hospitalizations. He was in the hospital last on 06/30/2018 and he was discharged on 07/02/2018. He was subsequently admitted on 07/06/2018 and discharged on 07/09/2018. His previous admissions related to treatment of a periorbital cellulitis for which she was given antibiotics and he responded very nicely. The patient was discharged on 07/09/2018 on a combination of Zosyn and vancomycin and he was released tomorrow with for further rehabilitation. However, he is not seeming to be a rehab candidate and the patient may likely stay there on a permanent basis at senior care. He is known to have COPD. No still pulmonary fibrosis at [facility]. He is known to have diabetes mellitus, hyperlipidemia and hypertension coronary artery disease and hypothyroidism. His is very much involved in this care. The patient has been reported to have on and off difficulty with swallowing special with liquidy material. The felt that at times. Aspirated on food material. During this current admission, the patient comes in for increased shortness of breath. He was placed on IV Lasix and subsequently he became prerenal in the creatinine came up to 2.54 on diuretics have been stopped. He is on no antibiotics for now. I reviewed the scan of the chest that was done yesterday and showed emphysema and multifocal bilateral pneumonia with small bilateral pleural effusion. The pneumonia is worsening lower lobes more so on the right. Heart is not enlarged. There is no mediastinal lymphadenopathy. Going back on previous admissions, the patient wasn't hospital on 06/09/2018 and he was infected in the urine with a Pneumonia That Was a ESBL Producing Organism. The Subsequent Blood Cultures Following That Has Been All Negative. He Also Had a White Cell Count of 8.8. Hemoglobin Stable at 8.1. He Is Currently on 10 L of Oxygen by Nasal Cannula. His Pulse Ox Is 89-90%. He Is Afebrile. On today's evaluation of 07/24/2018, the patient is being seen for a follow-up. Essentially the same compared to yesterday. Probably slightly better. I have him on a combination of Merrem and vancomycin covering extended gram- negative bacteria and staph. He still on 10 L of oxygen by nasal cannula. He has a weak cough. Unable to bring up much of sputum. Nevertheless there is no worsening his breathing status of shortness of breath over the past 24 hours. His renal function is stable. Creatinine is down to 2.1 and the patient has been taken off diuretics which has caused some prerenal azotemia. Objective - Vital Signs Vital signs: Vital Signs Temp 97 F L 07/24/18 08:00 Pulse 61 07/24/18 12:00 Resp 18 07/24/18 12:00 BP 96/47 07/24/18 12:00 Pulse Ox 92 L 07/24/18 12:00 Intake & Output 07/23/18 07/24/18 07/24/18 18:59 06:59 18:59 Intake Total 200 Output Total 500 0 300 Balance -500 0 -100 Weight 67 kg Intake: Oral 200 Output: Urine 500 0 300 Other: Voiding Method Indwelling Catheter Indwelling Catheter Indwelling Catheter # Voids 0 # Bowel Movements 1 - Exam Gen. appearance, comfortable likely distress currently on 2 L about 2 by nasal cannula, resting comfortably in bed Head exam was generally normal. There was no scleral icterus or corneal arcus. Mucous membranes were moist. HEENT: Head is atraumatic, normocephalic. Pupils equal, round. Sclera anicteric. Conjunctiva are clear. Mucous membranes of the mouth are moist. Neck is supple. There is no elevated jugular venous pressure. carotid bruit is heard. HEART EXAMINATION: Cardiac exam revealed the PMI to be normally situated and sized. The rhythm was regular and no extrasystoles were noted during several minutes of auscultation. The first and second heart sounds were normal and physiologic splitting of the second heart sound was noted. There were no murmurs , rubs, clicks, or gallops. CHEST EXAMINATION:[ Lungs are clear with fine crackles to bilateral bases. No chest wall tenderness is noted on palpation or with deep breathing.] ABDOMEN: Abdominal exam revealed normal bowel sounds. The abdomen was soft, non- tender, and without masses, organomegaly, or appreciable enlargement of the abdominal aorta. EXTREMITIES:[ 1+ peripheral pulses with no evidence of peripheral edema and no calf tenderness noted]. NEUROLOGIC [patient is awake, alert and oriented X1] Examination of the skin revealed no evidence of significant rashes, suspicious appearing nevi or other concerning lesions. - Labs CBC & Chem 7: 07/20/18 06:12 07/24/18 06:11 Labs: Abnormal Lab Results - Last 24 Hours (Table) 07/23/18 07/23/18 07/24/18 Range/Units 17:01 20:26 06:11 Potassium 5.4 H (3.5-5.1) mmol/L Chloride 112 H (98-107) mmol/L BUN 52 H (9-20) mg/dL Creatinine 2.17 H (0.66-1.25) mg/dL POC Glucose (mg/dL) 112 H 188 H (75-99) mg/dL 07/24/18 07/24/18 Range/Units 06:11 11:52 Potassium (3.5-5.1) mmol/L Chloride (98-107) mmol/L BUN (9-20) mg/dL Creatinine (0.66-1.25) mg/dL POC Glucose (mg/dL) 119 H 257 H (75-99) mg/dL Microbiology - Last 24 Hours (Table) 07/19/18 10:15 Blood Culture - Preliminary Blood No Growth after 120 hours Assessment and Plan Plan: Assessment 1 acute bilateral pneumonia, suspect gram-negative pneumonia with diffuse consolidation lower lobes bilaterally. Consideration is to be given for a gram- negative ESBL producing organisms knowing that the patient has been infected with this in the past and the patient had a ESBL producing Klebsiella pneumoniae in the urine. 2 acute hypoxic respiratory failure secondary to above currently on high flow oxygen at 10 L per minute there is a cannula 3 high aspiration risk 4 dementia with impairment in cognitive functions and significant debility and impairment of the performance and functional status 5 history of CVA/TIA 6 coronary artery disease with previous [place] 7 recent hospitalization for periorbital cellulitis, recovered 8 unexplained weight loss 9 macular degeneration 10 BPH 11 diabetes mellitus type 2 12 peripheral neuropathy 13 peripheral vascular disease 14 diverticular disease 15 hypothyroidism 16 senior care resident Plan Renal function is improving. Keep the patient on diuretics. Continue Merrem and vancomycin. Repeat chest x-ray in the morning. Attempt to wean down the FiO2 if possible to maintain a saturation above 90%. Aspiration precautions. Continue to follow.
[2018-07-24 17:16] LABS: Glucose,Whole Blood 105 mg/dL (75-99)
[2018-07-24] MEDS: POTASSIUM CHLORIDE ER 10 MEQ TAB.ER.PRT PO SCH (17:16)
[2018-07-24] MEDS: LACTOBACILLUS ACIDOPH & BULGAR 1 EACH PACKET PO SCH (17:56)
[2018-07-24] MEDS: FERROUS SULFATE 325 MG TAB PO SCH (17:56)
[2018-07-24] MEDS: CLOPIDOGREL 75 MG TAB PO SCH (17:56)
[2018-07-24 20:24] LABS: Glucose,Whole Blood 270 mg/dL (75-99)
[2018-07-24] MEDS: DONEPEZIL 10 MG TAB PO SCH (21:40)
[2018-07-24] MEDS: guaiFENesin 600 MG TABLET.ER PO SCH (21:40)
[2018-07-24] MEDS: ASPIRIN 81 MG PO SCH (21:40)
--- NOTE | 2018-07-24 23:14 | PN ---
PROGRESS NOTE DATE OF SERVICE: 07/24/2018. PRESENTING COMPLAINT: Tired. INTERVAL HISTORY: This is a patient who had two recent admissions for right periorbital cellulitis. Did complete his course of antibiotics on 07/21/2018. Patient this time presented with acute CHF exacerbation. Then was doing better. Then patient went into acute renal failure and acute respiratory failure with worsening pneumonia. The patient's current antibiotics include IV meropenem. I started the patient on daptomycin yesterday but discontinued the same because of poor penetration after discussion with Dr. Ca. The patient also on vancomycin. The patient remains on high-flow oxygen. Did eat a little bit. Remains in bed, weak and tired. REVIEW OF SYSTEMS: Done for constitutional, cardiovascular, GI, pulmonary, the patient is rather congested in the chest. PHYSICAL EXAMINATION: VITAL SIGNS: Afebrile, pulse 69, respiration 19, blood pressure 113/54, pulse ox 98 percent on 10 L. GENERAL APPEARANCE: Lying in bed, tired-appearing. EYES: Pupils equal. Conjunctivae normal. HEENT: External appearance of nose and ears normal. Oral cavity dry. NECK: JVD unable to assess. Mass not palpable. RESPIRATORY: Effort increased. LUNGS: Decreased breath sounds. Expiratory crackles CARDIOVASCULAR: 1st and 2nd sounds. No edema. ABDOMEN: Soft and nontender. Liver and spleen not palpable. PSYCHIATRY: Awake, answering questions. INVESTIGATIONS: Potassium 5.4, BUN 52, creatinine 2.17. Accu-Cheks are noted. ASSESSMENT: 1. Acute congestive heart failure exacerbation from diastolic dysfunction. Ejection fraction 55-60 percent, now stabilized. 2. Acute periorbital swelling in the right eye with involvement to the perirectus muscle from last admission, complete course of antibiotics on July 21, 2018. 3. Acute severe hypoxic respiratory failure from bilateral pneumonia requiring 10 L of high-flow oxygen with worsening bilateral pneumonia, could be silent aspiration, slow to respond. 4. Chronic obstructive pulmonary disease in an ex-smoker. 5. Diabetes mellitus type 2 on oral hypoglycemic. 6. Hyperlipidemia. 7. Essential hypertension. 8. Coronary artery disease, prior history of myocardial infarction. 9. Primary osteoarthritis. 10.Mild to moderate cognitive impairment from late onset Alzheimer's dementia. 11.Macular degeneration. 12.Chronic gait dysfunction uses a walker. 13.Chronic diverticulosis. 14.Normocytic anemia cause unknown, being followed by Dr. Shelby. 15.Peripheral neuropathy secondary to diabetes. 16.Chronic urinary outflow obstruction the patient has a Galicia catheter being followed by Dr. Milner. 17.Chronically occluded left internal carotid artery. 18.Stage II sacral decubitus ulcer, present on admission. 19.Acute renal failure likely prerenal from diuresis, slow to respond. 20.Bilateral pneumonia, suspect gram-negative organism and aspiration; radiologically, slow to respond. PLAN: Discussed with Dr. Ca and prognosis guarded. The patient is currently on meropenem and vancomycin. Renal function has started to slowly some improvement. We will see how it does, how does that go. We will add some Mucinex. MMODL / IJN: [id number] /
[2018-07-25] MEDS: SODIUM CHLORIDE 0.9% 1,000 ML IV SCH (06:06)
[2018-07-25] MEDS: PANTOPRAZOLE 40 MG TABLET PO SCH ×2 (06:06→17:20)
[2018-07-25 06:17] LABS: Glucose,Whole Blood 112 mg/dL (75-99)
[2018-07-25 06:57] LABS: Calcium 9.5 mg/dL (8.4-10.2)
[2018-07-25 07:02] LABS: Vancomycin,Random 29.8 ug/mL
[2018-07-25] MEDS: METOPROLOL TARTRATE 25 MG TAB PO SCH ×2 (09:15→21:49)
[2018-07-25] MEDS: GABAPENTIN 100 MG CAP PO SCH ×2 (09:15→17:20)
[2018-07-25] MEDS: MEGESTROL 400 MG/10 ML CUP PO SCH (09:15)
[2018-07-25] MEDS: metFORMIN 500 MG TAB PO SCH ×2 (09:15→17:24)
[2018-07-25] MEDS: CITALOPRAM HYDROBROMIDE 20 MG TAB PO SCH (09:16)
[2018-07-25] MEDS: guaiFENesin 600 MG TABLET.ER PO SCH ×2 (09:20→21:49)
[2018-07-25] MEDS: SYMBICORT 80-4.5 MCG INHALER INHALATION SCH ×2 (09:22→20:44)
[2018-07-25] MEDS: MEROPENEM 1 GM in SODIUM CHLORIDE 0.9% 100 ML IVPB SCH (12:25)
[2018-07-25] MEDS: TAMSULOSIN 0.4 MG CAP.ER.24H PO SCH (12:37)
--- NOTE | 2018-07-25 15:08 | P.PN ---
Subjective Progress Note Date: 07/25/18 A 69-year-old male patient, detention resident, who came into the hospital because of worsening shortness of breath. Because of his declining pressors status of Pulmicort and station was requested. The patient has had multiple hospitalizations. He was in the hospital last on 06/30/2018 and he was discharged on 07/02/2018. He was subsequently admitted on 07/06/2018 and discharged on 07/09/2018. His previous admissions related to treatment of a periorbital cellulitis for which she was given antibiotics and he responded very nicely. The patient was discharged on 07/09/2018 on a combination of Zosyn and vancomycin and he was released tomorrow with for further rehabilitation. However, he is not seeming to be a rehab candidate and the patient may likely stay there on a permanent basis at detention. He is known to have COPD. No still pulmonary fibrosis at [facility]D. He is known to have diabetes mellitus, hyperlipidemia and hypertension coronary artery disease and hypothyroidism. His is very much involved in this care. The patient has been reported to have on and off difficulty with swallowing special with liquidy material. The felt that at times. Aspirated on food material. During this current admission, the patient comes in for increased shortness of breath. He was placed on IV Lasix and subsequently he became prerenal in the creatinine came up to 2.54 on diuretics have been stopped. He is on no antibiotics for now. I reviewed the scan of the chest that was done yesterday and showed emphysema and multifocal bilateral pneumonia with small bilateral pleural effusion. The pneumonia is worsening lower lobes more so on the right. Heart is not enlarged. There is no mediastinal lymphadenopathy. Going back on previous admissions, the patient wasn't hospital on 06/09/2018 and he was infected in the urine with a Pneumonia That Was a ESBL Producing Organism. The Subsequent Blood Cultures Following That Has Been All Negative. He Also Had a White Cell Count of 8.8. Hemoglobin Stable at 8.1. He Is Currently on 10 L of Oxygen by Nasal Cannula. His Pulse Ox Is 89-90%. He Is Afebrile. On today's evaluation of 07/24/2018, the patient is being seen for a follow-up. Essentially the same compared to yesterday. Probably slightly better. I have him on a combination of Merrem and vancomycin covering extended gram- negative bacteria and staph. He still on 10 L of oxygen by nasal cannula. He has a weak cough. Unable to bring up much of sputum. Nevertheless there is no worsening his breathing status of shortness of breath over the past 24 hours. His renal function is stable. Creatinine is down to 2.1 and the patient has been taken off diuretics which has caused some prerenal azotemia. On today's evaluation of 07/25/2018, the patient is laying down comfortably in bed. He remains on a broad-spectrum antibiotic coverage and the patient is on a combination of meropenem and vancomycin. He is still on high flow oxygen at 10 L per minute nasal cannula. He is not doing much of activity. He continues to be in bed all the time. Barely using his incentive spirometer. He has been taken off diuretics and there has been improvement in the renal function and creatinine is down to 2.0. Rest of the blood work and electrodes are all within normal limits. The vancomycin random level was 29.8. No fever. No chills. Unable to wean down the FiO2 any further as the patient's pulse ox is around 92% on high flow oxygen. No other significant events overnight. Objective - Vital Signs Vital signs: Vital Signs Temp 97.0 F L 07/25/18 12:00 Pulse 62 07/25/18 12:00 Resp 18 07/25/18 12:00 BP 109/56 07/25/18 12:00 Pulse Ox 92 L 07/25/18 12:00 Intake & Output 07/24/18 07/25/18 07/25/18 18:59 06:59 18:59 Intake Total 890 80 100 Output Total 600 Balance 290 80 100 Weight 68.5 kg 67.5 kg Intake: Intake, IV Titration 450 Amount DAPTOmycin 500 mg In 100 Sodium Chloride 0.9% 50 ml @ 100 mls/hr IVPB Q24H [facility] Rx#:[id number] Meropenem 1 gm In Sodium 100 Chloride 0.9% 100 ml @ 200 mls/hr IVPB Q12H [facility] Rx#:[id number] Vancomycin 1,250 mg In 250 Sodium Chloride 0.9% 250 ml @ 125 mls/hr IVPB ONCE ONE Rx#:[id number] Oral 440 80 100 Output: Urine 600 Other: Voiding Method Indwelling Catheter Indwelling Catheter Indwelling Catheter # Bowel Movements 1 - Exam Gen. appearance, comfortable likely distress currently on 2 L about 2 by nasal cannula, resting comfortably in bed Head exam was generally normal. There was no scleral icterus or corneal arcus. Mucous membranes were moist. HEENT: Head is atraumatic, normocephalic. Pupils equal, round. Sclera anicteric. Conjunctiva are clear. Mucous membranes of the mouth are moist. Neck is supple. There is no elevated jugular venous pressure. carotid bruit is heard. HEART EXAMINATION: Cardiac exam revealed the PMI to be normally situated and sized. The rhythm was regular and no extrasystoles were noted during several minutes of auscultation. The first and second heart sounds were normal and physiologic splitting of the second heart sound was noted. There were no murmurs , rubs, clicks, or gallops. CHEST EXAMINATION:[ Lungs are clear with fine crackles to bilateral bases. No chest wall tenderness is noted on palpation or with deep breathing.] ABDOMEN: Abdominal exam revealed normal bowel sounds. The abdomen was soft, non- tender, and without masses, organomegaly, or appreciable enlargement of the abdominal aorta. EXTREMITIES:[ 1+ peripheral pulses with no evidence of peripheral edema and no calf tenderness noted]. NEUROLOGIC [patient is awake, alert and oriented X1] Examination of the skin revealed no evidence of significant rashes, suspicious appearing nevi or other concerning lesions. - Labs CBC & Chem 7: 07/20/18 06:12 07/25/18 06:16 Labs: Abnormal Lab Results - Last 24 Hours (Table) 07/24/18 07/24/18 07/25/18 Range/Units 16:43 20:23 06:11 Chloride (98-107) mmol/L BUN (9-20) mg/dL Creatinine (0.66-1.25) mg/dL Glucose (74-99) mg/dL POC Glucose (mg/dL) 105 H 270 H 112 H (75-99) mg/dL 07/25/18 Range/Units 06:16 Chloride 114 H (98-107) mmol/L BUN 45 H (9-20) mg/dL Creatinine 2.05 H (0.66-1.25) mg/dL Glucose 106 H (74-99) mg/dL POC Glucose (mg/dL) (75-99) mg/dL Microbiology - Last 24 Hours (Table) 07/19/18 10:15 Blood Culture - Final Blood No Growth after 144 hours Assessment and Plan Plan: Assessment 1 acute bilateral pneumonia, suspect gram-negative pneumonia with diffuse consolidation lower lobes bilaterally. Consideration is to be given for a gram- negative ESBL producing organisms knowing that the patient has been infected with this in the past and the patient had a ESBL producing Klebsiella pneumoniae in the urine. The patient is currently on a combination of vancomycin and Merrem. 2 acute hypoxic respiratory failure secondary to above currently on high flow oxygen at 10 L per minute there is a cannula 3 high aspiration risk 4 dementia with impairment in cognitive functions and significant debility and impairment of the performance and functional status 5 history of CVA/TIA 6 coronary artery disease with previous [place] 7 recent hospitalization for periorbital cellulitis, recovered 8 unexplained weight loss 9 macular degeneration 10 BPH 11 diabetes mellitus type 2 12 peripheral neuropathy 13 peripheral vascular disease 14 diverticular disease 15 hypothyroidism 16 detention resident Plan Chest x-ray in the morning. Aspiration precautions. Continue antibiotic for another 24 hours. Wean FiO2 as possible to maintain a saturation above 90%. We 'll continue to follow. Long-term prognosis poor baseline above-mentioned comorbidities. The patient is a detention resident.
--- NOTE | 2018-07-25 16:57 | PN ---
PROGRESS NOTE DATE OF SERVICE: July 25, 2018. PRESENT COMPLAINT: Tired. INTERVAL HISTORY: This patient with two recent admissions for right periorbital cellulitis finished a course of antibiotic for that for 07/21/2018 presented with acute CHF exacerbation that went into acute renal failure and acute respiratory failure felt to be from bilateral pneumonia. The patient is on broad-spectrum antibiotics. Oral intake continues to be poor. The patient is rather weak. Did sit up briefly on the chair. Remains on high- flow 10 L oxygen. Got a congested chest. REVIEW OF SYSTEMS: Done for constitutional, cardiovascular, GI, pulmonary and relevant findings as above. CURRENT MEDICATIONS: Reviewed that include IV meropenem and vancomycin. EXAMINATION: VITAL SIGNS: Afebrile, pulse 62, respiratory 18, blood pressure 109/56. Pulse ox 92 percent on 10 L. GENERAL APPEARANCE: Lying in bed. Tired appearing. EYES: Pupils are equal. Conjunctivae normal. HEENT: External appearance of nose and ears normal. Oral cavity dry. NECK: JVD unable to assess. Mass not palpable. RESPIRATORY: Effort increased. LUNGS: Decreased breath sounds. Expiratory crackles. CARDIOVASCULAR: 1st and 2nd sounds normal. No edema. ABDOMEN: Soft, nontender. Liver and spleen not palpable. PSYCHIATRY: Awake, answering simple questions. INVESTIGATIONS: Potassium 5, BUN 45, creatinine 2.05. ASSESSMENT: 1. Acute congestive heart failure exacerbation from diastolic dysfunction. Ejection fraction 55-60 percent, now stabilized. 2. Acute periorbital cellulitis of the right eye with involvement of the perirectus muscle from last admission. The patient completed a course of antibiotics on 07/21/2018. 3. Acute severe hypoxic respiratory failure from bilateral pneumonia requiring 10 L of high-flow oxygen with worsening bilateral pneumonia could be underlying silent aspiration, slow to respond. 4. Chronic obstructive pulmonary disease in an ex-smoker. 5. Diabetes mellitus type 2 on oral hypoglycemics. 6. Hyperlipidemia. 7. Essential hypertension. 8. Coronary artery disease, prior history of myocardial infarction. 9. Primary osteoarthritis. 10.Mild to moderate cognitive impairment from late onset Alzheimer's dementia. 11.Macular degeneration. 12.Chronic gait dysfunction uses a walker. 13.Chronic colonic diverticulosis. 14.Normocytic anemia, cause unknown, being followed by Dr. Shelby. 15.Peripheral neuropathy secondary to diabetes. 16.Chronic urinary output from obstruction. The patient has a Galicia catheter, being followed by Dr. Milner. 17.Chronically occluded left internal carotid artery. 18.Stage II sacral decubitus ulcer, present on admission. 19.Acute renal failure likely prerenal from diuresis with some improvement. 20.Bilateral pneumonia, suspect gram-negative organism and aspiration. Radiologically and clinically slow to respond, still requiring high-flow oxygen. PLAN: Overall prognosis remains rather guarded. The patient has not been eating well. Still remains on high-flow oxygen. Continue with broad-spectrum antibiotics. The patient is drinking some fluids according to the nurse. Follow closely. MMODL / IJN: [id number] /
[2018-07-25 17:01] LABS: Glucose,Whole Blood 102 mg/dL (75-99)
[2018-07-25] MEDS: SODIUM CHLORIDE 0.9% 500 ML 500 ML IV SCH (17:15)
[2018-07-25] MEDS: FERROUS SULFATE 325 MG TAB PO SCH (17:20)
[2018-07-25] MEDS: LACTOBACILLUS ACIDOPH & BULGAR 1 EACH PACKET PO SCH (17:20)
[2018-07-25] MEDS: POTASSIUM CHLORIDE ER 10 MEQ TAB.ER.PRT PO SCH (17:20)
[2018-07-25] MEDS: CLOPIDOGREL 75 MG TAB PO SCH (17:20)
[2018-07-25 21:13] LABS: Glucose,Whole Blood 97 mg/dL (75-99)
[2018-07-25] MEDS: ASPIRIN 81 MG PO SCH (21:49)
[2018-07-25] MEDS: DONEPEZIL 10 MG TAB PO SCH (21:49)
[2018-07-26] MEDS: MEROPENEM 1 GM in SODIUM CHLORIDE 0.9% 100 ML IVPB SCH ×3 (00:11→23:10)
[2018-07-26] MEDS: PANTOPRAZOLE 40 MG TABLET PO SCH ×2 (05:14→16:10)
[2018-07-26 06:27] LABS: Glucose,Whole Blood 95 mg/dL (75-99)
[2018-07-26 08:30] LABS: HGB 8.2 gm/dL (13.0-17.5); Hypochromasia Marked; MCH 32.7 pg (25.0-35.0); MCHC 31.3 g/dL (31.0-37.0); MCV 104.5 fL (80.0-100.0); Macrocytosis Slight; Mean Platelet Volume 7.6; Platelet Count 386 k/uL (150-450); RBC 2.49 m/uL (4.30-5.90); RDW 13.9 % (11.5-15.5); WBC 7.2 k/uL (3.8-10.6)
[2018-07-26 08:32] LABS: Calcium 9.6 mg/dL (8.4-10.2); Potassium 5.4 mmol/L (3.5-5.1)
[2018-07-26 08:37] LABS: Vancomycin,Random 22.3 ug/mL
[2018-07-26] MEDS: SYMBICORT 80-4.5 MCG INHALER INHALATION SCH ×2 (09:12→21:04)
[2018-07-26] MEDS: CITALOPRAM HYDROBROMIDE 20 MG TAB PO SCH (09:37)
[2018-07-26] MEDS: GABAPENTIN 100 MG CAP PO SCH ×2 (09:37→16:10)
[2018-07-26] MEDS: METOPROLOL TARTRATE 25 MG TAB PO SCH ×2 (09:37→21:29)
[2018-07-26] MEDS: guaiFENesin 600 MG TABLET.ER PO SCH ×2 (09:37→21:29)
[2018-07-26] MEDS: metFORMIN 500 MG TAB PO SCH ×2 (09:38→16:11)
[2018-07-26] MEDS: MEGESTROL 400 MG/10 ML CUP PO SCH (10:01)
[2018-07-26 11:09] LABS: Band Neutrophils % 3 %; Eosinophils # (M) 0.43 k/uL (0-0.7); Lymphocytes # (M) 1.37 k/uL (1.0-4.8); Metamyelocytes # (M) 0.14 k/uL (0); Metamyelocytes % 2 %; Neutrophils % (M) 65 %; Nucleated Red Blood Cells 0 /100 WBC (0-0); Total Cells Counted 200
[2018-07-26 11:13] LABS: Anisocytosis (M) Present
[2018-07-26 11:31] LABS: Glucose,Whole Blood 103 mg/dL (75-99)
--- NOTE | 2018-07-26 11:45 | P.PN ---
Subjective Progress Note Date: 07/26/18 Principal diagnosis: Acute bilateral pneumonia, suspected gram-negative pneumonia with diffuse consolidation in the lower lobes bilaterally. A 69-year-old male patient, senior care resident, who came into the hospital because of worsening shortness of breath. Because of his declining pressors status of Pulmicort and station was requested. The patient has had multiple hospitalizations. He was in the hospital last on 06/30/2018 and he was discharged on 07/02/2018. He was subsequently admitted on 07/06/2018 and discharged on 07/09/2018. His previous admissions related to treatment of a periorbital cellulitis for which she was given antibiotics and he responded very nicely. The patient was discharged on 07/09/2018 on a combination of Zosyn and vancomycin and he was released tomorrow with for further rehabilitation. However, he is not seeming to be a rehab candidate and the patient may likely stay there on a permanent basis at senior care. He is known to have COPD. No still pulmonary fibrosis at ILD. He is known to have diabetes mellitus, hyperlipidemia and hypertension coronary artery disease and hypothyroidism. His is very much involved in this care. The patient has been reported to have on and off difficulty with swallowing special with liquidy material. The felt that at times. Aspirated on food material. During this current admission, the patient comes in for increased shortness of breath. He was placed on IV Lasix and subsequently he became prerenal in the creatinine came up to 2.54 on diuretics have been stopped. He is on no antibiotics for now. I reviewed the scan of the chest that was done yesterday and showed emphysema and multifocal bilateral pneumonia with small bilateral pleural effusion. The pneumonia is worsening lower lobes more so on the right. Heart is not enlarged. There is no mediastinal lymphadenopathy. Going back on previous admissions, the patient wasn't hospital on 06/09/2018 and he was infected in the urine with a Pneumonia That Was a ESBL Producing Organism. The Subsequent Blood Cultures Following That Has Been All Negative. He Also Had a White Cell Count of 8.8. Hemoglobin Stable at 8.1. He Is Currently on 10 L of Oxygen by Nasal Cannula. His Pulse Ox Is 89-90%. He Is Afebrile. On today's evaluation of 07/24/2018, the patient is being seen for a follow-up. Essentially the same compared to yesterday. Probably slightly better. I have him on a combination of Merrem and vancomycin covering extended gram- negative bacteria and staph. He still on 10 L of oxygen by nasal cannula. He has a weak cough. Unable to bring up much of sputum. Nevertheless there is no worsening his breathing status of shortness of breath over the past 24 hours. His renal function is stable. Creatinine is down to 2.1 and the patient has been taken off diuretics which has caused some prerenal azotemia. On today's evaluation of 07/25/2018, the patient is laying down comfortably in bed. He remains on a broad-spectrum antibiotic coverage and the patient is on a combination of meropenem and vancomycin. He is still on high flow oxygen at 10 L per minute nasal cannula. He is not doing much of activity. He continues to be in bed all the time. Barely using his incentive spirometer. He has been taken off diuretics and there has been improvement in the renal function and creatinine is down to 2.0. Rest of the blood work and electrodes are all within normal limits. The vancomycin random level was 29.8. No fever. No chills. Unable to wean down the FiO2 any further as the patient's pulse ox is around 92% on high flow oxygen. No other significant events overnight. On 07/26/2018 patient seen in follow-up on selective care unit. He is resting in bed, currently down to 8 L per high flow nasal cannula. Remains congested, his current antibiotic coverage includes meropenem and vancomycin. Blood cultures show no growth since admission. No fever or chills, vital signs are stable. Patient has a loose congested cough, and there is some dried rash phlegm on his gown. These labs have been reviewed, WBC 7.2, hemoglobin is 8.2, sodium is 139, potassium is 5.4, chloride is 114, BUN is 42 creatinine is 1.9. Objective - Vital Signs Vital signs: Vital Signs Temp 97.8 F 07/26/18 08:00 Pulse 69 07/26/18 08:00 Resp 16 07/26/18 08:00 BP 123/58 07/26/18 08:00 Pulse Ox 97 07/26/18 08:00 Intake & Output 07/25/18 07/26/18 07/26/18 18:59 06:59 18:59 Intake Total 200 50 240 Output Total 500 1000 Balance -300 -950 240 Weight 67.5 kg 67.5 kg Intake: Oral 200 50 240 Output: Urine 500 1000 Other: Voiding Method Indwelling Catheter Indwelling Catheter Indwelling Catheter - Exam Gen. appearance, comfortable likely distress currently on 2 L about 2 by nasal cannula, resting comfortably in bed Head exam was generally normal. There was no scleral icterus or corneal arcus. Mucous membranes were moist. HEENT: Head is atraumatic, normocephalic. Pupils equal, round. Sclera anicteric. Conjunctiva are clear. Mucous membranes of the mouth are moist. Neck is supple. There is no elevated jugular venous pressure. carotid bruit is heard. HEART EXAMINATION: Cardiac exam revealed the PMI to be normally situated and sized. The rhythm was regular and no extrasystoles were noted during several minutes of auscultation. The first and second heart sounds were normal and physiologic splitting of the second heart sound was noted. There were no murmurs , rubs, clicks, or gallops. CHEST EXAMINATION:[ Lungs are clear with fine crackles to bilateral bases. No chest wall tenderness is noted on palpation or with deep breathing.] ABDOMEN: Abdominal exam revealed normal bowel sounds. The abdomen was soft, non- tender, and without masses, organomegaly, or appreciable enlargement of the abdominal aorta. EXTREMITIES:[ 1+ peripheral pulses with no evidence of peripheral edema and no calf tenderness noted]. NEUROLOGIC [patient is awake, alert and oriented X1] Examination of the skin revealed no evidence of significant rashes, suspicious appearing nevi or other concerning lesions. - Labs CBC & Chem 7: 07/26/18 07:19 07/26/18 07:19 Labs: Abnormal Lab Results - Last 24 Hours (Table) 07/25/18 07/26/18 07/26/18 Range/Units 16:56 07:19 07:19 RBC 2.49 L (4.30-5.90) m/uL Hgb 8.2 L (13.0-17.5) gm/dL Hct 26.0 L (39.0-53.0) % MCV 104.5 H (80.0-100.0) fL Metamyelocytes # (Man) 0.14 H (0) k/uL Potassium 5.4 H (3.5-5.1) mmol/L Chloride 114 H (98-107) mmol/L Carbon Dioxide 21 L (22-30) mmol/L BUN 42 H (9-20) mg/dL Creatinine 1.99 H (0.66-1.25) mg/dL Glucose 101 H (74-99) mg/dL POC Glucose (mg/dL) 102 H (75-99) mg/dL 07/26/18 Range/Units 11:23 RBC (4.30-5.90) m/uL Hgb (13.0-17.5) gm/dL Hct (39.0-53.0) % MCV (80.0-100.0) fL Metamyelocytes # (Man) (0) k/uL Potassium (3.5-5.1) mmol/L Chloride (98-107) mmol/L Carbon Dioxide (22-30) mmol/L BUN (9-20) mg/dL Creatinine (0.66-1.25) mg/dL Glucose (74-99) mg/dL POC Glucose (mg/dL) 103 H (75-99) mg/dL Microbiology - Last 24 Hours (Table) 07/19/18 10:15 Blood Culture - Final Blood No Growth after 144 hours Assessment and Plan Plan: 1 acute bilateral pneumonia, suspect gram-negative pneumonia with diffuse consolidation lower lobes bilaterally. Consideration is to be given for a gram- negative ESBL producing organisms knowing that the patient has been infected with this in the past and the patient had a ESBL producing Klebsiella pneumoniae in the urine. The patient is currently on a combination of vancomycin and Merrem. 2 acute hypoxic respiratory failure secondary to above currently on high flow oxygen at 10 L per minute there is a cannula 3 high aspiration risk 4 dementia with impairment in cognitive functions and significant debility and impairment of the performance and functional status 5 history of CVA/TIA 6 coronary artery disease with previous [place] 7 recent hospitalization for periorbital cellulitis, recovered 8 unexplained weight loss 9 macular degeneration 10 BPH 11 diabetes mellitus type 2 12 peripheral neuropathy 13 peripheral vascular disease 14 diverticular disease 15 hypothyroidism 16 senior care resident Plan We'll obtain a chest x-ray this morning, maintain aspiration precautions, continue same antibiotic coverage. No fever or chills, continue weaning FiO2, let the patient sit up at the bedside, increase activity, increase incentive spirometry use, deep breathing and coughing, pulmonary toileting. Patient is supposed to have a swallow evaluation. Consult physical therapy. Overall prognosis is extremely guarded in view of multiple comorbidities, and if significant medical debility and impairment of performance and functional status. I performed a history & physical examination of the patient and discussed their management with my nurse practitioner, Zainab Valentin. I reviewed the nurse practitioner's note and agree with the documented findings and plan of care. Lung sounds are positive for diffuse rhonchi. The findings and the impression was discussed with the patient. I attest to the documentation by the nurse practitioner. Time with Patient: Less than 30
[2018-07-26] MEDS: TAMSULOSIN 0.4 MG CAP.ER.24H PO SCH (11:48)
--- NOTE | 2018-07-26 14:09 | FL ---
Modified barium swallow. HISTORY: Dysphagia. Modified barium swallow was performed with the department of speech pathology. The patient was prese nted with various consistencies of barium. There is no evidence for aspiration or penetration. Full report is to follow from the department of speech pathology. Impression: No evidence for aspiration.
[2018-07-26] MEDS: POTASSIUM CHLORIDE ER 10 MEQ TAB.ER.PRT PO SCH (16:10)
[2018-07-26] MEDS: CLOPIDOGREL 75 MG TAB PO SCH (16:10)
[2018-07-26] MEDS: FERROUS SULFATE 325 MG TAB PO SCH (16:10)
[2018-07-26] MEDS: FUROSEMIDE 10 MG/ML 4 ML VIAL IV SCH ×2 (16:10→21:31)
[2018-07-26] MEDS: LACTOBACILLUS ACIDOPH & BULGAR 1 EACH PACKET PO SCH (16:10)
[2018-07-26] MEDS: SODIUM CHLORIDE 0.9% 500 ML 500 ML IV SCH (16:11)
[2018-07-26 16:45] LABS: Glucose,Whole Blood 131 mg/dL (75-99)
--- NOTE | 2018-07-26 20:57 | PN ---
PROGRESS NOTE DATE OF SERVICE: July 26, 2018. PRESENTING COMPLAINT: Tired. INTERVAL HISTORY: The patient had 2 recent admissions for right periorbital cellulitis, finished a course of antibiotics on July 21, 2018. At this time, presented with acute CHF exacerbation, then went into acute renal failure and subsequent acute respiratory failure, felt to be from bilateral severe pneumonia. Patient on broad-spectrum antibiotics. Eating about 25%. Remains weak and tired, needing assistance. Can only take a couple of steps. The patient remains on high-flow oxygen. REVIEW OF SYSTEMS: Done for constitutional, cardiovascular, GI, pulmonary and relevant findings as above. CURRENT MEDICATIONS: Reviewed that include IV meropenem and IV vancomycin. EXAMINATION: VITAL SIGNS: Afebrile, pulse 51, respiratory 18, blood pressure 118/55, pulse ox 91 percent on 8 L of oxygen. GENERAL APPEARANCE: Lying in bed, tired-appearing. Awake. Eyes: Pupils equal. Conjunctivae pale. HEENT: External appearance of nose and ears normal. Oral cavity dry. Neck JVD unable to assess. Mass not palpable. RESPIRATORY: Effort increased. LUNGS: Decreased breath sounds. Some crackles. CARDIOVASCULAR: 1st and 2nd sounds normal. No edema. ABDOMEN: Soft, nontender. Liver and spleen not palpable. PSYCHIATRY: Awake, tired. Answering simple questions. INVESTIGATIONS: White count 7.2, hemoglobin 8.2, potassium 5.4, BUN 42, creatinine 1.99. Chest x-ray film reviewed by me personally shows bilateral infiltrates. ASSESSMENT: 1. Acute congestive heart failure exacerbation from diastolic dysfunction. Ejection fraction 50-55 percent stabilized. 2. Acute right periorbital cellulitis with involvement of the perirectus muscle from last admission, patient completed antibiotics on 07/21/2018. 3. Acute severe hypoxic respiratory failure from bilateral pneumonia requiring 10 L of high-flow oxygen with worsening bilateral pneumonia could be from aspiration, slow to respond. Patient is currently on 8 L of oxygen. 4. Chronic obstructive pulmonary disease in an ex-smoker. 5. Diabetes mellitus type 2 on oral hypoglycemics. 6. Hyperlipidemia. 7. Essential hypertension. 8. Coronary artery disease with prior history of myocardial infarction. 9. Primary osteoarthritis. 10.Mild to moderate cognitive impairment from late onset Alzheimer's dementia. 11.Macular degeneration. 12.Chronic gait dysfunction uses a walker. 13.Chronic colonic diverticulosis. 14.Normocytic anemia cause unknown, being followed by Dr. Shelby. 15.Peripheral neuropathy secondary to diabetes. 16.Chronic urinary outflow obstruction, has a Galicia catheter being followed by Dr. Milner. 17.Chronically occluded left internal carotid artery. 18.Stage II sacral decubitus ulcer, present on admission. 19.Acute renal failure likely prerenal from diuresis. 20.Bilateral pneumonia suspect gram-negative organism from an aspiration, slow to respond, requiring high-flow oxygen. PLAN: Continue current medication and treatment plan. I will let Pulmonary decide if there is need for bronchoscopy. The patient will have coarse crackles and may benefit from bronchoscopy except that patient is still requiring high-flow oxygen. Prognosis is guarded. MMODL / IJN: [id number] /
--- NOTE | 2018-07-26 21:18 | XR ---
EXAMINATION: XR chest 2V DATE AND TIME: 07/26/2018 6:45 PM CLINICAL INDICATION: pulmonary edema TECHNIQUE: PA and lateral COMPARISON: 07/24/2018 at 11:21 AM FINDINGS: The previously seen severe bilateral airspace filling process has progressed mildly when compared to the prior study of 2 days ago. There is no pneumothorax. No definite pleural effusions are visualized. Remainder of the radiographic findings are unaltered. IMPRESSION: MILD INTERVAL WORSENING IN THE OVERALL LUNG INFLATION PATTERN.
[2018-07-26 21:22] LABS: Glucose,Whole Blood 96 mg/dL (75-99)
[2018-07-26] MEDS: ASPIRIN 81 MG PO SCH (21:29)
[2018-07-26] MEDS: DONEPEZIL 10 MG TAB PO SCH (21:30)
[2018-07-27 05:51] LABS: Glucose,Whole Blood 104 mg/dL (75-99)
[2018-07-27] MEDS: PANTOPRAZOLE 40 MG TABLET PO SCH ×2 (06:14→16:41)
[2018-07-27 06:56] LABS: Calcium 9.7 mg/dL (8.4-10.2); Potassium 5.5 mmol/L (3.5-5.1)
[2018-07-27 07:30] LABS: Vancomycin,Random 20.4 ug/mL
--- NOTE | 2018-07-27 08:11 | XR ---
EXAMINATION TYPE: XR chest 1V portable DATE OF EXAM: 07/27/2018 HISTORY: Shortness of breath. COMPARISON: 07/26/2018 TECHNIQUE: Single view of the chest is submitted. FINDINGS: Demonstrated are scattered senescent parenchymal change. Reticulonodular infiltrates persist throughout both lung malone. Small pleural effusions are present. Correlate for pneumonia. Atypical CHF also a consideration. The heart is stable. Hilar and mediastinal structures are within normal limits. Degenerative changes are seen of the dorsal spine. IMPRESSION: 1. Reticulonodular infiltrates persist throughout both lung malone. Small pleural effusions are pres ent. Correlate for pneumonia. Atypical CHF also a consideration.
[2018-07-27] MEDS: CLOPIDOGREL 75 MG TAB PO SCH (09:14)
[2018-07-27] MEDS: GABAPENTIN 100 MG CAP PO SCH ×2 (09:14→16:40)
[2018-07-27] MEDS: CITALOPRAM HYDROBROMIDE 20 MG TAB PO SCH (09:14)
[2018-07-27] MEDS: guaiFENesin 600 MG TABLET.ER PO SCH ×2 (09:14→21:04)
[2018-07-27] MEDS: FERROUS SULFATE 325 MG TAB PO SCH (09:14)
[2018-07-27] MEDS: FUROSEMIDE 10 MG/ML 4 ML VIAL IV SCH ×2 (09:15→21:06)
[2018-07-27] MEDS: TAMSULOSIN 0.4 MG CAP.ER.24H PO SCH (09:20)
[2018-07-27] MEDS: METOPROLOL TARTRATE 25 MG TAB PO SCH ×2 (09:20→21:04)
[2018-07-27] MEDS: metFORMIN 500 MG TAB PO SCH ×2 (09:21→16:40)
[2018-07-27] MEDS: MEGESTROL 400 MG/10 ML CUP PO SCH (09:21)
[2018-07-27] MEDS: SYMBICORT 80-4.5 MCG INHALER INHALATION SCH ×2 (09:33→20:16)
--- NOTE | 2018-07-27 11:04 | P.PN ---
Subjective Progress Note Date: 07/27/18 Principal diagnosis: Acute bilateral pneumonia, suspected gram-negative pneumonia with diffuse consolidation in the lower lobes bilaterally. A 69-year-old male patient, assisted resident, who came into the hospital because of worsening shortness of breath. Because of his declining pressors status of Pulmicort and station was requested. The patient has had multiple hospitalizations. He was in the hospital last on 06/30/2018 and he was discharged on 07/02/2018. He was subsequently admitted on 07/06/2018 and discharged on 07/09/2018. His previous admissions related to treatment of a periorbital cellulitis for which she was given antibiotics and he responded very nicely. The patient was discharged on 07/09/2018 on a combination of Zosyn and vancomycin and he was released tomorrow with for further rehabilitation. However, he is not seeming to be a rehab candidate and the patient may likely stay there on a permanent basis at assisted. He is known to have COPD. No still pulmonary fibrosis at [facility]. He is known to have diabetes mellitus, hyperlipidemia and hypertension coronary artery disease and hypothyroidism. His is very much involved in this care. The patient has been reported to have on and off difficulty with swallowing special with liquidy material. The felt that at times. Aspirated on food material. During this current admission, the patient comes in for increased shortness of breath. He was placed on IV Lasix and subsequently he became prerenal in the creatinine came up to 2.54 on diuretics have been stopped. He is on no antibiotics for now. I reviewed the scan of the chest that was done yesterday and showed emphysema and multifocal bilateral pneumonia with small bilateral pleural effusion. The pneumonia is worsening lower lobes more so on the right. Heart is not enlarged. There is no mediastinal lymphadenopathy. Going back on previous admissions, the patient wasn't hospital on 06/09/2018 and he was infected in the urine with a Pneumonia That Was a ESBL Producing Organism. The Subsequent Blood Cultures Following That Has Been All Negative. He Also Had a White Cell Count of 8.8. Hemoglobin Stable at 8.1. He Is Currently on 10 L of Oxygen by Nasal Cannula. His Pulse Ox Is 89-90%. He Is Afebrile. On today's evaluation of 07/24/2018, the patient is being seen for a follow-up. Essentially the same compared to yesterday. Probably slightly better. I have him on a combination of Merrem and vancomycin covering extended gram- negative bacteria and staph. He still on 10 L of oxygen by nasal cannula. He has a weak cough. Unable to bring up much of sputum. Nevertheless there is no worsening his breathing status of shortness of breath over the past 24 hours. His renal function is stable. Creatinine is down to 2.1 and the patient has been taken off diuretics which has caused some prerenal azotemia. On today's evaluation of 07/25/2018, the patient is laying down comfortably in bed. He remains on a broad-spectrum antibiotic coverage and the patient is on a combination of meropenem and vancomycin. He is still on high flow oxygen at 10 L per minute nasal cannula. He is not doing much of activity. He continues to be in bed all the time. Barely using his incentive spirometer. He has been taken off diuretics and there has been improvement in the renal function and creatinine is down to 2.0. Rest of the blood work and electrodes are all within normal limits. The vancomycin random level was 29.8. No fever. No chills. Unable to wean down the FiO2 any further as the patient's pulse ox is around 92% on high flow oxygen. No other significant events overnight. On 07/26/2018 patient seen in follow-up on selective care unit. He is resting in bed, currently down to 8 L per high flow nasal cannula. Remains congested, his current antibiotic coverage includes meropenem and vancomycin. Blood cultures show no growth since admission. No fever or chills, vital signs are stable. Patient has a loose congested cough, and there is some dried rash phlegm on his gown. These labs have been reviewed, WBC 7.2, hemoglobin is 8.2, sodium is 139, potassium is 5.4, chloride is 114, BUN is 42 creatinine is 1.9. The patient is seen again today 07/27/2018 in follow-up on the selective care unit. He is currently awake and alert in no acute distress. He is resting comfortably in bed. He does continue to require 8 L high flow nasal cannula to maintain O2 saturations in the mid 90s. He's been afebrile. Hemodynamically stable. Blood culture reveals no growth. Creatinine 2.09. He remains on vancomycin and meropenem. He remains on IV diuretics. Remains on Symbicort. Objective - Vital Signs Vital signs: Vital Signs Temp 97.4 F L 07/27/18 08:00 Pulse 60 07/27/18 08:00 Resp 16 07/27/18 08:00 BP 122/60 07/27/18 08:00 Pulse Ox 95 07/27/18 08:00 Intake & Output 07/26/18 07/27/18 07/27/18 18:59 06:59 18:59 Intake Total 600 80 120 Output Total 3100 Balance 600 -3020 120 Weight 69.5 kg 64.5 kg Intake: Oral 600 80 120 Output: Urine 3100 Other: Voiding Method Indwelling Catheter Indwelling Catheter # Bowel Movements 1 - Exam Gen. appearance, comfortable in no acute distress currently on 8 L high flow nasal cannula Head exam was generally normal. There was no scleral icterus or corneal arcus. Mucous membranes were moist. HEENT: Head is atraumatic, normocephalic. Pupils equal, round. Sclera anicteric. Conjunctiva are clear. Mucous membranes of the mouth are moist. Neck is supple. There is no elevated jugular venous pressure. carotid bruit is heard. HEART EXAMINATION: Cardiac exam revealed the PMI to be normally situated and sized. The rhythm was regular and no extrasystoles were noted during several minutes of auscultation. The first and second heart sounds were normal and physiologic splitting of the second heart sound was noted. There were no murmurs , rubs, clicks, or gallops. CHEST EXAMINATION: Lungs are clear with fine crackles to bilateral bases. No chest wall tenderness is noted on palpation or with deep breathing. ABDOMEN: Abdominal exam revealed normal bowel sounds. The abdomen was soft, non- tender, and without masses, organomegaly, or appreciable enlargement of the abdominal aorta. EXTREMITIES: 1+ peripheral pulses with no evidence of peripheral edema and no calf tenderness noted]. NEUROLOGIC patient is awake, alert and oriented X1 Examination of the skin revealed no evidence of significant rashes, suspicious appearing nevi or other concerning lesions. - Labs CBC & Chem 7: 07/26/18 07:19 07/27/18 06:12 Labs: Abnormal Lab Results - Last 24 Hours (Table) 07/26/18 07/26/18 07/26/18 Range/Units 07:19 11:23 16:37 Metamyelocytes # (Man) 0.14 H (0) k/uL Potassium (3.5-5.1) mmol/L Chloride (98-107) mmol/L BUN (9-20) mg/dL Creatinine (0.66-1.25) mg/dL POC Glucose (mg/dL) 103 H 131 H (75-99) mg/dL 07/27/18 07/27/18 Range/Units 05:38 06:12 Metamyelocytes # (Man) (0) k/uL Potassium 5.5 H (3.5-5.1) mmol/L Chloride 111 H (98-107) mmol/L BUN 41 H (9-20) mg/dL Creatinine 2.09 H (0.66-1.25) mg/dL POC Glucose (mg/dL) 104 H (75-99) mg/dL Assessment and Plan Assessment: Impression: 1 acute bilateral pneumonia, suspect gram-negative pneumonia with diffuse consolidation lower lobes bilaterally. Consideration is to be given for a gram- negative ESBL producing organisms knowing that the patient has been infected with this in the past and the patient had a ESBL producing Klebsiella pneumoniae in the urine. The patient is currently on a combination of vancomycin and Merrem. 2 acute hypoxic respiratory failure secondary to above currently on high flow oxygen at 10 L per minute there is a cannula 3 high aspiration risk 4 dementia with impairment in cognitive functions and significant debility and impairment of the performance and functional status 5 history of CVA/TIA 6 coronary artery disease with previous [place] 7 recent hospitalization for periorbital cellulitis, recovered 8 unexplained weight loss 9 macular degeneration 10 BPH 11 diabetes mellitus type 2 12 peripheral neuropathy 13 peripheral vascular disease 14 diverticular disease 15 hypothyroidism 16 assisted resident Scar: The patient was seen and evaluated by Dr. Fuentes. Patient has been slow to progress. Chest x-ray reveals reticular nodular infiltrates persistent throughout both lung malone. Small pleural effusions are present. Most likely pneumonia versus atypical CHF. He remains on vancomycin and meropenem. He remains on IV diuretics. He remains in a negative balance. We will continue to follow and make further recommendations based on his clinical status. I, the cosigning physician, performed a history & physical examination of the patient. Lungs sounds with few scattered rhonchi, crackles in the posterior bases. Maintaining good O2 saturations in the 90s on 8 L high flow nasal cannula. I discussed the assessment and plan of care with my nurse practitioner , Dina Ramos. I attest to the above note as dictated by her.
[2018-07-27 12:06] LABS: Glucose,Whole Blood 129 mg/dL (75-99)
[2018-07-27] MEDS: MEROPENEM 1 GM in SODIUM CHLORIDE 0.9% 100 ML IVPB SCH (12:12)
[2018-07-27] MEDS: SODIUM CHLORIDE 0.9% 500 ML 500 ML IV SCH (16:34)
[2018-07-27 16:37] LABS: Glucose,Whole Blood 171 mg/dL (75-99)
[2018-07-27] MEDS: LACTOBACILLUS ACIDOPH & BULGAR 1 EACH PACKET PO SCH (16:41)
[2018-07-27] MEDS: POTASSIUM CHLORIDE ER 10 MEQ TAB.ER.PRT PO SCH (16:41)
[2018-07-27 20:57] LABS: Glucose,Whole Blood 195 mg/dL (75-99)
[2018-07-27] MEDS: ASPIRIN 81 MG PO SCH (21:04)
[2018-07-27] MEDS: DONEPEZIL 10 MG TAB PO SCH (21:04)
--- NOTE | 2018-07-27 23:37 | PN ---
PROGRESS NOTE DATE OF SERVICE: 07/27/2018 PRESENTING COMPLAINT: Tired, short of breath. INTERVAL HISTORY: Patient had 2 recent admissions for right periorbital cellulitis, finished a course of antibiotics on 07/21/2018. He was admitted this time for acute CHF and then went into acute renal failure and subsequent acute respiratory failure from bilateral severe pneumonia. Patient has been on broad-spectrum antibiotics. Apparently eating some food. Oxygen requirement is down to 6 L. Still weak, tired. He has a cough. The patient was started on IV Lasix per Pulmonary yesterday. REVIEW OF SYSTEMS: Done for constitutional, cardiovascular, GI, pulmonary; relevant findings as above. Patient continues to feel rather weak and tired. CURRENT MEDICATIONS: Reviewed. They include IV Lasix 40 mg q.12, IV meropenem. PHYSICAL EXAMINATION: Temperature 97.6, pulse 59, respiration 20, blood pressure 109/53, pulse ox 98% on 8 L. GENERAL APPEARANCE: Lying in bed, tired-appearing. EYES: Pupils equal. Conjunctivae pale. HEENT: External appearance of nose and ears normal. Oral cavity dry. NECK: JVD unable to assess. Mass not palpable. RESPIRATORY: Effort increased. LUNGS: Bilateral crackles. Decreased breath sounds. CARDIOVASCULAR: First and second sounds normal. No edema. ABDOMEN: Soft, non-tender. Liver and spleen not palpable. PSYCHIATRY: Awake. Answering some simple questions. INVESTIGATIONS: Potassium 5.5, BUN 41, creatinine 2.09. Accu-Cheks are noted. Chest x-ray shows bilateral infiltrates, CHF in the differential. ASSESSMENT: 1. Acute congestive heart failure exacerbation from diastolic dysfunction, ejection fraction 50% to 55%. Given that patient's oral intake is not much, I doubt if patient has active CHF any more; difficult to say based on his x-ray. Crackles are more expiratory. He has no other signs of fluid overload. 2. Acute right periorbital cellulitis involvement of the perirectus muscle from last admission. Patient completed a course of antibiotics on 07/21/2018. 3. Acute severe hypoxic respiratory failure from bilateral pneumonia, currently down to 8 L of high-flow oxygen with bilateral pneumonia; could be aspiration, slow to respond. 4. Chronic obstructive pulmonary disease in an ex-smoker. 5. Diabetes mellitus, type 2, on oral hypoglycemic. 6. Hyperlipidemia. 7. Essential hypertension. 8. Coronary artery disease with prior history of myocardial infarction. 9. Primary osteoarthritis. 10.Mild to moderate cognitive impairment from late-onset Alzheimer's dementia. 11.Macular degeneration. 12.Chronic gait dysfunction. Uses a walker. 13.Chronic colonic diverticulosis. 14.Normocytic anemia, cause unknown, being followed by Dr. Shelby. 15.Peripheral neuropathy secondary to diabetes. 16.Chronic urinary outflow obstruction. Has a Galicia catheter, being followed by Dr. Milner. 17.Chronically occluded left internal carotid artery. 18.Stage II sacral decubitus ulcer, present on admission. 19.Acute renal failure, likely prerenal, from diuresis. 20.Bilateral pneumonia. Suspect gram-negative organism from aspiration, slow to respond. PLAN: Prognosis remains guarded. Patient remains on antibiotic, including meropenem. IV Lasix was started by Pulmonary. Will keep a very close eye on patient's renal function. MMODL / IJN: [id number] /
[2018-07-28] MEDS: MEROPENEM 1 GM in SODIUM CHLORIDE 0.9% 100 ML IVPB SCH ×3 (00:36→22:24)
[2018-07-28] MEDS: PANTOPRAZOLE 40 MG TABLET PO SCH ×2 (06:08→16:57)
[2018-07-28 06:15] LABS: Glucose,Whole Blood 95 mg/dL (75-99)
[2018-07-28 06:47] LABS: Basophils % (A) 0 %; Eosinophils # (A) 0.4 k/uL (0-0.7); Eosinophils % (A) 6 %; HCT 26.2 % (39.0-53.0); HGB 8.4 gm/dL (13.0-17.5); Hypochromasia Slight; Lymphocytes # (A) 1.4 k/uL (1.0-4.8); Lymphocytes % (A) 22 %; MCH 32.1 pg (25.0-35.0); MCHC 32.1 g/dL (31.0-37.0); MCV 100.1 fL (80.0-100.0); Mean Platelet Volume 7.4; Monocytes # (A) 0.2 k/uL (0-1.0); Monocytes % (A) 3 %; Neutrophils # (A) 4.3 k/uL (1.3-7.7); Neutrophils % (A) 68 %; Platelet Count 377 k/uL (150-450); RBC 2.62 m/uL (4.30-5.90); WBC 6.2 k/uL (3.8-10.6)
[2018-07-28 07:14] LABS: Calcium 9.6 mg/dL (8.4-10.2); Potassium 5.8 mmol/L (3.5-5.1)
[2018-07-28] MEDS: SYMBICORT 80-4.5 MCG INHALER INHALATION SCH ×2 (08:32→21:15)
--- NOTE | 2018-07-28 08:33 | XR ---
EXAMINATION TYPE: XR chest 1V portable DATE OF EXAM: 07/28/2018 COMPARISON: Prior chest x-ray 07/27/2018 CT chest 07/22/2018 HISTORY: Follow-up pneumonia, congestive heart failure TECHNIQUE: Single frontal view of the chest is obtained. FINDINGS: Findings are similar to prior exam. Chronic fracture of the mid clavicle on the left again noted IMPRESSION: Correlate for possible congestive heart failure, pneumonia not excluded. There is underl lolly interstitial lung disease.
[2018-07-28] MEDS: CITALOPRAM HYDROBROMIDE 20 MG TAB PO SCH (09:07)
[2018-07-28] MEDS: MEGESTROL 400 MG/10 ML CUP PO SCH (09:07)
[2018-07-28] MEDS: guaiFENesin 600 MG TABLET.ER PO SCH ×2 (09:08→19:47)
[2018-07-28] MEDS: CLOPIDOGREL 75 MG TAB PO SCH (09:08)
[2018-07-28] MEDS: GABAPENTIN 100 MG CAP PO SCH ×2 (09:08→16:56)
[2018-07-28] MEDS: METOPROLOL TARTRATE 25 MG TAB PO SCH ×2 (09:08→19:48)
[2018-07-28] MEDS: FERROUS SULFATE 325 MG TAB PO SCH (09:08)
[2018-07-28] MEDS: TAMSULOSIN 0.4 MG CAP.ER.24H PO SCH (09:09)
[2018-07-28] MEDS: FUROSEMIDE 10 MG/ML 4 ML VIAL IV SCH ×2 (09:10→19:47)
[2018-07-28] MEDS: metFORMIN 500 MG TAB PO SCH ×2 (09:13→16:57)
[2018-07-28 10:58] LABS: Glucose,Whole Blood 202 mg/dL (75-99)
[2018-07-28 11:01] LABS: Vancomycin,Random 16.7 ug/mL
--- NOTE | 2018-07-28 11:22 | P.PN ---
Subjective Progress Note Date: 07/28/18 Principal diagnosis: Acute bilateral pneumonia, suspected gram-negative pneumonia with diffuse consolidation in the lower lobes bilaterally. A 69-year-old male patient, long term resident, who came into the hospital because of worsening shortness of breath. Because of his declining pressors status of Pulmicort and station was requested. The patient has had multiple hospitalizations. He was in the hospital last on 06/30/2018 and he was discharged on 07/02/2018. He was subsequently admitted on 07/06/2018 and discharged on 07/09/2018. His previous admissions related to treatment of a periorbital cellulitis for which she was given antibiotics and he responded very nicely. The patient was discharged on 07/09/2018 on a combination of Zosyn and vancomycin and he was released tomorrow with for further rehabilitation. However, he is not seeming to be a rehab candidate and the patient may likely stay there on a permanent basis at long term. He is known to have COPD. No still pulmonary fibrosis at ILD. He is known to have diabetes mellitus, hyperlipidemia and hypertension coronary artery disease and hypothyroidism. His is very much involved in this care. The patient has been reported to have on and off difficulty with swallowing special with liquidy material. The felt that at times. Aspirated on food material. During this current admission, the patient comes in for increased shortness of breath. He was placed on IV Lasix and subsequently he became prerenal in the creatinine came up to 2.54 on diuretics have been stopped. He is on no antibiotics for now. I reviewed the scan of the chest that was done yesterday and showed emphysema and multifocal bilateral pneumonia with small bilateral pleural effusion. The pneumonia is worsening lower lobes more so on the right. Heart is not enlarged. There is no mediastinal lymphadenopathy. Going back on previous admissions, the patient wasn't hospital on 06/09/2018 and he was infected in the urine with a Pneumonia That Was a ESBL Producing Organism. The Subsequent Blood Cultures Following That Has Been All Negative. He Also Had a White Cell Count of 8.8. Hemoglobin Stable at 8.1. He Is Currently on 10 L of Oxygen by Nasal Cannula. His Pulse Ox Is 89-90%. He Is Afebrile. On today's evaluation of 07/24/2018, the patient is being seen for a follow-up. Essentially the same compared to yesterday. Probably slightly better. I have him on a combination of Merrem and vancomycin covering extended gram- negative bacteria and staph. He still on 10 L of oxygen by nasal cannula. He has a weak cough. Unable to bring up much of sputum. Nevertheless there is no worsening his breathing status of shortness of breath over the past 24 hours. His renal function is stable. Creatinine is down to 2.1 and the patient has been taken off diuretics which has caused some prerenal azotemia. On today's evaluation of 07/25/2018, the patient is laying down comfortably in bed. He remains on a broad-spectrum antibiotic coverage and the patient is on a combination of meropenem and vancomycin. He is still on high flow oxygen at 10 L per minute nasal cannula. He is not doing much of activity. He continues to be in bed all the time. Barely using his incentive spirometer. He has been taken off diuretics and there has been improvement in the renal function and creatinine is down to 2.0. Rest of the blood work and electrodes are all within normal limits. The vancomycin random level was 29.8. No fever. No chills. Unable to wean down the FiO2 any further as the patient's pulse ox is around 92% on high flow oxygen. No other significant events overnight. On 07/26/2018 patient seen in follow-up on selective care unit. He is resting in bed, currently down to 8 L per high flow nasal cannula. Remains congested, his current antibiotic coverage includes meropenem and vancomycin. Blood cultures show no growth since admission. No fever or chills, vital signs are stable. Patient has a loose congested cough, and there is some dried rash phlegm on his gown. These labs have been reviewed, WBC 7.2, hemoglobin is 8.2, sodium is 139, potassium is 5.4, chloride is 114, BUN is 42 creatinine is 1.9. The patient is seen again today 07/27/2018 in follow-up on the selective care unit. He is currently awake and alert in no acute distress. He is resting comfortably in bed. He does continue to require 8 L high flow nasal cannula to maintain O2 saturations in the mid 90s. He's been afebrile. Hemodynamically stable. Blood culture reveals no growth. Creatinine 2.09. He remains on vancomycin and meropenem. He remains on IV diuretics. Remains on Symbicort. The patient seen again today 07/28/2018 in follow-up on the selective care unit. He is awake and alert in no acute distress. He denies any worsening shortness of breath, cough or congestion. He is maintaining good O2 saturations in the upper 90s on 8 L high flow nasal cannula. He's afebrile. Hemodynamically stable. Chest x-ray continues to show some fluid volume overload. He is on Lasix 40 mg IV every 12 hours. He remains on Symbicort and meropenem. Blood culture reveals no growth. White count 6.2. Hemoglobin 8.4. Creatinine 2.06. Objective - Vital Signs Vital signs: Vital Signs Temp 97.7 F 07/28/18 04:00 Pulse 58 L 07/28/18 04:00 Resp 18 07/28/18 04:00 BP 109/56 07/28/18 04:00 Pulse Ox 96 07/28/18 04:00 Intake & Output 07/27/18 07/28/18 07/28/18 18:59 06:59 18:59 Intake Total 480 80 400 Output Total 2000 1200 Balance -1520 -1120 400 Weight 64.5 kg 65.5 kg Intake: Oral 480 80 400 Output: Urine 2000 1200 Other: Voiding Method Indwelling Catheter Indwelling Catheter # Voids 0 # Bowel Movements 1 - Exam Gen. appearance, comfortable in no acute distress currently on 8 L high flow nasal cannula Head exam was generally normal. There was no scleral icterus or corneal arcus. Mucous membranes were moist. HEENT: Head is atraumatic, normocephalic. Pupils equal, round. Sclera anicteric. Conjunctiva are clear. Mucous membranes of the mouth are moist. Neck is supple. There is no elevated jugular venous pressure. carotid bruit is heard. HEART EXAMINATION: Cardiac exam revealed the PMI to be normally situated and sized. The rhythm was regular and no extrasystoles were noted during several minutes of auscultation. The first and second heart sounds were normal and physiologic splitting of the second heart sound was noted. There were no murmurs , rubs, clicks, or gallops. CHEST EXAMINATION: Lungs are clear with fine crackles to bilateral bases. No chest wall tenderness is noted on palpation or with deep breathing. ABDOMEN: Abdominal exam revealed normal bowel sounds. The abdomen was soft, non- tender, and without masses, organomegaly, or appreciable enlargement of the abdominal aorta. EXTREMITIES: 1+ peripheral pulses with no evidence of peripheral edema and no calf tenderness noted]. NEUROLOGIC patient is awake, alert and oriented X1 Examination of the skin revealed no evidence of significant rashes, suspicious appearing nevi or other concerning lesions. - Labs CBC & Chem 7: 07/28/18 06:31 07/28/18 06:31 Labs: Abnormal Lab Results - Last 24 Hours (Table) 07/27/18 07/27/18 07/27/18 Range/Units 12:03 16:30 20:55 RBC (4.30-5.90) m/uL Hgb (13.0-17.5) gm/dL Hct (39.0-53.0) % MCV (80.0-100.0) fL Potassium (3.5-5.1) mmol/L Chloride (98-107) mmol/L BUN (9-20) mg/dL Creatinine (0.66-1.25) mg/dL POC Glucose (mg/dL) 129 H 171 H 195 H (75-99) mg/dL 07/28/18 07/28/18 07/28/18 Range/Units 06:31 06:31 10:55 RBC 2.62 L (4.30-5.90) m/uL Hgb 8.4 L (13.0-17.5) gm/dL Hct 26.2 L (39.0-53.0) % MCV 100.1 H (80.0-100.0) fL Potassium 5.8 H (3.5-5.1) mmol/L Chloride 109 H (98-107) mmol/L BUN 43 H (9-20) mg/dL Creatinine 2.06 H (0.66-1.25) mg/dL POC Glucose (mg/dL) 202 H (75-99) mg/dL Assessment and Plan Assessment: Impression: 1 acute bilateral pneumonia, suspect gram-negative pneumonia with diffuse consolidation lower lobes bilaterally. Consideration is to be given for a gram- negative ESBL producing organisms knowing that the patient has been infected with this in the past and the patient had a ESBL producing Klebsiella pneumoniae in the urine. The patient is currently on Merrem. There is also some evidence of fluid volume overload and he is currently on Lasix 40 mg IV every 12 hours. 2 acute hypoxic respiratory failure secondary to above currently on high flow oxygen at 8 L per minute there is a cannula 3 high aspiration risk 4 dementia with impairment in cognitive functions and significant debility and impairment of the performance and functional status 5 history of CVA/TIA 6 coronary artery disease with previous [place] 7 recent hospitalization for periorbital cellulitis, recovered 8 unexplained weight loss 9 macular degeneration 10 BPH 11 diabetes mellitus type 2 12 peripheral neuropathy 13 peripheral vascular disease 14 diverticular disease 15 hypothyroidism 16 long term resident Scar: The patient was seen and evaluated by Dr. Fuentes. Chest x-ray reviewed. Some evidence of fluid volume overload. Possible underlying interstitial lung disease. Most likely pneumonia versus atypical CHF. He remains on meropenem. He is on IV diuretics. He remains in a negative balance. We will continue to titrate down the FiO2 L maintain O2 saturations greater than 90%. We will continue to follow and make further recommendations based on his clinical status. I, the cosigning physician, performed a history & physical examination of the patient. Lungs sounds with few scattered rhonchi, crackles in the posterior bases. Maintaining good O2 saturations in the 90s on 8 L high flow nasal cannula. I discussed the assessment and plan of care with my nurse practitioner , Dina Ramos. I attest to the above note as dictated by her.
[2018-07-28] MEDS ORDERED: VANCOMYCIN 1,250 MG in SODIUM CHLORIDE 0.9% 250 ML IVPB ONE (15:00)
[2018-07-28] MEDS: LACTOBACILLUS ACIDOPH & BULGAR 1 EACH PACKET PO SCH (16:57)
[2018-07-28] MEDS: POTASSIUM CHLORIDE ER 10 MEQ TAB.ER.PRT PO SCH (16:57)
[2018-07-28 17:01] LABS: Glucose,Whole Blood 127 mg/dL (75-99)
[2018-07-28] MEDS: DONEPEZIL 10 MG TAB PO SCH (19:47)
[2018-07-28] MEDS: ASPIRIN 81 MG PO SCH (19:48)
[2018-07-28] MEDS: SODIUM CHLORIDE 0.9% 500 ML 500 ML IV SCH (19:52)
[2018-07-28 20:51] LABS: Glucose,Whole Blood 142 mg/dL (75-99)
--- NOTE | 2018-07-28 22:29 | PN ---
PROGRESS NOTE DATE OF SERVICE: 07/28/2018. PRESENTING COMPLAINT: Tired, short of breath. INTERVAL HISTORY: This patient has had 2 recent admissions for right periorbital cellulitis, finished a course of antibiotics on July 21, 2018. Patient admitted for CHF and then went into acute renal failure. Subsequently, had acute respiratory failure, felt bilateral severe pneumonia. The patient remains on broad-spectrum antibiotics, remains on high-flow oxygen. Not eating much. Weak and tired. Still feeling run down. REVIEW OF SYSTEMS: Done for constitutional, cardiovascular, GI, pulmonary and relevant findings as above. CURRENT MEDICATIONS: Current medications are reviewed that include IV vancomycin, IV meropenem, IV Lasix. PHYSICAL EXAMINATION: VITAL SIGNS: Temperature 96.8, pulse 53, respiration 16, blood pressure 101/64, pulse ox 97% on 8 L. GENERAL APPEARANCE: Lying in bed, tired appearing. EYES: Pupils equal. Conjunctivae pale. HEENT: External appearance of nose and ears normal. Oral cavity dry. Neck: JVD unable to assess. Mass not palpable. RESPIRATORY: Effort increased. LUNGS: Decreased breath sounds. Crackles. CARDIOVASCULAR: First and second sounds normal. No edema. ABDOMEN: Soft, nontender. Liver and spleen not palpable. PSYCHIATRY: Awake, answering simple questions. Tired and run down. INVESTIGATIONS: White count 6.2, potassium 5.8, BUN 43, creatinine 2.06. Chest x-ray film reviewed by me shows pulmonary interstitial pattern. The patient's previous CT scan was reviewed with Dr. Fuentes. The patient also got underlying pulmonary fibrosis on top of which he now has had got pneumonia. ASSESSMENT: 1. Acute congestive heart failure exacerbation from diastolic dysfunction. Ejection fraction 50-55 percent probably now euvolemic. 2. Bilateral chronic pulmonary fibrosis after review of CT scan as discussed with Dr. Fuentes. 3. Acute periorbital cellulitis involvement of perirectus muscle from last admission. The patient completed a course of antibiotics on 07/21/2018. 4. Acute severe hypoxic respiratory failure from bilateral pneumonia remains on 8 L of high-flow oxygen along with bilateral pneumonia that could be aspiration, slow to respond. 5. Chronic obstructive pulmonary disease in an ex-smoker. 6. Diabetes mellitus type 2 on oral hypoglycemic. 7. Hyperlipidemia. 8. Essential hypertension. 9. Coronary artery disease with prior history of myocardial infarction. 10.Primary osteoarthritis. 11.Mild to moderate cognitive impairment from late onset Alzheimer's dementia. 12.Macular degeneration. 13.Chronic gait dysfunction, uses a walker at baseline. 14.Chronic colonic diverticulosis. 15.Normocytic anemia cause unknown, being followed by Dr. Shelby. 16.Peripheral neuropathy secondary to diabetes. 17.Chronic urine outflow obstruction, has a Galicia catheter being followed by Dr. Milner. 18.Chronically occluded left internal carotid artery. 19.Stage II sacral decubitus ulcer, present on admission. 20.Acute renal failure likely prerenal from diuresis. PLAN: Discussed with Dr. Fuentes at length. Patient's prognosis appears to be rather poor. Patient is not really improving. He has had multiple comorbidities. I told the nurse to call in the tomorrow to discuss possible hospice. I did talk briefly about this to the patient. Will have a family meeting in the presence of the and take it from there. MMANAHI / ARLYNN: [id number] /
[2018-07-29] MEDS: PANTOPRAZOLE 40 MG TABLET PO SCH ×2 (05:00→16:26)
[2018-07-29 06:24] LABS: Glucose,Whole Blood 99 mg/dL (75-99)
[2018-07-29 06:47] LABS: Calcium 9.7 mg/dL (8.4-10.2); Potassium 5.9 mmol/L (3.5-5.1)
[2018-07-29] MEDS: METOPROLOL TARTRATE 25 MG TAB PO SCH ×2 (08:34→21:55)
[2018-07-29] MEDS: guaiFENesin 600 MG TABLET.ER PO SCH ×2 (08:34→21:55)
[2018-07-29] MEDS: GABAPENTIN 100 MG CAP PO SCH ×2 (08:34→16:26)
[2018-07-29] MEDS: metFORMIN 500 MG TAB PO SCH ×2 (08:34→16:16)
[2018-07-29] MEDS: CITALOPRAM HYDROBROMIDE 20 MG TAB PO SCH (08:34)
[2018-07-29] MEDS: MEGESTROL 400 MG/10 ML CUP PO SCH (08:34)
[2018-07-29] MEDS: FUROSEMIDE 10 MG/ML 4 ML VIAL IV SCH ×2 (08:34→21:55)
[2018-07-29] MEDS: SYMBICORT 80-4.5 MCG INHALER INHALATION SCH ×2 (08:52→21:00)
[2018-07-29 11:58] LABS: Glucose,Whole Blood 127 mg/dL (75-99)
[2018-07-29] MEDS: TAMSULOSIN 0.4 MG CAP.ER.24H PO SCH (12:48)
[2018-07-29] MEDS: MEROPENEM 1 GM in SODIUM CHLORIDE 0.9% 100 ML IVPB SCH (12:48)
--- NOTE | 2018-07-29 13:10 | P.PN ---
Subjective Progress Note Date: 07/29/18 Principal diagnosis: Acute bilateral pneumonia, suspected gram-negative pneumonia with diffuse consolidation in the lower lobes bilaterally. A 69-year-old male patient, [facility] resident, who came into the hospital because of worsening shortness of breath. Because of his declining pressors status of Pulmicort and station was requested. The patient has had multiple hospitalizations. He was in the hospital last on 06/30/2018 and he was discharged on 07/02/2018. He was subsequently admitted on 07/06/2018 and discharged on 07/09/2018. His previous admissions related to treatment of a periorbital cellulitis for which she was given antibiotics and he responded very nicely. The patient was discharged on 07/09/2018 on a combination of Zosyn and vancomycin and he was released tomorrow with for further rehabilitation. However, he is not seeming to be a rehab candidate and the patient may likely stay there on a permanent basis at [facility]. He is known to have COPD. No still pulmonary fibrosis at ILD. He is known to have diabetes mellitus, hyperlipidemia and hypertension coronary artery disease and hypothyroidism. His is very much involved in this care. The patient has been reported to have on and off difficulty with swallowing special with liquidy material. The felt that at times. Aspirated on food material. During this current admission, the patient comes in for increased shortness of breath. He was placed on IV Lasix and subsequently he became prerenal in the creatinine came up to 2.54 on diuretics have been stopped. He is on no antibiotics for now. I reviewed the scan of the chest that was done yesterday and showed emphysema and multifocal bilateral pneumonia with small bilateral pleural effusion. The pneumonia is worsening lower lobes more so on the right. Heart is not enlarged. There is no mediastinal lymphadenopathy. Going back on previous admissions, the patient wasn't hospital on 06/09/2018 and he was infected in the urine with a Pneumonia That Was a ESBL Producing Organism. The Subsequent Blood Cultures Following That Has Been All Negative. He Also Had a White Cell Count of 8.8. Hemoglobin Stable at 8.1. He Is Currently on 10 L of Oxygen by Nasal Cannula. His Pulse Ox Is 89-90%. He Is Afebrile. On today's evaluation of 07/24/2018, the patient is being seen for a follow-up. Essentially the same compared to yesterday. Probably slightly better. I have him on a combination of Merrem and vancomycin covering extended gram- negative bacteria and staph. He still on 10 L of oxygen by nasal cannula. He has a weak cough. Unable to bring up much of sputum. Nevertheless there is no worsening his breathing status of shortness of breath over the past 24 hours. His renal function is stable. Creatinine is down to 2.1 and the patient has been taken off diuretics which has caused some prerenal azotemia. On today's evaluation of 07/25/2018, the patient is laying down comfortably in bed. He remains on a broad-spectrum antibiotic coverage and the patient is on a combination of meropenem and vancomycin. He is still on high flow oxygen at 10 L per minute nasal cannula. He is not doing much of activity. He continues to be in bed all the time. Barely using his incentive spirometer. He has been taken off diuretics and there has been improvement in the renal function and creatinine is down to 2.0. Rest of the blood work and electrodes are all within normal limits. The vancomycin random level was 29.8. No fever. No chills. Unable to wean down the FiO2 any further as the patient's pulse ox is around 92% on high flow oxygen. No other significant events overnight. On 07/26/2018 patient seen in follow-up on selective care unit. He is resting in bed, currently down to 8 L per high flow nasal cannula. Remains congested, his current antibiotic coverage includes meropenem and vancomycin. Blood cultures show no growth since admission. No fever or chills, vital signs are stable. Patient has a loose congested cough, and there is some dried rash phlegm on his gown. These labs have been reviewed, WBC 7.2, hemoglobin is 8.2, sodium is 139, potassium is 5.4, chloride is 114, BUN is 42 creatinine is 1.9. On 07/29/2018 patient seen in follow-up. Patient is seen resting in bed, he appears to be fatigued, and he is answering questions yes and no answers, but she wants to sleep. Does not appear to be in any acute distress, currently on 6 L per nasal cannula, with a pulse ox of 98%, this can probably be further wean down. Lung sounds are diminished, no rhonchi or wheezes noted, he is afebrile, cultures remain negative since admission. Labs have been reviewed, Rayna BC 6.2, hemoglobin is 8.4, sodium is 139, potassium is 5.9, chloride is 110, BUN is 44, creatinine is 2.05. He is on IV diuretics, he is in negative fluid balance. She remains on a combination of meropenem and vancomycin. Yesterday his chest x-ray showed persistence reticulonodular infiltrates throughout both lung malone, no significant improvement, small pleural effusions. There is a meeting with patient's family today and the attending physician in regards to hospice care. Patient debilitated, has been maximized on medical treatment, and has not made significant improvement. Objective - Vital Signs Vital signs: Vital Signs Temp 98.5 F 07/29/18 12:00 Pulse 70 07/29/18 12:00 Resp 18 07/29/18 12:00 BP 101/50 07/29/18 12:00 Pulse Ox 98 07/29/18 12:00 Intake & Output 07/28/18 07/29/18 07/29/18 18:59 06:59 18:59 Intake Total 540 90 Output Total 920 750 Balance -380 -750 90 Weight 63 kg Intake: Oral 540 90 Output: Urine 920 750 Other: Voiding Method Indwelling Catheter Indwelling Catheter Indwelling Catheter # Bowel Movements 1 2 - Exam Gen. appearance, comfortable likely distress currently on 6 L by nasal cannula, appears very fatigued on today's exam, sleepy Head exam was generally normal. There was no scleral icterus or corneal arcus. Mucous membranes were moist. HEENT: Head is atraumatic, normocephalic. Pupils equal, round. Sclera anicteric. Conjunctiva are clear. Mucous membranes of the mouth are moist. Neck is supple. There is no elevated jugular venous pressure. carotid bruit is heard. HEART EXAMINATION: Cardiac exam revealed the PMI to be normally situated and sized. The rhythm was regular and no extrasystoles were noted during several minutes of auscultation. The first and second heart sounds were normal and physiologic splitting of the second heart sound was noted. There were no murmurs , rubs, clicks, or gallops. CHEST EXAMINATION:[ Lungs are diminished. No chest wall tenderness is noted on palpation or with deep breathing.] ABDOMEN: Abdominal exam revealed normal bowel sounds. The abdomen was soft, non- tender, and without masses, organomegaly, or appreciable enlargement of the abdominal aorta. EXTREMITIES:[ 1+ peripheral pulses with no evidence of peripheral edema and no calf tenderness noted]. NEUROLOGIC [patient is awake, alert and oriented X1] Examination of the skin revealed no evidence of significant rashes, suspicious appearing nevi or other concerning lesions. - Labs CBC & Chem 7: 07/28/18 06:31 07/29/18 05:38 Labs: Abnormal Lab Results - Last 24 Hours (Table) 07/28/18 07/28/18 07/29/18 Range/Units 17:00 20:49 05:38 Potassium 5.9 H (3.5-5.1) mmol/L Chloride 110 H (98-107) mmol/L BUN 44 H (9-20) mg/dL Creatinine 2.05 H (0.66-1.25) mg/dL POC Glucose (mg/dL) 127 H 142 H (75-99) mg/dL 07/29/18 Range/Units 11:42 Potassium (3.5-5.1) mmol/L Chloride (98-107) mmol/L BUN (9-20) mg/dL Creatinine (0.66-1.25) mg/dL POC Glucose (mg/dL) 127 H (75-99) mg/dL Assessment and Plan Plan: 1 acute bilateral pneumonia, suspect gram-negative pneumonia with diffuse consolidation lower lobes bilaterally. Consideration is to be given for a gram- negative ESBL producing organisms knowing that the patient has been infected with this in the past and the patient had a ESBL producing Klebsiella pneumoniae in the urine. The patient is currently on a combination of vancomycin and Merrem. 2 acute hypoxic respiratory failure secondary to above currently on high flow oxygen at 6 L per minute there is a cannula 3 high aspiration risk 4 dementia with impairment in cognitive functions and significant debility and impairment of the performance and functional status 5 history of CVA/TIA 6 coronary artery disease with previous [place] 7 recent hospitalization for periorbital cellulitis, recovered 8 unexplained weight loss 9 macular degeneration 10 BPH 11 diabetes mellitus type 2 12 peripheral neuropathy 13 peripheral vascular disease 14 diverticular disease 15 hypothyroidism 16 [facility] resident Plan He appears to be lethargic, and fatigued on today's exam, yesterday's chest x- ray showed persistence of reticulonodular infiltrates throughout both lung malone, no significant improvement, small pleural effusions, despite diuresis. Afebrile, vital signs are stable. No leukocytosis, cultures remain negative, renal profile is stable. Patient seems to be very weak and worn out. There is a meeting with patient's family today and the attending physician in regards to hospice care. Patient is significantly debilitated, has been maximized on medical treatment, and has not made significant improvement. Palliative/ hospice care initiation would be appropriate at this stage. I performed a history & physical examination of the patient and discussed their management with my nurse practitioner, Zainab Valentin. I reviewed the nurse practitioner's note and agree with the documented findings and plan of care. Lung sounds are positive for diminished breath sounds. The findings and the impression was discussed with the patient. I attest to the documentation by the nurse practitioner. Time with Patient: Less than 30
[2018-07-29] MEDS: POTASSIUM CHLORIDE ER 10 MEQ TAB.ER.PRT PO SCH (16:16)
[2018-07-29] MEDS: FERROUS SULFATE 325 MG TAB PO SCH (16:16)
[2018-07-29] MEDS: SODIUM POLYSTYRENE SULFONATE 15 GM/60 ML BOTTLE PO SCH (16:26)
[2018-07-29] MEDS: CLOPIDOGREL 75 MG TAB PO SCH (16:26)
[2018-07-29] MEDS: LACTOBACILLUS ACIDOPH & BULGAR 1 EACH PACKET PO SCH (16:26)
[2018-07-29 16:48] LABS: Glucose,Whole Blood 133 mg/dL (75-99)
[2018-07-29] MEDS: SODIUM CHLORIDE 0.9% 500 ML 500 ML IV SCH (17:14)
[2018-07-29 21:03] LABS: Glucose,Whole Blood 119 mg/dL (75-99)
[2018-07-29] MEDS: ASPIRIN 81 MG PO SCH (21:55)
[2018-07-29] MEDS: DONEPEZIL 10 MG TAB PO SCH (21:55)
--- NOTE | 2018-07-29 23:09 | PN ---
PROGRESS NOTE DATE OF SERVICE: 07/29/2018 PRESENTING COMPLAINT: Tired, short of breath. INTERVAL HISTORY: This is a patient with two recent admissions for right periorbital cellulitis. He finished a course of antibiotics on 07/21/2018 for the same. He had a bit of CHF exacerbation and went into acute renal failure, subsequently went into acute respiratory failure with bilateral severe pneumonia and has remained on broad-spectrum antibiotics with minimal improvement. Remains on high-flow oxygen. Also patient has underlying pulmonary fibrosis. He remains weak and tired with minimal oral intake. Pretty much tired, rundown. Remains the same with no improvement. REVIEW OF SYSTEMS: Attempted for constitutional, cardiovascular, GI, pulmonary; relevant findings as above. CURRENT MEDICATIONS: Reviewed. They include IV meropenem, IV Lasix. PHYSICAL EXAMINATION: Temperature 98.4, pulse 63, respiration 17, blood pressure 98/54, pulse ox 99% on high- flow oxygen 6 L. GENERAL APPEARANCE: Lying in bed, tired-appearing. EYES: Pupils equal. Conjunctivae pale. HEENT: External appearance of nose and ears normal. Oral cavity dry. NECK: JVD unable to assess. Mass not palpable. RESPIRATORY: Effort increased. LUNGS: Decreased breath sounds. Crackles. CARDIOVASCULAR: First and second sounds normal. No edema. ABDOMEN: Soft, non-tender. Liver and spleen not palpable. PSYCHIATRY: Does answer simple questions but remains tired and rundown. INVESTIGATIONS: Potassium 5.9, BUN 44, creatinine 2.05. ASSESSMENT: 1. Acute congestive heart failure exacerbation from diastolic dysfunction, ejection fraction 50% to 55%, possibly euvolemic. 2. Bilateral chronic pulmonary fibrosis. 3. Acute periorbital cellulitis involving the christina rectus muscles last admission on the right side; completed a course of antibiotics for the same on 07/21/2018. 4. Acute severe hypoxic respiratory failure from bilateral pneumonia, on 6 L high-flow oxygen. 5. Bilateral pneumonia that could be recurrent aspiration. 6. Chronic obstructive pulmonary disease in an ex-smoker. 7. Diabetes mellitus, type 2, on oral hypoglycemic. 8. Hyperlipidemia. 9. Essential hypertension. 10.Coronary artery disease with prior history of myocardial infarction. 11.Primary osteoarthritis. 12.Mild to moderate cognitive impairment from late-onset Alzheimer's dementia. 13.Macular degeneration. 14.Chronic gait dysfunction. Uses a walker at baseline. 15.Chronic colonic diverticulosis. 16.Normocytic anemia, cause unknown, being followed by Dr. Shelby. 17.Peripheral neuropathy secondary to diabetes. 18.Chronic urinary outflow obstruction. Has a Galicia catheter, being followed by Dr. Milner. 19.Chronically occluded left internal carotid artery. 20.Stage II sacral decubitus ulcer, present on admission. 21.Acute renal failure, likely prerenal, from diuresis, with slow response. PLAN: Patient continues to do poorly. Continue with current medication and treatment plan. As patient is not eating much, we will discontinue the IV Lasix. I asked for a meeting later this evening with his . ADVANCED CARE PLANNING: I met with the patient's about overall patient's situation. She was quite aware of the patient's extremely poor failing health, knowing that he continues to do poorly. Hospice was approached, given his poor status, and she is agreeable to proceed with the same. Multiple questions were answered. Patient is also of the same though, according to his . At home she had briefly talked about this. She is looking at different options, either [facility] or [facility]. Inpatient hospice also will be entertained if the patient meets criteria because of poor respiratory status. Questions were answered. Also Fox from Social Work joined in in the latter part of the meeting and will coordinate the process tomorrow. Total time spent in this process was more than 35 minutes. TAQUERIA / NOMI: [id number] /
[2018-07-30] MEDS: SODIUM POLYSTYRENE SULFONATE 15 GM/60 ML BOTTLE PO SCH (00:06)
[2018-07-30] MEDS: MEROPENEM 1 GM in SODIUM CHLORIDE 0.9% 100 ML IVPB SCH ×2 (00:51→12:53)
[2018-07-30] MEDS: PANTOPRAZOLE 40 MG TABLET PO SCH ×2 (05:55→17:56)
[2018-07-30 06:12] LABS: Glucose,Whole Blood 100 mg/dL (75-99)
[2018-07-30 06:24] LABS: Calcium 9.4 mg/dL (8.4-10.2)
[2018-07-30] MEDS: SYMBICORT 80-4.5 MCG INHALER INHALATION SCH ×2 (08:22→20:13)
[2018-07-30] MEDS ORDERED: VANCOMYCIN 1,250 MG in SODIUM CHLORIDE 0.9% 250 ML IVPB ONE (09:00)
[2018-07-30] MEDS: GABAPENTIN 100 MG CAP PO SCH ×2 (10:07→17:56)
[2018-07-30] MEDS: FUROSEMIDE 10 MG/ML 4 ML VIAL IV SCH ×2 (10:07→21:34)
[2018-07-30] MEDS: MEGESTROL 400 MG/10 ML CUP PO SCH (10:07)
[2018-07-30] MEDS: METOPROLOL TARTRATE 25 MG TAB PO SCH ×2 (10:07→21:58)
[2018-07-30] MEDS: guaiFENesin 600 MG TABLET.ER PO SCH ×2 (10:07→21:35)
[2018-07-30] MEDS: CITALOPRAM HYDROBROMIDE 20 MG TAB PO SCH (10:07)
[2018-07-30] MEDS: metFORMIN 500 MG TAB PO SCH ×2 (10:08→18:06)
[2018-07-30 11:33] LABS: Glucose,Whole Blood 127 mg/dL (75-99)
[2018-07-30] MEDS: TAMSULOSIN 0.4 MG CAP.ER.24H PO SCH (12:53)
[2018-07-30] MEDS: SODIUM CHLORIDE 0.9% 500 ML 500 ML IV SCH (14:37)
[2018-07-30] MEDS: POTASSIUM CHLORIDE ER 10 MEQ TAB.ER.PRT PO SCH (14:39)
[2018-07-30 14:58] VITALS: BMI 22.7
[2018-07-30 16:52] LABS: Glucose,Whole Blood 190 mg/dL (75-99)
[2018-07-30] MEDS: LACTOBACILLUS ACIDOPH & BULGAR 1 EACH PACKET PO SCH (17:55)
[2018-07-30] MEDS: CLOPIDOGREL 75 MG TAB PO SCH (17:56)
[2018-07-30] MEDS: FERROUS SULFATE 325 MG TAB PO SCH (18:08)
[2018-07-30 21:00] LABS: Glucose,Whole Blood 156 mg/dL (75-99)
--- NOTE | 2018-07-30 22:49 | PN ---
PROGRESS NOTE DATE OF SERVICE: 07/30/2018 PRESENTING COMPLAINT: Weak and tired. INTERVAL HISTORY: Patient remains in bed, rather tired, on nasal cannula, eating small amounts. Patient's and family are coordinating hospice care. Supportive medications are still being given. Patient does feel weak and tired. He does answer simple questions. REVIEW OF SYSTEMS: Attempted for constitutional, cardiovascular, GI, pulmonary; relevant findings as above. CURRENT MEDICATIONS: Reviewed. They include oxygen. Antibiotics, etc. are being discontinued. PHYSICAL EXAMINATION: Temperature 97.6, pulse 54, respiration 18, blood pressure 105/54, pulse ox 98% on 5 L. GENERAL APPEARANCE: Lying in bed, tired-appearing. EYES: Pupils equal. Conjunctivae pale. HEENT: External appearance of nose and ears normal. Oral cavity dry. NECK: JVD unable to assess. Mass not palpable. RESPIRATORY: Effort increased. LUNGS: Decreased breath sounds. Some crackles. CARDIOVASCULAR: First and second sounds normal. No edema. ABDOMEN: Soft, non-tender. Liver and spleen not palpable. PSYCHIATRY: Patient is able to answer some simple questions. INVESTIGATIONS: Potassium 5, BUN 44, creatinine 2.11. ASSESSMENT: 1. Acute congestive heart failure exacerbation from diastolic dysfunction; ejection fraction 50% to 55%, now euvolemic. 2. Bilateral chronic pulmonary fibrosis. 3. Acute periorbital cellulitis involving the perirectus muscle from last admission. Did complete a course of antibiotics on 07/21/2018. 4. Acute severe hypoxic respiratory failure from bilateral pneumonia, on 6 L high-flow oxygen. 5. Bilateral pneumonia that could be recurrent aspiration. 6. Chronic obstructive pulmonary disease in an ex-smoker. 7. Diabetes mellitus, type 2, on oral hypoglycemic. 8. Hyperlipidemia. 9. Essential hypertension. 10.Coronary artery disease with prior history of myocardial infarction. 11.Primary osteoarthritis. 12.Mild to moderate cognitive impairment from late-onset Alzheimer's dementia. 13.Macular degeneration. 14.Chronic gait dysfunction. Uses a walker at baseline. 15.Chronic colonic diverticulosis. 16.Normocytic anemia, cause unknown, being followed by Dr. Shelby. 17.Peripheral neuropathy secondary to diabetes. 18.Chronic urinary outflow obstruction. Has a Galicia catheter; was being followed by Dr. Milner. 19.Chronically occluded left internal carotid artery. 20.Stage II sacral decubitus ulcer, present on admission. 21.Acute renal failure, likely prerenal, from diuresis. PLAN: police worker and registered nurse hh case manager are coordinating care. Patient's is trying to decide about taking the patient home or hospice house or [facility]. In the meantime, some of the nonessential medications will be cut back. Await further decision about place of transfer for hospice. Patient may be fed as tolerated. TAQUERIA / ARLYNN: [id number] /
[2018-07-31] MEDS: PANTOPRAZOLE 40 MG TABLET PO SCH ×2 (06:03→18:13)
[2018-07-31 07:36] LABS: Glucose,Whole Blood 159 mg/dL (75-99)
[2018-07-31] MEDS: FUROSEMIDE 10 MG/ML 4 ML VIAL IV SCH ×2 (09:03→20:55)
[2018-07-31] MEDS: CITALOPRAM HYDROBROMIDE 20 MG TAB PO SCH (09:03)
[2018-07-31] MEDS: guaiFENesin 600 MG TABLET.ER PO SCH ×2 (09:03→20:55)
[2018-07-31] MEDS: METOPROLOL TARTRATE 25 MG TAB PO SCH ×2 (09:03→20:55)
[2018-07-31] MEDS: GABAPENTIN 100 MG CAP PO SCH ×2 (09:04→18:12)
[2018-07-31 09:19] LABS: Calcium 9.2 mg/dL (8.4-10.2)
[2018-07-31] MEDS: TAMSULOSIN 0.4 MG CAP.ER.24H PO SCH (12:09)
--- NOTE | 2018-07-31 17:02 | PN ---
PROGRESS NOTE DATE OF SERVICE: 07/31/18. PRESENTING COMPLAINT: Weak and tired. INTERVAL HISTORY: The patient is in bed, answering simple questions. Weak, tired, exhausted. Still eating small amounts of food. at the bedside. Has a nasal cannula 6 L, congested cough. REVIEW OF SYSTEMS: Attempted for constitutional, cardiovascular, GI, pulmonary; relevant findings as above. CURRENT MEDICATIONS: Reviewed. PHYSICAL EXAMINATION: Temperature 98.8, pulse 58, respiratory 18, blood pressure 100/49, pulse ox 98% on 3 L. GENERAL APPEARANCE: Lying in bed, tired-appearing. EYES: Pupils equal. Conjunctivae normal. HEENT: External appearance of nose and ears normal. Oral cavity dry. NECK: JVD unable to assess. Mass not palpable. RESPIRATORY: Effort increased. Lungs, decreased breath sounds. Crackles. CARDIOVASCULAR: First and second sounds normal. No edema. ABDOMEN: Soft, nontender. Liver and spleen not palpable. PSYCHIATRY: Patient able answer simple questions. INVESTIGATIONS: BUN 42, creatinine 1.88. ASSESSMENT: 1. Acute congestive heart failure exacerbation from diastolic dysfunction. Ejection fraction 50-55 percent now euvolemic. 2. Bilateral chronic pulmonary fibrosis. 3. Acute periorbital cellulitis involving the perirectus muscle from last admission, did complete a course of antibiotics on 07/21/18. 4. Acute hypoxic respiratory failure from bilateral pneumonia on 6 L of oxygen. 5. Bilateral pneumonia that could be recurrent aspiration. 6. Chronic obstructive pulmonary disease in a current smoker. 7. Diabetes mellitus type 2. 8. Oral hypoglycemic. 9. Diabetes mellitus type 2 on oral hypoglycemic. 10.Hyperlipidemia. 11.Essential hypertension. 12.Coronary artery disease with prior history of myocardial infarction. 13.Primary osteoarthritis. 14.Mild to moderate cognitive impairment from late onset Alzheimer's dementia. 15.Macular degeneration. 16.Chronic gait disorder uses a walker at baseline. 17.Chronic colonic diverticulosis. 18.Normocytic anemia cause unknown. 19.Peripheral neuropathy secondary to diabetes. 20.Chronic urinary outflow obstruction, has a Galicia catheter. 21.Chronically occluded left internal carotid artery. 22.Stage II sacral decubitus ulcer present on admission. 23.Acute renal failure likely prerenal from diuretics. PLAN: Spoke to the at the bedside. Waiting for the patient getting transferred to place for hospice. I spoke to Corinna. At this point, the National Assessment was being done [facility]; hence discharge to hospice not placed today. I talked to the . Oral intake as tolerated. MMODL / IJN: [id number] /
[2018-07-31] MEDS: SODIUM CHLORIDE 0.9% 500 ML 500 ML IV SCH (17:11)
[2018-07-31 20:28] LABS: Glucose,Whole Blood 201 mg/dL (75-99)
[2018-08-01] MEDS: PANTOPRAZOLE 40 MG TABLET PO SCH ×2 (05:51→16:53)
[2018-08-01] MEDS: FUROSEMIDE 10 MG/ML 4 ML VIAL IV SCH ×2 (07:40→21:04)
[2018-08-01] MEDS: GABAPENTIN 100 MG CAP PO SCH ×2 (07:40→16:53)
[2018-08-01] MEDS: guaiFENesin 600 MG TABLET.ER PO SCH ×2 (07:40→21:04)
[2018-08-01] MEDS: METOPROLOL TARTRATE 25 MG TAB PO SCH ×2 (07:41→21:04)
[2018-08-01] MEDS: CITALOPRAM HYDROBROMIDE 20 MG TAB PO SCH (07:41)
[2018-08-01 07:51] LABS: Glucose,Whole Blood 95 mg/dL (75-99)
[2018-08-01] MEDS: TAMSULOSIN 0.4 MG CAP.ER.24H PO SCH (11:31)
--- NOTE | 2018-08-01 18:53 | PN ---
PROGRESS NOTE DATE OF SERVICE: 08/01/18. PRESENTING COMPLAINT: Weak and tired. INTERVAL HISTORY: The patient is in bed, awake, tired, has a cough, short of breath. Nasal cannula in place. Eating small amounts. REVIEW OF SYSTEMS: Done for constitutional, cardiovascular, GI, pulmonary; relevant findings above. CURRENT MEDICATIONS: Reviewed. PHYSICAL EXAMINATION: Temperature 97.3, pulse 73, respirations 16, blood pressure 113/59, pulse ox 97 percent on 3 L. GENERAL APPEARANCE: Lying in bed, awake tired. EYES: Pupils equal. Conjunctivae pale. HEENT: External appearance of nose and ears normal. Oral cavity dry. NECK: JVD unable to assess. Mass not palpable. RESPIRATORY: Effort increased. Lungs decreased breath sounds. Some crackles. CARDIOVASCULAR: First and second sounds normal. No edema. ABDOMEN: Soft, nontender. Liver and spleen not palpable. PSYCHIATRY: Answering simple questions. INVESTIGATIONS: No blood work. ASSESSMENT: 1. Bilateral pneumonia from recurrent aspiration. 2. Chronic obstructive pulmonary disease. 3. Diabetes type 2. 4. Coronary artery disease with prior history of myocardial infarction. 5. Acute congestive heart failure exacerbation, diastolic dysfunction, EF 50 to 55%. PLAN: The patient is being transferred for hospice. Prognosis remains poor. Currently no family is at the bedside. Probably patient will go back to [facility] for the same. MMODL / IJN: [id number] /
[2018-08-02] MEDS: PANTOPRAZOLE 40 MG TABLET PO SCH ×2 (05:58→16:59)
[2018-08-02] MEDS: FUROSEMIDE 10 MG/ML 4 ML VIAL IV SCH (09:56)
[2018-08-02] MEDS: TAMSULOSIN 0.4 MG CAP.ER.24H PO SCH (09:56)
[2018-08-02] MEDS: CITALOPRAM HYDROBROMIDE 20 MG TAB PO SCH (09:56)
[2018-08-02] MEDS: guaiFENesin 600 MG TABLET.ER PO SCH (09:56)
[2018-08-02] MEDS: METOPROLOL TARTRATE 25 MG TAB PO SCH (09:57)
[2018-08-02] MEDS: GABAPENTIN 100 MG CAP PO SCH ×2 (09:57→16:59)
--- NOTE | 2018-08-02 15:22 | DS ---
DISCHARGE SUMMARY DATE OF ADMISSION: 07/19/2018. DATE OF DISCHARGE: 08/02/2018. FINAL DIAGNOSIS: 1. Acute congestive heart failure exacerbation from diastolic dysfunction. Ejection fraction 50-55 percent. 2. Bilateral chronic pulmonary fibrosis. 3. Acute periorbital cellulitis involving the christina rectus muscle on the right side from last admission completed a course of antibiotics for the same on 07/21/18. 4. Acute severe hypoxic respiratory failure from bilateral pneumonia. 5. Bilateral pneumonia that could be recurrent aspiration including gram-negative organism. 6. Chronic obstructive pulmonary disease in an ex-smoker. 7. Diabetes mellitus type 2 on oral hypoglycemics. 8. Hyperlipidemia. 9. Essential hypertension. 10.Coronary artery disease, prior history of myocardial infarction. 11.Primary osteoarthritis. 12.Mild to moderate cognitive impairment from late onset Alzheimer's dementia. 13.Macular degeneration. 14.Chronic gait dysfunction uses a walker at baseline. 15.Chronic colonic diverticulosis. 16.Normocytic anemia cause unknown, being followed by Dr. Shelby. 17.Peripheral neuropathy secondary to diabetes. 18.Chronic urinary stress outflow obstruction with a Galicia catheter was being followed by Dr. Milner. 19.Chronically occluded left internal carotid artery. 20.Stage II sacral decubitus ulcer, present on admission. 21.Acute renal failure likely prerenal from diuresis. CONSULTATIONS: 1. [facility]. 2. Dr. Ca's colleagues from [facility]. HOSPITAL COURSE: This patient was recently in the hospital with acute right periorbital cellulitis. Now at this time, presented with acute CHF exacerbation. The patient went into acute respiratory failure and acute renal failure with bilateral pneumonia. The patient has underlying chronic fibrosis. The patient has been doing poorly for last few admissions and continues to go down. The patient's and patient then agreed to go into hospice for failing condition and poor quality of life. PHYSICAL EXAMINATION: On examination temperature 98, pulse 62, respiration 18, blood pressure 100/55 pulse ox 98% on 3 liters. GENERAL APPEARANCE: Lying in bed, tired-appearing. Lungs decreased breath sounds. The patient is able answer simple questions. The patient is able to eat small amounts of food. Care was discussed with the patient and and daughter at the bedside also which she left from the [facility]. The patient will return to rehab place today with then be open up to hospice. LABS: Potassium 5, BUN 42, creatinine 1.88. HOME GO MEDICATIONS: 1. Prilosec 20 mg p.o. b.i.d. 2. Lopressor 25 mg p.o. b.i.d. 3. Potassium 10 mEq p.o. daily. 4. Dulcolax 10 mg rectal daily p.r.n. 5. Neurontin 200 mg p.o. b.i.d. 6. Flomax 0.8 mg p.o. daily at noon. 7. Celexa 20 mg p.o. daily. 8. Lasix 60 mg p.o. daily. 9. DuoNeb q.i.d. 10.Ativan 0.5 mg p.o. q.8h p.r.n. 11.Tylenol 650 q.6 hours p.r.n. DISPOSITION: . FOLLOWUP: Follow up with Dr. Mendes. The patient to follow up with hospice at [facility]. Diet: Dysphagia 3 food chopped, nectar thick liquids. No straws. Aspiration precautions. Discussion discharge planning more than 35 minutes. MMODL / IJN: [id number] /
[2018-08-02 15:31] VITALS: RESP 16
[2018-08-02 15:35] VITALS: BP 110/60; PULSE 69; TEMP 98.1
== END 2018-08-02 18:50 | DRG 291 ==
LOC: EC 09:33 → 3SCARD 12:20 → 4MS4W 07-30 22:41
PROVIDERS: ADMIT Hospitalist; ATTEND Hospitalist
DX: I11.0 Hypertensive heart disease with heart failure (principal); J15.6 Pneumonia due to other Gram-negative bacteria; J96.01 Acute respiratory failure with hypoxia; J69.0 Pneumonitis due to inhalation of food and vomit; L03.213 Periorbital cellulitis; N13.8 Other obstructive and reflux uropathy; N17.9 Acute kidney failure, unspecified; I50.33 Acute on chronic diastolic (congestive) heart failure; L89.152 Pressure ulcer of sacral region, stage 2; I95.9 Hypotension, unspecified; E11.42 Type 2 diabetes mellitus with diabetic polyneuropathy; E11.51 Type 2 diabetes mellitus with diabetic peripheral angiopathy without gangrene; Z66 Do not resuscitate; J84.10 Pulmonary fibrosis, unspecified; D64.9 Anemia, unspecified; F02.80 Dementia in other diseases classified elsewhere, unspecified severity, without behavioral disturbance, psychotic disturbance, mood disturbance, and anxiety; J43.9 Emphysema, unspecified; I65.22 Occlusion and stenosis of left carotid artery; G30.1 Alzheimer's disease with late onset; T50.1X5A Adverse effect of loop [high-ceiling] diuretics, initial encounter; N40.1 Benign prostatic hyperplasia with lower urinary tract symptoms; I25.10 Atherosclerotic heart disease of native coronary artery without angina pectoris; E78.5 Hyperlipidemia, unspecified; E03.9 Hypothyroidism, unspecified; K44.9 Diaphragmatic hernia without obstruction or gangrene; R26.9 Unspecified abnormalities of gait and mobility; K21.9 Gastro-esophageal reflux disease without esophagitis; K57.30 Diverticulosis of large intestine without perforation or abscess without bleeding; M19.042 Primary osteoarthritis, left hand; M19.041 Primary osteoarthritis, right hand; H35.30 Unspecified macular degeneration; I25.2 Old myocardial infarction; Z79.02 Long term (current) use of antithrombotics/antiplatelets; Z79.82 Long term (current) use of aspirin; Z79.4 Long term (current) use of insulin; Z79.818 Long term (current) use of other agents affecting estrogen receptors and estrogen levels; Z79.51 Long term (current) use of inhaled steroids; Z79.899 Other long term (current) drug therapy; Z87.01 Personal history of pneumonia (recurrent); Z86.73 Personal history of transient ischemic attack (TIA), and cerebral infarction without residual deficits; Z86.19 Personal history of other infectious and parasitic diseases; Z87.891 Personal history of nicotine dependence; Z95.828 Presence of other vascular implants and grafts; Z80.1 Family history of malignant neoplasm of trachea, bronchus and lung; Z82.49 Family history of ischemic heart disease and other diseases of the circulatory system; Z83.3 Family history of diabetes mellitus; W06.XXXA Fall from bed, initial encounter
CPT/HCPCS: 36415; 71045; 71046; 71250; 74230; 80048; 80053; 80202; 82550; 82553; 83605; 83735; 83880; 84132; 84484; 85025; 85610; 85730; 87040; 87324; 93005; 93306; 94640; 94760; 96374; 99291